=== PATIENT | male | born 1965 | race Caucasian/White ===

== ENCOUNTER 2022-02-24 21:14 | Outpatient (REF) | payer MEDICAID, SELFPAY ==
[2022-02-24 22:05] LABS: Bilirubin Negative (Negative); Blood Negative (Negative); Clarity Clear (Clear); Glucose Negative (Negative); Ketones Negative (Negative); Leukocyte Esterase Negative (Negative); Nitrite Negative (Negative); Specific Gravity 1.015 (1.005-1.025); Urobilinogen 0.2 EU/dL (Up TO 0.2)
[2022-02-24 22:12] LABS: Abs Immature Grans 0.79 10^3/uL (0.0-0.06); Absolute Basophil Count 0.04 10^3/uL (0.0-0.2); Absolute Eosinophil Count 0.19 10^3/uL (0.0-0.7); Absolute Monocyte Count 1.49 10^3/uL (0.1-0.8); Absolute Neutrophil Count 6.78 10^3/uL (1.2-6.7); Basophils % 0.4; Eosinophils % 1.7; HCT 31.7 % (40.0-50.0); HGB 10.4 g/dL (13.5-17.5); Lymphocytes % 17.3; MCHC 32.8 % (32.0-36.0); MCV 85 fL (80-95); MPV 9.7 fL (8.0-11.0); Monocytes % 13.3; Neutrophils % 60.3; Nucleated RBC 0.3 % (0.0-0.3); Platelet Count 380 10^3/uL (130-400); RBC 3.72 10^6/uL (4.36-5.78); RDW 14.5 % (11.8-14.1); RDW-SD 44.9 fL; WBC 11.24 10^3/uL (4.4-10.8)
[2022-02-24 22:15] LABS: ALT 28 U/L (16-63); AST 9 U/L (15-37); Albumin 2.6 g/dL (3.4-5.0); Alkaline Phosphatase 105 U/L (46-116); Anion Gap 9.1 mmol/L (3-11); BUN 15 mg/dL (7-18); Bilirubin, Total 0.4 mg/dL (0.2-1.0); CO2 28.9 mmol/L (21.0-32.0); CREATININE 1.3 mg/dL (0.70-1.30); Calcium 7.9 mg/dL (8.5-10.1); Chloride 101 mmol/L (98-107); Estimated GFR 57.31 (mL/min/1.73m2); Glucose 92 mg/dL (74-106); Magnesium 2.2 mg/dL (1.8-2.4); Potassium 4.5 mmol/L (3.5-5.1); Sodium 139 mmol/L (136-145); Total Protein 6.2 g/dL (6.4-8.2)
[2022-02-24 22:21] LABS: Absolute Lymphocyte Count 1.94 10^3/uL (1.2-3.4)
[2022-02-25 12:40] LABS: PHOSPHORUS 4.2 mg/dL (2.6-4.7)
== END 2022-02-24 21:15 | disposition home or self-care (01) ==
LOC: LBN 21:14
PROVIDERS: Referring Provider Orthopaedic Surgery Adult Reconstructive Orthopaedic Surgery; Visit Provider Nurse Practitioner Family
DX: M00.9 Pyogenic arthritis, unspecified (principal); Z86.19 Personal history of other infectious and parasitic diseases; M25.562 Pain in left knee; M01.X62 Direct infection of left knee in infectious and parasitic diseases classified elsewhere; B49 Unspecified mycosis; N17.9 Acute kidney failure, unspecified; N39.0 Urinary tract infection, site not specified
CPT/HCPCS: 80053; 81003; 83735; 84100; 85025; 87086

== ENCOUNTER 2022-02-27 21:14 | Outpatient (REF) | payer MEDICAID, SELFPAY ==
[2022-02-27 15:23] LABS: ALT 21 U/L (16-63); AST 6 U/L (15-37); Albumin 2.7 g/dL (3.4-5.0); Alkaline Phosphatase 104 U/L (46-116); Anion Gap 6.7 mmol/L (3-11); BUN 15 mg/dL (7-18); Bilirubin, Total 0.3 mg/dL (0.2-1.0); CO2 27.3 mmol/L (21.0-32.0); CREATININE 1.2 mg/dL (0.70-1.30); Calcium 8.1 mg/dL (8.5-10.1); Chloride 106 mmol/L (98-107); Glucose 140 mg/dL (74-106); Magnesium 2.3 mg/dL (1.8-2.4); PHOSPHORUS 3.8 mg/dL (2.6-4.7); Potassium 4.4 mmol/L (3.5-5.1); Sodium 140 mmol/L (136-145); Total Protein 7.2 g/dL (6.4-8.2)
== END 2022-02-27 21:15 | disposition home or self-care (01) ==
LOC: LBN 21:14
PROVIDERS: Visit Provider Internal Medicine Infectious Disease
DX: M25.562 Pain in left knee (principal); M01.X62 Direct infection of left knee in infectious and parasitic diseases classified elsewhere; M00.9 Pyogenic arthritis, unspecified
CPT/HCPCS: 80053; 83735; 84100

== ENCOUNTER 2022-03-03 21:51 | Outpatient (REF) | payer MEDICAID, SELFPAY ==
[2022-03-03 22:57] LABS: Abs Immature Grans 0.29 10^3/uL (0.0-0.06); Absolute Basophil Count 0.02 10^3/uL (0.0-0.2); Absolute Eosinophil Count 0.11 10^3/uL (0.0-0.7); Absolute Lymphocyte Count 1.59 10^3/uL (1.2-3.4); Absolute Monocyte Count 1.37 10^3/uL (0.1-0.8); Absolute Neutrophil Count 11.73 10^3/uL (1.2-6.7); Basophils % 0.1; Eosinophils % 0.7; HCT 28.7 % (40.0-50.0); HGB 9.2 g/dL (13.5-17.5); Immature Grans % 1.9; Lymphocytes % 10.5; MCH 27.4 pg (27.0-33.0); MCHC 32.1 % (32.0-36.0); MCV 85 fL (80-95); MPV 9.1 fL (8.0-11.0); Monocytes % 9.1; Neutrophils % 77.7; Platelet Count 465 10^3/uL (130-400); RBC 3.36 10^6/uL (4.36-5.78); RDW 14.7 % (11.8-14.1); RDW-SD 45.8 fL
== END 2022-03-03 21:52 | disposition home or self-care (01) ==
LOC: LBN 21:51
PROVIDERS: Visit Provider Internal Medicine Infectious Disease
DX: N17.9 Acute kidney failure, unspecified (principal); M01.X62 Direct infection of left knee in infectious and parasitic diseases classified elsewhere
CPT/HCPCS: 80053; 83735; 84100; 85025

== ENCOUNTER 2022-03-04 22:34 | Outpatient (REF) | payer MEDICAID, SELFPAY ==
[2022-03-04 16:24] LABS: ALT 16 U/L (16-63); AST 11 U/L (15-37); Albumin 3.1 g/dL (3.4-5.0); Alkaline Phosphatase 100 U/L (46-116); Anion Gap 7.1 mmol/L (3-11); BUN 24 mg/dL (7-18); Bilirubin, Total 0.3 mg/dL (0.2-1.0); CO2 26.9 mmol/L (21.0-32.0); CREATININE 1.3 mg/dL (0.70-1.30); Calcium 8.6 mg/dL (8.5-10.1); Chloride 104 mmol/L (98-107); Estimated GFR 57.31 (mL/min/1.73m2); Glucose 135 mg/dL (74-106); Magnesium 1.6 mg/dL (1.8-2.4); PHOSPHORUS 3.5 mg/dL (2.6-4.7); Potassium 4.4 mmol/L (3.5-5.1); Sodium 138 mmol/L (136-145); Total Protein 6.4 g/dL (6.4-8.2)
== END 2022-03-04 22:35 | disposition home or self-care (01) ==
LOC: LBN 22:34
PROVIDERS: Visit Provider Internal Medicine Infectious Disease
DX: N17.9 Acute kidney failure, unspecified (principal); M01.X62 Direct infection of left knee in infectious and parasitic diseases classified elsewhere
CPT/HCPCS: 80053; 83735; 84100

== ENCOUNTER 2022-03-06 20:24 | Outpatient (REF) | payer MEDICAID, SELFPAY ==
[2022-03-06 21:27] LABS: ALT 17 U/L (16-63); AST 11 U/L (15-37); Albumin 2.6 g/dL (3.4-5.0); Alkaline Phosphatase 89 U/L (46-116); Anion Gap 6.3 mmol/L (3-11); BUN 19 mg/dL (7-18); Bilirubin, Total 0.2 mg/dL (0.2-1.0); CO2 28.7 mmol/L (21.0-32.0); Calcium 8.4 mg/dL (8.5-10.1); Chloride 107 mmol/L (98-107); Glucose 109 mg/dL (74-106); Magnesium 1.6 mg/dL (1.8-2.4); PHOSPHORUS 4.2 mg/dL (2.6-4.7); Potassium 4.4 mmol/L (3.5-5.1); Sodium 142 mmol/L (136-145); Total Protein 5.6 g/dL (6.4-8.2)
== END 2022-03-06 20:25 | disposition home or self-care (01) ==
LOC: LBN 20:24
PROVIDERS: Visit Provider Nurse Practitioner Family
DX: Z47.1 Aftercare following joint replacement surgery (principal); B95.62 Methicillin resistant Staphylococcus aureus infection as the cause of diseases classified elsewhere
CPT/HCPCS: 80053; 83735; 84100

== ENCOUNTER 2022-03-10 21:38 | Outpatient (REF) | payer MEDICAID, SELFPAY ==
--- OUTSIDE RECORDS SUMMARY | 2022-03-10 21:40 | XMS_ITS | Encounter Summary ---
:1965 Author Organization [facility] Address [address] [place] [address] Care Team Providers Name Role Phone Marcy Alvarenga MEASURING MACHINE OPERATOR Primary Care Provider [phone] Reason for Visit Reason Onset Date Comments Medication Management 02/07/2022 Pt out of RX Encounter Details Date Type Department Care Team Description 02/07/2022 Telephone [facility] [place] Medicat ion Management [facility] Family Medicine - Marcy Ruiz MEASURING MACHINE OPERATOR (Pt out of RX) [address], [facility] [address] [place] [address] [place] [phone] (Wo rk) Social History Tobacco Use Types Packs/Day Years Used Date Never Smoker Smokeless Tobacco: Never Used Alcohol Use Standard Drinks/Week Comments Yes 2 (1 standard drink = 0.6 oz pure alcoho l) Food Insecurity Answer Date Recorded Within the past 12 months, you worried that your food would Never true 05/01/2020 run out before you got money to buy more. Within the past 12 months, the food you bought just didn't N ever true 05/01/2020 last and you didn't have money to get more. Sex Assigned at Date Recorded Not on file documented as of this encounter Functional Status Functional Status Response Date of Assessment Are you deaf or do you have serious difficulty hearing? No 12/30/2021 Because of a physical, mental, or emotional condition, No 06/04/2020 does this person have difficulty doing errands alone such as visiting a doctor's office or shopping? Cognitive Status Response Date of Assessment Because of a physical, mental, or emotional condition, No 06/04/2020 does this person have serious difficulty concentrating, remembering, or making decisions? documented as of this encounter Ordered Prescriptions Prescription Sig Dispensed Refills Start Date End Date TAMSulosin (FLOMAX) 0.4 mg TAKE 1 CAPSULE BY 90 capsule 0 capsule MOUTH ONCE DAILY documented in this encounter Miscellaneous Notes Telephone Encounter - Syl Winchester LPN - 02/07/2022 1327 EDT [facility] MEDICATION REFILL Medication: tamsulosin Medication, dose, directions verified: yes Pharmacy verified: yes Last office visit: 05/01/2020 Next office visit: none Short term supple pended to cover pt until f/u can be scheduled. elephone Encounter - Adriana Peña - 02/07/2022 1310 EDT Pt called, out of Tamsulosin. Ramirez Chaves documented in this encounter Plan of Treatment Upcoming Encounters Date Type Specialty Care Team Description 04/14/2022 Office Visit Infectious Disease Lilian Rushing MD [address] [place] [address], [address] [place] [phone] (Wo rk) documented as of this encounter Visit Diagnoses Not on filedocumented in this encounter Discontinued Medications Medication Sig Discontinue Reason Start Date End Date TAMSulosin (FLOMAX) 0.4 TAKE 1 CAPSULE BY Reorder 11/07/2021 02/07/2022 mg capsule MOUTH ONCE DAILY documented as of this encounter Additional Health Concerns Infection Onset Date Last Indicated Resolved Time MRSAComment: Hx of RMYB-Dbeh-97/23/2020 08/29/2021 08/29/20 21 C. Stoner 12/31/21 documented as of this encounter Care Teams Principal Planner Relationship Specialty Start Date End Date Gil-Marcy Santos, PCP - General Family Medicine - Primary 1 11/13/18 MEASURING MACHINE OPERATOR Care [address] [place] [address] [phone] documented as of this encounter
--- OUTSIDE RECORDS SUMMARY | 2022-03-10 21:40 | XMS_ITS | Encounter Summary ---
:1965 Author Organization [facility] Address [address] [place] [address] Care Team Providers Name Role Phone Marcy Alvarenga AGRICULTURAL COMMODITIES INSPECTOR Primary Care Provider [phone] Encounter Details Date Type Department Care Team Description 12/30/2021 Travel Social History Tobacco Use Types Packs/Day Years [...] Assigned at Date Recorded Not on file COVID-19 Exposure Response Date Recorded In the last month, have you been in contact with No / Unsure 12/30/2021 19:25 EST someone who was confirmed or suspected to have Coronavirus / COVID-19? documented as of this encounter Functional Status Functional Status Response Date of Assessment Because of a physical, mental, or emotional condition, No 06/04/2020 does this person have difficulty doing errands alone such as visiting a doctor's office or shopping? Cognitive Status Response Date of Assessment Because of a physical, mental, or emotional condition, No 06/04/2020 does this person have serious difficulty concentrating, remembering, or making decisions? documented as of this encounter Plan of Treatment Upcoming Encounters Date Type Specialty Care Team Description 04/14/2022 Office Visit Infectious Disease Lilian Rushing MD [address] [facility], [address] [place] [phone] (Wo rk) documented as of this encounter Visit Diagnoses Not on filedocumented in this encounter Additional Health Concerns Infection Onset Date Last Indicated Resolved Time MRSAComment: Hx of VCYM-Ucfi-11/23/2020 08/29/2021 08/29/20 21 C. Stoner 12/31/21 documented as of this encounter Care Teams Automation Machine Builder Relationship Specialty Start Date End Date Marcy Alvarenga, PCP - General Family Medicine - Primary 1 11/13/18 AGRICULTURAL COMMODITIES INSPECTOR Care [address] [place] [address] [address] [place] [phone] documented as of this encounter
--- OUTSIDE RECORDS SUMMARY | 2022-03-10 21:40 | XMS_ITS | Encounter Summary ---
:1965 Author Organization [facility] Address [address] [place] [address] Care Team Providers Name Role Phone Marcy Alvarenga PNP Primary Care Provider Reason for Visit Reason Onset Date Comments Patient Information Update 02/26/2022 [facility] TCM Encounter Details Date Type Department Care Team Description 02/26/2022 Telephone [facility] [place], Patient Information [facility] Family Medicine - Marcy Ruiz, PNP Update ([facility] TCM) [address], [facility] [address] [place] [address] [place], [place] [phone] (Wo rk) Social History Tobacco Use [...] making decisions? documented as of this encounter Miscellaneous Notes Telephone Encounter - Marcy Alvarenga NP - 03/05/2022 1157 EDT Noted. I signed his home health order yesterday to be scanned. Thanks Telephone Encounter - La Harper, RN - 03/05/2022 0948 EDT [facility] Medicine [facility] TCM Note Reviewed discharge paperwork/notes from [facility] Ha was admitted 02/18/22 and discharged on 02/21/22 with HH services to [facility] Dx: SAGAR, septic arthritis of Left knee Hx: fungal infection of Left knee, HIV infection, MRSA positive Was discharged home with PICC line. To continue IV anbx until 03/18/22 - amphotericin 300mg IV daily Due for CBC and CMP on 03/10/22 Has f/u scheduled already with Dr. Rainey at [facility] Ortho on 03/31/[address] Kristan ECHEVERRIA elephone Encounter - Adriana Peña - 02/26/2022 1307 EDT Admit Date: 02/18/22 Discharge Date: 02/21/22 Facility: [facility] Discharge Location: home with services through [facility] Diagnosis:SAGAR; septic arthritis of knee, left * [facility] TCM scanned to pt docs. documented in this encounter Plan of Treatment Upcoming Encounters Date Type Specialty Care Team Description 04/14/2022 Office Visit Infectious Disease Lilian Rushing MD [address] [place] [address], [address] [place], [place] [phone] (Wo rk) documented as of this encounter Visit Diagnoses Not on filedocumented in this encounter Additional Health Concerns Infection Onset Date Last Indicated Resolved Time MRSAComment: Hx of VIBW-Zwog-04/23/2020 08/29/2021 08/29/20 21 C. Stoner 12/31/21 documented as of this encounter Care Teams Display Decorator Relationship Specialty Start Date End Date Gil-Marcy Santos, PCP - General Family Medicine - Primary 1 11/13/18 PNP Care [address] [place] [phone] documented as of this encounter
--- OUTSIDE RECORDS SUMMARY | 2022-03-10 21:40 | XMS_ITS | Encounter Summary ---
:1965 Author Organization [facility] Address [address] [place] [address] Care Team Providers Name Role Phone Marcy Alvarenga PLATFORM LOADER Primary Care Provider [phone] Reason for Visit Reason Onset Date Comments Urinary Tract Infection 02/24/2022 Encounter Details Date Type Department Care Team Description 02/24/[address] [facility] [place] Urinary Tract [facility] Family Medicine - Marcy Ruiz PLATFORM LOADER Infection [place] [address] [facility] [address] [facility] [place] [address] [place] [address] [place] [phone] (Wo rk) Social History Tobacco Use [...] this encounter Miscellaneous Notes Telephone Encounter - Cathy Kumar RN - 03/03/2022 1251 EDT No results at this time. elephone Encounter - La Harper RN - 02/28/2022 1404 EDT No results as of yet elephone Encounter - La Harper RN - 02/25/2022 0933 EDT No results back as of yet elephone Encounter - La Harper RN - 02/24/2022 1543 EDT Thanks Padma, notified HH nurse Shellie. elephone Encounter - Marcy Alvarenga NP - 02/24/2022 1541 EDT I signed order for UA. Thanks elephone Encounter - La Harper RN - 02/24/2022 1533 EDT Spoke to Shellie Bonner was in the ER recently. Has a coccidiomyosis infection of the Left knee. Has services and currently has indwelling PICC line. Has f/u visits with Dr Rushing. Shellie is concerned that patient may have a UTI. She was with patient today and he was endorsing urinary frequency with little urine coming out each time. Denies fever, chills or flank pain. No pain with urination noted. Shellie did collect a UA and was wondering if she could get order from PCP elephone Encounter - Argelia Guo - 02/24/2022 1503 EDT Shefali from reports pt has a symptoms of a UTI requesting to speak to a nurse. Please call shellie back at [phone] signed by Argelia Guo at 02/24/2022 15:06 EDTdocumented in this encounter Plan of Treatment Upcoming Encounters Date Type Specialty Care Team Description 04/14/2022 Office Visit Infectious Disease Lilian Rushing MD [address] [place] [address] [address] [place] [phone] (Wo rk) Scheduled Orders Name Type Priority Associated Diagnoses Order S chedule UA WITH REFLEX SEDIMENT Lab Routine Dysuria Expe cted: 02/24/2022 (CULTURE IF POS) (Approximat e), Expires: 02/24/2023 documented as of this encounter Visit Diagnoses Diagnosis Dysuria - Primary documented in this encounter Additional Health Concerns Infection Onset Date Last Indicated Resolved Time MRSAComment: Hx of SCBY-Vwvb-33/23/2020 08/29/2021 08/29/20 21 C. Stoner 12/31/21 documented as of this encounter Care Teams Property Insurance Inspector Relationship Specialty Start Date End Date Gil-Marcy Santos, PCP - General Family Medicine - Primary 1 11/13/18 PLATFORM LOADER Care [address] [place] [address] 2 [place] [phone] documented as of this encounter
--- OUTSIDE RECORDS SUMMARY | 2022-03-10 21:40 | XMS_ITS | Encounter Summary ---
:1965 Author Organization [facility] Address [address] [place] [address] Care Team Providers Name Role Phone Marcy Alvarenga [employer] Primary Care Provider [phone] Reason for Visit Reason Onset Date Comments Medications Refill 02/07/2022 Encounter Details Date Type Department Care Team Description 02/07/2022 Telephone [facility] Lilian Rushing MD Medications Refill Infectious Disease [address] [facility] [address] [facility]-, [address] [place], [place] [address] [place] [address] [phone] (Wo rk) Social History Tobacco Use Types [...] Sig Dispensed Refills Start Date End Date posaconazole (NOXAFIL) 100 Take 3 Tablets by 90 Tablet 11 mg delayed release tablet mouth every 24 hours. BEST TAKEN WITH A FATTY MEAL documented in this encounter Miscellaneous Notes Telephone Encounter - Aissatou Iraheta RN - 02/07/2022 1421 EDT [facility] will run rx for a 30 day supply. PA only covers 30 days at a time. New rx was sent. Telephone Encounter - Peace Hunter MA - 02/07/2022 1255 EDT Patient called to request refill for posaconazole to be sent to [facility] in [facility]. Thanks. documented in this encounter Plan of Treatment Upcoming Encounters Date Type Specialty Care Team Description 04/14/2022 Office Visit Infectious Disease Lilian Rushing MD [address] [place] [address] [address] [place] [phone] (Wo rk) documented as of this encounter Visit Diagnoses Not on filedocumented in this encounter Discontinued Medications Medication Sig Discontinue Reason Start Date End Date posaconazole (NOXAFIL) Take 3 Tablets by Reorder 12/11/2021 02/07/2022 100 mg delayed release mouth every 24 tablet hours. BEST TAKEN WITH A FATTY MEAL documented as of this encounter Additional Health Concerns Infection Onset Date Last Indicated Resolved Time MRSAComment: Hx of HNAY-Kbsv-12/23/2020 08/29/2021 08/29/20 21 C. Stoner 12/31/21 documented as of this encounter Care Teams Ski Lift Attendant Relationship Specialty Start Date End Date Reubens-Marcy Santos, PCP - General Family Medicine - Primary 1 11/13/18 [employer] Care [address] [phone] documented as of this encounter
--- OUTSIDE RECORDS SUMMARY | 2022-03-10 21:40 | XMS_ITS | Encounter Summary ---
:1965 Author Organization [facility] Address [address] [place] [address] Care Team Providers Name Role Phone Marcy Alvarenga BUTTON TUFTING MACHINE OPERATOR Primary Care Provider [phone] Reason for Referral Consult (See Order Priority) - Authorization Not Required Specialty Diagnoses / Procedures Referred By Contact Refer red To Contact Diagnoses Coccidioidomycosis Other chronic osteomyelitis of left tibia (HCC) Lilian Rushing MD Moschetti, Wayne E, MD [address] [facility]-, [address] [place] [address] [place] [id number] Fax: Referral ID Status Reason Start Expiration Visits Visits Date Date Requested Authorized [id number] Authorization Specialty 01/28/2022 1 1 Not Required Services Required Question Answer Reason for Request: 56 y/o M with well-controlle d HIV and 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 Requesting eval for surgical debridement.. Dr. Rainey recommended by Ortho at [facility]. Reason for Visit Reason Onset Date Comments Medication Management 01/16/2022 Encounter Details Date Type Department Care Team Description 01/16/2022 Telephone [facility] [place] Rushing MD Medication Management [facility] Infectious Dise ase [address], [address] [place], [place] [phone] [place] [phone] (Wo rk) Social History Tobacco Use Types [...] this encounter Miscellaneous Notes Telephone Encounter - Lilian Rushing MD - 01/28/2022 0939 EDT Received a message back from Dr. Easton at [facility] who saw Poli for Ortho. He recommended seeing Dr. Rainey at [facility]. I'll put in a referral. Can we let Poli know? Telephone Encounter - Aissatou Iraheta, RN - 01/16/2022 1602 EDT Read the below note to patient. Her verbalized understanding. No further questions. Telephone Encounter - Lilian Rushing MD - 01/16/2022 3260 EDT Received call from Dr. Dixon. Returned his call today - He recommend that I get in touch with Dr. Jonnie Guevara at [facility]. He is a spine surgeon but knows about bones and Cocci as he used to work in [place] and has collaborated with Dr. Dixon on other cases. He may know of an orthopedic surgeon in the area that would be willing to take on Poli's case. There is also the medication previously mentioned, olorofim, that is available at [facility] or the [facility]. Currently undergoing trials for treatment failures, which Poli would be qualified for most likely. Dr. 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 I'll start by contacting Dr. Guevara to see if there's an orthopedic surgeon in the area that couldsee Poli or if he should go to [facility]. [email or web address] documented in this encounter Plan of Treatment Upcoming Encounters Date Type Specialty Care Team Description 04/14/2022 Office Visit Infectious Disease Lilian Rushing MD [address] [place] [address], [address] [place] [phone] (Wo rk) Scheduled Referrals Name Type Priority Associated Diagnoses Order S chedule AMB CONS/FOLLOW UP Outpatient Routine/Next Coccidioidomy cosis Expected: ORTHOPEDICS - Referral Available Other chronic 02/27/2022 EXTERNAL osteomyelitis of (Approximat e), left tibia (HCC) Expires: 01/28/2023 documented as of this encounter Visit Diagnoses Diagnosis Coccidioidomycosis - Primary Coccidioidomycosis, unspecified Other chronic osteomyelitis of left tibi a (HCC) documented in this encounter Additional Health Concerns Infection Onset Date Last Indicated Resolved Time MRSAComment: Hx of SWJT-Cjny-78/23/2020 08/29/2021 08/29/20 21 C. Stoner 12/31/21 documented as of this encounter Care Teams Track Broom Operator Relationship Specialty Start Date End Date Gil-Marcy Santos, PCP - General Family Medicine - Primary 1 11/13/18 BUTTON TUFTING MACHINE OPERATOR Care [address] [place] [phone] documented as of this encounter
--- OUTSIDE RECORDS SUMMARY | 2022-03-10 21:40 | XMS_ITS | Encounter Summary ---
:1965 Author Organization [facility] Address [address] [place] [address] Care Team Providers Name Role Phone Marcy Alvarenga CHEMICAL MAKER Primary Care Provider [phone] Encounter Details Date Type Department Care Team Description 01/07/2022 Phlebotomy Only [facility], [facility] Op Asymptomatic HIV infection (HCC); Network - [facility] Coccidioid omycosis [facility] - Outpatient Phlebotomy Drawing [address] [place] [address] Social History Tobacco Use Types Packs/Day Years [...] Visit Infectious Disease Lilian Rushing MD [address] [facility], [address] [place] [address] (Wo rk) documented as of this encounter Procedures Procedure Name Priority Date/Time Associated Diagnosis Comme nts UA WITH REFLEX Routine 01/07/2022 10:35 Asymptomatic HIV Resul ts for SEDIMENT (CULTURE IF EDT infection (HCC) this procedure POS) are in the results section. HIV 1 RNA Routine 01/07/2022 9:24 Asymptomatic HIV Results for QUANTITATION EDT infection (HCC) this procedu re are in the results section. MISCELLANEOUS TEST, Routine 01/07/2022 9:24 Coccidioidomycosis Results for GREEN EDT this procedure are in the results section. T CELL SUBSETS Routine 01/07/2022 9:24 Asymptomatic HIV Result s for EDT infection (HCC) this procedu re are in the results section. COMPREHENSIVE Routine 01/07/2022 9:24 Asymptomatic HIV Results for METABOLIC PANEL EDT infection (HCC) this procedure (CMP) Coccidioidomycosis are in th e results section. documented in this encounter Results UA WITH REFLEX SEDIMENT (CULTURE IF POS) (01/07/2022 10:35 EDT) Color UA Yellow Colorless to Dark [facility] Yellow [facility] Clarity UA Clear Clear [facility] Glucose UA Negative Negative [facility] Bilirubin UA Negative Negative [facility] Ketones UA Negative Negative [facility] Specific [place], 1.020 1.001 - 1.035 [facility] Urine [facility] Blood UA Negative Negative [facility] pH, UA 6.5 4.6 - 8.0 [facility] Protein UA Negative Negative [facility] Urobilinogen UA 0.2 0.2 , 1.0, Normal [facility] mg/dL [facility] Nitrite UA Negative Negative [facility] Leukocyte Esterase UA Negative Negative [facility] Specimen Urine - Urine specimen collection, clean catch (procedure) Performing Organization Address [facility]/ZIP Code Phon e Number [facility] [address] [place] [address] MISCELLANEOUS TEST, [place] (01/07/2022 9:24 EDT) Pathologist [facility] Miscellaneous Test, SEE NOTE [facility] Comment: LABORATORIES Test ? Result ?Flag ??Unit ?? RefValue Posaconazole, S ?2310 ?ng/mL ??>700 ? ADDITIONAL INFORMATION------- ?This test was developed and its performance jimmie Nextworth ?determined by [facility] in a manner consistent with CLIA ?requirements. This test has not been cleared or approved by ?the U.S. Food and Drug Administration. ?Test Performed by: ?[facility] [address] ?[address] [place] [address] ?Document Review Specialist: Pritesh Mcgee M.D. Ph.D.; CLIA # [id number] Specimen Blood - Venous blood (substance) Performing Organization Address City/[facility]/ZIP Code Phon e Number [facility] [address] [place] [address] (ABNORMAL) COMPREHENSIVE METABOLIC PANEL (CMP) (01/07/2022 9:24 EDT) Pathologist [facility] nature Sodium 138 136 - 145 [facility] mmol/L [facility] Potassium 4.2 3.5 - 5.0 [facility] mmol/L [facility] Chloride 99 96 - 110 mmol/L [facility] CO2 Total 29 22 - 32 mmol/L [facility] Glucose 113 (H) 70 - 100 mg/dL [facility] BUN 17 10 - 26 mg/dL [facility] Creatinine 0.90 0.66 - 1.25 [facility] mg/dL [facility] eGFR 96 >60 [facility] mL/min/1.73m2 [facility] Total Protein 6.8 6.3 - 8.2 g/dL [facility] Albumin 3.8 3.4 - 4.9 g/dL [facility] Alkaline Phosphatase 90 38 - 126 U/L [facility] AST 23 15 - 46 U/L [facility] ALT 18 <50 U/L [facility] Bilirubin, Total 0.3 <1.4 mg/dL [facility] Calcium 8.7 8.5 - 10.5 [facility] mg/dL [facility] Albumin/Globulin Ratio 1.3 1.0 - 2.5 [facility] Anion Gap 10 5 - 14 [facility] Specimen Blood - Venous blood (substance) Performing Organization Address City/State/ZIP Code Phon e Number [facility] [address] [place] [address] HIV 1 RNA QUANTITATION (01/07/2022 9:24 EDT) HIV RNA Detection, Undetected Undetected [facility] Qual copies/mL LABORATORY SERVICES Specimen Blood - Venous blood (substance) Narrative [facility] - 01/09/2022 14:05 EDT New platform in use 05/20/2021 The quantification range of this assay i s 20 IU/mL to 10,000,000 IU/mL. ??Testing was performed using the Areli HIV test ([employer] with the areli 6800 System. Performing Organization Address City/State/ZIP Code Phon e Number [facility] [address] [place] [address] SERVICES T CELL SUBSETS (01/07/2022 9:24 EDT) Pathologist Sig nature % CD3 72 56 - 84 % [facility] LABOR[facility]ORY SERVICES % CD4 32 31 - 64 % [facility] SERVICES % CD8 36 9 - 39 % [facility] SERVICES Absolute CD3 1,086 840-2,669 Cells/uL [facility] SERVICES Absolute CD4 493 488-1,734 Cells/uL [facility] SERVICES Absolute CD8 547 154-1,097 Cells/uL [facility] SERVICES 01/31 Ratio 0.90 >=0.90 [facility] Specimen Blood - Venous blood (substance) Performing Organization Address City/State/ZIP Code Phon e Number [facility] [address] [place] [address] SERVICES documented in this encounter Visit Diagnoses Diagnosis Asymptomatic HIV infection (HCC) Asymptomatic human immunodeficiency viru s (HIV) infection status Coccidioidomycosis Coccidioidomycosis, unspecified documented in this encounter Additional Health Concerns Infection Onset Date Last Indicated Resolved Time MRSAComment: Hx of [id number]-88/23/2020 08/29/2021 08/29/20 21 C. Stoner 12/31/21 documented as of this encounter Care Teams Property Claim Rep Relationship Specialty Start Date End Date Gil-Marcy Santos, PCP - General Family Medicine - Primary 1 11/13/18 CHEMICAL MAKER Care [address] [place] [phone] documented as of this encounter
--- OUTSIDE RECORDS SUMMARY | 2022-03-10 21:40 | XMS_ITS | Encounter Summary ---
:1965 Author Organization [facility] Address [address] [place] [address] Care Team Providers Name Role Phone Marcy Alvarenga GAS MASK ASSEMBLER Primary Care Provider [phone] Reason for Visit Reason Comments New Patient Visit HIV. Patient states no quest ions or concerns Encounter Details Date Type Department Care Team Description 01/09/2022 Office Visit [facility] - Lilian Rushing Asy mptomatic HIV infection (HCC) (Primary Dx); [facility] Infectious MD Coccidioidomycosis; Disease [address] Other chronic osteomyelitis of left tibi a (HCC); [address] [facility], [address] [place] [address] [place] [phone] Social History Tobacco Use Types Packs/Day Years [...] / COVID-19? documented as of this encounter Last Filed Vital Signs Vital Sign Reading Time Taken Comments Blood Pressure 134/72 01/09/2022 1141 EDT Pulse 88 01/09/2022 1141 EDT Temperature 36.2 ??C (97.2 ??F) 01/09/2022 1141 EDT Respiratory Rate 16 01/09/2022 1141 EDT Oxygen Saturation 99% 01/09/2022 1141 EDT Inhaled Oxygen Concentration - - Weight 63 kg (139 lb) 01/09/2022 1141 EDT Height - - Body Mass Index 22.78 06/18/2021 1334 EDT documented in this encounter Functional Status Functional Status Response [...] making decisions? documented as of this encounter Progress Notes Lilian Rushing MD - 01/09/2022 1130 EDT Thanks Socorro. I'll check in with Poli to see if he's interested in any of these options! Lilian Lilian Merino MD - 01/09/2022 1130 EDT INFECTIOUS DISEASE OUTPATIENT FOLLOW UP VISIT Patient name: Ha Soria Today's date: 01/09/22 HPI: Ha Soria is a 56 y.o. who is following up for HIV and Coccidioidomycosis. See previous notes for full histories. We had started him on Itraconazole in December 2020. Unfortunately, his knee really wasn't feeling much better. We had done a repeat MRI on 06/02/21 that didn't really look any better, so I followed up with Dr. Jacobs from the [facility] [place]. See07/03/21 note for details of that conversation. Briefly, he recommended reassessing every 4 months, repeat an MRI/CT at 12 months, and that it wasn't helpful to follow titers. I last saw him for follow up 09/03/21. His knee still wasn't feeling any better - getting swollen and red intermittently - so we decided to switch to Posaconazole to see if that made any difference. He also had a repeat MRI 11/27/21- see results below. He was seen in the ED on 12/30/32 for BAKER, photophobia, N/V, and blurry vision. AnLP was done which showed no WBCs, no RBCs, protein 47, glucose 59. He improved with pain medication so was thought to be a migraine and was discharged home. He is here today for follow up. HIV diagnosis history: Date of Dx - 11/2014 Risk Factor(s) - MSM Tobi CD4 count - unknown OI History - none known Resistance History - unknown Current Meds and Medication History - Neville, previously on Stribild (2014) [id number] - unknown Hep A - Immune per records Hep B - SAb+ Hep C Ab - neg (06/23/19) Today, he says he's having a lot of pain in the knee. Still getting red and hot intermittently. No side effects from the Posaconazole. Physical Exam Vital Signs: BP 134/72 (BP Cuff Location: Left arm, BP Patient Position: Sitting, BP Cuff Sizes: Adult, regular) Pulse 88 Temp 36.2 ??C (97.2 ??F) (Temporal) Resp 16 Wt 63 kg (139 lb) SpO2 99% BMI 22.78 kg/m?? General: NAD Skin: no rash or obvious lesions HEENT: AT/NC. Pulm: No increased work of breathing Abd: non-distended Ext: L knee significantly larger than the R without erythema or warmth, + tenderness over medial tibial tuberosity Psych: Appropriate Medications: Genvoya Itraconazole: 01/17/21-09/03/21 Posaconazole: 09/04/21-present Labs: Date CD4(%) VL 11/02/15 503(23%) - 05/07/16 - Undetectable 11/19/16 439(24%) - 09/16/17 389(34%) Undetectable 04/28/19 530(30%) - 09/01/19 403(27%) Undetectable 12/05/19 - <20 03/05/20 728(33%) <20 - Undetected 11/26/20 600(34) Undetected 06/18/21 591(34) Undetected 09/03/21 493(32) pending 12/24/20 Mekhi: ESR 20 CRP 7.2 (mg/L) WBC count 7.65 01/17/21 Cocci Ab - reactive (IgM neg, IgG pos) - 1:64 06/18/21 Cocci Ab - reactive (IgM neg, IgG pos) - 1:64 02/15/21: Itraconazole level 2.3 (+ Hydroxyitraconazole level 1.7) 06/18/21: Itraconazole level 2.5 (+Hydroxyitraconazole level 2.1) 10/07/21: Posaconazole level 1420 ng/mL (goal >1000 ng/mL or >1.0 mcg/mL) 01/07/22: Posaconazole level pending Lab Results Component Value Date NA 138 01/07/2022 K 4.2 01/07/2022 CL 99 01/07/2022 CO2 29 01/07/2022 ANIONGAP 10 01/07/2022 BUN 17 01/07/2022 CREATININE 0.90 01/07/2022 CALCGFR 96 01/07/2022 GLU 91 06/18/2021 CA 8.7 06/18/2021 BILT 0.3 06/18/2021 SGOT 30 06/18/2021 SGPT 27 06/18/2021 APS 83 06/18/2021 PROT 6.6 06/18/2021 SPEALB 3.7 06/18/2021 ?? Micro: Mekhi: L knee fluid - 10,840 WBCs (36% PMNs, 13% Lymphs, 51% Monocytes) L knee fluid culture: 12/24/20 - no growth (bacterial culture) - GS with many WBCs, no bacteria Fungal culture - COCCIDIOIDES POSADASII/IMMITIS ?? Radiology: L knee MRI: 11/27/21 - IMPRESSION?? 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 Deficiency of the medial and lateral menisci which may be degenerative or could be related to the infectious process, also stable Assessment and Plan: 56 y.o. M with HIV and coccidioidomycosis who is here for follow up. Coccidioidomycosis - I reviewed his most recent MRI with him as well as with Radiology. The read was that it was similar,but it actually looks like the tibial involvement is about 20% worse, per Radiology. I will reach back out to Dr. Harmon at the [facility] with the updated information. And I'll reachout to Ortho as well in case there is something we can do for pain other than a steroid injection. HIV - doing well. UTD on labs. - Currently on Genvoya, no issues - Sexual activity: None since last visit - G/C (negative pharyngeal 06/18/21) - RPR (nonreactive 06/18/21) - CD4 Q3-6 months (last: 493, 01/07/22) - VL Q3-6 months (last: pending, 01/07/22) - CMP Q3-6 months (last 01/07/22) Health maintenance - Lipids Q6-12 months (last 06/18/21) - A1C Q6-12 months (last 06/18/21) - UA Q6 months (if on TAF/TDF) (last 01/07/22) - Anal cancer screening: negative 2014. - BMD if >50 (never had) - ASCVD Risk (ACC/AHA Calculator) - defer to PCP, people living with HIV are at increased risk of CAD - Colonoscopy: last done 06/18/21 3) Immunizations MMR - 05/30/19: Mumps IgG pos, Rubella IgG pos, Rubeola IgG neg (MMR given 09/01/19) Varicella - IgG pos (05/30/19) PCV13 given 01/24/16, PPSV23 given 12/05/19- due for repeat PPSV23 5 years after last PPSV23 Hep A - immune per records Hep B - SAb +, SAg neg (06/23/19) MCV4 - #1 given 05/30/19, #2 given 12/05/19, then booster Q5 years Flu - annually, (given 09/03/21) Men B - not indicated Hib - not indicated Tdap - 03/07/20 Shingrix - #1 12/15/19, #2 06/04/20 HPV - Not indicated COVID - Moderna x 2 doses (01/19/21, 02/16/21) Booster 10/23/21 (Moderna) No orders of the defined types were placed in this encounter. No orders of the defined types were placed in this encounter. It has been a pleasure seeing Ha Soria in clinic today. Lilian Rushing MD, MPH [facility] Infectious Disease Office: [phone] I spent a total of 65 minutes on the date of this encounter meeting with the patient and reviewing documentation/coordinating care as described in the above note. No procedures were performed at the time of the visit. documented in this encounter Plan of Treatment Upcoming Encounters Date Type Specialty Care Team Description 04/14/2022 Office Visit Infectious Disease Lilian Rushing MD [address] [place] [address] [address] [place] [address] (Wo rk) documented as of this encounter Visit Diagnoses Diagnosis Asymptomatic HIV infection (HCC) - Prima ry Asymptomatic human immunodeficiency viru s (HIV) infection status Coccidioidomycosis Coccidioidomycosis, unspecified Other chronic osteomyelitis of left tibi a (HCC) Medication monitoring encounter Encounter for therapeutic drug monitorin g documented in this encounter Additional Health Concerns Infection Onset Date Last Indicated Resolved Time MRSAComment: Hx of [id number]-40/23/2020 08/29/2021 08/29/20 21 C. Stoner 12/31/21 documented as of this encounter Care Teams Carbon Cutter Relationship Specialty Start Date End Date Marcy Alvarenga, PCP - General Family Medicine - Primary 1 11/13/18 GAS MASK ASSEMBLER Care [address] [place] [address] [address] [place] [address] documented as of this encounter
--- OUTSIDE RECORDS SUMMARY | 2022-03-10 21:40 | XMS_ITS | Clinical Summary ---
:1965 Author Organization [facility] Address [address] [place] [address] Care Team Providers Name Role Phone Marcy Alvarenga [employer] TRAINER Primary Care Provider [phone] Allergies No known active allergies Medications Medication Sig Dispensed Refills Start Date End Date Status cetirizine (ZYRTEC) 10 1 tab(s) orally 0 Active mg tablet PRN Clindamycin Phosphate 1 nael applied 0 Active 1 % swab topically PRN benzonatate (TESSALON) 1 cap(s) orally 0 Active 100 mg capsule PRN chlorhexidine Use to wash 473 mL 1 08/21/2020 Act alicia (HIBICLENS) 4 % yourself head to liquidIndications: toe with this soap Community acquired daily for at least MRSA infection 1 week Additional Information Patient taking differently: DAILY PRN, Use to wash yourself head to toe with this soap daily for at least 1 week, Reported on 06/18/2021 lisinopriL (PRINIVIL) 10 mg TAKE 1 TABLET BY MOUTH 90 Tablet 3 04/24/2021 Active tablet EVERY DAY [id number]-tenof Take 1 Tablet by mouth 90 Tablet 3 Active ALAFEN (GENVOYA) daily for 90 days. [phone] mg tabletIndications: HIV infection TAMSulosin (FLOMAX) 0.4 mg TAKE 1 CAPSULE BY MOUTH 90 capsule 0 02/07/2022 Active capsule ONCE DAILY posaconazole (NOXAFIL) 100 Take 3 Tablets by mouth 90 Tablet 11 02/07/2022 Active mg delayed release tablet every 24 hours. BEST TAKEN WITH A FATTY MEAL Active Problems Problem Noted Date MRSA (methicillin resistant staph aureus) culture posi tive 08/21/2020 Plantar wart of left foot 05/01/2020 Last Assessment & Plan: Chronic uncontrolled We will refer you to podiatry for eval a nd treatment He also has 2 warts one on each toe benja mmend duct tape therapy-keep duct tape on for 6 days take off in several day file it with chi board and then reapply continue process for a few weeks until warts resolved Colon cancer screening 05/01/2020 Last Assessment & Plan: Referral to GI for colon cancer screenin g Arthritis of left knee 12/06/2019 Last Assessment & Plan: Chronic uncontrolled secondary to coccid iomycosis infection over 10 years ago Referral to orthopedics for eval and pos sible steroid injections Establishing care with new doctor, encounter for 09/14 Last Assessment & Plan: First visit with me Overall good good health given chronic c onditions Up-to-date on vaccines Recommend checking lipid panel due to fa kiel history Colon cancer screening referral placed Follow-up annually and as needed Asymptomatic HIV infection 09/09/2019 Benign prostatic hyperplasia 09/09/2019 Last Assessment & Plan: Chronic fair controlled Continue tamsulosin daily-if symptoms wo rsen or persist may benefit from referral to urology Environmental allergies 09/09/2019 Essential hypertension 09/09/2019 Last Assessment & Plan: Chronic stable Continue lisinopril daily History of coccidioidomycosis 09/09/2019 Last Assessment & Plan: Chronic stable Nocturnal cough 09/09/2019 Other acne 09/09/2019 Encounters Date Type Specialty Care Team Description 02/27/2022 Telephone Family Medicine [place], Orders (Non Pre-visit) Marcy Ruiz NP 02/26/2022 Telephone Family Medicine [place], Patient Info rmation Marcy Ruiz NP Update ([facility] TCM) 02/24/2022 Telephone Family Medicine [place], Urinary Trac t Infection Marcy Ruiz NP 02/07/2022 Telephone Family Medicine [place], Medication M anagement Marcy Ruiz NP (Pt out of R X) 02/07/2022 Telephone Infectious Lilian Rushing, Medications Refill Disease 01/16/2022 Telephone Infectious Lilian Rushing, Medication Management Disease 01/09/2022 Office Visit Infectious Lilian Rushing, Asymptomati c HIV infection ([facility]) (Primary Dx); Disease Coccidioidomyco sis; Other chronic o steomyelitis of left tibia ([facility]); Medication kana toring encounter 01/07/2022 Phlebotomy Only Clinical Lab, [facility] Op Asymptomatic HIV infection ([facility]); Laboratory Phlebotomy Coccidioidomyco sis 12/30[facility]2021 [facility] Medicine Crys Lundy, DO headache, unspecified Shi, headache type ( Primary Faustino Guido MD Dx) 12/30/2021 Travel 12/23/2021 Telephone Infectious Aissatou Iraheta, RN Pre-visit Pl anning Disease from Last 3 Months Immunizations Name Administration Dates Next Due Covid-19 mRNA Booster Vaccine (MODERNA 10/23/2021 COVID-19 BOOSTER) PF 0.25 mL IM (18 yrs+) Covid-19 mRNA Vaccine (MODERNA COVID-19) 02/16/2021, 021 PF 0.5 ml IM (18 yrs+) Influenza Vaccine Quad PF 0.5 ml IM (6 09/03/2021 mos+) MMR Vaccine SQ 09/01/2019 Meningococcal Conjugate (MCV4) Vaccine 12/05/2019, 9 (MENACTRA) 4-Valent IM Pneumococcal Conj Vacc PCV13 (PREVNAR-13) 01/24/2016 IM Pneumococcal Polysaccharide (PPSV23) 12/05/2019 Vaccine (PNEUMOVAX-23) =>2YO SQ/IM Shingrix (Zoster Vaccine, Recombinant) IM 06/04/2020, 2019, 12/05/2019 Tdap Vaccine =>7YO IM 03/07/2020 Surgical History Surgery Date Site/Laterality Comments KNEE GANGLION SURGERY Medical History Medical History Date Comments HIV (human immunodeficiency virus infection) (HCC) BPH (benign prostatic hyperplasia) Hypertension Family History Medical History Relation Name Comments Hypertension Brother Diabetes Father Heart Attack Father Stroke Father Breast Cancer Maternal Grandmother Cancer Mother skin Hypertension Sister Relation Name Status Comments Brother Alive Father Maternal Grandmother Mother Sister Alive Social History Tobacco Use Types Packs/Day Years [...] Assigned at Date Recorded Not on file Last Filed Vital Signs Vital Sign Reading Time Taken Comments Blood Pressure 134/72 01/09/2022 1141 EDT Pulse 88 01/09/2022 1141 EDT Temperature 36.2 ??C (97.2 ??F) 01/09/2022 1141 EDT Respiratory Rate 16 01/09/2022 1141 EDT Oxygen Saturation 99% 01/09/2022 1141 EDT Inhaled Oxygen Concentration - - Weight 63 kg (139 lb) 01/09/2022 1141 EDT Height 166.4 cm (5' 5.5) 06/18/2021 1334 EDT Body Mass Index 22.78 06/18/2021 1334 EDT Plan of Treatment Upcoming Encounters Date Type Specialty Care Team Description 04/14/2022 Office Visit Infectious Disease Lilian Rushing MD [address] [place] [address], [address] [place] [address] 9000 (Wo rk) Health Maintenance Due Date Last Done Comments HIV Screening 1982 Advance Directive 1984 Preventive Care Visit 1984 Barium Enema (Colon Cancer Screening) 2016 Fecal Blood Test (Colon Cancer 2016 Screening) Fecal DNA (Colon Cancer Screening) 2016 Sigmoidoscopy (Colon Cancer 2016 Screening) Behavioral Health Screen 05/01/2021 05/01/2020 Social Determinants Of Health (SDOH) 05/01/2021 05/01/2020 COVID-19 Vaccine (3 - Moderna risk 11/20/2021 10/23/2021, 0 02/16/2021, 4-dose series) 01/19/2021 Colonoscopy (Colon Cancer Screening) 06/18/2022 06/18/2021, 06/18/2021 Colorectal Cancer Screening 06/18/2022 Lipid Profile Screening (Cholesterol) 06/18/2026 06/18/2021 , 05/01/2020 Tetanus (Adult) Immunization 03/07/2030 03/07/2020 Hepatitis C Screen Completed 06/23/2019 Pertussis (Adult) Immunization Completed 03/07/2020 Shingles Immunization Completed 06/04/2020, 03/07/2020, 12/05/2019 Influenza Immunization (Adult) Completed 09/03/2021 Procedures Procedure Name Priority Date/Time Associated Diagnosis Comme nts UA WITH REFLEX Routine 01/07/2022 Asymptomatic HIV Results f or SEDIMENT (CULTURE 10:35 EDT infection (HCC) this pr ocedure IF POS) are in the results section. MISCELLANEOUS TEST, Routine 01/07/2022 9:24 Coccidioidomycosis Results for GREEN EDT this procedure are in the results section. COMPREHENSIVE Routine 01/07/2022 9:24 Asymptomatic HIV Results for METABOLIC PANEL EDT infection (HCC) this procedure (CMP) Coccidioidomycosis are in th e results section. HIV 1 RNA Routine 01/07/2022 9:24 Asymptomatic HIV Results for QUANTITATION EDT infection (HCC) this procedu re are in the results section. T CELL SUBSETS Routine 01/07/2022 9:24 Asymptomatic HIV Result s for EDT infection (HCC) this procedu re are in the results section. ECG REPORT - 12/31/2021 8:48 SCANNED EST ED LUMBAR PUNCTURE Routine 12/30/2021 Results f or BEDSIDE OR CLINIC 21:31 EST this proce dure PERFORMED are in the results section. CELL COUNT, CSF STAT 12/30/2021 Results for 21:23 EST this procedure are in the results section. TOTAL PROTEIN, CSF STAT 12/30/2021 Results f or 21:23 EST this procedure are in the results section. GLUCOSE CSF STAT 12/30/2021 Results for 21:23 EST this procedure are in the results section. CELL COUNT,CSF STAT 12/30/2021 Results for 21:23 EST this procedure are in the results section. BACTERIAL STAT 12/30/2021 Results for CULTURE/SMEAR 21:23 EST this procedure are in the results section. CT HEAD WO CONTRAST STAT 12/30/2021 Results for 20:45 EST this procedure are in the results section. EKG 12-LEAD STAT 12/30/2021 Results for 19:42 EST this procedure are in the results section. C REACTIVE PROTEIN STAT Add-on 12/30/2021 Results f or 19:38 EST this procedure are in the results section. COMPLETE BLOOD STAT 12/30/2021 Results for COUNT AND 19:38 EST this procedure DIFFERENTIAL are in the results section. COMPREHENSIVE STAT 12/30/2021 Results for METABOLIC PANEL 19:38 EST this procedu re (CMP) are in the results section. from Last 3 Months Results UA WITH REFLEX SEDIMENT (CULTURE IF POS) (01/07/2022 10:35 EDT) Pathologist [facility] Color UA Yellow Colorless to Dark [facility] Yellow [facility] Clarity UA Clear Clear [facility] Glucose UA Negative Negative [facility] Bilirubin UA Negative Negative [facility] Ketones UA Negative Negative [facility] Specific [place], 1.020 1.001 - 1.035 [facility] Urine [facility] Blood UA Negative Negative [facility] pH, UA 6.5 4.6 - 8.0 [facility] Protein UA Negative Negative [facility] Urobilinogen UA 0.2 0.2 , 1.0, Normal [facility] mg/dL [facility] Nitrite UA Negative Negative [facility] Leukocyte Esterase UA Negative Negative [facility] Specimen Urine - Urine specimen collection, clean catch (procedure) Performing Organization Address City/State/ZIP Code Phon e Number [facility] [address] [place] [address] HIV 1 RNA QUANTITATION (01/07/2022 9:24 EDT) Pathologist [facility] HIV RNA Detection, Undetected Undetected [facility] Qual copies/mL LABORATORY SERVICES Specimen Blood - Venous blood (substance) Narrative [facility] - 01/09/2022 14:05 EDT New platform in use 05/20/2021 The quantification range of this assay i s 20 IU/mL to 10,000,000 IU/mL. ??Testing was performed using the Areli HIV test ([employer] with the areli 6800 System. Performing Organization Address City/[facility] Code Phon e Number [facility] [address] [place] [address] SERVICES MISCELLANEOUS TEST, [place] (01/07/2022 9:24 EDT) Miscellaneous Test, SEE NOTE [facility] Comment: LABORATORIES Test ? Result ?Flag ??Unit ?? RefValue Posaconazole, S ?2310 ?ng/mL ??>700 ? ADDITIONAL INFORMATION------- ?This test was developed and its performance jimmie [employer] ?determined by [facility] in a manner consistent with CLIA ?requirements. This test has not been cleared or approved by ?the U.S. Food and Drug Administration. ?Test Performed by: ?[facility] [address] ?[address] [place] [address] ?Real Property Appraiser: Pritesh Mcgee M.D. Ph.D.; CLIA # [id number] Specimen Blood - Venous blood (substance) Performing Organization Address City/[facility] Phon e Number [facility] [address] [place] [address] T CELL SUBSETS (01/07/2022 9:24 EDT) Pathologist Sig nature % CD3 72 56 - 84 % [facility] % CD4 32 31 - 64 % [facility] % CD8 36 9 - 39 % [facility] Absolute CD3 1,086 840-2,669 Cells/uL [facility] Absolute CD4 493 488-1,734 Cells/uL [facility] Absolute CD8 547 154-1,097 Cells/uL [facility] 4/8 Ratio 0.90 >=0.90 [facility] Specimen Blood - Venous blood (substance) Performing Organization Address City/State/ZIP Code Phon e Number [facility] [address] [place] [address] SERVICES (ABNORMAL) COMPREHENSIVE METABOLIC PANEL (CMP) (01/07/2022 9:24 EDT)Only the most recent of2 resultswithin the time period is included. Pathologist Sig nature Sodium 138 136 - 145 [facility] mmol/L [facility] Potassium 4.2 3.5 - 5.0 [facility] mmol/L [facility] Chloride 99 96 - 110 mmol/L [facility] CO2 Total 29 22 - 32 mmol/L [facility] Glucose 113 (H) 70 - 100 mg/dL [facility] BUN 17 10 - 26 mg/dL [facility] Creatinine 0.90 0.66 - 1.25 [facility] mg/dL [facility] eGFR 96 >60 [facility] mL/min/1.73m2 [facility] Total Protein 6.8 6.3 - 8.2 g/dL [facility] Albumin 3.8 3.4 - 4.9 g/dL [facility] Alkaline Phosphatase 90 38 - 126 U/L [facility] AST 23 15 - 46 U/L [facility] ALT 18 <50 U/L [facility] Bilirubin, Total 0.3 <1.4 mg/dL [facility] Calcium 8.7 8.5 - 10.5 [facility] mg/dL [facility] Albumin/Globulin Ratio 1.3 1.0 - 2.5 [facility] Anion Gap 10 5 - 14 [facility] Specimen Blood - Venous blood (substance) Performing Organization Address [facility]/ZIP Code Phon e Number [facility] [address] [place] [address] ECG REPORT - SCANNED (12/31/2021 8:48 EST) Specimen Narrative This result has an attachment that is no t available. ED LUMBAR PUNCTURE BEDSIDE OR CLINIC PERFORMED (12/30/2021 21:31 EST) Narrative [facility] EKG - 12/30/2021 21:3 1 EST Faustino Shi MD ? 12/30/2021 23:08 Lumbar Puncture Date/Time: 12/30/2021 21:31 Performed by: Faustino Shi MD Authorized by: Faustino Shi MD Consent: ??Consent obtained: ??Verbal ??Consent given by: ??Patient ??Risks discussed: ??Bleeding, infectio n, pain, headache and nerve damage ??Alternatives discussed: ??Alternative treatment and observation [place] protocol: ??Procedure explained and questions ans wered to patient or proxy's satisfaction: yes ?Required blood products, implants, de vices, and special equipment available: yes ?Immediately prior to procedure a time out was called: yes ?Site/side marked: yes ?Patient identity confirmed: ??Verball y with patient and arm band Pre-procedure details: ??Procedure purpose: ??Diagnostic ??Preparation: Patient was prepped and draped in usual sterile fashion ?? Anesthesia (see MAR for exact dosages): ??Anesthesia method: ??Local infiltrati on ??Local anesthetic: ??Lidocaine 1% w/o epi Procedure details: ??Lumbar space: ??L4-L5 interspace ??Patient position: ??R lateral decubit us ??Needle gauge: ??22 ??Needle type: ??Spinal needle - Quinck e tip ??Needle length (in): ??3.5 ??Ultrasound guidance: no ?Number of attempts: ??1 ??Tubes of fluid: ??4 ??Total volume (ml): ??4 Post-procedure: ??Puncture site: ??Direct pressure appl ied ??Patient tolerance of procedure: ??Deepa erated well, no immediate complications Performing Organization Address City/State/ZIP Code Phon e Number [facility] EKG CELL COUNT, CSF (12/30/2021 21:23 EST) RBC, CSF 0Comment: None /cmm [facility] Seen [facility] Nucleated Cells, 0Comment: None 0 - 5 /cmm [facility] CSF Seen [facility] Total Volume CSF 3.5 ml [facility] Tube Cntd. 4 [facility] Comment, CSF Clear and [facility] colorless [facility] Tube Vol. 1.0 ml [facility] Specimen Fluid - Cerebrospinal fluid sample (spec imen) Performing Organization Address [facility] Phon e Number [facility] [address] [place] [address] BACTERIAL CULTURE/SMEAR (12/30/2021 21:23 EST) Pathologist Sig demi Organism ID No Growth [facility] Smear No Neutrophils [facility] SeenComment: [facility] gram stain interpreted. Smear No bacteria seen [facility] Specimen Fluid - Cerebrospinal fluid sample (spec imen) Performing Organization Address [facility] Phon e Number [facility] [address] [place] [address] (ABNORMAL) TOTAL PROTEIN, CSF (12/30/2021 21:23 EST) Pathologist Sig demi Total Protein, CSF 47 (H) 12 - 45 mg/dL [facility] Specimen Fluid - Cerebrospinal fluid sample (spec imen) Performing Organization Address [facility] Phon e Number [facility] [address] [place] [address] GLUCOSE CSF (12/30/2021 21:23 EST) Glucose, CSF 59 40 - 70 mg/dL [facility] Comment: [facility] NOTE: Reference range for Glucose in CSF: 60% - 80% of the S lucy/Plasma Glucose Specimen Fluid - Cerebrospinal fluid sample (spec imen) Performing Organization Address [facility] Phon e Number [facility] [address] [place] [address] CT HEAD WO CONTRAST (12/30/2021 20:45 EST) Anatomical Region Laterality Modality Head Computed Tomography Specimen Impressions [facility] - 12/30/2021 21:13 EST No hydrocephalus, acute intracranial hemorrhage, or mass effect. THIS DOCUMENT HAS BEEN ELECTRONICALLY SI GNED BY ANDREW CHRIS MD FOR ANY QUESTIONS OR CONCERNS REGARDING THIS REPORT PLEASE CALL [facility] AT [phone] [facility] - 12/30/2021 21:13 EST PROCEDURE INFORMATION: Exam: CT Head Without Contrast Exam date and time: 12/30/2021 8:30 PM Age: 56 years old Clinical indication: Other: Unknown; Add itional info: Headache, new or worsening, immunodeficiency (age 19-49y) TECHNIQUE: Imaging protocol: Computed tomography of the head without contrast. Radiation optimization: All CT scans at this facility use at least one of these dose optimization ciarra hniques: automated exposure control; mA and/or kV adjustmen t per patient size (includes targeted exams where dose is m atched to clinical indication); or iterative reconstruction . COMPARISON: MR BRAIN W/WITHOUT CONTRAST 02/14/2021 3: 58 PM FINDINGS: Brain: No evidence for acute transcortic al infarct. No mass effect or midline shift. No extra-axial collection. No acute intracranial hemorrhage. Basal cisterns are patent. Cerebral ventricles: No ventriculomegaly . Paranasal sinuses: Visualized sinuses ar e unremarkable. No fluid levels. Mastoid air cells: Visualized mastoid ai r cells are well aerated. Bones/joints: Unremarkable. No acute fra cture. Soft tissues: Unremarkable. Procedure Note Andrew Chris MD - 12/30/2021 PROCEDURE INFORMATION: Exam: CT Head Without Contrast Exam date and time: 12/30/2021 8:30 PM Age: 56 years old Clinical indication: Other: Unknown; Add itional info: Headache, new or worsening, immunodeficiency (age 19-49y) TECHNIQUE: Imaging protocol: Computed tomography of the head without contrast. Radiation optimization: All CT scans at this facility use at least one of these dose optimization ciarra hniques: automated exposure control; mA and/or kV adjustmen t per patient size (includes targeted exams where dose is m atched to clinical indication); or iterative reconstruction . COMPARISON: MR BRAIN W/WITHOUT CONTRAST 02/14/2021 3: 58 PM FINDINGS: Brain: No evidence for acute transcortic al infarct. No mass effect or midline shift. No extra-axial collection. No acute intracranial hemorrhage. Basal cisterns are patent. Cerebral ventricles: No ventriculomegaly . Paranasal sinuses: Visualized sinuses ar e unremarkable. No fluid levels. Mastoid air cells: Visualized mastoid ai r cells are well aerated. Bones/joints: Unremarkable. No acute fra cture. Soft tissues: Unremarkable. IMPRESSION No hydrocephalus, acute intracranial hem orrhage, or mass effect. THIS DOCUMENT HAS BEEN ELECTRONICALLY SI GNED BY ANDREW CHRIS MD FOR ANY QUESTIONS OR CONCERNS REGARDING THIS REPORT PLEASE CALL [facility] AT [phone] Performing Organization Address City/State/ZIP Code Phon e Number [facility] EKG 12-LEAD (12/30/2021 19:42 EST) Specimen Narrative [facility] - 8:43 EST ? [facility] ? Test Date: ?2021-12-30 Pat Name: ? HA SORIA ?Department: ? Room: ? C03 Gender: ? Male ? Grill Cook: ?? LR : ?1965 ? Requested By: HEDY Eisenberg Order Number: [id number] ? Abdi FERNANDEZ: ?? IDALIA SANTOS MD ? Measurements Intervals ?[place] ? Rate: ? 61 ? P: ?78 MI: ? 142 ?QRS: ?61 QRSD: ? 90 ? T: ?62 QT: ? 464 ? QTc: ?467 ? Interpretive Statements Normal sinus rhythm with sinus arrhythmi a Possible Left atrial enlargement No previous ECG available for comparison I reviewed the tracing and have either a greed or edited the findings in this report. Electronically Signed On 2 8:43:18 EST by IDALIA SANTOS MD. Procedure Note Idalia Santos MD - 12/31/2021 [facility] [place] Date: 2021-12-30 Pat Name: HA SORIA Department: Room: C03 Gender: Male Grill Cook: FABIANO : 1965 Requested By: HEDY Eisenberg Order Number: [id number] Reading MD: Shabbri SANTOS MD Measurements Intervals [place] Rate: 61 P: 78 MI: 142 QRS: 61 QRSD: 90 T: 62 QT: 464 QTc: 467 Interpretive Statements Normal sinus rhythm with sinus arrhythmi a Possible Left atrial enlargement No previous ECG available for comparison I reviewed the tracing and have either a greed or edited the findings in this report. Electronically Signed On 8:43:18 EST by IDALIA SANTOS MD. Performing Organization Address City/State/ZIP Code Phon e Number [facility] (ABNORMAL) COMPLETE BLOOD COUNT AND DIFFERENTIAL (12/30/2021 19:38 EST) Pathologist Sig nature WBC 7.17 4.00 - 10.40 [facility] K/cmm [facility] RBC 5.28 4.36 - 5.78 [facility] M/[facility] Hemoglobin 15.0 13.8 - 17.3 [facility] gm/dL [facility] HCT 43.4 39.5 - 50.2 % [facility] MCV 82 81 - 95 fl [facility] MCH 28.4 27.6 - 33.0 pg [facility] MCHC 34.6 32.8 - 36.4 [facility] gm/dL [facility] RDW-CV 13.7 <14.2 % [facility] RDW-SD 41.0 <46.0 fl [facility] PLT 372 141 - 377 K/cmm [facility] MPV 8.7 (L) 9.5 - 12.7 fl [facility] Neutrophils 68.0 % [facility] Lymphocytes 19.9 % [facility] Monocytes 9.9 % [facility] Eosinophils 1.1 % [facility] Basophils 0.4 % [facility] Immature Grans 0.7 % [facility] Absolute Neutrophils 4.87 2.20 - 8.85 [facility] K/[facility] Absolute Lymphocytes 1.43 1.09 - 3.30 [facility] Monocytes 0.71 0.10 - 0.80 [facility] Absolute Eosinophils 0.08 0.03 - 0.61 [facility] K/cmm [facility] Absolute Basophils 0.03 0.01 - 0.11 [facility] Absolute Immature 0.05 0.00 - 0.06 [facility] Type of Differential: Auto [facility] Specimen Blood - Venous blood (substance) Performing Organization Address City/State/ZIP Code Phon e Number [facility] [address] [place] [address] (ABNORMAL) C REACTIVE PROTEIN (12/30/2021 19:38 EST) Pathologist Sig nature C-Reactive Protein 10.0 (H) <10.0 mg/L [facility] Specimen Blood - Venous blood (substance) Performing Organization Address City/State/ZIP Code Phon e Number [facility] [address] [place] [address] from Last 3 Months Additional Health Concerns Infection Onset Date Last Indicated MRSAComment: 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 Stoner 12/31/21 Insurance Payer Benefit Plan / Subscriber ID Effective Phone Address T ype Group Dates [place] [id number] 2021-Prese [address] Medicaid [facility] [phone] (Work) [phone] Ha Soria Personal/Family Self 1965 [address] [phone] [employer] (Work) [phone] Ha Soria Personal/Family Self 1965 [address] [phone] [employer]) [phone] Ha Soria Personal/Family Self 1965 [address] [phone] [place]) [phone] Ha Soria Personal/Family Self 1965 [address] [phone] [place] (Work) [phone] EstellaHa nielsen Personal/Family Self 1965 [phone] [address] [facility] ([address] [phone] [place] (Work) [phone] Ha Soria Personal/Family Self 1965 [address] [facility] [address] [phone] [place] (Work) [phone] EstellaHa nielsen Personal/Family Self 1965 [phone] [address] [facility] (Home) [facility] [phone] [place] (Work) [phone] Care Teams Operating Room Manager Relationship Specialty Start Date End Date Gil-Marcy Santos, PCP - General Family Medicine - Primary 1 11/13/18 [employer] Care [address] [place] [phone]
--- OUTSIDE RECORDS SUMMARY | 2022-03-10 21:40 | XMS_ITS | Encounter Summary ---
:1965 Author Organization [facility] Address [address] [place] [address] Care Team Providers Name Role Phone Marcy Alvarenga MANAGER DRUG Primary Care Provider [phone] Reason for Visit Reason Onset Date Comments Orders (Non Pre-visit) 02/27/2022 Encounter Details Date Type Department Care Team Description 02/27/2022 Telephone [facility] [place] Orders (Non Pre-visit) [facility] [place] - Marcy Ruiz NP [address], [facility] [address] [place] [address] [place] [phone] (Wo rk) Social History Tobacco Use [...] Miscellaneous Notes Telephone Encounter - Marcy Alvarenga MANAGER DRUG - 02/27/2022 1721 EDT [place] for skilled nurse facility for IV abx. Thanks elephone Encounter - Tricia Garcia RN - 02/27/2022 1624 EDT Dianne from states that Ha was sent home on IV antibiotics and his sister does not feel she can manage this at home. He wants to go to a skilled facility. Dianne is requesting a verbal order for social work to assist with finding a skilled facility. I provided the verbal order. To [facility] to sign off. documented in this encounter Plan of Treatment Upcoming Encounters Date Type Specialty Care Team Description 04/14/2022 Office Visit Infectious Disease Lilian Rushing MD [address] [facility] [address] [place] [address] (Wo rk) documented as of this encounter Visit Diagnoses Not on filedocumented in this encounter Additional Health Concerns Infection Onset Date Last Indicated Resolved Time MRSAComment: Hx of JTHE-Stex-51/23/2020 08/29/2021 08/29/20 21 C. Stoner 12/31/21 documented as of this encounter Care Teams Blueprint Tracer Relationship Specialty Start Date End Date Marcy Alvarenga, PCP - General Family Medicine - Primary 1 11/13/18 MANAGER DRUG Care [address] [place] [address] [address] [place] [address] documented as of this encounter
--- OUTSIDE RECORDS SUMMARY | 2022-03-10 21:41 | XMS_ITS | Encounter Summary ---
:1965 Author Organization [facility] Address [address] [place] [address] Care Team Providers Name Role Phone Marcy Alvarenga [employer] Primary Care Provider [phone] Reason for Visit Reason Comments Injections Encounter Details Date Type Department Care Team Description 12/07/2020 Nurse Only [facility] - Nurse, Cmvc Gonorrh ea of pharynx [facility] Infectious Infectious Disease in mal e (Primary Dx) Disease [address] [place], [place] [address] Social History Tobacco Use Types Packs/Day Years [...] been in contact with No / Unsure 12/07/2020 11:28 EST someone who was confirmed or suspected to have Coronavirus / COVID-19? documented as of this encounter Last Filed Vital Signs Vital Sign Reading Time Taken Comments Blood Pressure - - Pulse - - Temperature 36.2 ??C (97.1 ??F) 12/07/2020 1207 EST Respiratory Rate - - Oxygen Saturation - - Inhaled Oxygen Concentration - - Weight - - Height - - Body Mass Index - - documented in this encounter Functional Status Functional [...] making decisions? documented as of this encounter Patient Instructions Patient InstructionsAissatou Morales RN - 12/07/2020 11:00 EST [facility] Patient Instructions ceftriaxone (injection) Pronunciation: SEF trye AX one Brand: Rocephin What is the most important information I should know about ceftriaxone? You should not use ceftriaxone if you have ever had a severe allergic reaction to any type of cephalosporin antibiotic (Omnicef, Keflex, and others). Do not use ceftriaxone in a child without a doctor's advice. Ceftriaxone should never be used in a premature baby, or in any baby who has jaundice (yellowing of the skin or eyes). What is ceftriaxone? Ceftriaxone is a cephalosporin (SEF a low spor in) antibiotic. It works by fighting bacteria in yourbody. Ceftriaxone is used to treat many kinds of bacterial infections, including severe or life-threatening forms such as meningitis. Ceftriaxone is also used to prevent infection in people having certain types of surgery. Ceftriaxone may also be used for purposes not listed in this medication guide. What should I discuss with my healthcare provider before using ceftriaxone? Do not use ceftriaxone in a child without a doctor's advice, and never give more than the child's prescribed dose. Ceftriaxone injection can be dangerous when given to a baby with any intravenous medicines that contain calcium, including total parental nutrition (TPN). Ceftriaxone should neverbe used in a premature baby, or in any baby who has jaundice. You should not use this medicine if you have ever had a severe allergic reaction to ceftriaxone or any other cephalosporin antibiotic, such as: ?? cefaclor (Ceclor), cefadroxil (Duricef), cefazolin (Kefzol); ?? cefdinir (Omnicef), cefditoren (Spectracef); ?? cefixime (Suprax); ?? cefotaxime (Claforan), cefotetan (Cefotan); ?? cefpodoxime (Vantin), cefprozil (Cefzil); ?? ceftaroline (Teflaro), ceftazidime (Ceptaz, Fortaz), ceftibuten (Cedax); ?? cefuroxime (Ceftin); or ?? cephalexin (Keflex), cephradine (Velosef). To make sure ceftriaxone is safe for you, tell your doctor if you have: ?? an allergy to penicillin; ?? kidney disease (or if you are on dialysis); ?? liver disease; ?? diabetes; ?? gallbladder disease; ?? a stomach or intestinal disorder such as colitis; ?? poor nutrition; or ?? a condition for which you take a blood thinner (warfarin, Coumadin, Jantoven). Ceftriaxone is not expected to harm an unborn baby. Tell your doctor if you are or plan to become . Ceftriaxone can pass into breast milk, but effects on the nursing baby are not known. Tell your doctor if you are breast-feeding. How should I use ceftriaxone? Ceftriaxone is injected into a muscle, or into a vein through an IV. A healthcare provider will give you this injection when ceftriaxone is used to prevent infection from surgery. You may be shown how to use an IV at home to treat an infection. Do not give yourself this medicine if you do not understand how to use the injection and properly dispose of needles, IV tubing, and other items used. Follow all directions on your prescription label. Do not use this medicine in larger or smaller amounts or for longer than recommended. You may need to mix ceftriaxone with a liquid (diluent) before using it. If you are using the injections at home, be sure you understand how to properly mix and store the medication. Use only the diluent your doctor has recommended. Do not mix ceftriaxone in the same injection with other antibiotics, or with any diluent that contains calcium, including a TPN (total parenteral nutrition) solution. After mixing your medicine, you will need to use it within a certain number of hours or days. This will depend on the diluent and how you store the mixture (at room temperature, in a refrigerator, or frozen). Carefully follow the mixing and storage instructions provided with your medicine. Ask your pharmacist if you have questions. If you use other injectable medications, be sure to flush your intravenous catheter between injections of each medication. Use this medicine for the full prescribed length of time. Your symptoms may improve before the infection is completely cleared. Skipping doses may also increase your risk of further infection that is resistant to antibiotics. Ceftriaxone will not treat a viral infection such as the common cold or flu. Ceftriaxone can cause unusual results with certain lab tests for glucose (sugar) in the urine. Tell any doctor who treats you that you are using this medicine. Store unmixed ceftriaxone powder at room temperature, away from moisture, heat, and light. If your medicine was provided in a frozen form or was frozen after mixing, thaw it in a refrigeratoror at room temperature. Do not composing room machinist apprentice a microwave or boiling water. Use the medicine as soon as possible after thawing it. Do not refreeze. Use a disposable needle and syringe only once. Follow any state or local laws about throwing away used needles and syringes. Use a puncture-proof sharps disposal container (ask your pharmacist where to get one and how to throw it away). Keep this container out of the reach of children and pets. What happens if I miss a dose? Call your doctor for instructions if you miss a dose of ceftriaxone. What happens if I overdose? Seek emergency medical attention or call the Poison Help line at . What should I avoid while using ceftriaxone? Antibiotic medicines can cause diarrhea, which may be a sign of a new infection. If you have diarrhea that is watery or bloody, call your doctor. Do not use anti-diarrhea medicine unless your doctor tells you to. What are the possible side effects of ceftriaxone? Get emergency medical help if you have signs of an allergic reaction (hives, difficult breathing, swelling in your face or throat) or a severe skin reaction (fever, sore throat, burning in your eyes, skin pain, red or purple skin rash that spreads and causes blistering and peeling). Call your doctor at once if you have: ?? a seizure (convulsions); ?? severe stomach pain, diarrhea that is watery or bloody; ?? sudden weakness or ill feeling, fever, chills, cold or flu symptoms, mouth sores; ?? pale or yellowed skin, dark colored urine; ?? severe pain in your upper stomach that comes and goes or spreads to your back; ?? a blood cell disorder --skin rash or tight feeling, severe tingling or numbness, pain, muscle weakness; or ?? kidney or bladder problems --pain in your side or lower back spreading to your groin, blood in your urine, painful or difficult urination, little or no urine. Common side effects may include: ?? mild diarrhea; ?? warmth, tight feeling, or a hard lump where the injection was given; ?? vaginal itching or discharge; ?? rash; or ?? abnormal liver function tests. This is not a complete list of side effects and others may occur. Call your doctor for medical advice about side effects. You may report side effects to FDA at 4-688-JPG-4375. What other drugs will affect ceftriaxone? Other drugs may interact with ceftriaxone, including prescription and dtbn-equ-shpixsv medicines, vitamins, and herbal products. Tell your doctor about all your current medicines and any medicine you start or stop using. Where can I get more information? Your doctor or pharmacist can provide more information about ceftriaxone. Remember, keep this and all other medicines out of the reach of children, never share your medicineswith others, and use this medication only for the indication prescribed. Every effort has been made to ensure that the information provided by [employer]. ('[employer]')is accurate, up-to-date, and complete, but no guarantee is made to that effect. Drug information contained herein may be time sensitive. [employer] information has been compiled for use by healthcare practitioners and consumers in the [place] and therefore [employer] does not warrant that uses outside of the [place] are appropriate, unless specifically indicated otherwise. [employer] drug information does not endorse drugs, diagnose patients or recommend therapy. [employer] drug information is an informational resource designed to assist licensed healthcare practitioners in caring for their patients and/or to serve consumers viewing this service as a supplement to, and not a substitute for, the expertise, skill, knowledge and judgment of healthcare practitioners. The absence of a warning for a given drug or drug combination in no way should be construed to indicate that the drug or drug combination is safe, effective or appropriate for any given patient. [employer] does not assume any responsibility for any aspect of healthcare administered with the aid of information [employer] provides. The information contained herein is not intended to cover all possible uses, directions, precautions, warnings, drug interactions, allergic reactions, or adverse effects. If you have questions about the drugs you are taking, check with your doctor, nurse or pharmacist. Copyright 9881-5340 [employer]. Version: 9.01. Revision date: 10/06/2017. Care instructions adapted under license by [facility]. If you have questions about a medical condition or this instruction, always ask your healthcare professional. [employer] disclaims any warranty or liability for your use of this information. documented in this encounter Progress Notes Aissatou Morales RN - 12/07/2020 1100 EST Infectious Disease Nurse Visit Patient name: Ha Soria Today's date: 12/07/20; 12:38 HPI: Ha Soria is a 55 y.o. male with history of HIV who presents for treatment of pharyngeal N. Gonorrhea. Orders for IM Ceftriaxone 500mg x 1 dose in 12/05/20 telephone encounter (and resultnote). He will need a test of cure in 7-14 days. Ha stated he has never had any reactions to antibiotics in the past. He has a hx of chlamydia infection before but never gonorrhea. Denies sore throat, tonsil exudate, and swollen lymph nodes. Medications Current Outpatient Medications Medication ??? benzonatate (TESSALON) 100 mg capsule ??? cetirizine (ZYRTEC) 10 mg tablet ??? chlorhexidine (HIBICLENS) 4 % liquid ??? Clindamycin Phosphate 1 % swab ??? zahhjpn-med-mbdwr-tenof ALAFEN (GENVOYA) [phone] mg tablet ??? lisinopriL (PRINIVIL) 10 mg tablet ??? tamsulosin (FLOMAX) 0.4 mg capsule No current facility-administered medications for this visit. Allergies No Known Allergies Problem List: Patient Active Problem List Diagnosis ??? Asymptomatic HIV infection ([facility]) ??? Benign prostatic hyperplasia ??? Environmental allergies ??? Essential hypertension ??? History of coccidioidomycosis ??? Nocturnal cough ??? Other acne ??? Establishing care with new doctor, encounter for ??? Arthritis of left knee ??? Plantar wart of left foot ??? Colon cancer screening ??? MRSA (methicillin resistant staph aureus) culture positive Physical Exam Vital Signs: Temp 36.2 ??C (97.1 ??F) (Temporal) General: NAD Psych: Appropriate ID Pertinent Medications: Genvoya daily Labs/Micro: 12/03/20: Misc C trach/N gonor Amplified RNA ?? SOURCE: ?THROAT ? C. trach, Misc, Amplified ?Negative ? Negative ? RNA ? SOURCE: ?THROAT ? N. gonorr, Misc, Amplified ?? Positive ??A ?Negative ? RNA Plan/Procedure: 1) Ceftriaxone 500mg vial reconstituted with 1ml of 1% Lidocaine (lot [id number], exp 03/15). Per ordersof Dr. Rushing, injection of Ceftriaxone 500mg IM given in the left dorsogluteal site by AISSATOU MORALES RN. Patient instructed to remain in clinic for 20 minutes afterwards, and to report any adverse reaction to me immediately. Medication tolerated well after 20 mins. No side effects reported. Dr. Era Mota was present and available in the facility if needed. Aissatou Morales RN [facility] Infectious Disease Office: [phone] CC: Lilian Rushing MD documented in this encounter Plan of Treatment Upcoming Encounters Date Type Specialty Care Team Description 04/14/2022 Office Visit Infectious Disease Lilian Rushing MD [address] [facility], [address] [place] [address] (Wo rk) documented as of this encounter Visit Diagnoses Diagnosis Gonorrhea of pharynx in male - Primary Gonococcal infection of pharynx documented in this encounter Administered Medications Inactive Administered Medications - up to 3 most recent administrations Medication Order MAR Action Action Date Dose Rate Site cefTRIAXone (ROCEPHIN) Given 12/07/2020 12:36 500 mg Left Gluteus Medius injection 500 mg EST 500 mg, intramuscular, ONCE, 1 dose, Starting on Thu12/07/20 at 1300, Until Thu12/07/20 at 1236, Routine documented in this encounter Orders Medications Ordered That Might Not Have Count Last Ord ered Date First Ordered Date Been Administered cefTRIAXone (ROCEPHIN) injection 500 mg 1 12/07/19 21 documented in this encounter Care Teams Countersinker Balance Screw Hole Relationship Specialty Start Date End Date Marcy Alvarenga, PCP - General Family Medicine - Primary 1 11/13/18 [employer] Care [address] [place] [phone] documented as of this encounter
--- OUTSIDE RECORDS SUMMARY | 2022-03-10 21:41 | XMS_ITS | Encounter Summary ---
:1965 Author Organization [facility] Address [address] [place] [address] Care Team Providers Name Role Phone Marcy Alvarenga RN INTENSIVE CARE UNIT Primary Care Provider [phone] Reason for Visit Reason Onset Date Comments Prior Auth, Medication 08/06/2021 Encounter Details Date Type Department Care Team Description 08/06/2021 Telephone [facility] - Lilian Rushing Pri or Auth, Medication [facility] Infectious Dise ase [address] [place] [address] [address]-, [place] [address] Social History Tobacco Use Types Packs/Day [...] Telephone Encounter - Aissatou Iraheta RN - 08/07/2021 0856 EDT PA approved. LM for patient with this information. elephone Encounter - Aissatou Iraheta RN - 08/06/2021 1701 EDT Additional information faxed as requested. elephone Encounter - Aissatou Iraheta RN - 08/06/2021 1329 EDT PA sent to plan on cover my meds. elephone Encounter - Jeniffer Leiva - 08/06/2021 1153 EDT Pt called said he needs a PA for Itraconazole. He has been out for 4 days already. [facility] in [place]. documented in this encounter Plan of Treatment Upcoming Encounters Date Type Specialty Care Team Description 04/14/2022 Office Visit Infectious Disease Lilian Rushing MD [address] [facility] [address] [place] [address] (Wo rk) documented as of this encounter Visit Diagnoses Not on filedocumented in this encounter Care Teams Electrician [employer] Relationship Specialty Start Date End Date Gil-Marcy Santos, PCP - General Family Medicine - Primary 1 11/13/18 RN INTENSIVE CARE UNIT Care [address] [place] [address] [address] [place] [phone] documented as of this encounter
--- OUTSIDE RECORDS SUMMARY | 2022-03-10 21:41 | XMS_ITS | Encounter Summary ---
:1965 Author Organization [facility] Address [address] [place] [address] Care Team Providers Name Role Phone Marcy Alvarenga CHARGE OPERATOR Primary Care Provider [phone] Reason for Visit Reason Comments Headache Headache and nausea/vomiting started last night, has not stopped. Has taken ibuprofen to minimal e ffect. Nausea Pt actively vomiting in tria ge, brought to room. Encounter Details Date Type Department Care Team Description 12/30/2021 Emergency [facility] - Crys Orellana DO [address] [place] [address] Acute nonintractable [facility] Emergency Faustino Shi MD [address] [place] [phone] headache, unspecified Department headache type (Primary [address]) [place], [place] [id number] Social History Tobacco Use Types Packs/Day Years [...] Sign Reading Time Taken Comments Blood Pressure 140/83 12/30/20212311 EST Pulse 90 12/30/20212311 EST Temperature 36.7 ??C (98 ??F) 12/30/2021 2252 EST Respiratory Rate 18 12/30/20212311 EST Oxygen Saturation 96% 12/30/20212311 EST Inhaled Oxygen Concentration - - Weight - [...] making decisions? documented as of this encounter Discharge Instructions Faustino Kim MD - 12/30/2021 As we discussed I suspect that this was a migraine. All of your tests today were unremarkable including your head CT and your spinal tap. There is no evidence of infection or bleeding. I do recommend that she go home and get plenty of sleep. Drink plenty of fluids to stay well-hydrated. Continue all of your other medications. If your headache should return You may take Tylenol (acetaminophen) 1000 mg every 6 hours and/or ibuprofen 600 mg every 6 hours as needed for pain. You can also try taking this with some caffeine such as half a cup of coffee or cup of Coke. If your symptoms worsen such as uncontrolled vomiting, fevers, confusion, weakness etc. return to the ER. Follow-up with Dr. Rushing on as scheduled. documented in this encounter Medications at Time of Discharge Medication Sig Dispensed Refills Start Date End Date benzonatate (TESSALON) 1 cap(s) orally PRN 0 100 mg capsule cetirizine (ZYRTEC) 10 1 tab(s) orally PRN 0 mg tablet chlorhexidine Use to wash yourself 473 mL 1 08/21/2020 (HIBICLENS) 4 % head to toe with liquidIndications: this soap daily for Community acquired MRSA at least 1 week infection Clindamycin Phosphate 1 1 nael applied 0 % swab topically PRN bzlgjkx-vtn-lnvfx-tenof Take 1 Tablet by 90 Tablet 3 2021 ALAFEN (GENVOYA) mouth daily for 90 [phone] mg days. tabletIndications: HIV infection lisinopriL (PRINIVIL) 10 TAKE 1 TABLET BY 90 Tablet 3 04/24 mg tablet MOUTH EVERY DAY posaconazole (NOXAFIL) Take 3 Tablets by 270 Tablet 3 202102/07/2022 100 mg delayed release mouth every 24 tablet hours. BEST TAKEN WITH A FATTY MEAL TAMSulosin (FLOMAX) 0.4 TAKE 1 CAPSULE BY 90 capsule 0 11/0702/07/2022 mg capsule MOUTH ONCE DAILY documented as of this encounter Discharge Disposition Disposition Code Departure Means Destination Comments Home or Self Penitentiary Pt aler wi th no complaints at tme of d/c home. le ft with mother belongings with pt. pain free at time of d/c. documented in this encounter ED Notes Poonam Holland RN - 12/30/20212256 EST Report to LAUREN Cochran Poonam Clobert RN - 12/30/20212199 EST Resting quietly with eyes closed, respirations even and unlabored. Denies pain Jonnie Galvin RN - 12/30/20212056 EST Provider at bedside Faustino Zamarripa MD - 12/30/20212045 ESTAssociated Order(s): Lumbar Puncture Emergency Department Visit Assessment and ED Course 56-year-old male with a past history of HIV under excellent control as well as coccidiomycosis infection of the left knee who presents tonight with abrupt onset of severe headache last evening that is persistent throughout the day and has been accompanied by nausea, vomiting, blurry vision, and severephotophobia. Patient appears uncomfortable but nontoxic. He does have some photophobia as well as some nystagmus. Neurologic exam is otherwise unremarkable. He does not have any meningismus. The abruptonset of his symptoms has me somewhat concerned about the possibility of subarachnoid hemorrhage. With his other history I did also be concerned about the possibility of infection. Noncontrast CT the brain has returned unremarkable. His lab work including CBC and CRP are also veryreassuring. While awaiting these results the patient was treated with a dose of IV Tylenol, metoclopramide, and IV fluid. He is already feeling much better although not completely back to normal. In light of the duration of his symptoms I did recommend an LP to further evaluate for subarachnoid hemorrhage. After discussing the risks and the benefits patient consents to LP which was performed without complication. Spinal fluid has returned with 0 red cells and 0 white cells. On reevaluation patient states that he is completely pain-free and feels back to normal in regards to his head. He does continue to have some pain in his left knee. Symptoms likely represent migraine headache. I do feel he is appropriate for discharge and outpatient management. Patient does have a follow-up appointment with Dr. Rushing on . Final diagnoses: Acute nonintractable headache, unspecified headache type Disposition: Discharged Chief complaint: Headache and vomiting HPI Ha Soria is a 56 y.o. male with a past history of HIV under excellent control and more recent coccidiomycosis infection involving his left knee who presents tonight complaining of severe global headache associated with nausea, vomiting, photophobia, and unsteadiness. Patient states that shortly after he got home from work last night he had very abrupt onset of global headache. He states itis worse behind his eyes. He also has pain rating down the back of his neck. He has vomited at least12 times. He states he feels dizzy. He has photophobia and some blurry vision. He feels globally weak but denies any focal weakness. He does state when he is walking he feels unsteady although has not f fiorella. Patient believes that he has had 1 migraine in his life but this is much worse and is by far the worst headache he has ever had. Patient denies any recent head injury. Has had no fevers or chills. No recent cough or cold symptoms. Prior to onset of the headache he had no GI symptoms such as abdominal pain vomiting diarrhea etc. No urinary symptoms. No myalgias. He does have severe pain and swelling in the left knee secondary tohis coccidiomycosis. Patient tells me that this was incurred after he fell while hiking in [place]. He washed an abrasion out with some stream water and subsequently developed an infection and a Wayne's cyst. Unfortunately the Wayne's cyst ruptured while it was being surgically removed and resulted inworse infection. Has been treated with antifungals for quite some time. In August he was changed to posconazole. He states he has been compliant on all of his medications. In regards to his HIV as of May he had an undetectable viral count and a CD4 count of 591. History was provided by: Patient patient's pertinent PMH, FH, SH were reviewed and edited as necessary. ROS A 10-point review of systems was performed. The patient answered negative to all questions with the exceptions of those explicitly detailed as positives in the HPI. Pertinent negatives are also explicitly stated. Physical Exam BP (!) 176/95 Temp 36.7 ??C (98 ??F) Resp 12 SpO2 100% A medical screening exam was performed. Physical Exam Nursing notes and vital signs were reviewed. Constitutional: Patient appears uncomfortable but nontoxic. Head: atraumatic. Normocephalic. Eyes: Pupils equal and reactive to light, no scleral icterus. He does have significant photophobia. He also has bilateral horizontal nystagmus is much worse with left gaze. He also describes some spinning vertigo with left gaze. ENT: Moist oral mucosa without apparent lesions.external ears unremarkable. Neck: supple with Full ROM, no cervical LAD Heart: RRR without MRG Lungs: No respiratory distress. Clear to auscultation bilaterally. Abdomen: Soft NT/ND. Normal Bowel sounds. No hepato-splenomegally. Back: no CVA tenderness Skin: No overt rashes on exposed skin Upper Extremities: Moving spontaneously, warm and well perfused. Lower Extremities: moving spontaneously. No LE edema. No calf tenderness Neuro: Alert and Oriented. normal speech. Cranial nerves II through XII are intact bilaterally. Gzntww-gpud-iqxxph was normal. Normal gross strength in all 4 extremities. He does have bilateral horizontal nystagmus worse with left gaze. 2+ patellar reflexes. Psych: No agitation or overt thought disorder Imaging obtained was reviewed and independently interpreted. Laboratory results independently reviewed. Procedures Lumbar Puncture Date/Time: 12/30/2021 21:31 Performed by: Faustino Shi MD Authorized by: Faustino Shi MD Consent: Consent obtained: Verbal Consent given by: Patient Risks discussed: Bleeding, infection, pain, headache and nerve damage Alternatives discussed: Alternative treatment and observation [place] protocol: Procedure explained and questions answered to patient or proxy's satisfaction: yes Required blood products, implants, devices, and special equipment available: yes Immediately prior to procedure a time out was called: yes Site/side marked: yes Patient identity confirmed: Verbally with patient and arm band Pre-procedure details: Procedure purpose: Diagnostic Preparation: Patient was prepped and draped in usual sterile fashion Anesthesia (see MAR for exact dosages): Anesthesia method: Local infiltration Local anesthetic: Lidocaine 1% w/o epi Procedure details: Lumbar space: L4-L5 interspace Patient position: R lateral decubitus Needle gauge: 22 Needle type: Spinal needle - Quincke tip Needle length (in): 3.5 Ultrasound guidance: no Number of attempts: 1 Tubes of fluid: 4 Total volume (ml): 4 Post-procedure: Puncture site: Direct pressure applied Patient tolerance of procedure: Tolerated well, no immediate complications Jonnie Rosa RN - 12/30/20211956 EST Provider at bedside Poonam Holland RN - 12/30/20211951 EST 12 Lead EKG Performed by Poonam Holland RN and shown to Jachowski, Crys C, D*. Jonnie Rosa RN - 12/30/2021 194 EST 12 Lead EKG Performed by JONNIE ROSA RN and shown to Crys Orellana DO. documented in this encounter Plan of Treatment Upcoming Encounters Date Type Specialty Care Team Description 04/14/2022 Office Visit Infectious Disease Lilian Rushing MD [address] [facility], [address] [place] [address] (Wo rk) documented as of this encounter Procedures Procedure Name Priority Date/Time Associated Comments Diagnosis ECG REPORT - SCANNED 12/31/2021 8:48 EST ED LUMBAR PUNCTURE Routine 12/30/2021 21:31 Resul ts for this BEDSIDE OR CLINIC EST procedure are in PERFORMED the results section. CELL COUNT, CSF STAT 12/30/2021 21:23 Results for this EST procedure are i n the results section. BACTERIAL STAT 12/30/2021 21:23 Results for this CULTURE/SMEAR EST procedure are in the results section. CELL COUNT,CSF STAT 12/30/2021 21:23 Results f or this EST procedure are i n the results section. TOTAL PROTEIN, CSF STAT 12/30/2021 21:23 Resul ts for this EST procedure are i n the results section. GLUCOSE CSF STAT 12/30/2021 21:23 Results for this EST procedure are i n the results section. CT HEAD WO CONTRAST STAT 12/30/2021 20:45 Resu lts for this EST procedure are i n the results section. EKG 12-LEAD STAT 12/30/2021 19:42 Results for this EST procedure are i n the results section. COMPLETE BLOOD COUNT STAT 12/30/2021 19:38 Res ults for this AND DIFFERENTIAL EST procedure a re in the results section. C REACTIVE PROTEIN STAT Add-on 12/30/2021 19:38 Resul ts for this EST procedure are i n the results section. COMPREHENSIVE STAT 12/30/2021 19:38 Results fo r this METABOLIC PANEL (CMP) EST proced ure are in the results section. documented in this encounter Results ED LUMBAR PUNCTURE BEDSIDE OR CLINIC PERFORMED (12/30/2021 21:31 EST) Narrative [facility] EKG - 12/30/2021 21:3 1 EST Faustino Shi MD ? 12/30/2021 23:08 Lumbar Puncture Date/Time: 12/30/2021 21:31 Performed by: Faustino Shi MD Authorized by: Faustino Shi MD Consent: ??Consent obtained: ??Verbal ??Consent given by: ??Patient ??Risks discussed: ??Bleeding, infectio n, pain, headache and nerve damage ??Alternatives discussed: ??Alternative treatment and observation [place] protocol: ??Procedure explained and questions ans wered [...] Organization Address City/State/ZIP Code Phon e Number [facility] EKG CELL COUNT, CSF (12/30/2021 21:23 EST) RBC, CSF 0Comment: None /[facility] Nucleated Cells, 0Comment: None 0 - 5 /cmm [facility] CSF Seen [facility] Total Volume CSF 3.[address] [facility] Tube Cntd. [address] [facility] Comment, CSF Clear and [facility] colorless [facility] Tube Vol. 1.[address] [facility] Specimen Fluid - Cerebrospinal fluid sample (spec imen) Performing Organization Address [facility] Phon e Number [facility] [address] [place] [address] (ABNORMAL) TOTAL PROTEIN, CSF (12/30/2021 21:23 EST) Pathologist Sig nature Total Protein, CSF 47 (H) 12 - 45 mg/dL [facility] Specimen Fluid - Cerebrospinal fluid sample (spec imen) Performing Organization Address [facility] Phon e Number [facility] [address] [place] [id number] GLUCOSE CSF (12/30/2021 21:23 EST) Glucose, CSF 59 40 - 70 mg/dL [facility] Comment: [facility]ENTER [facility] NOTE: Reference range for Glucose in CSF: 60% - 80% of the S lucy/Plasma Glucose Specimen Fluid - Cerebrospinal fluid sample (spec imen) Performing Organization Address [facility] Phon e Number [facility] [address] [place] [address] BACTERIAL CULTURE/SMEAR (12/30/2021 21:23 EST) Pathologist Sig nature Organism ID No Growth [facility] Smear No Neutrophils [facility] SeenComment: [facility] gram stain interpreted. Smear No bacteria seen [facility] Specimen Fluid - Cerebrospinal fluid sample (spec imen) Performing Organization Address [facility] Phon e Number [facility] [address] [place] [address] CT HEAD WO CONTRAST (12/30/2021 20:45 EST) Anatomical Region Laterality Modality Head Computed Tomography Specimen Impressions [facility] - 12/30/2021 21:13 EST No hydrocephalus, acute intracranial hemorrhage, or mass effect. THIS DOCUMENT HAS BEEN ELECTRONICALLY SI GNED BY ANDREW CHRIS MD FOR ANY QUESTIONS OR CONCERNS REGARDING THIS REPORT PLEASE CALL [facility] AT [phone] Narrative [facility] - 12/30/2021 21:13 EST [...] REGARDING THIS REPORT PLEASE CALL [facility] AT [phone] Performing Organization Address City/State/ZIP Code Phon e Number [facility] EKG 12-LEAD (12/30/2021 19:42 EST) Specimen Narrative [facility] - 8:43 EST ? [facility] ? Test Date: ?2021-12-30 Pat Name: ? HA SORIA ?Department: ? Room: ? C03 Gender: ? Male ? Die Cast Patternmaker: ?? LR : ?1965 ? Requested By: HEDY Eisenberg Order Number: [id number] ? Abdi FERNANDEZ: ?? IDALIA SANTOS MD ? Measurements Intervals ?Welcome ? Rate: ? 61 ? P: ?78 DC: ? 142 ?QRS: ?61 QRSD: ? 90 [...] Procedure Note Idalia Santos MD - 12/31/2021 [facility] Test Date: 2021-12-30 Pat Name: HA SORIA Department: Room: C03 Gender: Male Die Cast Patternmaker: FABIANO : 1965 Requested By: HEDY Eisenberg Order Number: [id number] Reading MD: Shabbir SANTOS MD Measurements Intervals Welcome Rate: 61 P: 78 DC: 142 QRS: 61 QRSD: 90 T: 62 QT: 464 QTc: 467 Interpretive Statements Normal sinus rhythm with sinus arrhythmi a Possible Left atrial enlargement No previous ECG available for comparison I reviewed the tracing and have either a greed or edited the findings in this report. Electronically Signed On 2 8:43:18 EST by IDALIA SANTOS MD. Performing Organization Address City/State/ZIP Code Phon e Number [facility] (ABNORMAL) C REACTIVE PROTEIN (12/30/2021 19:38 EST) Pathologist Sig nature C-Reactive Protein 10.0 (H) <10.0 mg/L [facility] Specimen Blood - Venous blood (substance) Performing Organization Address City/State/ZIP Code Phon e Number [facility] [address] [place] [address] (ABNORMAL) COMPLETE BLOOD COUNT AND DIFFERENTIAL (12/30/2021 19:38 EST) Pathologist Sig [facility] WBC 7.17 4.00 - 10.40 [facility] RBC 5.28 4.36 - 5.78 [facility] Hemoglobin 15.0 13.8 - 17.3 [facility] gm/dL [facility] HCT 43.4 39.5 - 50.2 % [facility] MCV 82 81 - [address] [facility] MCH 28.4 27.6 - 33.[address] [facility] MCHC 34.6 32.8 - 36.4 [facility] gm/dL [facility] RDW-CV 13.7 <14.2 % [facility] RDW-SD 41.0 <46.[address] [facility] PLT 372 141 - 377 K/cmm [facility] MPV 8.7 (L) 9.5 - 12.[address] [facility] Neutrophils 68.0 % [facility] Lymphocytes 19.9 % [facility] Monocytes 9.9 % [facility] Eosinophils 1.1 % [facility] Basophils 0.4 % [facility] Immature Grans 0.7 % [facility] Absolute Neutrophils 4.87 2.20 - 8.85 [facility] Absolute Lymphocytes 1.43 1.09 - 3.30 [facility] Absolute Monocytes 0.71 0.10 - 0.80 [facility] Absolute Eosinophils 0.08 0.03 - 0.61 [facility] K/cmm [facility] Absolute Basophils 0.03 0.01 - 0.11 [facility] K/cmm [facility] Absolute Immature 0.05 0.00 - 0.06 [facility] Grans K/cm [facility] Type of Differential: Auto [facility] Specimen Blood - Venous blood (substance) Performing Organization Address [facility]/ZIP Code Phon e Number [facility] [address] [place] [address] (ABNORMAL) COMPREHENSIVE METABOLIC PANEL (CMP) (12/30/2021 19:38 EST) Pathologist [facility] Sodium 139 136 - 145 [facility] mmol/L [facility] Potassium 3.6 3.5 - 5.0 [facility] mmol/L [facility] Chloride 98 96 - 110 mmol/L [facility] CO2 Total 32 22 - 32 mmol/L [facility] Glucose 126 (H) 70 - 100 mg/dL [facility] BUN 14 10 - 26 mg/dL [facility] Creatinine 0.82 0.66 - 1.25 [facility] mg/dL [facility] eGFR 100 >60 [facility] mL/min/1.73m2 [facility] Total Protein 7.9 6.3 - 8.2 g/dL [facility] Albumin 4.3 3.4 - 4.9 g/dL [facility] Alkaline Phosphatase 102 38 - 126 U/L [facility] AST 25 15 - 46 U/L [facility] ALT 19 <50 U/L [facility] Bilirubin, Total 0.5 <1.4 mg/dL [facility] Calcium 9.5 8.5 - 10.5 [facility] mg/dL [facility] Albumin/Globulin Ratio 1.2 1.0 - 2.5 [facility] Anion Gap 9 5 - 14 [facility] Specimen Blood - Venous blood (substance) Performing Organization Address City/[facility]/ZIP Code Phon e Number [facility] [address] [place] [phone] documented in this encounter Visit Diagnoses Diagnosis Acute nonintractable headache, unspecifi ed headache type - Primary documented in this encounter Administered Medications Inactive Administered Medications - up to 3 most recent administrations Medication Order MAR Action Action Date Dose Rate Site acetaminophen (OFIRMEV) IV Given 12/30/2021 20:25 EST 1,000 mg solution 1,000 mg 1,000 mg, intravenous, NOW X1, 1 dose, On Thu12/30/21 at 2030, STAT ketOROLAC (TORADOL) injection 15 mg 15 mg, intravenous, NOW X1, 1 dose, On Thu12/30/21 at 2 315, STAT metoclopramide (REGLAN) injection 10 mg Given 12/30/2021 20:25 EST 10 mg 10 mg, intravenous, NOW X1, 1 dose, On Thu12/30/21 at 2030, STAT sodium chloride 0.9 % BOLUS 1,000 mL New Bag 12/30/2021 20:25 EST 1,000 mL 1,000 mL, intravenous, NOW X1, 1 dose, On Thu12/30/21 at 2030, STAT documented in this encounter Active and Recently Administered Medications Times are shown in EST. Scheduled Medication Order 12/28/2021 12/29/2021 12/30/2021 acetaminophen ([facility]) IV solution 1,000 mg (COMPLETED) 2024 (Given - Provider: Jonnie Rosa RN)2049 (Completed - Provider: Jonnie Rosa RN) 1,000 mg, intravenous, NOW X1, 1 dose, On Thu12/30/21 at 2030, ST AT ketOROLAC (TORADOL) injection 15 mg 2310 (Not Given - Provider: Perri Escobedo RN - Reason: Change in condition) 15 mg, intravenous, NOW X1, 1 dose, On Thu12/30/21 at 2315, STAT metoclopramide (REGLAN) injection 10 mg (COMPLETED) 2024 (Given - Provider: Jonnie Rosa RN) 10 mg, intravenous, NOW X1, 1 dose, On Thu12/30/21 at 2030, STAT sodium chloride 0.9 % BOLUS 1,000 mL (COMPLETED) 2024 (New Bag - Provider: Jonnie Rosa RN)2158 (Completed - Provider: Poonam Holland RN) 1,000 mL, intravenous, NOW X1, 1 dose, On Thu12/30/21 at 2030, ST AT documented in this encounter Orders Medications Ordered That Might Not Have Count Last Ord ered Date First Ordered Date Been Administered ketOROLAC (TORADOL) injection 15 mg 1 12/30/2021 Procedures Count Last Ordered Date First Ordered Date ECG REPORT - SCANNED 1 12/31/2021 documented in this encounter Additional Health Concerns Infection Onset Date Last Indicated Resolved Time MRSAComment: Hx of QBZF-Khxo-91/23/2020 08/29/2021 08/29/20 21 C. Stoner 12/31/21 documented as of this encounter Care Teams Negative Assembler Relationship Specialty Start Date End Date Gil-Marcy Santos, PCP - General Family Medicine - Primary 1 11/13/18 CHARGE OPERATOR Care [address] [place] [phone] documented as of this encounter
--- OUTSIDE RECORDS SUMMARY | 2022-03-10 21:41 | XMS_ITS | Encounter Summary ---
:1965 Author Organization [facility] Address [address] [place] [address] Care Team Providers Name Role Phone Marcy Alvarenga CONSERVATION POLICY ANALYST Primary Care Provider Reason for Visit Reason Onset Date Comments Labs Only 02/14/2021 Pt called regarding lab orders that JL was to place Encounter Details Date Type Department Care Team Description 02/14/2021 Telephone [facility] - Lilian Rushing, Lab s Only (Pt called [facility] Infectious Dise ase regarding lab orders [address] that JL was to place) [place] [address] [facility] [place] [place] [address] Social History Tobacco Use Types [...] been in contact with No / Unsure 01/17/2021 13:04 EDT someone who was confirmed or suspected to [...] this encounter Miscellaneous Notes Telephone Encounter - Marychuy Lynch - 02/14/2021 1650 EDT AR got back to me regarding lab orders just now. I called patient, no answer, had to leave a message. Hopefully he will get the message before he leaves the hospital. Telephone Encounter - Aissatou Iraheta RN - 02/14/2021 1641 EDT Received lab orders from Dr. Rushing via cortext and ordered in Epic. elephone Encounter - Marychuy Lynch - 02/14/2021 1544 EDT Patient is over at the hospital having a scan done. He was told there would be lab orders in for today as well. He was told there are no orders by reg. JL had left for the day by time he called. I toldhim orders will be placed just not today. He agreed. Advise is lab orders. documented in this encounter Plan of Treatment Upcoming Encounters Date Type Specialty Care Team Description 04/14/2022 Office Visit Infectious Disease Lilian Rushing MD [address] [place] [address], [address] [place] [address] (Wo rk) documented as of this encounter Visit Diagnoses Diagnosis Coccidioidomycosis - Primary Coccidioidomycosis, unspecified documented in this encounter Care Teams Bun Panner Relationship Specialty Start Date End Date Marcy Alvarenga, PCP - General Family Medicine - Primary 1 11/13/18 CONSERVATION POLICY ANALYST Care [address] [place] [phone] documented as of this encounter
--- OUTSIDE RECORDS SUMMARY | 2022-03-10 21:41 | XMS_ITS | Encounter Summary ---
:1965 Author Organization [facility] Address [address] [place] [address] Care Team Providers Name Role Phone Marcy Alvarenga PROJECT HIRE Primary Care Provider [phone] Reason for Visit Reason Comments Other Encounter Details Date Type Department Care Team Description 04/23/2021 Refill [facility] Geoff Alvarenga, Other Infectious Disease PROJECT HIRE [address] [place] [address] [address] [place] [phone] (Wo rk) Social History Tobacco Use Types [...] Sig Dispensed Refills Start Date End Date lisinopriL (PRINIVIL) 10 mg TAKE 1 TABLET BY 90 Tablet 3 tablet MOUTH EVERY DAY documented in this encounter Plan of Treatment Upcoming Encounters Date Type Specialty Care Team Description 04/14/2022 Office Visit Infectious Disease Lilian Rushing MD [address] [place] [address] [address] [place] [address] (Wo rk) documented as of this encounter Visit Diagnoses Not on filedocumented in this encounter Discontinued Medications Medication Sig Discontinue Reason Start Date End Date lisinopriL (PRINIVIL) 10 Take 1 Tab by 04/18/2020 mg tabletIndications: mouth daily. hypertension documented as of this encounter Additional Health Concerns Infection Onset Date Last Indicated Resolved Time MRSAComment: Hx of DRRH-Vfvj-82/23/2020 08/29/2021 08/29/20 21 C. Stoner 12/31/21 documented as of this encounter Care Teams Roustabout Relationship Specialty Start Date End Date Marcy Alvarenga, PCP - General Family Medicine - Primary 1 11/13/18 PROJECT HIRE Care [address] [place] [address] [address] [place] [address] documented as of this encounter
--- OUTSIDE RECORDS SUMMARY | 2022-03-10 21:41 | XMS_ITS | Encounter Summary ---
:1965 Author Organization [facility] Address [address] [place] [address] Care Team Providers Name Role Phone Marcy Alvarenga CLAIM ADMINISTRATOR Primary Care Provider [phone] Reason for Visit Reason Onset Date Comments Orders (Non Pre-visit) 09/26/2021 Encounter Details Date Type Department Care Team Description 09/26/2021 Telephone [facility] - Aissatou Iraheta RN Orders (Non Pre-visit) [facility] [place] Dise [place] [address] [place] [address] [place], [place] [phone] Social History Tobacco Use Types Packs/Day Years [...] Telephone Encounter - Aissatou Iraheta RN - 09/30/2021 1349 EST Lm to have blood work done. elephone Encounter - Aissatou Iraheta RN - 09/26/2021 0832 EST Labs not done. Telephone Encounter - Aissatou Iraheta RN - 09/26/2021 0832 EST ----- Message from Aissatou Iraheta RN sent at 09/18/2021 10:26 EST ----- Posa levels? documented in this encounter Plan of Treatment Upcoming Encounters Date Type Specialty Care Team Description 04/14/2022 Office Visit Infectious Disease Lilian Rushing MD [address] [place] [address] [address] [place], [place] [phone] (Wo rk) documented as of this encounter Visit Diagnoses Not on filedocumented in this encounter Additional Health Concerns Infection Onset Date Last Indicated Resolved Time MRSAComment: Hx of CBGS-Lgvt-96/23/2020 08/29/2021 08/29/20 21 C. Stoner 12/31/21 documented as of this encounter Care Teams Channel Marketing Specialist Relationship Specialty Start Date End Date Gil-Marcy Santos, PCP - General Family Medicine - Primary 1 11/13/18 CLAIM ADMINISTRATOR Care [address] [place] [address] [address] [place] [address] documented as of this encounter
--- OUTSIDE RECORDS SUMMARY | 2022-03-10 21:41 | XMS_ITS | Encounter Summary ---
:1965 Author Organization [facility] Address [address] [place] [address] Care Team Providers Name Role Phone Marcy Alvarenga HOSE COUPLING JOINER Primary Care Provider [phone] Reason for Visit Reason Comments Other Encounter Details Date Type Department Care Team Description 04/30/2021 Refill [facility] Geoff Alvarenga, Other Infectious Disease HOSE COUPLING JOINER [address] [place] [address] [address] [place] [phone] (Wo rk) Social History Tobacco Use [...] 0.4 TAKE 1 CAPSULE BY 90 capsule 3 05/0111/07/2021 mg capsule MOUTH ONCE DAILY documented in this encounter Plan of Treatment Upcoming Encounters Date Type Specialty Care Team Description 04/14/2022 Office Visit Infectious Disease Lilian Rushing MD [address] [place] [address] [address] [place], [place] [phone] (Wo rk) documented as of this encounter Visit Diagnoses Not on filedocumented in this encounter Discontinued Medications Medication Sig Discontinue Reason Start Date End Date tamsulosin (FLOMAX) 0.4 Take 1 Cap by mouth 04/18/2020 05/01/2021 mg capsule daily. documented as of this encounter Additional Health Concerns Infection Onset Date Last Indicated Resolved Time MRSAComment: Hx of IUWP-Tebm-07/23/2020 08/29/2021 08/29/20 21 C. Stoner 12/31/21 documented as of this encounter Care Teams Jig And Fixture Builder Relationship Specialty Start Date End Date Gil-Marcy Santos, PCP - General Family Medicine - Primary 1 11/13/18 HOSE COUPLING JOINER Care [address] [place] [address] [address] [place] [phone] documented as of this encounter
--- OUTSIDE RECORDS SUMMARY | 2022-03-10 21:41 | XMS_ITS | Encounter Summary ---
:1965 Author Organization [facility] Address [address] [place] [address] Care Team Providers Name Role Phone Marcy Alvarenga PIER MASTER Primary Care Provider [phone] Encounter Details Date Type Department Care Team Description 12/03/2020 Travel Social History Tobacco Use Types Packs/Day [...] been in contact with No / Unsure 12/03/2020 11:03 EST someone who was confirmed or suspected [...] Visit Infectious Disease Lilian Rushing MD [address], [address] [place] [address] (Wo rk) documented as of this encounter Visit Diagnoses Not on filedocumented in this encounter Care Teams Lasting Machine Operator Hand Method Relationship Specialty Start Date End Date Gil-Marcy Santos, PCP - General Family Medicine - Primary 1 11/13/18 PIER MASTER Care [address] [facility] [address] [place] [address] documented as of this encounter
--- OUTSIDE RECORDS SUMMARY | 2022-03-10 21:41 | XMS_ITS | Encounter Summary ---
:1965 Author Organization [facility] Address [address] [place] [address] Care Team Providers Name Role Phone Marcy Alvarenga DYE BECK REEL OPERATOR Primary Care Provider [phone] Reason for Visit Reason Onset Date Comments Results 12/05/2020 pos gonorrhea Encounter Details Date Type Department Care Team Description 12/05/2020 Telephone [facility] - Aissatou Iraheta RN Results (pos gonorrhea) [facility] Infectious Dise ase [address] [place] [address] [place], [place] [address] Social History Tobacco Use Types Packs/Day Years [...] Telephone Encounter - Aissatou Iraheta RN - 12/06/2020 1228 EST Pt notified. appt made for 12/07 at 11 for shot elephone Encounter - Aissatou Iraheta RN - 12/05/2020 0931 EST Images from the original note were not included. Lilian Rushing MD Ripley, Amy, RN ?? Gonorrhea positive in pharyngeal swab. ??So he needs a single shot of IM Ceftriaxone 500mg. ??We will need to do a xwuz-uk-beuq 7-14 days after treatment. documented in this encounter Plan of Treatment Upcoming Encounters Date Type Specialty Care Team Description 04/14/2022 Office Visit Infectious Disease Lilian Rushing MD [address] [facility] [address] [place] [address] (Wo rk) documented as of this encounter Visit Diagnoses Not on filedocumented in this encounter Care Teams Supervisor Capacitor Processing Relationship Specialty Start Date End Date Gil-Marcy Santos, PCP - General Family Medicine - Primary 1 11/13/18 DYE BECK REEL OPERATOR Care [address] [place] [phone] documented as of this encounter
--- OUTSIDE RECORDS SUMMARY | 2022-03-10 21:41 | XMS_ITS | Encounter Summary ---
:1965 Author Organization [facility] Address [address] [place] [address] Care Team Providers Name Role Phone Maryc Alvarenga SAND CARRIER Primary Care Provider [phone] Encounter Details Date Type Department Care Team Description 06/02/2021 Results Only Imaging [facility] - Lilian Rushing MD [facility] Radiology Resul ts [address] [facility] [address] [facility], [address] [place] [address] [place], [place] [phone] (Wo rk) Social History Tobacco Use [...] Office Visit Infectious Disease Lilian Rushing MD [address] [place] [address], [address] [place] [address] (Wo rk) documented as of this encounter Procedures Procedure Name Priority Date/Time Associated Diagnosis Comme nts MR KNEE W WO 06/02/2021 10:08 Results for this CONTRAST LEFT EDT procedure are in the results section. documented in this encounter Results MR KNEE W WO CONTRAST LEFT (06/02/2021 10:08 EDT) Specimen Narrative [facility] - 06/02/2021 10:08 EDT ? EXAM: MAGNETIC RESONANCE IMAGING/KNEE LT ??EX. D/ (1410) ? CLINICAL INFORMATION: ? 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 ? COMPARISON: MRI scan of the left knee for 07/15/2021. ? TECHNIQUE: Multiplanar, multisequ ence precontrast and postcontrast ? enhanced MRI scan of the right kn ee was performed. ? FINDINGS: ? There is a persistent moderate to large size knee joint effusion with ? diffuse synovitis, not significan tly changed compared to the previous ? exam. Marginal erosions and multi focal bone marrow edema signal and ? enhancement within the distal fem ur and proximal tibia are not ? substantially changed compared to the previous exam. No bone or soft ? tissue abscess is identified. A s mall Wayne's cyst with synovitis is ? present. ? 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 of the medial and lateral menisci are unchanged. Diffuse mucoid ? change throughout the anterior cr uciate ligament is stable. ? The medial collateral ligament, P CL, lateral collateral ligament, ? iliotibial band, biceps femoris t endon, popliteus tendon, extensor ? mechanism and patella retinacula are intact. ? IMPRESSION: ? 1. 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 not significantly changed compare d to the previous exam. ? 2. Medial and lateral meniscus de generation and tears, unchanged. ? 3. Mucoid change of the anterior cruciate ligament, unchanged. ? REPORT SIGNED IN OTHER VENDOR SYSTEM 06/02/2021 ?Reported B y: Artur Coley MD ? CC: ? Transcribed Date/Time: 06/02/2021 (1008) ? Telephone Triage Nurse: ? Printed Date/Time: 06/02/2021 (10 08) ? PAGE 1 ? Nelly d Report ? Procedure Note Artur Coley MD - 06/02/2021 EXAM: MAGNETIC RESONANCE IMAGING/KNEE L T EX. 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 COMPARISON: MRI scan of the left knee f or 07/15/2021. TECHNIQUE: Multiplanar, multisequence p recontrast and postcontrast enhanced MRI scan of the right knee was performed. FINDINGS: There is a persistent moderate to large size knee joint effusion with diffuse synovitis, not significantly ch anged compared to the previous exam. Marginal erosions and multifocal bone marrow edema signal and enhancement within the distal femur and proximal tibia are not substantially changed compared to the p revious exam. No bone or soft tissue abscess is identified. A small B yamila's cyst with synovitis is present. Osteoarthritis of the tibiofemoral join ts with tears and degeneration of the medial and lateral menisci are u nchanged. Diffuse mucoid change throughout the anterior cruciate ligament is stable. The medial collateral ligament, PCL, la teral collateral ligament, iliotibial band, biceps femoris tendon, popliteus tendon, extensor mechanism and patella retinacula are in tact. IMPRESSION: 1. Persistent infectious/inflammatory a rthritis of the right knee, not significantly changed compared to t he previous exam. 2. Medial and lateral meniscus degenera tion and tears, unchanged. 3. Mucoid change of the anterior crucia te ligament, unchanged. REPORT SIGNED IN OTHER VENDOR SYSTEM 06/02/2021 Reported By: Artur Coley MD CC: Transcribed Date/Time: 06/02/2021 (1008 ) Telephone Triage Nurse: Printed Date/Time: 06/02/2021 (1005) PAGE 1 Signed Report Performing Organization Address City/State/ZIP Code Phon e Number [facility] documented in this encounter Visit Diagnoses Not on filedocumented in this encounter Additional Health Concerns Infection Onset Date Last Indicated Resolved Time MRSAComment: Hx of [id number]-Fbhf-50/23/2020 08/29/2021 08/29/20 21 C. Stoner 12/31/21 documented as of this encounter Care Teams 7Th Grade Social Studies Teacher Relationship Specialty Start Date End Date Gil-Marcy Santos, PCP - General Family Medicine - Primary 1 11/13/18 SAND CARRIER Care [address] [place] [phone] documented as of this encounter
--- OUTSIDE RECORDS SUMMARY | 2022-03-10 21:41 | XMS_ITS | Encounter Summary ---
:1965 Author Organization [facility] Address [address] [place] [address] Care Team Providers Name Role Phone Marcy Alvarenga AUTOMOTIVE MECHANICAL ENGINEER Primary Care Provider [phone] Encounter Details Date Type Department Care Team Description 12/24/2020 Lab Requisition [facility] Outr Resulting Lab, Pathology & Laboratory Provider [facility] [address] [place] [id number] Social History Tobacco Use Types Packs/Day Years [...] been in contact with No / Unsure 12/20/2020 13:13 EST someone who was confirmed or suspected [...] Office Visit Infectious Disease Lilian Rushing MD [address] [place] [address], [address] [place] [address] (Wo rk) documented as of this encounter Procedures Procedure Name Priority Date/Time Associated Diagnosis Comme nts CULTURE REFERRED Today 12/24/2020 11:05 Results for this FOR ID, FUNGUS EST procedure are in the results section. FUNGUS Today 12/24/2020 11:05 Results for this CULTURE/SMEAR EST procedure are in the results section. documented in this encounter Results (ABNORMAL) CULTURE REFERRED FOR ID, FUNGUS (12/24/2020 11:05 EST) Culture Referred SEE NOTE (A) [facility] for ID, Fungus Comment: LABORATORIES SOURCE: KNEE, Knee fluid CULTURE REFERRED FOR ID, FUNGUS ?FINAL ??COCCIDIOIDES POSADASII/IMMITIS ?? Critical Result. Test Performed by: [facility] - [address] [address] Financial Sales Manager: Pritesh Mcgee M.D. Ph.D.; CLIA# [id number] Specimen Organism Performing Organization Address City/[facility] Code Phon e Number [facility] [address] [place] [phone] (ABNORMAL) FUNGUS CULTURE/SMEAR (12/24/2020 11:05 EST) Pathologist Sig nature Organism ID Few Coccidiodes [facility] Immitis/Posadasii LABORATORY SERVICES (A)Comment: Assayed by [facility], [place], [place] Fungal Smear No Fungi Seen [facility] Specimen Fluid - Entire knee region (body structu re) Performing Organization Address City/[facility]/ZIP Code Phon e Number [facility] [address] [place] [address] SERVICES documented in this encounter Visit Diagnoses Not on filedocumented in this encounter Additional Health Concerns Infection Onset Date Last Indicated Resolved Time MRSAComment: Hx of YOPH-Efly-61/23/2020 08/29/202108/29/20 21 Jonh Payne 12/31/21 documented as of this encounter Care Teams Screw Driver Operator Relationship Specialty Start Date End Date Gil-Marcy Santos, PCP - General Family Medicine - Primary 1 11/13/18 AUTOMOTIVE MECHANICAL ENGINEER Care [address] [place] [phone] documented as of this encounter
--- OUTSIDE RECORDS SUMMARY | 2022-03-10 21:41 | XMS_ITS | Encounter Summary ---
:1965 Author Organization [facility] Address [address] [place] [address] Care Team Providers Name Role Phone Marcy Alvarenga VISION IMPAIRED TEACHER Primary Care Provider Reason for Referral Radiology Services (Routine) - Specialty Report Received Specialty Diagnoses / Procedures Referred By Contact Refer red To Contact Radiology Diagnoses Coccidioidomycosis Lilian Rushing MD Procedures MR LUMBAR SPINE W WO CONTRAST [address] [facility], [address] [place] [address] Referral ID Status Reason Start Date Expiration Date Visits V isits Requested Authorized [id number] Specialty 01/17/2021 1 1 Report Received adiology Services (Routine) - Specialty Report Received Specialty Diagnoses / Procedures Referred By Contact Refer red To Contact Radiology Diagnoses Coccidioidomycosis Lilian Rushing MD Procedures MR HEAD W WO CONTRAST [address] [facility], [address] [place] [address] Referral ID Status Reason Start Date Expiration Date Visits V isits Requested Authorized [id number] Specialty 01/17/2021 1 1 Report Received Reason for Visit Reason Comments Follow-up Knee culture Encounter Details Date Type Department Care Team Description 01/17/2021 Office Visit [facility] Leyse, Lilian Coccidio idomycosis (Primary Dx); - [facility] Zari Ruiz MD Arthritis of left knee; Disease [address] [facility] Asymptomatic HIV infection ([facility]) [address], [address] [place] [address] [place] [phone] Social History Tobacco Use Types Packs/Day [...] Sign Reading Time Taken Comments Blood Pressure 120/80 01/17/2021 1311 EDT Pulse 92 01/17/2021 1311 EDT Temperature 36.4 ??C (97.6 ??F) 01/17/2021 1311 EDT Respiratory Rate 20 01/17/2021 1311 EDT Oxygen Saturation - - Inhaled Oxygen Concentration - - Weight 60.1 kg (132 lb 6.4 oz) 01/17/2021 1311 EDT Height - - Body Mass Index 21.37 06/01/2020 1117 EDT documented in this encounter Functional Status [...] Sig Dispensed Refills Start Date End Date itraconazole (SPORANOX) Take 2 Caps by 360 Cap 3 01/18/20 21 09/03/2021 100 mg capsule mouth 2 times daily for 360 days. documented in this encounter Progress Notes Gladys Bolton MA - 01/17/2021 1300 EDT Patient properly identified by name and Blood drawn via butterfly needle from R Antecubital per protocol, DSD applied, tiger tube(s) sent to lab per order. Patients response tolerated well. Lilian Merino MD - 01/17/2021 1300 EDT INFECTIOUS DISEASE OUTPATIENT FOLLOW UP VISIT Patient name: Ha Soria Today's date: 01/17/21 11:29 HPI: Ha Soria is a 55 y.o. who is following up for Coccidioidomycosis. I follow him regularly for HIV - see my last note from 12/03/20 for updates and further history. As far as his history ofCocci, he thinks he had it somewhere around 2007. He had gone into the hospital for a Wayne's cyst removal but was found to have an infection of the L knee with coccidioidomycosis. He was on antifungaltherapy but had to stop it at some point (?around 2009) because [place] wasn't able to take the medication with him. When he came back in 2012 he had 3 polyps removedbecause it came back. After that, he just didn't get back on the medication. Things were pretty stable for him for quite awhile after that, despite being off antifungals. He was diagnosed with HIV [id number], but his inez CD4 is unknown. He has been well-controlled at least since 10/2015 with undetectable viral loads and CD4 counts in the 389-728 range. See other history review below. Records review: - 2015 ([place]) - no mention of Cocci in PCP notes - 2017 ([place]) - remote h/o Cocci and had swelling in R knee - 10/04/18 ([place]) - PCP visit, had Wayne's cyst of L knee, no pain. - Had been referred to Ortho 01/19/18 for h/o Cocci in that knee. Unclear if he was seen at Ortho. - My initial consult 04/29/19 - he was worried the Cocci was back, was having night sweats. - 05/30/19 did [id number] (negative) and referred to Ortho for knee tap with fungal stain/culture - F/u 09/01/19 - He reported that he was unable to get to Ortho appointment due to family issues - Epic change-over at [facility] 08/2019 - No-showed to Ortho appointment 12/01/19 - Ortho acute visit 12/05/19 with L knee pain related to recent injury, heard a pop. Had full ROM with only a mild effusion. No concern for recurrent Cocci, likely just arthritis as a result of the previous damage done. Discussed steroid injection but he declined at that time. - F/U with me 12/05/19 - no evidence of persistent infection such as redness, heat of the knee. And this was so long after the initial infection that it was unlikely to be persistent infection. Cocci known to cause OA down the road. Ok for steroid injection. - 03/05/20 - Got a second opinion on the knee. Said he needs a TKA because the meniscus is gone. Didn't want a steroid injection. - 06/01/20 - got a steroid injection by Ortho here at [facility] - PCP follow up 08/17/20, lump on L scalp. I+D, bloody drainage, came back + MRSA, Doxy prescribed - F/U with me 12/03/20 - no mention of the knee I received a call from Dr. Laura at [facility] on 01/09/21. He had done a tap of the patient's knee in preparation for TKA. The tap was done on 12/24/20 and he had just been notified that the sample was growing mold. The isolate was sent to [facility] and onto [facility] for identification. Verbal report of coccidioidomycosis but no mention of this in the chart. He aspirated 21 mL sim,hazy fluid. Labs as below. ?? Today, he says he's doing ok. He's worried that the infection has something to do with the gonorrheahe was treated for recently. We discussed the mold and his h/o Cocci again. He is having quite a bitof pain in the knee and cannot straighten it all the way. He is able to go on walks, though it hurtsafterward. He also says he's been having increased low back pain that's new for him. And he has beengetting some neck stiffness and headaches. Not constant - comes and goes. No fevers. He has been having night sweats. No weight loss that he knows of. No GI symptoms. Review of Systems: 10-point review of systems is negative except as noted in the HPI. Medical/Surgical/Social/Family History reviewed - see appropriate section of EMR. Physical Exam Vital Signs: BP 120/80 Pulse 92 Temp 36.4 ??C (97.6 ??F) Resp 20 Wt 60.1 kg (132 lb 6.4 oz) BMI 21.37 kg/m?? General: NAD Skin: no rash or obvious lesions HEENT: AT/NC. Normal dentition. Neck: supple CV: RRR, no MRG, S1 + S2 normal Pulm: CTAB, no wheezes, rales, or rhonchi Abd: soft, non-tender, non-distended Ext: Warm, well-perfused, no LE edema MSK: L knee significantly larger than R with warmth but no erythema. Tenderness over L spine. Neuro: Non-focal Psych: Appropriate Medications: Genvoya No antifungals Labs: 12/24/20 [place]: ESR 20 CRP 7.2 (mg/L) WBC count 7.65 ?? Micro: [place]: L knee fluid - 10,840 WBCs (36% PMNs, 13% Lymphs, 51% Monocytes) L knee fluid culture: 12/24/20 - no growth (bacterial culture) - GS with many WBCs, no bacteria Fungal culture - mold, sent to [facility] for ID Radiology: Has MRI of the L knee scheduled for 02/01/21 Assessment and Plan: 55 y/o M with h/o HIV and remote h/o coccidioidomycosis who is here to follow up on the mold that isgrowing in the L knee tap. Most likely this is the cocci again. Upon review of the literature, it seems that his case is somewhat unusual due to how long after initial infection it is. Per the IDSA Coccidioidomycosis Treatment Guidelines (2016), Of the estimated 150,000 infections that occur annually, 50,000 likely produce illness warranting medical attention, 10,000- 20,000 of these are diagnosed and reported, 4408-1690 produce pulmonary sequelae, 600-1000 spread hematogenously from the lungs to other parts of the body (disseminated infection) and 160 result in . From King's Principles and Practice of Infectious Diseases, ...spread beyond the lungs in approximately 0.5% of all infections in the general population.... Complications of the initial infection, such as chronic pneumonia or extrathoracic dissemination, may take longer to become apparent but nearly always emerge within 2 years after exposure. Knees are often involved as well as the vertebral column. Coccidioidal meningitisis a serious complication of disseminated infection. Given his new lumbar back pain and headaches, Iwould like to image his L-spine and head as well as the knee. HIV is a known risk factor for dissemination, but usually at low CD4 levels. His levels have been fine for many years. Per several sources, in general, both Fluconazole and Itraconazole demonstrate similar efficacy whentreated coccidioidomycosis. However, when evaluating treatment of skeletal disease, itraconazole resulted in higher response rates than fluconazole. Surgical debridement may be important as well, depending on the level of tissue destruction. Antifungal treatment arrests further proliferation but does not kill the organism, so debridement may be needed to stop further tissue destruction. We will follow up on the MRI of the knee and coordinate with Dr. Laura regarding needs for surgery going forward. Even if he does not require debridement, he will eventually need a TKA. I discussed with the patient that he will very likely be on chronic antifungals. Once we get the MRI results back and confirmation that the mold is, in fact, Cocci, I will touch base with the [facility] ([email or web address]) since this is not a disease we commonly see in [place]. Because it may take another 4-6 weeks toget an ID on the mold, I would like to go ahead and start Itraconazole in the meantime. Recommended dose is 200mg BID. He will need an itraconazole level in 2 weeks. We discussed possible interactions with his tamsulosin - he will monitor for dizziness or light-headedness that could signal low BP. It can also interact with his HIV med, but it would increase the concentration, not decrease it. So we will continue to monitor safety labs for that. Other Orders Placed This Visit Procedures ??? MR HEAD W WO CONTRAST ??? MR LUMBAR SPINE W WO CONTRAST ??? Miscellaneous Test, [place] Orders Placed This Visit and Additions to the Medication List Medications ??? itraconazole (SPORANOX) 100 mg capsule Sig: Take 2 Caps by mouth 2 times daily for 360 days. Dispense: 360 Cap Refill: 3 It has been a pleasure seeing Ha Soria in clinic today. I spent a total of 75 minutes on the date of this encounter meeting with the patient and reviewing documentation/coordinating care as described in the above note. No procedures were performed at the time of the visit. Lilian Rushing MD, MPH [facility] Infectious Disease Office: [phone] Cc: Dr. Laura at [facility] Aissatou fiore RN - 01/17/2021 1300 EDT Pt is eligible for covid vaccine. documented in this encounter Plan of Treatment Upcoming Encounters Date Type Specialty Care Team Description 04/14/2022 Office Visit Infectious Disease Lilian Rushing MD [address] [place] [address], [address] [place] [address] (Wo rk) Scheduled Orders Name Type Priority Associated Diagnoses Order S chedule MR HEAD W WO CONTRAST Imaging Routine Coccidioidomycosis Ordered: 01/17/2021 MR LUMBAR SPINE W WO Imaging Routine Coccidioidomycosis O rdered: 01/17/2021 CONTRAST documented as of this encounter Procedures Procedure Name Priority Date/Time Associated Diagnosis Comme nts MISCELLANEOUS TEST, Routine 01/17/2021 13:40 Coccidioidomycosi s Results for this BENTON EDT procedure are i n the results section. documented in this encounter Results MISCELLANEOUS TEST, BENTON (01/17/2021 13:40 EDT) Pathologist [facility] MISCELLANEOUS TEST - SEE BELOW () [facility] Comment: [facility] Test ? Result ?? Flag ??Unit ??RefValue ------ Coccidioides Ab Screen w/Reflex, S ??Coccidioides Ab Screen, S ?Reactive ? Negative Confirmatory testing by complement fixation and immunodiffusion has been ordered. Coccidioides Ab, Comp F,S ? 1:64 ?Negative Complement fixation (CompF) results suggest resolving or current infection. ??Increasing titers in serially col lected samples (collected 2-3 weeks apart) are diagnostic for active disease. ??Results should be interpretated in c ontext of clinical presentation and other laboratory findings (e.g., fungal culture). Coccidioides,IgG,ImmDiff,S ?Positive ?Negative Coccidioides,IgM,ImmDiff,S ?Negative ?Negative Immunodiffusion (ImmDiff) results suggest resolving or current infection. ??Results should be interpreted in the context of clinical presentation and other laboratory findings (e.g., fungal culture). ADDITIONAL INFORMATION ------ This test has been modified from the account adjuster's instructions. Its performance characteristics were determined by [facility] in a manner consistent with CLIA requirements. This test has not been cleared or approved by the U.S. Food and Drug Administration. Test Performed by: [facility] - [address] [address] Dairy Clerk: Pritesh Mcgee M.D. Ph.D.; CLIA# [id number] Specimen Blood - Venous blood (substance) Performing Organization Address City/State/ZIP Code Phon e Number [facility] [address] [place] [address] documented in this encounter Visit Diagnoses Diagnosis Coccidioidomycosis - Primary Coccidioidomycosis, unspecified Arthritis of left knee Unspecified arthropathy, lower leg Asymptomatic HIV infection (HCC) Asymptomatic human immunodeficiency viru s (HIV) infection status documented in this encounter Care Teams Heat Engineering Teacher Relationship Specialty Start Date End Date Marcy Alvarenga, PCP - General Family Medicine - Primary 1 11/13/18 VISION IMPAIRED TEACHER Care [address] [place] [phone] documented as of this encounter
--- OUTSIDE RECORDS SUMMARY | 2022-03-10 21:41 | XMS_ITS | Encounter Summary ---
:1965 Author Organization [facility] Address [address] [place] [address] Care Team Providers Name Role Phone Marcy Alvarenga TICKET SORTER Primary Care Provider [phone] Encounter Details Date Type Department Care Team Description 12/07/2020 Travel Social History Tobacco Use Types Packs/Day [...] Visit Infectious Disease Lilian Rushing MD [address] [facility], [address] [place] [address] (Wo rk) documented as of this encounter Visit Diagnoses Not on filedocumented in this encounter Care Teams Senior Front End Developer Relationship Specialty Start Date End Date Gil-Marcy Santos, PCP - General Family Medicine - Primary 1 11/13/18 TICKET SORTER Care [address] [facility] [address] [place] [address] documented as of this encounter
--- OUTSIDE RECORDS SUMMARY | 2022-03-10 21:41 | XMS_ITS | Encounter Summary ---
:1965 Author Organization [facility] Address [address] [place] [address] Care Team Providers Name Role Phone Marcy Alvarenga DIGITAL ADVISOR Primary Care Provider [phone] Reason for Referral Radiology Services (Routine/Next Available) - Authorization Not Required Specialty Diagnoses / Procedures Referred By Contact Refer red To Contact Radiology Diagnoses Coccidioidomycosis Arthritis of left knee Lilian Rushing MD [facility] [place] MR KNEE W WO CONTRAST LEFT [address] 130 [facility], [address] [phone] Referral ID Status Reason Start Expiration Visits Visits Date Date Requested Authorized [id number] Authorization Not 09/03/2021 1 1 Required Reason for Visit Radiology Services (Routine/Next Available) - Authorization Not Required Specialty Diagnoses / Procedures Referred By Contact Refer red To Contact Radiology Diagnoses Coccidioidomycosis Arthritis of left knee Lilian Rushing MD [facility] Procedures MR KNEE W WO CONTRAST LEFT [address] 130 [facility], [address] [place], [place] [address] [place] [phone] Referral ID Status Reason Start Expiration Visits Visits Date Date Requested Authorized [id number] Authorization Not 09/03/2021 1 1 Required Encounter Details Date Type Department Care Team Description 11/27/2021 Hospital Encounter [facility] - C occidioidomycosis; [facility] [place] Arthritis of left knee [address] [place] [address] Social History Tobacco Use Types Packs/Day Years [...] making decisions? documented as of this encounter Medications at Time of Discharge [...] nael applied 0 % swab topically PRN lisinopriL (PRINIVIL) 10 TAKE 1 TABLET BY 90 Tablet 3 04/24 mg tablet MOUTH EVERY DAY obviocv-guz-hgydt-tenof Take 1 Tablet by 90 Tablet 3 202012/10/2021 ALAFEN (GENVOYA) mouth daily for 90 [phone] mg days. tabletIndications: HIV infection posaconazole (NOXAFIL) Take 3 Tablets by 270 Tablet 1 202112/11/2021 100 mg delayed release mouth every 24 tablet hours. BEST TAKEN WITH A FATTY MEAL TAMSulosin (FLOMAX) 0.4 TAKE 1 CAPSULE BY 90 capsule 0 11/0702/07/2022 mg capsule MOUTH ONCE DAILY documented as of this encounter Discharge Disposition Disposition Code Departure Means Destination Home or Self Care documented in this encounter Plan of Treatment Upcoming Encounters Date Type Specialty Care Team Description 04/14/2022 Office Visit Infectious Disease Lilian Rushing MD [address] [place] [address], [address] [place] [address] (Wo rk) documented as of this encounter Procedures Procedure Name Priority Date/Time Associated Diagnosis Comme nts MR KNEE W WO Routine 11/27/2021 19:34 Coccidioidomyco sis Results for this CONTRAST LEFT EST Arthritis of left procedure are in knee the results section. 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 Deficiency of the medial and lateral men isci which may be degenerative or could be related to the infectious process, also stable THIS DOCUMENT HAS BEEN ELECTRONICALLY SI GNED BY JEAN BELLO MD FOR ANY QUESTIONS OR CONCERNS REGARDING THIS REPORT PLEASE CALL [facility] AT [phone] Narrative [facility] - 11/27/2021 20:08 EST PROCEDURE INFORMATION: Exam: MR Left Lower Extremity Joint With out and With Contrast, Knee Exam date and time: 11/05/2021 8:15 PM Age: 56 years old Clinical indication: Other: Knee coccidi oidomycosis infection, following on therapy TECHNIQUE: Imaging protocol: MR of the Left lower e xtremity joint without and with contrast. Exam focused on the k nee. Contrast material: DOTAREM; Contrast vol ume: 12 ml; Contrast route: INTRAVENOUS (IV); ?? COMPARISON: MRI KNEE LT WO/W CONTRAST 05/31/2021 1:17 PM FINDINGS: Moderate unchanged in size knee joint ef fusion with synovial proliferation in the medial and lateral gutters. ??Small popliteal cyst extends through the semim embranosus bursa, also similar to the prior exam. Overall normal osseous alignment. ??Debi inal erosions in the medial and lateral compartment periphera lly, with similar pattern compared to the prior exam. ??Di ffuse marrow replacement in the posterosuperior femoral condyles and diffusely in the proximal tibia, with posterior tibial pl ateau erosive changes appearing similar over the interim. ??Ma rrow enhancement within the proximal tibia and posterosuperior m edial and lateral femoral condyles is also very similar. ? ?Diffuse chondral thinning in the medial and lateral luis rtments is demonstrated. Patella demonstrates no abnormal enhanc ement. ??No progression of osseous disease. Medial collateral ligament, IT band, fib ular collateral ligament and biceps femoris tendon are grossly in tact. ??PCL and ACL show no change in appearance with thinning of the ACL but no evidence of detachment. ??Deficiency of both medi al and lateral menisci is present and unchanged over the interim. ??Quadriceps tendon and patellar ligament are intact. ??Mild thi nning of the patellofemoral and trochlear cartilage s urfaces. Procedure Note Jean Bello MD - 11/27/2021 PROCEDURE INFORMATION: Exam: MR Left Lower Extremity Joint With out and With Contrast, Knee Exam date and time: 11/05/2021 8:15 PM Age: 56 years old Clinical indication: Other: Knee coccidi oidomycosis infection, following on therapy TECHNIQUE: Imaging protocol: MR of the Left lower e xtremity joint without and with contrast. Exam focused on the k nee. Contrast material: DOTAREM; Contrast vol ume: 12 ml; Contrast route: INTRAVENOUS (IV); COMPARISON: MRI KNEE LT WO/W CONTRAST 05/31/2021 1:17 PM FINDINGS: Moderate unchanged in size knee joint ef fusion with synovial proliferation in the medial and lateral gutters. Small popliteal cyst extends through the semim embranosus bursa, also similar to the prior exam. Overall normal osseous alignment. Margin al erosions in the medial and lateral compartment periphera lly, with similar pattern compared to the prior exam. Diff use marrow replacement in the posterosuperior femoral condyles and diffusely in the proximal tibia, with posterior tibial pl ateau erosive changes appearing similar over the interim. Jaime ow enhancement within the proximal tibia and posterosuperior m edial and lateral femoral condyles is also very similar. D iffuse chondral thinning in the medial and lateral luis rtments is demonstrated. Patella demonstrates no abnormal enhanc ement. No progression of osseous disease. Medial collateral ligament, IT band, fib ular collateral ligament and biceps femoris tendon are grossly in tact. PCL and ACL show no change in appearance with thinning of the ACL but no evidence of detachment. Deficiency of both medial and lateral menisci is present and unchanged over the interim. Quadriceps tendon and patellar ligament are intact. Mild thinn ing of the patellofemoral and trochlear cartilage s urfaces. 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 Deficiency of the medial and lateral men isci which may be degenerative or could be related to the infectious process, also stable THIS DOCUMENT HAS BEEN ELECTRONICALLY SI GNED BY JEAN BELLO MD FOR ANY QUESTIONS OR CONCERNS REGARDING THIS REPORT PLEASE CALL [facility] AT [phone] Performing Organization Address City/State/ZIP Code Phon e Number [facility] documented in this encounter Visit Diagnoses Diagnosis Coccidioidomycosis Coccidioidomycosis, unspecified Arthritis of left knee Unspecified arthropathy, lower leg documented in this encounter Administered Medications Inactive Administered Medications - up to 3 most recent administrations Medication Order MAR Action Action Date Dose Rate Site gadoterate meglumine solution 1-30 mL Given 11/27/2021 19:36 EST 12 mL 1-30 mL, intravenous, Once in imaging, 1 dose, Starting on Thu11/27/21 at 1936, Until Thu11/27/21 at 1936, Routine, Imaging Protocol Orders documented in this encounter Orders Medications Ordered That Might Not Have Count Last Ord ered Date First Ordered Date Been Administered gadoterate meglumine solution 1-30 mL 1 11/27/2021 documented in this encounter Additional Health Concerns Infection Onset Date Last Indicated Resolved Time MRSAComment: Hx of GUGN-Hnsf-92/23/2020 08/29/2021 08/29/20 21 C. Stoner 12/31/21 documented as of this encounter Care Teams Chief Operating Officer Relationship Specialty Start Date End Date Gil-Marcy Santos, PCP - General Family Medicine - Primary 1 11/13/18 DIGITAL ADVISOR Care [address] [place] [phone] documented as of this encounter
--- OUTSIDE RECORDS SUMMARY | 2022-03-10 21:41 | XMS_ITS | Encounter Summary ---
:1965 Author Organization [facility] Address [address] [place] [address] Care Team Providers Name Role Phone Marcy Alvarenga BOAT HOIST OPERATOR Primary Care Provider [phone] Encounter Details Date Type Department Care Team Description 02/15/2021 Results Only [facility] Lilian Rushing MD Infectious Disease [address] [facility], [address] [place], [place] [address] [place] [phone] (Wo rk) Social History Tobacco Use [...] documented as of this encounter Miscellaneous Notes Result QuickNote - Aissatou Iraheta RN - 02/15/2021 1850 EDT See TE, reviewing per ID protocol. documented in this encounter Plan of Treatment Upcoming Encounters Date Type Specialty Care Team Description 04/14/2022 Office Visit Infectious Disease Lilian Rushing MD [address] [place] [address], [address] [place] [address] (Wo rk) documented as of this encounter Procedures Procedure Name Priority Date/Time Associated Comments Diagnosis MISCELLANEOUS TEST, Routine 02/15/2021 16:54 Resu lts for this DUNDEE EDT procedure are i n the results section. COMPREHENSIVE Routine 02/15/2021 16:54 Results fo r this METABOLIC PANEL (CMP) EDT proced ure are in the results section. documented in this encounter Results MISCELLANEOUS TEST, DUNDEE (02/15/2021 16:54 EDT) [facility] MISCELLANEOUS TEST - SEE BELOW () [facility] Comment: [facility] Test ?Result ?Flag ??Unit ?RefValue ------ Itraconazole, S ? 2.3 ? mcg/mL ? REFERENCE VALUE ------ >0.5 (localized infection), >1.0 (systemic infection) ??Hydroxyitraconazole ? 1.7 ? mcg/mL ? REFERENCE VALUE ------ No therapeutic range established; activity and serum concentration are similar to parent drug. ADDITIONAL INFORMATION ------ This test was developed and its performance characteri stics determined by [facility] in a manner consistent with CLIA requirements. This test has not been cleared or approv ed by the U.S. Food and Drug Administration. Test Performed by: [facility] [place] [address] Bead Cutter: Pritesh Mcgee M.D. Ph.D.; CLIA# [id number] Specimen Performing Organization Address City/State/ZIP Code Phon e Number [facility] [address] [place] [address] COMPREHENSIVE METABOLIC PANEL (CMP) (02/15/2021 16:54 EDT) ALBUMIN - [facility] 4.0 3.4 - 4.9 [facility] g/dL [facility] ALKALINE 90 38 - 126 U/L [facility] PHOSPHATASE - [facility] BILIRUBIN TOTAL 0.2 0.2 - 1.3 [facility] mg/dL [facility] BUN - [facility] 21 10 - 26 mg/dL [facility] CALCIUM - [facility] 9.6 8.5 - 10.5 [facility] mg/dL [facility] Chloride 99 96 - 110 [facility] mmol/L [facility] CO2 Total 29 21 - 32 mEq/L [facility] CREATININE 1.03 0.66 - 1.25 [facility] mg/dL [facility] eGFR >60 [facility] Comment: [facility] Chronic renal impairment is defined as GFR <60 Multiply result by 1.210 for patients . Anion Gap 12 0 - [address] [facility] GLUCOSE - [facility] 90 70 - 100 [facility] mg/dL [facility] Potassium 4.6 3.5 - 5.0 [facility] mEq/L [facility] Sodium 140 136 - 145 [facility] mEq/L [facility] TOTAL PROTEIN - 7.2 6.2 - 8.2 [facility] gm/dL [facility] SGOT/AST - [facility] 23 17 - 59 U/L [facility] SGPT/ALT - [facility] 20 0 - 50 U/L [facility] Specimen Narrative [facility] - 021 18:50 EDT Does PT Have a Latex Allergy? NO Performing Organization Address City/State/ZIP Code Phon e Number [facility] [address] [place] [address] documented in this encounter Visit Diagnoses Not on filedocumented in this encounter Care Teams Occupational Therapy Manager Relationship Specialty Start Date End Date Gil-Marcy Santos, PCP - General Family Medicine - Primary 1 11/13/18 BOAT HOIST OPERATOR Care [address] [place] [phone] documented as of this encounter
--- OUTSIDE RECORDS SUMMARY | 2022-03-10 21:41 | XMS_ITS | Encounter Summary ---
:1965 Author Organization [facility] Address [address] [place] [address] Care Team Providers Name Role Phone Marcy Alvarenga SOUP MIXER Primary Care Provider [phone] Reason for Visit Reason Onset Date Comments Medications Refill 12/10/2021 Encounter Details Date Type Department Care Team Description 12/10/2021 Telephone [facility] Aissatou Iraheta RN Medications Refill Infectious Disease [address] [place] [address] [place] [address] [phone] Social History Tobacco Use Types Packs/Day Years [...] Sig Dispensed Refills Start Date End Date mecpvst-iiy-raaxz-tenof Take 1 Tablet by 90 Tablet 3 2021 ALAFEN (GENVOYA) mouth daily for 90 [phone] mg days. tabletIndications: HIV infection posaconazole (NOXAFIL) Take 3 Tablets by 270 Tablet 3 202102/07/2022 100 mg delayed release mouth every 24 tablet hours. BEST TAKEN WITH A FATTY MEAL documented in this encounter Miscellaneous Notes Telephone Encounter - Aissatou Iraheta RN - 12/11/2021 1435 EST PA Approved, received fax. elephone Encounter - Aissatou Iraheta RN - 12/11/2021 0856 EST Thank you, this has been faxed to [place] Medicaid. elephone Encounter - Lilian Rushing MD - 12/11/2021 0801 EST I would say that the response to therapy is that his most recent MRI is stable rather than worsening. For dosing, he should be on 300mg daily of the tablets. This is a long-term medication, so we can give him a year's worth. elephone Encounter - Aissatou Iraheta RN - 12/10/2021 1642 EST Posaconazole PA submitted last week. Received fax from [place] Medicaid: Continued approvals are contingent upon response to therapy documented in the clinical notes. Please provide copy of clinical notes that reference response to therapy. AND please clarify dosing, lastpaid claim was #90 tabs for 10 day supply. Original rx directions was- 300mg by mouth twice daily for 1 day. ??Then decrease to 300mg by mouth daily. ??Best if taken with a fatty meal. documented in this encounter Plan of Treatment Upcoming Encounters Date Type Specialty Care Team Description 04/14/2022 Office Visit Infectious Disease Lilian Rushing MD [address] [facility] [address] [place] [phone] (Wo rk) documented as of this encounter Visit Diagnoses Not on filedocumented in this encounter Discontinued Medications Medication Sig Discontinue Reason Start Date End Date rxjmopx-ska-wswtm-tenof Take 1 Tablet by Reorder 06/18/2021 12/10/2021 ALAFEN (GENVOYA) mouth daily for 90 [phone] mg days. tabletIndications: HIV infection posaconazole (NOXAFIL) Take 3 Tablets by Reorder 11/27/2021 12/11/2021 100 mg delayed release mouth every 24 tablet hours. BEST TAKEN WITH A FATTY MEAL documented as of this encounter Additional Health Concerns Infection Onset Date Last Indicated Resolved Time MRSAComment: Hx of HIIW-Mgzn-86/23/2020 08/29/2021 08/29/20 21 C. Stoner 12/31/21 documented as of this encounter Care Teams Field Assembly Supervisor Relationship Specialty Start Date End Date Gil-Marcy Santos, PCP - General Family Medicine - Primary 1 11/13/18 SOUP MIXER Care [address] [place] [address] [address] [place] [phone] documented as of this encounter
--- OUTSIDE RECORDS SUMMARY | 2022-03-10 21:41 | XMS_ITS | Encounter Summary ---
:[address] [facility] Address [address] [place] [address] Care Team Providers Name Role Phone Marcy Alvarenga FINISHING AREA SUPERVISOR Primary Care Provider [phone] Reason for Referral Radiology Services (Routine/Next Available) - Authorization Not Required Specialty Diagnoses / Procedures Referred By Contact Refer red To Contact Radiology Diagnoses Coccidioidomycosis Arthritis of left knee Lilian Rushing MD [facility] Mri Procedures MR KNEE W WO CONTRAST LEFT [address] [facility] [address] [facility], [address] [place] [address] [place] [address] Referral ID Status Reason Start Expiration Visits Visits Date Date Requested Authorized [id number] Authorization Not 09/03/2021 1 1 Required Reason for Visit Reason Comments Follow-up Patient states no questions or concerns Encounter Details Date Type Department Care Team Description 09/03/2021 Office Visit [facility] Lilian Rushing Coccidio idomycosis (Primary Dx); - [facility] Zari Ruiz MD Arthritis of left knee; Disease [address] Asymptomatic HIV infection (HCC); [address] [facility], [address] Medication monitoring encounter; [place] [address] [place] Flu vaccine need [phone] Social History Tobacco Use Types Packs/Day Years [...] on file documented as of this encounter Last Filed Vital Signs Vital Sign Reading Time Taken Comments Blood Pressure 145/78 09/03/2021 1329 EST Pulse 69 09/03/2021 1329 EST Temperature 36.5 ??C (97.7 ??F) 09/03/2021 1329 EST Respiratory Rate 16 09/03/2021 1329 EST Oxygen Saturation 98% 09/03/2021 1329 EST Inhaled Oxygen Concentration - - Weight 61.1 kg (134 lb 9.6 oz) 09/03/2021 1329 EST Height - - Body Mass Index 22.06 06/18/2021 1334 EDT documented in this encounter [...] Refills Start Date End Date posaconazole (NOXAFIL) 300mg by mouth twice 90 Tablet 3 06/202111/27/2021 100 mg delayed release daily for 1 day. tablet Then decrease to 300mg by mouth daily. Best if taken with a fatty meal. documented in this encounter Progress Notes Lilian Rushing MD - 09/03/2021 1300 EST INFECTIOUS DISEASE OUTPATIENT FOLLOW UP VISIT Patient name: Ha Soria Today's date: 09/03/21 HPI: Ha Ruiz Estella is a 56 y.o. who is following up for HIV and Coccidioidomycosis. I last sawhim for HIV follow up on 11/26/20. I saw him again on 01/17/21 for Cocci follow up. See those notes forfull histories. I last saw him on 06/18/21. We had started him on Itraconazole in December 2020. Unfortunately, his knee really wasn't feeling much better. We had done a repeat MRI on 06/02/21 that didn't really look any better, so I followed up with dr. Jacobs from the [facility] in [place]. See 07/03/21 note for details of that conversation. Briefly, he recommended reassessing every 4 months, repeat an MRI/CT at 12 months, and that it wasn't helpful to follow titers. Stable as far as his HIV goes. No changes. HIV diagnosis history: Date of Dx - 11/2014 Risk Factor(s) - MSM Tobi CD4 count - unknown OI History - none known Resistance History - unknown Current Meds and Medication History - Neville, previously on Stribild (2014) [id number] - unknown Hep A - Immune per records Hep B - SAb+ Hep C Ab - neg (06/23/19) RPR - nonreactive (09/01/19) Today, he says the knee is the same - no better. Still getting swollen and red occasionally. Thursday if felt like it was going to burst - worse after being very active. Doing fine on the Itraconazole. Physical Exam Vital Signs: BP (!) 145/78 (BP Cuff Location: Left arm, BP Patient Position: Sitting, BP Cuff Sizes:Adult, regular) Pulse 69 Temp 36.5 ??C (97.7 ??F) (Temporal) Resp 16 Wt 61.1 kg (134 lb 9.6 oz) SpO2 98% BMI 22.06 kg/m?? General: NAD Skin: no rash or obvious lesions HEENT: AT/NC. Pulm: No increased work of breathing Abd: non-distended Psych: Appropriate Medications: Genvoya Itraconazole: 01/17/21-present Labs: Date CD4(%) VL 11/02/15 503(23%) - 05/07/16 - Undetectable 11/19/16 439(24%) - 09/16/17 389(34%) Undetectable 04/28/19 530(30%) - 09/01/19 403(27%) Undetectable 12/05/19 - <20 03/05/20 728(33%) <20 - Undetected 11/26/20 600(34) Undetected 06/18/21 591(34) Undetected 12/24/20 Mekhi: ESR 20 CRP 7.2 (mg/L) WBC count 7.65 01/17/21 Cocci Ab - reactive (IgM neg, IgG pos) - 1:64 06/18/21 Cocci Ab - reactive (IgM neg, IgG pos) - 1:64 02/15/21: Itraconazole level 2.3 (+ Hydroxyitraconazole level 1.7) 06/18/21: Itraconazole level 2.5 (+Hydroxyitraconazole level 2.1) Lab Results Component Value Date NA 139 06/18/2021 K 4.0 06/18/2021 CL 102 06/18/2021 CO2 28 06/18/2021 ANIONGAP 9 06/18/2021 BUN 19 06/18/2021 CREATININE 0.81 06/18/2021 CALCGFR >60 06/18/2021 GLU 91 06/18/2021 CA 8.7 06/18/2021 BILT 0.3 06/18/2021 SGOT 30 06/18/2021 SGPT 27 06/18/2021 APS 83 06/18/2021 PROT 6.6 06/18/2021 SPEALB 3.7 06/18/2021 ?? Micro: Mekhi: L knee fluid - 10,840 WBCs (36% PMNs, 13% Lymphs, 51% Monocytes) L knee fluid culture: 12/24/20 - no growth (bacterial culture) - GS with many WBCs, no bacteria Fungal culture - COCCIDIOIDES POSADASII/IMMITIS ?? Radiology: MRI L knee: 06/02/21 - IMPRESSION: 1. 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 2. Medial and lateral meniscus degeneration and tears, unchanged. 3. Mucoid change of the anterior cruciate ligament, unchanged. Assessment and Plan: 56 y.o. M with HIV and coccidioidomycosis who is here for follow up. Coccidioidomycosis - No concerns for cocci meningitis, and Itraconazole would treat it regardless. He remains on the Itraconazole at 200mg BID and has had good levels. Unfortunately, the knee isn't improving at all. We discussed options of continue the Itraconazole for a full 12 months and then repeating an MRI to see where we are versus switching to Posaconazole. He would rather be aggressive and switch to Posa. We willstill plan to do a repeat MRI at 12 months of therapy. Will need a Posaconazole level about 2 weeks after starting - aiming for >1.0 mcg/mL. HIV - doing well. UTD on labs. - Currently on Genvoya, no issues - Sexual activity: None since last visit - G/C (negative pharyngeal 06/18/21) - RPR (nonreactive 06/18/21) - CD4 Q3-6 months (last: 591, 06/18/21) - VL Q3-6 months (last: undetectable, 06/18/21) - CMP Q3-6 months (last 06/18/21) Health maintenance - Lipids Q6-12 months (last 06/18/21) - A1C Q6-12 months (last 06/18/21) - UA Q6 months (if on TAF/TDF) (last 06/18/21) - Anal cancer screening: negative 2014. - BMD if >50 (never had) - ASCVD Risk (ACC/AHA Calculator) - will discuss at next visit - Colonoscopy: last done 06/18/21 3) Immunizations [...] then booster Q5 years Flu - annually, will give today (09/03/21) Men B - not indicated Hib - not indicated Tdap - 03/07/20 Shingrix - #1 12/15/19, #2 06/04/20 HPV - Not indicated COVID - Moderna x 2 doses (01/19/21, 02/16/21) Other Orders Placed This Visit Procedures ??? MR KNEE W WO CONTRAST LEFT ??? [id number] - Influenza Vaccine Quad (FLUARIX/FLULAVAL) PF 0.5 ml IM (6 mos+) Med Orders Placed This Visit and Additions to the Medication List Medications ??? posaconazole (NOXAFIL) 100 mg delayed release tablet Simg by mouth twice daily for 1 day. Then decrease to 300mg by mouth daily. Best if taken with a fatty meal. Dispense: 90 Tablet Refill: 3 It has been a pleasure seeing Ha Soria in clinic today. I spent a total of 50 minutes on the date of this encounter meeting with the patient and reviewing documentation/coordinating care as described in the above note. No procedures were performed at the time of the visit. Lilian Rushing MD, MPH [facility] Infectious Disease Office: [phone] documented in this encounter Plan of Treatment Upcoming Encounters Date Type Specialty Care Team Description 04/14/2022 Office Visit Infectious Disease Lilian Rushing MD [address] [place] [address], [address] [place] [address] (Wo rk) documented as of this encounter Results MR KNEE W WO CONTRAST LEFT (11/27/2021 19:34 EST) Anatomical Region Laterality Modality Lower Extremities Left Magnetic Resonance Specimen Impressions [facility] - 11/27/2021 20:08 EST Similar appearance compared [...] REGARDING THIS REPORT PLEASE CALL [facility] AT [phone] Narrative [facility] - 11/27/2021 20:08 EST PROCEDURE INFORMATION: Exam: [...] REGARDING THIS REPORT PLEASE CALL [facility] AT [phone] Performing Organization Address City/State/ZIP Code Phon e Number [facility] documented in this encounter Visit Diagnoses Diagnosis Coccidioidomycosis - Primary Coccidioidomycosis, unspecified Arthritis of left knee Unspecified arthropathy, lower leg Asymptomatic HIV infection (HCC) Asymptomatic human immunodeficiency viru s (HIV) infection status Medication monitoring encounter Encounter for therapeutic drug monitorin g Flu vaccine need Need for prophylactic vaccination and in oculation against influenza Coccidioidomycosis Coccidioidomycosis, unspecified Arthritis of left knee Unspecified arthropathy, lower leg documented in this encounter Discontinued Medications Medication Sig Discontinue Reason Start Date End Date itraconazole (SPORANOX) Take 2 Caps by Alternate therapy 01/17/2021 09/03/2021 100 mg capsule mouth 2 times daily for 360 days. documented as of this encounter Orders Immunization/Injection Count Last Ordered Date First O rdered Date INFLUENZA VACCINE QUAD PF 0.5 ML IM (6 1 1 MOS+) documented in this encounter Additional Health Concerns Infection Onset Date Last Indicated Resolved Time MRSAComment: Hx of ICFU-Oxwp-52/23/2020 08/29/2021 08/29/20 21 C. Stoner 12/31/21 documented as of this encounter Care Teams Inhalation Therapy Teacher Relationship Specialty Start Date End Date Gil-Marcy Santos, PCP - General Family Medicine - Primary 1 11/13/18 FINISHING AREA SUPERVISOR Care [address] [place] [phone] documented as of this encounter
--- OUTSIDE RECORDS SUMMARY | 2022-03-10 21:41 | XMS_ITS | Encounter Summary ---
:[address] [facility] Address [address] [place] [address] Care Team Providers Name Role Phone Marcy Alvarenga BUCKLE AND BUTTON MAKER Primary Care Provider [phone] Encounter Details Date Type Department Care Team Description 02/01/2021 Results Only [facility] Laura MD Imaging [facility] [place] Resul [address] [place], [place] [id number] [place] [address] [phone] (Wo rk) Social History Tobacco Use Types [...] Visit Infectious Disease Lilian Rushing MD [address] [facility], [address] [place] [address] (Wo rk) documented as of this encounter Procedures Procedure Name Priority Date/Time Associated Diagnosis Comme nts KNEE W WO 02/01/2021 15:55 Results for this CONTRAST LEFT EDT procedure are in the results section. documented in this encounter Results MR KNEE W WO CONTRAST LEFT (02/01/2021 15:55 EDT) Specimen Narrative RADIOLOGY - 02/01/2021 15:55 EDT ? EXAM: MAGNETIC RESONANCE IMAGING/KNEE LT ??EX. D/ (1502) ? CLINICAL INFORMATION: ? H/O LATENT INFECTION, NOW RECURRE NT ? PT HAS PAIN. EVALUATE FOR ABSCESS ? INDICATION: H/O LATENT INFECTION, NOW RECURRENT, PT HAS PAIN. ? EVALUATE FOR ABSCESS ? COMPARISON: Left knee radiograph 11/20/2019. ? TECHNIQUE: MRI scan of the left k nee was performed without and with ? IV gadolinium. ? FINDINGS: ? Cruciate Ligaments: ? ACL: There is a chronic sprain an d/or mucoid degeneration of the ? anterior cruciate ligament. ? PCL: The PCL is intact. ? Medial Compartment: ? Medial Supporting Structures: The MCL and medial supporting ? structures are intact. ? Medial Meniscus: Severe degene ration/degenerative tear of the ? medial meniscus. ? Cartilage: Diff use thinning of the articular cartilage of ? the medial tibiofemoral joint. ? Lateral Compartment: ? Lateral Supporting Structures: Th e LCL, iliotibial band, biceps ? femoris tendon and popliteus tend on are intact. ? Lateral Meniscus: Severe degenera tion/degenerative tear of the ? lateral meniscus. ? Cartilage: Diffuse thinning of th e articular cartilage of the lateral ? tibiofemoral joint. ? Patellofemoral Compartment: ? Extensor Mechanism: The extensor mechanism of the knee is intact. ? Retinaculum: The medial and later al patella retinacula are intact. ? Cartilage: The patellofemoral art icular surfaces are preserved. ? Bone Marrow: Bone marrow edema si gnal and marrow enhancement within ? the distal femur and proximal tib ia as well as areas of ? hypoenhancement within the medial tibial plateau and central aspect ? of the lateral tibial plateau. In traosseous cystic change within the ? posterior aspect of the medial ti bial plateau. ? Joint Space: Large knee joint eff usion with diffuse thick synovial ? enhancement. There is diffuse syn ovitis and there are juxta articular ? bony erosions. ? Soft Tissues: Mild swelling and e yumiko within the periarticular soft ? tissues of the knee. ? IMPRESSION: ? Severe knee arthritis with large joint effusion and diffuse thick ? synovial enhancement. Juxta artic ular bony erosions and multifocal ? areas of bone marrow edema as wel l as hypoenhancing regions in the ? subchondral aspect of the medial and lateral tibial plateaus which ? may represent evolving bone necro sis/abscesses. Differential ? diagnosis includes osteoarticular infection as well as a severe ? inflammatory or crystal arthropat hy. ? PAGE 1 ? Nelly d Report ? (CONTINUED) ? These findings were directly comm unicated to Dr. Laura' food and nutrition services assistant, ? Lalita Guerra on 02/01/2021 at 3:46 PM . ? REPORT SIGNED IN OTHER VENDOR SYSTEM 02/01/2021 ?Reported B y: Artur Coley MD ? CC: ? Transcribed Date/Time: 02/01/2021 (6798) ? Telecommunications Engineer: ? Printed Date/Time: 02/01/2021 (15 52) ? PAGE 2 ? Nelly d Report ? Procedure Note Artur Coley MD - 02/01/2021 EXAM: MAGNETIC RESONANCE IMAGING/KNEE L T EX. D/ (1502) CLINICAL INFORMATION: H/O LATENT INFECTION, NOW RECURRENT PT HAS PAIN. EVALUATE FOR ABSCESS INDICATION: H/O LATENT INFECTION, NOW R ECURRENT, PT HAS PAIN. EVALUATE FOR ABSCESS COMPARISON: Left knee radiograph 020. TECHNIQUE: MRI scan of the left knee wa s performed without and with IV gadolinium. FINDINGS: Cruciate Ligaments: ACL: There is a chronic sprain and/or m ucoid degeneration of the anterior cruciate ligament. PCL: The PCL is intact. Medial Compartment: Medial Supporting Structures: The MCL a nd medial supporting structures are intact. Medial Meniscus: Severe degeneration/de generative tear of the medial meniscus. Cartilage: Diffuse thinning of the javi cular cartilage of the medial tibiofemoral joint. Lateral Compartment: Lateral Supporting Structures: The LCL, iliotibial band, biceps femoris tendon and popliteus tendon are intact. Lateral Meniscus: Severe degeneration/d egenerative tear of the lateral meniscus. Cartilage: Diffuse thinning of the javi cular cartilage of the lateral tibiofemoral joint. Patellofemoral Compartment: Extensor Mechanism: The extensor mechan ism of the knee is intact. Retinaculum: The medial and lateral pat juanita retinacula are intact. Cartilage: The patellofemoral articular surfaces are preserved. Bone Marrow: Bone marrow edema signal a nd marrow enhancement within the distal femur and proximal tibia as well as areas of hypoenhancement within the medial tibia l plateau and central aspect of the lateral tibial plateau. Intraoss eous cystic change within the posterior aspect of the medial tibial p lateau. Joint Space: Large knee joint effusion with diffuse thick synovial enhancement. There is diffuse synovitis and there are juxta articular bony erosions. Soft Tissues: Mild swelling and edema w ithin the periarticular soft tissues of the knee. IMPRESSION: Severe knee arthritis with large joint effusion and diffuse thick synovial enhancement. Juxta articular b fernando erosions and multifocal areas of bone marrow edema as well as h ypoenhancing regions in the subchondral aspect of the medial and la teral tibial plateaus which may represent evolving bone necrosis/ab scesses. Differential diagnosis includes osteoarticular infec tion as well as a severe inflammatory or crystal arthropathy. PAGE 1 Signed Report (CONTINUED) These findings were directly communicat ed to Dr. Laura' food and nutrition services assistant, Lalita Guerra on 02/01/2021 at 3:46 PM. REPORT SIGNED IN OTHER VENDOR SYSTEM 02/01/2021 Reported By: Artur Coley MD CC: Transcribed Date/Time: 02/01/2021 (4014 ) Telecommunications Engineer: Printed Date/Time: 02/01/2021 (4991) PAGE 2 Signed Report Performing Organization Address City/State/ZIP Code Phon e Number RADIOLOGY documented in this encounter Visit Diagnoses Not on filedocumented in this encounter Additional Health Concerns Infection Onset Date Last Indicated Resolved Time MRSAComment: Hx of SLCR-Hpfv-36/23/2020 08/29/2021 08/29/20 21 C. Stoner 12/31/21 documented as of this encounter Care Teams Fence Supervisor Relationship Specialty Start Date End Date Gil-Marcy Santos, PCP - General Family Medicine - Primary 1 11/13/18 BUCKLE AND BUTTON MAKER Care [address] [place] [phone] documented as of this encounter
--- OUTSIDE RECORDS SUMMARY | 2022-03-10 21:41 | XMS_ITS | Encounter Summary ---
:1965 Author Organization [facility] Address [address] [place] [address] Care Team Providers Name Role Phone Marcy Alvarenga CHANNEL WORKER Primary Care Provider [phone] Reason for Referral Radiology Services (Routine/Next Available) - Specialty Report Received Specialty Diagnoses / Procedures Referred By Contact Refer red To Contact Diagnoses Chronic pain of left knee Chaitanya Easton MD Procedures XR KNEE RIGHT 3 VIEWS [address] [place] [address] Referral ID Status Reason Start Date Expiration Date Visits V isits Requested Authorized [id number] Specialty 06/14/2021 1 1 Report Received adiology Services (Routine/Next Available) - Specialty Report Received Specialty Diagnoses / Procedures Referred By Contact Refer red To Contact Diagnoses Chronic pain of left knee Chaitanya Easton MD Procedures XR KNEE LEFT 4 OR MORE VIEWS [address] [place] [address] Referral ID Status Reason Start Date Expiration Date Visits V isits Requested Authorized [id number] Specialty 06/14/2021 1 1 Report Received Reason for Visit Reason Onset Date Comments Knee Pain 06/13/2021 Encounter Details Date Type Department Care Team Description 06/13/[address] [facility] Jr Easton ain of left Total Joint Program - Frankie Tavares knee (Primary Dx) [address] [place]as[place], [place] [facility] [phone] [phone] Social History Tobacco Use Types Packs/Day Years [...] Visit Infectious Disease Lilian Rushing MD [address] [place] [address], [address] [place] [address] (Wo rk) documented as of this encounter Results XR KNEE RIGHT 3 VIEWS (06/18/2021 9:30 EDT) Anatomical Region Laterality Modality Lower Extremities Right Computed Radiography Specimen Impressions [facility] - 06/18/2021 11:48 EDT FINDINGS / IMPRESSION: * ??Left knee 4 views: Moderate joint ef fusion. Tricompartmental degenerative changes which are moderate to severe. Osteopenia. * ??Right knee 3 views: No significant o steophyte formation. Osteopenia. Narrative [facility] - 06/18/2021 11:48 EDT EXAM/TECHNIQUE: 06/18/2021 9:00 AM ??XR KNEE LEFT 4 OR MORE VIEWS, XR KNEE RIGHT 3 VIEWS 4 (accession [id number]), 3 (accession [id number]) views ?? HISTORY: ??left knee pain COMPARISON: None. Procedure Note Faustino Pereira MD - 06/18/2021 EXAM/TECHNIQUE: 06/18/2021 9:00 AM XR KNE E LEFT 4 OR MORE VIEWS, XR KNEE RIGHT 3 VIEWS 4 (accession [id number]), 3 (accession [id number]) views HISTORY: left knee pain COMPARISON: None. IMPRESSION FINDINGS / IMPRESSION: * Left knee 4 views: Moderate joint effu leigh ann. Tricompartmental degenerative changes which are moderate to severe. Osteopenia. * Right knee 3 views: No significant ost eophyte formation. Osteopenia. Performing Organization Address City/State/ZIP Code Phon e Number [facility] [place] XR KNEE LEFT 4 OR MORE VIEWS (06/18/2021 9:29 EDT) Anatomical Region Laterality Modality Lower Extremities Left Computed Radiography Specimen Impressions [facility] [place] - 06/18/2021 11:48 EDT FINDINGS / IMPRESSION: * ??Left knee 4 views: Moderate joint ef fusion. Tricompartmental degenerative changes which are moderate to severe. Osteopenia. * ??Right knee 3 views: No significant o steophyte formation. Osteopenia. Narrative [facility] - 06/18/2021 11:48 EDT EXAM/TECHNIQUE: 06/18/2021 9:00 AM ??XR KNEE LEFT 4 OR MORE VIEWS, XR KNEE RIGHT 3 VIEWS 4 (accession [id number]), 3 (accession [id number]) views ?? HISTORY: ??left knee pain COMPARISON: None. Procedure Note Faustino Pereira MD - 06/18/2021 EXAM/TECHNIQUE: 06/18/2021 9:00 AM XR KNE E LEFT 4 OR MORE VIEWS, XR KNEE RIGHT 3 VIEWS 4 (accession [id number]), 3 (accession [id number]) views HISTORY: left knee pain COMPARISON: None. IMPRESSION FINDINGS / IMPRESSION: * Left knee 4 views: Moderate joint effu leigh ann. Tricompartmental degenerative changes which are moderate to severe. Osteopenia. * Right knee 3 views: No significant ost eophyte formation. Osteopenia. Performing Organization Address City/State/ZIP Code Phon e Number [facility] documented in this encounter Visit Diagnoses Diagnosis Chronic pain of left knee - Primary Pain in joint, lower leg Chronic pain of left knee Pain in joint, lower leg Chronic pain of left knee Pain in joint, lower leg documented in this encounter Care Teams Crew Trainer Relationship Specialty Start Date End Date Gil-Marcy Santos, PCP - General Family Medicine - Primary 1 11/13/18 CHANNEL WORKER Care [address] [place] [phone] documented as of this encounter
--- OUTSIDE RECORDS SUMMARY | 2022-03-10 21:41 | XMS_ITS | Encounter Summary ---
:1965 Author Organization [facility] Address [address] [place] [address] Care Team Providers Name Role Phone Marcy Alvarenga PLASTICS WORKER Primary Care Provider [phone] Reason for Visit Reason Comments Knee Pain Left knee pain Pain Referral (Routine) - Specialty Report Received Specialty Diagnoses / Procedures Referred By Contact Refer red To Contact Orthopedic Surgery Diagnoses DJD (degenerative joint disease) Reginaldo Laura MD [address] 192 [facility] [place], [place] [address] [address] [place] [address] Phone: Fax: Referral ID Status Reason Start Date Expiration Date Visits V isits Requested Authorized [id number] Specialty 1 1 Report Received Encounter Details Date Type Department Care Team Description 06/18/2021 Office Visit [facility] Rustam, Arthritis of left knee Total Joint Program - Frankie Tavares (Primary Dx) [address] 192 [facility] Dr Vito [place], [facility] [phone] Social History Tobacco Use Types Packs/Day Years [...] documented as of this encounter Progress Notes Chaitanya Easton MD - 06/18/2021 0900 EDT Ha was evaluated in our orthopedic clinic today. As you know, this 55-year-old gentleman comes in complaining of severe left knee pain which he has had for approximately 11 years. The pain is generalized. He describes knee swelling. When he was in [place] he suffered a Coccidioides infection. Subs equently, given the significant swelling he had a Bakers cyst removed. At that point the fungal infection was diagnosed. He says that he should have sued the doctor. He subsequently underwent multiple arthroscopies for irrigation and debridement of polyps. He was then on antifungal medication. This was stopped at 1 point but he has been back on it. He is being followed by Dr. Rushing in [facility]. He was previously evaluated by Dr. Laura in [facility]. According to him, the knee was aspirated and demonstrated ongoing infection. An MRI was also obtained, which according to him demonstrated infection involving the knee joint. He takes Advil. He did physical therapy in the past. The knee has remained stiff. Pain today was 7/10. He previously had cortisone injections in the past. He denies any systemic symptoms. His past medical history includes HIV. MRSA culture positive. Hypertension. His medications are listed in the chart and were reviewed. He has no known drug allergies. Family history includes diabetes, heart disease, stroke, skin cancer. He drinks wine occasionally. Does not smoke. On exam, he ambulated without a limp. Left knee was in neutral alignment. Moderate swelling. No warmth. Range of motion was 0-100. The knee was stable. Grossly normal hip exam. Negative straight leg raise sign. Neurovascularly intact distally, however decrease in sensation globally over the left foot as compared to the right. His x-rays demonstrate moderate tricompartmental degenerative changes. An MRI report from May 2021 suggests persistent infectious/inflammatory process. Degenerative medial and lateral meniscal tears. Mucoid change of the ACL. Today I had a long discussion with Ha with respect to his left knee. 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 He has developed postinfectious degenerative changes with infection possibly involving the bones/osteomyelitis. I explained that I do not have any experience with this organism. Nevertheless, an arthroplasty procedure would be contraindicated at this point. I wouldbe happy to discuss this with the ID physicians. A radical surgical debridement could be considered,but this was something he was definitely not interested in considering at this stage. documented in this encounter Plan of Treatment Upcoming Encounters Date Type Specialty Care Team Description 04/14/2022 Office Visit Infectious Disease Lilian Rushing MD [address] [place] [address] [address] [place] [address] (Wo rk) documented as of this encounter Visit Diagnoses Diagnosis Arthritis of left knee - Primary Unspecified arthropathy, lower leg documented in this encounter Care Teams Ride Operator Relationship Specialty Start Date End Date Gil-Marcy Santos, PCP - General Family Medicine - Primary 1 11/13/18 PLASTICS WORKER Care [address] [place] [address] 2 [place] [address] documented as of this encounter
--- OUTSIDE RECORDS SUMMARY | 2022-03-10 21:41 | XMS_ITS | Encounter Summary ---
:1965 Author Organization [facility] Address [address] [place] [address] Care Team Providers Name Role Phone Marcy Alvarenga STAFF DESIGN ENGINEER Primary Care Provider [phone] Encounter Details Date Type Department Care Team Description 10/07/2021 Phlebotomy Only [facility], [facility] Op Coccid ioidomycosis; - [facility] Phlebotomy Medication monitoring encounter [facility] - Outpatient Phlebotomy Drawing [address] [place] [address] Social History Tobacco Use Types Packs/Day Years [...] this encounter Miscellaneous Notes Result QuickNote - Lilian Rushing MD - 10/07/2021 1355 EST Goal is >1000 ng/mL so we're in a good range. Continue current dose. documented in this encounter Plan of Treatment Upcoming Encounters Date Type Specialty Care Team Description 04/14/2022 Office Visit Infectious Disease Lilian Rushing MD [address] [place] [address], [address] [place] [address] (Wo rk) documented as of this encounter Procedures Procedure Name Priority Date/Time Associated Comments Diagnosis MISCELLANEOUS TEST, Routine 10/07/2021 14:01 Coccidioido mycosis Results for this [facility] Medication procedure are i n monitoring the results encounter section. documented in this encounter Results MISCELLANEOUS TEST, MILAN (10/07/2021 14:01 EST) Miscellaneous Test, SEE NOTE [facility] Comment: LABORATORIES Test ? Result ?Flag ??Unit ?? RefValue Posaconazole, S ?1420 ?ng/mL ??>700 ? ADDITIONAL INFORMATION------- ?This test was developed and its performance [facility] [employer] ?determined by [facility] in a manner consistent with CLIA ?requirements. This test has not been cleared or approved by ?the U.S. Food and Drug Administration. ?Test Performed by: ?[facility] [place] [address] [place] [address] ?Building Appraiser: Pritesh Mcgee M.D. Ph.D.; CLIA # [id number] Specimen Blood - Venous blood (substance) Performing Organization Address City/State/ZIP Code Phon e Number [facility] [address] [place] [address] documented in this encounter Visit Diagnoses Diagnosis Coccidioidomycosis Coccidioidomycosis, unspecified Medication monitoring encounter Encounter for therapeutic drug monitorin g documented in this encounter Additional Health Concerns Infection Onset Date Last Indicated Resolved Time MRSAComment: Hx of [id number]-Scdh-99/23/2020 08/29/2021 08/29/20 21 C. Stoner 12/31/21 documented as of this encounter Care Teams Tag And Label Cutter Relationship Specialty Start Date End Date Gil-Marcy Santos, PCP - General Family Medicine - Primary 1 11/13/18 STAFF DESIGN ENGINEER Care [address] [place] [phone] documented as of this encounter
--- OUTSIDE RECORDS SUMMARY | 2022-03-10 21:41 | XMS_ITS | Encounter Summary ---
:1965 Author Organization [facility] Address [address] [place] [address] Care Team Providers Name Role Phone Marcy Alvarenga SCHOOL PSYCHOLOGICAL EXAMINER Primary Care Provider [phone] Reason for Visit Reason Onset Date Comments Other 02/20/2021 returning Aissatou's call Encounter Details Date Type Department Care Team Description 02/20/2021 Telephone [facility] - Lilian Rushing, [facility] er (returning Aissatou's [facility] Dermatology MD call) [address] [place], [place] [address] [place] [address], [place] [address] Social History Tobacco Use Types [...] Telephone Encounter - Aissatou Iraheta RN - 02/25/2021 1645 EDT Detailed message left for pt elephone Encounter - Lilian Rushing MD - 02/25/2021 0846 EDT If he wants to come in sooner to check in, we certainly can. We are planning to repeat an MRI of theknee in early May (4 months after the last one) so it may be helpful to have that done prior to our appointment. elephone Encounter - Aissatou Iraheta RN - 02/22/2021 1551 EDT Pt notified of results. He is having no side effects from the Itraconazole that he has noticed. He asked if he needs a sooner follow up then 06/03/21? His next Itraconazole level is due will be due end of April. elephone Encounter - Jeniffer Leiva - 02/22/2021 1533 EDT Pt returning Aissatou's call. CB # [id number] signed by Jeniffer Leiva at 02/22/2021 15:34 EDTTelephone Encounter - Aissatou Iraheta RN - 02/20/2021 1624 EDT Images from the original note were not included. Lilian Rushing MD 02/15/2021 ??7:39 EDT MRI of spine and brain negative for evidence of Coccidioidomycosis. ??So it looks like it's just confined to the knee, which is good. Lilian Rushing MD 02/19/2021 ??8:21 EDT Itraconazole level in good range. ??Let's make sure he's not having any side effects. ??Thanks! elephone Encounter - Jeniffer Leiva - 02/20/2021 1503 EDT Pt said he was returning Aissatou's call documented in this encounter Plan of Treatment Upcoming Encounters Date Type Specialty Care Team Description 04/14/2022 Office Visit Infectious Disease Lilian Rushing MD [address] [place] [address], [address] [place] [address] (Wo rk) documented as of this encounter Visit Diagnoses Not on filedocumented in this encounter Care Teams Supervisor Slate Splitting Relationship Specialty Start Date End Date Gil-Marcy Santos, PCP - General Family Medicine - Primary 1 11/13/18 SCHOOL PSYCHOLOGICAL EXAMINER Care [address] [place] [address] 2 [place] [address] documented as of this encounter
--- OUTSIDE RECORDS SUMMARY | 2022-03-10 21:41 | XMS_ITS | Encounter Summary ---
:1965 Author Organization [facility] Address [address] [place] [address] Care Team Providers Name Role Phone Marcy Alvarenga SUPERVISOR PLASTIC SHEETS Primary Care Provider [phone] Encounter Details Date Type Department Care Team Description 06/18/2021 Lab Requisition [facility] Outr Resulting Lab, Pathology & Laboratory Provider [facility] [address] [id number] Social History Tobacco Use Types Packs/Day Years [...] Visit Infectious Disease Lilian Rushing MD [address] [facility], [address] [place], [place] [address] (Wo rk) documented as of this encounter Procedures Procedure Name Priority Date/Time Associated Diagnosis Comme nts T CELL SUBSETS Routine 06/18/2021 14:03 EDT Resul ts for this procedure are i n the results section . documented in this encounter Results (ABNORMAL) T CELL SUBSETS (06/18/2021 14:03 EDT) Pathologist Sig nature % CD3 76 56 - 84 % [facility] % CD4 34 31 - 64 % [facility] % CD8 40 (H) 9 - 39 % [facility] Absolute CD3 1,336 840-2,669 Cells/uL [facility] Absolute CD4 591 488-1,734 Cells/uL [facility] Absolute CD8 700 154-1,097 Cells/uL [facility] 4/8 Ratio 0.84 (L) >=0.90 [facility] Specimen Blood - Venous blood (substance) Performing Organization Address City/State/ZIP Code Phon e Number [facility] [address] [place] [address] SERVICES documented in this encounter Visit Diagnoses Not on filedocumented in this encounter Additional Health Concerns Infection Onset Date Last Indicated Resolved Time MRSAComment: Hx of [id number]-Fuuw-94/23/2020 08/29/2021 08/29/20 21 C. Stoner 12/31/21 documented as of this encounter Care Teams Student Nurse Relationship Specialty Start Date End Date Gil-Marcy Santos, PCP - General Family Medicine - Primary 1 11/13/18 SUPERVISOR PLASTIC SHEETS Care [address] [facility] [address] [place] [address] documented as of this encounter
--- OUTSIDE RECORDS SUMMARY | 2022-03-10 21:41 | XMS_ITS | Encounter Summary ---
:1965 Author Organization [facility] Address [address] [place] [address] Care Team Providers Name Role Phone Marcy Alvarenga CLINICAL PROFESSOR Primary Care Provider [phone] Reason for Visit Reason Onset Date Comments Pre-visit Planning 12/23/2021 Encounter Details Date Type Department Care Team Description 12/23/2021 Telephone [facility] Aissatou Iraheta RN Pre-visit Planning Infectious Disease [address] [place] [address] [place] [address] [phone] Social History Tobacco Use Types Packs/Day Years [...] Telephone Encounter - Aissatou Iraheta RN - 12/25/2021 1201 EST Labs ordered. Pt notified to have done before appt. elephone Encounter - Lilian Rushing MD - 12/25/2021 1057 EST Let's also do an RPR and a CMP. And a Posaconazole level. We can do GC/CT swabs here at his appointment if needed. Thanks. elephone Encounter - Aissatou Iraheta RN - 12/25/2021 1041 EST ??Due for VL, CD4 and UA. Last Posa level 10/07/21= 1420 HIV - doing well. UTD on labs. - Currently on Genvoya, no issues - Sexual activity: None since last visit - G/C (negative pharyngeal 06/18/21) - RPR (nonreactive 06/18/21) - CD4 Q3-6 months (last: 591, 06/18/21) - VL Q3-6 months (last: undetectable, 06/18/21) - CMP Q3-6 months (last 06/18/21) ?? Health maintenance - Lipids Q6-12 months (last 06/18/21) - A1C Q6-12 months (last 06/18/21) - UA Q6 months (if on TAF/TDF) (last 06/18/21) elephone Encounter - Aissatou Iraheta RN - 12/23/2021 1000 EST ----- Message from Aissatou Iraheta RN sent at 10/28/2021 10:07 EST ----- Due for labs prior to 01/02 appt documented in this encounter Plan of Treatment Upcoming Encounters Date Type Specialty Care Team Description 04/14/2022 Office Visit Infectious Disease Lilian Rushing MD [address] [facility], [address] [place] [address] (Wo rk) Scheduled Orders Name Type Priority Associated Diagnoses Order S chedule SYPHILIS RPR SCREEN Lab Routine Screening for viral O rdered: 12/25/2021 W/REFLEX disease High risk homosexual behavior documented as of this encounter Results UA WITH REFLEX SEDIMENT (CULTURE IF POS) (01/07/2022 10:35 EDT) Color UA Yellow Colorless to Dark [facility] Yellow [facility] Clarity UA Clear Clear [facility] Glucose UA Negative Negative [facility] Bilirubin UA Negative Negative [facility] Ketones UA Negative Negative [facility] Specific [place], 1.020 1.001 - 1.035 [facility] Urine [facility] Blood UA Negative Negative [facility] pH, UA 6.5 4.6 - 8.0 [facility] Protein UA Negative Negative [facility] Urobilinogen UA 0.2 0.2 , 1.0, Normal [facility] mg/dL [facility] Nitrite UA Negative Negative [facility] Leukocyte Esterase UA Negative Negative [facility] Specimen Urine - Urine specimen collection, clean catch (procedure) Performing Organization Address City/State/ZIP Code Phon e Number [facility] [address] [place] [address] MISCELLANEOUS TEST, NORMA (01/07/2022 9:24 EDT) Pathologist [facility] Miscellaneous Test, SEE NOTE [facility] Comment: LABORATORIES Test ? Result ?Flag ??Unit ?? RefValue Posaconazole, S ?2310 ?ng/mL ??>700 ? ADDITIONAL INFORMATION------- ?This test was developed and its performance [facility] [employer] ?determined by [facility] in a manner consistent with CLIA ?requirements. This test has not been cleared or approved by ?the U.S. Food and Drug Administration. ?Test Performed by: ?[facility] [address] ?[address] [place] [address] ?Crtts: Pritesh Mcgee M.D. Ph.D.; CLIA # [id number] Specimen Blood - Venous blood (substance) Performing Organization Address City/State/ZIP Code Phon e Number [facility] [address] [place] [address] (ABNORMAL) COMPREHENSIVE METABOLIC PANEL (CMP) (01/07/2022 9:24 EDT) Pathologist [facility] Sodium 138 136 - 145 [facility] mmol/L [facility] Potassium 4.2 3.5 - 5.0 [facility] mmol/L [facility] Chloride 99 96 - 110 mmol/L [facility] CO2 Total 29 22 - 32 mmol/L [facility] Glucose 113 (H) 70 - 100 mg/dL [facility] BUN 17 10 - 26 mg/dL [facility] Creatinine 0.90 0.66 - 1.25 [facility] mg/dL [facility] eGFR 96 >60 [facility] mL/min/1.73m2 [facility] Total Protein 6.8 6.3 - 8.2 g/dL [facility] Albumin 3.8 3.4 - 4.9 g/dL [facility] Alkaline Phosphatase 90 38 - 126 U/L [facility] AST 23 15 - 46 U/L [facility] ALT 18 <50 U/L [facility] Bilirubin, Total 0.3 <1.4 mg/dL [facility] Calcium 8.7 8.5 - 10.5 [facility] mg/dL [facility] Albumin/Globulin Ratio 1.3 1.0 - 2.5 [facility] Anion Gap 10 5 - 14 [facility] Specimen Blood - Venous blood (substance) Performing Organization Address City/State/ZIP Code Phon e Number [facility] [address] [place] [address] HIV 1 RNA QUANTITATION (01/07/2022 9:24 EDT) HIV RNA Detection, Undetected Undetected [facility] Qual copies/mL [facility] SERVICES Specimen Blood - Venous blood (substance) Narrative [facility] - 01/09/2022 14:05 EDT New platform in use 05/20/2021 The quantification range of this assay i s 20 IU/mL to 10,000,000 IU/mL. ??Testing was performed using the Areli HIV test ([employer] with the areli 6800 System. Performing Organization Address City/[facility]/ZIP Code Phon e Number [facility] [address] [place] [address] SERVICES T CELL SUBSETS (01/07/2022 9:24 EDT) Pathologist Sig nature % CD3 72 56 - 84 % [facility] % CD4 32 31 - 64 % [facility] % CD8 36 9 - 39 % [facility] Absolute CD3 1,086 840-2,669 Cells/uL [facility] Absolute CD4 493 488-1,734 Cells/uL [facility] Absolute CD8 547 154-1,097 Cells/uL [facility] 01/31 Ratio 0.90 >=0.90 [facility] Specimen Blood - Venous blood (substance) Performing Organization Address City/State/ZIP Code Phon e Number [facility] [address] [place] [address] SERVICES documented in this encounter Visit Diagnoses Diagnosis Asymptomatic HIV infection (HCC) - Prima ry Asymptomatic human immunodeficiency viru s (HIV) infection status Coccidioidomycosis Coccidioidomycosis, unspecified Screening for viral disease Special screening examination for unspec ified viral disease High risk homosexual behavior Problems related to high-risk sexual beh avior documented in this encounter Additional Health Concerns Infection Onset Date Last Indicated Resolved Time MRSAComment: Hx of [id number]-Oukl-24/23/2020 08/29/2021 08/29/20 21 C. Stoner 12/31/21 documented as of this encounter Care Teams Visual Communications Instructor Relationship Specialty Start Date End Date [place]-Marcy Santos, PCP - General Family Medicine - Primary 1 11/13/18 CLINICAL PROFESSOR Care [address] [place] [phone] documented as of this encounter
--- OUTSIDE RECORDS SUMMARY | 2022-03-10 21:41 | XMS_ITS | Encounter Summary ---
:[address] [facility] Address [address] [place] [address] Care Team Providers Name Role Phone Marcy Alvarenga GROUP HOME MANAGER Primary Care Provider [phone] Reason for Visit Reason Comments Other Encounter Details Date Type Department Care Team Description 11/26/2021 Refill [facility] - [facility] Lilian Rushing MD Other Infectious Disease [address] [facility] 130 [facility], [address] [place], [place] [address] [place] [phone] (Wo rk) Social History Tobacco Use [...] Refills Start Date End Date posaconazole (NOXAFIL) Take 3 Tablets by 270 Tablet 1 202112/11/2021 100 mg delayed release mouth every 24 tablet hours. BEST TAKEN WITH A FATTY MEAL documented in this encounter Miscellaneous Notes Telephone Encounter - Aissatou Iraheta RN - 11/27/2021 1117 EST Unable to edit the Posa rx from [facility] pharmacy. Will send new rx for 90 days documented in this encounter Plan of Treatment Upcoming Encounters Date Type Specialty Care Team Description 04/14/2022 Office Visit Infectious Disease Lilian Rushing MD [address] [place] [address] [address] [place] [address] (Wo rk) documented as of this encounter Visit Diagnoses Not on filedocumented in this encounter Discontinued Medications Medication Sig Discontinue Reason Start Date End Date posaconazole (NOXAFIL) 300mg by mouth twice Reorder 09/03/2021 11/27/2021 100 mg delayed release daily for 1 day. tablet Then decrease to 300mg by mouth daily. Best if taken with a fatty meal. documented as of this encounter Additional Health Concerns Infection Onset Date Last Indicated Resolved Time MRSAComment: Hx of [id number]-Zbvg-89/23/2020 08/29/2021 08/29/20 21 C. Stoner 12/31/21 documented as of this encounter Care Teams Cleaner Laboratory Equipment Relationship Specialty Start Date End Date Gil-Marcy Santos, PCP - General Family Medicine - Primary 1 11/13/18 GROUP HOME MANAGER Care [address] [place] [address] 2 [place] [address] documented as of this encounter
--- OUTSIDE RECORDS SUMMARY | 2022-03-10 21:41 | XMS_ITS | Encounter Summary ---
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 Primary Care Provider [phone] Reason for Visit Reason Comments Follow-up HIV, Coccidioidomycosis Encounter Details Date Type Department Care Team Description 06/18/2021 Office Visit [facility] - Lilian Rushing Asy mptomatic HIV infection ([facility]) (Primary Dx); [facility] Infectious MD Coccidioidomycosis; Disease [address] Arthritis of left knee; [address], [address] Screening for diabetes mellitus; [place] [address] [place], [place] Medication monitoring encoun ter; [phone] legal associate (current) use of antibiotics; [phone] Gonorrhea of ph arynx (Work) Social History Tobacco Use Types Packs/Day Years [...] Sign Reading Time Taken Comments Blood Pressure 150/70 06/18/2021 1334 EDT Pulse 80 06/18/2021 1334 EDT Temperature 36.8 ??C (98.3 ??F) 06/18/2021 1334 EDT Respiratory Rate 16 06/18/2021 1334 EDT Oxygen Saturation - - Inhaled Oxygen Concentration - - Weight 60.6 kg (133 lb 9.6 oz) 06/18/2021 1334 EDT Height 166.4 cm (5' 5.5) 06/18/2021 1334 EDT Body Mass Index 21.89 06/18/2021 1334 EDT documented in this encounter [...] Sig Dispensed Refills Start Date End Date msbffxk-hdt-kuczc-tenof Take 1 Tablet by 90 Tablet 3 202012/10/2021 ALAFEN (GENVOYA) mouth daily for 90 [phone] mg days. tabletIndications: HIV infection documented in this encounter Progress Notes Aissatou Morales RN - 06/18/2021 1300 EDT Patient properly identified by name and . Blood drawn via butterfly needle from R Antecubital perprotocol. DSD applied. [place] x2, red and purple x4 tube(s) sent to the lab per order. Patient tolerated the procedure well AISSATOU MORALES RN 06/18/2021 14:33 [facility] Infectious Disease Lilian Merino MD - 06/18/2021 1300 EDT INFECTIOUS DISEASE OUTPATIENT FOLLOW UP VISIT Patient name: Ha Soria Today's date: 06/18/21 HPI: Ha Soria is a 55 y.o. who is following up for HIV and Coccidioidomycosis. I last sawhim for HIV follow up on 11/26/20. I saw him again on 01/17/21 for Cocci follow up. See those notes forfull histories. At his last visit with me, he was having increasing knee, back, neck pain and headaches. At that appointment, we decided to start Itraconazole while awaiting final identification of themold from the knee tap. This eventually came back as Coccidioidomycosis, which was expected. We alsochecked the Cocci antibody titer and ordered imaging - see results below. Since that visit, I spoke to Dr. Laura at [facility] and we discussed referral to [facility] Ortho for continued management of the knee given the complexities and that he will likely eventually need a TKA. I also spoke to the [facility] in [place]. They recommended treating with antifungals and repeating an MRI of the knee in 4 months in order to get a better idea of the longer term condition of the knee and what debridement may be necessary. They also mentioned an experimental antifungal that would be fungicidal to Cocci rather than the azoles being fungistatic. It is still in studies, but it is called olorofim. This, if it gets approved, could be a good option for him in the future. As for his HIV, he is on Genvoya and has been tolerating it without issues. Last labs 11/26/20 - see below. HIV diagnosis history: Date of Dx - 11/2014 Risk Factor(s) - MSM Tobi CD4 count - unknown OI History - none known Resistance History - unknown Current Meds and Medication History - Genvoya, previously on Stribild (2014) [id number] - unknown Hep A - Immune per records Hep B - SAb+ Hep C Ab - neg (06/23/19) RPR - nonreactive (09/01/19) Today, he says he's going to have a colonoscopy at 3pm today. He saw Ortho this morning - he says hedidn't have the results from Dr. Laura from his knee tap so he was asking if he truly had an infection. He was told he couldn't have a joint replacement if he has an infection. Had a flare up a couple of weeks ago - L knee got red and swollen. Iced it and it got better. No side effects from the itraconazole other than an extra sensitive gag reflex. No reflux symptoms. No sexual activity since I saw him last. Still working - it's been busy. Due for an eye exam; feels like his eyes are getting worse. No other new neurologic symptoms. No skin lesions or rashes. He drove his parents to [place] for a wedding recently - says that's his good deed for the next 5 years. Physical Exam Vital Signs: BP (!) 150/70 (BP Cuff Location: Left arm, BP Patient Position: Sitting, BP Cuff Sizes:Adult, regular) Pulse 80 Temp 36.8 ??C (98.3 ??F) Resp 16 Ht 166.4 cm (65.5) Wt 60.6 kg (133 lb 9.6 oz) BMI 21.89 kg/m?? General: NAD Skin: no rash or obvious lesions HEENT: AT/NC. Normal dentition. Neck: supple CV: RRR, no MRG, S1 + S2 normal Pulm: CTAB, no wheezes, rales, or rhonchi Abd: soft, non-distended Ext: Warm, well-perfused, no LE edema MSK: L knee significantly larger than R with warmth but no erythema. Neuro: Non-focal Psych: Appropriate Medications: Genvoya Itraconazole: 01/17/21-present Labs: Date CD4(%) VL 11/02/15 503(23%) - 05/07/16 - Undetectable 11/19/16 439(24%) - 09/16/17 389(34%) Undetectable 04/28/19 530(30%) - 09/01/19 403(27%) Undetectable 12/05/19 - <20 03/05/20 728(33%) <20 - Undetected 11/26/20 600(34) Undetected 12/24/20 M[place]hi: ESR 20 CRP 7.2 (mg/L) WBC count 7.65 01/17/21 Cocci Ab - reactive (IgM neg, IgG pos) - 1:64 02/15/21: Itraconazole level 2.3 (+ Hydroxyitraconazole level 1.7) Lab Results Component Value Date NA 140 02/15/2021 K 4.6 02/15/2021 CL 99 02/15/2021 CO2 29 02/15/2021 ANIONGAP 12 02/15/2021 BUN 21 02/15/2021 CREATININE 1.03 02/15/2021 CALCGFR >60 02/15/2021 GLU 90 02/15/2021 CA 9.6 02/15/2021 BILT 0.2 02/15/2021 SGOT 23 02/15/2021 SGPT 20 02/15/2021 APS 90 02/15/2021 PROT 7.2 02/15/2021 SPEALB 4.0 02/15/2021 ?? Micro: M[place]hi: L knee fluid - 10,840 WBCs (36% PMNs, 13% Lymphs, 51% Monocytes) L knee fluid culture: 12/24/20 - no growth (bacterial culture) - GS with many WBCs, no bacteria Fungal culture - COCCIDIOIDES POSADASII/IMMITIS ?? Radiology: MRI L knee: 02/01/21 - IMPRESSION: Severe knee arthritis with large joint effusion and diffuse thick synovial enhancement. Juxta articular bony erosions and multifocal areas of bone marrow edema as well as hypoenhancing regions in the subchondral aspect of the medial and lateral tibial plateaus which may represent evolving bone necrosis/abscesses. Differential diagnosis includes osteoarticular infection as well as a severe inflammatory or crystal arthropathy. MRI brain: 02/14/21 - IMPRESSION: No evidence of intracranial dissemination. MRI L spine: 02/14/21 - IMPRESSION: 1. No evidence of disseminated disease or abnormal enhancement. 2. Bilateral L5 spondylolysis. 3. Grade 1-2 anterolisthesis L5-S1 with disc space narrowing and disc desiccation. 4. L5-S1 broad-based disc bulge without spinal stenosis. Bilateral moderate to severe neuroforaminal narrowing. 5. L4-L5 central disc protrusion without spinal stenosis. Mild bilateral neuroforaminal narrowing. 6. L3-L4 broad-based disc bulge without spinal stenosis. Minimal bilateral ligamentum flavum hypertrophy. Minimal bilateral neural foraminal narrowing. 7. L2-L3 broad-based disc protrusion with minimal central canal stenosis and ligamentum flavum hypertrophy. No neuroforaminal narrowing. MRI L knee: 06/02/21 - IMPRESSION: 1. 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 2. Medial and lateral meniscus degeneration and tears, unchanged. 3. Mucoid change of the anterior cruciate ligament, unchanged. Assessment and Plan: 55 y/o M with HIV and coccidioidomycosis who is here for follow up. Coccidioidomycosis - No concerns for cocci meningitis at this time, and Itraconazole would treat it regardless. He remains on the Itraconazole at 200mg BID. Will recheck levels today. No change on the knee MRI, so we'll recheck his antibody titer to assess response to therapy. As previously noted, antifungal treatment arrests further proliferation but does not kill the organism, so debridement may be needed to stop further tissue destruction and to improve his mobility and quality of life. He will be on lifelong antifungals, so from an infection perspective, implanting hardware is less concerning (if he ends up needinga TKA). HIV - doing well. Due for labs. - Currently on Genvoya, no issues - Sexual activity: None since last visit - G/C (postive GC pharyngeal 12/03/20, treated with 1Gm IM Ceftriaxone. Didn't f/u for NAYANA so will do today) - RPR (nonreactive 09/01/19) - CD4 Q3-6 months (last: 600, 11/26/20) - VL Q3-6 months (last: undetectable, 11/26/20) - CMP Q3-6 months (last 11/26/20) Health maintenance - Lipids Q6-12 months (last 05/01/20) - A1C Q6-12 months (last 12/05/19) - UA Q6 months (if on TAF/TDF) (last 11/26/20) - Anal cancer screening: negative 2014. - BMD if >50 (never had, will order today) - ASCVD Risk (ACC/AHA Calculator) - will calculate after today's labs come back - Colonoscopy: having one today 06/18/21 3) Immunizations MMR - 05/30/19: Mumps [...] then booster Q5 years Flu - annually, given 09/01/19 Men B - not indicated Hib - not indicated Tdap - 03/07/20 Shingrix - #1 12/15/19, #2 06/04/20 HPV - Not indicated COVID - Had 2-dose series, but lost the card. Advised to call [facility] for replacement card and then callus to let us know so we can put in Epic. Other Orders Placed This Visit Procedures ??? Misc Sites, Chlamydia trachomatis and Neisseria gonorrhoea, Amplified RNA ??? Complete Blood Count and Differential ??? Comprehensive Metabolic Panel (CMP) ??? HIV 1 RNA Quantitation ??? Syphilis Serology ??? Lipid Profile (Includes Cholesterol, Triglycerides, HDL, LDL) ??? Urine Sediment (Micro) with reflex to culture ??? Hemoglobin A1c ??? Itraconazole, S ??? Miscellaneous Test, [place] ??? Miscellaneous Test, [facility] Orders Placed This Visit and Additions to the Medication List Medications ??? xgqjbgc-xrp-gelso-tenof ALAFEN (GENVOYA) [id number] mg tablet Sig: Take 1 Tablet by mouth daily for 90 days. Dispense: 90 Tablet Refill: 3 It has been a pleasure seeing Ha Soria in clinic today. I spent a total of 120 minutes on the date of this encounter meeting with the patient and reviewing documentation/coordinating care as described in the above note. No procedures were performed at the time of the visit. Lilian Rushing MD, MPH [facility] Infectious Disease Office: [phone] Cc: PCP, Dr. Easton at [facility] documented in this encounter Plan of Treatment Upcoming Encounters Date Type Specialty Care Team Description 04/14/2022 Office Visit Infectious Disease Lilian Rushing MD [address] [place] [address], [address] [place] [address] (Wo rk) Scheduled Orders Name Type Priority Associated Diagnoses Order S chedule COMPLETE BLOOD COUNT Lab Routine Asymptomatic HIV inf ection Ordered: AND DIFFERENTIAL ([facility]) 06/18/2021 Coccidioidomycosis HIV 1 RNA Lab Routine Asymptomatic HIV infection O rdered: QUANTITATION ([facility]) 06/18/2021 SYPHILIS SEROLOGY Lab Routine Asymptomatic HIV infect ion Ordered: ([facility]) 06/18/2021 URINE SEDIMENT Lab Routine Asymptomatic HIV infection Ordered: (MICRO) WITH REFLEX ([facility]) 06/18/20 21 TO CULTURE ITRACONAZOLE, S Lab Routine Coccidioidomycosis Ordere d: 06/18/2021 MISCELLANEOUS TEST, Lab Routine Asymptomatic HIV infe ction Ordered: BLANDON ([facility]) 06/18/2021 Arthritis of left knee MISCELLANEOUS TEST, Lab Routine Coccidioidomycosis Or dered: BLANDON 06/18/2021 N. GONORRHOEAE AND Microbiology Routine Gonorrhea of pharynx O rdered: CHLAMYDIA 06/18/2021 TRACHOMATIS, MISC SITES, AMPLIFIED RNA documented as of this encounter Procedures Procedure Name Priority Date/Time Associated Comments Diagnosis URINALYSIS - [facility] Routine 06/18/2021 14:20 Asymptomatic HIV Re sults for this EDT infection ([facility]) procedur e are in the results section. MISCELLANEOUS TEST, BLANDON Routine 06/18/2021 14:20 Asymptomatic HIV Results for this EDT infection ([facility]) procedur e are in the results section. IMMUNODEFICIENCY PANEL - Routine 06/18/2021 14:03 Asymptomatic HIV Results for this INTERIM EDT infection ([facility]) procedur e are in the results section. COMPLETE BLOOD COUNT Routine 06/18/2021 14:03 Asymptomatic HIV Results for this WITH DIFFERENTIAL (AUTO) EDT infection ([facility]) procedure are in the results section. RAPID PLASMA REAGIN Routine 06/18/2021 14:03 Asymptomatic HIV Results for this (RPR) WITH REFLEX, S EDT infection ([facility]) procedure are in the results section. MISCELLANEOUS TEST, BLANDON Routine 06/18/2021 14:03 Asymptomatic HIV Results for this EDT infection ([facility]) procedur e are in the results section. MISCELLANEOUS TEST, BLANDON Routine 06/18/2021 14:03 Asymptomatic HIV Results for this EDT infection ([facility]) procedur e are in the results section. HIV 1 RNA QUANTITATION Routine 06/18/2021 14:03 Asymptomatic H IV Results for this EDT infection (HCC-CMS) procedur e are in the results section. HEMOGLOBIN A1C Routine 06/18/2021 14:03 Asymptomatic HIV Resul ts for this EDT infection (HCC-C [facility]) procedure are in Screening for the results diabetes mellitus section. LIPID PROFILE (INCLUDES Routine 06/18/2021 14:03 Asymptomatic HIV Results for this CHOLESTEROL, EDT infection (HCC-CMS) procedur e are in TRIGLYCERIDES, HDL, LDL) the results section. COMPREHENSIVE METABOLIC Routine 06/18/2021 14:03 Asymptomatic HIV Results for this PANEL (CMP) EDT infection (HCC-C [facility]) procedure are in Coccidioidomycosis the resul ts section. documented in this encounter Results MISCELLANEOUS TEST, BLANDON (06/18/2021 14:20 EDT) [facility] MISCELLANEOUS TEST - SEE BELOW () [facility] Comment: [facility] Test ? Result ?? Flag ??Unit ??RefValue ------ Misc C trach/N gonor Amplified RNA ??C. trach, Misc, Amplified ?TNP ?RNA Misc C trach/N gonor Amplified RNA was cancelled on 06/19/2021 at 20:03; Reason: Test MCTGC was cancelled and replaced with Test CGRNA due to specimen source. ??N. gonorr, Misc, Amplified ?? TNP ?RNA Misc C trach/N gonor Amplified RNA was cancelled on 06/19/2021 at 20:03; Reason: Test MCTGC was cancelled and replaced with Test CGRNA due to specimen source. Test Performed by: [address] [address] Sexual Abuse Counsellor: Pritesh Mcgee M.D. Ph.D.; CLIA# [id number] ? Test ? Result ?? Flag ??Unit ??RefValue ------ Chlamydia/Gonorrhoeae Amplified RNA ??SOURCE: ?THROAT ?Chlamydia trachomatis ?Negative ? Negative ?amplified RNA ADDITIONAL INFORMATION ------ This report is intended for use in clinical monitoring and management of patients. It is not intended for use in medical-legal applications. ??SOURCE: ?THROAT ?Neisseria gonorrhoeae ?Negative ? Negative ?amplified RNA ADDITIONAL INFORMATION ------ This report is intended for use in clinical monitoring and management of patients. It is not intended for use in medical-legal applications. Test Performed by: [facility] [employer] - [address] [address] Sexual Abuse Counsellor: Pritesh Mcgee M.D. Ph.D.; CLIA# [id number] CONTAINS ADDITIONAL TEST RESULTS Specimen Performing Organization Address City/State/ZIP Code Phon e Number [facility] [address] [place] [address] URINALYSIS - [facility] (06/18/2021 14:20 EDT) URINE APPEARANCE - Clear CLEAR [facility] URINE BILIRUBIN - Negative NEGATIVE [facility] DIPSTICK - [facility] URINE BLOOD - [facility] Negative NEG [facility] URINE COLOR - [facility] Yellow YELLOW [facility] URINE GLUCOSE - Negative NEGATIVE [facility] DIPSTICK [facility] URINE KETONE - [facility] Negative NEGATIVE [facility] URINE LEUK ESTERASE Negative NEG [facility] URINE NITRITE - Negative NEG [facility] DIPSTICK [facility] URINE PH - [facility] 7.5 4.0 - 8.0 [facility] URINE PROTEIN - Negative NEG [facility] URCULTIF+? - [facility] No Culture [facility] IndicatedComment: [facility] CULTURE IS NOT INDICATED, BASED ON RESULTS OF THE URINALYSIS URINE SPECIFIC 1.015 1.001 - 1.035 [facility] GRAVITY [facility] URINE UROBILINOGEN - 0.2 0.2 - 1.0 [facility] DIPSTICK [facility] Specimen Performing Organization Address City/State/ZIP Code Phon e Number [facility] [address] [place] [address] MISCELLANEOUS TEST, BLANDON (06/18/2021 14:03 EDT) Pathologist [facility] MISCELLANEOUS TEST - SEE BELOW () [facility] Comment: [facility] Coccidioides Ab Screen w/Reflex, S ??Coccidioides Ab Screen: ?Reactive ? Confirmatory testing by complement fixation and immunodiffusion has been ordered. ADDITIONAL INFORMATION ------ This test has been modified from the massage operator's instructions. Its performance characteristics were determined by [facility] in a manner consistent with CLIA requirements. This test has not been cleared or approved by the U.S. Food and Drug Administration. REFLEX TEST: Coccidiodes, IgM, ImmDiff Result: Negative ?Reference Value: Negati ve Immunodiffusion (ImmDiff)results suggest resolving or current infection. Results shoudl be interpreted in th e context of clinical presentation and other laboratory findings (e.g. fungal culture). REFLEX TEST: Coccidiodes IgG. ImmDiff Result: Positive ? Reference value: Negat alicia REFLEX TEST: Coccidioides Ab CompF,S Result: 1:64 ?Reference value: Negative Complement fixation (CompF) results suggest resolving or current infection. Increasing titers in serially collected samples (collected 2-3 weeks apart) are diagnostic for active disease. Results should be interpreted in the context of clinical presentation and other laboratory findings (e.g., dayday al culture) Test Performed by: [place] [address] Sexual Abuse Counsellor: Pritesh Mcgee M.D. Ph.D.; IA# [id number] 06/25/21 1128: ??Amended Report ??MISC TEST previously reported as: SEE BELOW ? Specimen Performing Organization Address City/State/ZIP Code Phon e Number [facility] [address] [place] [address] MISCELLANEOUS TEST, BLANDON (06/18/2021 14:03 EDT) [facility] MISCELLANEOUS TEST - SEE BELOW () [facility] Comment: [facility] Test ?Result ?Flag ??Unit ?RefValue ------ Itraconazole, S ? 2.5 ? mcg/mL ? REFERENCE VALUE ------ >0.5 (localized infection), >1.0 (systemic infection) ??Hydroxyitraconazole ? 2.1 ? mcg/mL ? REFERENCE VALUE ------ No therapeutic range established; activity and serum concentration are similar to parent drug. ADDITIONAL INFORMATION ------ This test was developed and its performance characteri stics determined by [facility] in a manner consistent with CLIA requirements. This test has not been cleared or approv ed by the U.S. Food and Drug Administration. Test Performed by: [facility] [place] [address] Sexual Abuse Counsellor: Pritesh Mcgee M.D. Ph.D.; CLIA# [id number] Specimen Performing Organization Address [facility] Phon e Number [facility] [address] [place] [address] (ABNORMAL) IMMUNODEFICIENCY PANEL - INTERIM (06/18/2021 14:03 EDT) 4/8 RATIO 0.84 (A) >=0.90 [facility] Comment: [facility] Test performed or referred by The [address] [address] CD3 76 56 - 84 % [facility] CD4 34 31 - 64 % [facility] CD8 - [facility] 40 (A) 9 - 39 % [facility] ABSOLUTE CD3 [phone],[id number] [facility] Cells/uL [facility] ABSOLUTE CD4 591 488-1,734 [facility] Cells/uL [facility] TOTCD8 700 154-1,097 [facility] Cells/uL [facility] Specimen Performing Organization Address City/[facility] Phon e Number [facility] [address] [place] [address] HIV 1 RNA QUANTITATION (06/18/2021 14:03 EDT) Pathologist [facility] HIV-1 RNA QUANT - Undetected Undetected [facility] Comment: [facility] INFCE Result Units: copies/mL Result in log copies/mL is Undetected. ADDITIONAL INFORMATION ------ The quantification range of this assay is 20 to 10,000 ,000 copies/mL (1.30 log to 7.00 log copies/mL). Testing wa s performed using the rafael HIV-1 test ([employer] with the rafael Grivy0 System. This test has been modified from the massage operator's instructions. Its performance characteristics were determined by [facility] in a manner consistent with CLIA requirements. This test has not been cleared or approv ed by the U.S. Food and Drug Administration. Test Performed by: [place] [address] Sexual Abuse Counsellor: Pritesh Mcgee M.D. Ph.D.; CLIA# [id number] Specimen Performing Organization Address City/[facility]/ZIP Code Phon e Number [facility] [address] [place] [address] RAPID PLASMA REAGIN (RPR) WITH REFLEX, S (06/18/2021 14:03 EDT) Pathologist [facility] APID PLASMA REAGIN - Nonreactive NEG [facility] Specimen Performing Organization Address City/[facility]/ZIP Code Phon e Number [facility] [address] [place] [address] (ABNORMAL) COMPLETE BLOOD COUNT WITH DIFFERENTIAL (AUTO) (06/18/2021 14:03 EDT) Pathologist [facility] ABSOLUTE NEUTROPHIL 5.0 2.2 - 8.85 [facility] COUN - [facility] 10e3/uL CENTER LAB BASO # - [facility] 0.02 0.01 - 0.11 [facility] 10e/uL CENTER LAB BASO % - [facility] 0 0 - 2 % [facility] EOS # - [facility] 0.10 0.03 - 0.61 [facility] 10e3/ul CENTER LAB EOS % - [facility] 1 0 - 5 % [facility] GRAN % - [facility] 64.0 40 - 80 % [facility] HEMATOCRIT - [facility] 35.5 (L) 39.5 - 50.2 % [facility] HEMOGLOBIN - [facility] 11.8 (L) 13.8 - 17.3 [facility] g/dl CENTER LAB IG# - [facility] 0.04 0 - 0.7 10e3/uL [facility] [facility] LAB IG% - [facility] 0.5 0 - 0.9 % [facility] LYMPH # - [facility] 1.8 1.09 - 3.3 [facility] 10e3/ul [facility] LYMPH% - [facility] 22.7 20 - 40 % [facility] MEAN CORPUSCULAR HGB 28.5 27.6 - 33.0 pg [facility] ME D - [facility] CENTER LAB MEAN CORPUSCULAR HGB 33.2 32.8 - 36.4 [facility] CONC - [facility] g/dL CENTER LAB MEAN CELL VOLUME - 85.7 81 - [address] [facility] MONO # - [facility] 0.9 (H) 0.1 - 0.8 [facility] 10e3/uL [facility] MONO% - [facility] 11.2 0 - 12 % [facility] PLATELET COUNT 294 141 - 377 [facility] 10e3/ul [facility] RED BLOOD COUNT - 4.14 (L) 4.36 - 5.78 [facility] 10e6/ul [facility] RED CELL DISTRI WIDTH 14.7 <14.2 % [facility] WHITE BLOOD COUNT - 7.7 4.0 - 10.4 [facility] 10e3/ul [facility] Specimen Performing Organization Address City/State/ZIP Code Phon e Number [facility] [address] [place] [address] HEMOGLOBIN A1C (06/18/2021 14:03 EDT) Hemoglobin A1c 5.6 4.0 - 6.0 % [facility] Comment: [facility] > or =18 years: ??Increased risk for diabetes (prediabetes): 5.7-6.4% Diabetes: > or =6.5% Therapeutic goals for glycemic control (ADA) Adults: - Goal of therapy: <7.0% HbA1c - Action suggested: >8.0% HbA1c Pediatric patients: - Toddlers and preschoolers: <8.5% (but >7.5%) - School age (6-12 years): <8% - Adolescents and young adults (13-19 years): <7.5% Est Avg Glucose 114 mg/dL [facility] Specimen Blood - Venous blood (substance) Performing Organization Address [facility] Phon e Number [facility] [address] [place] [address] (ABNORMAL) LIPID PROFILE (INCLUDES CHOLESTEROL, TRIGLYCERIDES, HDL, LDL) (06/18/2021 14:03 EDT) Triglyceride 50 <150 mg/dL [facility] Comment: [facility] Adult: Normal: ?<150 mg/dl ? Borderline High: 150-199 mg/dl ? High: ?200-499 mg/dl ? Very High: >ib=564 Cholesterol 123 <200 mg/dL [facility] Comment: [facility] Acceptable: ??<200 Borderline: ??200-239 High: ?> or = 240 Chol/HDL Ratio 1.8 0 - 5.0 [facility] Comment: [facility] DESIRABLE RATIO IS LESS THAN 4.1 PATIENTS ARE CONSIDERED AT RISK: WOMEN RATIO >5 MEN RATIO >6 FASTING? - [facility] Unknown [facility] HDL 65 (H) 40 - 60 mg/dL [facility] Comment: [facility] ?? Reference Range Low: ? < 40 ??mg/dL Normal: ??40-60 mg/dL High: ?>= 60 mg/dL LDL CHOLESTEROL - 48 (L) 60 - 100 [facility] mg/dL [facility] Non HDL Cholesterol 58 mg/dl [facility] Comment: [facility] Desirable: ?Less than 130 Borderline High: ??130-159 High: ? 160-189 Very High: ?Greater than or equal to 190 Specimen Blood - Venous blood (substance) Performing Organization Address [facility] Phon e Number [facility] [address] [place] [address] COMPREHENSIVE METABOLIC PANEL (CMP) (06/18/2021 14:03 EDT) ALBUMIN - [facility] 3.7 3.4 - 4.9 [facility] g/dL [facility] ALKALINE 83 38 - 126 U/L [facility] PHOSPHATASE - [facility] BILIRUBIN TOTAL 0.3 0.2 - 1.3 [facility] mg/dL [facility] BUN - [facility] 19 10 - 26 mg/dL [facility] CALCIUM - [facility] 8.7 8.5 - 10.5 [facility] mg/dL [facility] Chloride 102 96 - 110 [facility] mmol/L [facility] CO2 Total 28 21 - 32 mEq/L [facility] CREATININE 0.81 0.66 - 1.25 [facility] mg/dL [facility] eGFR >60 [facility] Comment: [facility] Chronic renal impairment is defined as GFR <60 Multiply result by 1.210 for patients . Anion Gap 9 0 - 18 [facility] GLUCOSE - [facility] 91 70 - 100 [facility] mg/dL [facility] Potassium 4.0 3.5 - 5.0 [facility] mEq/L [facility] Sodium 139 136 - 145 [facility] mEq/L [facility] TOTAL PROTEIN - 6.6 6.2 - 8.2 [facility] gm/dL [facility] SGOT/AST - [facility] 30 17 - 59 U/L [facility] SGPT/ALT - [facility] 27 0 - 50 U/L [facility] Specimen Blood - Venous blood (substance) Performing Organization Address City/State/ZIP Code Phon e Number [facility] [address] [place] [address] documented in this encounter Visit Diagnoses Diagnosis Asymptomatic HIV infection (HCC) - Prima ry Asymptomatic human immunodeficiency viru s (HIV) infection status Coccidioidomycosis Coccidioidomycosis, unspecified Arthritis of left knee Unspecified arthropathy, lower leg Screening for diabetes mellitus Medication monitoring encounter Encounter for therapeutic drug monitorin g group home (current) use of antibiotics Gonorrhea of pharynx Gonococcal infection of pharynx documented in this encounter Discontinued Medications Medication Sig Discontinue Reason Start Date End Date ywxkuxs-imm-sbkqa-tenof Take 1 Tab by mouth Reorder 12/03/2020 06/18/2021 ALAFEN (GENVOYA) daily for 90 days. [phone] mg tabletIndications: HIV infection documented as of this encounter Care Teams Taxicab Dispatcher Relationship Specialty Start Date End Date Marcy Alvarenga, PCP - General Family Medicine - Primary 1 11/13/18 FORMULATOR COMPOUNDER Care [address] [place] [phone] documented as of this encounter
--- OUTSIDE RECORDS SUMMARY | 2022-03-10 21:41 | XMS_ITS | Encounter Summary ---
:1965 Author Organization [facility] Address [address] [place] [address] Care Team Providers Name Role Phone Marcy Alvarenga CHEMICAL RESEARCH WORKER Primary Care Provider [phone] Reason for Visit Reason Onset Date Comments Medications Refill 11/06/2021 Encounter Details Date Type Department Care Team Description 11/06/2021 Refill [facility] Geoff Alvarenga Medications Refill Family Medicine - Be nicol Ruiz, CHEMICAL RESEARCH WORKER [address] [facility] [place] [address] [place] [address] [place] [address] [facility] (Wo rk) Social History Tobacco Use Types [...] 11/0702/07/2022 mg capsule MOUTH ONCE DAILY documented in this encounter Miscellaneous Notes Telephone Encounter - Syl Winchester LPN - 11/13/2021 0900 EST Letter written requesting pt contact office for scheduling. Letter printed, prepared to mail out, placed in outgoing mail box. elephone Encounter - Syl Winchester LPN - 11/07/2021 1017 EST TE to front office, please reach out to pt for scheduling next available with JFW for f/u CDM elephone Encounter - Syl Winchester LPN - 11/07/2021 0805 EST [facility] MEDICATION REFILL Medication: tamsulosin Medication, dose, directions verified: yes Pharmacy verified: yes Last office visit: 05/01/2020 Next office visit: none Short term supply pended with note for pharmacy that pt needs visit for further refills--pt did not respond to detailed voicemail in 05/2021 to schedule. elephone Encounter - Eddy Burgess MA - 11/06/2021 1651 EST Pt called Rx line. Needs refill: -TAMSulosin (FLOMAX) 0.4 mg capsule Ramirez Chaves documented in this encounter Plan of Treatment Upcoming Encounters Date Type Specialty Care Team Description 04/14/2022 Office Visit Infectious Disease Lilian Rushing MD [address] [facility], [address] [place] [address] (Wo rk) documented as of this encounter Visit Diagnoses Not on filedocumented in this encounter Discontinued Medications Medication Sig Discontinue Reason Start Date End Date TAMSulosin (FLOMAX) 0.4 TAKE 1 CAPSULE BY Reorder 05/01/2021 11/07/2021 mg capsule MOUTH ONCE DAILY documented as of this encounter Additional Health Concerns Infection Onset Date Last Indicated Resolved Time MRSAComment: Hx of WOAJ-Lnpo-69/23/2020 08/29/2021 08/29/20 21 C. Stoner 12/31/21 documented as of this encounter Care Teams Financial Systems Manager Relationship Specialty Start Date End Date Marcy Alvarenga, PCP - General Family Medicine - Primary 1 11/13/18 CHEMICAL RESEARCH WORKER Care [address] [place] [address] [address] [place] [address] documented as of this encounter
--- OUTSIDE RECORDS SUMMARY | 2022-03-10 21:41 | XMS_ITS | Encounter Summary ---
:1965 Author Organization [facility] Address [address] [place] [address] Care Team Providers Name Role Phone Marcy Alvarenga STOCK GRADER Primary Care Provider [phone] Encounter Details Date Type Department Care Team Description 12/24/2020 Lab Requisition [facility] Outr Resulting Lab, Pathology & Laboratory Provider [facility] [address] [id number] Social History Tobacco Use Types Packs/Day Years [...] Visit Infectious Disease Lilian Rushing MD [address] [facility] [address] [place] [address] (Wo rk) documented as of this encounter Procedures Procedure Name Priority Date/Time Associated Diagnosis Comme nts ANAEROBE CULTURE, Routine 12/24/2020 11:05 Result s for this REFERENCE EST procedure are i n the results section. documented in this encounter Results ANAEROBE CULTURE, REFERENCE (12/24/2020 11:05 EST) Pathologist Sig nature Organism ID No Anaerobes [facility] Isolated LABORATORY SERVICES Specimen Fluid - Entire knee region (body structu re) Performing Organization Address City/State/ZIP Code Phon e Number [facility] [address] [place] [address] SERVICES documented in this encounter Visit Diagnoses Not on filedocumented in this encounter Additional Health Concerns Infection Onset Date Last Indicated Resolved Time MRSAComment: Hx of [facility]-Ffpk-25/23/2020 08/29/2021 08/29/20 21 C. Stoner 12/31/21 documented as of this encounter Care Teams Kindergarten Teacher Assistant Relationship Specialty Start Date End Date Gil-Marcy Santos, PCP - General Family Medicine - Primary 1 11/13/18 STOCK GRADER Care [address] [place] [address] [address] [place] [address] documented as of this encounter
--- OUTSIDE RECORDS SUMMARY | 2022-03-10 21:41 | XMS_ITS | Encounter Summary ---
:1965 Author Organization [facility] Address [address] [place] [address] Care Team Providers Name Role Phone Marcy Alvarenga RESIDENTIAL SUPERVISOR Primary Care Provider [phone] Reason for Referral Radiology Services (Routine/Next Available) - Specialty Report Received Specialty Diagnoses / Procedures Referred By Contact Refer red To Contact Diagnoses Chronic pain of left knee Chaitanya Easton MD Procedures XR KNEE LEFT 4 OR MORE VIEWS [address] [place] [address] Referral ID Status Reason Start Date Expiration Date Visits V isits Requested Authorized [id number] Specialty 06/14/2021 1 1 Report Received Reason for Visit Radiology Services (Routine/Next Available) - Specialty Report Received Specialty Diagnoses / Procedures Referred By Contact Refer red To Contact Diagnoses Chronic pain of left knee Chaitanya Easton MD Procedures XR KNEE LEFT 4 OR MORE VIEWS [address] [place] [address] Referral ID Status Reason Start Date Expiration Date Visits V isits Requested Authorized [id number] Specialty 06/14/2021 1 1 Report Received Encounter Details Date Type Department Care Team Description 06/18/2021 Hospital Encounter [facility] Xray Chronic pain of left [address] [place] [address] Social History Tobacco Use Types Packs/Day Years [...] 3 04/24 mg tablet MOUTH EVERY DAY nhhhxte-lnb-zyxet-tenof Take 1 Tablet by 90 Tablet 3 202012/10/2021 ALAFEN (GENVOYA) mouth daily for 90 [phone] mg days. tabletIndications: HIV infection itraconazole (SPORANOX) Take 2 Caps by mouth 360 Cap 3 09/03/2021 100 mg capsule 2 times daily for 360 days. TAMSulosin (FLOMAX) 0.4 TAKE 1 CAPSULE BY 90 capsule 3 05/0111/07/2021 mg capsule MOUTH ONCE DAILY documented as of this encounter Discharge Disposition Disposition Code Departure Means Destination Home or Self Care documented in this encounter Plan of Treatment Upcoming Encounters Date Type Specialty Care Team Description 04/14/2022 Office Visit Infectious Disease Lilian Rushing MD [address] [place] [address], [address] [place] [address] (Wo rk) documented as of this encounter Procedures Procedure Name Priority Date/Time Associated Diagnosis Comme nts XR KNEE LEFT 4 OR Routine 06/18/2021 9:29 EDT Chronic pain of left Results for this MORE VIEWS knee procedure are i n the results section. documented in this encounter Results XR KNEE LEFT 4 OR MORE VIEWS (06/18/2021 9:29 EDT) Anatomical Region Laterality Modality Lower Extremities Left Computed Radiography Specimen Impressions [facility] - 06/18/2021 11:48 EDT FINDINGS / IMPRESSION: * ??Left knee 4 views: Moderate joint ef fusion. Tricompartmental degenerative changes which are moderate to severe. Osteopenia. * ??Right knee 3 views: No significant o steophyte formation. Osteopenia. Narrative [facility] - 06/18/2021 11:48 EDT EXAM/TECHNIQUE: 06/18/2021 9:00 AM ??XR KNEE LEFT 4 OR MORE VIEWS, XR KNEE RIGHT 3 VIEWS 4 (accession [id number]), 3 (accession [id number]) views ?? HISTORY: ??left knee pain COMPARISON: None. Procedure Note Faustino Pereira MD - 06/18/2021 EXAM/TECHNIQUE: 06/18/2021 9:00 AM XR KNE E LEFT 4 OR MORE VIEWS, XR KNEE RIGHT 3 VIEWS 4 (accession [id number]), 3 (accession [id number]) views HISTORY: left knee pain COMPARISON: None. IMPRESSION FINDINGS / IMPRESSION: * Left knee 4 views: Moderate joint effu leigh ann. Tricompartmental degenerative changes which are moderate to severe. Osteopenia. * Right knee 3 views: No significant ost eophyte formation. Osteopenia. Performing Organization Address City/State/ZIP Code Phon e Number [facility] [place] documented in this encounter Visit Diagnoses Diagnosis Chronic pain of left knee Pain in joint, lower leg documented in this encounter Care Teams [employer] Renowned Chef And Restaurant Owner Relationship Specialty Start Date End Date Gil-Marcy Santos, PCP - General Family Medicine - Primary 1 11/13/18 RESIDENTIAL SUPERVISOR Care [address] [place] [phone] documented as of this encounter
--- OUTSIDE RECORDS SUMMARY | 2022-03-10 21:41 | XMS_ITS | Encounter Summary ---
:1965 Author Organization [facility] Address [address] [place] [address] Care Team Providers Name Role Phone Marcy Alvarenga LIFEGUARD Primary Care Provider [phone] Reason for Visit (Routine) - Receiving Office to Obtain Authorization Specialty Diagnoses / Procedures Referred By Contact Refer red To Contact Procedures Unknown, Provider, XR OUTSIDE IMAGES MSK Phone: Referral ID Status Reason Start Expiration Visits Visits Date Date Requested Authorized [id number] Receiving Office 02/12/2021 1 1 to Obtain Authorization Encounter Details Date Type Department Care Team Description 12/24/2020 Hospital Encounter [facility] Secondary Reads Social History Tobacco Use Types Packs/Day Years [...] 0 100 mg capsule cetirizine (ZYRTEC) 10 mg 1 tab(s) orally PRN 0 tablet chlorhexidine (HIBICLENS) Use to wash yourself 473 mL 1 08/21/2020 4 % liquidIndications: head to toe with Community acquired MRSA this soap daily for infection at least 1 week Clindamycin Phosphate 1 % 1 nael applied 0 swab topically PRN miinowm-yul-qrqer-tenof Take 1 Tab by mouth 90 Tab 3 05/202106/18/2021 ALAFEN (GENVOYA) daily for 90 days. [phone] mg tabletIndications: HIV infection lisinopriL (PRINIVIL) 10 Take 1 Tab by mouth 90 Tab 3 04/24/2021 mg tabletIndications: daily. hypertension tamsulosin (FLOMAX) 0.4 Take 1 Cap by mouth 90 Cap 3 05/01/2021 mg capsule daily. documented as of this encounter Discharge Disposition Disposition Code Departure Means Destination Home or Self Care documented in this encounter Plan of Treatment Upcoming Encounters Date Type Specialty Care Team Description 04/14/2022 Office Visit Infectious Disease Lilian Rushing MD [address] [place] [address], [address] [place] [address] (Wo rk) documented as of this encounter Procedures Procedure Name Priority Date/Time Associated Diagnosis Comme nts XR OUTSIDE IMAGES Routine 02/12/2021 15:34 Result s for this MSK EDT procedure are i n the results section. documented in this encounter Results XR OUTSIDE IMAGES MSK (02/12/2021 15:34 EDT) Specimen Narrative 02/12/2021 15:34 EDT This is a non-reportable exam. documented in this encounter Visit Diagnoses Not on filedocumented in this encounter Care Teams Marketing Team Lead Relationship Specialty Start Date End Date Gil-Marcy Santos, PCP - General Family Medicine - Primary 1 11/13/18 LIFEGUARD Care [address] [place] [phone] documented as of this encounter
--- OUTSIDE RECORDS SUMMARY | 2022-03-10 21:41 | XMS_ITS | Encounter Summary ---
:1965 Author Organization [facility] Address [address] [place] [address] Care Team Providers Name Role Phone Marcy Alvarenga SOFTWARE TEAM LEADER Primary Care Provider [phone] Encounter Details Date Type Department Care Team Description 12/20/2020 Travel Social History Tobacco Use Types Packs/Day [...] Visit Infectious Disease Lilian Rushing MD [address] [facility], [address] [place] [address] (Wo rk) documented as of this encounter Visit Diagnoses Not on filedocumented in this encounter Care Teams Rehabilitation Counselor Relationship Specialty Start Date End Date Gil-Marcy Santos, PCP - General Family Medicine - Primary 1 11/13/18 SOFTWARE TEAM LEADER Care [address] [facility] [address] [place] [address] documented as of this encounter
--- OUTSIDE RECORDS SUMMARY | 2022-03-10 21:41 | XMS_ITS | Encounter Summary ---
:1965 Author Organization [facility] Address [address] [place] [address] Care Team Providers Name Role Phone Marcy Alvarenga PATIENT SERVICE ASSOCIATE Primary Care Provider [phone] Encounter Details Date Type Department Care Team Description 02/14/2021 Results Only Imaging [facility] - Lilian Rushing MD [facility] [place] Resul ts 130 [facility] [address] [facility], [address] [place] [address] [place], [place] [phone] (Wo rk) Social History Tobacco Use [...] as of this encounter Miscellaneous Notes Result [facility] - Aissatou Iraheta RN - 02/14/2021 1748 EDT See TE, reviewing per ID protocol. esult [facility] - Feng Nguyen RN - 02/14/2021 1742 EDT Message left for patient to call back for results. documented in this encounter Plan of Treatment Upcoming Encounters Date Type Specialty Care Team Description 04/14/2022 Office Visit Infectious Disease Lilian Rushing MD [address] [place] [address], [address] [place], [place] [phone] (Wo rk) documented as of this encounter Procedures Procedure Name Priority Date/Time Associated Diagnosis Comme nts MR LUMBAR SPINE W 02/14/2021 18:37 Result s for this WO CONTRAST EDT procedure are i n the results section. MR HEAD W WO 02/14/2021 17:48 Results for this CONTRAST EDT procedure are i n the results section. documented in this encounter Results MR LUMBAR SPINE W WO CONTRAST (02/14/2021 18:37 EDT) Specimen Narrative [facility] - 02/14/2021 18:37 EDT ? EXAM: MAGNETIC RESONANCE IMAGING/LUMBAR S EX. D/ (165) ? CLINICAL INFORMATION: ? B38.9 DISSEMINATED COCCIDIOIDOMYC OSIS ? PROCEDURE INFORMATION: ? Exam: MR Lumbar Spine Without and With Contrast ? Exam date and time: 02/14/2021 4:5 1 PM ? Age: 55 years old ? Clinical indication: Other: Disse minated coccidioidomycosis; ? Additional info: B38.9 disseminat ed coccidioidomycosis ? TECHNIQUE: ? Imaging protocol: Multiplanar mag netic resonance images of the ? lumbar spine without and with int ravenous contrast. ? Contrast material: GADAVIST; Cont rast volume: 5.5 ml; Contrast ? route: INTRAVENOUS (IV); ? COMPARISON: ? No relevant prior studies availab le. ? FINDINGS: ? Limitations: Motion artifacts. Ti lted right. ? Vertebrae: Bilateral L5 spondylol ysis. Diffuse mid to lower ? lumbar spine osteophytes. Lumbar spine facet hypertrophy. ? Maintained vertebral body heights . ? Spinal cord: Normal signal conus medullaris. No cord ? compression. ??No abnormal enhanc ement. ? L1-L2: ??No significant disc dise ase. No significant spinal canal ? stenosis. No neural foraminal neville nosis. ? L2-L3: L2-L3 broad-based disc pro trusion with minimal central ? canal stenosis and ligamentum fla vum hypertrophy. No ? neuroforaminal narrowing. ? L3-L4: L3-L4 broad-based disc bul ge without spinal stenosis. ? Minimal bilateral ligamentum flav um hypertrophy. Minimal ? bilateral neural foraminal narrow ing. ? L4-L5: Minimal L4-L5 disc space n arrowing. L4-L5 central disc ? protrusion without spinal stenosi s. Mild bilateral ? neuroforaminal narrowing. ? L5-S1: Grade 1-2 anterolisthesis L5-S1 with disc space narrowing ? and disc desiccation. L5-S1 broad -based disc bulge without ? spinal stenosis. Bilateral modera te to severe neuroforaminal ? narrowing. ? Soft tissues: Unremarkable. ? IMPRESSION: ? 1. No evidence of disseminated di sease or abnormal enhancement. ? 2. Bilateral L5 spondylolysis. ? 3. Grade 1-2 anterolisthesis L5-S 1 with disc space narrowing and ? disc desiccation. ? 4. L5-S1 broad-based disc bulge w ithout spinal stenosis. ? Bilateral moderate to severe neur oforaminal narrowing. ? 5. L4-L5 central disc protrusion without spinal stenosis. Mild ? bilateral neuroforaminal narrowin g. ? 6. L3-L4 broad-based disc bulge w ithout spinal stenosis. Minimal ? bilateral ligamentum flavum hyper trophy. Minimal bilateral ? neural foraminal narrowing. ? PAGE 1 ? Nelly d Report ? (CONTINUED) ? 7. L2-L3 broad-based disc protrus ion with minimal central canal ? stenosis and ligamentum flavum hy pertrophy. No neuroforaminal ? narrowing. ? REPORT SIGNED IN OTHER VENDOR SYSTEM 02/14/2021 ?Reported B y: Leo Riddle MD ? CC: ? Transcribed Date/Time: 02/14/2021 (1837) ? Materials Scientist: ? Printed Date/Time: 02/14/2021 (18 37) ? PAGE 2 ? Nelly d Report ? Procedure Note Leo Riddle MD - 02/14/2021 EXAM: MAGNETIC RESONANCE IMAGING/LUMBAR S EX. D/ (9188) CLINICAL INFORMATION: B38.9 DISSEMINATED COCCIDIOIDOMYCOSIS PROCEDURE INFORMATION: Exam: MR Lumbar Spine Without and With Contrast Exam date and time: 02/14/2021 4:51 PM Age: 55 years old Clinical indication: Other: Disseminate d coccidioidomycosis; Additional info: B38.9 disseminated imelda cidioidomycosis TECHNIQUE: Imaging protocol: Multiplanar magnetic resonance images of the lumbar spine without and with intraveno us contrast. Contrast material: GADAVIST; Contrast v olume: 5.5 ml; Contrast route: INTRAVENOUS (IV); COMPARISON: No relevant prior studies available. FINDINGS: Limitations: Motion artifacts. Tilted r ight. Vertebrae: Bilateral L5 spondylolysis. Diffuse mid to lower lumbar spine osteophytes. Lumbar spine facet hypertrophy. Maintained vertebral body heights. Spinal cord: Normal signal conus medull sylvia. No cord compression. No abnormal enhancement. L1-L2: No significant disc disease. No significant spinal canal stenosis. No neural foraminal stenosis. L2-L3: L2-L3 broad-based disc protrusio n with minimal central canal stenosis and ligamentum flavum hy pertrophy. No neuroforaminal narrowing. L3-L4: L3-L4 broad-based disc bulge wit hout spinal stenosis. Minimal bilateral ligamentum flavum hyp ertrophy. Minimal bilateral neural foraminal narrowing. L4-L5: Minimal L4-L5 disc space narrowi ng. L4-L5 central disc protrusion without spinal stenosis. Mil d bilateral neuroforaminal narrowing. L5-S1: Grade 1-2 anterolisthesis L5-S1 with disc space narrowing and disc desiccation. L5-S1 broad-based disc bulge without spinal stenosis. Bilateral moderate to severe neuroforaminal narrowing. Soft tissues: Unremarkable. IMPRESSION: 1. No evidence of disseminated disease or abnormal enhancement. 2. Bilateral L5 spondylolysis. 3. Grade 1-2 anterolisthesis L5-S1 with disc space narrowing and disc desiccation. 4. L5-S1 broad-based disc bulge without spinal stenosis. Bilateral moderate to severe neuroforam inal narrowing. 5. L4-L5 central disc protrusion withou t spinal stenosis. Mild bilateral neuroforaminal narrowing. 6. L3-L4 broad-based disc bulge without spinal stenosis. Minimal bilateral ligamentum flavum hypertrophy . Minimal bilateral neural foraminal narrowing. PAGE 1 Signed Report (CONTINUED) 7. L2-L3 broad-based disc protrusion wi th minimal central canal stenosis and ligamentum flavum hypertro phy. No neuroforaminal narrowing. REPORT SIGNED IN OTHER VENDOR SYSTEM 02/14/2021 Reported By: Leo Riddle MD CC: Transcribed Date/Time: 02/14/2021 (1836 ) Materials Scientist: Printed Date/Time: 02/14/2021 (183) PAGE 2 Signed Report Performing Organization Address City/State/ZIP Code Phon e Number [facility] MR HEAD W WO CONTRAST (02/14/2021 17:48 EDT) Specimen Narrative [facility] - 02/14/2021 17:48 EDT ? EXAM: MAGNETIC RESONANCE IMAGING/BRAIN W/ EX. D/ (1615) ? CLINICAL INFORMATION: ? B38.9 DISSEMINATED COCCIDIOIDOMYC OSIS ? PROCEDURE INFORMATION: ? Exam: MR Head Without and With Co ntrast ? Exam date and time: 02/14/2021 4:1 5 PM ? Age: 55 years old ? Clinical indication: B38.9 dissem inated coccidioidomycosis ? TECHNIQUE: ? Imaging protocol: MR of the head without and with intravenous ? contrast. ? Contrast material: GADAVIST; Cont rast volume: 5.5 ml; Contrast ? route: INTRAVENOUS (IV); ? COMPARISON: ? No relevant prior studies availab le. ? FINDINGS: ? Brain: Age-related involutional c hanges and minimal chronic ? microvascular ischemic disease. N o abnormal parenchymal or ? leptomeningeal enhancement. No ac robin infarct. No mass effect or ? midline shift. No extra-axial col lection. No acute intracranial ? hemorrhage. Basal cisterns are pa tent. ? Cerebral ventricles: Normal. No v entriculomegaly. ? Bones/joints: Unremarkable. ? Paranasal sinuses: Normal as visu alized. No acute sinusitis. ? Mastoid air cells: Normal as visu alized. No mastoid effusion. ? Orbital cavity: Unremarkable. ? Soft tissues: Unremarkable. ? IMPRESSION: ? No evidence of intracranial disse mination. ? REPORT SIGNED IN OTHER VENDOR SYSTEM 02/14/2021 ?Reported B y: Dot Morales MD ? CC: ? Transcribed Date/Time: 02/14/2021 (1748) ? Materials Scientist: HIS.VRAD ? Printed Date/Time: 02/14/2021 (82 48) ? PAGE 1 ? Nelly d Report ? Procedure Note Andrew Chris MD - 02/14/2021 EXAM: MAGNETIC RESONANCE IMAGING/BRAIN W/ EX. D/ (1615) CLINICAL INFORMATION: B38.9 DISSEMINATED COCCIDIOIDOMYCOSIS PROCEDURE INFORMATION: Exam: MR Head Without and With Contrast Exam date and time: 02/14/2021 4:15 PM Age: 55 years old Clinical indication: B38.9 disseminated coccidioidomycosis TECHNIQUE: Imaging protocol: MR of the head withou t and with intravenous contrast. Contrast material: GADAVIST; Contrast v olume: 5.5 ml; Contrast route: INTRAVENOUS (IV); COMPARISON: No relevant prior studies available. FINDINGS: Brain: Age-related involutional changes and minimal chronic microvascular ischemic disease. No abno rmal parenchymal or leptomeningeal enhancement. No acute in farct. No mass effect or midline shift. No extra-axial collectio n. No acute intracranial hemorrhage. Basal cisterns are patent. Cerebral ventricles: Normal. No ventric ulomegaly. Bones/joints: Unremarkable. Paranasal sinuses: Normal as visualized . No acute sinusitis. Mastoid air cells: Normal as visualized . No mastoid effusion. Orbital cavity: Unremarkable. Soft tissues: Unremarkable. IMPRESSION: No evidence of intracranial disseminati on. REPORT SIGNED IN OTHER VENDOR SYSTEM 02/14/2021 Reported By: Dot Morales MD CC: Transcribed Date/Time: 02/14/2021 (9206 ) Materials Scientist: Printed Date/Time: 02/14/2021 (4953) PAGE 1 Signed Report Performing Organization Address City/State/ZIP Code Phon e Number [facility] documented in this encounter Visit Diagnoses Not on filedocumented in this encounter Additional Health Concerns Infection Onset Date Last Indicated Resolved Time MRSAComment: Hx of JTWL-Mlyy-01/23/2020 08/29/2021 08/29/20 21 C. Stoner 12/31/21 documented as of this encounter Care Teams Supervisor Carbon Paper Coating Relationship Specialty Start Date End Date Marcy Alvarenga, PCP - General Family Medicine - Primary 1 11/13/18 PATIENT SERVICE ASSOCIATE Care [address] [place] [phone] documented as of this encounter
--- OUTSIDE RECORDS SUMMARY | 2022-03-10 21:41 | XMS_ITS | Encounter Summary ---
:1965 Author Organization [facility] Address [address] [place] [address] Care Team Providers Name Role Phone Marcy Alvarenga LINEWORKER Primary Care Provider [phone] Reason for Visit Reason Onset Date Comments Appointment Related 06/18/2021 N/S appointment - ne eds to be seen to f/u HIV please schedule with Rohit Rushing MD Encounter Details Date Type Department Care Team Description 06/18/2021 Telephone [facility] - Real Shana, Rain ointment Related (N/S [facility] RN appointment - needs to [address] be seen to [place] [address] please schedule with [phone] Rohit Rushing MD) Social History Tobacco Use Types Packs/Day Years [...] this encounter Miscellaneous Notes Telephone Encounter - Shana Noble RN - 06/18/2021 1343 EDT Patient arrived 1331 for his 1300 appointment and was seen elephone Encounter - Shana Noble RN - 06/18/2021 1320 EDT Reviewed with Luz Maria FERNANDEZ; call to patient to schedule f/u documented in this encounter Plan of Treatment Upcoming Encounters Date Type Specialty Care Team Description 04/14/2022 Office Visit Infectious Disease Lilian Rushing MD [address] [facility] [address] [place] [address] (Wo rk) documented as of this encounter Visit Diagnoses Not on filedocumented in this encounter Care Teams Dub Room Engineer Relationship Specialty Start Date End Date Gil-Marcy Santos, PCP - General Family Medicine - Primary 1 11/13/18 LINEWORKER Care [address] [place] [address] [address] [place] [address] documented as of this encounter
--- OUTSIDE RECORDS SUMMARY | 2022-03-10 21:41 | XMS_ITS | Encounter Summary ---
:1965 Author Organization [facility] Address [address] [place] [address] Care Team Providers Name Role Phone Marcy Alvarenga FISH HATCHERY ASSISTANT Primary Care Provider [phone] Reason for Visit Reason Onset Date Comments Other 01/22/2021 MRI screening form Encounter Details Date Type Department Care Team Description 01/22/2021 Telephone [facility] - Aissatou Iraheta RN Other (MRI screening [facility] Infectious Dise ase [address] form) [address] [place] [address] [place], [place] [id number] Social History Tobacco Use Types Packs/Day Years [...] Telephone Encounter - Aissatou Iraheta RN - 01/22/2021 1149 EDT Zainab at scheduling stated the form need to be reviewed prior to scheduling. [facility] to be [facility] on [facility]/01 with MRI Knee. elephone Encounter - Aissatou Iraheta RN - 01/22/2021 1135 EDT Form completed over the phone, and scanned into chart. Call - [phone] option 1 for dates & times. elephone Encounter - Aissatou Iraheta RN - 01/22/2021 1041 EDT ----- Message from Aissatou Iraheta RN sent at 01/21/2021 9:54 EDT ----- Pt needs MRI screening form completed and scanned into chart. He is has MRI of back and brain ordered, and a knee MRI scheduled on 02/01. Ideally these would all happen at the same time on 02/01/21. Need to make aware. documented in this encounter Plan of Treatment Upcoming Encounters Date Type Specialty Care Team Description 04/14/2022 Office Visit Infectious Disease Lilian Rushing MD [address] [facility], [address] [place] [address] (Wo rk) documented as of this encounter Visit Diagnoses Not on filedocumented in this encounter Care Teams Dairy Feed Worker Relationship Specialty Start Date End Date Herculane[place]-Marcy Santos, PCP - General Family Medicine - Primary 1 11/13/18 FISH HATCHERY ASSISTANT Care [address] [phone] documented as of this encounter
--- OUTSIDE RECORDS SUMMARY | 2022-03-10 21:41 | XMS_ITS | Encounter Summary ---
:1965 Author Organization [facility] Address [address] [place] [address] Care Team Providers Name Role Phone Marcy Alvarenga DEVULCANIZER LOADER Primary Care Provider [phone] Reason for Referral Radiology Services (Routine) - Specialty Report Received Specialty Diagnoses / Procedures Referred By Contact Refer red To Contact Radiology Diagnoses Coccidioidomycosis Lilian Rushing MD Procedures MR KNEE W WO CONTRAST LEFT [address] [facility], [address] [place] [address] Referral ID Status Reason Start Date Expiration Date Visits V isits Requested Authorized [id number] Specialty 05/06/2021 1 1 Report Received Reason for Visit Reason Onset Date Comments Orders (Non Pre-visit) 05/06/2021 Encounter Details Date Type Department Care Team Description 05/06/2021 Telephone [facility] - Aissatou Iraheta RN Orders (Non Pre-visit) [facility] [place] [address] [place] [address] [place] [address] Social History Tobacco Use Types Packs/Day Years [...] Telephone Encounter - Aissatou Iraheta RN - 05/06/2021 1337 EDT Referral updated with this information. elephone Encounter - Aissatou Iraheta RN - 05/06/2021 1334 EDT Pt notified. He said Thursday and wednesdays are best for him and he is out of town 05/24-05/29. Telephone Encounter - Lilian Rushing MD - 05/06/2021 1101 EDT Ordered. Telephone Encounter - Aissatou Iraheta RN - 05/06/2021 0903 EDT Last knee MRI in January. 02/20/21 TE states to repeat knee MRI prior to 06/03/21 appointment. Telephone Encounter - Aissatou Iraheta RN - 05/06/2021 0902 EDT ----- Message from Aissatou Iraheta RN sent at 02/25/2021 16:45 EDT ----- Needs knee MRI before appt. documented in this encounter Plan of Treatment Upcoming Encounters Date Type Specialty Care Team Description 04/14/2022 Office Visit Infectious Disease Lilian Rushing MD 130 [facility] [address] [place] [address] (Wo rk) Scheduled Orders Name Type Priority Associated Diagnoses Order S chedule MR KNEE W WO CONTRAST LEFT Imaging Routine Coccidioidomyc osis Ordered: 05/06/2021 documented as of this encounter Visit Diagnoses Diagnosis Coccidioidomycosis - Primary Coccidioidomycosis, unspecified documented in this encounter Care Teams Packaging Line Operator Relationship Specialty Start Date End Date Gil-Marcy Santos, PCP - General Family Medicine - Primary 1 11/13/18 DEVULCANIZER LOADER Care [address] [place] [address] [address] [place] [address] documented as of this encounter
--- OUTSIDE RECORDS SUMMARY | 2022-03-10 21:41 | XMS_ITS | Encounter Summary ---
:1965 Author Organization [facility] Address [address] [place] [address] Care Team Providers Name Role Phone Marcy Alvarenga FACULTY ADMINISTRATOR Primary Care Provider [phone] Encounter Details Date Type Department Care Team Description 12/20/2020 Results Only [facility] - [facility] Geoff Alvarenga Family Medicine - Be nicol Ruiz, FACULTY ADMINISTRATOR [address] [facility] [address] [place] [address] [place] [phone] (Wo rk) Social History Tobacco Use Types [...] Visit Infectious Disease Lilian Rushing MD 130 [facility], [address] [place], [place] [phone] (Wo rk) documented as of this encounter Procedures Procedure Name Priority Date/Time Associated Comments Diagnosis FTA-ABS - CV Routine 12/20/2020 13:15 Results f or this EST procedure are i n the results section. RAPID PLASMA REAGIN Routine 12/20/2020 13:15 Resu lts for this (RPR) WITH REFLEX, S EST procedu re are in the results section. MISCELLANEOUS TEST, Routine 12/20/2020 13:15 Resu lts for this [facility] EST procedure are i n the results section. documented in this encounter Results FTA-ABS - CV (12/20/2020 13:15 EST) Pathologist Sig nature FTA-ABS - [facility] SEE NOTE [facility] Comment: CENTER LAB RPR SCREEN: ??REACTIVE 1:2 FTA ABS: REACTIVE [facility] [place] [facility] [place] [place] Specimen Narrative [facility] - 021 8:15 EST AOT: 12/27/20 0938: FTABS REFLEX FOR RPR Performing Organization Address City/[facility]/ZIP Code Phon e Number [facility] [address] [place] [address] RAPID PLASMA REAGIN (RPR) WITH REFLEX, S (12/20/2020 13:15 EST) Pathologist Sig nature APID PLASMA REAGIN - Reactive NEG [facility] Specimen Performing Organization Address City/[facility]/ZIP Code Phon e Number [facility] [address] [place] [address] MISCELLANEOUS TEST, [place] (12/20/2020 13:15 EST) MISCELLANEOUS TEST - SEE BELOW () [facility] Comment: [facility] Test ? Result ?? Flag ??Unit ??RefValue ------ Misc C trach/N gonor Amplified RNA ??SOURCE: ?throat ?C. trach, Misc, Amplified ?Negative ? Negative ?RNA ADDITIONAL INFORMATION ------ This report is intended for use in clinical monitoring and management of patients. ??It is not intended for use i n medical-legal applications. This test has been modified from the welding machine operator plasma arc's instructions. ??Its performance characteristics were determined by [facility] in a manner consistent with CLIA requirements. ??This test has not been cleared or appr sylvester by the U.S. Food and Drug Administration. ??SOURCE: ?throat ?N. gonorr, Misc, Amplified ?? Negative ? Negative ?RNA ADDITIONAL INFORMATION ------ This report is intended for use in clinical monitoring and management of patients. ??It is not intended for use i n medical-legal applications. This test has been modified from the welding machine operator plasma arc's instructions. ??Its performance characteristics were determined by [facility] in a manner consistent with CLIA requirements. ??This test has not been cleared or appr sylvester by the U.S. Food and Drug Administration. Test Performed by: [facility] - [address] [address] Technical Publications Manager: Pritesh Mcgee M.D. Ph.D.; CLIA# [id number] Specimen Performing Organization Address City/State/ZIP Code Phon e Number [facility] [address] [place] [address] documented in this encounter Visit Diagnoses Not on filedocumented in this encounter Care Teams Patient Accounts Manager Relationship Specialty Start Date End Date Marcy Alvarenga, PCP - General Family Medicine - Primary 1 11/13/18 FACULTY ADMINISTRATOR Care [address] [place] [phone] documented as of this encounter
--- OUTSIDE RECORDS SUMMARY | 2022-03-10 21:41 | XMS_ITS | Encounter Summary ---
:1965 Author Organization [facility] Address [address] [place] [address] Care Team Providers Name Role Phone Marcy Alvarenga CRIME PREVENTION POLICE OFFICER Primary Care Provider [phone] Encounter Details Date Type Department Care Team Description 09/05/2021 Orders Only [facility] MRI Anabel Tejeda [address] [place] [address] Social History Tobacco Use Types Packs/Day Years [...] Visit Infectious Disease Lilian Rushing MD 130 [facility], [address] [place] [address] (Wo rk) documented as of this encounter Visit Diagnoses Not on filedocumented in this encounter Additional Health Concerns Infection Onset Date Last Indicated Resolved Time MRSAComment: Hx of UILN-Olcm-62/23/2020 08/29/2021 08/29/20 21 C. Stoner 12/31/21 documented as of this encounter Care Teams Health Informatics Instructor Relationship Specialty Start Date End Date Marcy Alvarenga, PCP - General Family Medicine - Primary 1 11/13/18 CRIME PREVENTION POLICE OFFICER Care [address] [place] [phone] documented as of this encounter
--- OUTSIDE RECORDS SUMMARY | 2022-03-10 21:41 | XMS_ITS | Encounter Summary ---
:1965 Author Organization [facility] Address [address] [place] [address] Care Team Providers Name Role Phone Marcy Alvarenga CABIN SERVICE AGENT Primary Care Provider [phone] Encounter Details Date Type Department Care Team Description 01/17/2021 Travel Social History Tobacco Use Types Packs/Day [...] Visit Infectious Disease Lilian Rushing MD [address] [facility], [address] [place] [address] (Wo rk) documented as of this encounter Visit Diagnoses Not on filedocumented in this encounter Care Teams Administrative Court Justice Relationship Specialty Start Date End Date Gil-Marcy Santos, PCP - General Family Medicine - Primary 1 11/13/18 CABIN SERVICE AGENT Care [address] [place] [address] [address] [place] [address] documented as of this encounter
--- OUTSIDE RECORDS SUMMARY | 2022-03-10 21:41 | XMS_ITS | Encounter Summary ---
:1965 Author Organization [facility] Address [address] [place] [address] Care Team Providers Name Role Phone Marcy Alvarenga CARTON FORMING MACHINE OPERATOR Primary Care Provider [phone] Encounter Details Date Type Department Care Team Description 07/03/2021 Documentation Visit [facility] - Lilian Rushing [place] [facility] ase [address] [facility] 130 [facility] [address], [address] [place], [place] [address] [place] [address] [phone] [phone] (Wo rk) Social History Tobacco Use [...] encounter Progress Notes Lilian Rushing MD - 07/03/2021 1117 EDT Had a call with Dr. Adria Dixon from the [facility] [place]. I had spoken to him earlier about this patient - see note from 02/05/21. Repeat MRI (06/02/21) - Read as essentially unchanged (done 4 months after previous MRI, about 5 months into treatment) IMPRESSION: 1. 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 2. Medial and lateral meniscus degeneration and tears, unchanged. 3. Mucoid change of the anterior cruciate ligament, unchanged. Repeat IgG titer (06/18/21) - remains at 1:64 He started Itraconazole on 01/17/21 and has had good levels since then. Last CD4 591. 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 He has developed postinfectious degenerative changes with infection possibly involving the bones/osteomyelitis. I explained that I do not have any experience with this organism. Nevertheless, an arthroplasty procedure would be contraindicated at this point. I would be happy to discuss this with the ID physicians. A radical surgical debridement could be considered, but this was something he was definitely not interested in considering at this stage. Per Dr. Dixon - No urgency to do anything different since he's not getting worse. Sounds like clinically he's slightly better - less warmth of the knee, perhaps a bit less swelling. This isn't failure per se. They do assessments every 4 months for the randomized trial, and the pivotal period was 8 months. They saw clinical improvement at 12 months in most patients. He mentioned that they often do repeat MRI or CT every 4-6 months to monitor for improvement. We will likely have a better idea of what the senior care condition of the knee will be after about 12 months. He advised that following the IgG titer is essentially irrelevant, contrary to what I have read. But he is certainly the expert on Coccidioidomycosis, so I believe him. If Poli's knee starts getting worse, he would recommend trying Posaconazole as itmight be slightly more potent. And if he ends up having surgery, there may be use in doing a plannedpre- and post- surgical course of Amphotericin. If all else fails, perhaps we could get him into the trial for Olorofim. (https://clinicaltrials.gov/ct2/show/AMN71398008) documented in this encounter Plan of Treatment Upcoming Encounters Date Type Specialty Care Team Description 04/14/2022 Office Visit Infectious Disease Lilian Rushing MD [address] [facility] [address] [place] [address] (Wo rk) documented as of this encounter Visit Diagnoses Not on filedocumented in this encounter Care Teams Vending Supervisor Relationship Specialty Start Date End Date Gil-Marcy Santos, PCP - General Family Medicine - Primary 1 11/13/18 CARTON FORMING MACHINE OPERATOR Care [address] [place] [address] 2 [place] [address] documented as of this encounter
--- OUTSIDE RECORDS SUMMARY | 2022-03-10 21:41 | XMS_ITS | Encounter Summary ---
:1965 Author Organization [facility] Address [address] [place] [address] Care Team Providers Name Role Phone Marcy Alvarenga DISPLAYER Primary Care Provider [phone] Reason for Visit Reason Comments Labs Only Encounter Details Date Type Department Care Team Description 12/20/2020 Nurse Only [facility] - Nurse, Cmvc Gonorrh ea of pharynx in male (Primary Dx); [facility] Infectious Infectious Disease Screen ing for viral disease; Disease High risk homosexual behavio r [address] [place], [place] [id number] Social History Tobacco Use Types Packs/Day Years [...] Pressure - - Pulse - - Temperature 36.4 ??C (97.6 ??F) 12/21/2020 0842 EST Respiratory Rate - - Oxygen Saturation [...] documented as of this encounter Progress Notes Aissatou Iraheta, LAUREN - 12/20/2020 1300 EST Infectious Disease Nurse Visit Patient name: Ha Soria Today's date: 12/21/20 HPI: Ha Soria is a 55 y.o. who is following up for test of cure testing after being treated for pharyngeal gonorrhea. He came into the office for a 500mg IM shot of Ceftriaxone on 12/07/20. Recommendations are to do a test of cure 7-14 days after treatment. He is at the 14-day karlee today. Dr. Rushing also requested we do a syphilis screen today. ?? Today he is doing well. No side effects from the IM Ceftriaxone. No new symptoms. ?? Medications Current Outpatient Medications Medication ??? benzonatate (TESSALON) 100 mg capsule ??? cetirizine (ZYRTEC) 10 mg tablet ??? chlorhexidine (HIBICLENS) 4 % liquid ??? Clindamycin Phosphate 1 % swab ??? pfagrxb-rhb-puezi-tenof ALAFEN (GENVOYA) [phone] mg tablet ??? lisinopriL (PRINIVIL) 10 mg tablet ??? tamsulosin (FLOMAX) 0.4 mg capsule No current facility-administered medications for this visit. Allergies No Known Allergies Physical Exam Vital Signs: Temp 36.4 ??C (97.6 ??F) (Temporal) General: NAD Psych: Appropriate ID Pertinent Medications: Genvoya chronically Ceftriaxone 500mg IM x 1 dose: 12/07/20 Labs: 12/03/20: Pharyngeal GC - positive Urine, rectal GC/CT - negative ?RPR Plan/Procedure: 1) Blood drawn via butterfly needle from R Antecubital per protocol, DSD applied, tiger tube(s) sentto lab per order. Patients response tolerated well. 2) Posterior pharynx swabbed with Aptima test kit and sent to lab testing. Pt tolerated procedure well. Aissatou Iraheta RN [facility] Infectious Disease Office: [phone] CC: Lilian Rushing MD documented in this encounter Plan of Treatment Upcoming Encounters Date Type Specialty Care Team Description 04/14/2022 Office Visit Infectious Disease Lilian Rushing MD [address] [place] [address] [address] [place] [address] (Wo rk) Scheduled Orders Name Type Priority Associated Diagnoses Order S chedule N. GONORRHOEAE AND Microbiology Routine Gonorrhea of pharynx O rdered: 12/20/2020 CHLAMYDIA TRACHOMATIS, in male [facility], AMPLIFIED Screening for viral RNA disease [facility] Lab Routine Screening for viral Ord ered: 12/20/2020 disease High risk homosexual behavior documented as of this encounter Visit Diagnoses Diagnosis Gonorrhea of pharynx in male - Primary Gonococcal infection of pharynx Screening for viral disease Special screening examination for unspec ified viral disease High risk homosexual behavior Problems related to high-risk sexual beh avior documented in this encounter Care Teams Payment Processor Relationship Specialty Start Date End Date Gil-Marcy Santos, PCP - General Family Medicine - Primary 1 11/13/18 DISPLAYER Care [address] [place] [address] 2 [place] [address] documented as of this encounter
--- OUTSIDE RECORDS SUMMARY | 2022-03-10 21:41 | XMS_ITS | Encounter Summary ---
:1965 Author Organization [facility] Address [address] [place] [address] Care Team Providers Name Role Phone Marcy Alvarenga FURNACE PROCESS SUPERVISOR Primary Care Provider [phone] Reason for Visit Reason Onset Date Comments Appointment Related 06/20/2021 Encounter Details Date Type Department Care Team Description 06/20/2021 Telephone [facility] [place] Harper RN Appointment Related Family Medicine - [address], [address] [place] [address] Social History Tobacco Use Types [...] this encounter Miscellaneous Notes Telephone Encounter - Argelia Guo - 06/20/2021 1534 EDT LD to call back and schedule f/u appt elephone Encounter - La Harper, RN - 06/20/2021 1247 EDT ----- Message from Marcy Alvarenga APRN sent at 06/20/2021 12:24 EDT ----- Hi will you have Ha schedule a f/u w me in coming months. Thanks ----- Message ----- From: Lilian Rushing MD Sent: 06/19/2021 7:41 EDT To: JUJU Avery - just wanted to flag this H/H result for your next appointment with Poli. Looks like it's been dropping for awhile. Thanks! documented in this encounter Plan of Treatment Upcoming Encounters Date Type Specialty Care Team Description 04/14/2022 Office Visit Infectious Disease Lilian Rushing MD [address] [place] [address] [address] [place] [address] (Wo rk) documented as of this encounter Visit Diagnoses Not on filedocumented in this encounter Care Teams Student Services Counselor Relationship Specialty Start Date End Date Marcy Alvarenga, PCP - General Family Medicine - Primary 1 11/13/18 FURNACE PROCESS SUPERVISOR Care [address] [place] [address] 2 [place] [address] documented as of this encounter
--- OUTSIDE RECORDS SUMMARY | 2022-03-10 21:41 | XMS_ITS | Encounter Summary ---
:1965 Author Organization [facility] Address [address] [place] [address] Care Team Providers Name Role Phone Marcy Alvarenga GUNITE MIXER Primary Care Provider [phone] Reason for Visit Reason Onset Date Comments Results 01/09/2021 Encounter Details Date Type Department Care Team Description 01/09/2021 Telephone [facility] Lilian Rushing MD Results Infectious Disease 130 [facility] 130 [facility] [address] [place], [place] [address] [place] [address] (Wo rk) Social History Tobacco Use [...] Telephone Encounter - Lilian Rushing MD - 01/10/2021 1052 EDT Received notes from Mekhi. From Dr. Laura's note 12/24/20 - he had a cortisone injection in the L kneein the fall of 2018 that only helped slightly for a short period of time. He has had 7 procedures onthe L knee, starting in 2008. Exam - 1+ effusion, knee ROM 18-80 degrees. Due to the history, Dr. Laura did an aspiration and some peripheral labs. He aspirated 21 mL sim,hazy fluid. ESR 20 CRP 7.2 (mg/L) WBC count 7.65 L knee fluid - 10,840 WBCs (36% PMNs, 13% Lymphs, 51% Monocytes) L knee fluid culture: 12/24/20 - no growth (bacterial culture) - GS with many WBCs, no bacteria Fungal culture - mold, sent to [facility] for ID elephone Encounter - Aissatou Iraheta RN - 01/10/2021 1001 EDT Notes from Initial consult 04/2019: Coccidiodomycosis - 2007. Has scar on posterior L knee. Removed Wayne's cyst but ended up being Cocci. Stopped suppression in 2009 because he went [place] 3 [place] and the medication wasn't allowed in the country he went to. When he came back in 2012, he had to have 3 polyps removed because it came back. Only other note I saw in old records was a referral to ortho for Cocci because pt was having pain and redness in his left knee and was worried the cocci infection had returned. elephone Encounter - Aissatou Iraheta RN - 01/09/2021 1120 EDT Pt notified. Appt booked for 01/17/21 elephone Encounter - Lilian Rushing MD - 01/09/2021 1059 EDT Got a call from Mekhi from Dr. Woods at [facility]. He did a procedure on Ha's knee on 12/24/20 and the culture is now growing mold. The isolate has been sent to [facility] and on to [facility] for identification. Verbal report of Coccidioidomycosis, but Epic chart just says mold. We will need [facility] final identification before making any other decisions, but I would like to see him in clinic next week. Thanks! documented in this encounter Plan of Treatment Upcoming Encounters Date Type Specialty Care Team Description 04/14/2022 Office Visit Infectious Disease Lilian Rushing MD [address] [place] [address] [address] [place] [address] (Wo rk) documented as of this encounter Visit Diagnoses Not on filedocumented in this encounter Care Teams Machine Cloth Measurer Relationship Specialty Start Date End Date Gil-Marcy Santos, PCP - General Family Medicine - Primary 1 11/13/18 GUNITE MIXER Care [address] [place] [address] 2 [place] [address] documented as of this encounter
--- OUTSIDE RECORDS SUMMARY | 2022-03-10 21:41 | XMS_ITS | Encounter Summary ---
:1965 Author Organization [facility] Address [address] [place] [address] Care Team Providers Name Role Phone Marcy Alvarenga MICROPHONE BOOM OPERATOR Primary Care Provider [phone] Reason for Visit Reason Onset Date Comments Prior Auth, Medication 09/09/2021 Encounter Details Date Type Department Care Team Description 09/09/2021 Telephone [facility] - Aissatou Iraheta RN Prior Auth, Medication [facility] Infectious Dise ase [address] [place] [address] [place], [place] [id number] Social History Tobacco Use Types Packs/Day Years [...] Telephone Encounter - Aissatou Iraheta RN - 09/10/2021 1233 EST PA has been approved. Left message for Ramirez in [employer] [facility] elephone Encounter - Aissatou Iraheta RN - 09/09/2021 1657 EST PA for Posaconazole 100mg Submitted via cover [employer]. documented in this encounter Plan of Treatment Upcoming Encounters Date Type Specialty Care Team Description 04/14/2022 Office Visit Infectious Disease Lilian Rushing MD [address] [place] [address] [address] [place], [place] [address] (Wo rk) documented as of this encounter Visit Diagnoses Not on filedocumented in this encounter Additional Health Concerns Infection Onset Date Last Indicated Resolved Time MRSAComment: Hx of NRHQ-Nmtc-51/23/2020 08/29/2021 08/29/20 21 C. Stoner 12/31/21 documented as of this encounter Care Teams Pediatric Oncologist Relationship Specialty Start Date End Date Gil-Marcy Santos, PCP - General Family Medicine - Primary 1 11/13/18 MICROPHONE BOOM OPERATOR Care [address] [place] [address] 2 [place] [phone] documented as of this encounter
--- OUTSIDE RECORDS SUMMARY | 2022-03-10 21:41 | XMS_ITS | Encounter Summary ---
:1965 Author Organization [facility] Address [address] [place] [address] Care Team Providers Name Role Phone Marcy Alvarenga FOREIGN LANGUAGE TEACHER Primary Care Provider [phone] Reason for Referral Radiology Services (Routine/Next Available) - Specialty Report Received Specialty Diagnoses / Procedures Referred By Contact Refer red To Contact Diagnoses Chronic pain of left knee Chaitanya Easton MD Procedures XR KNEE RIGHT 3 [address] [place] [address] Referral ID Status Reason Start Date Expiration Date Visits V isits Requested Authorized [id number] Specialty 06/14/2021 1 1 Report Received Reason for Visit Radiology Services (Routine/Next Available) - Specialty Report Received Specialty Diagnoses / Procedures Referred By Contact Refer red To Contact Diagnoses Chronic pain of left knee Chaitanya Easton MD Procedures XR KNEE RIGHT 3 [address] [place] [address] Referral ID Status Reason Start Date Expiration Date Visits V isits Requested Authorized [id number] Specialty 06/14/2021 1 1 Report Received Encounter Details Date Type Department Care Team Description 06/18/2021 Hospital Encounter [facility] Xray Chronic pain of left [address] [place] [address] Social History Tobacco Use Types Packs/Day Years [...] 3 04/24 mg tablet MOUTH EVERY DAY itraconazole (SPORANOX) Take 2 Caps by mouth [...] Office Visit Infectious Disease Lilian Rushing MD [address] [place] [address], [address] [place] [address] (Wo rk) documented as of this encounter Procedures Procedure Name Priority Date/Time Associated Diagnosis Comme nts XR KNEE RIGHT 3 Routine 06/18/2021 9:30 EDT Chronic pain of le ft Results for this VIEWS knee procedure are i n the results section. documented in this encounter Results XR KNEE RIGHT 3 VIEWS (06/18/2021 9:30 EDT) Anatomical Region Laterality Modality Lower Extremities Right Computed Radiography Specimen Impressions [facility] - 06/18/2021 11:48 EDT FINDINGS / IMPRESSION: * ??Left knee 4 views: Moderate joint ef fusion. Tricompartmental degenerative changes which are moderate to severe. Osteopenia. * ??Right knee 3 views: No significant o steophyte formation. Osteopenia. Narrative [facility] - 06/18/2021 11:48 EDT EXAM/TECHNIQUE: 06/18/2021 9:00 AM ??XR KNEE LEFT 4 OR MORE VIEWS, XR KNEE RIGHT 3 VIEWS 4 (accession [id number]), 3 (accession [id number]) views ?? HISTORY: ??left knee pain COMPARISON: None. Procedure Note Faustino Pereira MD - 06/18/2021 EXAM/TECHNIQUE: 06/18/2021 9:00 AM XR KNE E LEFT 4 OR MORE VIEWS, XR KNEE RIGHT 3 VIEWS 4 (accession [id number]), 3 (accession [id number]) views HISTORY: left knee pain COMPARISON: None. IMPRESSION FINDINGS / IMPRESSION: * Left knee 4 views: Moderate joint effu leigh ann. Tricompartmental degenerative changes which are moderate to severe. Osteopenia. * Right knee 3 views: No significant ost eophyte formation. Osteopenia. Performing Organization Address City/State/ZIP Code Phon e Number [facility] documented in this encounter Visit Diagnoses Diagnosis Chronic pain of left knee Pain in joint, lower leg documented in this encounter Care Teams Netezza Developer Relationship Specialty Start Date End Date Gil-Marcy Santos, PCP - General Family Medicine - Primary 1 11/13/18 FOREIGN LANGUAGE TEACHER Care [address] [place] [address] documented as of this encounter
--- OUTSIDE RECORDS SUMMARY | 2022-03-10 21:41 | XMS_ITS | Encounter Summary ---
:1965 Author Organization [facility] Address [address] [place] [address] Care Team Providers Name Role Phone Marcy Alvarenga HOURLY SHIFT Primary Care Provider Reason for Referral Radiology Services (Routine/Next Available) - Closed Specialty Diagnoses / Procedures Referred By Contact Refer red To Contact Diagnoses Chronic pain of left knee Chaiatnya Easton MD Procedures XR KNEE RIGHT 3 [address] [place] [address] Referral ID Status Reason Start Date Expiration Date Visits Requ ested Visits Authorized [id number] Closed 03/27/2021 1 1 adiology Services (Routine/Next Available) - Closed Specialty Diagnoses / Procedures Referred By Contact Refer red To Contact Diagnoses Chronic pain of left knee Chaitanya Easton MD Procedures XR KNEE LEFT 4 OR MORE VIEWS [address] [place] [address] Referral ID Status Reason Start Date Expiration Date Visits Requ ested Visits Authorized [id number] Closed 03/27/2021 1 1 Reason for Visit Reason Onset Date Comments Knee Pain 03/27/2021 Encounter Details Date Type Department Care Team Description 03/27/2021 Orders Only [facility] Easton ain of left Total Joint Program - Frankie Tavares knee (Primary Dx) [address] [place], [place] [facility] [address] [phone] Social History Tobacco Use Types Packs/Day Years [...] Visit Infectious Disease Lilian Rushing MD [address] [place] [address] [address] [place] [address] (Wo rk) Scheduled Orders Name Type Priority Associated Diagnoses Order S chedule XR KNEE LEFT 4 OR Imaging Routine Chronic pain of left kn ee Expected: 03/27/2021 MORE VIEWS (Approximate) XR KNEE RIGHT 3 Imaging Routine Chronic pain of left knee Expected: 03/27/2021 VIEWS (Approximate) documented as of this encounter Visit Diagnoses Diagnosis Chronic pain of left knee - Primary Pain in joint, lower leg documented in this encounter Care Teams Traditional Chinese Herbalist Relationship Specialty Start Date End Date Gil-Marcy Santos, PCP - General Family Medicine - Primary 1 11/13/18 HOURLY SHIFT Care [address] [place] [address] [address] [place] [address] documented as of this encounter
--- OUTSIDE RECORDS SUMMARY | 2022-03-10 21:41 | XMS_ITS | Encounter Summary ---
:1965 Author Organization [facility] Address [address] [place] [address] Care Team Providers Name Role Phone Marcy Alvarenga GASTROENTEROLOGY MANAGER Primary Care Provider [phone] Reason for Visit Reason Onset Date Comments Other 02/05/2021 patient care Encounter Details Date Type Department Care Team Description 02/05/2021 Telephone [facility] - Jennie Rushing MD Other (patient care) [facility] [address] [facility] 130 [facility] [address], [address] [place] [address] [place], [place] [phone] [phone] (Wo rk) Social History Tobacco Use [...] Telephone Encounter - Lilian Rushing MD - 02/08/2021 1150 EDT Called and spoke to Poli. Relayed MRI results and conversation with Dr. Laura as well as the likely referral to [facility]. Also relayed my conversation with the [facility] [place]. They recommended treating with antifungals and repeating an MRI of the knee in 4 months. At that point, we will have a better idea of the longer term condition of the knee and what debridement may be necessary. No indication for urgent surgical management at this time as long as he's functioning ok on the knee. I did send some deidentified views of the MRI images for them to look at as well. They also mentioned an experimental antifungal that would be fungicidal to Cocci rather than the azoles being fungistatic. It is still in studies, but it is called olorofim. This, if it gets approved, could be a good option for him in the future. Telephone Encounter - Adriana Cheng - 02/07/2021 1537 EDT Patient is scheduled for 02/14/21 for both mri test. elephone Encounter - Lilian Rushing MD - 02/06/2021 1011 EDT It looks like he had his knee MRI done, but not the L spine or brain. Can we call to see when those are scheduled for please? elephone Encounter - Radha Campbell - 02/05/[address] Reginaldo Laura called wanting to talk in regards to patient. Stated it was not an emergency and he did not need to talk with the proposition player physician, but would like to talk. He will be operating tomorrowand will try to contact you in between patients, or he will be in office on and he said youcan reach him on his cell phone at [phone] signed by Radha Campbell at 02/05/2021 16:13 EDTdocumented in this encounter Plan of Treatment Upcoming Encounters Date Type Specialty Care Team Description 04/14/2022 Office Visit Infectious Disease Lilian Rushing MD [address] [place] [address], [address] [place] [address] (Wo rk) documented as of this encounter Visit Diagnoses Not on filedocumented in this encounter Care Teams Toe Lining Closer Relationship Specialty Start Date End Date Gil-Marcy Santos, PCP - General Family Medicine - Primary 1 11/13/18 GASTROENTEROLOGY MANAGER Care [address] [place] [address] [address] [place] [address] documented as of this encounter
--- OUTSIDE RECORDS SUMMARY | 2022-03-10 21:42 | XMS_ITS | Encounter Summary ---
:1965 Author Organization [facility] Address [address] [place] [address] Care Team Providers Name Role Phone Marcy Alvarenga COMMERCIAL PEST CONTROL REPRESENTATIVE Primary Care Provider [phone] Reason for Visit Reason Onset Date Comments Medications Refill 04/18/2020 Encounter Details Date Type Department Care Team Description 04/18/2020 Telephone [facility] Lilian Rushing MD Medications Refill Infectious Disease [address] [facility] [address] [facility]-, [address] [place], [place] [address] [place] [address] [phone] (Wo rk) Social History Tobacco Use [...] on file documented as of this encounter Ordered Prescriptions Prescription Sig Dispensed Refills Start Date End Date lisinopriL (PRINIVIL) 10 Take 1 Tab by mouth 90 Tab 3 04/24/2021 mg tabletIndications: daily. hypertension tamsulosin (FLOMAX) 0.4 mg Take 1 Cap by mouth 90 Cap 3 04/18/2020 05/01/2021 capsule daily. uihqkni-rxy-iejzh-tenof Take 1 Tab by mouth 90 Tab 1 06/04/2020 ALAFEN (GENVOYA) daily for 90 days. [phone] mg tabletIndications: HIV infection documented in this encounter Miscellaneous Notes Telephone Encounter - Aissatou Iraheta RN - 04/19/2020 0930 EDT Left detailed message with the below information. I advised he call PCP at [phone] to set up an appt. elephone Encounter - Marcy Alvarenga APRN - 04/18/2020 1159 EDT Please notify pt that Dr Rushing is his ID doctor only now. I am assigned as PCP and refill other medications not related to HIV. He should schedule an appt in the coming months for est care. Thanks elephone Encounter - Aissatou Iraheta RN - 04/18/2020 1129 EDT Genvoya refilled per protocol. Lisinopril and tamsulosin should be managed by PCP. I will forward the request. elephone Encounter - Shefali Hamm - 04/18/2020 0921 EDT Patient calling for refills on Genvoya; tamsulosin & Lisinopril. Been out of the genvoya for a couple of days. I asked if Dr. Rushing usually prescribes all of those or does PCP. He says Kristan does them all. He said they should go to [facility] in [place]. If Dr. Rushing doesn't rx all these can you call patient to discuss he may be a little confused about his meds. [phone] signed by Shefali Hamm at 04/18/2020 9:28 EDTdocumented in this encounter Plan of Treatment Upcoming Encounters Date Type Specialty Care Team Description 04/14/2022 Office Visit Infectious Disease Lilian Rushing MD [address] [place] [address], [address] [place], [place] [phone] (Wo rk) documented as of this encounter Visit Diagnoses Not on filedocumented in this encounter Discontinued Medications Medication Sig Discontinue Reason Start Date End Date ryrzrjx-jdh-avfaj-tenof Take 1 Tab by Reorder 10/17/2019 ALAFEN (GENVOYA) mouth daily for 90 [id number] mg days. tabletIndications: HIV infection tamsulosin (FLOMAX) 0.4 mg Take 1 Cap by Reorder 02/15/2020 04/18/2020 capsule mouth daily. lisinopril (PRINIVIL) 10 Take 10 mg by Reorder mg tabletIndications: mouth daily. hypertension documented as of this encounter Care Teams Levelman Relationship Specialty Start Date End Date Marcy Alvarenga, PCP - General Family Medicine - Primary 1 11/13/18 COMMERCIAL PEST CONTROL REPRESENTATIVE Care [address] [place] [address] [address] [place] [address] documented as of this encounter
--- OUTSIDE RECORDS SUMMARY | 2022-03-10 21:42 | XMS_ITS | Encounter Summary ---
:1965 Author Organization [facility] Address [address] [place] [address] Care Team Providers Name Role Phone Marcy Alvarenga DISPATCHER BUS AND TROLLEY Primary Care Provider Reason for Visit Reason Comments HIV Infection Encounter Details Date Type Department Care Team Description 03/05/2020 Telemedicine [facility] - Lilian Rushing Asy mptomatic HIV infection ([facility]) (Primary Dx); [facility] Infectious MD Encounter for immunization; Disease [address] [facility] Chronic knee pain, unspecified lateralit y; [address] [facility], [address] Medication [place] [address] [place] [phone] Social History Tobacco Use Types Packs/Day [...] on file documented as of this encounter Progress Notes Lilian Rushing MD - 03/05/2020 1100 EDT FOLLOW-UP VISIT NOTE HIV/AIDS The concept of ???Telemedicine?? has been described to the patient.? Patient has been informed of the anticipated benefits and possible risks.? Patient understands the information provided regarding telemedicine, has had the opportunity to ask questions about this information, and all questions have been answered to patient???s satisfaction. Patient consents for the use of telemedicine in his/her medical care and authorizes the transmission of any relevant medical information to providers and theirstaff involved in patient???s medical or mental health care. TELEMEDICINE VIDEO VISIT Today's visit was provided through telemedicine video conferencing: The location of the patient : Home The location of the provider: Clinic Exam Room The following staff and their role did participate in today's encounter visit: Lilian Rushing MD CC: Ha Soria is a 54 y.o. for his follow-up visit. HPI: ??Patient is being seen today for onging care of HIV. Currently on Genvoya and tolorating it well. HIV Dx in 11/2014. Stribild started then. Switched to Genvoya 05/2016 due to increasing creatinine.Remote h/o coccidioidomycosis. He move to [facility] from [place] in the summer of 2018 to take care of his aging parents, but is planning on moving at some point. 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 He is now set up with [facility] for his HIV meds. At his last visit on 12/05/19 he was having knee pain from bone on bone osteoarthritis. I cleared himfor a steroid injection and disussed this with ortho. Otherwise he was doing ok. Wasn't sexually active and had no recurrence of gonorrhea post reatment. We updated his vaccines and he received a Shingrix, MCV4 and PPSV23. He said he is pretty much in [employer] 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 He is getting stir crazy. He is flying to [facility] - a lot of his stuff was at his brother's house. He's putting a lot of stuff in storage.He also has 2 interviews down there for jobs. He got another opinion on his knee - meniscus is gone, no soft tissue. They said the steroid injection would be helpful but would gradually wear off. Eventually he'll need a knee replacement. He would rather just deal with it until he needs the replacement. No sexual activity since I saw him last. Genvoya going fine. Just got a 90 day refill a few days ago. HIV diagnosis history: Date of Dx - 11/2014 Risk Factor(s) - MSM Tobi CD4 count - unknown OI History - none known Resistance History - unknown Current Meds and Medication History - Nicole Lozada (2014) [id number] - unknown Hep A - Immune per records Hep B - SAb+ Hep C Ab - neg (06/23/19) RPR - nonreactive (09/01/19) REVIEW OF SYSTEMS: 10-point review of systems is negative except as noted in the HPI. Medical/Surgical/Social/Family History reviewed - see appropriate section of EMR. PHYSICAL EXAMINATION Vital Signs: No data found. General appearance: alert, conversant, well-appearing. HEENT: no temporal wasting, anicteric sclera, normal conjunctiva, MMM Pulm: No cough, no apparent increased work of breathing MSK: unremarkable. Psych: appropriate LABS Date CD4(%) VL 11/02/15 503(235) - 05/07/16 - Undetectable 11/19/16 439(24%) - 09/16/17 389(34%) Undetectable 04/28/19 530(30%) - 09/01/19 403(27%) Undetectable 12/05/19 - <20 (but detected) IMPRESSION AND PLAN: 54 y/o M with HIV and h/o coccidioidomycosis here for follow up care. 1) Knee osteoarthritis His coccidioidomycosis was many years ago, and he was adequately treated. It is certainly known to cause joint damage that can lead to early OA down the road. There's no evidence that he has persistentinfection, and his CD4 has been fine. He can get a steroid injection, but he would prefer to avoid this if possible. He'll just wait until he needs the replacement. 2) HIV - Currently on Genvoya, no issues - Last CD4 count 420(27%) - Last HIV viral load <20 but detected - Sexual activity: not sexually active - G/C (postive 06/23/19) - RPR (nonreactive 09/01/19) - CD4 Q3-6 months (last 09/01/19) - VL Q3-6 months (last 12/05/19) - CMP Q3-6 months (last 09/01/19) 3) Health maintenance - Lipids Q6-12 months (last 12/05/19) - A1C Q6-12 months (last 12/05/19) - UA Q6 months (if on TAF/TDF) (last 05/05/19) - Anal cancer screening: negative 2014 4) Immunizations MMR - 05/30/19: Mumps IgG pos, [...] indicated Hib - not indicated Tdap - Last one unknown Shingrix - 12/15/19, due for #2 Other Orders Placed This Visit Procedures ??? Shingrix (Zoster Vaccine, Recombinant) IM ??? Tdap Vaccine Greater Than or Equal to 7yo IM ??? Complete Blood Count and Differential ??? HIV 1 RNA Quantitation ??? Immunodeficiency Panel ??? Basic Metabolic Panel (BMP) ? ? Urine Chemical (Dip) & Sediment (Micro) without reflex to culture Lilian Rushing MD, MPH [facility] Infectious Disease Office: [phone] CC: referring provider, PCP?? documented in this encounter Miscellaneous Notes Addendum Note - Aissatou Morales RN - 03/05/2020 1100 EDT Addended by: AISSATOU MORALES on: 03/07/2020 12:55 Modules accepted: Orders documented in this encounter Plan of Treatment Upcoming Encounters Date Type Specialty Care Team Description 04/14/2022 Office Visit Infectious Disease Lilian Rushing MD [address] [facility], [address] [place] [address] (Wo rk) Scheduled Orders Name Type Priority Associated Diagnoses Order S chedule COMPLETE BLOOD COUNT AND Lab Routine Asymptomatic HIV Expected: 03/06/2020 DIFFERENTIAL infection (HCC-C MS) (Approximate), Medication monitoring s: 03/05/2021 encounter HIV 1 RNA QUANTITATION Lab Routine Asymptomatic HIV E xpected: 03/06/2020 infection (HCC-C MS) (Approximate), Medication monitoring s: 03/05/2021 encounter URINE CHEMICAL (DIP) & Lab Routine Asymptomatic HIV E xpected: 03/06/2020 SEDIMENT (MICRO) WITHOUT infecti on ([facility]) (Approximate), REFLEX TO CULTURE Medication monitoring E xpires: 03/05/2021 encounter documented as of this encounter Results (ABNORMAL) BASIC METABOLIC PANEL (BMP) (03/07/2020 13:30 EDT) BUN - [facility] 31 (H) 10 - 26 mg/dL [facility] CALCIUM - [facility] 9.6 8.5 - 10.5 [facility] mg/dL [facility] Chloride 99 96 - 110 [facility] mmol/L [facility] CO2 Total 27 21 - 32 mEq/L [facility] CREATININE 1.03 0.66 - 1.25 [facility] mg/dL [facility] eGFR >60 [facility] Comment: [facility] Chronic renal impairment is defined as GFR <60 Multiply result by 1.210 for patients . Anion Gap 8 0 - 18 [facility] GLUCOSE - [facility] 103 (H) 70 - 100 mg/dL [facility] Potassium 4.5 3.5 - 5.0 [facility] mEq/L [facility] Sodium 134 (L) 136 - 145 [facility] mEq/L [facility] Specimen Blood - Venous blood (substance) Performing Organization Address City/State/ZIP Code Phon e Number [facility] [address] [place] [address] [facility] (ABNORMAL) IMMUNODEFICIENCY PANEL (03/07/2020 13:30 EDT) % CD3 75 62 - 87 % [facility] % CD4 33 (A) 35 - 63 % [facility] % CD8 37 (A) 10 - 35 % [facility] Absolute CD4 728 329-1,427 [facility] Comment: Cells/uL [facility] Test performed or referred by The [address] [address] Specimen Blood - Venous blood (substance) Performing Organization Address City/State/ZIP Code Phon e Number [facility] [address] [place] [address] [facility] documented in this encounter Visit Diagnoses Diagnosis Asymptomatic HIV infection (HCC) - Prima ry Asymptomatic human immunodeficiency viru s (HIV) infection status Encounter for immunization Need for other specified prophylactic va ccination against single bacterial disease Chronic knee pain, unspecified lateralit y Medication monitoring encounter Encounter for therapeutic drug monitorin g documented in this encounter Orders Immunization/Injection Count Last Ordered Date First O rdered Date SHINGRIX (ZOSTER VACCINE, RECOMBINANT) IM 1 2019 TDAP VACCINE =>7YO IM 1 03/05/2020 documented in this encounter Care Teams Hvac Operations Technician Relationship Specialty Start Date End Date Gil-Marcy Santos, PCP - General Family Medicine - Primary 1 11/13/18 DISPATCHER BUS AND TROLLEY Care [address] [place] [phone] documented as of this encounter
--- OUTSIDE RECORDS SUMMARY | 2022-03-10 21:42 | XMS_ITS | Encounter Summary ---
:1965 Author Organization [facility] Address [address] [place] [address] Care Team Providers Name Role Phone Marcy Alvarenga TIP OUT WORKER Primary Care Provider [phone] Reason for Visit Reason Onset Date Comments Medications Refill 02/14/2020 Encounter Details Date Type Department Care Team Description 02/14/2020 Telephone [facility] Lilian Rushing MD Medications Refill Infectious Disease [address] [facility] [address] [facility] [place] [address] [place] [phone] (Wo rk) Social History Tobacco Use [...] on file documented as of this encounter Miscellaneous Notes Telephone Encounter - Marcy Alvarenga APRN - 02/15/2020 1323 EDT Sent to [facility]- devin elephone Encounter - Aissatou Iraheta RN - 02/15/2020 0832 EDT This is not an ID medication, forwarding to PCP for follow up. elephone Encounter - Flaquita Do - 02/14/2020 1533 EDT tamsulosin documented in this encounter Plan of Treatment Upcoming Encounters Date Type Specialty Care Team Description 04/14/2022 Office Visit Infectious Disease Lilian Rushing MD [address] [place] [address] [address] [place] [address] (Wo rk) documented as of this encounter Visit Diagnoses Not on filedocumented in this encounter Care Teams Host/Hostess Ground Relationship Specialty Start Date End Date Gil-Marcy Santos, PCP - General Family Medicine - Primary 1 11/13/18 TIP OUT WORKER Care [address] [place] [address] [address] [place] [address] documented as of this encounter
--- OUTSIDE RECORDS SUMMARY | 2022-03-10 21:42 | XMS_ITS | Encounter Summary ---
:1965 Author Organization [facility] Address [address] [place] [address] Care Team Providers Name Role Phone Marcy Alvarenga MEDICAL OFFICE COORDINATOR Primary Care Provider [phone] Encounter Details Date Type Department Care Team Description 12/05/[address] [facility] - [facility] Cht Panel Coord critical access hospital, Family Medicine - Be in [place] [address], [address] [place] [address] Social History Tobacco Use Types [...] documented as of this encounter Progress Notes Ny Diaz - 12/05/2019 1158 EST Panel Management Topic Date Due ??? Chart Review Care Gap Score Reviewed, no gastro records found documented in this encounter Plan of Treatment Upcoming Encounters Date Type Specialty Care Team Description 04/14/2022 Office Visit Infectious Disease Lilian Rushing MD [address] [place] [address], [address] [place] [address] (Wo rk) documented as of this encounter Visit Diagnoses Not on filedocumented in this encounter Care Teams Radiotelephone Technical Operator Relationship Specialty Start Date End Date Marcy Alvarenga, PCP - General Family Medicine - Primary 1 11/13/18 MEDICAL OFFICE COORDINATOR Care [address] [place] [phone] documented as of this encounter
--- OUTSIDE RECORDS SUMMARY | 2022-03-10 21:42 | XMS_ITS | Encounter Summary ---
:1965 Author Organization [facility] Address [address] [place] [address] Care Team Providers Name Role Phone Marcy Alvarenga RADIO PROGRAM CHECKER Primary Care Provider [phone] Reason for Visit Reason Onset Date Comments Medications Refill 09/26/2019 Encounter Details Date Type Department Care Team Description 09/26/2019 Telephone [facility] Lilian Rushing MD Medications Refill Infectious Disease 130 [facility] 130 [facility]-, [address] [place] [address] [place] [phone] (Wo rk) Social History Tobacco Use [...] Sig Dispensed Refills Start Date End Date jfjxuyy-zpw-jqgmy-tenof Take 1 Tab by mouth 90 Tab 1 12/201810/17/2019 ALAFEN (GENVOYA) daily for 90 days. [id number] mg tabletIndications: HIV infection documented in this encounter Miscellaneous Notes Telephone Encounter - Aissatou Iraheta RN - 09/29/2019 1609 EST Confirmed with Aissatou at [facility] specialty pharmacy they received the rx and its in the process of being verified by the pharmacist for shipment. elephone Encounter - Aissatou Iraheta RN - 09/28/2019 1319 EST rx manually faxed this morning. elephone Encounter - Aissatou Iraheta RN - 09/27/2019 1653 EST Called customer service line for [facility] specialty pharmacy. They gave me a fax of [phone] to send new rx;s too. Rx created and printed for signature. This pharmacy does not accept e- prescriptions. To JL to sign elephone Encounter - Aissatou Iraheta RN - 09/27/2019 1632 EST Pt called- he cant find the phone number right now (no Internet). He will call back and leave a message once he can get it. The paperwork he is speaking of is the [employer] application and also [place] Medicaid insurance. His insurance from [place] runs out at the end of the month. I said I will try and figure the pharmacy out in the meantime and get the paperwork together so we can start working on it. elephone Encounter - Flaquita Do - 09/26/2019 1501 EST [facility] specialty phamracy-pt states that he needs a new script sent in for this Genvoya. He also would like a call about his insurance paperwork as well. He states that he was instructed to call in Dec about it to get the process going and that Aissatou would know what he is talking about. documented in this encounter Plan of Treatment Upcoming Encounters Date Type Specialty Care Team Description 04/14/2022 Office Visit Infectious Disease Lilian Rushing MD [address] [facility] [address] [place] [address] (Wo rk) documented as of this encounter Visit Diagnoses Not on filedocumented in this encounter Discontinued Medications Medication Sig Discontinue Reason Start Date End Date imqnmya-nor-oxuxj-tenof Take by mouth Reorder 12/2018 ALAFEN (GENVOYA) daily. [id number] mg tabletIndications: HIV infection documented as of this encounter Care Teams Senior Net Engineer Relationship Specialty Start Date End Date Marcy Alvarenga, PCP - General Family Medicine - Primary 1 11/13/18 RADIO PROGRAM CHECKER Care [address] [place] [address] [address] [place] [address] documented as of this encounter
--- OUTSIDE RECORDS SUMMARY | 2022-03-10 21:42 | XMS_ITS | Encounter Summary ---
:1965 Author Organization [facility] Address [address] [place] [address] Care Team Providers Name Role Phone Marcy Alvarenga GROUP CARE WORKER Primary Care Provider [phone] Encounter Details Date Type Department Care Team Description 11/26/2020 Results Only [facility] Lilian Rushing MD Infectious Disease [address], [address] [place], [place] [address] [place] [phone] (Wo rk) Social History Tobacco Use Types [...] Infectious Disease Lilian Rushing MD 130 [facility], [address] [place] [address] (Wo rk) documented as of this encounter Procedures Procedure Name Priority Date/Time Associated Comments Diagnosis URINALYSIS - [facility] Routine 11/26/2020 14:07 Result s for this EST procedure are i n the results section. COMPLETE BLOOD COUNT Routine 11/26/2020 14:07 Res ults for this WITH DIFFERENTIAL EST procedure are in (AUTO) the results section. T CELL SUBSETS Routine 11/26/2020 14:07 Results f or this EST procedure are i n the results section. HIV 1 RNA QUANTITATION Routine 11/26/2020 14:07 R esults for this EST procedure are i n the results section. COMPREHENSIVE Routine 11/26/2020 14:07 Results fo r this METABOLIC PANEL (CMP) EST proced ure are in the results section. documented in this encounter Results (ABNORMAL) IMMUNODEFICIENCY PANEL (11/26/2020 14:07 EST) [facility] % CD3 74 62 - 87 % [facility] % CD4 34 (A) 35 - 63 % [facility] % CD8 36 (A) 10 - 35 % [facility] Absolute CD4 [phone],[phone] [facility] Comment: Cells/uL [facility] Test performed or referred by The [address] [address] Specimen Narrative [facility] - 021 20:33 EST Does PT Have a Latex Allergy? NO Performing Organization Address City/State/ZIP Code Phon e Number [facility] [address] [place] [address] HIV 1 RNA QUANTITATION (11/26/2020 14:07 EST) [facility] HIV-1 RNA QUANT - Undetected Undetected [facility] Comment: [facility] INFCE Result Units: copies/mL Result in log copies/mL is Undetected. ADDITIONAL INFORMATION ------ The quantification range of this assay is 20 to 10,000 ,000 copies/mL (1.30 log to 7.00 log copies/mL). Testing wa s performed using the rafael HIV-1 test ([employer] with the rafael 6800 System. This test has been modified from the optical mechanic apprentice's instructions. Its performance characteristics were determined by [facility] in a manner consistent with CLIA requirements. This test has not been cleared or approv ed by the U.S. Food and Drug Administration. Test Performed by: [facility] [address] [place] [address] Facilities Mechanical Design Engineer: Pritesh Mcgee M.D. Ph.D.; CLIA# [id number] Specimen Narrative [facility] - 021 20:33 EST Does PT Have a Latex Allergy? NO Performing Organization Address City/State/ZIP Code Phon e Number [facility] [address] [place] [address] URINALYSIS - [facility] (11/26/2020 14:07 EST) URINE APPEARANCE - Clear CLEAR [facility] URINE BILIRUBIN - Negative NEGATIVE [facility] DIPSTICK [facility] URINE BLOOD - [facility] Negative NEG [facility] URINE COLOR - [facility] Yellow YELLOW [facility] URINE GLUCOSE - Negative NEGATIVE [facility] URINE KETONE - [facility] Negative NEGATIVE [facility] URINE LEUK ESTERASE Negative NEG [facility] URINE NITRITE - Negative NEG [facility] DIPSTICK [facility] URINE PH - [facility] 7.0 4.0 - 8.0 [facility] URINE PROTEIN - Negative NEG [facility] DIPSTICK [facility] URCULTIF+? - [facility] No Culture [facility] IndicatedComment: [facility] CULTURE IS NOT INDICATED, BASED ON RESULTS OF THE URINALYSIS URINE SPECIFIC 1.020 1.001 - 1.035 [facility] GRAVITY - [facility] URINE UROBILINOGEN - 0.2 0.2 - 1.0 [facility] DIPSTICK [facility] Specimen Narrative [facility] - 021 15:27 EST Does PT Have a Latex Allergy? NO Performing Organization Address City/State/ZIP Code Phon e Number [facility] [address] [place] [address] (ABNORMAL) COMPREHENSIVE METABOLIC PANEL (CMP) (11/26/2020 14:07 EST) ALBUMIN - [facility] 3.8 3.4 - 4.9 [facility] g/dL [facility] ALKALINE 77 38 - 126 U/L [facility] PHOSPHATASE [facility] BILIRUBIN TOTAL 0.3 0.2 - 1.3 [facility] mg/dL [facility] BUN - [facility] 21 10 - 26 mg/dL [facility] CALCIUM - [facility] 9.0 8.5 - 10.5 [facility] mg/dL [facility] Chloride 100 96 - 110 [facility] mmol/L [facility] CO2 Total 28 21 - 32 mEq/L [facility] CREATININE 1.04 0.66 - 1.25 [facility] mg/dL [facility] eGFR >60 [facility] Comment: [facility] Chronic renal impairment is defined as GFR <60 Multiply result by 1.210 for patients . Anion Gap 10 0 - 18 [facility] GLUCOSE - [facility] 109 (H) 70 - 100 [facility] mg/dL [facility] Potassium 4.7 3.5 - 5.0 [facility] mEq/L [facility] Sodium 138 136 - 145 [facility] mEq/L [facility] TOTAL PROTEIN - 6.7 6.2 - 8.2 [facility] gm/dL [facility] SGOT/AST - [facility] 20 17 - 59 U/L [facility] SGPT/ALT - [facility] 15 0 - 50 U/L [facility] Specimen Narrative [facility] - 021 15:03 EST Does PT Have a Latex Allergy? NO Performing Organization Address City/State/ZIP Code Phon e Number [facility] [address] [place] [address] (ABNORMAL) COMPLETE BLOOD COUNT WITH DIFFERENTIAL (AUTO) (11/26/2020 14:07 EST) Pathologist Sig nature ABSOLUTE NEUTROPHIL 4.6 2.2 - 8.85 [facility] COUN - [facility] 10e3/uL [facility] BASO # - [facility] 0.02 0.01 - 0.11 [facility] 10e/uL [facility] BASO % - [facility] 0 0 - 2 % [facility] EOS # - CV 0.06 0.03 - 0.61 [facility] 10e3/ul [facility] EOS % - [facility] 1 0 - 5 % [facility] GRAN % - [facility] 64.1 40 - 80 % [facility] HEMATOCRIT - [facility] 38.3 (L) 39.5 - 50.2 % [facility] HEMOGLOBIN - [facility] 12.8 (L) 13.8 - 17.3 [facility] g/dl [facility] IG# - [facility] 0.01 0 - 0.7 10e3/uL [facility] IG% - [facility] 0.1 0 - 0.9 % [facility] LYMPH # - CV 1.8 1.09 - 3.3 [facility] 10e3/ul [facility] LYMPH% - [facility] 24.6 20 - 40 % [facility] MEAN CORPUSCULAR HGB 28.3 27.6 - 33.0 pg [facility] ME D - CV [facility] MEAN CORPUSCULAR HGB 33.4 32.8 - 36.4 [facility] CONC - [facility] g/dL [facility] MEAN CELL VOLUME - 84.7 81 - 95 fl [facility] MONO # - [facility] 0.7 0.1 - 0.8 [facility] 10e3/uL [facility] MONO% - CV 10.1 0 - 12 % [facility] PLATELET COUNT 317 141 - 377 [facility] 10e3/ul [facility] RED BLOOD COUNT - 4.52 4.36 - 5.78 [facility] 10e3/ul [facility] RED CELL DISTRI WIDTH 14.4 <14.2 % [facility] WHITE BLOOD COUNT - 7.2 4.0 - 10.4 [facility] 10e3/ul [facility] Specimen Narrative [facility] - 021 14:55 EST Does PT Have a Latex Allergy? NO Performing Organization Address City/State/ZIP Code Phon e Number [facility] [address] [place] [address] documented in this encounter Visit Diagnoses Not on filedocumented in this encounter Care Teams Rolling Attendant Relationship Specialty Start Date End Date Gil-Marcy Santos, PCP - General Family Medicine - Primary 1 11/13/18 GROUP CARE WORKER Care [address] [place] [phone] documented as of this encounter
--- OUTSIDE RECORDS SUMMARY | 2022-03-10 21:42 | XMS_ITS | Encounter Summary ---
:1965 Author Organization [facility] Address [address] [place] [address] Care Team Providers Name Role Phone Marcy Alvarenga ASSISTANT PROPERTY MANAGER Primary Care Provider [phone] Reason for Visit Reason Comments Follow-up HIV Infection Encounter Details Date Type Department Care Team Description 12/05/2019 Office Visit [facility] - Lilian Rushing Asy mptomatic HIV infection ([facility] (Primary Dx); [facility] Infectious MD Chronic knee pain, unspecified lateralit y; Disease [address] Encounter for immunization; [address], [address] Essential hypertension; [place] [address] [place] Screening for diabetes michael snell; [phone] Screening for hyperlipidemia; [phone] Medication kana boogie encounter (Work) Social History Tobacco Use Types Packs/Day [...] Sign Reading Time Taken Comments Blood Pressure 122/62 12/05/2019 1556 EST Pulse 84 12/05/2019 1556 EST Temperature 36.9 ??C (98.5 ??F) 12/05/2019 1556 EST Respiratory Rate - - Oxygen Saturation - - Inhaled Oxygen Concentration - - Weight - - Height - - Body Mass Index - - documented in this encounter Progress Notes Aissatou Morales RN - 12/05/2019 1540 EST Ha Soria has received the Menactra, PPSV23, and Shingrix immunization today. VIS given topatient and all questions were answered. The procedure was tolerated well. Blood drawn via butterfly needle from R Antecubital per protocol, DSD applied, tiger and purple tube(s) sent to lab per order. Patients response tolerated well. AISSATOU MORALES RN 12/05/2019 17:01 Lilian Levy MD - 12/05/2019 1540 EST FOLLOW-UP VISIT NOTE HIV/AIDS CC: Ha Soria is a 54 y.o. for his follow-up visit. HPI: ??Patient returns to clinic today for onging care of HIV. He was last seen 05/30/19. Currently onGenvoya and tolorating it well. HIV Dx in 11/2014. Stribild started then. Switched to Genvoya 05/2016 due to increasing creatinine. Remote h/o coccidioidomycosis. He move to [facility] from [place] in the summer of 2018 to take care of his aging parents, but is planning on moving at some point. 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 He is now set up with [facility] for his HIV meds. Today, he is due for MCV4 and PPSV23 vaccines. He could also get Shingrix since he's over 50. He just came over from an Ortho appointment about his knee. He says Ortho doesn't want to do a steroid injection, but he has no cartilage left so it's bone on bone. He can usually manage, but after a long double shift at work, it gets really painful. Ultimately, he will likely need a knee replacement,but he's not ready for that yet. Doesn't need refills. No sexual activity. Was seen up at [facility] for symptoms of gonorrhea - tested positive, treated. No recurrence of symptoms. Hasn't been sexually active since then. HIV diagnosis history: Date of Dx - 11/2014 Risk Factor(s) - MSM Tobi CD4 count - unknown OI History - Resistance History - Current Meds and Medication History - Nicole Lozada (2014) [id number] - Hep A - Immune per records Hep B - SAb+ Hep C Ab - neg (06/23/19) RPR - nonreactive (09/01/19) REVIEW OF SYSTEMS: 10-point review of systems is negative except as noted in the HPI. Medical/Surgical/Social/Family History reviewed - see appropriate section of EMR. PHYSICAL EXAMINATION Vital Signs: Patient Vitals for the past 24 hrs: BP Temp Temp src Pulse 12/05/19 1556 122/62 36.9 ??C (98.5 ??F) Oral 84 General appearance: alert, conversant, well-appearing. HEENT: no temporal wasting, anicteric sclera, normal conjunctiva, MMM, no thrush or oropharyngeal exudates Neck: supple, FROM, no cervical lymphadenopathy. CV: RRR, s1/s2 present, no murmurs. Pulm: CTA b/l, good air movement throughout. Abdomen: soft, non-tender, non-distended Ext: no LE edema MSK: unremarkable. Skin: no rash, warm and dry. Neuro: non-focal Psych: appropriate LABS Date CD4(%) VL 11/02/15 503(235) - 05/07/16 - Undetectable 11/19/16 439(24%) - 09/16/17 389(34%) Undetectable 04/28/19 530(30%) - 09/01/19 403(27%) Undetectable IMPRESSION AND PLAN: 54 y/o M with HIV and h/o coccidioidomycosis here for follow up care. 1) Knee osteoarthritis His coccidioidomycosis was many years ago, and he was adequately treated. It is certainly known to cause joint damage that can lead to early OA down the road. There's no evidence that he has persistentinfection, and his CD4 has been fine. So I think it would be reasonable to do a steroid injection inhis knee. He can also take ibuprofen occasionally for pain. His last creatinine was fine, and he's on TAF rather than TDF so less potential kidney issues. 2) HIV - Currently on Genvoya - Last CD4 count 420(27%) - Last HIV viral load undetectable - Sexual activity: not sexually active - G/C (postive 06/23/19) - RPR (nonreactive 09/01/19) - CD4 Q3-6 months (last 09/01/19) - VL Q3-6 months (last 09/01/19) - CMP Q3-6 months (last 09/01/19) 3) Health maintenance - Lipids Q6-12 months (last 2015?) - A1C Q6-12 months (last ?) - UA Q6 months (if on TAF/TDF) (last 2016?) - Anal cancer screening: negative 2014 4) Immunizations MMR - 05/30/19: Mumps IgG pos, Rubella IgG pos, Rubeola IgG neg (MMR given 09/01/19) Varicella - IgG pos (05/30/19) PCV13 given 01/24/16, PPSV23 given x- due for repeat PPSV23 5 years after last PPSV23 Hep A - immune per recrods Hep B - SAb +, SAg neg (06/23/19) MCV4 - #1 given 05/30/19, #2 given x, then booster Q5 years Flu - annually, given 09/01/19 Men B - not indicated Hib - not indicated Shingrix - Indicated in HIV positive patients over 50 Other Orders Placed This Visit Procedures ??? Meningococcal Conjugate (MCV4) Vaccine (MENACTRA) 4-Valent IM ??? Pneumococcal polysaccharide (PPSV23) vaccine (PNEUMOVAX-23) 23-valent greater than or equal to 2yo subcutaneous/IM ??? Shingrix (Zoster Vaccine, Recombinant) IM ??? HIV 1 RNA Quantitation ??? Hemoglobin A1c ??? LDL, Direct ([facility]) I spent a total of 40 minutes in [id number] time with this patient with 25 minutes of that time spent in counseling and coordination of care as described in the progress note. Lilian Rushing MD, MPH [facility] Infectious Disease Office: [phone] CC: referring provider, PCP?? documented in this encounter Plan of Treatment Upcoming Encounters Date Type Specialty Care Team Description 04/14/2022 Office Visit Infectious Disease Lilian Rushing MD [address] [facility], [address] [place] [address] (Wo rk) Scheduled Orders Name Type Priority Associated Diagnoses Order S chedule LDL, DIRECT ([facility] Routine Asymptomatic HIV infecti on Ordered: 12/05/2019 [facility]) ([facility]) Essential hypert ension Screening for hy perlipidemia Medication monitoring encounter documented as of this encounter Procedures Procedure Name Priority Date/Time Associated Diagnosis Comme nts HIV 1 RNA Routine 12/05/2019 16:30 Asymptomatic HIV Results for this QUANTITATION EST infection ([facility]) procedure are in Medication the results monitoring encounter section . HEMOGLOBIN A1C Routine 12/05/2019 16:30 Asymptomatic HIV Resul ts for this EST infection ([facility]) procedure are in Essential the results hypertension section. Screening for diabetes mellitus documented in this encounter Results HEMOGLOBIN A1C (12/05/2019 16:30 EST) Hemoglobin A1c 5.5 4.0 - 6.0 % [facility] Comment: [facility] > or =18 years: ??Increased risk for diabetes (prediabetes): 5.7-6.4% Diabetes: > or =6.5% Therapeutic goals for glycemic control (ADA) Adults: - Goal of therapy: <7.0% HbA1c - Action suggested: >8.0% HbA1c Pediatric patients: - Toddlers and preschoolers: <8.5% (but >7.5%) - School age (6-12 years): <8% - Adolescents and young adults (13-19 years): <7.5% Est Avg Glucose 111 mg/dL [facility] Specimen Blood - Venous blood (substance) Performing Organization Address City/State/ZIP Code Phon e Number [facility] [address] [place] [address] [facility] HIV 1 RNA QUANTITATION (12/05/2019 16:30 EST) HIV-1 RNA QUANT - <20 Undetected [facility] Comment: [facility] Result Units: copies/mL Result in log copies/mL is <1.30. HIV-1 RNA is detected, but level present is <20 copies /mL (<1.30 log copies/mL). This assay cannot accurately quantify HIV-1 RNA below this level. ADDITIONAL INFORMATION ------ The quantification range of this assay is 20 to 10,000 ,000 copies/mL (1.30 log to 7.00 log copies/mL). Testing wa s performed using the rafael HIV-1 test ([employer] with the rafael 6800 System. This test has been modified from the automobile brakes bonder's instructions. Its performance characteristics were determined by [facility] in a manner consistent with CLIA requirements. This test has not been cleared or approv ed by the U.S. Food and Drug Administration. Test Performed by: [place] [address] Laser Print Operator: Pritesh Mcgee M.D. Ph.D.; CLIA# [id number] Specimen Blood - Venous blood (substance) Performing Organization Address City/State/ZIP Code Phon e Number [facility] [address] [facility] documented in this encounter Visit Diagnoses Diagnosis Asymptomatic HIV infection (HCC) - Prima ry Asymptomatic human immunodeficiency viru s (HIV) infection status Chronic knee pain, unspecified lateralit y Encounter for immunization Need for other specified prophylactic va ccination against single bacterial disease Essential hypertension Unspecified essential hypertension Screening for diabetes mellitus Screening for hyperlipidemia Screening for lipoid disorders Medication monitoring encounter Encounter for therapeutic drug monitorin g documented in this encounter Orders Immunization/Injection Count Last Ordered Date First O rdered Date MENINGOCOCCAL CONJUGATE (MCV4) VACCINE 1 0 (MENACTRA) 4-VALENT IM PNEUMOCOCCAL POLYSACCHARIDE (PPSV23) 1 12/05/2019 VACCINE (PNEUMOVAX-23) 23-VALENT =>2YO SQ/IM SHINGRIX (ZOSTER VACCINE, RECOMBINANT) IM 1 2019 documented in this encounter Care Teams Field Education Director Relationship Specialty Start Date End Date Gil-Marcy Santos, PCP - General Family Medicine - Primary 1 11/13/18 ASSISTANT PROPERTY MANAGER Care [address] [place] [phone] documented as of this encounter
--- OUTSIDE RECORDS SUMMARY | 2022-03-10 21:42 | XMS_ITS | Encounter Summary ---
:1965 Author Organization [facility] Address [address] [place] [address] Care Team Providers Name Role Phone None, Provider Primary Care Provider Unavailable Reason for Visit Reason Onset Date Comments Social Work 04/27/2019 Encounter Details Date Type Department Care Team Description 04/27/2019 Telephone [facility] Infectious Molly Gibson LICSW Social Work [facility] [address] [place] [address] Social History Tobacco Use Types Packs/Day Years Used Date Never Assessed Food Insecurity Answer Date Recorded Within the [...] this encounter Miscellaneous Notes Telephone Encounter - Kristyn Gibson LICSW - 04/27/2019 0857 EDT Called to follow up on missed initial appointment. Patient walked in on Thursday asking to be seen andwas scheduled for the following day. Left VM asking him to call back to reschedule and/or discuss any barriers to coming to clinic. documented in this encounter Plan of Treatment Upcoming Encounters Date Type Specialty Care Team Description 04/14/2022 Office Visit Infectious Disease Lilian Rushing MD [address] [place] [address], [address] [place] [phone] (Wo rk) documented as of this encounter Visit Diagnoses Not on filedocumented in this encounter Care Teams Ceo Relationship Specialty Start Date End Date None, Provider PCP - General 04/22/19 06/22/19 documented as of this encounter
--- OUTSIDE RECORDS SUMMARY | 2022-03-10 21:42 | XMS_ITS | Encounter Summary ---
:1965 Author Organization [facility] Address [address] [place] [address] Care Team Providers Name Role Phone Marcy Alvarenga SHELTER SUPERVISOR Primary Care Provider [phone] Encounter Details Date Type Department Care Team Description 08/17/2020 Travel Social History Tobacco Use Types Packs/Day [...] been in contact with No / Unsure 08/17/2020 16:43 EDT someone who was confirmed or suspected [...] Visit Infectious Disease Lilian Rushing MD [address] [facility], [address] [place] [address] (Wo rk) documented as of this encounter Visit Diagnoses Not on filedocumented in this encounter Care Teams Airport Screener Relationship Specialty Start Date End Date Marcy Alvarenga, PCP - General Family Medicine - Primary 1 11/13/18 SHELTER SUPERVISOR Care [address] [facility] [address] [place] [address] documented as of this encounter
--- OUTSIDE RECORDS SUMMARY | 2022-03-10 21:42 | XMS_ITS | Encounter Summary ---
:1965 Author Organization [facility] Address [address] [place] [address] Care Team Providers Name Role Phone Marcy Alvarenga INSURANCE FOLLOW UP REPRESENTATIVE Primary Care Provider [phone] Reason for Visit Reason Onset Date Comments Medications Refill 04/19/2020 Encounter Details Date Type Department Care Team Description 04/19/2020 Telephone [facility] Alvarenga er Medications Refill [facility] Family Medicine - L, INSURANCE FOLLOW UP REPRESENTATIVE [address], [place] [address] [place], [place] [address] [place] [phone] (Wo rk) Social History Tobacco Use [...] this encounter Miscellaneous Notes Telephone Encounter - La Harper RN - 04/19/2020 1422 EDT OV made for 05/01/20 at 1500 with Marcy [facility] MEDICATION REFILL Medication: tamsulosin 0.4 Medication, dose, directions verified: 1 cap daily Pharmacy verified: [facility] Last office visit: 03/05/20 w/ Dr. Rushing Next office visit: 05/01/20 Medication: lisinopril 10mg Medication, dose, directions verified: 1 tab daily Pharmacy verified: [facility] Last office visit: 03/05/20 w/ Dr. Rushing Next office visit: 05/01/20 Both of these were last refilled on 04/18/20 for 90 days supply, 3 refills Last BMP was 03/07/20 Called [facility] to clarify that they received the scripts on 04/18/20. Spoke with pharmacist who states that they do have scripts on file. Called Ha to let him know, no answer. LM for Rich elephone Encounter - Pilo Good - 04/19/2020 1333 EDT Pt called to make a f/u meds appt since he has not met with JFW yet, needs refills of tamulosin and lisinopril - can these be sent now or does he need to wait to be seen? documented in this encounter Plan of Treatment Upcoming Encounters Date Type Specialty Care Team Description 04/14/2022 Office Visit Infectious Disease Lilian Rushing MD [address] [place] [address] [address] [place] [address] (Wo rk) documented as of this encounter Visit Diagnoses Not on filedocumented in this encounter Care Teams Cafe Attendant Relationship Specialty Start Date End Date Gil-Marcy Santos, PCP - General Family Medicine - Primary 1 11/13/18 INSURANCE FOLLOW UP REPRESENTATIVE Care [address] [place] [address] [address] [place] [address] documented as of this encounter
--- OUTSIDE RECORDS SUMMARY | 2022-03-10 21:42 | XMS_ITS | Encounter Summary ---
:1965 Author Organization [facility] Address [address] [place] [address] Care Team Providers Name Role Phone Marcy Alvarenga SOAP INSPECTOR Primary Care Provider [phone] Reason for Visit Reason Comments Mass lft side of head-painful Encounter Details Date Type Department Care Team Description 08/17/2020 Walk-In [facility] Krystle Monte NP Abscess (Primary Dx) [facility] [address] [place] [place] [address] [phone] [place] [address] (Wo rk) Social History Tobacco Use Types [...] Sign Reading Time Taken Comments Blood Pressure 137/77 08/17/20201650 EDT Pulse 84 08/17/20201650 EDT Temperature 36.1 ??C (97 ??F) 08/17/20201650 EDT Respiratory Rate - - Oxygen Saturation 100% 08/17/20201650 EDT Inhaled Oxygen Concentration - - Weight - [...] as of this encounter Patient Instructions Patient InstructionsKrystle Monte APRN - 08/17/2020 16:00 EDT You were seen today for an abscess on your scalp. The abscess was opened and drained while in clinic. Keep the resulting wound clean and dry. Keep dressing on as applied in clinic to allow for drainage.Change dressing at least once daily, more frequently if the dressing becomes saturated with wound drainage, or otherwise becomes wet or dirty. Use warm compresses on the area 4-6 times daily to promote blood flow, wound drainage, and to help the infection heal. A sample of the material drained from the wound was sent to the lab for a wound culture. I will callyou ONLY if the wound culture results indicate a need to change the plan of care. You have been prescribed Keflex as an antibiotic. Start taking antibiotic as prescribed. Add probiotic to diet while taking the antibiotic and for at least 1 week afterwards. The easiest way to do thisis to eat yogurt every day. Return to care for worsening pain, redness, swelling, fever, failure to improve, other new or worrisome symptoms. documented in this encounter Ordered Prescriptions Prescription Sig Dispensed Refills Start Date End Date cephALEXin (KEFLEX) 500 mg Take 1 Cap by mouth 28 Cap 0 08/17/2020 08/24/2020 capsuleIndications: 4 times daily for 7 Abscess days. documented in this encounter Progress Notes Krystle Monte APRN - 08/17/2020 1600 EDTAssociated Order(s): Incision and DrainagePost-Procedure Diagnose(s): Abscess [facility] Express [facility] Chief Complaint(s): Mass (lft side of head-painful) HPI: Ha Soria is here with complaint of painful lump on left side of head, has been getting more swollen and painful over the past week. Has tried warm compresses. No fever. I have reviewed current problem list, current medications and allergies. ROS: Review of Systems Constitutional: Negative. Skin: Negative for itching and rash. Neurological: Negative. See HPI for details Objective: Examination: Vitals: BP 137/77 Pulse 84 Temp 36.1 ??C (97 ??F) (Temporal) SpO2 100% Physical Exam Incision and Drainage Date/Time: 08/17/2020 17:14 Performed by: Krystle Monte APRN Authorized by: Krystle Monte APRN Consent: Verbal consent obtained. Written consent obtained. Risks and benefits: risks, benefits and alternatives were discussed Consent given by: patient Patient understanding: patient states understanding of the procedure being performed Patient consent: the patient's understanding of the procedure matches consent given Patient identity confirmed: verbally with patient Time out: Immediately prior to procedure a time out was called to verify the correct patient, procedure, equipment, clerical and office support workers and site/side marked as required. Type: abscess Body area: head Location details: scalp Anesthesia: local infiltration Anesthesia: Local Anesthetic: lidocaine 2% without epinephrine Anesthetic total: 2 mL Scalpel size: 11 Incision type: single straight Incision depth: subcutaneous Complexity: simple Drainage: bloody Drainage amount: scant Wound treatment: wound left open Packing material: none Patient tolerance: patient tolerated the procedure well with no immediate complications Comments: Dressed with bacitracin and a bandaid Assessment & Plan: Ha was seen today for mass. Diagnoses and all orders for this visit: Abscess - cephALEXin (KEFLEX) 500 mg capsule; Take 1 Cap by mouth 4 times daily for 7 days. Other orders - Incision and Drainage This is a 55 y.o. yr old male, alert, afebrile, NAD. Minimal drainage obtained. Pt to use warm compresses, start oral abx, follow up if needed. I reviewed home management in detail with patient, see patient instructions below. All questions areanswered. Patient is advised to follow up for urgent reassessment for any severe worsening or new onset of serious/severe signs and symptoms. Otherwise, patient is instructed to follow up with PCP or return to [facility] for symptoms persisting beyond current course of treatment. Patient verbalizes understanding and states agreement with this plan of care. Patient declined printed AVS with written instructions. Anamika Silver LPN - 08/17/2020 1600 EDT CC: Has the patient contacted their PCP regarding this chief complaint? no Covid Screening: In the last 72 hours, has the patient had: Shortness of breath, cough, sore throat, fever/chills/body aches, headache, or loss of taste or smell without a reasonable alternative diagnosis*? (If yes, assign patient to ARC schedule) no If no, in the past 14 days, has the patient had known close contact (< 6 feet for > 15 minutes) with a confirmed Covid-19 positive patient? (If yes, assign patient to ARC schedule.) no If no, have they had travel outside the [facility] in the past 14 days? (If no, see in NRC) no If yes, was it to an area that required quarantine? (If yes, see in ARC. If quarantine of 14 days has already been completed, see in NRC) *may be determined by RN/SQL BI DEVELOPER or in discussion with available provider (CCA's can defer to Charge Nurse or Nurse they are working with to complete triage when appropriate) Reference [place] Travel Map to see if the location falls within a low risk area (<400 cases per million): https://accd.[place].gov/covid-19/restart/ztgyi-yqgjc-tjorty documented in this encounter Plan of Treatment Upcoming Encounters Date Type Specialty Care Team Description 04/14/2022 Office Visit Infectious Disease Lilian Rushing MD [address] [place] [address], [address] [place] [address] (Wo rk) Scheduled Orders Name Type Priority Associated Diagnoses Order S chedule BACTERIAL Microbiology Routine Abscess Ordered: 2019 CULTURE/SMEAR documented as of this encounter Procedures Procedure Name Priority Date/Time Associated Diagnosis Comme nts ROUTINE CULTURE - Routine 08/17/2020 17:16 Abscess Result s for this [facility] EDT procedure are i n the results section. GRAM SMEAR Routine 08/17/2020 17:16 Abscess Results for this EDT procedure are i n the results section. INCISION AND Routine 08/17/2020 16:00 Abscess Results for this DRAINAGE EDT procedure are i n the results section. INCISION AND Routine 08/17/2020 16:00 Abscess Results for this DRAINAGE EDT procedure are i n the results section. 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 It is resistant to oxacillin, cephalosporins and other beta lactam antibiotics. SPECIMEN IS COMPROMISED. 36 HOURS FROM COLLECTION UNTI L RECEIPT IN THE LABORATORY. FASTIDIOUS ORGANISMS MAY NO T BE RECOVERED STAPHYLOCOCCUS SP STAPHYLOCOCCUS SP [facility] COAG POSITIVE - [facility] COAG POS [facility] QUANT - [facility] MODERATE [facility] Specimen Head Organism Antibiotic Method Susceptibility Staphylococcus sp coag Azithromycin GRAM POSITIVE Resistant pos SUSCEPTIBILITY - [facility] Staphylococcus sp coag Clindamycin GRAM POSITIVE <=0.25: S usceptible pos SUSCEPTIBILITY - [facility] Staphylococcus sp coag Cefazolin GRAM POSITIVE Resistant pos SUSCEPTIBILITY - [facility] Staphylococcus sp coag Erythromycin GRAM POSITIVE >=8: Resi stant pos SUSCEPTIBILITY - [facility] Staphylococcus sp coag Levofloxacin GRAM POSITIVE <=0.12: S usceptible pos SUSCEPTIBILITY - [facility] Staphylococcus sp coag Oxacillin GRAM POSITIVE >=4: Resi stant pos SUSCEPTIBILITY - [facility] Staphylococcus sp coag Trimethoprim-Sulfame GRAM POSITIVE <=10 : Susceptible pos thoxazole SUSCEPTIBILITY - [facility] Staphylococcus sp coag Tetracycline GRAM POSITIVE <=1: Susc eptible pos SUSCEPTIBILITY - [facility] Staphylococcus sp coag Vancomycin GRAM POSITIVE 1: Suscep tible pos SUSCEPTIBILITY - [facility] Staphylococcus sp coag Linezolid GRAM POSITIVE 2: Suscep tible pos SUSCEPTIBILITY - [facility] Comment: Tetracycline susceptible Coa g positive staph is also susceptible to doxycycline a nd minocycline. Comment: GROWTH ON SIDE OF HEAD CELL BLACK Performing Organization Address City/[facility] Code Phon e Number [facility] [address] [place] [address] GRAM SMEAR (08/17/2020 17:16 EDT) GRAM STAIN - [facility] TWO SWABS RECEIVED [facility] GRAM STAIN GRAM POSITIVE COCCI FEW [facility] WBC NO [facility] Specimen Head Performing Organization Address [facility] Phon e Number [facility] [address] [place] [address] HI DRAIN SKIN ABSCESS SIMPLE, HC - INCISION & DRAINAGE ABSCESS SIMPLE/SINGLE (08/17/2020 16:00 EDT) Narrative [facility] POINT OF CARE - 08/17/2020 16:00 E DT Krystle Monte APRN ? 08/17/2020 17:27 Incision and Drainage Date/Time: 08/17/2020 17:14 Performed by: Krystle Monte APRN Authorized by: Krystle Monte APRN Consent: Verbal consent obtained. Roderick doe consent obtained. Risks and benefits: risks, benefits and alternatives were discussed Consent given by: patient Patient understanding: patient states un derstanding of the procedure being performed Patient consent: the patient's understan ding of the procedure matches consent given Patient identity confirmed: verbally wit h patient Time out: Immediately prior to procedure a time out was called to verify the correct patient, procedure, equipmen t, clerical and office support workers and site/side marked as required. Type: abscess Body area: head Location details: scalp Anesthesia: local infiltration Anesthesia: Local Anesthetic: lidocaine 2% without e pinephrine Anesthetic total: 2 mL Scalpel size: 11 Incision type: single straight Incision depth: subcutaneous Complexity: simple Drainage: bloody Drainage amount: scant Wound treatment: wound left open Packing material: none Patient tolerance: patient tolerated the procedure well with no immediate complications Comments: Dressed with bacitracin and a bandaid Performing Organization Address City/State/ZIP Code Phon e Number [facility] POINT OF CARE documented in this encounter Visit Diagnoses Diagnosis Abscess - Primary Cellulitis and abscess of unspecified si te documented in this encounter Care Teams Virologist Relationship Specialty Start Date End Date Gil-Marcy Santos, PCP - General Family Medicine - Primary 1 11/13/18 SOAP INSPECTOR Care [address] [place] [phone] documented as of this encounter
--- OUTSIDE RECORDS SUMMARY | 2022-03-10 21:42 | XMS_ITS | Encounter Summary ---
:[address] [facility] Address [address] [place] [address] Care Team Providers Name Role Phone None, Provider Primary Care Provider Unavailable Encounter Details Date Type Department Care Team Description 06/23/2019 Travel Social History Tobacco Use Types Packs/Day [...] on file documented as of this encounter Plan of Treatment Upcoming Encounters Date Type Specialty Care Team Description 04/14/2022 Office Visit Infectious Disease Lilian Rushing MD [address] [place] [address], [address] [place] [address] (Wo rk) documented as of this encounter Visit Diagnoses Not on filedocumented in this encounter Care Teams Social Science Professor Relationship Specialty Start Date End Date None, Provider PCP - General 06/23/19 09/12/19 documented as of this encounter
--- OUTSIDE RECORDS SUMMARY | 2022-03-10 21:42 | XMS_ITS | Encounter Summary ---
:1965 Author Organization [facility] Address [address] [place] [address] Care Team Providers Name Role Phone Marcy Alvarenga PRODUCTION MAINTENANCE MECHANIC Primary Care Provider [phone] Reason for Visit Reason Comments New Patient Visit Plantar warts Consult (Routine/Next Available) - Specialty Report Received Specialty Diagnoses / Procedures Referred By Contact Refer red To Contact Orthopedic Surgery Diagnoses Plantar wart of left foot Marcy Alvarenga [facility], PRODUCTION MAINTENANCE MECHANIC [address], [address] [place] [address] [address] [place] [address] [place] [address] Referral ID Status Reason Start Expiration Visits Visits Date Date Requested Authorized [id number] Specialty Specialty 05/01/2020 1 1 Report Services Received Required Encounter Details Date Type Department Care Team Description 05/18/2020 Office Visit [facility] Perltia Mcmahon P lantar verruca (Primary Dx); [facility] DPM Digital mucous cyst of toe Podiatry [address] [place] [address] [place] [address] [address] [place] [address] [place] [address] (Wo rk) Social History Tobacco Use Types [...] been in contact with No / Unsure 05/18/2020 9:43 EDT someone who was confirmed or suspected to have Coronavirus / COVID-19? documented as of this encounter Last Filed Vital Signs Vital Sign Reading Time Taken Comments Blood Pressure - - Pulse 76 05/18/2020942 EDT Temperature 36.8 ??C (98.2 ??F) 05/18/2020 09 EDT Respiratory Rate - - Oxygen Saturation 99% 05/18/2020942 EDT Inhaled Oxygen Concentration - - Weight 59.9 kg (132 lb) 05/18/2020942 EDT Height - - Body Mass Index 21.31 12/05/2019 1516 EST documented in this encounter Patient Instructions Patient InstructionsPerlita Mcmahon DPM - 05/18/2020 9:30 EDT Next Thursday, please place over the counter strength salicylic acid to your warts and occlude with duct tape, perform this daily. We have placed a medication called cantharidin to your warts. You, May develop a blister and if so, can be drained with sterile technique if painful. Dress with antibiotic ointment and Band-Aid afterward. If no blistering or nonpainful blister, no particular special care as needed after removing tape. documented in this encounter Progress Notes Perlita Mcmahon DPM - 05/18/2020 0930 EDT CHIEF COMPLAINT: Chief Complaint Patient presents with ??? Left Foot - New Patient Visit Plantar warts SUBJECTIVE: Ha Soria is a 54 y.o. male who presents as a new patient for Plantar verruca and blisters to toes. Has had multiple treatments, OTC and freezing treatments without improvement. Pain only sub 1 metatarsal 1 head. No surrounding erythema, edema warmth. Also has lesions to dorsal aspect bilateral dorsal 2nd toe. States there was some bleeding, due to rubbing. No pain to this area. Unsure how long they have been there. Patient Active Problem List Diagnosis ??? Asymptomatic HIV infection (HCC-CMS) ??? Benign prostatic hyperplasia ??? Environmental allergies ??? Essential hypertension ??? History of coccidioidomycosis ??? Nocturnal cough ??? Other acne ??? Establishing care with new doctor, encounter for ??? Arthritis of left knee ??? Plantar wart of left foot ??? Colon cancer screening Social History Tobacco Use ??? Smoking status: Never Smoker ??? Smokeless tobacco: Never Used Substance Use Topics ??? Alcohol use: Yes Alcohol/week: 2.0 standard drinks Types: 2 Glasses of wine per week Past Surgical History: Procedure Laterality Date ??? KNEE GANGLION SURGERY No Known Allergies Medications Prior to Today's Visit Medication Sig ??? benzonatate (TESSALON) 100 mg capsule 1 cap(s) orally PRN ??? cetirizine (ZYRTEC) 10 mg tablet 1 tab(s) orally PRN ??? Clindamycin Phosphate 1 % swab 1 nael applied topically PRN ??? grmypet-qsc-cqfyx-tenof ALAFEN (GENVOYA) [id number] mg tablet Take 1 Tab by mouth daily for 90 days. ??? lisinopriL (PRINIVIL) 10 mg tablet Take 1 Tab by mouth daily. ??? tamsulosin (FLOMAX) 0.4 mg capsule Take 1 Cap by mouth daily. No facility-administered medications prior to visit. ROS: Constitutional: negative for, fever, malaise, weight loss, chills Eyes: Negative for, blurry vision, change in vision Ears,nose,mouth,throat : No loss of sense of taste or smell Cardiovascular: negative for, chest pain Respiratory: negative for, dyspnea, cough Gastrointestinal: negative for, abdominal pain, nausea, diarrhea Musculoskeletal negative for, joint pain Skin/breast Positive for warts Neurological: Negative forseizures, memory loss, balance changes, headache Psychiatric Negative for, Depression, Anxiety, sleep problems Hematologic/lymphatic Negative for bruising, easy bleeding, anemia OBJECTIVE: Pulse 76 Temp 36.8 ??C (98.2 ??F) (Oral) Wt 59.9 kg (132 lb) SpO2 99% BMI 21.31 kg/m?? Gen: A+Ox3, NAD. Pleasant Lungs: Breathing unlabored Psych: normal cognition, normal affect HEENT: Anicteric Sclerae Vascular: DP and PT pulses palpable bilaterally. Capillary refil time <3 seconds to all digits bilaterally. There are no ischemic skin changes evident to bilateral lower extremities. Musculoskeletal: Normal strength, ROM and alignment for all joints from the ankle distal are evidentbilateral. Distal hammertoe at distal IPJ bilateral 2nd toes. Semi-flexible. No pain with attempted ROM. Neurological: protective sensation grossly intact to light touch. Dermatologic: Raised hyperkeratotic lesion with punctate capillary centers noted to Left plantar 1stmetatarsal 3.0x4.5cm. , 3 separate lesions plantar hallux, each 0.3x0.3cm. Right plantar halux 0.3x0.2cm. Pain to direct palpation of left plantar 1st met. At dorsal 2nd DIPJ, there are well circumscribed cysts. There is no active drainage. No surrounding erythema, edema warmth. Overlying hyperkeratosis. ASSESSMENT/PLAN: Plantar verruca Explained findings and discussed treatment options. Reviewed viral nature and recalcitrance of plantar verruca. Decision was to try Cantharone. Lesions were debrided of all nonviable tissue. Cantharoneapplied, allowed to dry, and covered with tape.On plantar 1st met approximately 1/3 medial aspect was treated due to size and to see patients response. Discussed post procedure course, including up to approximately 2 days of discomfort with some throbbing. May develop a blister and if so, can be drained with sterile technique if painful. Technique for doing so was described to patient. Dress with antibiotic ointment and Band-Aid afterward. If no blistering or nonpainful blister, no particular special care as needed after removing tape. Patient to call office if has persistent pain, severe pain, redness and/or swelling, or any other concerns. Written instructions provided for patient. Digital mucoid cyst: bilateral dorsal IPJ. -reviewed findings, they have self-drained, monitor closely. Reviewed treatment options: close monitoring, aspiration, surgical excision -offloading pads, and monitor closely, will re-evaluate in 2 weeks. Will make consideration for MRI evaluation This note was prepared using voice recognition software and the EMR. There may be inadvertent errorsand omissions. Perlita Mcmahon DPM 05/18/2020 documented in this encounter Plan of Treatment Upcoming Encounters Date Type Specialty Care Team Description 04/14/2022 Office Visit Infectious Disease Lilian Rushing MD [address] [place] [address] [address] [place] [address] (Wo rk) documented as of this encounter Visit Diagnoses Diagnosis Plantar verruca - Primary Plantar wart Digital mucous cyst of toe documented in this encounter Care Teams Front End Mechanic Relationship Specialty Start Date End Date Gil-Marcy Santos, PCP - General Family Medicine - Primary 1 11/13/18 PRODUCTION MAINTENANCE MECHANIC Care [address] [place] [address] [address] [place] [address] documented as of this encounter
--- OUTSIDE RECORDS SUMMARY | 2022-03-10 21:42 | XMS_ITS | Encounter Summary ---
:1965 Author Organization [facility] Address [address] [place] [address] Care Team Providers Name Role Phone Marcy Alvarenga FEDERAL DISTRICT CLERK Primary Care Provider [phone] Reason for Visit Reason Onset Date Comments Pre-visit Orders 11/20/2020 Encounter Details Date Type Department Care Team Description 11/20/2020 Telephone [facility] Aissatou Iraheta RN Pre-visit Orders Infectious Disease [address] [place] [address] [place] [address] [phone] Social History Tobacco Use Types Packs/Day Years [...] Telephone Encounter - Aissatou Iraheta RN - 11/21/2020 1601 EST Left detailed message for pt to get labs done elephone Encounter - Lilian Rushing MD - 11/21/2020 1521 EST No, we can do it at next visit. Thanks. elephone Encounter - Aissatou Iraheta RN - 11/21/2020 1409 EST Pt due for CMP, UA, HIV quant, and Immunodeficiency panel. Last A1C 11/2019 Last Lipids 05/01/20 elephone Encounter - Aissatou Iraheta RN - 11/20/2020 0927 EST ----- Message from Aissatou Iraheta RN sent at 07/25/2020 9:38 EDT ----- Pt has appt on 12/03/20. Due for labs, need to order and tell pt. documented in this encounter Plan of Treatment Upcoming Encounters Date Type Specialty Care Team Description 04/14/2022 Office Visit Infectious Disease Lilian Rushing MD [address] [facility], [address] [place] [address] (Wo rk) documented as of this encounter Visit Diagnoses Diagnosis Asymptomatic HIV infection (HCC) - Prima ry Asymptomatic human immunodeficiency viru s (HIV) infection status documented in this encounter Care Teams Oil Recovery Unit Operator Relationship Specialty Start Date End Date Mio-Marcy Santos, PCP - General Family Medicine - Primary 1 11/13/18 FEDERAL DISTRICT CLERK Care [address] [place] [address] 2 [place] [address] documented as of this encounter
--- OUTSIDE RECORDS SUMMARY | 2022-03-10 21:42 | XMS_ITS | Encounter Summary ---
:1965 Author Organization [facility] Address [address] [place] [address] Care Team Providers Name Role Phone Marcy Alvarenga COUNTY AGENT Primary Care Provider [phone] Encounter Details Date Type Department Care Team Description 11/26/2020 Lab Requisition [facility] Outr Resulting Lab, Pathology & Laboratory Provider [facility] [address] [id number] Social History Tobacco Use Types Packs/Day Years [...] Visit Infectious Disease Lilian Rushing MD [address] [facility], [address] [place] [address] (Wo rk) documented as of this encounter Procedures Procedure Name Priority Date/Time Associated Diagnosis Comme nts T CELL SUBSETS Routine 11/26/2020 14:07 EST Resul ts for this procedure are i n the results section . documented in this encounter Results (ABNORMAL) IMMUNODEFICIENCY PANEL (11/26/2020 14:07 EST) Pathologist Sig nature % CD3 74 62 - 87 % [facility] % CD4 34 (L) 35 - 63 % [facility] % CD8 36 (H) 10 - 35 % [facility] Absolute CD4 600 329-1,427 Cells/uL [facility] Specimen Blood - Venous blood (substance) Performing Organization Address City/State/ZIP Code Phon e Number [facility] [address] [place] [address] SERVICES documented in this encounter Visit Diagnoses Not on filedocumented in this encounter Additional Health Concerns Infection Onset Date Last Indicated Resolved Time MRSAComment: Hx of LUGQ-Ycip-21/23/2020 08/29/2021 08/29/20 21 C. Stoner 12/31/21 documented as of this encounter Care Teams Chief Librarian Music Department Relationship Specialty Start Date End Date Gil-Marcy Santos, PCP - General Family Medicine - Primary 1 11/13/18 COUNTY AGENT Care [address] [facility] [address] [place] [address] documented as of this encounter
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
--- OUTSIDE RECORDS SUMMARY | 2022-03-10 21:42 | XMS_ITS | Encounter Summary ---
:1965 Author Organization [facility] Address [address] [place] [address] Care Team Providers Name Role Phone Marcy Alvarenga DIE STORAGE WORKER Primary Care Provider [phone] Encounter Details Date Type Department Care Team Description 05/18/2020 Travel Social History Tobacco Use Types Packs/Day [...] / COVID-19? documented as of this encounter Plan of Treatment Upcoming Encounters Date Type Specialty Care Team Description 04/14/2022 Office Visit Infectious Disease Lilian Rushing MD [address] [place] [address], [address] [place] [address] (Wo rk) documented as of this encounter Visit Diagnoses Not on filedocumented in this encounter Care Teams Musical String Maker Relationship Specialty Start Date End Date Marcy Alvarenga, PCP - General Family Medicine - Primary 1 11/13/18 DIE STORAGE WORKER Care [address] [place] [phone] documented as of this encounter
--- OUTSIDE RECORDS SUMMARY | 2022-03-10 21:42 | XMS_ITS | Encounter Summary ---
:1965 Author Organization [facility] Address [address] [place] [address] Care Team Providers Name Role Phone Marcy Alvarenga PAN DEVULCANIZER HELPER Primary Care Provider [phone] Reason for Visit Reason Comments Labs Only Encounter Details Date Type Department Care Team Description 03/07/2020 Nurse Only [facility] - [place], [facility] [place] for [place] (Primary Dx); [facility] Infectious Infectious Disease Asympt omatic HIV infection ([facility]); Disease Medication monitoring encoun ter; [address] Diarrhea, [place] [address] Social History Tobacco Use Types Packs/Day Years [...] been in contact with No / Unsure 03/07/2020 13:58 EDT someone who was confirmed or suspected to have Coronavirus / COVID-19? documented as of this encounter Last Filed Vital Signs Vital Sign Reading Time Taken Comments Blood Pressure - - Pulse - - Temperature 36.6 ??C (97.8 ??F) 03/07/2020 1358 EDT Respiratory Rate - - Oxygen Saturation - - Inhaled Oxygen Concentration - - Weight - - Height - - Body Mass Index - - documented in this encounter Progress Notes Aissatou Iraheta RN - 03/07/2020 1300 EDT Infectious Disease Nurse Visit Patient name: Ha Soria Today's date: 03/07/20; 14:35 HPI: Ha Soria is a 54 y.o. male with history of HIV infection. He had a televideo visit with Dr. Rushing on 03/05/20 where she ordered a BMP, CBC, HIV, Immunodeficency panel, UA, Shingrix, and TDaP. He presents today to have these done. He had a positive Covid screen for diarrhea at check-in. Symptoms x 2 weeks, having 2-3 stools a day. Denies fevers, chills, cough, sob, sore throat, lost of taste and smell. No contact with any covid positive individuals. He has only had contact with his elderly parents and sister who have all been healthy. Afebrile at 97.8. I spoke with Dr. Rushing who advised we can still proceed with nurse visit with contact precautions. She gave verbal orders for a stool culture and covid testing. Pt did not mention hi diarrhea during his televideo visit on Thursday. Medications Current Outpatient Medications: benzonatate (TESSALON) 100 mg capsule cetirizine (ZYRTEC) 10 mg tablet Clindamycin Phosphate 1 % swab mjxxqon-odu-rgywr-tenof ALAFEN (GENVOYA) [phone] mg tablet lisinopril (PRINIVIL) 10 mg tablet tamsulosin (FLOMAX) 0.4 mg capsule No current facility-administered medications for this visit. Allergies No Known Allergies Problem List: Patient Active Problem List Diagnosis ??? Asymptomatic HIV infection (HCC-CMS) ??? Benign prostatic hyperplasia ??? Environmental allergies ??? Essential hypertension ??? History of coccidioidomycosis ??? Nocturnal cough ??? Other acne ??? Establishing care with new doctor, encounter for ??? Arthritis of left knee Physical Exam Vital Signs: Temp 36.6 ??C (97.8 ??F) (Oral) General: NAD Psych: Appropriate ID Pertinent Medications: Genvoya daily Plan/Procedure: 1) HIV: labs and immunizations done today, pt afebile Blood drawn via butterfly needle from R Antecubital per protocol, DSD applied, tiger, green and purple tube(s) sent to lab per order. Patients response tolerated well. Ha Soria has received the Shingrix and TDaP immunization today. VIS given to patient and all questions were answered. The procedure was tolerated well. Urine collected for UA. 2) Diarrhea: Pt agreed with stool and covid testing. He has a flight planned to [place] tomorrow. I advised he self-isolate until he gets his results back. He verbalized understanding but stated he really needs to take this flight down to [place]. Will try to get testing set up today at mobile [facility]. Pt is aware the scheduling team will be calling him. Aissatou Iraheta RN [facility] Infectious Disease Office: [phone] CC: Lilian Rushing MD documented in this encounter Plan of Treatment Upcoming Encounters Date Type Specialty Care Team Description 04/14/2022 Office Visit Infectious Disease Lilian Rushing MD [address] [place] [address], [address] [place] [address] (Wo rk) Scheduled Orders Name Type Priority Associated Diagnoses Order S chedule FECAL BACTERIAL Microbiology Routine Diarrhea, unspecified Ord ered: 03/07/2020 PATHOGENS BY PCR type documented as of this encounter Procedures Procedure Name Priority Date/Time Associated Diagnosis Comme nts T CELL SUBSETS Routine 03/07/2020 13:30 Asymptomatic HIV Resul ts for this EDT infection (HCC-C MS) procedure are in Medication monitoring the re sults encounter section. BASIC METABOLIC Routine 03/07/2020 13:30 Asymptomatic HIV Resu lts for this PANEL (BMP) EDT infection (HCC-C MS) procedure are in Medication monitoring the re sults encounter section. documented in this encounter Results (ABNORMAL) IMMUNODEFICIENCY PANEL (03/07/2020 13:30 EDT) % CD3 75 62 - 87 % [facility] % CD4 33 (A) 35 - 63 % [facility] % CD8 37 (A) 10 - 35 % [facility] Absolute CD4 [phone] [facility] Comment: Cells/uL [facility] Test performed or referred by The [address] [address] Specimen Blood - Venous blood (substance) Performing Organization Address [facility] Phon e Number [facility] [address] [place] [address] [facility] (ABNORMAL) BASIC METABOLIC PANEL (BMP) (03/07/2020 13:30 EDT) BUN - [facility] 31 (H) 10 - 26 mg/dL [facility] CALCIUM - [facility] 9.6 8.5 - 10.5 [facility] mg/dL [facility] Chloride 99 96 - 110 [facility] mmol/L [facility] CO2 Total 27 21 - 32 mEq/L [facility] CREATININE 1.03 0.66 - 1.25 [facility] mg/dL [facility] eGFR >60 [facility] Comment: [facility] Chronic renal impairment is defined as GFR <60 Multiply result by 1.210 for patients . Anion Gap 8 0 - 18 [facility] GLUCOSE - [facility] 103 (H) 70 - 100 mg/dL [facility] Potassium 4.5 3.5 - 5.0 [facility] mEq/L [facility] Sodium 134 (L) 136 - 145 [facility] mEq/L [facility] Specimen Blood - Venous blood (substance) Performing Organization Address [facility] Phon e Number [facility] [address] [place] [address] [facility] documented in this encounter Visit Diagnoses Diagnosis Encounter for immunization - Primary Need for other specified prophylactic va ccination against single bacterial disease Asymptomatic HIV infection (HCC) Asymptomatic human immunodeficiency viru s (HIV) infection status Medication monitoring encounter Encounter for therapeutic drug monitorin g Diarrhea, unspecified type documented in this encounter Orders Lab Orders Without Results Count Last Ordered Date Fir st Ordered Date COMPLETE BLOOD COUNT AND DIFFERENTIAL 1 03/07/2020 HIV 1 RNA QUANTITATION 1 03/07/2020 URINE CHEMICAL (DIP) & SEDIMENT (MICRO) 1 03/07/20 20 WITHOUT REFLEX TO CULTURE Immunization/Injection Count Last Ordered Date First O rdered Date SHINGRIX (ZOSTER VACCINE, RECOMBINANT) IM 1 2019 TDAP VACCINE =>7YO IM 1 03/07/2020 documented in this encounter Care Teams Electronics Lead Relationship Specialty Start Date End Date Gil-Marcy Santos, PCP - General Family Medicine - Primary 1 11/13/18 PAN DEVULCANIZER HELPER Care [address] [place] [phone] documented as of this encounter
--- OUTSIDE RECORDS SUMMARY | 2022-03-10 21:42 | XMS_ITS | Encounter Summary ---
:1965 Author Organization [facility] Address [address] [place] [address] Care Team Providers Name Role Phone Marcy Alvarenga REFRIGERATING OILER Primary Care Provider [phone] Reason for Visit Reason Comments Follow-up HIV Infection Encounter Details Date Type Department Care Team Description 12/03/2020 Office Visit [facility] - Lilian Rushing Asy mptomatic HIV infection ([facility]) (Primary Dx); [facility] Infectious MD Medication monitoring encounter; Disease [address] [facility] High risk homosexual behavior [address], [address] [place] [address] [place] [phone] Social History Tobacco Use Types Packs/Day [...] Sign Reading Time Taken Comments Blood Pressure 90/52 12/03/2020 1116 EST Pulse 104 12/03/2020 1116 EST Temperature 36.6 ??C (97.8 ??F) 12/03/2020 1116 EST Respiratory Rate - - Oxygen Saturation - - Inhaled Oxygen Concentration - - Weight 61.2 kg (135 lb) 12/03/2020 1116 EST Height - - Body Mass Index 21.79 06/01/2020 1117 EDT documented in this encounter [...] Sig Dispensed Refills Start Date End Date wkksoqq-gpz-xyice-tenof Take 1 Tab by mouth 90 Tab 3 05/202106/18/2021 ALAFEN (GENVOYA) daily for 90 days. [phone] mg tabletIndications: HIV infection documented in this encounter Progress Notes Lilian Rushing MD - 12/03/2020 1100 EST FOLLOW-UP VISIT NOTE HIV/AIDS CC: Ha Soria is a 55 y.o. for his follow-up HIV visit. HPI: ??Patient is being seen today for onging care of HIV. Currently on Genvoya and tolorating it well. HIV dx in 11/2014. Stribild started then. Switched to Genvoya 05/2016 due to increasing creatinine.Remote h/o coccidioidomycosis. He move to [facility] from [place] in the summer of 2018 to take care of his aging parents, but is planning on moving at some point. 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 He is now set up with [facility] for his HIV meds. 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 No other travel since [place]. No side effects from his medications and he had not been sexually active. Today, he is has been doing well. Marc set up his parents for their covid vaccinations next week. 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 He has had sex since last I saw him - oral, anal, everything so would like STI testing today. HIV diagnosis history: Date of Dx - [...] 24 hrs: BP Temp Temp src Pulse Weight 12/03/20 1116 90/52 36.6 ??C (97.8 ??F) Temporal 104 61.2 kg (135 lb) General appearance: alert, conversant, well-appearing. HEENT: no temporal wasting, anicteric sclera, normal conjunctiva, MMM Neck: No LAD Card: RRR, no murmurs Pulm: CTAB Abd: Soft, nontender, non-distended Skin: No rashes or jaundice MSK: unremarkable Neuro: Non-focal Psych: appropriate LABS Date CD4(%) VL 11/02/15 503(23%) - 05/07/16 - Undetectable 11/19/16 439(24%) - 09/16/17 389(34%) Undetectable 04/28/19 530(30%) - 09/01/19 403(27%) Undetectable 12/05/19 - <20 03/05/20 728(33%) <20 0808/14 - Undetected 11/26/20 600(34) Undetected Results for orders placed or performed in visit on 11/26/20 (from the past 168 hour(s)) IMMUNODEFICIENCY PANEL Collection Time: 11/26/20 14:07 Result Value Ref Range % CD3 74 62 - 87 % % CD4 34 (L) 35 - 63 % % CD8 36 (H) 10 - 35 % Absolute CD4 600 329-1,427 Cells/uL Results for orders placed or performed in visit on 11/26/20 (from the past 168 hour(s)) COMPLETE BLOOD COUNT WITH DIFFERENTIAL (AUTO) Collection Time: 11/26/20 14:07 Result Value Ref Range ABSOLUTE NEUTROPHIL COUN - [facility] 4.6 2.2 - 8.85 10e3/uL BASO # - [facility] 0.02 0.01 - 0.11 10e/uL BASO % - [facility] 0 0 - 2 % EOS # - [facility] 0.06 0.03 - 0.61 10e3/ul EOS % - [facility] 1 0 - 5 % GRAN % - [facility] 64.1 40 - 80 % HEMATOCRIT - [facility] 38.3 (L) 39.5 - 50.2 % HEMOGLOBIN - [facility] 12.8 (L) 13.8 - 17.3 g/dl IG# - [facility] 0.01 0 - 0.7 10e3/uL IG% - [facility] 0.1 0 - 0.9 % LYMPH # - [facility] 1.8 1.09 - 3.3 10e3/ul LYMPH% - [facility] 24.6 20 - 40 % MEAN CORPUSCULAR HGB - [facility] 28.3 27.6 - 33.0 pg MEAN CORPUSCULAR HGB CONC - [facility] 33.4 32.8 - 36.4 g/dL MEAN CELL VOLUME - [facility] 84.7 81 - 95 fl MONO # - [facility] 0.7 0.1 - 0.8 10e3/uL MONO% - [facility] 10.1 0 - 12 % PLATELET COUNT 317 141 - 377 10e3/ul RED BLOOD COUNT - [facility] 4.52 4.36 - 5.78 10e3/ul RED CELL DISTRI WIDTH - [facility] 14.4 <14.2 % WHITE BLOOD COUNT - [facility] 7.2 4.0 - 10.4 10e3/ul COMPREHENSIVE METABOLIC PANEL (CMP) Collection Time: 11/26/20 14:07 Result Value Ref Range ALBUMIN - [facility] 3.8 3.4 - 4.9 g/dL ALKALINE PHOSPHATASE - [facility] 77 38 - 126 U/L BILIRUBIN TOTAL - [facility] 0.3 0.2 - 1.3 mg/dL BUN - [facility] 21 10 - 26 mg/dL CALCIUM - [facility] 9.0 8.5 - 10.5 mg/dL Chloride 100 96 - 110 mmol/L CO2 Total 28 21 - 32 mEq/L CREATININE 1.04 0.66 - 1.25 mg/dL eGFR >60 Anion Gap 10 0 - 18 GLUCOSE - [facility] 109 (H) 70 - 100 mg/dL Potassium 4.7 3.5 - 5.0 mEq/L Sodium 138 136 - 145 mEq/L TOTAL PROTEIN - [facility] 6.7 6.2 - 8.2 gm/dL SGOT/AST - [facility] 20 17 - 59 U/L SGPT/ALT - [facility] 15 0 - 50 U/L URINALYSIS - [facility] Collection Time: 11/26/20 14:07 Result Value Ref Range URINE APPEARANCE - [facility] Clear CLEAR URINE BILIRUBIN - DIPSTICK - [facility] Negative NEGATIVE URINE BLOOD - [facility] Negative NEG URINE COLOR - [facility] Yellow YELLOW URINE GLUCOSE - DIPSTICK - [facility] Negative NEGATIVE URINE KETONE - [facility] Negative NEGATIVE URINE LEUK ESTERASE - [facility] Negative NEG URINE NITRITE - DIPSTICK - [facility] Negative NEG URINE PH - [facility] 7.0 4.0 - 8.0 URINE PROTEIN - DIPSTICK - [facility] Negative NEG URCULTIF+? - [facility] No Culture Indicated URINE SPECIFIC GRAVITY - [facility] 1.020 1.001 - 1.035 URINE UROBILINOGEN - DIPSTICK - [facility] 0.2 0.2 - 1.0 HIV 1 RNA QUANTITATION Collection Time: 11/26/20 14:07 Result Value Ref Range HIV-1 RNA QUANT - [facility] Undetected Undetected IMPRESSION AND PLAN: 54 y/o M with HIV and h/o coccidioidomycosis here for follow up care. 1) HIV - doing well. Safety labs done last week. All stable. - Currently on Genvoya, no issues - Last CD4 count 600(34%) - Last HIV viral load undetectable - Sexual activity: Yes since last visit - G/C (postive 06/23/19) - RPR (nonreactive 09/01/19) - CD4 Q3-6 months (last 11/26/20) - VL Q3-6 months (last 11/26/20) - CMP Q3-6 months (last 11/26/20) 2) Health maintenance - Lipids Q6-12 months (last 05/01/20) - A1C Q6-12 months (last 12/05/19) - UA Q6 months (if on TAF/TDF) (last 11/26/20) - Anal cancer screening: negative 2014. Would like to continue annual screening. 3) Immunizations MMR - 05/30/19: Mumps IgG [...] 03/07/20 Shingrix - #1 12/15/19, #2 06/04/20 Other Orders Placed This Visit Procedures ??? [facility] Sites, Chlamydia trachomatis and Neisseria gonorrhoea, Amplified RNA ??? Mis Sites, Chlamydia trachomatis and Neisseria gonorrhoea, Amplified RNA ??? Chlamydia/N. gonorrhoeae Amplified RNA Med Orders Placed This Visit and Additions to the Medication List Medications ??? qudcvcd-fec-plija-tenof ALAFEN (GENVOYA) [phone] mg tablet Sig: Take 1 Tab by mouth daily for 90 days. Dispense: 90 Tab Refill: 3 Lilian Rushing MD, MPH [facility] Infectious Disease Office: [phone] documented in this encounter Miscellaneous Notes Result QuickNote - Aissatou Iraheta RN - 12/03/2020 1100 EST See TE, reviewing per ID protocol. documented in this encounter Plan of Treatment Upcoming Encounters Date Type Specialty Care Team Description 04/14/2022 Office Visit Infectious Disease Lilian Rushing MD [address] [place] [address], [address] [place] [address] (Wo rk) Scheduled Orders Name Type Priority Associated Diagnoses Order S chedule N. GONORRHOEAE AND Microbiology Routine Asymptomatic HIV Order ed: CHLAMYDIA TRACHOMATIS, infection ([facility]) 12/03/2020 [facility], AMPLIFIED High risk homosexua l RNA behavior N. GONORRHOEAE AND Microbiology Routine Asymptomatic HIV Order ed: CHLAMYDIA TRACHOMATIS, infection ([facility]) 12/03/2020 [facility], AMPLIFIED High risk homosexua l RNA behavior CHLAMYDIA/N. Microbiology Routine Asymptomatic HIV Ordered: GONORRHOEAE AMPLIFIED infection ([facility]) 12/03/2020 RNA High risk homosexual behavior documented as of this encounter Procedures Procedure Name Priority Date/Time Associated Diagnosis Comme nts MISCELLANEOUS TEST, Routine 12/03/2020 18:57 Asymptomatic HIV Results for this GREEN EST infection ([facility]) procedur e are in the results section. MISCELLANEOUS TEST, Routine 12/03/2020 11:45 Asymptomatic HIV Results for this GREEN EST infection ([facility]) procedur e are in the results section. CHLAMYDIA/GC AMPLIFIED Routine 12/03/2020 11:45 Asymptomatic H IV Results for this [facility] EST infection ([facility]) procedur e are in the results section. MISCELLANEOUS TEST, Routine 12/03/2020 11:40 Asymptomatic HIV Results for this GREEN EST infection ([facility]) procedur e are in the results section. documented in this encounter Results (ABNORMAL) MISCELLANEOUS TEST, DUMONT (12/03/2020 18:57 EST) [facility] MISCELLANEOUS TEST - SEE BELOW (A) () [facility] Comment: [facility] Test ? Result ?? Flag ??Unit ??RefValue ------ [facility] C trach/N gonor Amplified RNA ??SOURCE: ?THROAT ?C. trach, Misc, Amplified ?Negative ? Negative ?RNA ADDITIONAL INFORMATION ------ This report is intended for use in clinical monitoring and management of patients. ??It is not intended for use i n medical-legal applications. This test has been modified from the food safety director's instructions. ??Its performance characteristics were determined by [facility] in a manner consistent with CLIA requirements. ??This test has not been cleared or appr sylvester by the U.S. Food and Drug Administration. ??SOURCE: ?THROAT ?N. gonorr, Misc, Amplified ?? Positive ??A ?Negative ?RNA ADDITIONAL INFORMATION ------ This report is intended for use in clinical monitoring and management of patients. ??It is not intended for use i n medical-legal applications. This test has been modified from the food safety director's instructions. ??Its performance characteristics were determined by [facility] in a manner consistent with CLIA requirements. ??This test has not been cleared or appr sylvester by the U.S. Food and Drug Administration. Test Performed by: [facility] - [address] [address] Portrait Artist: Pritesh Mcgee M.D. Ph.D.; CLIA# [id number] Specimen Performing Organization Address City/State/ZIP Code Phon e Number [facility] [address] [place] [address] MISCELLANEOUS TEST, DUMONT (12/03/2020 11:45 EST) [facility] MISCELLANEOUS TEST - SEE BELOW () [facility] Comment: [facility] Test ? Result ?? Flag ??Unit ??RefValue ------ T.vaginalis, Misc, Amplified RNA ??SOURCE: ?URINE ?T.vaginalis, Misc, ? Negative ? Negative ?amplified RNA ADDITIONAL INFORMATION ------ This test has been modified from the food safety director's instructions. Its performance characteristics were determined by [facility] in a manner consistent with CLIA requirements. This test has not been cleared or approv ed by the U.S. Food and Drug Administration. Test Performed by: [place] [address] Portrait Artist: Pritesh Mcgee M.D. Ph.D.; CLIA# [id number] Specimen Performing Organization Address [facility] Phon e Number [facility] [address] [place] [phone] CHLAMYDIA/GC AMPLIFIED PROBE (12/03/2020 11:45 EST) Chlamydia Result Negative Negative [facility] GC Result Negative Negative [facility] Comment: [facility] Source:URINE Test performed or referred by The [address] [address] SPECIMEN DESCRIP - DNR () [facility] Specimen Performing Organization Address [facility] Phon e Number [facility] [address] [place] [address] MISCELLANEOUS TEST, DUMONT (12/03/2020 11:40 EST) MISCELLANEOUS TEST - SEE BELOW () [facility] Comment: [facility] Test ? Result ?? Flag ??Unit ??RefValue ------ Misc C trach/N gonor Amplified RNA ??SOURCE: ?RECTUM ?C. trach, Misc, Amplified ?Negative ? Negative ?RNA ADDITIONAL INFORMATION ------ This report is intended for use in clinical monitoring and management of patients. ??It is not intended for use i n medical-legal applications. This test has been modified from the food safety director's instructions. ??Its performance characteristics were determined by [facility] in a manner consistent with CLIA requirements. ??This test has not been cleared or appr sylvester by the U.S. Food and Drug Administration. ??SOURCE: ?RECTUM ?N. gonorr, Misc, Amplified ?? Negative ? Negative ?RNA ADDITIONAL INFORMATION ------ This report is intended for use in clinical monitoring and management of patients. ??It is not intended for use i n medical-legal applications. This test has been modified from the food safety director's instructions. ??Its performance characteristics were determined by [facility] in a manner consistent with CLIA requirements. ??This test has not been cleared or appr sylvester by the U.S. Food and Drug Administration. Test Performed by: [facility] [address] [place] [address] Portrait Artist: Pritesh Mcgee M.D. Ph.D.; CLIA# [id number] Specimen Performing Organization Address City/State/[facility] Code Phon e Number [facility] [address] [place] [address] documented in this encounter Visit Diagnoses Diagnosis Asymptomatic HIV infection (HCC) - Prima ry Asymptomatic human immunodeficiency viru s (HIV) infection status Medication monitoring encounter Encounter for therapeutic drug monitorin g High risk homosexual behavior Problems related to high-risk sexual beh avior documented in this encounter Discontinued Medications Medication Sig Discontinue Reason Start Date End Date nhxyclq-iua-deijy-tenof Take 1 Tab by mouth Reorder 06/04/2020 12/03/2020 ALAFEN (GENVOYA) daily for 90 days. [phone] mg tabletIndications: HIV infection documented as of this encounter Care Teams Solution Mixer Relationship Specialty Start Date End Date Gil-Marcy Santos, PCP - General Family Medicine - Primary 1 11/13/18 REFRIGERATING OILER Care [address] [place] [phone] documented as of this encounter
--- OUTSIDE RECORDS SUMMARY | 2022-03-10 21:42 | XMS_ITS | Encounter Summary ---
:1965 Author Organization [facility] Address [address] [place] [address] Care Team Providers Name Role Phone Marcy Alvarenga RADIOLOGY MANAGER Primary Care Provider [phone] Reason for Visit Reason Onset Date Comments Billing Question 11/22/2019 Encounter Details Date Type Department Care Team Description 11/22/2019 Telephone [facility] [place]ian Rushing MD Billing Question Infectious Disease 130 [facility] 130 [facility] [address] [place], [place] [id number] [place] [phone] (Wo rk) Social History Tobacco Use Types [...] Telephone Encounter - Aissatou Iraheta RN - 11/30/2019 0834 EST Pt has appt tomorrow. I will discuss insurance question at that time. elephone Encounter - Flaquita Do - 11/22/2019 1435 EST Pt states that he needs to talk to you about his insurance. He will only talk to you as he states you know what this is about. documented in this encounter Plan of Treatment Upcoming Encounters Date Type Specialty Care Team Description 04/14/2022 Office Visit Infectious Disease Lilian Rushing MD [address] [place] [address] [address] [place] [phone] (Wo rk) documented as of this encounter Visit Diagnoses Not on filedocumented in this encounter Care Teams Grinder Set Up Operator External Relationship Specialty Start Date End Date Gil-Marcy Santos, PCP - General Family Medicine - Primary 1 11/13/18 RADIOLOGY MANAGER Care [address] [place] [address] 2 [place] [address] documented as of this encounter
--- OUTSIDE RECORDS SUMMARY | 2022-03-10 21:42 | XMS_ITS | Encounter Summary ---
:1965 Author Organization [facility] Address [address] [place] [address] Care Team Providers Name Role Phone Marcy Alvarenga FIREARMS ASSEMBLY SUPERVISOR Primary Care Provider [phone] Reason for Visit Reason Comments Follow-up 3m f/u HIV Encounter Details Date Type Department Care Team Description 06/04/2020 Office Visit [facility] - Lilian Rushing Asy mptomatic HIV infection ([facility]) (Primary Dx); [facility] Infectious MD Encounter for immunization; Disease [facility] Medication monitoring encounter [address] [facility], [address] [place] [address] [place] [phone] Social History Tobacco Use Types Packs/Day [...] Sign Reading Time Taken Comments Blood Pressure 112/58 06/04/2020 1114 EDT Pulse 72 06/04/2020 1114 EDT Temperature 36.2 ??C (97.2 ??F) 06/04/2020 1114 EDT Respiratory Rate - - Oxygen Saturation [...] Sig Dispensed Refills Start Date End Date lbljkai-xgq-bnzgy-tenof Take 1 Tab by mouth 90 Tab 1 07/202012/03/2020 ALAFEN (GENVOYA) daily for 90 days. [phone] mg tabletIndications: HIV infection documented in this encounter Progress Notes Feng Osman RN - 06/04/2020 1100 EDT Venipuncture: Blood drawn via butterfly needle from R Antecubital per protocol, DSD applied, tiger and purple tube(s) sent to lab per order. Patients response tolerated well. Immunization: I. Shingrix vaccine per order. II. Vaccine administered intramuscularly to left deltoid III. Patient Education: VIS provided FENG OSMAN RN, 06/04/2020 11:57 Lilian Merino MD - 06/04/2020 1100 EDT FOLLOW-UP VISIT NOTE HIV/AIDS CC: Ha Soria is a 54 y.o. for his follow-up HIV visit. HPI: ??Patient is being seen today for onging care of HIV. Currently on Genvoya and tolorating it well. HIV Dx in 11/2014. Stribild started then. Switched to Genvoya 05/2016 due to increasing creatinine.Remote h/o coccidioidomycosis. He move to [facility] from [place] in the summer of 2018 to take care of his aging parents, but is planning on moving at some point. 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 He is now set up with [facility] for his HIV meds. 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 Found out he needs a knee replacement. He was flying down to [place] to move his belonging out of his brothers house into storage. He c/o of ongoing diarrhea, culture returned negative. Covid test was also negative. He was not sexually active and the Genvoya was going fine. Today, he says his work is open again so he's been working two days a week. No other travel besides [place] as mentioned the last time. No sexual activity since I saw him last. No side effects. He says the diarrhea is better. He had a steroid shot in the knee on Thursday - feeling better. He had some plantarwarts taken care of recently that wasn't fun. HIV diagnosis history: Date of Dx - 11/2014 Risk Factor(s) - MSM Tobi CD4 count - unknown OI History - none known Resistance History - unknown Current Meds and Medication History - Genvovivi, previously on Stribild (2014) [id number] - unknown [...] for the past 24 hrs: BP Temp Pulse 06/04/20 1114 112/58 36.2 ??C (97.2 ??F) 72 General appearance: alert, conversant, well-appearing. HEENT: no temporal wasting, anicteric sclera, normal conjunctiva, MMM Neck: No LAD Card: RRR, no murmurs Pulm: CTAB Abd: Soft, nontender, non-distended Ext: No LE edema Skin: No rashes or jaundice MSK: unremarkable Neuro: Non-focal Psych: appropriate LABS Date CD4(%) VL 11/02/15 503(23%) - 05/07/16 - Undetectable 11/19/16 439(24%) - 09/16/17 389(34%) Undetectable 04/28/19 530(30%) - 09/01/19 403(27%) Undetectable 12/05/19 - <20 (but detected) 03/05/20 728(33%) <20 Lab Results Component Value Date NA 134 (L) 03/07/2020 K 4.5 03/07/2020 CL 99 03/07/2020 CO2 27 03/07/2020 ANIONGAP 8 03/07/2020 BUN 31 (H) 03/07/2020 CREATININE 0.88 09/01/2019 CALCGFR >60 03/07/2020 GLU 103 (H) 03/07/2020 CA 9.6 03/07/2020 BILT 0.3 09/01/2019 SGOT 17 09/01/2019 SGPT 21 09/01/2019 APS 60 09/01/2019 PROT 6.9 09/01/2019 SPEALB 3.7 09/01/2019 IMPRESSION AND PLAN: 54 y/o M with HIV and h/o coccidioidomycosis here for follow up care. 1) HIV - doing well. Safety labs today. Refill sent. Not currently sexually active so no STI testing. - Currently on Genvoya, no issues - Last CD4 count 728(33%) - Last HIV viral load <20 but detected - Sexual activity: not sexually active - G/C (postive 06/23/19) - RPR (nonreactive 09/01/19) - CD4 Q3-6 months (last 03/05/20) - VL Q3-6 months (last 03/05/20) - CMP Q3-6 months (last 09/01/19) 2) Health maintenance - Lipids Q6-12 months (last 05/01/20) - A1C Q6-12 months (last 12/05/19) - UA Q6 months (if on TAF/TDF) (last 09/01/19) - Anal cancer screening: negative 2014. Would like to continue annual screening, starting at next visit. 3) Immunizations MMR - 05/30/19: Mumps IgG pos, Rubella IgG pos, Rubeola IgG neg (MMR given 09/01/19) Varicella - IgG pos (8/5/19) PCV13 given 01/24/16, PPSV23 given 12/05/19- due for repeat PPSV23 5 years after last PPSV23 Hep A - immune per records Hep B - SAb +, SAg neg (06/23/19) MCV4 - #1 given 05/30/19, #2 given 12/05/19, then booster Q5 years Flu - annually, given 09/01/19 Men B - not indicated Hib - not indicated Tdap - 03/07/20 Shingrix - 12/15/19, due for #2 (will give today) Other Orders Placed This Visit Procedures ??? Shingrix (Zoster Vaccine, Recombinant) IM ??? HIV 1 RNA Quantitation ??? Comprehensive Metabolic Panel (CMP) ? ? Urine Chemical (Dip) & Sediment (Micro) without reflex to culture Med Orders Placed This Visit and Additions to the Medication List Medications ??? tydgnsa-zto-podbf-tenof ALAFEN (GENVOYA) [phone] mg tablet Sig: Take 1 Tab by mouth daily for 90 days. Dispense: 90 Tab Refill: 1 Lilian Rushing MD, MPH [facility] Infectious Disease Office: [phone] documented in this encounter Miscellaneous Notes Result Feng Sutherland RN - 06/04/2020 1100 EDT Message left for patient relaying that lab results were normal with no current change to plans needed. Patient to call office with any questions or concerns. esult Feng Sutherland RN - 06/04/2020 1100 EDT Message left for patient to call back regarding lab results. documented in this encounter Plan of Treatment Upcoming Encounters Date Type Specialty Care Team Description 04/14/2022 Office Visit Infectious Disease Lilian Rushing MD 130 [facility], [address] [place] [address] (Wo rk) Scheduled Orders Name Type Priority Associated Diagnoses Order S chedule HIV 1 RNA QUANTITATION Lab Routine Asymptomatic HIV O rdered: 06/04/2020 infection ([facility]) URINE CHEMICAL (DIP) & Lab Routine Asymptomatic HIV O rdered: 06/04/2020 SEDIMENT (MICRO) WITHOUT infection ([facility]) REFLEX TO CULTURE documented as of this encounter Procedures Procedure Name Priority Date/Time Associated Diagnosis Comme nts URINALYSIS - [facility] Routine 06/04/2020 16:06 Asymptomatic HIV Re sults for this EDT infection ([facility]) procedur e are in the results section. HIV 1 RNA QUANTITATION Routine 06/04/2020 16:06 Asymptomatic H IV Results for this EDT infection ([facility]) procedur e are in the results section. COMPREHENSIVE Routine 06/04/2020 16:06 Asymptomatic HIV Result s for this METABOLIC PANEL (CMP) EDT infection ([facility]) procedure are in the results section. documented in this encounter Results HIV 1 RNA QUANTITATION (06/04/2020 16:06 EDT) [facility] HIV-1 RNA QUANT - Undetected Undetected [facility] Comment: [facility] INFCE Result Units: copies/mL Result in log copies/mL is Undetected. ADDITIONAL INFORMATION ------ The quantification range of this assay is 20 to 10,000 ,000 copies/mL (1.30 log to 7.00 log copies/mL). Testing wa s performed using the rafael HIV-1 test ([employer] with the rafael 6800 System. This test has been modified from the plastics and composites inspector's instructions. Its performance characteristics were determined by [facility] in a manner consistent with CLIA requirements. This test has not been cleared or approv ed by the U.S. Food and Drug Administration. Test Performed by: [facility] - [address] [address] Grill Chef: Pritesh Mcgee M.D. Ph.D.; CLIA# [id number] Specimen Performing Organization Address City/[facility]/ZIP Code Phon e Number [facility] [address] [place] [id number] URINALYSIS - [facility] (06/04/2020 16:06 EDT) Pathologist Sig nature URINE APPEARANCE - Clear CLEAR [facility] URINE BILIRUBIN - Negative NEGATIVE [facility] DIPSTICK [facility] URINE BLOOD - [facility] Negative NEG [facility] URINE COLOR - [facility] Yellow YELLOW [facility] URINE GLUCOSE - Negative NEGATIVE [facility] DIPSTICK [facility] URINE KETONE - [facility] Negative NEGATIVE [facility] URINE LEUK ESTERASE - Negative NEG [facility] URINE NITRITE - Negative NEG [facility] DIPSTICK [facility] URINE PH - [facility] 6.5 4.0 - 8.0 [facility] URINE PROTEIN - Negative NEG [facility] DIPSTICK [facility] URINE SPECIFIC GRAVITY 1.020 1.001 - 1.035 [facility] M ED [facility] URINE UROBILINOGEN - 0.2 0.2 - 1.0 [facility] DIPSTICK [facility] Specimen Performing Organization Address City/[facility]/ZIP Code Phon e Number [facility] [address] [place] [address] (ABNORMAL) COMPREHENSIVE METABOLIC PANEL (CMP) (06/04/2020 16:06 EDT) ALBUMIN - [facility] 3.5 3.4 - 4.9 [facility] g/dL [facility] ALKALINE 69 38 - 126 U/L [facility] PHOSPHATASE - [facility] BILIRUBIN TOTAL <0.2 (L) 0.2 - 1.3 [facility] mg/dL [facility] BUN - [facility] 25 10 - 26 mg/dL [facility] CALCIUM - [facility] 9.2 8.5 - 10.5 [facility] mg/dL [facility] Chloride 102 96 - 110 [facility] mmol/L [facility] CO2 Total 29 21 - 32 mEq/L [facility] CREATININE 0.91 0.66 - 1.25 [facility] mg/dL [facility] eGFR >60 [facility] Comment: [facility] Chronic renal impairment is defined as GFR <60 Multiply result by 1.210 for patients . Anion Gap 8 0 - 18 [facility] GLUCOSE - [facility] 97 70 - 100 [facility] mg/dL [facility] Potassium 4.6 3.5 - 5.0 [facility] mEq/L [facility] Sodium 139 136 - 145 [facility] mEq/L [facility] TOTAL PROTEIN - 6.3 6.2 - 8.2 [facility] gm/dL [facility] SGOT/AST - [facility] 22 17 - 59 U/L [facility] SGPT/ALT - [facility] 26 0 - 50 U/L [facility] Specimen Blood - Venous blood (substance) Performing Organization Address City/State/ZIP Code Phon e Number [facility] [address] [place] [address] documented in this encounter Visit Diagnoses Diagnosis Asymptomatic HIV infection (HCC) - Prima ry Asymptomatic human immunodeficiency viru s (HIV) infection status Encounter for immunization Need for other specified prophylactic va ccination against single bacterial disease Medication monitoring encounter Encounter for therapeutic drug monitorin g documented in this encounter Discontinued Medications Medication Sig Discontinue Reason Start Date End Date llpcfta-jnk-xjjqc-tenof Take 1 Tab by mouth Reorder 04/18/2020 06/04/2020 ALAFEN (GENVOYA) daily for 90 days. [phone] mg tabletIndications: HIV infection documented as of this encounter Orders Immunization/Injection Count Last Ordered Date First O rdered Date SHINGRIX (ZOSTER VACCINE, RECOMBINANT) IM 1 2019 documented in this encounter Care Teams Patternmaker Grader Relationship Specialty Start Date End Date Marcy Alvarenga, PCP - General Family Medicine - Primary 1 11/13/18 FIREARMS ASSEMBLY SUPERVISOR Care [address] [place] [phone] documented as of this encounter
--- OUTSIDE RECORDS SUMMARY | 2022-03-10 21:42 | XMS_ITS | Encounter Summary ---
:1965 Author Organization [facility] Address [address] [place] [address] Care Team Providers Name Role Phone Marcy Alvarenga TOP FLAVOR ATTENDANT Primary Care Provider [phone] Encounter Details Date Type Department Care Team Description 03/07/2020 Travel Social History Tobacco Use Types Packs/Day [...] Office Visit Infectious Disease Lilian Rushing MD [address] [place] [address], [address] [place] [address] (Wo rk) documented as of this encounter Visit Diagnoses Not on filedocumented in this encounter Care Teams Remedial Masseur Relationship Specialty Start Date End Date Marcy Alvarenga, PCP - General Family Medicine - Primary 1 11/13/18 TOP FLAVOR ATTENDANT Care [address] [place] [phone] documented as of this encounter
--- OUTSIDE RECORDS SUMMARY | 2022-03-10 21:42 | XMS_ITS | Encounter Summary ---
:1965 Author Organization [facility] Address [address] [place] [address] Care Team Providers Name Role Phone Marcy Alvarenga VP CLINICAL Primary Care Provider [phone] Encounter Details Date Type Department Care Team Description 03/07/2020 Lab Requisition [facility] Outr Resulting Lab, Pathology & Laboratory Provider [facility] [address] [place] [address] Social History Tobacco Use Types Packs/Day Years [...] Visit Infectious Disease Lilian Rushing MD [address] [place] [address], [address] [place] [address] (Wo rk) documented as of this encounter Procedures Procedure Name Priority Date/Time Associated Diagnosis Comme nts T CELL SUBSETS Routine 03/07/2020 13:30 EDT Resul ts for this procedure are i n the results section . documented in this encounter Results (ABNORMAL) IMMUNODEFICIENCY PANEL (03/07/2020 13:30 EDT) Pathologist Sig nature % CD3 75 62 - 87 % [facility] % CD4 33 (L) 35 - 63 % [facility] % CD8 37 (H) 10 - 35 % [facility] Absolute CD4 728 329-1,427 Cells/uL [facility] Specimen Blood - Venous blood (substance) Performing Organization Address City/State/ZIP Code Phon e Number [facility] [address] [place] [address] SERVICES documented in this encounter Visit Diagnoses Not on filedocumented in this encounter Additional Health Concerns Infection Onset Date Last Indicated Resolved Time MRSAComment: Hx of [facility]-39/23/2020 08/29/2021 08/29/20 21 C. Stoner 12/31/21 documented as of this encounter Care Teams Insurance Follow Up Specialist Relationship Specialty Start Date End Date Gil-Marcy Santos, PCP - General Family Medicine - Primary 1 11/13/18 VP CLINICAL Care [address] [place] [phone] documented as of this encounter
--- OUTSIDE RECORDS SUMMARY | 2022-03-10 21:42 | XMS_ITS | Encounter Summary ---
:1965 Author Organization [facility] Address [address] [place] [address] Care Team Providers Name Role Phone Marcy Alvarenga X RAY EQUIPMENT SERVICER Primary Care Provider [phone] Encounter Details Date Type Department Care Team Description 06/12/2020 Travel Social History Tobacco Use Types Packs/Day [...] been in contact with No / Unsure 06/12/2020 10:29 EDT someone who was confirmed or suspected [...] Infectious Disease Lilian Rushing MD [address] [facility], [address] [place] [phone] (Wo rk) documented as of this encounter Visit Diagnoses Not on filedocumented in this encounter Care Teams Lens Hardener Relationship Specialty Start Date End Date Marcy Alvarenga, PCP - General Family Medicine - Primary 1 11/13/18 X RAY EQUIPMENT SERVICER Care [address] [facility] [address] [place] [phone] documented as of this encounter
--- OUTSIDE RECORDS SUMMARY | 2022-03-10 21:42 | XMS_ITS | Encounter Summary ---
:1965 Author Organization [facility] Address [address] [place] [address] Care Team Providers Name Role Phone None, Provider Primary Care Provider Unavailable Reason for Visit Reason Onset Date Comments Abnormal Lab 06/24/2019 Encounter Details Date Type Department Care Team Description 06/24/2019 Telephone [facility] Urgent Sandra Pulliam RN Abnormal Lab Care - January wilcox [address] [place] [address] Social History Tobacco Use Types Packs/Day Years [...] this encounter Miscellaneous Notes Telephone Encounter - Vita Morris RN - 06/24/2019 1607 EDT Senior Construction Manager called and informed pt of positive gonorrhea test. Pt verbalized understanding. elephone Encounter - Sandra Pulliam RN - 06/24/2019 1506 EDT Left generic call back message on answering machine. elephone Encounter - Crys Hebert MD - 06/24/2019 1448 EDT He was treated yesterday for gonorrhea. He is positive for gonorrhea. He was negative for chlamydia.He needs to notify his sexual partner. His other lab tests were negative. elephone Encounter - Sandra Pulliam, RN - 06/24/2019 1349 EDT Sabiha from lab calls to report Negative Chlamydia, POSITIVE Gonorrhea. documented in this encounter Plan of Treatment Upcoming Encounters Date Type Specialty Care Team Description 04/14/2022 Office Visit Infectious Disease Lilian Rushing MD [address] [place] [address], [address] [place], [place] [phone] (Wo rk) documented as of this encounter Visit Diagnoses Not on filedocumented in this encounter Care Teams Pole Shaver Relationship Specialty Start Date End Date None, Provider PCP - General 06/23/19 09/12/19 documented as of this encounter
--- OUTSIDE RECORDS SUMMARY | 2022-03-10 21:42 | XMS_ITS | Encounter Summary ---
:1965 Author Organization [facility] Address [address] [place] [address] Care Team Providers Name Role Phone Marcy Alvarnega OB/GYN NURSE Primary Care Provider [phone] Reason for Visit Reason Comments Follow-up Plantar warts Follow-up Encounter Details Date Type Department Care Team Description 06/12/2020 Office Visit [facility] - Perlita Mcmahon P lantar verruca (Primary Dx); [facility] Orthopedics & DPM Digital mucous cyst of toe Podiatry [address], [place] [address] [place] [address] [place], [place] [address] (Wo rk) Social History Tobacco Use Types [...] Taken Comments Blood Pressure - - Pulse 116 06/12/2020 1029 EDT Temperature 36.9 ??C (98.4 ??F) 06/12/2020 1029 EDT Respiratory Rate - - Oxygen Saturation 95% 06/12/2020 1029 EDT Inhaled Oxygen Concentration - - Weight [...] documented as of this encounter Progress Notes Perlita Mcmahon, DINAH - 06/12/2020 1015 EDT CHIEF COMPLAINT: Chief Complaint Patient presents with ??? Right Foot - Follow-up Plantar warts ??? Left Foot - Follow-up SUBJECTIVE: Ha Soria is a 54 y.o. male who presents For follow up bilateral 2nd toe cyst and plantar verruca vbilateral feet. Was seen on 05/18 and cantharone was placed on bilateral warts. Didhave some tenderness to left hallux with treatment, but otherwise he tolerated well. This improved after a few days. Some tenderness to cyst on bilatearl 2nd toes. Some drainage on left foot. OBJECTIVE: Pulse (!) 116 Temp 36.9 ??C (98.4 ??F) (Oral) SpO2 95% Vascular: palapble pulses bilateral feet. Normal hair growth. Musculoskeletal: distal IPJ bilateral 2nd toes. Semi-flexible. No pain with attempted ROM. Neurological: protective sensation grossly intact to light touch. Dermatologic: Raised hyperkeratotic lesion with punctate capillary centers noted to Left plantar 1stmetatarsal improved in size. 3 separate lesions plantar hallux, each 0.3x0.3cm, most proximal one is0.3x0.3cm, and almost entire resolution Of two distal. Right plantar hallux resolved. No pain to palpation. At dorsal 2nd DIPJ, there are well circumscribed cysts. Drainage to left foot, none to right. No surrounding erythema, edema warmth. Overlying hyperkeratosis. To right foot, approximately 0.1x02cm. ASSESSMENT/PLAN: Plantar verruca Explained findings and discussed treatment options. Reviewed viral nature and recalcitrance of plantar verruca. Decision was to continue Cantharone. 2nd treatment, only left foot verruca, resolved on right hallux. Lesions were debrided of all nonviable tissue. Cantharone applied, allowed to dry, and co jessica with tape.On plantar 1st met , given tolerance I did treat the entire lesion. Discussed post procedure course, including up to [...] mucoid cyst: bilateral dorsal IPJ. -reviewed findings, left has self-drained, monitor closely. Compressive dressing to be placed. Reviewed treatment options: close monitoring, aspiration, surgical excision. Patient would like to proceedwith aspiration on right foot, we did discuss given the size, there is a high recurrence, patient understands. Should high consider surgical excision, would perform joint arthroplasty as well at DIPJ bilateral 2nd toe. Indication: symptomatic cyst right foot. Prep: We cleaned the skin with alcohol.. Anesthesia: anesthetized with topical lidocaine. Guidance: We used Palpation for guidance. Aspiration: Following adequate anesthesia, advanced an 18 gauge needle into the fluid collection. Yield: We aspirated a minute amount of cystic fluid. Effect:This decompressed the fluid collection and relieved discomfort. Disposition: Mildly compressive dressing of bandaid and coban dressing placed to foot. Should keep dressing on for 24 hours. -offloading pads, and monitor closely, will re-evaluate in 2 weeks. Will make consideration for MRI evaluation This note was prepared using voice recognition software and the EMR. There may be inadvertent errorsand omissions. Perlita Mcmahon DPM 06/12/2020 documented in this encounter Plan of Treatment Upcoming Encounters Date Type Specialty Care Team Description 04/14/2022 Office Visit Infectious Disease Lilian Rushing MD [address] [facility] [address] [place] [address] (Wo rk) documented as of this encounter Visit Diagnoses Diagnosis Plantar verruca - Primary Plantar wart Digital mucous cyst of toe documented in this encounter Care Teams House Carpenter Relationship Specialty Start Date End Date Gil-Marcy Santos, PCP - General Family Medicine - Primary 1 11/13/18 OB/GYN NURSE Care [address] [place] [address] [address] [place] [address] documented as of this encounter
--- OUTSIDE RECORDS SUMMARY | 2022-03-10 21:42 | XMS_ITS | Encounter Summary ---
:1965 Author Organization [facility] Address [address] [place] [address] Care Team Providers Name Role Phone Marcy Alvarenga PADDLE DYEING MACHINE OPERATOR Primary Care Provider [phone] Reason for Referral Consult (Routine) - Closed Specialty Diagnoses / Procedures Referred By Contact Refer red To Contact Orthopedic Surgery Diagnoses Injury of left knee, initial encounter Sobia Brower MD [facility] [address] [place] [address] [address] [place] [address] [place] [address] Referral ID Status Reason Start Date Expiration Date Visits V isits Requested Authorized [id number] Closed Specialty 11/20/2019 1 1 Services Required Question Answer Reason for Request: Left knee twist injury 11/20 with sig effusion; + anterior drawer sign and lateral knee tender ness. history significant for prior coccoidiomycosis infection l eft knee and +HIV status. Suspect ACL and menisucs acute injury. X RAY neg in EC for acute bony Reason for Visit Reason Comments Knee Injury shoveling snow last nght and twisted left knee- has had coccidiomycosis in a wayne's cyst in that kn ee with multiple subsequent sequela Encounter Details Date Type Department Care Team Description 11/20/2019 Walk-In [facility] - Sobia Brower, Inj ury of left knee, initial encounter (Primary Dx); [facility] [place] [facility] - MD Instability of left knee joint [place] [address] [place] [address] [address] [phone] [place] [address] Social History Tobacco Use Types Packs/Day Years [...] Sign Reading Time Taken Comments Blood Pressure 110/60 11/20/2019 1400 EST Pulse 70 11/20/2019 1400 EST Temperature 37.4 ??C (99.4 ??F) 11/20/2019 1400 EST Respiratory Rate 18 11/20/2019 1400 EST Oxygen Saturation - - Inhaled Oxygen Concentration - - Weight - - Height - - Body Mass Index - - documented in this encounter Patient Instructions Patient InstructionsSobia Brower MD - 11/20/2019 13:45 EST You were seen for left knee injury which on exam is concerning for ACL and possibly mensicus injury. Continue to apply ice, elevate and use compression. Use a knee brace for support. Use crutches untilyou can walk without a limp. Ortho referral placed, you will get a call next week with an appointment. documented in this encounter Progress Notes Sobia Brower MD - 11/20/[address] [facility] Chief Complaint(s): Chief Complaint Patient presents with ??? Knee Injury shoveling snow last nght and twisted left knee- has had coccidiomycosis in a wayne's cyst in that knee with multiple subsequent sequela HPI: Reports that he twisted his left knee 11/19. Was shoveling, and left leg was planted, the load he wasshoveling was heavy, and caused him to twist his upper body with the left knee planted. [place] a stretch and a pop and then became nauseous. Reports pain worsening since the injury, and swelling immediately occurred. He has applied ice and elevated and has been using crutches to ambulate. Doesn't hurt until he applies weight on his leg. Feels unstable when he turns. He has a h/o coccidioidomycosis infection of left knee/Wayne's cyst. He has HIV, on medications and followed by ID. Undetectable viral load at present. ROS: No fevers that he is aware of . No night sweats which he reports was a sign last time that he had infection. Objective: Vitals and nursing notes reviewed Examination: BP 110/60 (BP Cuff Location: Left arm, BP Patient Position: Sitting, BP Cuff Sizes: Adult, regular) Pulse 70 Temp 37.4 ??C (99.4 ??F) Resp 18 General: no acute distress Gait: walking with crutches, difficult bearing weight left lower ext. Left knee: significant effusion. Lateral joint line tenderness. ACL laxity noted. Lateral pain with Dixie's. Limited flexion due to pain, pain with full ext. Non tender popliteal fossa. Skin: warm and dry Data reviewed with patient (past results): Last CBC 11/01 - normal WBC. undetectable level of HIV Assessment & Plan: 1. Injury of left knee, initial encounter XR KNEE LEFT 4 OR MORE VIEWS AMB CONS/FOLLOW UP ORTHOPEDICS 2. Instability of left knee joint XR KNEE LEFT 4 OR MORE VIEWS Print out of instructions and stretches. Patient Instructions You were seen for left knee injury which on exam is concerning for ACL and possibly mensicus injury. Continue to apply ice, elevate and use compression. Use a knee brace for support. Use crutches untilyou can walk without a limp. Ortho referral placed, you will get a call next week with an appointment. Discussed that I would defer MRI decision and ordering to ortho. documented in this encounter Plan of Treatment Upcoming Encounters Date Type Specialty Care Team Description 04/14/2022 Office Visit Infectious Disease Leyse, Lilian L, MD [address] [facility], [address] [place] [address] (Wo rk) Scheduled Orders Name Type Priority Associated Diagnoses Order S chedule XR KNEE LEFT 4 OR MORE Imaging Routine Injury of left olivia e, Ordered: 11/20/2019 VIEWS initial encounte r Instability of left knee joint Scheduled Referrals Name Type Priority Associated Order Schedule Diagnoses AMB CONS/FOLLOW UP Outpatient Referral Routine Injury of left Ordered: ORTHOPEDICS knee, initial 11/20/2019 encounter documented as of this encounter Procedures Procedure Name Priority Date/Time Associated Diagnosis Comme nts XR KNEE LEFT 4 OR 11/20/2019 15:30 Result s for this MORE VIEWS EST procedure are i n the results section. documented in this encounter Results XR KNEE LEFT 4 OR MORE VIEWS (11/20/2019 15:30 EST) Specimen Narrative [facility] - 11/20/2019 15:30 EST ? EXAM: RADIOLOGY EXPRESS CARE/EXP CARE KNE EX. D/ (1456) ? CLINICAL INFORMATION: ? S89.92XA, INJURY OF LEFT KNEE, M2 5.362, INSTABILITY OF LEFT KNEE ? JOINT, LEFT KNEE TWISTING INJURY 11/19/2019, EFFUSION AND LATERAL KNEE ? PAIN WITH INSTABILITY ? PROCEDURE INFORMATION: ? Exam: XR Left Knee ? Exam date and time: 11/20/2019 2:4 6 PM ? Age: 54 years old ? Clinical indication: Injury or tr auma; Fall; Initial encounter; ? Swelling (edema); Knee; Left; Add itional info: S89.92xa, injury of ? left knee, m25.362, instability o f left knee, joint, left knee ? twisting injury 11/19/2019, effusi on and lateral knee, pain with ? instability ? TECHNIQUE: ? Imaging protocol: XR Left knee. ? Views: 4 or more views. ? COMPARISON: ? No relevant prior studies availab le. ? FINDINGS: ? Bones/joints: The bones are intac t and normal in appearance. There ? is no evidence of acute or healin g fracture. There is ? tricompartmental osteoarthritis w ith joint space narrowing and ? marginal osteophyte formation, mo st pronounced in the medial ? compartment. There is a moderate knee joint effusion. ? Soft tissues: The soft tissues ar e otherwise within normal limits. ? IMPRESSION: ? Exam is positive for a moderate k nee joint effusion. No acute ? fracture is identified. Consider follow-up evaluation with MRI. ? REPORT SIGNED IN OTHER VENDOR SYSTEM 11/20/2019 ?Reported B y: Ashtyn Seaman MD ? CC: ? Transcribed Date/Time: 11/20/2019 (1530) ? Hand Shaper: ? Printed Date/Time: 11/20/2019 (15 30) ? PAGE 1 ? Nelly d Report ? Procedure Note Ashtyn Seaman MD - 11/30/2019 EXAM: RADIOLOGY EXPRESS CARE/EXP CARE K NE EX. D/ (1456) CLINICAL INFORMATION: S89.92XA, INJURY OF LEFT KNEE, M25.362, INSTABILITY OF LEFT KNEE JOINT, LEFT KNEE TWISTING INJURY 020, EFFUSION AND LATERAL KNEE PAIN WITH INSTABILITY PROCEDURE INFORMATION: Exam: XR Left Knee Exam date and time: 11/20/2019 2:46 PM Age: 54 years old Clinical indication: Injury or trauma; Fall; Initial encounter; Swelling (edema); Knee; Left; Additiona l info: S89.92xa, injury of left knee, m25.362, instability of left knee, joint, left knee twisting injury 11/19/2019, effusion and lateral knee, pain with instability TECHNIQUE: Imaging protocol: XR Left knee. Views: 4 or more views. COMPARISON: No relevant prior studies available. FINDINGS: Bones/joints: The bones are intact and normal in appearance. There is no evidence of acute or healing frac ture. There is tricompartmental osteoarthritis with izabela int space narrowing and marginal osteophyte formation, most pro nounced in the medial compartment. There is a moderate knee j oint effusion. Soft tissues: The soft tissues are othe rwise within normal limits. IMPRESSION: Exam is positive for a moderate knee izabela int effusion. No acute fracture is identified. Consider follow -up evaluation with MRI. REPORT SIGNED IN OTHER VENDOR SYSTEM 11/20/2019 Reported By: Ashtyn Seaman MD CC: Transcribed Date/Time: 11/20/2019 (9574 ) Hand Shaper: Printed Date/Time: 11/20/2019 (1075) PAGE 1 Signed Report Performing Organization Address City/State/ZIP Code Phon e Number [facility] documented in this encounter Visit Diagnoses Diagnosis Injury of left knee, initial encounter - Primary Instability of left knee joint documented in this encounter Care Teams Bedspread Seamer Relationship Specialty Start Date End Date Gil-Marcy Santos, PCP - General Family Medicine - Primary 1 11/13/18 PADDLE DYEING MACHINE OPERATOR Care [address] [place] [phone] documented as of this encounter
--- OUTSIDE RECORDS SUMMARY | 2022-03-10 21:42 | XMS_ITS | Encounter Summary ---
:1965 Author Organization [facility] Address [address] [place] [address] Care Team Providers Name Role Phone Marcy Alvarenga ACTING INSTRUCTOR Primary Care Provider [phone] Encounter Details Date Type Department Care Team Description 03/07/2020 Lab Requisition [facility] Outr Resulting Lab, Pathology & Laboratory Provider [facility] [address] [place] [address] Social History Tobacco Use Types Packs/Day Years [...] Office Visit Infectious Disease Lilian Rushing MD [address] [place] [address], [address] [place] [address] (Wo rk) documented as of this encounter Procedures Procedure Name Priority Date/Time Associated Diagnosis Comme nts COVID-[address] [facility] Today 03/07/2020 14:37 LAB PCR EDT COVID-19 TESTING Routine 03/07/2020 14:37 Results for this EDT procedure are i n the results section. documented in this encounter Results COVID-[address] [facility] LAB PCR (03/07/2020 14:37 EDT) Specimen Swab - Entire nasopharynx (body structur e) Performing Organization Address City/[facility] Phon e Number [facility] [address] [place] [address] SERVICES COVID-19 TESTING (03/07/2020 14:37 EDT) COVID-19 rt-PCR Negative Negative [facility] Result Comment: [facility] Negative results do not prec lude 2019-nCoV infection and should not be used as the sole basis for treatment or other patient management decisions. Negative results must be combined with clinical observa SERVICES tions, patient history, and epidemiological informatio n. This test was developed and its performance characteristics determined by [facility]. It has not been cleared or approved by the [place] Food and Drug Administration. FDA does not require this test to go through premarket FDA review. This t est is used for clinical purposes. It should not be regarded as investigational or for research. This laboratory is certified under the Clinical Laboratory Improvement Amendm ents (CLIA) as qualified to perform high complexity clinical laboratory testing. This test is based on the CD C COVID-19 Emergency Use Authorization (EUA) assay, with minor modification as defined by the FDA Performed on the [employer] [address] [facility] Hospital Lab [facility] SERVICES Specimen Swab - Entire nasopharynx (body structur e) Performing Organization Address City/[facility] Phon e Number [facility] [address] [place] [address] SERVICES documented in this encounter Visit Diagnoses Not on filedocumented in this encounter Additional Health Concerns Infection Onset Date Last Indicated Resolved Time MRSAComment: Hx of JNZH-Cudc-60/23/2020 08/29/2021 08/29/20 21 C. [place]oner 12/31/21 documented as of this encounter Care Teams Client Experience Manager Relationship Specialty Start Date End Date Marcy Alvarenga, PCP - General Family Medicine - Primary 1 11/13/18 ACTING INSTRUCTOR Care [address] [place] [phone] documented as of this encounter
--- OUTSIDE RECORDS SUMMARY | 2022-03-10 21:42 | XMS_ITS | Encounter Summary ---
:1965 Author Organization [facility] Address [address] [place] [id number] Care Team Providers Name Role Phone None, Provider Primary Care Provider Unavailable Reason for Visit Reason Comments Penile Discharge 3-4 day hx penile discharge. Denies notifiication of specific STD. ? fever Encounter Details Date Type Department Care Team Description 06/23/2019 Hospital Encounter [facility] Hay Hebert MD [address] [place] [id number] Concern about STD in male without diagno sis (Primary Dx); Urgent Care - January Beth, Provider, Dysuria [address] [id number] Social History Tobacco Use Types Packs/Day Years [...] Sign Reading Time Taken Comments Blood Pressure 109/63 06/23/2019 1447 EDT Pulse 110 06/23/2019 1447 EDT Temperature 36.9 ??C (98.4 ??F) 06/23/2019 1447 EDT Respiratory Rate 16 06/23/2019 1447 EDT Oxygen Saturation - - Inhaled Oxygen Concentration - - Weight - - Height - - Body Mass Index - - documented in this encounter Discharge Instructions InstructionsBaCrys alcocer MD - 06/23/2019 You were tested for chlamydia, gonorrhea, hepatitis B, hepatitis C, syphilis. You were treated with ceftriaxone and Zithromax for both chlamydia and gonorrhea. He will be notified of any positives by phone and negatives by letter. It is very important to use safe sex practices to try to prevent getting this again. If you are positive your partner needs to be notified and treated. AttachmentsThe following attachments cannot be sent through Care Everywhere.STI (Thai)documented in this encounter Medications at Time of Discharge Medication Sig Dispensed Refills Start Date End Date fiahjwv-jky-amhxi-tenof Take by mouth 0 09/27/2019 ALAFEN (GENVOYA) daily. [phone] mg tabletIndications: HIV infection lisinopril (PRINIVIL) 10 Take 10 mg by mouth 0 04/18/2020 mg tabletIndications: daily. hypertension tamsulosin (FLOMAX) 0.4 mg Take 0.4 mg by 0 02/15/2020 capsule mouth daily. documented as of this encounter Discharge Disposition Disposition Code Departure Means Destination Home or Self Care Car documented in this encounter ED Notes Graeme Najera MA - 06/23/2019 7338 EDT Blood drawn via butterfly needle per protocol, tiger tube(s) sent to lab per order. Crys Hebert MD - 06/23/2019 5832 EDT DOS: 06/23/2019 Chief Complaint Patient presents with ??? Penile Discharge 3-4 day hx penile discharge. Denies notifiication of specific STD. ? fever The patient is a 53 y.o. male who presents today with Penile Discharge (3-4 day hx penile discharge.Denies notifiication of specific STD. ? fever) The history is provided by the patient. Penile Discharge Presenting symptoms: dysuria and penile discharge Context: spontaneously Relieved by: Nothing Worsened by: Nothing Ineffective treatments: None tried Associated symptoms: fever (subjective) and urinary frequency Associated symptoms: no abdominal pain Associated symptoms comment: Sore throat Risk factors: HIV (on meds, reports neg viral load, normal cd4), new sexual partner, recent sexual activity and unprotected sex Review of Systems Constitutional: Positive for fever (subjective). Negative for fatigue. HENT: Positive for ear pain and sore throat. Negative for congestion and rhinorrhea. Eyes: Negative for discharge. Respiratory: Negative for shortness of breath. Cardiovascular: Negative for chest pain. Gastrointestinal: Negative for abdominal pain. Genitourinary: Positive for discharge, dysuria and frequency. Skin: Negative for color change. Current Facility-Administered Medications Medication Dose Route Frequency Provider Last Rate Last Dose ??? azithromycin (ZITHROMAX) tablet 1,000 mg 1,000 mg oral Now Crys Hebert MD ??? cefTRIAXone (ROCEPHIN) IM injection 250 mg 250 mg intramuscular Now Crys Hebert MD Current Outpatient Medications Medication Sig Dispense Refill ??? klqqopg-txx-qigpx-tenof ALAFEN (GENVOYA) [phone] mg tablet Take by mouth daily. ??? lisinopril (PRINIVIL) 10 mg tablet Take 10 mg by mouth daily. ??? tamsulosin (FLOMAX) 0.4 mg capsule Take 0.4 mg by mouth daily. No Known Allergies There are no active problems to display for this patient. Past Medical History: Diagnosis Date ??? BPH (benign prostatic hyperplasia) ??? HIV (human immunodeficiency virus infection) ([facility]) ??? Hypertension Social History Tobacco Use ??? Smoking status: Never Smoker ??? Smokeless tobacco: Never Used Substance Use Topics ??? Alcohol use: Yes Alcohol/week: 2.0 standard drinks Types: 2 Glasses of wine per week ??? Drug use: Not Currently History reviewed. No pertinent family history. BP 109/63 Pulse (!) 110 Temp 98.4 ??F (36.9 ??C) (Temporal) Resp 16 Physical Exam Constitutional: He is oriented to person, place, and time. He appears well- developed and well-nourished. No distress. HENT: Head: Normocephalic and atraumatic. Right Ear: External ear normal. Left Ear: External ear normal. Mild redness in throat Eyes: Conjunctivae are normal. Neck: Neck supple. Cardiovascular: Normal rate and regular rhythm. Pulmonary/Chest: Effort normal and breath sounds normal. Abdominal: Soft. He exhibits no distension. Lymphadenopathy: He has no cervical adenopathy. Neurological: He is alert and oriented to person, place, and time. Skin: Skin is warm. He is not diaphoretic. Psychiatric: He has a normal mood and affect. Nursing note and vitals reviewed. Consult orders: None PCP: Doctor Unknown Results for orders placed or performed during the hospital encounter of 06/23/19 POCT URINE DIPSTICK, CLINITEK Result Value Ref Range Color LOGAN Yellow Clarity, UA Clear Clear Glucose Neg Neg Bilirubin Neg Neg Ketones Neg Neg Specific [place] 1.025 1.001 - 1.035 Blood Neg Neg pH 6.0 4.6 - 8.0 Protein 1+ (A) Neg Urobilinogen 0.2 0.2 - 1.0 mg/dL Nitrite Neg Neg Leuk Esterase Trace (A) Neg Tech ID [id number] Radiology orders: None Imaging Results None No orders to display Procedures URGENT CARE COURSE A medical screening exam was performed. He likely has an STI. He was tested and treated for GC and Chlamydia with ceftriaxone 250 mg IM and Zithromax 1000 mg p.o. Blood work obtained for syphilis, hepatitis C, hepatitis B. He already has HIV. He will need to notify his partner if positive. He will geta phone call if positive and a letter if negative. Recommended condom use for sexual activity. ASSESSMENT AND PLAN Final diagnoses: Concern about STD in male without diagnosis Dysuria No supervision required. DISPOSITION: Discharged The patient's pain was managed to an adequate level weighing risk vs. benefit of further medications. Upon departure from [facility], the patient's pain was 6 on a zero to ten scale. Any further pain treatment will be at the discretion of the provider following up with the patient based on their clinical assessment . Condition at departure from the [facility] : Good MDM 06/23/2019 16:28 . Shabbir Thomas, RN - 06/23/2019 1509 EDT See cc note. Pt also c/o burning upon urination and tip of penis now has a constant burn. Pt has hadunprotected sex 2 week ago with a male partner. Pt also c/o sore throat and bilateral earache. Humaira Melgar, LAUREN - 06/23/2019 1450 EDT Just voided 20 minutes ago. Pt given instructions and containers for clean and dirty urine which canbe obtained at 3:30 pm today. Pt verbalized understanding. documented in this encounter Plan of Treatment Upcoming Encounters Date Type Specialty Care Team Description 04/14/2022 Office Visit Infectious Disease Lilian Rushing MD [address] [place] [address], [address] [place] [address] (Wo rk) documented as of this encounter Procedures Procedure Name Priority Date/Time Associated Comments Diagnosis ED/URGENT CARE ADD-ON STAT 06/23/2019 16:25 Concern about S TD Results for this EDT in male without procedure ar e in diagnosis the results Dysuria section. SYPHILIS SEROLOGY Routine 06/23/2019 16:25 Concern about STD R esults for this EDT in male without procedure ar e in diagnosis the results section. CHLAMYDIA/N. Routine 06/23/2019 16:25 Concern about STD Result s for this GONORRHOEAE AMPLIFIED EDT in male without pro cedure are in RNA, URINE diagnosis the results section. HEPATITIS C AB W Routine 06/23/2019 16:25 Concern about STD Re sults for this REFLEX TO HCV RNA BY EDT in male without proc edure are in PCR diagnosis the results section. HEPATITIS B SURFACE Routine 06/23/2019 16:25 Concern about STD Results for this ANTIGEN EDT in male without procedure ar e in diagnosis the results section. URINE SEDIMENT STAT 06/23/2019 16:20 Concern about STD Resu lts for this (MICRO) WITHOUT EDT in male without procedure are in REFLEX TO CULTURE diagnosis the result s section. BACTERIAL CULTURE, Routine 06/23/2019 16:20 Resul ts for this URINE EDT procedure are i n the results section. POCT URINE DIPSTICK, STAT 06/23/2019 16:[address] D Results for this CLINITEK EDT in male without procedure ar e in diagnosis the results section. documented in this encounter Results ED/URGENT CARE ADD-ON (06/23/2019 16:25 EDT) Tests to be added URINE CULTURE [facility] [place] [id number] (URGENT [facility] problems CARE)Comment: LABORATORY SERVICES Performed at [facility], [place], [place] Specimen Other Performing Organization Address City/[facility]/ZIP Code Phon e Number [facility] LABOR[facility]ORY [address] [place] [address] SERVICES (ABNORMAL) CHLAMYDIA/N. GONORRHOEAE AMPLIFIED RNA, URINE (06/23/2019 16:25 EDT) Pathologist Sig nature Chlamydia Result Negative [facility] SERVICES GC Result Positive (AA) [facility] LABORAT[facility] SERVICES Specimen Other (qualifier value) - Urine Performing Organization Address City/[facility]/ZIP Code Phon e Number [facility] [address] [place] [address] SERVICES HEPATITIS C AB W REFLEX TO HCV RNA BY PCR (06/23/2019 16:25 EDT) Pathologist Sig nature Hep C Ab w Rfx PCR Negative Negative [facility] [id number] LABORATORY SERVICES Specimen Blood specimen (specimen) - Blood Performing Organization Address City/[facility]/ZIP Code Phon e Number [facility] [address] [place] [address] SERVICES HEPATITIS B SURFACE ANTIGEN (06/23/2019 16:25 EDT) Pathologist Sig nature Hepatitis B Surface Negative Negative [facility] Antigen LABORATORY SERVICES Specimen Blood specimen (specimen) - Blood Performing Organization Address City/[facility]/ZIP [facility] Phon e Number [facility] [address] [place] [address] SERVICES SYPHILIS SEROLOGY (06/23/2019 16:25 EDT) Syphilis Serology NegativeComment: [facility] Reference Range: LABORATORY SERVICES Negative Specimen Blood specimen (specimen) - Blood Performing Organization Address City/[facility]/ZIP Code Phon e Number [facility] [address] [place] [address] SERVICES BACTERIAL CULTURE, URINE (06/23/2019 16:20 EDT) Pathologist Sig nature Result No growth [facility] LABORATOR Y SERVICES Specimen Urine Performing Organization Address [facility]/ZIP Code Phon e Number [facility] [address] [place] [address] SERVICES (ABNORMAL) URINALYSIS MICROSCOPIC ONLY (06/23/2019 16:20 EDT) WBC, UA 4 to 10 (A) 0 to 3 /HPF [facility] LABORATORY SERVICES RBC, UA 0 to 2 0 to 2 /HPF [facility] LABORATORY SERVICES Squam Epithel, UA None seen None seen [facility] /[facility] LABORATORY SERVICES Hyaline Casts, UA < or = 10 < or = 10 [facility] LABORATORY SERVICES Bacteria, UA None seen None seen [facility] /[facility] LABORATORY SERVICES UA Comment Sediment results [facility] Comment: LABORATORY are unreliable on SERVICES urines unrefrig >2hrs or refrig >8hrs. Performed at [facility], [place], [place] Specimen Urine (substance) - Urine Performing Organization Address [facility]/ZIP [facility] Phon e Number [facility] [address] [place] [address] SERVICES (ABNORMAL) POCT URINE DIPSTICK, CLINITEK (06/23/2019 16:18 EDT) Color LOGAN Yellow [facility] LABORATORY SERVICES Clarity, UA Clear Clear [facility] LABORAT[facility] SERVICES Glucose Neg [facility] LABORATORY SERVICES Bilirubin Neg [facility] LABORATORY SERVICES Ketones Neg [facility] LABORATORY SERVICES Specific [place] 1.025 1.001 - 1.035 [facility] LABORATORY SERVICES Blood Neg Neg [facility] LABORATORY SERVICES pH 6.0 4.6 - 8.0 [facility] LABORATORY SERVICES Protein 1+ (A) [facility] LABORATORY SERVICES Urobilinogen 0.2 0.2 - 1.0 [facility] mg/dL LABORATORY SERVICES Nitrite Neg Neg [facility] LABORATORY SERVICES Leuk Esterase Trace (A) [facility] LABORATORY collection systems foreman ID [id number]: [facility] Test performed at LABORATORY Urgent Care SERVICES Specimen Urine (substance) - Urine Performing Organization Address City/State/ZIP Code Phon e Number [facility] [address] [place] [address] SERVICES documented in this encounter Visit Diagnoses Diagnosis Concern about STD in male without diagno sis - Primary Person with feared complaint in whom no diagnosis was made Dysuria documented in this encounter Administered Medications Inactive Administered Medications - up to 3 most recent administrations Medication Order MAR Action Action Date Dose Rate Site azithromycin (ZITHROMAX) tablet Given 06/23/2019 16:40 EDT 1,000 mg 1,000 mg 1,000 mg, oral, NOW X1, 1 dose, On Pamela 06/23/19 at 1630, Routine cefTRIAXone (ROCEPHIN) IM injection 250 mg Given 06/23/2019 16:40 EDT 250 mg 250 mg, intramuscular, NOW X1, 1 dose, On Pamela 06/23/19 at 1630, Routine documented in this encounter Historical Medications This list may reflect changes made after this encounter. Medication Sig Dispensed Refills Start Date End Date lisinopril (PRINIVIL) 10 Take 10 mg by mouth 0 04/18/2020 mg tabletIndications: daily. hypertension tamsulosin (FLOMAX) 0.4 mg Take 0.4 mg by 0 02/15/2020 capsule mouth daily. wwxxdhp-qdk-lnbnx-tenof Take by mouth 0 09/27/2019 ALAFEN (GENVOYA) daily. [phone] mg tabletIndications: HIV infection added in this encounter Active and Recently Administered Medications Times are shown in EDT. Scheduled Medication Order 06/21/2019 06/22/2019 06/23/2019 azithromycin (ZITHROMAX) tablet 1,000 mg (COMPLETED) 1640 (Given - Provider: Michelle Gil RN) 1,000 mg, oral, NOW X1, 1 dose, Pamela 06/23/19 at 1630, Routine cefTRIAXone (ROCEPHIN) IM injection 250 mg (COMPLETED) 1640 (Given - Provider: Michelle Gil RN) 250 mg, intramuscular, NOW X1, 1 dose, Pamela 06/23/19 at 1630, Rout ine documented in this encounter Care Teams Supervisor Trust Accounts Relationship Specialty Start Date End Date None, Provider PCP - General 06/23/19 09/12/19 documented as of this encounter
--- OUTSIDE RECORDS SUMMARY | 2022-03-10 21:42 | XMS_ITS | Encounter Summary ---
:1965 Author Organization [facility] Address [address] [place] [address] Care Team Providers Name Role Phone None, Provider Primary Care Provider Unavailable None, Provider Primary Care Provider Unavailable Encounter Details Date Type Department Care Team Description 04/28/[address] [facility] - Lilian Rushing, Only [facility] - Main [facility] [address] [facility] [address] [place] [address] [address]OB-C, [place] [address] Social History Tobacco Use Types [...] Visit Infectious Disease Lilian Rushing MD [address] [facility] [place], [address] [place] [address] (Wo rk) documented as of this encounter Procedures Procedure Name Priority Date/Time Associated Comments Diagnosis COMPLETE BLOOD COUNT Routine 04/28/2019 13:45 Res ults for this WITH DIFFERENTIAL EDT procedure are in (AUTO) the results section. T CELL SUBSETS Routine 04/28/2019 13:43 Results f or this EDT procedure are i n the results section. BASIC METABOLIC PANEL Routine 04/28/2019 13:42 Re sults for this (BMP) EDT procedure are i n the results section. documented in this encounter Results (ABNORMAL) COMPLETE BLOOD COUNT WITH DIFFERENTIAL (AUTO) (04/28/2019 13:45 EDT) Pathologist Sig nature ABSOLUTE NEUTROPHIL 4.4 2.2 - 8.85 [facility] COUN - [facility] 10e3/uL [facility]ENTER [facility] BASO # - [facility] 0.02 0.01 - 0.11 [facility] 10e/uL [facility] BASO % - [facility] 0 0 - 2 % [facility] EOS # - [facility] 0.05 0.03 - 0.61 [facility] 10e3/ul [facility] EOS % - [facility] 1 0 - 5 % [facility] GRAN % - [facility] 62.2 40 - 80 % [facility] HEMATOCRIT - [facility] 39.9 39.5 - 50.2 % [facility] HEMOGLOBIN - [facility] 13.3 (L) 13.8 - 17.3 [facility] g/dl [facility] IG# - [facility] 0.02 0 - 0.7 10e3/uL [facility] IG% - [facility] 0.3 0 - 0.9 % [facility] LYMPH # - [facility] 1.8 1.09 - 3.3 [facility] 10e3/ul [facility] LYMPH% - [facility] 25.2 20 - 40 % [facility] MEAN CORPUSCULAR HGB 30.0 27.6 - 33.0 pg [facility] ME D - [facility] CENTER LAB MEAN CORPUSCULAR HGB 33.3 32.8 - 36.4 [facility] CONC - [facility] g/dL [facility]ENTER LAB MEAN CELL VOLUME - 89.9 81 - 95 fl [facility] MONO # - [facility] 0.8 0.1 - 0.8 [facility] 10e3/uL [facility] MONO% - [facility] 11.3 0 - 12 % [facility] PLATELET COUNT 330 141 - 377 [facility] 10e3/ul [facility] RED BLOOD COUNT - 4.44 4.36 - 5.78 [facility] 10e3/ul CENTER LAB RED CELL DISTRI WIDTH 13.2 <14.2 % [facility] CENTER LAB WHITE BLOOD COUNT - 7.1 4.0 - 10.4 [facility] 10e3/ul CENTER LAB Specimen Narrative [facility] - 019 13:58 EDT Does PT Have a Latex Allergy? NO Performing Organization Address [facility] Code Phon e Number [facility] [address] LAB (ABNORMAL) IMMUNODEFICIENCY PANEL (04/28/2019 13:43 EDT) % CD3 74 62 - 87 % [facility] % CD4 30 (A) 35 - 63 % [facility] % CD8 38 (A) 10 - 35 % [facility] Absolute CD4 531 329 - 1,427 [facility] Comment: cells/uL [facility] Among the CD3+ T-cells is a subset that expresses CD3 brightly, lacks expression of CD4, and expresses CD8 dimly or not at all. ??This immunophenotypic profile may be exhibited by T-cells expressing gamma-delta T-Cell receptors, or by NK-like T-cells. The presence of an increased percentage in either of t hese T-cell subsets is not specific with respect to etiology and is of uncertain clinical significance. ??In people with HIV infection , numbers of gamma-delta T-cells have been reported to be somewhat higher than those seen in seronegative individuals, and NK-like T -cells can vary during the course of therapy. Reviewed by Dr. Acosta Ctoa Test performed or referred by The [address] [address] Specimen Narrative [facility] - 019 19:31 EDT Does PT Have a Latex Allergy? NO Performing Organization Address City/State/ZIP Code Phon e Number [facility] [address] [place] [address] [facility] LAB (ABNORMAL) BASIC METABOLIC PANEL (BMP) (04/28/2019 13:42 EDT) BUN - [facility] 20 10 - 26 mg/dL [facility] CALCIUM - [facility] 9.4 8.5 - 10.5 [facility] mg/dL [facility] Chloride 103 96 - 110 [facility] mmol/L [facility] CO2 Total 28 21 - 32 mEq/L [facility] CREATININE 0.88 0.66 - 1.25 [facility] mg/dL [facility] eGFR >60 [facility] Comment: MED CENTER LAB Chronic renal impairment is defined as GFR <60 Multiply result by 1.210 for patients . Anion Gap 8 0 - 18 [facility] GLUCOSE - [facility] 117 (H) 70 - 100 mg/dL [facility] Potassium 4.5 3.5 - 5.0 [facility] mEq/L [facility] Sodium 139 136 - 145 [facility] mEq/L [facility] Specimen Narrative [facility] - 019 14:15 EDT Does PT Have a Latex Allergy? NO Performing Organization Address City/State/ZIP Code Phon e Number [facility] [address] [place] [address] [facility] documented in this encounter Visit Diagnoses Not on filedocumented in this encounter Care Teams Operating Room Surgical Technician Relationship Specialty Start Date End Date None, Provider PCP - General 04/22/19 06/22/19 None, Provider PCP - General 06/23/19 09/12/19 documented as of this encounter
--- OUTSIDE RECORDS SUMMARY | 2022-03-10 21:42 | XMS_ITS | Encounter Summary ---
:1965 Author Organization [facility] Address [address] [place] [address] Care Team Providers Name Role Phone None, Provider Primary Care Provider Unavailable None, Provider Primary Care Provider Unavailable Encounter Details Date Type Department Care Team Description 05/30/2019 Historical Results [facility] - Lilian Rushing, Only [facility] Lab - Main [facility] [address] [place] [address] [address] [place] [address] [address]OB-C, [place] [address] Social History Tobacco Use Types [...] Infectious Disease Lilian Rushing MD [address] [facility] [address], [address] [place] [address] (Wo rk) documented as of this encounter Procedures Procedure Name Priority Date/Time Associated Comments Diagnosis MEASLES IGG AB Routine 05/30/2019 13:09 Results f or this EDT procedure are i n the results section. RUBELLA IGG ANTIBODY Routine 05/30/2019 13:09 Res ults for this EDT procedure are i n the results section. VARICELLA IGG ANTIBODY Routine 05/30/2019 13:09 R esults for this EDT procedure are i n the results section. MUMPS ANTIBODY IGG Routine 05/30/2019 13:09 Resul ts for this EDT procedure are i n the results section. MISCELLANEOUS TEST, Routine 05/30/2019 13:01 Resu lts for this [place] EDT procedure are i n the results section. documented in this encounter Results RUBELLA IGG ANTIBODY (05/30/2019 13:09 EDT) RUBELLA IGG Positive [facility] - [facility] Comment: MED CENTER LAB Expected value: Positive The presence of Rubella IgG suggest immunity against r ubella Specimen Narrative [facility] - 14:32 EDT Does PT Have a Latex Allergy? NO Performing Organization Address [facility] Code Phon e [facility] [address] [place] [address] LAB VARICELLA IGG ANTIBODY (05/30/2019 13:09 EDT) Varicella IgG Ab PositiveComment: Negative [facility] Presumed immune to CENTER LAB Varicella infection. Specimen Narrative [facility] - 22:43 EDT Does PT Have a Latex Allergy? NO Performing Organization Address City/[facility]/ZIP Code Phon e [facility] [address] [place] [address] LAB MEASLES IGG AB (05/30/2019 13:09 EDT) Pathologist Sig nature RUBEOLA IGG ANTIBODY - Negative Negative [facility] D [facility] CENTER LAB Specimen Narrative [facility] - 22:43 EDT Does PT Have a Latex Allergy? NO Performing Organization Address City/State/ZIP Code Phon e [facility] [address] LAB MUMPS ANTIBODY IGG (05/30/2019 13:09 EDT) Pathologist Sig nature Mumps Ab, IgG, S PositiveComment: Negative [facility] Presumed immune to CENTER LAB Mumps infection. Specimen Narrative [facility] - 22:43 EDT Does PT Have a Latex Allergy? NO Performing Organization Address City/State/ZIP Code Phon e Number [facility] [address] [place] [address] [facility] MISCELLANEOUS TEST, [place] (05/30/2019 13:01 EDT) [facility] MISCELLANEOUS TEST - SEE BELOW () [facility] Comment: [facility] CENTER LAB Test ? Result ?F lag ??Unit ?? RefValue ------ Fungitell, Serum ? <31 ? pg/mL ??<80 ? Interpretation: The Fungitell assay does not detect ce rtain fungal species such as the genus Cryptococcus (Mony et al. 1991) which produces very low levels of (1-3)-Tsqb-G-Reefcg. The assay also does not detect th e Zygomycetes such as Absidia, Mucor and Rhizopus (Susan trinidad et al. 1994) which are not known to produce (1-3)-Exxj-D-Wzrxoj. In addition, the yeast phase of Blastomyces dermatitidis produces little (1-3)-Hhof-I-Mnwezc and may not be detected by the ass ay (Daysi et al. 2007). Reference Range: Less than 60 pg/mL. Glucan values of less than 60 pg/mL are interpr eted as negative. Glucan values of 60 to 79 pg/mL are interpreted as indeterminate, and suggest a possible f ungal infection. Additional sampling and testing of sera is required to interpret the results. Glucan values of gr eater than or equal to 80 pg/mL are interpreted as positive. Due to the potential for environmental contamination when transferred to pour-off tubes, which can lead to false positive results, interpret positive [facility] provided in pour-off tubes with caution. ??Results caren uld be used in conjunction with clinical findings, and should not form the sole basis for a diagnosis or treatment decis ion. The Fungitell test is approved or cleared for in vitro diagnostic use by the U.[place] Food and Drug Administration . Modifications to the approved package insert have been made and the performance characteristics for these modifica tions were determined by [employer]. If sample result is greater than 500 pg/mL, physician may order a titer of the sample. Please contact [employer] if you would l kristi to order a retest of this sample to obtain an actual v alue. Samples are held for 1 week after initial testing date . Test Performed by: [employer], Interface [address] [place] [address] Specimen Performing Organization Address City/State/ZIP Code Phon e Number [facility] [address] LAB documented in this encounter Visit Diagnoses Not on filedocumented in this encounter Care Teams Foundry Tender Relationship Specialty Start Date End Date None, Provider PCP - General 04/22/19 06/22/19 None, Provider PCP - General 06/23/19 09/12/19 documented as of this encounter
--- OUTSIDE RECORDS SUMMARY | 2022-03-10 21:42 | XMS_ITS | Encounter Summary ---
:1965 Author Organization [facility] Address [address] [place] [address] Care Team Providers Name Role Phone Marcy Alvarenga EPIC TRAINER Primary Care Provider [phone] Encounter Details Date Type Department Care Team Description 02/15/2020 Orders Only [facility] Geoff Alvarenga Family Medicine - Be nicol Ruiz EPIC TRAINER [address] [facility] [place] [address] [place] [address] [place] [address] (Wo rk) Social History [...] Sig Dispensed Refills Start Date End Date tamsulosin (FLOMAX) 0.4 mg Take 1 Cap by mouth 90 Cap 1 02/15/2020 04/18/2020 capsule daily. documented in this encounter Plan of Treatment Upcoming Encounters Date Type Specialty Care Team Description 04/14/2022 Office Visit Infectious Disease Lilian Rushing MD [address] [facility], [address] [place], [place] [phone] (Wo rk) documented as of this encounter Visit Diagnoses Not on filedocumented in this encounter Discontinued Medications Medication Sig Discontinue Reason Start Date End Date tamsulosin (FLOMAX) 0.4 Take 0.4 mg by Reorder mg capsule mouth daily. documented as of this encounter Care Teams Cell Installer Relationship Specialty Start Date End Date Marcy Alvarenga, PCP - General Family Medicine - Primary 1 11/13/18 EPIC TRAINER Care [address] [facility] [address] [place] [address] documented as of this encounter
--- OUTSIDE RECORDS SUMMARY | 2022-03-10 21:42 | XMS_ITS | Encounter Summary ---
:1965 Author Organization [facility] Address [address] [place] [address] Care Team Providers Name Role Phone Marcy Alvarenga WEIGHT CONTROL ENGINEER Primary Care Provider [phone] Reason for Visit Reason Comments Pain Consult (3 - 10 Business Days) - Specialty Report Received Specialty Diagnoses / Procedures Referred By Contact Refer red To Contact Orthopedic Surgery Diagnoses Arthritis of left knee Marcy Alvarenga [facility], WEIGHT CONTROL ENGINEER [address], [address] [place] [address] [address] [place] [address] [place] [address] Referral ID Status Reason Start Expiration Visits Visits Date Date Requested Authorized [id number] Specialty Specialty 05/01/2020 1 1 Report Services Received Required Encounter Details Date Type Department Care Team Description 06/01/2020 Office Visit [facility] - Socorro Bravo Ar thritis of left [facility] & PRINCE Diaz knee (Primary Dx) Sport Medicine [address] [place] [address] [address] [place] [address] [place] [address] (Wo rk) Social History Tobacco [...] Taken Comments Blood Pressure - - Pulse 86 06/01/2020 111 EDT Temperature 37.2 ??C (98.9 ??F) 06/01/2020 111 EDT Respiratory Rate - - Oxygen Saturation 98% 06/01/2020 111 EDT Inhaled Oxygen Concentration - - Weight 59.9 kg (132 lb) 06/01/2020 111 EDT Height 167.6 cm (5' 6) 06/01/2020 111 EDT Body Mass Index 21.31 06/01/2020 111 EDT documented in this encounter Progress Notes Socorro Bravo PA-C - 06/01/2020 1100 EDTAssociated Order(s): Large Joint Injection/Arthrocentesis: L kneePost-Procedure Diagnose(s): Arthritis of left knee Procedure: Large Joint Injection/Arthrocentesis: L knee on 06/01/2020 11:41 Indications: pain Details: 22 G needle, anterolateral approach Medications: 80 mg methylPREDNISolone ACETATE 80 mg/mL; 3 mL lidocaine (PF) 10 mg/mL (1 %) Outcome: tolerated well, no immediate complications Procedure, treatment alternatives, risks and benefits explained, specific risks discussed. Consent was given by the patient. Immediately prior to procedure a time out was called to verify the correct patient, procedure, equipment, support services rep and site/side marked as required. Patient was prepped anddraped in the usual sterile fashion. ahiana Brown LPN - 06/01/2020 1100 EDT CHIEF COMPLAINT: Left knee pain SUBJECTIVE: Ha Soria is a 54 y.o. male who presents today with left knee pain. 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 He is currently under the care of infectious disease here at [facility] for ongoing care of HIV. He states that he has significant knee pain, every once in a whileit will flare, and become swollen, difficult to walk on. 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 Taking care of his aging parents in [place]. He denies any prior history of injury to the left knee, but didhave a previous infection. Has known severe osteoarthritis in that knee. The past medical, family and social history have been reviewed in the patient chart. Past Medical History: Diagnosis Date ??? BPH (benign prostatic hyperplasia) ??? HIV (human immunodeficiency virus infection) ([facility]) ??? Hypertension Social History Tobacco Use ??? Smoking status: Never Smoker ??? Smokeless tobacco: Never Used Substance Use Topics ??? Alcohol use: Yes Alcohol/week: 2.0 standard drinks Types: 2 Glasses of wine per week Past Surgical History: Procedure Laterality Date ??? KNEE GANGLION SURGERY No Known Allergies Current Outpatient Medications on File Prior to Visit Medication Sig Dispense Refill ??? benzonatate (TESSALON) 100 mg capsule 1 cap(s) orally PRN ??? cetirizine (ZYRTEC) 10 mg tablet 1 tab(s) orally PRN ??? Clindamycin Phosphate 1 % swab 1 nael applied topically PRN ??? tyedmrq-bqg-fyjwu-tenof ALAFEN (GENVOYA) [phone] mg tablet Take 1 Tab by mouth daily for 90 days. 90 Tab 1 ??? lisinopriL (PRINIVIL) 10 mg tablet Take 1 Tab by mouth daily. 90 Tab 3 ??? tamsulosin (FLOMAX) 0.4 mg capsule Take 1 Cap by mouth daily. 90 Cap 3 No current facility-administered medications on file prior to visit. OBJECTIVE: Pulse 86 Temp 37.2 ??C (98.9 ??F) Ht 167.6 cm (66) Wt 59.9 kg (132 lb) SpO2 98% BMI 21.31 kg/m?? On physical exam, the patient is found to be a pleasant and cooperative male who appears to be alertand oriented x 3. He is well-developed, well-nourished and in no significant distress. Breathing is unlabored. Skin is warm, pink and dry to inspection and palpation. Neurovascularly intact with good capillary refill. Sensation to light touch throughout the lower extremity intact. Upon inspection, there are no areas of ecchymosis, joint deformity or atrophy. He has a mild amount of swelling/knee effusion. Range of motion the knee today is full, there is no deficit. He does have pain with full flexion today. Stable to varus and valgus stress testing with negative Lockman's and anterior drawer. Lockman's feels a little bit loose but he has an endpoint, and this is not reflected in the anterior drawer. He has a negative Dixie's. Full strength quadriceps, hamstrings hip flexion, extension, AB and adduction. No pain with hip rotation today. Prior radiographs of the knee were independently reviewed, there is moderate to severe osteoarthritis, tibiofemoral compartments. ASSESSMENT: Osteoarthritis, left knee PLAN: Patient interested in a steroid injection at this point. He has thought about it, and would like to proceed. I have discussed this with Dr. Rushing and she does think it is okay to proceed, although he has very minimally increased infection risk. I did discuss this with him and he would like to proceed. Follow-up on an as-needed basis. All questions were answered, he is pleased with plan. Dr. Valderrama was the attending physician available in the clinic today if needed. A consultation was not required. This note was prepared using voice recognition software and the EMR. There may be inadvertent errorsand omissions. SCOTT Montanez 06/01/2020 documented in this encounter Plan of Treatment Upcoming Encounters Date Type Specialty Care Team Description 04/14/2022 Office Visit Infectious Disease Lilian Rushing MD [address] [place] [address], [address] [place] [address] (Wo rk) documented as of this encounter Procedures Procedure Name Priority Date/Time Associated Diagnosis Comme nts LARGE JOINT Routine 06/01/2020 11:00 Arthritis of left Result s for this INJECTION/ARTHROCEN EDT knee procedur e are in TESIS the results section. documented in this encounter Results [place] ARTHROCENTESIS ASPIR&/INJ MAJOR JT/BURSA W/O US (06/01/2020 11:00 EDT) Narrative POINT OF CARE [facility] - 06/01/2020 11:00 E Socorro Pascual PA-C ? 06/01/2020 11:42 Large Joint Injection/Arthrocentesis: L knee on 06/01/2020 11:41 Indications: pain Details: 22 G needle, anterolateral appr oach Medications: 80 mg methylPREDNISolone AC ETATE 80 mg/mL; 3 mL lidocaine (PF) 10 mg/mL (1 %) Outcome: tolerated well, no immediate co mplications Procedure, treatment alternatives, risks and benefits explained, specific risks discussed. Consent was given by th e patient. Immediately prior to procedure a time out was called to verif y the correct patient, procedure, equipment, support services rep and site/side m arked as required. Patient was prepped and draped in the usual sterile fashion. Performing Organization Address City/State/ZIP Code Phon e Number [facility] POINT OF CARE POINT [facility] CARE [facility] documented in this encounter Visit Diagnoses Diagnosis Arthritis of left knee - Primary Unspecified arthropathy, lower leg documented in this encounter Administered Medications Inactive Administered Medications - up to 3 most recent administrations Medication Order MAR Action Action Date Dose Rate Site lidocaine (PF) 10 mg/mL (1 %) Given 06/01/2020 11:41 EDT 3 mL injection 3 mL 3 mL, other, Once PRN Procedure, 1 dose, Starting on Thu06/01/20 at 1141, Until Thu06/01/20 at 1141, Routine methylPREDNISolone ACETATE (DEPO-MEDROL) Given 06/01/2020 11:41 EDT 80 mg injection 80 mg 80 mg, intra-articular, Once PRN Procedure, 1 dose, Starting on Thu06/01/20 at 1141, Until Thu06/01/20 at 1141, Routine documented in this encounter Care Teams Web Site Project Manager Relationship Specialty Start Date End Date Gil-Marcy Santos, PCP - General Family Medicine - Primary 1 1/19/19 WEIGHT CONTROL ENGINEER Care [address] [place] [phone] documented as of this encounter
--- OUTSIDE RECORDS SUMMARY | 2022-03-10 21:42 | XMS_ITS | Encounter Summary ---
:1965 Author Organization [facility] Address [address] [place] [address] Care Team Providers Name Role Phone None, Provider Primary Care Provider Unavailable Encounter Details Date Type Department Care Team Description 09/01/[address] [facility] [place] - [facility] Lilian Rushing MD Lab - [facility] [address] [place] [address] [place] [address] (Wo rk) Social History Tobacco Use [...] Visit Infectious Disease Lilian Rushing MD 130 [facility] [address], [address] [place] [address] (Wo rk) documented as of this encounter Procedures Procedure Name Priority Date/Time Associated Comments Diagnosis COMPLETE BLOOD COUNT Routine 09/01/2019 11:45 Res ults for this WITH DIFFERENTIAL EST procedure are in (AUTO) the results section. RAPID PLASMA REAGIN Routine 09/01/2019 11:45 Resu lts for this (RPR) WITH REFLEX, S EST procedu re are in the results section. T CELL SUBSETS Routine 09/01/2019 11:45 Results f or this EST procedure are i n the results section. HIV 1 RNA QUANTITATION Routine 09/01/2019 11:45 R esults for this EST procedure are i n the results section. URINE CHEMICAL (DIP) & Routine 09/01/2019 11:45 R esults for this SEDIMENT (MICRO) EST procedure a re in WITHOUT REFLEX TO the result s CULTURE section. COMPREHENSIVE Routine 09/01/2019 11:45 Results fo r this METABOLIC PANEL (CMP) EST proced ure are in the results section. documented in this encounter Results RAPID PLASMA REAGIN (RPR) WITH REFLEX, S (09/01/2019 11:45 EST) Pathologist Sig nature APID PLASMA REAGIN - Nonreactive NEG [facility] Specimen Performing Organization Address City/[facility]/ZIP [facility] Phon e Number [facility] [address] LAB (ABNORMAL) IMMUNODEFICIENCY PANEL (09/01/2019 11:45 EST) Pathologist [facility] % CD3 60 (A) 62 - 87 % [facility] % CD4 27 (A) 35 - 63 % [facility] % CD8 29 10 - 35 % [facility] Absolute CD4 403 329 - 1,427 [facility] Comment: cells/uL [facility] Reviewed by Dr. Miracle Dominguez Test performed [place] [address] Specimen Performing Organization Address City/State/ZIP [facility] Phon e Number [facility] [address] LAB HIV 1 RNA QUANTITATION (09/01/2019 11:45 EST) Pathologist [facility] HIV-1 RNA QUANT - Undetected Undetected [facility] Comment: [facility] INFCE Result Units: copies/mL Result in log copies/mL is Undetected. ADDITIONAL INFORMATION ------ The quantification range of this assay is 20 to 10,000 ,000 copies/mL (1.30 log to 7.00 log copies/mL). Testing wa s performed using the rafael HIV-1 test ([employer] with the rafael 6800 System. This test has been modified from the naturopathic oncology provider's instructions. Its performance characteristics were determined by [facility] in a manner consistent with CLIA requirements. This test has not been cleared or approv ed by the U.S. Food and Drug Administration. Test Performed by: [facility] [place] [address] Automation Qa Tester: Pritesh Mcgee M.D. Ph.D.; CLIA# [id number] Specimen Performing Organization Address [facility] Phon e Number [facility] [address] [place] [address] LAB UA, CHEMICAL AND SEDIMENT ANALYSIS (DIPSTICK AND MICROSCOPIC) (09/01/2019 11:45 EST) Pathologist Sig nature URINE APPEARANCE - Clear CLEAR [facility] URINE BILIRUBIN - Negative NEGATIVE [facility] DIPSTICK [facility] URINE BLOOD - [facility] Negative NEG [facility] URINE COLOR - [facility] Yellow YELLOW [facility] URINE GLUCOSE - Negative NEGATIVE [facility] DIPSTICK [facility] URINE KETONE - [facility] Negative NEGATIVE [facility] URINE LEUK ESTERASE - Negative NEG [facility] URINE NITRITE - Negative [facility]G [facility] URINE PH - [facility] 6.0 4.0 - 8.0 [facility] URINE PROTEIN - Negative NEG [facility] DIPSTICK [facility] URINE SPECIFIC GRAVITY 1.015 1.001 - 1.035 [facility] ED [facility] LAB URINE UROBILINOGEN - 0.2 0.2 - 1.0 [facility] Specimen Performing Organization Address City/[facility] Phon e Number [facility] [address] LAB COMPREHENSIVE METABOLIC PANEL (CMP) (09/01/2019 11:45 EST) ALBUMIN - [facility] 3.7 3.4 - 4.9 [facility] g/dL [facility] ALKALINE 60 38 - 126 U/L [facility] PHOSPHATASE - [facility] BILIRUBIN TOTAL 0.3 0.2 - 1.3 [facility] mg/dL [facility] BUN - [facility] 20 10 - 26 mg/dL [facility] CALCIUM - [facility] 9.6 8.5 - 10.5 [facility] mg/dL [facility] Chloride 99 96 - 110 [facility] mmol/L [facility] CO2 Total 31 21 - 32 mEq/L [facility] CREATININE 0.88 0.66 - 1.25 [facility] mg/dL [facility] eGFR >60 [facility] Comment: [facility] Chronic renal impairment is defined as GFR <60 Multiply result by 1.210 for patients . Anion Gap 6 0 - 18 [facility] GLUCOSE - [facility] 85 70 - 100 [facility] mg/dL [facility] Potassium 4.4 3.5 - 5.0 [facility] mEq/L [facility] Sodium 136 136 - 145 [facility] mEq/L [facility] TOTAL PROTEIN - 6.9 6.2 - 8.2 [facility] gm/dL [facility] SGOT/AST - [facility] 17 17 - 59 U/L [facility] SGPT/ALT - [facility] 21 21 - 72 U/L [facility] Specimen Performing Organization Address City/State/ZIP Code Phon e Number [facility] [address] LAB (ABNORMAL) COMPLETE BLOOD COUNT WITH DIFFERENTIAL (AUTO) (09/01/2019 11:45 EST) Pathologist Sig nature ABSOLUTE NEUTROPHIL 4.6 2.2 - 8.85 [facility] COUN - [facility] 10e3/uL [facility] BASO # - [facility] 0.01 0.01 - 0.11 [facility] 10e/uL [facility] BASO % - [facility] 0 0 - 2 % [facility] EOS # - [facility] 0.06 0.03 - 0.61 [facility] 10e3/ul [facility] EOS % - [facility] 1 0 - 5 % [facility] GRAN % - [facility] 68.3 40 - 80 % [facility] HEMATOCRIT - [facility] 40.0 39.5 - 50.2 % [facility] HEMOGLOBIN - [facility] 13.3 (L) 13.8 - 17.3 [facility] g/dl [place] [facility] IG# - [facility] 0.03 0 - 0.7 10e3/uL [facility] IG% - [facility] 0.4 0 - 0.9 % [facility] LYMPH # - [facility] 1.5 1.09 - 3.3 [facility] 10e3/ul [place] [facility] LYMPH% - [facility] 22.0 20 - 40 % [facility] MEAN CORPUSCULAR HGB 29.6 27.6 - 33.0 pg [facility] ME D - [facility] LAB MEAN CORPUSCULAR HGB 33.3 32.8 - 36.4 [facility] CONC - [facility] g/dL [facility] LAB MEAN CELL VOLUME - 88.9 81 - [address] [facility] MONO # - [facility] 0.6 0.1 - 0.8 [facility] 10e3/uL [place] [facility] MONO% - [facility] 8.3 0 - 12 % [facility] PLATELET COUNT 290 141 - 377 [facility] 10e3/ul [place] [facility] RED BLOOD COUNT - 4.50 4.36 - 5.78 [facility] 10e3/ul [place] [facility] RED CELL DISTRI WIDTH 14.2 <14.2 % [facility] WHITE BLOOD COUNT - 6.7 4.0 - 10.4 [facility] 10e3/ul [place] [facility] Specimen Performing Organization Address City/State/ZIP Code Phon e Number [facility] [address] [place], [place] [id number] [place] [address] LAB documented in this encounter Visit Diagnoses Not on filedocumented in this encounter Care Teams Experimental Rocket Sled Mechanic Relationship Specialty Start Date End Date None, Provider PCP - General 06/23/19 09/12/19 documented as of this encounter
--- OUTSIDE RECORDS SUMMARY | 2022-03-10 21:42 | XMS_ITS | Encounter Summary ---
:1965 Author Organization [facility] Address [address] [place] [address] Care Team Providers Name Role Phone None, Provider Primary Care Provider Unavailable None, Provider Primary Care Provider Unavailable Encounter Details Date Type Department Care Team Description 04/28/[address] [facility] - Lilian Rushing, Only [facility] Lab - Main [facility] 130 [facility] [address] [place] [address] [address], [place] [address] Social History Tobacco Use Types [...] Visit Infectious Disease Lilian Rushing MD 130 [facility] [address] [place] [address] (Wo rk) documented as of this encounter Procedures Procedure Name Priority Date/Time Associated Comments Diagnosis HIV 1 RNA Routine 04/28/2019 13:43 Results for this QUANTITATION EDT procedure are i n the results section. documented in this encounter Results HIV 1 RNA QUANTITATION (04/28/2019 13:43 EDT) HIV-1 RNA QUANT - Undetected Undetected [facility] Comment: [facility] INFCE Result Units: copies/mL Result in log copies/mL is Undetected. ADDITIONAL INFORMATION ------ The quantification range of this assay is 20 to 10,000 ,000 copies/mL (1.30 log to 7.00 log copies/mL). Testing wa s performed using the rafael HIV-1 test ([employer] with the rafael Lab210 System. This test has been modified from the team cdl driver's instructions. Its performance characteristics were determined by [facility] in a manner consistent with CLIA requirements. This test has not been cleared or approv ed by the U.S. Food and Drug Administration. Test Performed by: [facility] - [address] [address] Specimen Narrative [facility] - 019 19:31 EDT Does PT Have a Latex Allergy? NO Performing Organization Address City/State/ZIP Code Phon e Number [facility] [address] LAB documented in this encounter Visit Diagnoses Not on filedocumented in this encounter Care Teams State Inspector Relationship Specialty Start Date End Date None, Provider PCP - General 04/22/19 06/22/19 None, Provider PCP - General 06/23/19 09/12/19 documented as of this encounter
--- OUTSIDE RECORDS SUMMARY | 2022-03-10 21:42 | XMS_ITS | Encounter Summary ---
:1965 Author Organization [facility] Address [address] [place] [address] Care Team Providers Name Role Phone Marcy Alvarenga SALES SERVICE COORDINATOR Primary Care Provider [phone] Reason for Visit Reason Comments Other ASYMPTOMATIC HIV/AIDS Encounter Details Date Type Department Care Team Description 03/07/2020 Nurse Only [facility] Mobile Scre ening for viral [facility] Testing disea se (Primary Dx) - [facility] - Mobile Testing Department [address] [place] [address] Social History Tobacco Use Types [...] / COVID-19? documented as of this encounter Progress Notes Shefali Dominguez - 03/07/2020 1355 EDT Reason for visit ??? Covid 19 Screening HPI and Provider order- It is confirmed that patient qualifies for testing, C-19 testing has been recommended and ordered by provider Education ??? Patient offered Covid counseling and was provided with Covid home instructions. Vital Signs obtained and put in chart. Brief Assessment- Patient in no acute distress and tolerated testing well. Nurse performing swab/service today ??? Kevin Juan APRN Provider on site today - Kevin Juan APRN Diagnosis / code ??? Screening for other viral disease, Z11.59 Nurse Encounter charge [id number] ampKevin sadler APRN - 03/07/2020 3537 EDT Swab obtained patient tolerated well. documented in this encounter Plan of Treatment Upcoming Encounters Date Type Specialty Care Team Description 04/14/2022 Office Visit Infectious Disease Lilian Rushing MD [address] [place] [address], [address] [place] [address] (Wo rk) documented as of this encounter Procedures Procedure Name Priority Date/Time Associated Comments Diagnosis COVID-19 TESTING Routine 03/07/2020 14:37 Results for this EDT procedure are i n the results section. SHIGA TOXINS 1 & 2 - Routine 03/07/2020 13:30 Res ults for this [facility] EDT procedure are i n the results section. URINALYSIS/COMPLETE - Routine 03/07/2020 13:30 Re sults for this [facility] EDT procedure are i n the results section. COMPLETE BLOOD COUNT Routine 03/07/2020 13:30 Res ults for this WITH DIFFERENTIAL EDT procedure are in (AUTO) the results section. HIV 1 RNA Routine 03/07/2020 13:30 Results for this QUANTITATION EDT procedure are i n the results section. documented in this encounter Results COVID-19 TESTING (03/07/2020 14:37 EDT) Performing Lab AB [address] [facility] LAb [facility] Comment: [facility] LAB Is Patient Admitted or Awaiting Admission?:NO NOTE: RESULTS HAVE BEEN REFORMATTED PLEASE REVIEW RESULTS CAREFULLY THE LOCATION OF INFORMATION MAY HAVE CHANGED Test performed or referred by The [facility] [address] [facility], [place] [address] COVID-19 rt-PCR Not Detected Negative [facility] Result Comment: [facility] LAB Negative results do not preclude 2019-nCoV infection a nd should not be used as the sole basis for treatment or other patient management decisions. Negative results must be combined with clinical observations, patient history, and epidemiological information. This test was developed and its performance characteri stics determined by [facility]. It has not been cleared or approv ed by the US Food and Drug Administration. FDA does not requ taya this test to go through premarket FDA review. This peg t is used for clinical purposes. It should not be regarded as investigational or for research. This laboratory is certified under the Clinical Laboratory Improvement Amendments (CLIA) as qualified to perform high complex ity clinical laboratory testing. This test is based on the CDC COVID-19 Emergency Use Authorization (EUA) assay, with minor modification as defined by the FDA Performed on the [employer] Fast. Specimen Performing Organization Address City/[facility]/ZIP Code Phon e Number [facility] [address] [place] [id number] [place] [address] LAB SHIGA TOXINS 1 & 2 - [facility] (03/07/2020 13:30 EDT) Pathologist [facility] E.COLI SHINGA E.COLI SHIGA TOXIN 1 [facility] TOXIN 1 [facility] NOT DETECTED [facility] LAB E.COLI SHIGA TOXIN E.COLI SHIGA TOXIN 2 [facility] T 2 [facility] NOT DETECTED [facility] NO E.COLI [id number] [facility] NO SALMONELLA OR [facility] SHIGELLA ISOLATED [facility] LAB [facility] NO CAMPYLOBACTER SP. [facility] ISOLATED [facility] LAB Specimen Stool specimen (specimen) Performing Organization Address City/[facility]/ZIP [facility] Phon e Number [facility] [address] [place], [place] [id number] [place] [address] LAB (ABNORMAL) HIV 1 RNA QUANTITATION (03/07/2020 13:30 EDT) HIV-1 RNA QUANT - <20 (A) Undetected [facility] Comment: [facility] INFCE Result Units: copies/mL [...] performed using the rafael HIV-1 test ([employer] with the rafael OnePIN0 System. This test has been modified from the physical integration practitioner's instructions. Its performance characteristics were determined by [facility] in a manner consistent with CLIA requirements. This test has not been cleared or approv ed by the U.S. Food and Drug Administration. Test Performed by: [facility] [place] [address] Graduate Nurse: Pritesh Mcgee M.D. Ph.D.; CLIA# [id number] Specimen Performing Organization Address City/State/[facility] Code Phon e Number [facility] [address] [place], [place] [id number] [place] [address] LAB URINALYSIS/COMPLETE - [facility] (03/07/2020 13:30 EDT) URINE APPEARANCE - Clear CLEAR [facility] LAB URINE BACTERIA - NEG [facility] LAB URINE BILIRUBIN - 1+ NEGATIVE [facility] DIPSTICK [facility] Comment: [facility] Unable to confirm positive urine bilirubin. If clinica l correlation is inconsistent, consider serum bilirubin. URINE BLOOD - [facility] Negative NEG [facility] URINE COLOR - [facility] Yellow YELLOW [facility] URINE GLUCOSE - Negative NEGATIVE [facility] DIPSTICK [facility] URINE KETONE - [facility] Negative NEGATIVE [facility] URINE LEUK ESTERASE Negative NEG [facility] URINE MUCUS - [facility] FEW [facility] URINE NITRITE - Negative NEG [facility] DIPSTICK [facility] URINE PH - [facility] 6.5 4.0 - 8.0 [facility] URINE PROTEIN - Negative NEG [facility] DIPSTICK [facility] URINE RBC - [facility] 1-3 rbc/hpf [facility] URINE SPECIFIC 1.020 1.001 - 1.035 [facility] GRAVITY - [facility] LAB URINE SQUAMOUS RARE NEG #/hpf [facility] CELLS - [facility] LAB URINE UROBILINOGEN 0.2 0.2 - 1.0 [facility] - DIPSTICK - [facility] LAB URINE WBC - [facility] RARE NEG wbc/hpf [facility] Specimen Performing Organization Address City/State/ZIP Code Phon e Number [facility] [address] [place] [address] [facility] LAB (ABNORMAL) COMPLETE BLOOD COUNT WITH DIFFERENTIAL (AUTO) (03/07/2020 13:30 EDT) Pathologist Sig nature Gran # 5.5 2.2 - 8.85 [facility] 10e3/uL [place] [facility] BASO # - [facility] 0.03 0.01 - 0.11 [facility] 10e/uL [place] [facility] BASO % - [facility] 0 0 - 2 % [facility] EOS # - [facility] 0.07 0.03 - 0.61 [facility] 10e3/ul [place] [facility] EOS % - [facility] 1 0 - 5 % [facility] GRAN % - [facility] 61.0 40 - 80 % [facility] HEMATOCRIT - [facility] 39.2 (L) 39.5 - 50.2 % [facility] HEMOGLOBIN - [facility] 13.4 (L) 13.8 - 17.3 [facility] g/dl [place] [facility] IG# - [facility] 0.08 0 - 0.7 10e3/uL [facility] IG% - [facility] 0.9 0 - 0.9 % [facility] LYMPH # - [facility] 2.2 1.09 - 3.3 [facility] 10e3/ul [place] [facility] LYMPH% - [facility] 24.5 20 - 40 % [facility] MEAN CORPUSCULAR HGB 30.1 27.6 - 33.0 pg [facility] ME D - [facility] LAB MEAN CORPUSCULAR HGB 34.2 32.8 - 36.4 [facility] CONC [facility] g/dL [place] [facility] MEAN CELL VOLUME - 88.1 81 - 95 fl [facility] MONO # - [facility] 1.1 (H) 0.1 - 0.8 [place] [id number] MONO% - [facility] 12.5 (H) 0 - 12 % [facility] PLATELET COUNT 390 (H) 141 - [address] LAB RED BLOOD COUNT - 4.45 4.36 - 5.78 [facility] 10e3/[facility] LAB RED CELL DISTRI WIDTH 13.2 <14.2 % [facility] LAB WHITE BLOOD COUNT - 8.9 4.0 - 10.[address] LAB Specimen Performing Organization Address City/State/ZIP Code Phon e Number [facility] [address] [place] [address] [facility] documented in this encounter Visit Diagnoses Diagnosis Screening for viral disease - Primary Special screening examination for unspec ified viral disease documented in this encounter Care Teams Lining Stitcher Relationship Specialty Start Date End Date Marcy Alvarenga, PCP - General Family Medicine - Primary 1 11/13/18 SALES SERVICE COORDINATOR Care [address] [place] [phone] documented as of this encounter
--- OUTSIDE RECORDS SUMMARY | 2022-03-10 21:42 | XMS_ITS | Encounter Summary ---
:1965 Author Organization [facility] Address [address] [place] [address] Care Team Providers Name Role Phone None, Provider Primary Care Provider Unavailable Reason for Visit Reason Comments Independent Blood Draw Arrives with [facility] for evident iary blood draw. Pt states he was seen today for blood work an d is worried about how much blood has been taken today. C/o 7/ 10 penile pain that has been going on xdays. Calm and cooperati ve in triage Encounter Details Date Type Department Care Team Description 06/23/2019 Emergency [facility] Aissatou Morrison P A-Nikkie [address] [facility], [address] [place] [address] Examination, Emergency Department Emergency, MD Celia medicolegal ([facility]) [address] [place] [address] Social History Tobacco Use Types [...] Sign Reading Time Taken Comments Blood Pressure 103/87 06/23/20192232 EDT Pulse 105 06/23/20192232 EDT Temperature 36.8 ??C (98.2 ??F) 06/23/20192232 EDT Respiratory Rate 20 06/23/20192232 EDT Oxygen Saturation 99% 06/23/20192232 EDT Inhaled Oxygen Concentration - - Weight - - Height - - Body Mass Index - - documented in this encounter Discharge Diagnoses Diagnosis Z02.83 Encounter for blood-alcohol and b lood-drug test-Z02.83[ICD-10-CM] documented in this encounter Discharge Instructions InstructionsLaAissatou Diggs PA - 06/23/2019 You will be discharged in police custody to detox or to responsible friend to be with you Return for worsening symptoms documented in this encounter Medications at Time of Discharge Medication Sig Dispensed Refills Start Date End Date uwbcocq-kou-ecifq-tenof Take by mouth 0 09/27/2019 ALAFEN (GENVOYA) daily. [phone] mg tabletIndications: HIV infection lisinopril (PRINIVIL) 10 Take 10 mg by mouth 0 04/18/2020 mg tabletIndications: daily. hypertension tamsulosin (FLOMAX) 0.4 mg Take 0.4 mg by 0 02/15/2020 capsule mouth daily. documented as of this encounter Discharge Disposition Disposition Code Departure Means Destination Home or Self Care Police documented in this encounter ED Notes Kerline Wang RN - 06/23/2019 2321 EDT DC with police arow Aissatou Adame PA - 06/23/2019 2252 EDT DOS: 06/23/2019 Chief Complaint Patient presents with ??? Independent Blood Draw Arrives with [facility] for evidentiary blood draw. Pt states he was seen today for blood work and is worried about how much blood has been taken today. C/o 7/10 penile pain that has been going on xdays. Calm and cooperative in triage HPI I, Rama Natarlettess, am scribing for Aissatou Morrison PA while he/she is personally performing the service. Rama Cordero 06/23/2019 22:52 Ha Soria is a 53 y.o. male with a history of HTN and prostate issues who presents to the ED for an independent blood draw for state police after sort of being pulled over under the influence. He notes that he is currently on antibiotics for penile discharge and erythema. Per PD he will either go to corrections for detox or will go home with his friend.He denies nausea, vomiting, fever, chills, headache, or any other recent injuries. The history is provided by the patient and medical records. Review of Systems Review of Systems Constitutional: Negative for chills and fever. Respiratory: Negative for shortness of breath. Cardiovascular: Negative for chest pain. Gastrointestinal: Negative for abdominal pain, nausea and vomiting. Neurological: Negative for headaches. The patient's past medical, family and social history was reviewed and updated as needed. No Known Allergies Vital Signs Temp: 36.8 ??C (98.2 ??F) Pulse: 105 Resp: 20 SpO2: 99 % BP: 103/87 BP Device: BP Machine Patient Position: Sitting BP Cuff Location: Right arm O2 Device: None (Room air) Physical Exam Constitutional: He is oriented to person, place, and time. He appears well- developed and well-nourished. HENT: Head: Atraumatic. Neck: Normal range of motion. Cardiovascular: Normal rate, regular rhythm and normal heart sounds. Pulmonary/Chest: Effort normal and breath sounds normal. No respiratory distress. Neurological: He is alert and oriented to person, place, and time. Skin: Skin is warm and dry. Psychiatric: He has a normal mood and affect. Nursing note and vitals reviewed. RESULTS EKG orders: None Radiology orders: None Procedures ED COURSE A medical screening exam was performed. The patient is a 53 y.o. male, who presents with PD for a blood draw. On exam, Heart RRR. Lungs CTAB. Awake, alert. Patient was discharged to PD custody or to responsible friend with plans to follow up with PCP. Prior to discharge usual and customary precautions were reviewed with the patient and/or family includingfollow-up instructions and reasons to return to the Emergency Department if condition worsens, does not improve as expected, or other new concerns arise. Final diagnoses: Examination, medicolegal DISPOSITION: Discharged The patient's pain was managed to an adequate level weighing risk vs. benefit of further medications. Upon departure from the Emergency Department, the patient's pain was 0 on a zero to ten scale. Any further pain treatment will be at the discretion of the provider following up with the patient based on their clinical assessment. Condition at departure from the Emergency Department: Good PCP: Provider None MDM Number of Diagnoses or Management Options Examination, medicolegal: Diagnosis management comments: Medicolegal exam, medical clearance 3 Amount and/or Complexity of Data Reviewed Review and summarize past medical records: yes Adria Villalba 06/23/2019 22:56 No flowsheet data found. This documentation is recorded by Rama Cordero acting as Scribe under the direction and presence of Aissatou Morrison PA. Aissatou Morrison PA: I personally performed the services recorded by the scribe in my presence. I confirm the scribe's documentation has been reviewed by me to accurately and completely record my work, treatment, procedures, and medical decision making. Dr. Villalba was available for supervision. documented in this encounter Plan of Treatment Upcoming Encounters Date Type Specialty Care Team Description 04/14/2022 Office Visit Infectious Disease Lilian Rushing MD [address] [place] [address], [address] [place] [address] (Wo rk) documented as of this encounter Visit Diagnoses Diagnosis Examination, medicolegal - Primary Examination for medicolegal reason documented in this encounter Care Teams Wreath Maker Relationship Specialty Start Date End Date None, Provider PCP - General 06/23/19 09/12/19 documented as of this encounter
--- OUTSIDE RECORDS SUMMARY | 2022-03-10 21:42 | XMS_ITS | Encounter Summary ---
:1965 Author Organization [facility] Address [address] [place] [address] Care Team Providers Name Role Phone Marcy Alvarenga DONOR RELATIONS MANAGER Primary Care Provider [phone] Reason for Visit Reason Comments Pain Encounter Details Date Type Department Care Team Description 12/05/2019 Office Visit [facility] - Socorro Bravo thritis of left [facility] Orthopedics & PRINCE Diaz knee (Primary Dx) Sport Medicine [address], [facility] [address] [place] [address] [place], [place] [address] (Wo rk) Social History Tobacco Use Types [...] Taken Comments Blood Pressure - - Pulse 114 12/05/2019 1516 EST Temperature - - Respiratory Rate - - Oxygen Saturation 99% 12/05/2019 1516 EST Inhaled Oxygen Concentration - - Weight 59 kg (130 lb) 12/05/2019 1516 EST Height 167.6 cm (5' 6) 12/05/2019 1516 EST Body Mass Index 20.98 12/05/2019 1516 EST documented in this encounter Progress Notes Socorro Bravo PA-C - 12/05/2019 1500 EST Pt injured last Thursday removing snow from roof and felt like his knee twisted and heard a pop. Pain is on lateral side. Xray done Thursday11/27/19 . CHIEF COMPLAINT: Left knee pain SUBJECTIVE: Ha Soria is a 54 y.o. male who presents today with left knee pain. He twisted his knee removing snow from his roof, and heard a pop. 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 He was on suppressive antibiotics, and then stop suppression [place]. He states that he had a recurrence around 2012 and had to have a second surgery. Apparently the coccidiomycosis was in the Wayne's cyst. He is currently under the care of infectious disease here at [facility] for ongoing care of HIV. He has an appointment with Dr. Rushing later in the day today. He states that he has significant knee pain, every once in a while it will flare, and become swollen, difficult to walk on. 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 Taking care of his aging parents in [place]. He denies any prior history of injury to the left knee, but did have a previous infection. A 10-point review of systems has been reviewed from the new patient intake sheet and all are negative except noted in HPI. The past medical, family and social history have been reviewed in the patient chart. Past Medical History: Diagnosis Date ??? BPH (benign prostatic hyperplasia) ??? HIV (human immunodeficiency virus infection) ([facility]) ??? Hypertension Social History Tobacco Use [...] swab 1 nael applied topically PRN ??? kdukozd-bva-pxypy-tenof ALAFEN (GENVOYA) [phone] mg tablet Take 1 Tab by mouth daily for 90 days. 90 Tab 1 ??? lisinopril (PRINIVIL) 10 mg tablet Take 10 mg by mouth daily. ??? tamsulosin (FLOMAX) 0.4 mg capsule Take 0.4 mg by mouth daily. No current facility-administered medications on file prior to visit. OBJECTIVE: Pulse (!) 114 Ht 167.6 cm (66) Wt 59 kg (130 lb) SpO2 99% BMI 20.98 kg/m?? On physical exam, the patient is [...] compartments. ASSESSMENT: Osteoarthritis, left knee PLAN: Patient with moderate to severe osteoarthritis, presumably this is due to the prior coccidiomycosis infection that he had a little over 10 years ago. I discussed treatment of the knee arthritis with him, including doing nothing, activity modification, compression, heat, anti-inflammatory medications, he is allowed some ibuprofen with his current antivirals. I was hesitant to perform a steroid injection today, due to the possibility of an infection which is a little bit higher. His CD4 does appear to be around 400. I discussed this with Dr. Rushing, who said it would be okay to do a steroid injection, I will leave this up to the patient to see if his arthritis flare resolves on its own. He seemed pleased with this plan, follow-up as needed. I am not concerned today for recurrent coccidiomycosis. Dr. Azar was the attending physician available in the clinic today if needed. A consultation was not required. This note was prepared using voice recognition software and the EMR. There may be inadvertent errorsand omissions. SCOTT Montanez 12/06/2019 documented in this encounter Plan of Treatment Upcoming Encounters Date Type Specialty Care Team Description 04/14/2022 Office Visit Infectious Disease Lilian Rushing MD [address] [facility], [address] [place] [address] (Wo rk) documented as of this encounter Procedures Procedure Name Priority Date/Time Associated Diagnosis Comme nts LDL CHOL DIRECT - Routine 12/05/2019 16:30 Arthritis of left R esults for this [facility] EST knee procedure are i n the results section. documented in this encounter Results LDL CHOL DIRECT - [facility] (12/05/2019 16:30 EST) LDL CHOLESTEROL 96 mg/dL [facility] Comment: MED CENTER LAB The National Cholesterol Education Program Adult Treat ment Panel III (NCEP-ATP III) provides the following classifications of LDL: Category ? mg/dl Optimal ?<100 ? Near Optimal ? 100-129 Borderline High ?130-159 High ? 160-189 Very High ?> or = 190 Specimen Performing Organization Address City/State/ZIP Code Phon e Number [facility] [address] [place], [place] [id number] [place] [address] LAB documented in this encounter Visit Diagnoses Diagnosis Arthritis of left knee - Primary Unspecified arthropathy, lower leg documented in this encounter Care Teams [employer] Membership Sales Agent Relationship Specialty Start Date End Date Marcy Alvarenga, PCP - General Family Medicine - Primary 1 11/13/18 DONOR RELATIONS MANAGER Care [address] [place] [phone] documented as of this encounter
--- OUTSIDE RECORDS SUMMARY | 2022-03-10 21:42 | XMS_ITS | Encounter Summary ---
:1965 Author Organization [facility] Address [address] [place] [address] Care Team Providers Name Role Phone Marcy Alvarenga CONCRETE TRUCK DRIVER Primary Care Provider [phone] Reason for Visit Reason Onset Date Comments Wound Infection 08/21/2020 Encounter Details Date Type Department Care Team Description 08/21/2020 Telephone [facility] Elizabeth Peguero MD Wound Infection [facility] [address] [place] [address] [address] [phone] [place] [address] (Wo rk) Social History Tobacco Use Types [...] Sig Dispensed Refills Start Date End Date chlorhexidine (HIBICLENS) Use to wash yourself 473 mL 1 08/21/2020 4 % liquidIndications: head to toe with Community acquired MRSA this soap daily for infection at least 1 week doxycycline (VIBRA-TABS) Take 1 Tab by mouth 20 Tab 0 08/31/2020 100 mg tabletIndications: 2 times daily for 10 Community acquired MRSA days. infection documented in this encounter Miscellaneous Notes Telephone Encounter - Elizabeth Peguero MD - 08/21/2020 1738 EDT NA at present. Please try to contact patient 08/22 with my previous note dated 08/21/2020/ Of note, stop Cephalexin antibiotic. elephone Encounter - Carly Clayton - 08/21/2020 1428 EDT Ha called in- verified phone number and added parent contact- Please call , he is having continued symptoms, [id number] signed by Carly Clayton at 08/21/2020 14:29 EDTTelephone Encounter - Elizabeth Peguero MD - 08/21/2020 1017 EDT Neither phone number works. I am mailing a note to patient. Sending in prescription for change to Doxycycline 100 mg oral BID x 7 days, and Hibiclens to wash from head to toe for 1 week. Patient will need to wash sheets daily for1 week during this process, and wipe down commonly used areas in the home with antiseptic wipes regularly. elephone Encounter - Elma Jules - 08/21/2020 0927 EDT Nettie from the lab called with MRSA + results from head wound culture. Please advise. 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
--- OUTSIDE RECORDS SUMMARY | 2022-03-10 21:42 | XMS_ITS | Encounter Summary ---
:1965 Author Organization [facility] Address [address] [place] [address] Care Team Providers Name Role Phone Marcy Alvarenga STRATEGIC MARKETING SPECIALIST Primary Care Provider [phone] Reason for Visit Reason Onset Date Comments Coordination Of Care 10/05/2019 Encounter Details Date Type Department Care Team Description 10/05/[address] [facility] - Brandon Alvarenga ation Of Care [facility] Family Medicine - Marcy Ruiz NP [address], [facility] [address] [place] [address] [place] [address] (Wo rk) Social History Tobacco Use [...] this encounter Miscellaneous Notes Telephone Encounter - Robert Hobbs RN - 10/06/2019 1148 EST Spoke to ID regarding patient insurance needs. Referred to Patient Navigators for assistance establishing Medicaid coverage. Creating encounter for tracking purposes. documented in this encounter Plan of Treatment Upcoming Encounters Date Type Specialty Care Team Description 04/14/2022 Office Visit Infectious Disease Lilian Rushing MD [address] [facility] [address] [place] [address] (Wo rk) documented as of this encounter Visit Diagnoses Not on filedocumented in this encounter Care Teams Promotions Intern Relationship Specialty Start Date End Date Marcy Alvarenga, PCP - General Family Medicine - Primary 1 11/13/18 STRATEGIC MARKETING SPECIALIST Care [address] [place] [address] [address] [place] [address] documented as of this encounter
--- OUTSIDE RECORDS SUMMARY | 2022-03-10 21:42 | XMS_ITS | Encounter Summary ---
:1965 Author Organization [facility] Address [address] [place] [address] Care Team Providers Name Role Phone Marcy Alvarenga GARAGE MECHANIC Primary Care Provider [phone] Reason for Visit Reason Onset Date Comments Medication Problem 09/29/2019 Encounter Details Date Type Department Care Team Description 09/29/2019 Telephone [facility] Aissatou Iraheta RN Medication Problem Infectious Disease [address] [place] [address] [place] [address] [phone] Social History Tobacco Use Types Packs/Day Years [...] Sig Dispensed Refills Start Date End Date nmbcncn-nfa-hrint-tenof Take 1 Tab by mouth 90 Tab 1 04/18/2020 ALAFEN (GENVOYA) daily for 90 days. [phone] mg tabletIndications: HIV infection documented in this encounter Miscellaneous Notes Telephone Encounter - Lilian Rushing MD - 10/24/2019 1014 EST Noted, thanks. elephone Encounter - Aissatou Iraheta RN - 10/24/2019 0938 EST Bernardino at [facility] said pt is all set, she mailed out his card today. If he would like to case picker meds before the card arrives he needs to give the pharmacy the following information, ID#: [id number] BIN#: [id number] PCN: [id number] I called [facility] in [place] and gave them the above information. The Genvoya is covered in full and theydo have it in stock. She will work on getting the rx ready for case picker. Left message for pt stating application has been approved, he will receive card in the mail, and [facility] is getting his rx ready for him. Call if he has any questions or problems. elephone Encounter - Aissatou Iraheta RN - 10/17/2019 1531 EST I called the [facility] office, they are closed until 10/21 elephone Encounter - Aissatou Iraheta RN - 10/17/2019 1405 EST Pt stopped in with completed application, pay stubs, and cable bill. He could not find his old tax 1040 form, its in [place]. He has his brother look for it but he couldn't find it. I faxed the completed application to the [facility] coordinator. I said I can send in his rx to the [facility] in [place]. Once the application is approved he can pick his meds up there. I will call [facility] later today to confirm the received his application. elephone Encounter - Aissatou Iraheta RN - 10/05/2019 1624 EST Pt stopped in. I reviewed the AP application with him. He will fill it out and drop it off Thursday this week. He is certain his old ID provider will not refill the Genvoya. He has not taken it since Thursday. He asked if this gap in therapy will be an issue. I said we want him to take it every day to prevent resistance but I will check with JL. I also gave him information to the Patient Navigators at [facility] who can sit down with [place] per [facility]. elephone Encounter - Aissatou Iraheta RN - 10/05/2019 1039 EST Call from [facility] specialty pharmacy. Insuance is stating [place] is not part of medicaid. I spoke with the Sabiha the pharmacist. They are using pts [place] insurance. If Dr. Rushing [place] then the rx will not be covered by insurance. Pt can call his old provider and see if they can send in an rx for 30 days. I said we are hoping to set him up with [place] Medicaid and [place] for his rx. I will call pt and discuss. elephone Encounter - Aissatou Iraheta RN - 09/29/2019 1609 EST Pt called looking for help filling out [employer] paperwork and also applying for [place] medicaid. I sent a message to PCP [facility] to see if they can help him with the insurance application. documented in this encounter Plan of Treatment Upcoming Encounters Date Type Specialty Care Team Description 04/14/2022 Office Visit Infectious Disease Lilian Rushing MD [address] [place] [address], [address] [place] [address] (Wo rk) documented as of this encounter Visit Diagnoses Not on filedocumented in this encounter Discontinued Medications Medication Sig Discontinue Reason Start Date End Date lfetydj-tbi-wwmwe-tenof Take 1 Tab by mouth Reorder 09/27/2019 10/17/2019 ALAFEN (GENVOYA) daily for 90 days. [phone] mg tabletIndications: HIV infection documented as of this encounter Care Teams Critical Care Registered Nurse Relationship Specialty Start Date End Date Marcy Alvarenga, PCP - General Family Medicine - Primary 1 11/13/18 GARAGE MECHANIC Care [address] [place] [phone] documented as of this encounter
--- OUTSIDE RECORDS SUMMARY | 2022-03-10 21:42 | XMS_ITS | Encounter Summary ---
:1965 Author Organization [facility] Address [address] [place] [address] Care Team Providers Name Role Phone Marcy Alvarenga BAG MACHINE TENDER Primary Care Provider [phone] Reason for Visit Reason Onset Date Comments COVID-19 03/07/2020 testing Encounter Details Date Type Department Care Team Description 03/07/2020 Telephone [facility] Aissatou Iraheta RN COVID-19 (testing) Infectious Disease [address] [place] [address] [place], [place] [address] [phone] Social History Tobacco Use Types Packs/Day Years [...] / COVID-19? documented as of this encounter Miscellaneous Notes Telephone Encounter - Mendez Clayton - 03/07/2020 1421 EDT ..C-19 screening recommended by provider. Routed for testing ordering. Vehicle [employer] Color: [place] Cell #: [phone] Spoke to patient and verbally gave instructions for Testing Facility. Patient is instructed to be there at 3:00 pm mingo. elephone Encounter - Gabrielle Diaz - 03/07/2020 1421 EDT LMOM for patient to call back to be scheduled for testing. elephone Encounter - Aissatou Iraheta RN - 03/07/2020 1407 EDT Poli is a 54 year old male with history of HIV. He c/o diarrhea x 2 weeks. Denies fevers, sob, cough, sore throat, runny nose, lost of taste and smell. No contact with anyone covid positive. Elderly parents and sister are healthy. He has been working on projects around his parents house. Diarrhea can be urgent at times. Temp today was 97.8. He agrees to covid testing. I advised he self- isolate until the results are back. He has a flight planned for tomorrow to [place]. Dr. Rushing Authorized testing. COVID-19 testing has been ordered in today's nurse visit. Sending to [facility] mobile testing pss for scheduling. documented in this encounter Plan of Treatment Upcoming Encounters Date Type Specialty Care Team Description 04/14/2022 Office Visit Infectious Disease Lilian Rushing MD [address] [facility], [address] [place] [address] (Wo rk) documented as of this encounter Visit Diagnoses Not on filedocumented in this encounter Care Teams Cartridge Gauger Relationship Specialty Start Date End Date [place]-Marcy Santos, PCP - General Family Medicine - Primary 1 11/13/18 BAG MACHINE TENDER Care [address] [place] [address] [address] [place] [address] documented as of this encounter
[2022-03-10 21:48] LABS: Absolute Basophil Count 0.02 10^3/uL (0.0-0.2); Absolute Eosinophil Count 0.05 10^3/uL (0.0-0.7); Absolute Lymphocyte Count 1.55 10^3/uL (1.2-3.4); Absolute Monocyte Count 0.95 10^3/uL (0.1-0.8); Absolute Neutrophil Count 4.54 10^3/uL (1.2-6.7); Basophils % 0.3; Eosinophils % 0.7; HCT 34.7 % (40.0-50.0); HGB 10.9 g/dL (13.5-17.5); Immature Grans % 1.4; Lymphocytes % 21.5; MCH 27.4 pg (27.0-33.0); MCHC 31.4 % (32.0-36.0); MCV 87 fL (80-95); MPV 9.4 fL (8.0-11.0); Monocytes % 13.2; Neutrophils % 62.9; Platelet Count 417 10^3/uL (130-400); RBC 3.98 10^6/uL (4.36-5.78); RDW 14.4 % (11.8-14.1); RDW-SD 46.1 fL; WBC 7.21 10^3/uL (4.4-10.8)
[2022-03-10 22:00] LABS: ALT 25 U/L (16-63); AST 17 U/L (15-37); Albumin 3.6 g/dL (3.4-5.0); Alkaline Phosphatase 114 U/L (46-116); BUN 27 mg/dL (7-18); Bilirubin, Total 0.3 mg/dL (0.2-1.0); CREATININE 1.7 mg/dL (0.70-1.30); Calcium 8.7 mg/dL (8.5-10.1); Chloride 103 mmol/L (98-107); Estimated GFR 42.05 (mL/min/1.73m2); Glucose 92 mg/dL (74-106); Magnesium 2.4 mg/dL (1.8-2.4); PHOSPHORUS 5.7 mg/dL (2.6-4.7); Potassium 5.4 mmol/L (3.5-5.1); Sodium 138 mmol/L (136-145); Total Protein 7.4 g/dL (6.4-8.2)
== END 2022-03-10 21:39 | disposition home or self-care (01) ==
LOC: LBN 21:38
PROVIDERS: Visit Provider Internal Medicine Infectious Disease
DX: B95.62 Methicillin resistant Staphylococcus aureus infection as the cause of diseases classified elsewhere (principal); M01.X62 Direct infection of left knee in infectious and parasitic diseases classified elsewhere
CPT/HCPCS: 80053; 83735; 84100; 85025

== ENCOUNTER 2022-03-13 20:30 | Outpatient (REF) | payer MEDICAID, SELFPAY ==
--- OUTSIDE RECORDS SUMMARY | 2022-03-13 20:33 | XMS_ITS | Encounter Summary ---
:1965 Author Organization [facility] Address [address] [place] [address] Care Team Providers Name Role Phone Marcy Alvarenga TRANSFER OPERATOR Primary Care Provider Reason for Referral Radiology Services (Routine/Next Available) - Authorization Not Required Specialty Diagnoses / Procedures Referred By Contact Refer red To Contact Radiology Diagnoses Coccidioidomycosis Arthritis of left knee Lilian Rushing MD [facility] Mri Procedures MR KNEE W WO CONTRAST LEFT [address] [facility], [address] [phone] Referral ID Status Reason Start Expiration Visits Visits Date Date Requested Authorized [id number] Authorization Not 09/03/2021 1 1 Required Reason for Visit Radiology Services (Routine/Next Available) - Authorization Not Required Specialty Diagnoses / Procedures Referred By Contact Refer red To Contact Radiology Diagnoses Coccidioidomycosis Arthritis of left knee Lilian Rushing MD [facility] Mri Procedures MR KNEE W WO CONTRAST LEFT [address] [facility], [address] [place], [place] [address] [place] [phone] Referral ID Status Reason Start Expiration Visits Visits Date Date Requested Authorized [id number] Authorization Not 09/03/2021 1 1 Required Encounter Details Date Type Department Care Team Description 11/27/2021 Hospital Encounter [facility] - C occidioidomycosis; [facility] MRI Arthritis of left knee [address] [place] [address] Social History Tobacco Use Types Packs/Day Years [...] 3 04/24 mg tablet MOUTH EVERY DAY [id number] Take 1 Tablet by 90 Tablet 3 202012/10/2021 ALAFEN (GENVOYA) mouth daily for 90 [phone] mg days. tabletIndications: HIV infection posaconazole (NOXAFIL) [...] Visit Infectious Disease Lilian Rushing MD [address] [place] [address], [address] [place] [address] (Wo rk) documented as [...] Lower Extremities Left Magnetic Resonance Specimen Impressions [facility] - 11/27/2021 20:08 EST [...] REGARDING THIS REPORT PLEASE CALL [facility] AT [phone] Narrative [facility] - 11/27/2021 20:08 EST [...] REGARDING THIS REPORT PLEASE CALL [facility] AT [phone] Performing Organization Address City/State/ZIP Code Phon e Number [facility] documented in this encounter [...] Last Indicated Resolved Time MRSAComment: Hx of VDPM-Nirc-69/23/2020 08/29/2021 08/29/20 21 C. Stoner 12/31/21 documented as of this encounter Care Teams Compliance Attorney Relationship Specialty Start Date End Date Gil-Marcy Santos, PCP - General Family Medicine - Primary 1 11/13/18 TRANSFER OPERATOR Care [address] [place] [phone] documented as of this encounter
--- OUTSIDE RECORDS SUMMARY | 2022-03-13 20:33 | XMS_ITS | Encounter Summary ---
:1965 Author Organization [facility] Address [address] [place] [address] Care Team Providers Name Role Phone Marcy Alvarenga STRATEGIC ACCOUNT MANAGER Primary Care Provider [phone] Reason for Visit Reason Onset Date Comments Medication Management 02/07/2022 Pt out of RX Encounter Details Date Type Department Care Team Description 02/07/2022 Telephone [facility] Medicat ion Management [facility] Family Medicine - Marcy Ruiz STRATEGIC ACCOUNT MANAGER (Pt out of RX) [address], [facility] [address] [place] [address] [place] [phone] (Wo rk) Social History Tobacco Use [...] Office Visit Infectious Disease Lilian Rushing MD [address] [place] [address], [address] [place] [address] (Wo rk) documented as of this encounter Visit Diagnoses Not on filedocumented in this encounter Discontinued Medications Medication Sig Discontinue Reason Start Date End Date TAMSulosin (FLOMAX) 0.4 TAKE 1 CAPSULE BY Reorder 11/07/2021 02/07/2022 mg capsule MOUTH ONCE DAILY documented as of this encounter Additional Health Concerns Infection Onset Date Last Indicated Resolved Time MRSAComment: Hx of TBDQ-Bxpa-68/23/2020 08/29/2021 08/29/20 21 C. Stoner 12/31/21 documented as of this encounter Care Teams Supervisor [place] Relationship Specialty Start Date End Date Gil-Marcy Santos, PCP - General Family Medicine - Primary 1 11/13/18 STRATEGIC ACCOUNT MANAGER Care [address] [place] [phone] documented as of this encounter
--- OUTSIDE RECORDS SUMMARY | 2022-03-13 20:33 | XMS_ITS | Encounter Summary ---
:1965 Author Organization Address [address] [place] [address] Care Team Providers Name Role Phone Marcy Alvarenga CASINO SUPERVISOR Primary Care Provider [phone] Encounter Details Date Type Department Care Team Description 10/07/2021 Phlebotomy Only [facility], [facility] Op Coccid ioidomycosis; - [facility] Phlebotomy Medication monitoring encounter [facility] - Outpatient Phlebotomy Drawing [address] [place] [address] Social History Tobacco Use Types Packs/Day Years [...] Office Visit Infectious Disease Lilian Rushing MD [address] [place] [address], [address] [place] [address] (Wo rk) documented as of this encounter Procedures Procedure Name Priority Date/Time Associated Comments Diagnosis MISCELLANEOUS TEST, Routine 10/07/2021 14:01 Coccidioido mycosis Results for this [facility] Medication procedure are i n monitoring the results encounter section. documented in this encounter Results MISCELLANEOUS TEST, [facility] (10/07/2021 14:01 EST) Miscellaneous Test, SEE NOTE [facility] Comment: LABORATORIES Test ? Result ?Flag ??Unit ?? RefValue Posaconazole, S ?1420 ?ng/mL ??>700 ? ADDITIONAL INFORMATION------- ?This test was developed and its performance jimmie [employer] ?determined by [facility] in a manner consistent with CLIA ?requirements. This test has not been cleared or approved by ?the U.S. Food and Drug Administration. ?Test Performed by: ?[facility] [place] [address] [place] [address] ?Refining Equipment Operator: Pritesh Mcgee M.D. Ph.D.; CLIA # [id number] Specimen Blood - Venous blood (substance) Performing Organization Address City/State/ZIP Code Phon e Number [facility] [address] [place] [address] documented in this encounter Visit Diagnoses Diagnosis Coccidioidomycosis Coccidioidomycosis, unspecified Medication monitoring encounter Encounter for therapeutic drug monitorin g documented in this encounter Additional Health Concerns Infection Onset Date Last Indicated Resolved Time MRSAComment: Hx of QKOO-Xhcq-90/23/2020 08/29/2021 08/29/20 21 C. Stoner 12/31/21 documented as of this encounter Care Teams Skiing Teacher Relationship Specialty Start Date End Date Gil-Marcy Santos, PCP - General Family Medicine - Primary 1 11/13/18 CASINO SUPERVISOR Care [address] [place] [phone] documented as of this encounter
--- OUTSIDE RECORDS SUMMARY | 2022-03-13 20:33 | XMS_ITS | Encounter Summary ---
:1965 Author Organization [facility] Address [address] [place] [address] Care Team Providers Name Role Phone Marcy Alvarenga DIVINITY PROFESSOR Primary Care Provider [phone] Encounter Details Date Type Department Care Team Description 01/07/2022 Phlebotomy Only [facility] Lab, [facility] Asymptomatic HIV infection (HCC); [facility] - [facility] Coccidioid omycosis [facility] - Outpatient Phlebotomy Drawing [address] [place] [address] Social History Tobacco Use Types Packs/Day Years [...] Visit Infectious Disease Lilian Rushing MD [address] [facility], [address] [place] [address] (Wo rk) documented as [...] EDT) Color UA Yellow Colorless to Dark [facility] Yellow [facility] Clarity UA Clear Clear [facility] Glucose UA Negative Negative [facility] Bilirubin UA Negative Negative [facility] Ketones UA Negative Negative [facility] Specific [place], 1.020 1.001 - 1.035 [facility] Urine [facility] Blood UA Negative Negative [facility] pH, UA 6.5 4.6 - 8.0 [facility] Protein UA Negative Negative [facility] Urobilinogen UA 0.2 0.2 , 1.0, Normal [facility] mg/dL [facility] Nitrite UA Negative Negative [facility] Leukocyte Esterase UA Negative Negative [facility] Specimen Urine - Urine specimen collection, clean catch (procedure) Performing Organization Address [facility]/ZIP Code Phon e Number [facility] [address] [place] [address] MISCELLANEOUS TEST, TRUMANN (01/07/2022 9:24 EDT) Pathologist [facility] Miscellaneous Test, SEE NOTE [facility] Comment: LABORATORIES Test ? Result ?Flag ??Unit ?? RefValue Posaconazole, S ?2310 ?ng/mL ??>700 ? ADDITIONAL INFORMATION------- ?This test was developed and its performance jimmie [employer] ?determined by [facility] in a manner consistent with CLIA ?requirements. This test has not been cleared or approved by ?the U.S. Food and Drug Administration. ?Test Performed by: ?[facility] [place] [address] ?[address] [place] [address] ?Field Marketing Team Leader: Pritesh Mcgee M.D. Ph.D.; CLIA # [id number] Specimen Blood - Venous blood (substance) Performing Organization Address City/[facility]/ZIP Code Phon e Number [facility] [address] [place] [address] (ABNORMAL) COMPREHENSIVE METABOLIC PANEL (CMP) (01/07/2022 9:24 EDT) Pathologist [facility] nature Sodium 138 136 - 145 [facility] mmol/L [facility] Potassium 4.2 3.5 - 5.0 [facility] mmol/L [facility] Chloride 99 96 - 110 mmol/L [facility] CO2 Total 29 22 - 32 mmol/L [facility] Glucose 113 (H) 70 - 100 mg/dL [facility] BUN 17 10 - 26 mg/dL [facility] Creatinine 0.90 0.66 - 1.25 [facility] mg/dL [facility] eGFR 96 >60 [facility] mL/min/1.73m2 [facility] Total Protein 6.8 6.3 - 8.2 g/dL [facility] Albumin 3.8 3.4 - 4.9 g/dL [facility] Alkaline Phosphatase 90 38 - 126 U/L [facility] AST 23 15 - 46 U/L [facility] ALT 18 <50 U/L [facility] Bilirubin, Total 0.3 <1.4 mg/dL [facility] Calcium 8.7 8.5 - 10.5 [facility] mg/dL [facility] Albumin/Globulin Ratio 1.3 1.0 - 2.[address] [facility] Anion Gap 10 5 - 14 [facility] Specimen Blood - Venous blood (substance) Performing Organization Address City/State/ZIP Code Phon e Number [facility] [address] [place] [address] HIV 1 RNA QUANTITATION (01/07/2022 9:24 EDT) HIV RNA Detection, Undetected Undetected [facility] Qual copies/mL LABORATORY SERVICES Specimen Blood - Venous blood (substance) Narrative [facility] - 01/09/2022 14:05 EDT New platform in use 05/20/2021 The quantification range of this assay i s 20 IU/mL to 10,000,000 IU/mL. ??Testing was performed using the Areli HIV test ([employer] with the areli 6800 System. Performing Organization Address City/State/ZIP Code Phon e Number [facility] [address] [place] [address] SERVICES T CELL SUBSETS (01/07/2022 9:24 EDT) Pathologist Sig nature % CD3 72 56 - 84 % [facility]OR[facility]ORY SERVICES % CD4 32 31 - 64 % [facility] SERVICES % CD8 36 9 - 39 % [facility] Absolute CD3 1,086 840-2,669 Cells/uL [facility] SERVICES Absolute CD4 493 488-1,734 Cells/uL [facility] Absolute CD8 547 154-1,097 Cells/uL [facility] 01/31 Ratio 0.90 >=0.90 [facility] Specimen Blood - Venous blood (substance) Performing Organization Address City/State/ZIP Code Phon e Number [facility] [address] [place] [address] SERVICES documented in this encounter Visit Diagnoses Diagnosis Asymptomatic HIV infection (HCC) Asymptomatic human immunodeficiency viru s (HIV) infection status Coccidioidomycosis Coccidioidomycosis, unspecified documented in this encounter Additional Health Concerns Infection Onset Date Last Indicated Resolved Time MRSAComment: Hx of NWOF-Ndgb-03/23/2020 08/29/2021 08/29/20 21 C. Stoner 12/31/21 documented as of this encounter Care Teams Booking Manager Relationship Specialty Start Date End Date Gil-Marcy Santos, PCP - General Family Medicine - Primary 1 11/13/18 DIVINITY PROFESSOR Care [address] [place] [phone] documented as of this encounter
--- OUTSIDE RECORDS SUMMARY | 2022-03-13 20:33 | XMS_ITS | Encounter Summary ---
:1965 Author Organization [facility] Address [address] [place] [address] Care Team Providers Name Role Phone Marcy Alvarenga EMTS Primary Care Provider [phone] Encounter Details Date Type Department Care Team [...] Visit Infectious Disease Lilian Rushing MD [address] [facility], [address] [place] [address] (Wo rk) documented as of this encounter Visit Diagnoses Not on filedocumented in this encounter Additional Health Concerns Infection Onset Date Last Indicated Resolved Time MRSAComment: Hx of TOIG-Axxu-58/23/2020 08/29/2021 08/29/20 21 C. Stoner 12/31/21 documented as of this encounter Care Teams Locker Attendant Relationship Specialty Start Date End Date Marcy Alvarenga, PCP - General Family Medicine - Primary 1 11/13/18 EMTS Care [address] [place] [address] [address] [place] [phone] documented as of this encounter
--- OUTSIDE RECORDS SUMMARY | 2022-03-13 20:33 | XMS_ITS | Clinical Summary ---
:[address] [facility] Address [address] [place] [address] Care Team Providers Name Role Phone Marcy Alvarenga MOULDER OPERATOR Primary Care Provider [phone] Allergies No known active allergies Medications Medication [...] Tablet 3 04/24/2021 Active tablet EVERY DAY mxdcvfd-eab-jpkvn-tenof Take 1 Tablet by mouth 90 Tablet 3 Active ALAFEN (GENVOYA) daily for 90 days. [phone] mg tabletIndications: HIV infection TAMSulosin (FLOMAX) 0.4 [...] Encounters Date Type Specialty Care Team Description 03/12/2022 Hospital Infusion Therapy Encounter 03/12/2022 Transcribe Orders Infusion Therapy Adeel Hensley 02/27/2022 Telephone Family Medicine [place], Orders (Non Pre-visit) Marcy Ruiz NP 02/26/2022 Telephone Family Medicine [place], Patient Info rmation Marcy Ruiz NP Update ([facility] TCM) 02/24/2022 Telephone Family Medicine [place], Urinary Trac t Infection Marcy Ruiz NP 02/07/2022 Telephone Family Medicine [place], Medication M anagement Marcy Ruiz NP (Pt out of R X) 02/07/2022 Telephone Infectious Lilian Rushing, Medications Refill Disease 01/16/2022 Telephone Infectious Lilian Rushing, Medication Management Disease 01/09/2022 Office Visit Infectious Lilian Rushing, Asymptomati c HIV infection (HCC) (Primary Dx); Disease Coccidioidomyco sis; Other chronic o steomyelitis of left tibia (HCC); Medication kana toring encounter 01/07/2022 Phlebotomy Only Clinical Lab, [facility] Asymptomatic HIV infection (HCC); Laboratory Phlebotomy Coccidioidomyco sis 12/30/2021 Emergency Emergency [facility], Acute nonintrac table Medicine Crys Lundy DO headache, unspecified Shi, headache type ( Primary Faustino Guido MD Dx) 12/30/2021 Travel 12/23/2021 Telephone Infectious Aissatou Iraheta, LAUREN Pre-visit Pl anning Disease from Last 3 [...] Office Visit Infectious Disease Lilian Rushing MD [address] [place] [address], [address] [place] [address] (Wo rk) Health Maintenance Due Date Last [...] EDT) Color UA Yellow Colorless to Dark [facility] Yellow [facility] Clarity UA Clear Clear [facility] Glucose UA Negative Negative [facility] Bilirubin UA Negative Negative [facility] Ketones UA Negative Negative [facility] Specific [place], 1.020 1.001 - 1.035 [facility] Urine [facility] Blood UA Negative Negative [facility] pH, UA 6.5 4.6 - 8.0 [facility] Protein UA Negative Negative [facility] Urobilinogen UA 0.2 0.2 , 1.0, Normal [facility] mg/dL [facility] Nitrite UA Negative Negative [facility] Leukocyte Esterase UA Negative Negative [facility] Specimen Urine - Urine specimen collection, clean catch (procedure) Performing Organization Address City/State/ZIP Code Phon e Number [facility] [address] [place] [address] HIV 1 RNA QUANTITATION (01/07/2022 9:24 EDT) [facility] HIV RNA Detection, Undetected Undetected [facility] Qual copies/mL LABORATORY SERVICES Specimen Blood - Venous blood (substance) Narrative [facility] SERVICES - 01/09/2022 14:05 EDT New platform in use 05/20/2021 The quantification range of this assay i s 20 IU/mL to 10,000,000 IU/mL. ??Testing was performed using the Areli HIV test ([employer] with the areli 6800 System. Performing Organization Address [facility] Phon e Number [facility]OR[facility] [address] [place] [address] SERVICES MISCELLANEOUS TEST, ATASCOSA (01/07/2022 9:24 EDT) Miscellaneous Test, SEE NOTE [facility] Comment: LABORATORIES Test ? Result ?Flag ??Unit ?? RefValue Posaconazole, S ?2310 ?ng/mL ??>700 ? ADDITIONAL INFORMATION------- ?This test was developed and its performance jimmie Compact Particle Acceleration ?determined by [facility] in a manner consistent with CLIA ?requirements. This test has not been cleared or approved by ?the U.S. Food and Drug Administration. ?Test Performed by: ?[facility] [address] [place] [address] ?Rose Grader: Pritesh Mcgee M.D. Ph.D.; CLIA # [id number] Specimen Blood - Venous blood (substance) Performing Organization Address City/[facility] Phon e Number [facility] [address] [place] [address] T CELL SUBSETS (01/07/2022 9:24 EDT) Pathologist Sig nature % CD3 72 56 - 84 % [facility]ORATORY SERVICES % CD4 32 31 - 64 % [facility] SERVICES % CD8 36 9 - 39 % [facility] SERVICES Absolute CD3 1,086 840-2,669 Cells/uL [facility] SERVICES Absolute CD4 493 488-1,734 Cells/uL [facility] SERVICES Absolute CD8 547 154-1,097 Cells/uL [facility] SERVICES 4/8 Ratio 0.90 >=0.90 [facility] SERVICES Specimen Blood - Venous blood (substance) Performing Organization Address City/State/ZIP Code Phon e Number [facility] [address] [place] [address] SERVICES (ABNORMAL) COMPREHENSIVE METABOLIC PANEL (CMP) (01/07/2022 9:24 EDT)Only the most recent of2 resultswithin the time period is included. Pathologist Sig nature Sodium 138 136 - 145 [facility] mmol/L [facility] Potassium 4.2 3.5 - 5.0 [facility] mmol/L [facility] Chloride 99 96 - 110 mmol/L [facility] CO2 Total 29 22 - 32 mmol/L [facility] Glucose 113 (H) 70 - 100 mg/dL [facility] BUN 17 10 - 26 mg/dL [facility] Creatinine 0.90 0.66 - 1.25 [facility] mg/dL [facility] eGFR 96 >60 [facility] mL/min/1.73m2 [facility] Total Protein 6.8 6.3 - 8.2 g/dL [facility] Albumin 3.8 3.4 - 4.9 g/dL [facility] Alkaline Phosphatase 90 38 - 126 U/L [facility] AST 23 15 - 46 U/L [facility] ALT 18 <50 U/L [facility] Bilirubin, Total 0.3 <1.4 mg/dL [facility] Calcium 8.7 8.5 - 10.5 [facility] mg/dL [facility] Albumin/Globulin Ratio 1.3 1.0 - 2.5 [facility] ME D [facility] Anion Gap 10 5 - 14 [facility] Specimen Blood - Venous blood (substance) Performing Organization Address City/State/ZIP Code Phon e Number [facility] [address] [place] [address] ECG REPORT - SCANNED (12/31/2021 8:48 EST) Specimen Narrative This result has an attachment that is no t available. ED LUMBAR PUNCTURE BEDSIDE OR CLINIC PERFORMED (12/30/2021 21:31 EST) Narrative [facility] EKG - 12/30/2021 21:3 1 EST Faustino Shi MD ? 12/30/2021 23:08 Lumbar Puncture Date/Time: 12/30/2021 21:31 Performed by: Faustino Shi MD Authorized by: Faustino Shi MD Consent: ??Consent obtained: ??Verbal ??Consent given by: ??Patient ??Risks discussed: ??Bleeding, infectio n, pain, headache and nerve damage ??Alternatives discussed: ??Alternative treatment and observation [place] protocol: ??Procedure explained and questions ans wered [...] well, no immediate complications Performing Organization Address [facility]/ZIP Code Phon e Number [facility] EKG CELL COUNT, CSF (12/30/2021 21:23 EST) RBC, CSF 0Comment: None /cmm [facility] Nucleated Cells, 0Comment: None 0 - 5 /cmm [facility] CSF Seen [facility] Total Volume CSF 3.5 ml [facility] Tube Cntd. 4 [facility] Comment, CSF Clear and [facility] colorless [facility] Tube Vol. 1.0 ml [facility] Specimen Fluid - Cerebrospinal fluid sample (spec imen) Performing Organization Address [facility] Phon e Number [facility] [address] [place] [address] BACTERIAL CULTURE/SMEAR (12/30/2021 21:23 EST) Pathologist Sig nature Organism ID No Growth [facility] Smear No Neutrophils [facility] SeenComment: Cytospin [facility] gram stain interpreted. Smear No bacteria seen [facility] Specimen Fluid - Cerebrospinal fluid sample (spec imen) Performing Organization Address [facility] Phon e Number [facility] [address] [place] [address] (ABNORMAL) TOTAL PROTEIN, CSF (12/30/2021 21:23 EST) Pathologist Sig nature Total Protein, CSF 47 (H) 12 - 45 mg/dL [facility] Specimen Fluid - Cerebrospinal fluid sample (spec imen) Performing Organization Address [facility] Phon e Number [facility] [address] [place] [address] GLUCOSE CSF (12/30/2021 21:23 EST) Glucose, CSF 59 40 - 70 mg/dL [facility] Comment: [facility] NOTE: Reference range for Glucose in CSF: 60% - 80% of the S lucy/Plasma Glucose Specimen Fluid - Cerebrospinal fluid sample (spec imen) Performing Organization Address [facility] Code Phon e Number [facility] [address] [place] [address] CT HEAD WO CONTRAST (12/30/2021 20:45 EST) Anatomical Region Laterality Modality Head Computed Tomography Specimen Impressions [facility] - 12/30/2021 21:13 EST No hydrocephalus, acute intracranial hemorrhage, or mass effect. THIS DOCUMENT HAS BEEN ELECTRONICALLY SI GNED BY ANDREW CHRIS MD FOR ANY QUESTIONS OR CONCERNS REGARDING THIS REPORT PLEASE CALL [facility] AT [phone] Narrative [facility] - 12/30/2021 21:13 EST [...] REGARDING THIS REPORT PLEASE CALL [facility] AT [phone] Performing Organization Address City/State/ZIP Code Phon e Number [facility] EKG 12-LEAD (12/30/2021 19:42 EST) Specimen Narrative [facility] - 8:43 EST ? CV ? Test Date: ?2021-12-30 Pat Name: ? HA SORIA ?Department: ? Room: ? C03 Gender: ? Male ? Lead Nurse: ?? LR : ?1965 ? Requested By: HEDY Eisenberg Order Number: [id number] ? Reading : ?? IDALIA SANTOS MD ? Measurements Intervals ?[place] ? Rate: ? 61 ? P: ?78 [...] Procedure Note Idalia Santos MD - 12/31/2021 [facility] Test Date: 2021-12-30 Pat Name: HA SORIA Department: Room: C03 Gender: Male Lead Nurse: FABIANO : 1965 Requested By: HEDY Eisenberg Order Number: [id number] Reading MD: Shabbir SANTOS MD Measurements Intervals [place] Rate: 61 P: 78 MI: 142 QRS: [...] Organization Address City/State/ZIP Code Phon e Number [facility] (ABNORMAL) COMPLETE BLOOD COUNT AND DIFFERENTIAL (12/30/2021 19:38 EST) Pathologist Sig nature WBC 7.17 4.00 - 10.40 [facility] K/[facility] RBC 5.28 4.36 - 5.78 [facility] Hemoglobin 15.0 13.8 - 17.3 [facility] gm/dL [facility] HCT 43.4 39.5 - 50.2 % [facility] MCV 82 81 - 95 fl [facility] MCH 28.4 27.6 - 33.0 pg [facility] MCHC 34.6 32.8 - 36.4 [facility] gm/dL [facility] RDW-CV 13.7 <14.2 % [facility] RDW-SD 41.0 <46.0 fl [facility] PLT 372 141 - 377 K/cmm [facility] MPV 8.7 (L) 9.5 - 12.7 fl [facility] Neutrophils 68.0 % [facility] Lymphocytes 19.9 % [facility] Monocytes 9.9 % [facility] Eosinophils 1.1 % [facility] Basophils 0.4 % [facility] Immature Grans 0.7 % [facility] Absolute Neutrophils 4.87 2.20 - 8.85 [facility] K/[facility] Absolute Lymphocytes 1.43 1.09 - 3.30 [facility] Absolute Monocytes 0.71 0.10 - 0.80 [facility] Absolute Eosinophils 0.08 0.03 - 0.61 [facility] Absolute Basophils 0.03 0.01 - 0.11 [facility] K/cmm [facility] Absolute Immature 0.05 0.00 - 0.06 [facility] Grans K/cmm [facility] Type of Differential: Auto [facility] Specimen Blood - Venous blood (substance) Performing Organization Address City/State/ZIP Code Phon e Number [facility] [address] [place] [address] (ABNORMAL) C REACTIVE PROTEIN (12/30/2021 19:38 EST) Pathologist Sig nature C-Reactive Protein 10.0 (H) <10.0 mg/L [facility] Specimen Blood - Venous blood (substance) Performing Organization Address City/State/ZIP Code Phon e Number [facility] [address] [place] [address] from Last 3 Months Additional Health Concerns Infection Onset Date Last Indicated MRSAComment: Hx of IRXS-Wpml-35/23/2020 08/29/2021 08/29/2021 C. Stoner 12/31/21 Insurance Payer Benefit Plan / Subscriber ID Effective Phone Address T ype Group Dates [place] [id number] 2021-Prese [address] [place] [phone] (Work) [phone] [place] Personal/Family Self 1965 [address] [phone] [place] (Work) [phone] [place] Personal/Family Self 1965 [address] [phone] [place] (Work) [phone] [place] Personal/Family Self 1965 [phone] [address] [phone] [place] (Work) [phone] [place] Personal/Family Self 1965 [phone] [address] [facility] [facility] (Home) [facility] [phone] [place] (Work) [phone] [place] Personal/Family Self 1965 [phone] [address] [facility] [address] (Home) [facility] [phone] [place] (Work) [phone] [place] Personal/Family Self 1965 [phone] [address] [facility] [address] (Home) [facility] [phone] [place] (Work) [phone] [place] Personal/Family Self 1965 [phone] [address] [facility] (Home) [facility] [phone] [place] (Work) [phone] Care Teams Senior Recruitment Consultant Relationship Specialty Start Date End Date Marcy Alvarenga, PCP - General Family Medicine - Primary 1 11/13/18 MOULDER OPERATOR Care [address] [place] [phone]
--- OUTSIDE RECORDS SUMMARY | 2022-03-13 20:33 | XMS_ITS | Encounter Summary ---
:1965 Author Organization [facility] Address [address] [place] [address] Care Team Providers Name Role Phone Marcy Alvarenga SEAMLESS TUBE ROLLER Primary Care Provider [phone] Reason for Visit Reason Comments Other Encounter Details Date Type Department Care Team Description 11/26/2021 Refill [facility] Lilian Rushing MD Other Infectious Disease [address] [facility] [address] [facility], [address] [place], [place] [address] [place] [phone] (Wo rk) Social History Tobacco Use [...] Unable to edit the Posa rx from [facility] pharmacy. Will send new rx for 90 days documented in this encounter Plan of Treatment Upcoming Encounters Date Type Specialty Care Team Description 04/14/2022 Office Visit Infectious Disease Lilian Rushing MD [address] [place] [address] [address] [place] [address] (Wo rk) documented as [...] Last Indicated Resolved Time MRSAComment: Hx of YPZL-Goar-81/23/2020 08/29/2021 08/29/20 21 C. Stoner 12/31/21 documented as of this encounter Care Teams Fish Agent Relationship Specialty Start Date End Date Gil-Marcy Santos, PCP - General Family Medicine - Primary 1 11/13/18 SEAMLESS TUBE ROLLER Care [address] [place] [address] [address] [place] [address] documented as of this encounter
--- OUTSIDE RECORDS SUMMARY | 2022-03-13 20:33 | XMS_ITS | Encounter Summary ---
:1965 Author Organization [facility] Address [address] [place] [address] Care Team Providers Name Role Phone Marcy Alvarenga STULL HEWER Primary Care Provider [phone] Reason for Visit Reason Onset Date Comments Urinary Tract Infection 02/24/2022 Encounter Details Date Type Department Care Team Description 02/24/2022 Telephone [facility] [place] Urinary Tract [facility] - Marcy Ruiz STULL HEWER Infection [place] [address] [facility] [address] [facility] [place] [address] [place] [address] [place] [phone] (Wo rk) Social History Tobacco Use [...] a nurse. Please call shellie back at [phone] signed by Areglia Guo at 02/24/2022 15:06 EDTdocumented in this encounter Plan of Treatment Upcoming Encounters Date Type Specialty Care Team Description 04/14/2022 Office Visit Infectious Disease Lilian Rushing MD [address] [place] [address] [address] [place] [address] (Wo rk) Scheduled Orders Name Type Priority Associated Diagnoses Order S chedule UA WITH REFLEX SEDIMENT Lab Routine Dysuria Expe cted: 02/24/2022 (CULTURE IF POS) (Approximat e), Expires: 02/24/2023 documented as of this encounter Visit Diagnoses Diagnosis Dysuria - Primary documented in this encounter Additional Health Concerns Infection Onset Date Last Indicated Resolved Time MRSAComment: Hx of MBFF-Yhmj-01/23/2020 08/29/2021 08/29/20 21 C. Stoner 12/31/21 documented as of this encounter Care Teams Repairer Recreational Vehicle Relationship Specialty Start Date End Date Gil-Marcy Santos, PCP - General Family Medicine - Primary 1 11/13/18 STULL HEWER Care [address] [place] [address] [address] [place] [address] documented as of this encounter
--- OUTSIDE RECORDS SUMMARY | 2022-03-13 20:33 | XMS_ITS | Encounter Summary ---
:1965 Author Organization [facility] Address [address] [place] [address] Care Team Providers Name Role Phone Marcy Alvarenga EMPLOYEE BENEFITS SPECIALIST Primary Care Provider [phone] Reason for Visit Reason Onset Date Comments Medications Refill 12/10/2021 Encounter Details Date Type Department Care Team Description 12/10/2021 Telephone [facility] Aissatou Iraheta RN Medications Refill Infectious Disease [address] [place] [address] [place] [address] [phone] Social History Tobacco Use Types Packs/Day Years [...] Sig Dispensed Refills Start Date End Date jhllcrl-uay-xxzia-tenof Take 1 Tablet by 90 Tablet 3 2021 ALAFEN (GENVOYA) mouth daily for 90 [phone] mg days. tabletIndications: HIV infection posaconazole (NOXAFIL) [...] Visit Infectious Disease Lilian Rushing MD [address] [facility] [address] [place] [address] (Wo rk) documented as of this encounter Visit Diagnoses Not on filedocumented in this encounter Discontinued Medications Medication Sig Discontinue Reason Start Date End Date npfmuug-adp-vhfer-tenof Take 1 Tablet by Reorder 06/18/2021 12/10/2021 ALAFEN (GENVOYA) mouth daily for 90 [phone] mg days. tabletIndications: HIV infection posaconazole (NOXAFIL) Take 3 Tablets by Reorder 11/27/2021 12/11/2021 100 mg delayed release mouth every 24 tablet hours. BEST TAKEN WITH A FATTY MEAL documented as of this encounter Additional Health Concerns Infection Onset Date Last Indicated Resolved Time MRSAComment: Hx of VGLL-Ovaj-84/23/2020 08/29/2021 08/29/20 21 C. Stoner 12/31/21 documented as of this encounter Care Teams Sister Superior Relationship Specialty Start Date End Date Gil-Marcy Santos, PCP - General Family Medicine - Primary 1 11/13/18 EMPLOYEE BENEFITS SPECIALIST Care [address] [place] [address] 2 [place] [phone] documented as of this encounter
--- OUTSIDE RECORDS SUMMARY | 2022-03-13 20:33 | XMS_ITS | Encounter Summary ---
:1965 Author Organization [facility] Address [address] [place] [address] Care Team Providers Name Role Phone Marcy Alvarenga COPYING MACHINE MECHANIC Primary Care Provider [phone] Reason for Visit Reason Onset Date Comments Orders (Non Pre-visit) 09/26/2021 Encounter Details Date Type Department Care Team Description 09/26/2021 Telephone [facility] - Aissatou Iraheta RN Orders (Non Pre-visit) [facility] Infectious Dise ase [address] [place] [address] [place], [place] [id number] Social History Tobacco Use Types Packs/Day Years [...] Office Visit Infectious Disease Lilian Rushing MD [address] [place] [address] [address] [place], [place] [phone] (Wo rk) documented as of this encounter Visit Diagnoses Not on filedocumented in this encounter Additional Health Concerns Infection Onset Date Last Indicated Resolved Time MRSAComment: Hx of CCYT-Njpp-00/23/2020 08/29/2021 08/29/20 21 C. Stoner 12/31/21 documented as of this encounter Care Teams Manager Gift Relationship Specialty Start Date End Date Gil-Marcy Santos, PCP - General Family Medicine - Primary 1 11/13/18 COPYING MACHINE MECHANIC Care [address] [place] [address] [address] [place] [address] documented as of this encounter
--- OUTSIDE RECORDS SUMMARY | 2022-03-13 20:33 | XMS_ITS | Encounter Summary ---
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 Requesting eval for surgical debridement.. Dr. Rainey recommended by Ortho at [facility]. Reason for Visit Reason Onset Date Comments Medication Management 01/16/2022 Encounter Details Date Type Department Care Team Description 01/16/2022 Telephone [facility] - Jennie Rushing MD Medication Management [facility] Infectious Dise ase [address], [address] [place], [place] [phone] [place] [phone] (Wo rk) Social History Tobacco Use Types [...] a message back from Dr. Easton at [facility] who saw Poli for Ortho. He recommended seeing Dr. Rainey at [facility]. I'll put in a referral. Can we let Poli know? Telephone Encounter - Aissatou Iraheta, RN - 01/16/2022 1602 EDT Read the below note to patient. Her verbalized understanding. No further questions. Telephone Encounter - Lilian Rushing MD - 01/16/2022 3675 EDT Received call from Dr. Dixon. Returned his call today - He recommend that I get in touch with Dr. Jonnie Guevara at [facility]. He is a spine surgeon but knows about bones and Cocci as he used to work in [place] and has collaborated with Dr. Dixon on other cases. He may know of an orthopedic surgeon in the area that would be willing to take on Poli's case. There is also the medication previously mentioned, olorofim, that is available at [facility] or the [facility]. Currently undergoing trials for treatment failures, which Poli would be qualified for most likely. Dr. 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 I'll start by contacting Dr. Guevara to see if there's an orthopedic surgeon in the area that couldsee Poli or if he should go to [facility]. [email or web address] documented in this encounter Plan of Treatment Upcoming Encounters Date Type Specialty Care Team Description 04/14/2022 Office Visit Infectious Disease Lilian Rushing MD [address] [place] [address], [address] [place] [address] (Wo rk) Scheduled Referrals [...] Last Indicated Resolved Time MRSAComment: Hx of KZNM-Rkuk-29/23/2020 08/29/2021 08/29/20 21 C. Stoner 12/31/21 documented as of this encounter Care Teams Manager Mission Relationship Specialty Start Date End Date Gil-Marcy Santos, PCP - General Family Medicine - Primary 1 11/13/18 FLIGHT CREW TIME CLERK Care [address] [place] [phone] documented as of this encounter
--- OUTSIDE RECORDS SUMMARY | 2022-03-13 20:33 | XMS_ITS | Encounter Summary ---
:1965 Author Organization [facility] Address [address] [place] [address] Care Team Providers Name Role Phone Marcy Alvarenga APPRENTICE CARPENTER Primary Care Provider [phone] Reason for Visit Reason Onset Date Comments Patient Information Update 02/26/2022 [facility] TCM Encounter Details Date Type Department Care Team Description 02/26/2022 Telephone [facility] - [place], Patient Information [facility] Family Medicine - Marcy Ruiz, APPRENTICE CARPENTER Update ([facility] TCM) [address], [facility] [address] [place] [address] [place], [place] [phone] (Wo rk) Social History Tobacco Use [...] La Harper, RN - 03/05/2022 0948 EDT [facility] TCM Note Reviewed discharge paperwork/notes from [facility] Ha was admitted 02/18/22 and discharged on 02/21/22 with HH services to [facility] Dx: SAGAR, septic arthritis of Left knee Hx: fungal infection of Left knee, HIV infection, MRSA positive Was discharged home with PICC line. To continue IV anbx until 03/18/22 - amphotericin 300mg IV daily Due for CBC and CMP on 03/10/22 Has f/u scheduled already with Dr. Rainey at [facility] Ortho on 03/31/[address] Kristan ECHEVERRIA elephone Encounter - Adriana Peña - 02/26/2022 1307 EDT Admit Date: 02/18/22 Discharge Date: 02/21/22 Facility: [facility] Discharge Location: home with services through [facility] Diagnosis:SAGAR; septic arthritis of knee, left * [facility] TCM scanned to pt docs. documented in this encounter Plan of Treatment Upcoming Encounters Date Type Specialty Care Team Description 04/14/2022 Office Visit Infectious Disease Lilian Rushing MD [address] [place] [address], [address] [place], [place] [phone] (Wo rk) documented as of this encounter Visit Diagnoses Not on filedocumented in this encounter Additional Health Concerns Infection Onset Date Last Indicated Resolved Time MRSAComment: Hx of QTSM-Meun-39/23/2020 08/29/2021 08/29/20 21 C. Stoner 12/31/21 documented as of this encounter Care Teams Electrician Supervisor Relationship Specialty Start Date End Date Gil-Marcy Santos, PCP - General Family Medicine - Primary 1 11/13/18 APPRENTICE CARPENTER Care [address] [place] [phone] documented as of this encounter
--- OUTSIDE RECORDS SUMMARY | 2022-03-13 20:33 | XMS_ITS | Encounter Summary ---
:1965 Author Organization [facility] Address [address] [place] [address] Care Team Providers Name Role Phone Marcy Alvarenga CHIP TUNER Primary Care Provider [phone] Encounter Details Date Type Department Care Team Description 09/05/2021 Orders Only [facility] Anabel Tejeda [address] [place] [address] Social History Tobacco Use Types [...] Rushing MD [address], [address] [place] [address] (Wo rk) documented as of this encounter Visit Diagnoses Not on filedocumented in this encounter Additional Health Concerns Infection Onset Date Last Indicated Resolved Time MRSAComment: Hx of NZUC-Fkhf-85/23/2020 08/29/2021 08/29/20 21 C. Stoner 12/31/21 documented as of this encounter Care Teams Wheelage Clerk Relationship Specialty Start Date End Date Marcy Alvarenga, PCP - General Family Medicine - Primary 1 11/13/18 CHIP TUNER Care [address] [place] [phone] documented as of this encounter
--- OUTSIDE RECORDS SUMMARY | 2022-03-13 20:33 | XMS_ITS | Encounter Summary ---
:[address] [facility] Address [address] [place] [address] Care Team Providers Name Role Phone Marcy Alvarenga DIRECTOR OF PRIMARY CARE Primary Care Provider [phone] Reason for Visit Reason Comments Headache Headache and nausea/vomiting started last night, has not stopped. Has taken ibuprofen to minimal e ffect. Nausea Pt actively vomiting in tria ge, brought to room. Encounter Details Date Type Department Care Team Description 12/30/2021 Emergency [facility] - Crys Orellana DO [address] [place] [address] Acute nonintractable [facility] Emergency Faustino Shi MD [address] [place] [phone] headache, unspecified Department headache type (Primary [address]x) [place], [place] [id number] Social History Tobacco Use Types Packs/Day Years [...] nael applied 0 % swab topically PRN whkpdzi-mdy-jjzom-tenof Take 1 Tablet by 90 Tablet 3 2021 ALAFEN (GENVOYA) mouth daily for 90 [phone] mg days. tabletIndications: HIV infection lisinopriL (PRINIVIL) [...] Departure Means Destination Comments Home or Self Custodial Pt aler wi th no complaints at tme of d/c home. le ft with mother belongings with pt. pain free at time of d/c. documented in this encounter ED Notes Poonam Holland RN - 12/30/20212256 EST Report to LAUREN Cochran Poonam Colbert RN - 12/30/20212199 EST Resting quietly with [...] incurred after he fell while hiking in [place]. He washed an abrasion out with some [...] nerves II through XII are intact bilaterally. Wrxlju-vbbx-lxpcfk was normal. Normal gross strength in all [...] damage Alternatives discussed: Alternative treatment and observation Gardner protocol: Procedure explained and questions answered to [...] Visit Infectious Disease Lilian Rushing MD [address] [facility], [address] [place] [phone] (Wo rk) documented as [...] OR CLINIC PERFORMED (12/30/2021 21:31 EST) Narrative [facility] EKG - 12/30/2021 21:3 1 EST Faustino Shi MD ? 12/30/2021 23:08 Lumbar Puncture Date/Time: 12/30/2021 21:31 Performed by: Faustino Shi MD Authorized by: Faustino Shi MD Consent: ??Consent obtained: ??Verbal ??Consent given by: ??Patient ??Risks discussed: ??Bleeding, infectio n, pain, headache and nerve damage ??Alternatives discussed: ??Alternative treatment and observation Gardner protocol: ??Procedure explained and questions ans wered [...] Organization Address City/State/ZIP Code Phon e Number [facility] EKG CELL COUNT, CSF (12/30/2021 21:23 EST) RBC, CSF 0Comment: None /[facility] Nucleated Cells, 0Comment: None 0 - 5 /cmm [facility] CSF Seen [facility] Total Volume CSF 3.5 ml [facility] Tube Cntd. 4 [facility] Comment, CSF Clear and [facility] colorless [facility] Tube Vol. 1.0 ml [facility] Specimen Fluid - Cerebrospinal fluid sample (spec imen) Performing Organization Address [facility] Phon e Number [facility] [address] [place] [address] (ABNORMAL) TOTAL PROTEIN, CSF (12/30/2021 21:23 EST) Pathologist Sig nature Total Protein, CSF 47 (H) 12 - 45 mg/dL [facility] Specimen Fluid - Cerebrospinal fluid sample (spec imen) Performing Organization Address [facility] Phon e Number [facility] [address] [place] [phone] GLUCOSE CSF (12/30/2021 21:23 EST) Glucose, CSF 59 40 - 70 mg/dL [facility] Comment: [facility] NOTE: Reference range for Glucose in CSF: 60% - 80% of the S lucy/Plasma Glucose Specimen Fluid - Cerebrospinal fluid sample (spec imen) Performing Organization Address [facility] Phon e Number [facility] [address] [place] [address] BACTERIAL CULTURE/SMEAR (12/30/2021 21:23 EST) Pathologist Sig nature Organism ID No Growth [facility] Smear No Neutrophils [facility] SeenComment: Cytospin [facility] gram stain interpreted. Smear No bacteria seen [facility] Specimen Fluid - Cerebrospinal fluid sample (spec imen) Performing Organization Address [facility] Phon e Number [facility] [address] [place] [address] CT HEAD WO CONTRAST (12/30/2021 20:45 EST) Anatomical Region Laterality Modality Head Computed Tomography Specimen Impressions [facility] - 12/30/2021 21:13 EST No hydrocephalus, acute intracranial hemorrhage, or mass effect. THIS DOCUMENT HAS BEEN ELECTRONICALLY SI GNED BY ANDREW CHRIS MD FOR ANY QUESTIONS OR CONCERNS REGARDING THIS REPORT PLEASE CALL [facility] AT [phone] Narrative [facility] - 12/30/2021 21:13 [...] REGARDING THIS REPORT PLEASE CALL [facility] AT [phone] Performing Organization Address City/State/ZIP Code Phon e Number [facility] EKG 12-LEAD (12/30/2021 19:42 EST) Specimen Narrative [facility] - 8:43 EST ? [facility] ? Test Date: ?2021-12-30 Pat Name: ? HA SORIA ?Department: ? Room: ? C03 Gender: ? Male ? Dinkey Engine Firer/Fireman: ?? LR : ?1965 ? Requested By: HEDY Eisenberg Order Number: [id number] ? Abdi FERNANDEZ: ?? IDALIA SANTOS MD ? Measurements Intervals ?[place] ? Rate: ? 61 ? P: ?78 [place]: ? 142 ?QRS: ?61 QRSD: ? 90 [...] Procedure Note Idalia Santos MD - 12/31/2021 [facility] Test Date: 2021-12-30 Pat Name: HA SORIA Department: Room: C03 Gender: Male Dinkey Engine Firer/Fireman: FABIANO : 1965 Requested By: HEDY Eisenberg Order Number: [id number] Reading MD: Shabbir SANTOS MD Measurements Intervals [place] Rate: 61 P: 78 [place]: 142 QRS: 61 QRSD: 90 T: 62 [...] Organization Address City/State/ZIP Code Phon e Number [facility] (ABNORMAL) C REACTIVE PROTEIN (12/30/2021 19:38 EST) Pathologist Sig nature C-Reactive Protein 10.0 (H) <10.0 mg/L [facility] Specimen Blood - Venous blood (substance) Performing Organization Address City/State/ZIP Code Phon e Number [facility] [address] [place] [address] (ABNORMAL) COMPLETE BLOOD COUNT AND DIFFERENTIAL (12/30/2021 19:38 EST) Pathologist Sig [facility] WBC 7.17 4.00 - 10.40 [facility] RBC 5.28 4.36 - 5.78 [facility] Hemoglobin 15.0 13.8 - 17.3 [facility] gm/dL [facility] HCT 43.4 39.5 - 50.2 % [facility] MCV 82 81 - 95 fl [facility] MCH 28.4 27.6 - 33.0 pg [facility] MCHC 34.6 32.8 - 36.4 [facility] gm/dL [facility] RDW-CV 13.7 <14.2 % [facility] RDW-SD 41.0 <46.0 fl [facility] PLT 372 141 - 377 K/cmm [facility] MPV 8.7 (L) 9.5 - 12.7 fl [facility] Neutrophils 68.0 % [facility] Lymphocytes 19.9 % [facility] Monocytes 9.9 % [facility] Eosinophils 1.1 % [facility] Basophils 0.4 % [facility] Immature Grans 0.7 % [facility] Absolute Neutrophils 4.87 2.20 - 8.85 [facility] Absolute Lymphocytes 1.43 1.09 - 3.30 [facility] Absolute Monocytes 0.71 0.10 - 0.80 [facility] Absolute Eosinophils 0.08 0.03 - 0.61 [facility] K/cmm [facility] Absolute Basophils 0.03 0.01 - 0.11 [facility] K/cmm [facility] Absolute Immature 0.05 0.00 - 0.06 [facility] Grans K/cm [facility] Type of Differential: Auto [facility] Specimen Blood - Venous blood (substance) Performing Organization Address [facility]/ZIP Code Phon e Number [facility] [address] [place] [address] (ABNORMAL) COMPREHENSIVE METABOLIC PANEL (CMP) (12/30/2021 19:38 EST) Pathologist [facility] Sodium 139 136 - 145 [facility] mmol/L [facility] Potassium 3.6 3.5 - 5.0 [facility] mmol/L [facility] Chloride 98 96 - 110 mmol/L [facility] CO2 Total 32 22 - 32 mmol/L [facility] Glucose 126 (H) 70 - 100 mg/dL [facility] BUN 14 10 - 26 mg/dL [facility] Creatinine 0.82 0.66 - 1.25 [facility] mg/dL [facility] eGFR 100 >60 [facility] mL/min/1.73m2 [facility] Total Protein 7.9 6.3 - 8.2 g/dL [facility] Albumin 4.3 3.4 - 4.9 g/dL [facility] Alkaline Phosphatase 102 38 - 126 U/L [facility] AST 25 15 - 46 U/L [facility] ALT 19 <50 U/L [facility] Bilirubin, Total 0.5 <1.4 mg/dL [facility] Calcium 9.5 8.5 - 10.5 [facility] mg/dL [facility] Albumin/Globulin Ratio 1.2 1.0 - 2.5 [facility] Anion Gap 9 5 - 14 [facility] Specimen Blood - Venous blood (substance) Performing Organization Address City/[facility]/ZIP Code Phon e Number [facility] [address] [place] [phone] documented in this encounter Visit Diagnoses Diagnosis [...] Scheduled Medication Order 12/28/2021 12/29/2021 12/30/2021 acetaminophen ([facility]) IV solution 1,000 mg (COMPLETED) 2024 (Given [...] Last Indicated Resolved Time MRSAComment: Hx of ZROD-Ekdi-36/23/2020 08/29/2021 08/29/20 21 C. Stoner 12/31/21 documented as of this encounter Care Teams Fish Skinning Machine Feeder Relationship Specialty Start Date End Date Gil-Marcy Santos, PCP - General Family Medicine - Primary 1 11/13/18 DIRECTOR OF PRIMARY CARE Care [address] [place] [phone] documented as of this encounter
--- OUTSIDE RECORDS SUMMARY | 2022-03-13 20:33 | XMS_ITS | Encounter Summary ---
:1965 Author Organization [facility] Address [address] [place] [address] Care Team Providers Name Role Phone Marcy Alvarenga HOSPICE EXECUTIVE DIRECTOR Primary Care Provider [phone] Encounter Details Date Type Department Care Team Description 03/12/2022 [facility]cribe [facility] INFUSION [address] [facility] [address] [place], [place] [address] FLOOR [address] [place], [place] [id number] [phone] Social History Tobacco Use Types Packs/Day Years [...] Visit Infectious Disease Lilian Rushing MD [address] [place] [address] [address] [place] [phone] (Wo rk) documented as of this encounter Visit Diagnoses Not on filedocumented in this encounter Additional Health Concerns Infection Onset Date Last Indicated Resolved Time MRSAComment: Hx of BIVG-Ebln-53/23/2020 08/29/2021 08/29/20 21 C. Stoner 12/31/21 documented as of this encounter Care Teams Hospital Aide Relationship Specialty Start Date End Date Gil-Marcy Santos, PCP - General Family Medicine - Primary 1 11/13/18 HOSPICE EXECUTIVE DIRECTOR Care [address] [place] [address] [address] [place] [phone] documented as of this encounter
--- OUTSIDE RECORDS SUMMARY | 2022-03-13 20:33 | XMS_ITS | Encounter Summary ---
:1965 Author Organization [facility] Address [address] [place] [address] Care Team Providers Name Role Phone Marcy Alvarenga FULL SERVICE VENDING DRIVER Primary Care Provider [phone] Reason for Visit Reason Onset Date Comments Medications Refill 11/06/2021 Encounter Details Date Type Department Care Team Description 11/06/2021 Refill [facility] Geoff Alvarenga Medications Refill Family Medicine - Be nicol Ruiz, FULL SERVICE VENDING DRIVER [address] [facility] [address] [place] [address] [place] [address] [facility] (Wo rk) Social History Tobacco Use Types [...] Syl Winchester LPN - 11/07/2021 0805 EST [facility] MEDICATION REFILL Medication: tamsulosin Medication, dose, directions [...] Visit Infectious Disease Lilian Rushing MD [address] [facility], [address] [place] [address] (Wo rk) documented as of this encounter Visit Diagnoses Not on filedocumented in this encounter Discontinued Medications Medication Sig Discontinue Reason Start Date End Date TAMSulosin (FLOMAX) 0.4 TAKE 1 CAPSULE BY Reorder 05/01/2021 11/07/2021 mg capsule MOUTH ONCE DAILY documented as of this encounter Additional Health Concerns Infection Onset Date Last Indicated Resolved Time MRSAComment: Hx of TFAA-Zlry-15/23/2020 08/29/2021 08/29/20 21 C. Stoner 12/31/21 documented as of this encounter Care Teams Soil Technologist Relationship Specialty Start Date End Date Marcy Alvarenga, PCP - General Family Medicine - Primary 1 11/13/18 FULL SERVICE VENDING DRIVER Care [address] [place] [address] [address] [place] [phone] documented as of this encounter
--- OUTSIDE RECORDS SUMMARY | 2022-03-13 20:33 | XMS_ITS | Encounter Summary ---
:1965 Author Organization [facility] Address [address] [place] [address] Care Team Providers Name Role Phone Marcy Alvarenga COLLISION MECHANIC Primary Care Provider [phone] Reason for Visit Reason Onset Date Comments Pre-visit Planning 12/23/2021 Encounter Details Date Type Department Care Team Description 12/23/2021 Telephone [facility] Aissatou Iraheta RN Pre-visit Planning Infectious Disease [address] [place] [address] [place] [address] [phone] Social History Tobacco Use Types Packs/Day Years [...] Visit Infectious Disease Lilian Rushing MD [address] [facility], [address] [place] [address] (Wo rk) Scheduled Orders Name Type Priority Associated Diagnoses Order S chedule SYPHILIS RPR SCREEN Lab Routine Screening for viral O rdered: 12/25/2021 W/REFLEX disease High risk homosexual behavior documented as of this encounter Results UA WITH REFLEX SEDIMENT (CULTURE IF POS) (01/07/2022 10:35 EDT) Color UA Yellow Colorless to Dark [facility] Yellow [facility] Clarity UA Clear Clear [facility] Glucose UA Negative Negative [facility] Bilirubin UA Negative Negative [facility] Ketones UA Negative Negative [facility] Specific [place], 1.020 1.001 - 1.035 [facility] Urine [facility] Blood UA Negative Negative [facility] pH, UA 6.5 4.6 - 8.0 [facility] Protein UA Negative Negative [facility] Urobilinogen UA 0.2 0.2 , 1.0, Normal [facility] mg/dL [facility] Nitrite UA Negative Negative [facility] Leukocyte Esterase UA Negative Negative [facility] Specimen Urine - Urine specimen collection, clean catch (procedure) Performing Organization Address City/State/ZIP Code Phon e Number [facility] [address] [place] [address] MISCELLANEOUS TEST, NORMA (01/07/2022 9:24 EDT) Pathologist [facility] Miscellaneous Test, SEE NOTE [facility] Comment: LABORATORIES Test ? Result ?Flag ??Unit ?? RefValue Posaconazole, S ?2310 ?ng/mL ??>700 ? ADDITIONAL INFORMATION------- ?This test was developed and its performance jimmie [employer] ?determined by [facility] in a manner consistent with CLIA ?requirements. This test has not been cleared or approved by ?the U.S. Food and Drug Administration. ?Test Performed by: ?[facility] [address] vargas ?[address] [place] [address] ?Peanut Grader: Pritesh Mcgee M.D. Ph.D.; CLIA # [id number] Specimen Blood - Venous blood (substance) Performing Organization Address City/State/ZIP Code Phon e Number [facility] [address] [place] [address] (ABNORMAL) COMPREHENSIVE METABOLIC PANEL (CMP) (01/07/2022 9:24 EDT) Pathologist [facility] Sodium 138 136 - 145 [facility] mmol/L [facility] Potassium 4.2 3.5 - 5.0 [facility] mmol/L [facility] Chloride 99 96 - 110 mmol/L [facility] CO2 Total 29 22 - 32 mmol/L [facility] Glucose 113 (H) 70 - 100 mg/dL [facility] BUN 17 10 - 26 mg/dL [facility] Creatinine 0.90 0.66 - 1.25 [facility] mg/dL [facility] eGFR 96 >60 [facility] mL/min/1.73m2 [facility] Total Protein 6.8 6.3 - 8.2 g/dL [facility] Albumin 3.8 3.4 - 4.9 g/dL [facility] Alkaline Phosphatase 90 38 - 126 U/L [facility] AST 23 15 - 46 U/L [facility] ALT 18 <50 U/L [facility] Bilirubin, Total 0.3 <1.4 mg/dL [facility] Calcium 8.7 8.5 - 10.5 [facility] mg/dL [facility] Albumin/Globulin Ratio 1.3 1.0 - 2.5 [facility] Anion Gap 10 5 - 14 [facility] Specimen Blood - Venous blood (substance) Performing Organization Address City/State/ZIP Code Phon e Number [facility] [address] [place] [address] HIV 1 RNA QUANTITATION (01/07/2022 9:24 EDT) HIV RNA Detection, Undetected Undetected [facility] Qual copies/mL LABORATORY SERVICES Specimen Blood - Venous blood (substance) Narrative [facility] - 01/09/2022 14:05 EDT New platform in use 05/20/2021 The quantification range of this assay i s 20 IU/mL to 10,000,000 IU/mL. ??Testing was performed using the Areli HIV test ([employer] with the areli 6800 System. Performing Organization Address City/[facility]/ZIP Code Phon e Number [facility] [address] [place] [address] SERVICES T CELL SUBSETS (01/07/2022 9:24 EDT) Pathologist Sig nature % CD3 72 56 - 84 % [facility]OR[facility]ORY SERVICES % CD4 32 31 - 64 % [facility]OR[facility]ORY SERVICES % CD8 36 9 - 39 % [facility] SERVICES Absolute CD3 1,086 840-2,669 Cells/uL [facility] SERVICES Absolute CD4 493 488-1,734 Cells/uL [facility] SERVICES Absolute CD8 547 154-1,097 Cells/uL [facility] SERVICES 01/31 Ratio 0.90 >=0.90 [facility] Specimen Blood - Venous blood (substance) Performing Organization Address City/State/ZIP Code Phon e Number [facility] [address] [place] [address] SERVICES documented in this encounter Visit Diagnoses [...] Last Indicated Resolved Time MRSAComment: Hx of MGDO-Aree-81/23/2020 08/29/2021 08/29/20 21 C. Stoner 12/31/21 documented as of this encounter Care Teams Livestock Haulier Relationship Specialty Start Date End Date [place]-Marcy Santos, PCP - General Family Medicine - Primary 1 11/13/18 COLLISION MECHANIC Care [address] [place] [phone] documented as of this encounter
--- OUTSIDE RECORDS SUMMARY | 2022-03-13 20:33 | XMS_ITS | Encounter Summary ---
:[address] [facility] Address [address] [place] [address] Care Team Providers Name Role Phone Marcy Alvarenga MANAGER FLORAL Primary Care Provider [phone] Reason for Visit Reason Onset Date Comments Prior Auth, Medication 09/09/2021 Encounter Details Date Type Department Care Team Description 09/09/2021 Telephone [facility] - Aissatou Iraheta RN Prior Auth, Medication [facility] Infectious Dise ase [address] [place] [address] [place], [place] [id number] Social History Tobacco Use Types Packs/Day Years [...] been approved. Left message for [facility] ele[facility] Encounter - Aissatou Iraheta RN - 09/09/2021 1657 EST PA for Posaconazole 100mg Submitted via cover [employer] meds. documented in this encounter Plan of Treatment Upcoming Encounters Date Type Specialty Care Team Description 04/14/2022 Office Visit Infectious Disease Lilian Rushing MD [address] [place] [address] [address] [place], [place] [phone] (Wo rk) documented as of this encounter Visit Diagnoses Not on filedocumented in this encounter Additional Health Concerns Infection Onset Date Last Indicated Resolved Time MRSAComment: Hx of XDIJ-Bftf-16/23/2020 08/29/2021 08/29/20 21 C. Stoner 12/31/21 documented as of this encounter Care Teams Director Targeted Marketing Relationship Specialty Start Date End Date [place]-Marcy Santos, PCP - General Family Medicine - Primary 1 11/13/18 MANAGER FLORAL Care [address] [place] [address] 2 [place] [phone] documented as of this encounter
--- OUTSIDE RECORDS SUMMARY | 2022-03-13 20:33 | XMS_ITS | Encounter Summary ---
:1965 Author Organization [facility] Address [address] [place] [address] Care Team Providers Name Role Phone Marcy Alvarenga BUS DRIVER/MONITOR Primary Care Provider [phone] Reason for Visit Reason Onset Date Comments Medications Refill 02/07/2022 Encounter Details Date Type Department Care Team Description 02/07/2022 Telephone [facility] Lilian Rushing MD Medications Refill Infectious Disease [address] [facility] [address] [facility] [place], [place] [address] [place] [address] [phone] (Wo rk) Social History Tobacco Use [...] Aissatou Iraheta RN - 02/07/2022 1421 EDT [facility] will run rx for a 30 day supply. PA only covers 30 days at a time. New rx was sent. Telephone Encounter - Peace Hunter MA - 02/07/2022 1255 EDT Patient called to request refill for posaconazole to be sent to [facility] in [facility]. Thanks. documented in this encounter Plan of Treatment Upcoming Encounters Date Type Specialty Care Team Description 04/14/2022 Office Visit Infectious Disease Lilian Rushing MD [address] [place] [address] 1 [place] [address] (Wo rk) documented as [...] Last Indicated Resolved Time MRSAComment: Hx of QOSB-Cdfx-64/23/2020 08/29/2021 08/29/20 21 C. Stoner 12/31/21 documented as of this encounter Care Teams Data Processing Systems Consultant Relationship Specialty Start Date End Date [place]-Marcy Santos, PCP - General Family Medicine - Primary 1 11/13/18 BUS DRIVER/MONITOR Care [address] [phone] documented as of this encounter
--- OUTSIDE RECORDS SUMMARY | 2022-03-13 20:33 | XMS_ITS | Encounter Summary ---
:1965 Author Organization [facility] Address [address] [place] [address] Care Team Providers Name Role Phone Marcy Alvarenga PODIATRIC FOOT AND ANKLE SPECIALIST Primary Care Provider [phone] Reason for Visit Episode Based Medications (Routine) - Authorization Not Required Specialty Diagnoses / Procedures Referred By Contact Refer red To Contact Diagnoses History of coccidioidomycosis Adeel Hensley [facility] Infusion Room [address] [place] [address] [address] [place] [address] Phone: Fax: Referral ID Status Reason Start Expiration Visits Visits Date Date Requested Authorized [id number] Authorization Not 03/12/2022 11 11 Required Encounter Details Date Type Department Care Team Description 03/12/2022 Hospital Encounter [facility]OM [address] [facility] [address] [place] [address] Social History Tobacco Use Types Packs/Day Years [...] documented as of this encounter Progress Notes Ilsa Yu, LAUREN - 03/12/2022 1615 EDT Pt in room. picc line has good blood return noted. Flushes with ease. Flushed with 20 ml of normal saline. Сергей MorelandN documented in this encounter Plan of Treatment Upcoming Encounters Date Type Specialty Care Team Description 04/14/2022 Office Visit Infectious Disease Lilian Rushing MD [address] [facility] [address] [place] [address] (Wo rk) documented as of this encounter Visit Diagnoses Not on filedocumented in this encounter Additional Health Concerns Infection Onset Date Last Indicated Resolved Time MRSAComment: Hx of KHVH-Wrsi-30/23/2020 08/29/2021 08/29/20 21 C. Stoner 12/31/21 documented as of this encounter Care Teams Tree And Shrub Technician Relationship Specialty Start Date End Date Gil-Marcy Santos, PCP - General Family Medicine - Primary 1 11/13/18 PODIATRIC FOOT AND ANKLE SPECIALIST Care [address] [place] [address] 2 [place] [address] documented as of this encounter
--- OUTSIDE RECORDS SUMMARY | 2022-03-13 20:33 | XMS_ITS | Encounter Summary ---
:1965 Author Organization [facility] Address [address] [place] [address] Care Team Providers Name Role Phone Marcy Alvarenga PUMPER BREWERY Primary Care Provider [phone] Reason for Visit Reason Onset Date Comments Orders (Non Pre-visit) 09/18/2021 Encounter Details Date Type Department Care Team Description 09/18/2021 Telephone [facility] - Aissatou Iraheta RN Orders (Non Pre-visit) [facility] Infectious Dise ase [address] [place] [address] [place], [place] [id number] Social History Tobacco Use Types Packs/Day Years [...] Telephone Encounter - Aissatou Iraheta RN - 09/18/2021 1026 EST Detailed message left for pt. Reminder set to check for results in 1 week. elephone Encounter - Aissatou Iraheta RN - 09/18/2021 0949 EST ----- Message from Lilian Rushing MD sent at 09/04/2021 14:06 EST ----- Needs Posaconazole level. Aiming for >1.0 documented in this encounter Plan of Treatment Upcoming Encounters Date Type Specialty Care Team Description 04/14/2022 Office Visit Infectious Disease Lilian Rushing MD [address] [place] [address], [address] [place] [address] (Wo rk) documented as of this encounter Results MISCELLANEOUS TEST, NORMA (10/07/2021 14:01 EST) Miscellaneous Test, SEE NOTE [facility] Comment: LABORATORIES Test ? Result ?Flag ??Unit ?? RefValue Posaconazole, S ?1420 ?ng/mL ??>700 ? ADDITIONAL INFORMATION------- ?This test was developed and its performance jimmie [employer] ?determined by [facility] in a manner consistent with CLIA ?requirements. This test has not been cleared or approved by ?the U.S. Food and Drug Administration. ?Test Performed by: ?[facility] [address] vargas ?[address] [place] [address] ?Rail Engineer: Pritesh Mcgee M.D. Ph.D.; CLIA # [id number] Specimen Blood - Venous blood (substance) Performing Organization Address City/State/ZIP Code Phon e Number [facility] [address] [place] [address] documented in this encounter Visit Diagnoses Diagnosis Coccidioidomycosis - Primary Coccidioidomycosis, unspecified Medication monitoring encounter Encounter for therapeutic drug monitorin g documented in this encounter Additional Health Concerns Infection Onset Date Last Indicated Resolved Time MRSAComment: Hx of XRDN-Ngkr-39/23/2020 08/29/2021 08/29/20 21 C. Stoner 12/31/21 documented as of this encounter Care Teams Lawn Mower Mechanic Relationship Specialty Start Date End Date Gil-Marcy Santos, PCP - General Family Medicine - Primary 1 11/13/18 PUMPER BREWERY Care [address] [place] [phone] documented as of this encounter
--- OUTSIDE RECORDS SUMMARY | 2022-03-13 20:33 | XMS_ITS | Encounter Summary ---
:1965 Author Organization [facility] Address [address] [place] [address] Care Team Providers Name Role Phone Marcy Alvarenga AMBULATORY SERVICES REPRESENTATIVE Primary Care Provider [phone] Reason for Visit Reason Comments New Patient Visit HIV. Patient states no quest ions or concerns Encounter Details Date Type Department Care Team Description 01/09/2022 Office Visit [facility] - Lilian Rushing Asy mptomatic HIV infection (HCC) (Primary Dx); [facility] Infectious MD Coccidioidomycosis; Disease [address] Other chronic osteomyelitis of left tibi a (HCC); [address] [place] [address] [place] [phone] Social History Tobacco Use Types Packs/Day [...] followed up with Dr. Jacobs from the [facility] [place]. See07/03/21 note for details of that conversation. [...] in clinic today. Lilian Rushing MD, MPH [facility] Infectious Disease Office: [phone] I spent a total of 65 minutes on the date of this encounter meeting with the patient and reviewing documentation/coordinating care as described in the above note. No procedures were performed at the time of the visit. documented in this encounter Plan of Treatment Upcoming Encounters Date Type Specialty Care Team Description 04/14/2022 Office Visit Infectious Disease Lilian Rushing MD [address] [place] [address] [address] [place] [address] (Wo rk) documented as [...] Last Indicated Resolved Time MRSAComment: Hx of JLHF-Vtgx-34/23/2020 08/29/2021 08/29/20 21 C. Stoner 12/31/21 documented as of this encounter Care Teams Bottoming Machine Operator Relationship Specialty Start Date End Date Marcy Alvarenga, PCP - General Family Medicine - Primary 1 11/13/18 AMBULATORY SERVICES REPRESENTATIVE Care [address] [place] [address] [address] [place] [phone] documented as of this encounter
--- OUTSIDE RECORDS SUMMARY | 2022-03-13 20:34 | XMS_ITS | Encounter Summary ---
:1965 Author Organization [facility] Address [address] [place] [address] Care Team Providers Name Role Phone Marcy Alvarenga WEB PRODUCTION DESIGNER Primary Care Provider [phone] Encounter Details Date Type Department Care Team Description 02/14/2021 Results Only Imaging [facility] - Lilian Rushing MD [facility] Radiology Resul ts [address] [facility] [address] [facility] [address] [place] [address] [place] [phone] (Wo rk) Social History Tobacco Use [...] Visit Infectious Disease Lilian Rushing MD [address] [place] [address], [address] [place], [place] [address] (Wo rk) documented as of this [...] WO CONTRAST (02/14/2021 18:37 EDT) Specimen Narrative [facility] - 02/14/2021 18:37 EDT ? EXAM: [...] CC: ? Transcribed Date/Time: 02/14/2021 (1837) ? Deck Supervisor: ? Printed Date/Time: 02/14/2021 (18 37) ? PAGE 2 ? Nelly d Report ? Procedure Note Leo Riddle MD - 02/14/2021 EXAM: MAGNETIC RESONANCE IMAGING/LUMBAR S EX. D/ (8659) CLINICAL INFORMATION: B38.9 DISSEMINATED COCCIDIOIDOMYCOSIS PROCEDURE INFORMATION: [...] MD CC: Transcribed Date/Time: 02/14/2021 (1836 ) Deck Supervisor: Printed Date/Time: 02/14/2021 (183) PAGE 2 Signed Report Performing Organization Address City/State/ZIP Code Phon e Number [facility] RADIOLOGY MR HEAD W WO CONTRAST (02/14/2021 17:48 EDT) Specimen Narrative [facility] - 02/14/2021 17:48 EDT ? EXAM: [...] CC: ? Transcribed Date/Time: 02/14/2021 (1748) ? Deck Supervisor: HIS.VRAD ? Printed Date/Time: 02/14/2021 (33 48) ? PAGE 1 ? Nelly d [...] Dot Morales MD CC: Transcribed Date/Time: 02/14/2021 (6937 ) Deck Supervisor: Printed Date/Time: 02/14/2021 (4231) PAGE 1 Signed Report Performing Organization Address City/State/ZIP Code Phon e Number [facility]Y documented in this encounter Visit Diagnoses Not on filedocumented in this encounter Additional Health Concerns Infection Onset Date Last Indicated Resolved Time MRSAComment: Hx of KKLU-Selc-18/23/2020 08/29/2021 08/29/20 21 C. Stoner 12/31/21 documented as of this encounter Care Teams Video Manager Relationship Specialty Start Date End Date Marcy Alvarenga, PCP - General Family Medicine - Primary 1 11/13/18 WEB PRODUCTION DESIGNER Care [address] [place] [phone] documented as of this encounter
--- OUTSIDE RECORDS SUMMARY | 2022-03-13 20:34 | XMS_ITS | Encounter Summary ---
:1965 Author Organization [facility] Address [address] [place] [address] Care Team Providers Name Role Phone Marcy Alvarenga ENTRY PROCESSOR Primary Care Provider [phone] Encounter Details Date Type Department Care Team Description 06/26/2021 Abstract [facility] C[facility] Panel Coord inator, Family Medicine - Be in [facility] [place] Adult [address] [place] [address] Social History Tobacco Use Types [...] Office Visit Infectious Disease Lilian Rushing MD [address] [place], [place] [address], [address] [place] [address] (Wo rk) documented as of this encounter Procedures Procedure Name Priority Date/Time Associated Diagnosis Comme nts COLONOSCOPY PROCEDURE Routine 06/18/2021 Result s for this procedure are i n the results section . documented in this encounter Results COLONOSCOPY PROCEDURE (06/18/2021) Pathologist Sig nature Colonoscopy Colonoscopy, External Comment: Unprepped patient, sigmoid diverticulosis, recommend three day prep documented in this encounter Visit Diagnoses Not on filedocumented in this encounter Care Teams Joint Machine Operator Relationship Specialty Start Date End Date Gil-Marcy Santos, PCP - General Family Medicine - Primary 1 11/13/18 ENTRY PROCESSOR Care [address] [place] [address] [address] [place] [phone] documented as of this encounter
--- OUTSIDE RECORDS SUMMARY | 2022-03-13 20:34 | XMS_ITS | Encounter Summary ---
:1965 Author Organization [facility] Address [address] [place] [address] Care Team Providers Name Role Phone Marcy Alvarenga MAP DRAFTER Primary Care Provider [phone] Encounter Details Date Type Department Care Team Description 12/20/2020 Results Only [facility] Geoff Alvarenga Family Medicine - Be nicol Ruiz, MAP DRAFTER [address] [facility] [address] [place] [address] [place] [phone] (Wo rk) Social History [...] Infectious Disease Lilian Rushing MD [address] [facility], [address] [place], [place] [address] (Wo rk) documented as of this [...] 13:15 EST) Pathologist Sig nature FTA-ABS - [facility] SEE NOTE [facility] Comment: CENTER LAB RPR SCREEN: ??REACTIVE 1:2 FTA ABS: REACTIVE [facility] [place] [place] Specimen Narrative [facility] - 021 8:15 EST AOT: 12/27/20 0938: FTABS REFLEX FOR RPR Performing Organization Address City/[facility]/ZIP Code Phon e Number [facility] [address] [place] [address] RAPID PLASMA REAGIN (RPR) WITH REFLEX, S (12/20/2020 13:15 EST) Pathologist Sig nature APID PLASMA REAGIN - Reactive NEG [facility]ENTER LAB Specimen Performing Organization Address City/[facility]/ZIP Code Phon e Number [facility] [address] [place] [address] MISCELLANEOUS TEST, WILTON (12/20/2020 13:15 EST) MISCELLANEOUS TEST - SEE BELOW () [facility] Comment: [facility] Test ? Result ?? Flag ??Unit ??RefValue ------ Misc C trach/N gonor Amplified RNA ??SOURCE: ?throat ?C. trach, Misc, Amplified ?Negative ? Negative ?RNA ADDITIONAL INFORMATION ------ This report is intended for use in clinical monitoring and management of patients. ??It is not intended for use i n medical-legal applications. This test has been modified from the nail machine operator's instructions. ??Its performance characteristics were determined by [facility] in a manner consistent with CLIA requirements. [...] This test has been modified from the nail machine operator's instructions. ??Its performance characteristics were determined by [facility] in a manner consistent with CLIA requirements. ??This test has not been cleared or appr sylvester by the U.S. Food and Drug Administration. Test Performed by: [facility] - [address] [address] Bag Worker: Pritesh Mcgee M.D. Ph.D.; CLIA# [id number] Specimen Performing Organization Address City/State/ZIP Code Phon e Number [facility] [address] [place] [address] documented in this encounter Visit Diagnoses Not on filedocumented in this encounter Care Teams Restaurant Hourly Team Member Relationship Specialty Start Date End Date Marcy Alvarenga, PCP - General Family Medicine - Primary 1 11/13/18 MAP DRAFTER Care [address] [place] [phone] documented as of this encounter
--- OUTSIDE RECORDS SUMMARY | 2022-03-13 20:34 | XMS_ITS | Encounter Summary ---
:1965 Author Organization [facility] Address [address] [place] [address] Care Team Providers Name Role Phone Marcy Alvarenga LOCKSTITCH FRONT EDGE TAPE SEWER Primary Care Provider [phone] Encounter Details Date Type Department Care Team Description 02/01/2021 Results Only [facility] - Reginaldo Laura MD Imaging [facility] Radiology Resul [address] [place], [place] [id number] [place] [address] [phone] (Wo rk) Social History Tobacco Use Types [...] Infectious Disease Lilian Rushing MD [address] [facility], [address] [place] [address] (Wo rk) documented as of this encounter Procedures Procedure Name Priority Date/Time Associated Diagnosis Comme nts KNEE W WO 02/01/2021 15:55 Results for this CONTRAST LEFT EDT procedure are in the results section. documented in this encounter Results MR KNEE W WO CONTRAST LEFT (02/01/2021 15:55 EDT) Specimen Narrative [facility] - 02/01/2021 15:55 EDT ? EXAM: [...] were directly comm unicated to Dr. Laura' or assistant, ? Lalita Guerra on 02/01/2021 at 3:46 PM . ? REPORT SIGNED IN OTHER VENDOR SYSTEM 02/01/2021 ?Reported B y: Artur Coley MD ? CC: ? Transcribed Date/Time: 02/01/2021 (6695) ? Boat Builder And Repairer: ? Printed Date/Time: 02/01/2021 (15 85) ? PAGE 2 ? Nelly d Report [...] were directly communicat ed to Dr. Laura' or assistant, Lalita Guerra on 02/01/2021 at 3:46 PM. REPORT SIGNED IN OTHER VENDOR SYSTEM 02/01/2021 Reported By: Artur Coley MD CC: Transcribed Date/Time: 02/01/2021 (7657 ) Boat Builder And Repairer: Printed Date/Time: 02/01/2021 (7339) PAGE 2 Signed Report Performing Organization Address City/State/ZIP Code Phon e Number [facility] documented in this encounter Visit Diagnoses Not on filedocumented in this encounter Additional Health Concerns Infection Onset Date Last Indicated Resolved Time MRSAComment: Hx of ANUH-Vsjt-11/23/2020 08/29/2021 08/29/20 21 C. Stoner 12/31/21 documented as of this encounter Care Teams Paving Machine Operator Relationship Specialty Start Date End Date Gil-Marcy Santos, PCP - General Family Medicine - Primary 1 11/13/18 LOCKSTITCH FRONT EDGE TAPE SEWER Care [address] [place] [address] documented as of this encounter
--- OUTSIDE RECORDS SUMMARY | 2022-03-13 20:34 | XMS_ITS | Encounter Summary ---
:1965 Author Organization [facility] Address [address] [place] [address] Care Team Providers Name Role Phone Marcy Alvarenga SCALLOP CUTTER Primary Care Provider [phone] Encounter Details Date Type Department Care Team Description 12/24/2020 Lab Requisition [facility] Outr Resulting Lab, Pathology & Laboratory Provider [facility] [address] [id number] Social History Tobacco Use Types Packs/Day Years [...] Office Visit Infectious Disease Lilian Rushing MD [address] [place] [address], [address] [place] [address] (Wo rk) documented as of this [...] 11:05 EST) Culture Referred SEE NOTE (A) [facility] for ID, Fungus Comment: LABORATORIES SOURCE: KNEE, Knee fluid CULTURE REFERRED FOR ID, FUNGUS ?FINAL ??COCCIDIOIDES POSADASII/IMMITIS ?? Critical Result. Test Performed by: [facility] - [address] [address] Agricultural Produce Sorter: Pritesh Mcgee M.D. Ph.D.; CLIA# [id number] Specimen Organism Performing Organization Address City/[facility] Code Phon e Number [facility] [address] [place] [address] (ABNORMAL) FUNGUS CULTURE/SMEAR (12/24/2020 11:05 EST) Pathologist Sig nature Organism ID Few Coccidiodes [facility] Immitis/Posadasii LABORATORY SERVICES (A)Comment: Assayed by [facility], [place], [place] Fungal Smear No Fungi Seen [facility] Specimen Fluid - Entire knee region (body structu re) Performing Organization Address City/[facility]/ZIP Code Phon e Number [facility] [address] [place] [address] SERVICES documented in this encounter Visit Diagnoses Not on filedocumented in this encounter Additional Health Concerns Infection Onset Date Last Indicated Resolved Time MRSAComment: Hx of [facility]-23/23/2020 08/29/202108/29/20 21 Jonh Payne 12/31/21 documented as of this encounter Care Teams Director Inpatient Headache Program Relationship Specialty Start Date End Date Gil-Marcy Santos, PCP - General Family Medicine - Primary 1 11/13/18 SCALLOP CUTTER Care [address] [place] [phone] documented as of this encounter
--- OUTSIDE RECORDS SUMMARY | 2022-03-13 20:34 | XMS_ITS | Encounter Summary ---
:1965 Author Organization [facility] Address [address] [place] [address] Care Team Providers Name Role Phone Marcy Alvarenga WHEEL BLOCKER Primary Care Provider [phone] Reason for Visit Reason Onset Date Comments Appointment Related 06/20/2021 Encounter Details Date Type Department Care Team Description 06/20/2021 Telephone [facility] - [facility] La Harper RN Appointment Related Family Medicine - [place] [address], [address] [place] [address] Social History Tobacco Use Types [...] Office Visit Infectious Disease Lilian Rushing MD [address] [place] [address] [address] [place] [address] (Wo rk) documented as of this encounter Visit Diagnoses Not on filedocumented in this encounter Care Teams Senior Java J2Ee Developer Relationship Specialty Start Date End Date Marcy Alvarenga, PCP - General Family Medicine - Primary 1 11/13/18 WHEEL BLOCKER Care [address] [place] [address] [address] [place] [address] documented as of this encounter
--- OUTSIDE RECORDS SUMMARY | 2022-03-13 20:34 | XMS_ITS | Encounter Summary ---
:1965 Author Organization [facility] Address [address] [place] [address] Care Team Providers Name Role Phone Marcy Alvarenga TOOL MACHINE SET UP OPERATOR Primary Care Provider [phone] Reason for Visit Reason Comments Other Encounter Details Date Type Department Care Team Description 04/23/2021 Refill [facility] - [facility] Geoff Alvarenga, Other Infectious Disease TOOL MACHINE SET UP OPERATOR [address] [place] [address] [address] [phone] (Wo rk) Social History Tobacco Use [...] Office Visit Infectious Disease Lilian Rushing MD [address] [place] [address] [address] [place] [address] (Wo rk) documented as of this encounter Visit Diagnoses Not on filedocumented in this encounter Discontinued Medications Medication Sig Discontinue Reason Start Date End Date lisinopriL (PRINIVIL) 10 Take 1 Tab by 04/18/2020 mg tabletIndications: mouth daily. hypertension documented as of this encounter Additional Health Concerns Infection Onset Date Last Indicated Resolved Time MRSAComment: Hx of HNSQ-Qtbx-80/23/2020 08/29/2021 08/29/20 21 C. Stoner 12/31/21 documented as of this encounter Care Teams Information Delivery Analyst Relationship Specialty Start Date End Date Marcy Alvarenga, PCP - General Family Medicine - Primary 1 11/13/18 TOOL MACHINE SET UP OPERATOR Care [address] [place] [address] [address] [place] [address] documented as of this encounter
--- OUTSIDE RECORDS SUMMARY | 2022-03-13 20:34 | XMS_ITS | Encounter Summary ---
:1965 Author Organization [facility] Address [address] [place] [address] Care Team Providers Name Role Phone Marcy Alvarenga WEATHERIZATION SPECIALIST Primary Care Provider [phone] Encounter Details Date Type Department Care Team [...] Visit Infectious Disease Lilian Rushing MD [address] [facility], [address] [place] [address] (Wo rk) documented as of this encounter Visit Diagnoses Not on filedocumented in this encounter Care Teams Programming Coordinator Relationship Specialty Start Date End Date Gil-Marcy Santos, PCP - General Family Medicine - Primary 1 11/13/18 WEATHERIZATION SPECIALIST Care [address] [place] [address] [address] [place] [address] documented as of this encounter
--- OUTSIDE RECORDS SUMMARY | 2022-03-13 20:34 | XMS_ITS | Encounter Summary ---
:1965 Author Organization [facility] Address [address] [place] [address] Care Team Providers Name Role Phone Marcy Alvarenga CREDIT ADMINISTRATION SPECIALIST Primary Care Provider [phone] Encounter Details Date Type Department Care Team Description 06/18/2021 Lab Requisition [facility] Outr Resulting Lab, Pathology & Laboratory Provider [facility] [address] [address] Social History Tobacco Use Types Packs/Day Years [...] Infectious Disease Lilian Rushing MD [address] [facility], [address] [place], [place] [address] (Wo rk) documented as of this encounter Procedures Procedure Name Priority Date/Time Associated Diagnosis Comme nts T CELL SUBSETS Routine 06/18/2021 14:03 EDT Resul ts for this procedure are i n the results section . documented in this encounter Results (ABNORMAL) T CELL SUBSETS (06/18/2021 14:03 EDT) Pathologist Sig nature % CD3 76 56 - 84 % [facility] % CD4 34 31 - 64 % [facility] % CD8 40 (H) 9 - 39 % [facility] Absolute CD3 1,336 840-2,669 Cells/uL [facility] Absolute CD4 591 488-1,734 Cells/uL [facility] Absolute CD8 700 154-1,097 Cells/uL [facility] 4/8 Ratio 0.84 (L) >=0.90 [facility] Specimen Blood - Venous blood (substance) Performing Organization Address City/State/ZIP Code Phon e Number [facility] [address] [place] [address] SERVICES documented in this encounter Visit Diagnoses Not on filedocumented in this encounter Additional Health Concerns Infection Onset Date Last Indicated Resolved Time MRSAComment: Hx of BUQQ-Escg-96/23/2020 08/29/2021 08/29/20 21 C. Stoner 12/31/21 documented as of this encounter Care Teams Distillery Miller Relationship Specialty Start Date End Date Gil-Marcy Santos, PCP - General Family Medicine - Primary 1 11/13/18 CREDIT ADMINISTRATION SPECIALIST Care [address] [facility] [address] [place] [address] documented as of this encounter
--- OUTSIDE RECORDS SUMMARY | 2022-03-13 20:34 | XMS_ITS | Encounter Summary ---
:1965 Author Organization [facility] Address [address] [place] [address] Care Team Providers Name Role Phone Marcy Alvarenga MAJOR LEAGUE BASEBALL UMPIRE Primary Care Provider [phone] Encounter Details Date Type Department Care Team [...] Visit Infectious Disease Lilian Rushing MD [address] [facility], [address] [place] [address] (Wo rk) documented as of this encounter Visit Diagnoses Not on filedocumented in this encounter Care Teams Toddler Caregiver Relationship Specialty Start Date End Date Gil-Marcy Santos, PCP - General Family Medicine - Primary 1 11/13/18 MAJOR LEAGUE BASEBALL UMPIRE Care [address] [facility] [address] [place] [address] documented as of this encounter
--- OUTSIDE RECORDS SUMMARY | 2022-03-13 20:34 | XMS_ITS | Encounter Summary ---
:1965 Author Organization [facility] Address [address] [place] [address] Care Team Providers Name Role Phone Marcy Alvarenga CUSTOM DRESSMAKER Primary Care Provider [phone] Reason for Referral Radiology Services (Routine/Next Available) - Authorization Not Required Specialty Diagnoses / Procedures Referred By Contact Refer red To Contact Radiology Diagnoses Coccidioidomycosis Arthritis of left knee Lilian Rushing MD [facility] Mri Procedures MR KNEE W WO CONTRAST LEFT [address] [facility] 130 [facility] [address], [address] [place] [address] [place] [address] Referral ID Status Reason Start Expiration Visits Visits Date Date Requested Authorized [id number] Authorization Not 09/03/2021 1 1 Required Reason for Visit Reason Comments Follow-up Patient states no questions or concerns Encounter Details Date Type Department Care Team Description 09/03/[address] [facility] Lilian Rushing Coccidio idomycosis (Primary Dx); - [facility] Zari Ruiz MD Arthritis of left knee; Disease [address] Asymptomatic HIV infection (HCC); [address] [facility] [address], [address] Medication monitoring encounter; [place] [address] [place], [place] Flu vaccine need [phone] Social History Tobacco Use Types Packs/Day Years [...] followed up with dr. Jacobs from the [facility] [place]. See 07/03/21 note for details of that [...] MR KNEE W WO CONTRAST LEFT ??? [id number] - Influenza Vaccine Quad (FLUARIX/FLULAVAL) PF 0.5 [...] of the visit. Lilian Rushing MD, MPH [facility] Infectious Disease Office: [phone] documented in this encounter Plan of Treatment Upcoming Encounters Date Type Specialty Care Team Description 04/14/2022 Office Visit Infectious Disease Lilian Rushing MD [address] [place] [address], [address] [place] [address] (Wo rk) documented as of this encounter Results MR KNEE W WO CONTRAST LEFT (11/27/2021 19:34 EST) Anatomical Region Laterality Modality Lower Extremities Left Magnetic Resonance Specimen Impressions [facility] - 11/27/2021 20:08 EST Similar appearance [...] REGARDING THIS REPORT PLEASE CALL [facility] AT [phone] Narrative [facility] - 11/27/2021 20:08 EST PROCEDURE INFORMATION: [...] REGARDING THIS REPORT PLEASE CALL [facility] AT [phone] Performing Organization Address City/State/ZIP Code Phon e Number [facility] documented in this [...] Last Indicated Resolved Time MRSAComment: Hx of RJNL-Ejyi-56/23/2020 08/29/2021 08/29/20 21 C. Stoner 12/31/21 documented as of this encounter Care Teams Field Placement Director Relationship Specialty Start Date End Date Gil-Marcy Santos, PCP - General Family Medicine - Primary 1 11/13/18 CUSTOM DRESSMAKER Care [address] [place] [address] documented as of this encounter
--- OUTSIDE RECORDS SUMMARY | 2022-03-13 20:34 | XMS_ITS | Encounter Summary ---
:1965 Author Organization [facility] Address [address] [place] [address] Care Team Providers Name Role Phone Marcy Alvarenga CHANNEL SUPERVISOR Primary Care Provider [phone] Reason for Visit (Routine) - Receiving Office to Obtain Authorization Specialty Diagnoses / Procedures Referred By Contact Refer red To Contact Procedures Unknown, Provider, XR OUTSIDE IMAGES MSK Phone: Referral ID Status Reason Start Expiration Visits Visits Date Date Requested Authorized [id number] Receiving Office 02/12/2021 1 1 to Obtain Authorization Encounter Details Date Type Department Care Team Description 12/24/2020 Hospital Encounter [facility] Secondary Reads Social History Tobacco Use Types [...] 1 nael applied 0 swab topically PRN foiinfu-pfq-lcryc-tenof Take 1 Tab by mouth 90 Tab 3 05/202106/18/2021 ALAFEN (GENVOYA) daily for 90 days. [phone] mg tabletIndications: HIV infection lisinopriL (PRINIVIL) 10 [...] Visit Infectious Disease Lilian Rushing MD [address] [place] [address], [address] [place] [address] (Wo rk) documented as [...] on filedocumented in this encounter Care Teams Parts Cleaner Relationship Specialty Start Date End Date Gil-Marcy Santos, PCP - General Family Medicine - Primary 1 11/13/18 CHANNEL SUPERVISOR Care [address] [place] [phone] documented as of this encounter
--- OUTSIDE RECORDS SUMMARY | 2022-03-13 20:34 | XMS_ITS | Encounter Summary ---
:1965 Author Organization [facility] Address [address] [place] [address] Care Team Providers Name Role Phone Marcy Alvarenga CARE SUPPORT REPRESENTATIVE Primary Care Provider [phone] Reason for Visit Reason Onset Date Comments Other 02/05/2021 patient care Encounter Details Date Type Department Care Team Description 02/05/2021 Telephone [facility] - Jennie Rushing MD Other (patient care) [facility] Dermatology 130 [facility] 130 [facility] [address], [address] [place] [address] [place], [place] [phone] (Wo rk) Social History Tobacco Use [...] as well as the likely referral to [facility] Ortho. Also relayed my conversation with the [facility] [place]. They recommended treating with antifungals and repeating [...] did not need to talk with the director of strategic communications physician, but would like to talk. He will be operating tomorrowand will try to contact you in between patients, or he will be in office on and he said youcan reach him on his cell phone at [phone] signed by Radha Campbell at 02/05/2021 16:13 EDTdocumented in this encounter Plan of Treatment Upcoming Encounters Date Type Specialty Care Team Description 04/14/2022 Office Visit Infectious Disease Lilian Rushing MD [address] [place] [address], [address] [place] [address] (Wo rk) documented as of this encounter Visit Diagnoses Not on filedocumented in this encounter Care Teams Delivery Route Driver Relationship Specialty Start Date End Date Gil-Marcy Santos, PCP - General Family Medicine - Primary 1 11/13/18 CARE SUPPORT REPRESENTATIVE Care [address] [place] [address] [address] [place] [address] documented as of this encounter
--- OUTSIDE RECORDS SUMMARY | 2022-03-13 20:34 | XMS_ITS | Encounter Summary ---
:1965 Author Organization [facility] Address [address] [place] [address] Care Team Providers Name Role Phone Marcy Alvarenga MOTORCYCLE DELIVERER Primary Care Provider [phone] Reason for Visit Reason Onset Date Comments Other 01/22/2021 MRI screening form Encounter Details Date Type Department Care Team Description 01/22/2021 Telephone [facility] - Aissatou Iraheta RN Other (MRI screening [facility] Infectious Dise ase [address] form) [address] [place] [address] [place], [place] [address] Social History Tobacco Use Types Packs/Day Years [...] to [facility]. [facility] [...] Visit Infectious Disease Lilian Rushing MD [address] [facility], [address] [place] [address] (Wo rk) documented as of this encounter Visit Diagnoses Not on filedocumented in this encounter Care Teams Blocking Machine Operator Relationship Specialty Start Date End Date [place]-Marcy Santos, PCP - General Family Medicine - Primary 1 11/13/18 MOTORCYCLE DELIVERER Care [address] [phone] documented as of this encounter
--- OUTSIDE RECORDS SUMMARY | 2022-03-13 20:34 | XMS_ITS | Encounter Summary ---
:1965 Author Organization [facility] Address [address] [place] [address] Care Team Providers Name Role Phone Marcy Alvarenga STEWARD/STEWARDESS SECOND Primary Care Provider [phone] Encounter Details Date Type Department Care Team Description 11/26/2020 Results Only [facility] Lilian Rushing MD Infectious Disease [address], [address] [place], [place] [address] [place] [phone] (Wo rk) Social History Tobacco Use Types [...] Visit Infectious Disease Lilian Rushing MD 130 [facility], [address] [place] [address] (Wo rk) documented as [...] Results (ABNORMAL) IMMUNODEFICIENCY PANEL (11/26/2020 14:07 EST) [facility] % CD3 74 62 - 87 % [facility] % CD4 34 (A) 35 - 63 % [facility] % CD8 36 (A) 10 - 35 % [facility] Absolute CD4 [phone],[phone] [facility] Comment: Cells/uL [facility] Test performed or referred by The [address] [address] Specimen Narrative [facility] - 021 20:33 EST Does PT Have a Latex Allergy? NO Performing Organization Address City/State/ZIP Code Phon e Number [facility] [address] [place] [address] HIV 1 RNA QUANTITATION (11/26/2020 14:07 EST) [facility] HIV-1 RNA QUANT - Undetected Undetected [facility] Comment: [facility] INFCE Result Units: copies/mL Result in log copies/mL is Undetected. ADDITIONAL INFORMATION ------ The quantification range of this assay is 20 to 10,000 ,000 copies/mL (1.30 log to 7.00 log copies/mL). Testing wa s performed using the rafael HIV-1 test ([employer] with the rafael [id number] System. This test has been modified from the aerospace manager's instructions. Its performance characteristics were determined by [facility] in a manner consistent with CLIA requirements. This test has not been cleared or approv ed by the U.S. Food and Drug Administration. Test Performed by: [facility] [address] [place] [address] Chain Machine Operator: Pritesh Mcgee M.D. Ph.D.; CLIA# [id number] Specimen Narrative [facility] - 021 20:33 EST Does PT Have a Latex Allergy? NO Performing Organization Address City/State/ZIP Code Phon e Number [facility] [address] [place] [address] URINALYSIS - [facility] (11/26/2020 14:07 EST) URINE APPEARANCE - Clear CLEAR [facility] URINE BILIRUBIN - Negative NEGATIVE [facility] DIPSTICK [facility] URINE BLOOD - [facility] Negative NEG [facility] URINE COLOR - [facility] Yellow YELLOW [facility] URINE GLUCOSE - Negative [facility]GATIVE [facility] URINE KETONE - [facility] Negative NEGATIVE [facility] URINE LEUK ESTERASE Negative NEG [facility] URINE NITRITE - Negative NEG [facility] DIPSTICK [facility] URINE PH - [facility] 7.0 4.0 - 8.0 [facility] URINE PROTEIN - Negative NEG [facility] DIPSTICK [facility] URCULTIF+? - [facility] No Culture [facility] IndicatedComment: [facility] CULTURE IS NOT INDICATED, BASED ON RESULTS OF THE URINALYSIS URINE SPECIFIC 1.020 1.001 - 1.035 [facility] GRAVITY - [facility] URINE UROBILINOGEN - 0.2 0.2 - 1.0 [facility] DIPSTICK [facility] Specimen Narrative [facility] - 021 15:27 EST Does PT Have a Latex Allergy? NO Performing Organization Address City/State/ZIP Code Phon e Number [facility] [address] [place] [address] (ABNORMAL) COMPREHENSIVE METABOLIC PANEL (CMP) (11/26/2020 14:07 EST) ALBUMIN - [facility] 3.8 3.4 - 4.9 [facility] g/dL [facility] ALKALINE 77 38 - 126 U/L [facility] PHOSPHATASE [facility] BILIRUBIN TOTAL 0.3 0.2 - 1.3 [facility] mg/dL [facility] BUN - [facility] 21 10 - 26 mg/dL [facility] CALCIUM - [facility] 9.0 8.5 - 10.5 [facility] mg/dL [facility] Chloride 100 96 - 110 [facility] mmol/L [facility] CO2 Total 28 21 - 32 mEq/L [facility] CREATININE 1.04 0.66 - 1.25 [facility] mg/dL [facility] eGFR >60 [facility] Comment: [facility] Chronic renal impairment is defined as GFR <60 Multiply result by 1.210 for patients . Anion Gap 10 0 - 18 [facility] GLUCOSE - [facility] 109 (H) 70 - 100 [facility] mg/dL [facility] Potassium 4.7 3.5 - 5.0 [facility] mEq/L [facility] Sodium 138 136 - 145 [facility] mEq/L [facility] TOTAL PROTEIN - 6.7 6.2 - 8.2 [facility] gm/dL [facility] SGOT/AST - [facility] 20 17 - 59 U/L [facility] SGPT/ALT - [facility] 15 0 - 50 U/L [facility] Specimen Narrative [facility] - 021 15:03 EST Does PT Have a Latex Allergy? NO Performing Organization Address City/State/ZIP Code Phon e Number [facility] [address] [place] [address] (ABNORMAL) COMPLETE BLOOD COUNT WITH DIFFERENTIAL (AUTO) (11/26/2020 14:07 EST) Pathologist Sig nature ABSOLUTE NEUTROPHIL 4.6 2.2 - 8.85 [facility] COUN - [facility] 10e3/uL [facility] BASO # - [facility] 0.02 0.01 - 0.11 [facility] 10e/uL [facility] BASO % - [facility] 0 0 - 2 % [facility] EOS # - CV 0.06 0.03 - 0.61 [facility] 10e3/ul [facility] EOS % - [facility] 1 0 - 5 % [facility] GRAN % - [facility] 64.1 40 - 80 % [facility] HEMATOCRIT - [facility] 38.3 (L) 39.5 - 50.2 % [facility] HEMOGLOBIN - [facility] 12.8 (L) 13.8 - 17.3 [facility] g/dl [facility] IG# - [facility] 0.01 0 - 0.7 10e3/uL [facility] IG% - [facility] 0.1 0 - 0.9 % [facility] LYMPH # - CV 1.8 1.09 - 3.3 [facility] 10e3/ul [facility] LYMPH% - [facility] 24.6 20 - 40 % [facility] MEAN CORPUSCULAR HGB 28.3 27.6 - 33.0 pg [facility] ME D - CV [facility] MEAN CORPUSCULAR HGB 33.4 32.8 - 36.4 [facility] CONC - [facility] g/dL [facility] MEAN CELL VOLUME - 84.7 81 - 95 fl [facility] MONO # - [facility] 0.7 0.1 - 0.8 [facility] 10e3/uL [facility] MONO% - CV 10.1 0 - 12 % [facility] PLATELET COUNT 317 141 - 377 [facility] 10e3/ul [facility] RED BLOOD COUNT - 4.52 4.36 - 5.78 [facility] 10e3/ul [facility] RED CELL DISTRI WIDTH 14.4 <14.2 % [facility] WHITE BLOOD COUNT - 7.2 4.0 - 10.4 [facility] 10e3/ul [facility] Specimen Narrative [facility] - 021 14:55 EST Does PT Have a Latex Allergy? NO Performing Organization Address City/State/ZIP Code Phon e Number [facility] [address] [place] [address] documented in this encounter Visit Diagnoses Not on filedocumented in this encounter Care Teams Table Tender Relationship Specialty Start Date End Date Gil-Marcy Santos, PCP - General Family Medicine - Primary 1 11/13/18 STEWARD/STEWARDESS SECOND Care [address] [place] [phone] documented as of this encounter
--- OUTSIDE RECORDS SUMMARY | 2022-03-13 20:34 | XMS_ITS | Encounter Summary ---
:1965 Author Organization [facility] Address [address] [place] [address] Care Team Providers Name Role Phone Marcy Alvarenga RESISTOR WINDER Primary Care Provider [phone] Reason for Visit Reason Comments Other Encounter Details Date Type Department Care Team Description 04/30/2021 Refill [facility] Geoff Alvarenga, Other Infectious Disease RESISTOR WINDER [address] [place] [address] [address] [place] [phone] (Wo rk) Social History Tobacco Use [...] Visit Infectious Disease Lilian Rushing MD [address] [place] [address] [address] [place], [place] [phone] (Wo rk) documented as of this encounter Visit Diagnoses Not on filedocumented in this encounter Discontinued Medications Medication Sig Discontinue Reason Start Date End Date tamsulosin (FLOMAX) 0.4 Take 1 Cap by mouth 04/18/2020 05/01/2021 mg capsule daily. documented as of this encounter Additional Health Concerns Infection Onset Date Last Indicated Resolved Time MRSAComment: Hx of [id number]-43/23/2020 08/29/2021 08/29/20 21 C. Stoner 12/31/21 documented as of this encounter Care Teams School Counsellor Relationship Specialty Start Date End Date Gil-Marcy Santos, PCP - General Family Medicine - Primary 1 11/13/18 RESISTOR WINDER Care [address] [place] [address] [address] [place] [phone] documented as of this encounter
--- OUTSIDE RECORDS SUMMARY | 2022-03-13 20:34 | XMS_ITS | Encounter Summary ---
:1965 Author Organization [facility] Address [address] [place] [address] Care Team Providers Name Role Phone Marcy Alvarenga CASINO SLOT SUPERVISOR Primary Care Provider [phone] Reason for Visit Reason Comments Follow-up Plantar warts Follow-up Encounter Details Date Type Department Care Team Description 06/12/2020 Office Visit [facility] - Perlita Mcmahon P lantar verruca (Primary Dx); [facility] DPM Digital mucous cyst of toe Podiatry [address] [place] [address], [facility] [address] [place] [address] [place], [place] [address] (Wo rk) Social History Tobacco Use Types [...] Visit Infectious Disease Lilian Rushing MD 130 [facility] [address] [place] [address] (Wo rk) documented as of this encounter Visit Diagnoses Diagnosis Plantar verruca - Primary Plantar wart Digital mucous cyst of toe documented in this encounter Care Teams Machinist Linotype Relationship Specialty Start Date End Date Gil-Marcy Santos, PCP - General Family Medicine - Primary 1 11/13/18 CASINO SLOT SUPERVISOR Care [address] [place] [address] [address] [place] [address] documented as of this encounter
--- OUTSIDE RECORDS SUMMARY | 2022-03-13 20:34 | XMS_ITS | Encounter Summary ---
:[address] [facility] Address [address] [place] [address] Care Team Providers Name Role Phone Marcy Alvarenga ROSE GRADING SUPERVISOR Primary Care Provider [phone] Reason for Referral Radiology Services (Routine/Next Available) - Specialty Report Received Specialty Diagnoses / Procedures Referred By Contact Refer red To Contact Diagnoses Chronic pain of left knee Chaitanya Easton MD Procedures XR KNEE RIGHT 3 [address] [place] [address] Referral ID Status Reason Start Date Expiration Date Visits V isits Requested Authorized [id number] Specialty 06/14/2021 1 1 Report Received Reason for Visit Radiology Services (Routine/Next Available) - Specialty Report Received Specialty Diagnoses / Procedures Referred By Contact Refer red To Contact Diagnoses Chronic pain of left knee Chaitanya Easton MD Procedures XR KNEE RIGHT [address] [place] [address] Referral ID Status Reason Start Date Expiration Date Visits V isits Requested Authorized [id number] Specialty 06/14/2021 1 1 Report Received Encounter Details Date Type Department Care Team Description 06/18/2021 Hospital Encounter [facility] Xray Chronic pain of left [address] [place] [address] Social History Tobacco Use Types Packs/Day Years [...] Office Visit Infectious Disease Lilian Rushing MD [address] [place] [address], [address] [place] [address] (Wo rk) documented as [...] Lower Extremities Right Computed Radiography Specimen Impressions [facility] [place] [place] - 06/18/2021 11:48 EDT FINDINGS / IMPRESSION: * ??Left knee 4 views: Moderate joint ef fusion. Tricompartmental degenerative changes which are moderate to severe. Osteopenia. * ??Right knee 3 views: No significant o steophyte formation. Osteopenia. Narrative [facility] - 06/18/2021 11:48 EDT EXAM/TECHNIQUE: 06/18/2021 9:00 AM ??XR KNEE LEFT 4 OR MORE VIEWS, XR KNEE RIGHT 3 VIEWS 4 (accession [id number]), 3 (accession [id number]) views ?? HISTORY: ??left knee pain COMPARISON: None. Procedure Note Faustino Pereira MD - 06/18/2021 EXAM/TECHNIQUE: 06/18/2021 9:00 AM XR KNE E LEFT 4 OR MORE VIEWS, XR KNEE RIGHT 3 VIEWS 4 (accession [id number]), 3 (accession [id number]) views HISTORY: left knee pain COMPARISON: None. IMPRESSION FINDINGS / IMPRESSION: * Left knee 4 views: Moderate joint effu leigh ann. Tricompartmental degenerative changes which are moderate to severe. Osteopenia. * Right knee 3 views: No significant ost eophyte formation. Osteopenia. Performing Organization Address City/State/ZIP Code Phon e Number [facility] documented in this encounter Visit Diagnoses Diagnosis Chronic pain of left knee Pain in joint, lower leg documented in this encounter Care Teams Cosmetics Supervisor Relationship Specialty Start Date End Date Gil-Marcy Santos, PCP - General Family Medicine - Primary 1 11/13/18 ROSE GRADING SUPERVISOR Care [address] [place] [phone] documented as of this encounter
--- OUTSIDE RECORDS SUMMARY | 2022-03-13 20:34 | XMS_ITS | Encounter Summary ---
:[address] [facility] Address [address] [place] [address] Care Team Providers Name Role Phone aMrcy Alvarenga DRAW TENDER Primary Care Provider [phone] Reason for Referral Radiology Services (Routine) - Specialty Report Received Specialty Diagnoses / Procedures Referred By Contact Refer red To Contact Radiology Diagnoses Coccidioidomycosis Lilian Rushing MD Procedures MR KNEE W WO CONTRAST LEFT [address] [facility], [address] [place] [address] Referral ID Status Reason Start Date Expiration Date Visits V isits Requested Authorized [id number] Specialty 05/06/2021 1 1 Report Received Reason for Visit Reason Onset Date Comments Orders (Non Pre-visit) 05/06/2021 Encounter Details Date Type Department Care Team Description 05/06/2021 Telephone [facility] - Aissatou Iraheta RN Orders (Non Pre-visit) [facility] Infectious Dise ase [address] [place] [address] [place] [address] Social History Tobacco Use Types [...] Visit Infectious Disease Lilian Rushing MD 130 [facility] [address] [place] [address] (Wo rk) Scheduled Orders Name Type Priority Associated Diagnoses Order S chedule MR KNEE W WO CONTRAST LEFT Imaging Routine Coccidioidomyc osis Ordered: 05/06/2021 documented as of this encounter Visit Diagnoses Diagnosis Coccidioidomycosis - Primary Coccidioidomycosis, unspecified documented in this encounter Care Teams Ton Container Shipper Relationship Specialty Start Date End Date Gil-Marcy Santos, PCP - General Family Medicine - Primary 1 11/13/18 DRAW TENDER Care [address] [place] [address] [place] [address] documented as of this encounter
--- OUTSIDE RECORDS SUMMARY | 2022-03-13 20:34 | XMS_ITS | Encounter Summary ---
:1965 Author Organization [facility] Address [address] [place] [address] Care Team Providers Name Role Phone Marcy Alvarenga TOOL AND DIE DESIGNER Primary Care Provider [phone] Encounter Details Date Type Department Care Team [...] Infectious Disease Lilian Rushing MD 130 [facility], [address] [place] [address] (Wo rk) documented as of this encounter Visit Diagnoses Not on filedocumented in this encounter Care Teams Bioinformatics Programmer Relationship Specialty Start Date End Date Gil-Marcy Santos, PCP - General Family Medicine - Primary 1 11/13/18 TOOL AND DIE DESIGNER Care [address] [facility] [address] [place] [address] documented as of this encounter
--- OUTSIDE RECORDS SUMMARY | 2022-03-13 20:34 | XMS_ITS | Encounter Summary ---
:1965 Author Organization [facility] Address [address] [place] [address] Care Team Providers Name Role Phone Marcy Alvarenga BUY BOAT OPERATOR Primary Care Provider [phone] Encounter Details Date Type Department Care Team Description 11/26/2020 Lab Requisition [facility] Outr Resulting Lab, Pathology & Laboratory Provider [facility] [address] [place] [id number] Social History Tobacco Use Types Packs/Day Years [...] Infectious Disease Lilian Rushing MD 130 [facility], [address] [place] [address] (Wo rk) documented as of this encounter Procedures Procedure Name Priority Date/Time Associated Diagnosis Comme nts T CELL SUBSETS Routine 11/26/2020 14:07 EST Resul ts for this procedure are i n the results section . documented in this encounter Results (ABNORMAL) IMMUNODEFICIENCY PANEL (11/26/2020 14:07 EST) Pathologist Sig nature % CD3 74 62 - 87 % [facility] % CD4 34 (L) 35 - 63 % [facility] % CD8 36 (H) 10 - 35 % [facility] Absolute CD4 600 329-1,427 Cells/uL [facility] Specimen Blood - Venous blood (substance) Performing Organization Address City/State/ZIP Code Phon e Number [facility] [address] [place] [address] SERVICES documented in this encounter Visit Diagnoses Not on filedocumented in this encounter Additional Health Concerns Infection Onset Date Last Indicated Resolved Time MRSAComment: Hx of [id number]-Rpts-61/23/2020 08/29/2021 08/29/20 21 C. Stoner 12/31/21 documented as of this encounter Care Teams State Director Relationship Specialty Start Date End Date Gil-Marcy Santos, PCP - General Family Medicine - Primary 1 11/13/18 BUY BOAT OPERATOR Care [address] [facility] [address] [place] [address] documented as of this encounter
--- OUTSIDE RECORDS SUMMARY | 2022-03-13 20:34 | XMS_ITS | Encounter Summary ---
:1965 Author Organization [facility] Address [address] [place] [address] Care Team Providers Name Role Phone Marcy Alvarenga DISPATCHER ELECTRIC POWER Primary Care Provider [phone] Encounter Details Date Type Department Care Team Description 06/02/2021 Results Only Imaging [facility] - Lilian Rushing MD [facility] Radiology Resul ts 130 [facility] [address] [facility], [address] [place] [address] [place], [place] [phone] [phone] (Wo rk) Social History Tobacco Use [...] Visit Infectious Disease Lilian Rushing MD [address] [place] [address], [address] [place] [address] (Wo rk) documented as of this encounter Procedures Procedure Name Priority Date/Time Associated Diagnosis Comme nts MR KNEE W WO 06/02/2021 10:08 Results for this CONTRAST LEFT EDT procedure are in the results section. documented in this encounter Results MR KNEE W WO CONTRAST LEFT (06/02/2021 10:08 EDT) Specimen Narrative [facility] - 06/02/2021 10:08 EDT ? EXAM: [...] OTHER VENDOR SYSTEM 06/02/2021 ?Reported B y: Artru Coley MD ? CC: ? Transcribed Date/Time: 06/02/2021 (1008) ? Astrobiologist: ? Printed Date/Time: 06/02/2021 (10 08) ? [...] MD CC: Transcribed Date/Time: 06/02/2021 (1008 ) Astrobiologist: Printed Date/Time: 06/02/2021 (1000) PAGE 1 Signed Report Performing Organization Address City/State/ZIP Code Phon e Number [facility] documented in this encounter Visit Diagnoses Not on filedocumented in this encounter Additional Health Concerns Infection Onset Date Last Indicated Resolved Time MRSAComment: Hx of [id number]-08/23/2020 08/29/2021 08/29/20 21 C. Stoner 12/31/21 documented as of this encounter Care Teams Psych Sales Specialist Relationship Specialty Start Date End Date Gil-Marcy Santos, PCP - General Family Medicine - Primary 1 11/13/18 DISPATCHER ELECTRIC POWER Care [address] [place] [phone] documented as of this encounter
--- OUTSIDE RECORDS SUMMARY | 2022-03-13 20:34 | XMS_ITS | Encounter Summary ---
:1965 Author Organization [facility] Address [address] [place] [address] Care Team Providers Name Role Phone Marcy Alvarenga MATERIALS MANAGEMENT SUPERVISOR Primary Care Provider [phone] Reason for Visit Reason Comments Knee Pain Left knee pain Pain Referral (Routine) - Specialty Report Received Specialty Diagnoses / Procedures Referred By Contact Refer red To Contact Orthopedic Surgery Diagnoses DJD (degenerative joint disease) Reginaldo Laura MD [address] [facility] [place], [place] [address] [address] [place] [address] Phone: Fax: Referral ID Status Reason Start Date Expiration Date Visits V isits Requested Authorized [id number] Specialty 1 1 Report Received Encounter Details Date Type Department Care Team Description 06/18/2021 Office Visit [facility] Rustam, Arthritis of left knee [facility] Program - Frankie Tavares (Primary Dx) [address] [facility] [address] [place], [facility] [address] [phone] Social History Tobacco Use Types Packs/Day Years [...] describes knee swelling. When he was in [place] he suffered a Coccidioides infection. Subs equently, [...] is being followed by Dr. Rushing in [facility]. He was previously evaluated by Dr. Laura in [facility]. According to him, the knee was [...] Office Visit Infectious Disease Lilian Rushing MD [address] [place] [address] [address] [place] [address] (Wo rk) documented as of this encounter Visit Diagnoses Diagnosis Arthritis of left knee - Primary Unspecified arthropathy, lower leg documented in this encounter Care Teams Accountant Certified Public Relationship Specialty Start Date End Date Gil-Marcy Santos, PCP - General Family Medicine - Primary 1 11/13/18 MATERIALS MANAGEMENT SUPERVISOR Care [address] [place] [address] [address] [place] [address] documented as of this encounter
--- OUTSIDE RECORDS SUMMARY | 2022-03-13 20:34 | XMS_ITS | Encounter Summary ---
:1965 Author Organization [facility] Address [address] [place] [address] Care Team Providers Name Role Phone Marcy Alvarenga FUNERAL HOME DIRECTOR Primary Care Provider [phone] Reason for Visit Reason Onset Date Comments Results 01/09/2021 Encounter Details Date Type Department Care Team Description 01/09/[address] [facility] [place] [facility] Lilian Rushing MD Results Infectious Disease 130 [facility] 130 [facility] [place] [address] [place], [place] [address] [place] [address] (Wo rk) Social History Tobacco Use [...] bacteria Fungal culture - mold, sent to [place] for ID elephone Encounter - Aissatou Iraheta [...] call from Mekhi from Dr. Woods at [facility]. He did a procedure on Ha's knee on 12/24/20 and the culture is now growing mold. The isolate has been sent to [facility] and on to [place] for identification. Verbal report of Coccidioidomycosis, but Epic chart just says mold. [facility] making any other decisions, but I would like to see him in clinic next week. Thanks! documented in this encounter Plan of Treatment Upcoming Encounters Date Type Specialty Care Team Description 04/14/2022 Office Visit Infectious Disease Lilian Rushing MD [address] [place] [address] [address] [place] [address] (Wo rk) documented as of this encounter Visit Diagnoses Not on filedocumented in this encounter Care Teams Car Barn Laborer Relationship Specialty Start Date End Date Gil-Marcy Santos, PCP - General Family Medicine - Primary 1 11/13/18 FUNERAL HOME DIRECTOR Care [address] [place] [address] 2 [place] [address] documented as of this encounter
--- OUTSIDE RECORDS SUMMARY | 2022-03-13 20:34 | XMS_ITS | Encounter Summary ---
:1965 Author Organization [facility] Address [address] [place] [address] Care Team Providers Name Role Phone Marcy Alvarenga FIRST COAT SANDER Primary Care Provider [phone] Encounter Details Date Type Department Care Team [...] Infectious Disease Lilian Rushing MD 130 [facility], [address] [place] [address] (Wo rk) documented as of this encounter Visit Diagnoses Not on filedocumented in this encounter Care Teams Manager Speech Relationship Specialty Start Date End Date Marcy Alvarenga, PCP - General Family Medicine - Primary 1 11/13/18 FIRST COAT SANDER Care [address] [facility] [address] [place] [address] documented as of this encounter
--- OUTSIDE RECORDS SUMMARY | 2022-03-13 20:34 | XMS_ITS | Encounter Summary ---
:1965 Author Organization [facility] Address [address] [place] [address] Care Team Providers Name Role Phone Marcy Alvarenga WET SANDER Primary Care Provider [phone] Reason for Visit Reason Comments Follow-up HIV Infection Encounter Details Date Type Department Care Team Description 12/03/2020 Office Visit [facility] Lilian Rushing Asy mptomatic HIV infection ([facility]) (Primary Dx); [facility] Infectious MD Medication monitoring encounter; Disease 130 [facility] High risk homosexual behavior [address], [address] [place] [address] [place] [phone] Social History Tobacco Use Types Packs/Day [...] Sig Dispensed Refills Start Date End Date xesagdw-qcu-voeli-tenof Take 1 Tab by mouth 90 Tab 3 05/202106/18/2021 ALAFEN (GENVOYA) daily for 90 days. [phone] mg tabletIndications: HIV infection documented in this [...] increasing creatinine.Remote h/o coccidioidomycosis. He move to [facility] from [place] in the summer of 2018 to take care of his aging parents, but is planning on moving at some point. 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 He is now set up with [facility] for his HIV meds. 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 No other travel since [place]. No side effects from his medications and [...] Other Orders Placed This Visit Procedures ??? [facility] Sites, Chlamydia trachomatis and Neisseria gonorrhoea, Amplified RNA ??? Mis Sites, Chlamydia trachomatis and Neisseria gonorrhoea, Amplified RNA ??? Chlamydia/N. gonorrhoeae Amplified RNA Med Orders Placed This Visit and Additions to the Medication List Medications ??? rdzckhx-srh-ytuzo-tenof ALAFEN (GENVOYA) [phone] mg tablet Sig: Take 1 Tab by mouth daily for 90 days. Dispense: 90 Tab Refill: 3 Lilian Rushing MD, MPH [facility] Infectious Disease Office: [phone] documented in this encounter Miscellaneous Notes Result QuickNote - Aissatou Iraheta RN - 12/03/2020 1100 EST See TE, reviewing per ID protocol. documented in this encounter Plan of Treatment Upcoming Encounters Date Type Specialty Care Team Description 04/14/2022 Office Visit Infectious Disease Lilian Rushing MD [address] [place] [address], [address] [place] [address] (Wo rk) Scheduled Orders Name Type Priority Associated Diagnoses Order S chedule N. GONORRHOEAE AND Microbiology Routine Asymptomatic HIV Order ed: CHLAMYDIA TRACHOMATIS, infection ([facility]) 12/03/2020 [facility], AMPLIFIED High risk homosexua l RNA behavior N. GONORRHOEAE AND Microbiology Routine Asymptomatic HIV Order ed: CHLAMYDIA TRACHOMATIS, infection ([facility]) 12/03/2020 [facility], AMPLIFIED High risk homosexua l RNA behavior CHLAMYDIA/N. Microbiology Routine Asymptomatic HIV Ordered: GONORRHOEAE AMPLIFIED infection ([facility]) 12/03/2020 RNA High risk homosexual behavior documented as of this encounter Procedures Procedure Name Priority Date/Time Associated Diagnosis Comme nts MISCELLANEOUS TEST, Routine 12/03/2020 18:57 Asymptomatic HIV Results for this GREEN EST infection ([facility]) procedur e are in the results section. MISCELLANEOUS TEST, Routine 12/03/2020 11:45 Asymptomatic HIV Results for this GREEN EST infection ([facility]) procedur e are in the results section. CHLAMYDIA/GC AMPLIFIED Routine 12/03/2020 11:45 Asymptomatic H IV Results for this [facility] EST infection ([facility]) procedur e are in the results section. MISCELLANEOUS TEST, Routine 12/03/2020 11:40 Asymptomatic HIV Results for this GREEN EST infection ([facility]) procedur e are in the results section. documented in this encounter Results (ABNORMAL) MISCELLANEOUS TEST, [place] (12/03/2020 18:57 EST) [facility] MISCELLANEOUS TEST - SEE BELOW (A) () [facility] Comment: [facility] Test ? Result ?? Flag ??Unit ??RefValue ------ [facility] C trach/N gonor Amplified RNA ??SOURCE: ?THROAT ?C. trach, Misc, Amplified ?Negative ? Negative ?RNA ADDITIONAL INFORMATION ------ This report is intended for use in clinical monitoring and management of patients. ??It is not intended for use i n medical-legal applications. This test has been modified from the auto refinisher's instructions. ??Its performance characteristics were determined by [facility] in a manner consistent with CLIA [...] This test has been modified from the auto refinisher's instructions. ??Its performance characteristics were determined by [facility] in a manner consistent with CLIA requirements. ??This test has not been cleared or appr sylvester by the U.S. Food and Drug Administration. Test Performed by: [facility] - [address] [address] Level Vial Setter: Pritesh Mcgee M.D. Ph.D.; CLIA# [id number] Specimen Performing Organization Address City/State/ZIP Code Phon e Number [facility] [address] [place] [address] MISCELLANEOUS TEST, [place] (12/03/2020 11:45 EST) [facility] MISCELLANEOUS TEST - SEE BELOW () [facility] Comment: [facility] Test ? Result ?? Flag ??Unit ??RefValue ------ T.vaginalis, Misc, Amplified RNA ??SOURCE: ?URINE ?T.vaginalis, Misc, ? Negative ? Negative ?amplified RNA ADDITIONAL INFORMATION ------ This test has been modified from the auto refinisher's instructions. Its performance characteristics were determined by [facility] in a manner consistent with CLIA requirements. This test has not been cleared or approv ed by the U.S. Food and Drug Administration. Test Performed by: [place] [address] Level Vial Setter: Pritesh Mcgee M.D. Ph.D.; CLIA# [id number] Specimen Performing Organization Address [facility] Phon e Number [facility] [address] [place] [id number] CHLAMYDIA/GC AMPLIFIED PROBE (12/03/2020 11:45 EST) Chlamydia Result Negative Negative [facility] GC Result Negative Negative [facility] Comment: [facility] Source:URINE Test performed or referred by The [address] [address] SPECIMEN DESCRIP - DNR () [facility] Specimen Performing Organization Address [facility] Phon e Number [facility] [address] [place] [address] MISCELLANEOUS TEST, [place] (12/03/2020 11:40 EST) MISCELLANEOUS TEST - SEE BELOW () [facility] Comment: [facility] Test ? Result ?? Flag ??Unit ??RefValue ------ Misc C trach/N gonor Amplified RNA ??SOURCE: ?RECTUM ?C. trach, Misc, Amplified ?Negative ? Negative ?RNA ADDITIONAL INFORMATION ------ This report is intended for use in clinical monitoring and management of patients. ??It is not intended for use i n medical-legal applications. This test has been modified from the auto refinisher's instructions. ??Its performance characteristics were determined by [facility] in a manner consistent with CLIA [...] This test has been modified from the auto refinisher's instructions. ??Its performance characteristics were determined by [facility] in a manner consistent with CLIA requirements. ??This test has not been cleared or appr sylvester by the U.S. Food and Drug Administration. Test Performed by: [facility] [address] [place] [address] Level Vial Setter: Pritesh Mcgee M.D. Ph.D.; CLIA# [id number] Specimen Performing Organization Address City/State/[facility] Code Phon e Number [facility] [address] [place] [address] documented in this encounter Visit Diagnoses Diagnosis Asymptomatic HIV infection (HCC) - Prima ry Asymptomatic human immunodeficiency viru s (HIV) infection status Medication monitoring encounter Encounter for therapeutic drug monitorin g High risk homosexual behavior Problems related to high-risk sexual beh avior documented in this encounter Discontinued Medications Medication Sig Discontinue Reason Start Date End Date csqhdyc-nlg-nursz-tenof Take 1 Tab by mouth Reorder 06/04/2020 12/03/2020 ALAFEN (GENVOYA) daily for 90 days. [phone] mg tabletIndications: HIV infection documented as of this encounter Care Teams Lead Nuclear Medicine Technologist Relationship Specialty Start Date End Date Gil-Marcy Santos, PCP - General Family Medicine - Primary 1 11/13/18 WET SANDER Care [address] [place] [phone] documented as of this encounter
--- OUTSIDE RECORDS SUMMARY | 2022-03-13 20:34 | XMS_ITS | Encounter Summary ---
:[address] [facility] Address [address] [place] [address] Care Team Providers Name Role Phone Marcy Alvarenga CEILING INSTALLER Primary Care Provider [phone] Reason for Referral Radiology Services (Routine/Next Available) - Closed Specialty Diagnoses / Procedures Referred By Contact Refer red To Contact Diagnoses Chronic pain of left knee Chaitanya Easton MD Procedures XR KNEE RIGHT 3 VIEWS [address] [place] [address] Referral ID Status Reason Start Date Expiration Date Visits Requ ested Visits Authorized [id number] Closed 03/27/2021 1 1 adiology Services (Routine/Next Available) - Closed Specialty Diagnoses / Procedures Referred By Contact Refer red To Contact Diagnoses Chronic pain of left knee Chaitanya Easton MD Procedures XR KNEE LEFT 4 OR MORE VIEWS [address] [place] [address] Referral ID Status Reason Start Date Expiration Date Visits Requ ested Visits Authorized [id number] Closed 03/27/2021 1 1 Reason for Visit Reason Onset Date Comments Knee Pain 03/27/2021 Encounter Details Date Type Department Care Team Description 03/27/[address] [facility] Jr Easton ain of left Total Joint Program - Frankie Tavares knee (Primary Dx) [address] Vito Plasencia, [place] [facility] [address] [phone] Social History Tobacco Use Types Packs/Day Years [...] Visit Infectious Disease Lilian Rushing MD [address] [place] [address] [address] [place] [address] (Wo rk) Scheduled Orders [...] leg documented in this encounter Care Teams Small Appliance Assembly Supervisor Relationship Specialty Start Date End Date Gil-Marcy Santos, PCP - General Family Medicine - Primary 1 11/13/18 CEILING INSTALLER Care [address] [place] [address] 2 [place] [address] documented as of this encounter
--- OUTSIDE RECORDS SUMMARY | 2022-03-13 20:34 | XMS_ITS | Encounter Summary ---
:[address] [facility] Address [address] [place] [address] Care Team Providers Name Role Phone Marcy Alvarenga CANVAS CUTTER Primary Care Provider [phone] Reason for Visit Reason Onset Date Comments Pre-visit Orders 11/20/2020 Encounter Details Date Type Department Care Team Description 11/20/2020 Telephone [facility] - [facility] Aissatou Iraheta RN Pre-visit Orders Infectious Disease [address] [place] [address] [place] [address] [phone] Social History Tobacco Use Types Packs/Day Years [...] Visit Infectious Disease Lilian Rushing MD 130 [facility], [address] [place] [address] (Wo rk) documented as of this encounter Visit Diagnoses Diagnosis Asymptomatic HIV infection (HCC) - Prima ry Asymptomatic human immunodeficiency viru s (HIV) infection status documented in this encounter Care Teams House Decorator Relationship Specialty Start Date End Date Mcneil-Marcy Santos, PCP - General Family Medicine - Primary 1 11/13/18 CANVAS CUTTER Care [address] [place] [address] 2 [place] [address] documented as of this encounter
--- OUTSIDE RECORDS SUMMARY | 2022-03-13 20:34 | XMS_ITS | Encounter Summary ---
:1965 Author Organization [facility] Address [address] [place] [address] Care Team Providers Name Role Phone Marcy Alvarenga COUNTER WAITRESS/WAITER Primary Care Provider [phone] Reason for Visit Reason Onset Date Comments Prior Auth, Medication 08/06/2021 Encounter Details Date Type Department Care Team Description 08/06/2021 Telephone [facility] - Lilian Rushing Pri or Auth, Medication [facility] Infectious Dise ase [address] [place] [address] [place] [place] [address] Social History Tobacco Use Types [...] out for 4 days already. Ramirez in [place]. documented in this encounter Plan of Treatment Upcoming Encounters Date Type Specialty Care Team Description 04/14/2022 Office Visit Infectious Disease Lilian Rushing MD 130 [facility] [address] [place] [address] (Wo rk) documented as of this encounter Visit Diagnoses Not on filedocumented in this encounter Care Teams Associate Programmer Analyst Relationship Specialty Start Date End Date Gil-Marcy Santos, PCP - General Family Medicine - Primary 1 11/13/18 COUNTER WAITRESS/WAITER Care [address] [place] [address] [address] [place] [address] documented as of this encounter
--- OUTSIDE RECORDS SUMMARY | 2022-03-13 20:34 | XMS_ITS | Encounter Summary ---
:1965 Author Organization [facility] Address [address] [place] [address] Care Team Providers Name Role Phone Marcy Alvarenga PHP CONSULTANT Primary Care Provider [phone] Reason for Referral Radiology Services (Routine/Next Available) - Specialty Report Received Specialty Diagnoses / Procedures Referred By Contact Refer red To Contact Diagnoses Chronic pain of left knee Chaitanya Easton MD Procedures XR KNEE LEFT 4 OR MORE VIEWS [address] [place] [address] Referral ID Status Reason Start Date Expiration Date Visits V isits Requested Authorized [id number] Specialty 06/14/2021 1 1 Report Received Reason for Visit Radiology Services (Routine/Next Available) - Specialty Report Received Specialty Diagnoses / Procedures Referred By Contact Refer red To Contact Diagnoses Chronic pain of left knee Chaitanya Easton MD Procedures XR KNEE LEFT 4 OR MORE VIEWS [address] [place] [address] Referral ID Status Reason Start Date Expiration Date Visits V isits Requested Authorized [id number] Specialty 06/14/2021 1 1 Report Received Encounter Details Date Type Department Care Team Description 06/18/2021 Hospital Encounter [facility] Xray Chronic pain of left [address] [place] [address] Social History Tobacco Use Types [...] 3 04/24 mg tablet MOUTH EVERY DAY kfldrng-yhh-wimyg-tenof Take 1 Tablet by 90 Tablet 3 202012/10/2021 ALAFEN (GENVOYA) mouth daily for 90 [phone] mg days. tabletIndications: HIV infection itraconazole (SPORANOX) [...] Office Visit Infectious Disease Lilian Rushing MD [address] [place] [address], [address] [place] [address] (Wo rk) documented as [...] Lower Extremities Left Computed Radiography Specimen Impressions [facility] - 06/18/2021 11:48 EDT FINDINGS / IMPRESSION: * ??Left knee 4 views: Moderate joint ef fusion. Tricompartmental degenerative changes which are moderate to severe. Osteopenia. * ??Right knee 3 views: No significant o steophyte formation. Osteopenia. Narrative [facility] - 06/18/2021 11:48 EDT EXAM/TECHNIQUE: 06/18/2021 9:00 AM ??XR KNEE LEFT 4 OR MORE VIEWS, XR KNEE RIGHT 3 VIEWS 4 (accession [id number]), 3 (accession [id number]) views ?? HISTORY: ??left knee pain COMPARISON: None. Procedure Note Faustino Pereira MD - 06/18/2021 EXAM/TECHNIQUE: 06/18/2021 9:00 AM XR KNE E LEFT 4 OR MORE VIEWS, XR KNEE RIGHT 3 VIEWS 4 (accession [id number]), 3 (accession [id number]) views HISTORY: left knee pain COMPARISON: None. IMPRESSION FINDINGS / IMPRESSION: * Left knee 4 views: Moderate joint effu leigh ann. Tricompartmental degenerative changes which are moderate to severe. Osteopenia. * Right knee 3 views: No significant ost eophyte formation. Osteopenia. Performing Organization Address City/State/ZIP Code Phon e Number [facility] [place] documented in this encounter Visit Diagnoses Diagnosis Chronic pain of left knee Pain in joint, lower leg documented in this encounter Care Teams Education Director Relationship Specialty Start Date End Date Gil-Marcy Santos, PCP - General Family Medicine - Primary 1 11/13/18 PHP CONSULTANT Care [address] [place] [phone] documented as of this encounter
--- OUTSIDE RECORDS SUMMARY | 2022-03-13 20:34 | XMS_ITS | Encounter Summary ---
:1965 Author Organization [facility] Address [address] [place] [address] Care Team Providers Name Role Phone Marcy Alvarenga CIGAR HEAD PUNCHER Primary Care Provider [phone] Reason for Visit Reason Onset Date Comments Wound Infection 08/21/2020 Encounter Details Date Type Department Care Team Description 08/21/2020 Telephone [facility] Elizabeth Peguero MD Wound Infection [facility] [address] [place] [address] [address] [phone] [address] [place] [address] (Wo rk) Social History Tobacco Use Types [...] call , he is having continued symptoms, Snhitavyziigmn signed by Carly Clayton at 08/21/2020 14:29 [...] Visit Infectious Disease Lilian Rushing MD [address] [facility] [address] [place] [address] (Wo rk) documented as of this encounter Visit Diagnoses Diagnosis 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
--- OUTSIDE RECORDS SUMMARY | 2022-03-13 20:34 | XMS_ITS | Encounter Summary ---
:1965 Author Organization [facility] Address [address] [place] [address] Care Team Providers Name Role Phone Marcy Alvarenga BUCKLE SORTER Primary Care Provider Reason for Visit Reason Onset Date Comments Labs Only 02/14/2021 Pt called regarding lab orders that JL was to place Encounter Details Date Type Department Care Team Description 02/14/2021 Telephone [facility] - Lilian Rushing, Lab s Only ([place] [facility] Infectious Dise ase regarding lab orders [address] JL was to place) [place] [address] [facility] [place] [place] [address] Social History Tobacco Use Types [...] Visit Infectious Disease Lilian Rushing MD [address] [place] [address], [address] [place] [address] (Wo rk) documented as of this encounter Visit Diagnoses Diagnosis Coccidioidomycosis - Primary Coccidioidomycosis, unspecified documented in this encounter Care Teams Bicycle Repairman Relationship Specialty Start Date End Date Marcy Alvarenga, PCP - General Family Medicine - Primary 1 11/13/18 BUCKLE SORTER Care [address] [place] [phone] documented as of this encounter
--- OUTSIDE RECORDS SUMMARY | 2022-03-13 20:34 | XMS_ITS | Encounter Summary ---
:1965 Author Organization [facility] Address [address] [place] [address] Care Team Providers Name Role Phone Marcy Alvarenga PERSONAL CARE AIDE Primary Care Provider [phone] Reason for Visit Reason Comments Mass lft side of head-painful Encounter Details Date Type Department Care Team Description 08/17/2020 [facility] Krystle Monte NP Abscess (Primary Dx) [facility] [address] [facility] [place] [address] [address] [phone] [address] [place] [address] (Wo rk) Social History Tobacco Use Types [...] EDTAssociated Order(s): Incision and DrainagePost-Procedure Diagnose(s): Abscess [facility] Express Care Chief Complaint(s): Mass (lft side [...] to verify the correct patient, procedure, equipment, software support specialist and site/side marked as required. Type: abscess [...] no, have they had travel outside the [facility] in the past 14 days? (If no, see in NRC) no If yes, was it to an area that required quarantine? (If yes, see in ARC. If quarantine of 14 days has already been completed, see in NRC) *may be determined by RN/AIRLINE ATTENDANT or in discussion with available provider (CCA's can defer to Charge Nurse or Nurse they are working with to complete triage when appropriate) Reference Cross State Travel Map to see if the location falls within a low risk area (<400 cases per million): https://accd.[place].gov/covid-19/restart/elmnn-hadcr-fyclrq documented in this encounter Plan of Treatment Upcoming Encounters Date Type Specialty Care Team Description 04/14/2022 Office Visit Infectious Disease Lilian Rushing MD [address] [place] [address], [address] [place] [address] (Wo rk) Scheduled Orders Name Type Priority Associated Diagnoses Order S chedule BACTERIAL Microbiology Routine Abscess Ordered: 2019 CULTURE/SMEAR documented as of this encounter Procedures Procedure Name Priority Date/Time Associated Diagnosis Comme nts ROUTINE CULTURE - Routine 08/17/2020 17:16 Abscess Result s for this [facility] EDT procedure are i n the results [...] in this encounter Results ROUTINE CULTURE - [facility] (08/17/2020 17:16 EDT) Culture NEW MRSA RESULTS CALLED TO DAVID BUSH [facility] EXPR ESS CARE - [facility], 08/21/20 0924 [facility] 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 It is resistant to oxacillin, cephalosporins and other beta lactam antibiotics. SPECIMEN IS COMPROMISED. 36 HOURS FROM COLLECTION UNTI L RECEIPT IN THE LABORATORY. FASTIDIOUS ORGANISMS MAY NO T BE RECOVERED STAPHYLOCOCCUS SP STAPHYLOCOCCUS SP [facility] COAG POSITIVE - [facility] COAG POS [facility] QUANT - [facility] MODERATE [facility] Specimen Head Organism Antibiotic Method Susceptibility Staphylococcus sp coag Azithromycin GRAM POSITIVE Resistant pos SUSCEPTIBILITY - [facility] Staphylococcus sp coag Clindamycin GRAM POSITIVE <=0.25: S usceptible pos SUSCEPTIBILITY - [facility] Staphylococcus sp coag Cefazolin GRAM POSITIVE Resistant pos SUSCEPTIBILITY - [facility] Staphylococcus sp coag Erythromycin GRAM POSITIVE >=8: Resi stant pos SUSCEPTIBILITY - [facility] Staphylococcus sp coag Levofloxacin GRAM POSITIVE <=0.12: S usceptible pos SUSCEPTIBILITY - [facility] Staphylococcus sp coag Oxacillin GRAM POSITIVE >=4: Resi stant pos SUSCEPTIBILITY - [facility] Staphylococcus sp coag Trimethoprim-Sulfame GRAM POSITIVE <=10 : Susceptible pos thoxazole SUSCEPTIBILITY - [facility] Staphylococcus sp coag Tetracycline GRAM POSITIVE <=1: Susc eptible pos SUSCEPTIBILITY - [facility] Staphylococcus sp coag Vancomycin GRAM POSITIVE 1: Suscep tible pos SUSCEPTIBILITY - [facility] Staphylococcus sp coag Linezolid GRAM POSITIVE 2: Suscep tible pos SUSCEPTIBILITY - [facility] Comment: Tetracycline susceptible Coa g positive staph is also susceptible to doxycycline a nd minocycline. Comment: GROWTH ON SIDE OF HEAD CELL BLACK Performing Organization Address City/[facility] Code Phon e Number [facility] [address] [place] [address] GRAM SMEAR (08/17/2020 17:16 EDT) GRAM STAIN - [facility] TWO SWABS RECEIVED [facility] GRAM STAIN GRAM POSITIVE COCCI FEW [facility] - [facility]ENTER LAB WBC NO [facility] Specimen Head Performing Organization Address [facility] Phon e Number [facility] [address] [place] [address] [place] DRAIN SKIN ABSCESS SIMPLE, HC - INCISION [...] verify the correct patient, procedure, equipmen t, software support specialist and site/side marked as required. Type: abscess [...] te documented in this encounter Care Teams Treating Machine Operator Relationship Specialty Start Date End Date Gil-Marcy Santos, PCP - General Family Medicine - Primary 1 11/13/18 PERSONAL CARE AIDE Care [address] [place] [address] documented as of this encounter
--- OUTSIDE RECORDS SUMMARY | 2022-03-13 20:34 | XMS_ITS | Encounter Summary ---
:1965 Author Organization [facility] Address [address] [place] [address] Care Team Providers Name Role Phone Marcy Alvarenga ABRASIVE MIXER Primary Care Provider [phone] Reason for Referral Radiology Services (Routine/Next Available) - Specialty Report Received Specialty Diagnoses / Procedures Referred By Contact Refer red To Contact Diagnoses Chronic pain of left knee Chaitanya Easton MD Procedures XR KNEE RIGHT 3 VIEWS [address] [place] [address] Referral ID Status Reason Start Date Expiration Date Visits V isits Requested Authorized [id number] Specialty 06/14/2021 1 1 Report Received adiology Services (Routine/Next Available) - Specialty Report Received Specialty Diagnoses / Procedures Referred By Contact Refer red To Contact Diagnoses Chronic pain of left knee Chaitanya Easton MD Procedures XR KNEE LEFT 4 OR MORE VIEWS [address] [place] [address] Referral ID Status Reason Start Date Expiration Date Visits V isits Requested Authorized [id number] Specialty 06/14/2021 1 1 Report Received Reason for Visit Reason Onset Date Comments Knee Pain 06/13/2021 Encounter Details Date Type Department Care Team Description 06/13/2021 Orders Only [facility] [place] ain of left Total Joint Program - Frankie Tavares knee (Primary Dx) [address] Vito Plasencia, So [facility] [address] [phone] Social History Tobacco Use Types Packs/Day Years [...] Office Visit Infectious Disease Lilian Rushing MD [address] [place] [address], [address] [place] [address] (Wo rk) documented as of this encounter Results XR KNEE RIGHT 3 VIEWS (06/18/2021 9:30 EDT) Anatomical Region Laterality Modality Lower Extremities Right Computed Radiography Specimen Impressions [facility] - 06/18/2021 11:48 EDT FINDINGS / IMPRESSION: * ??Left knee 4 views: Moderate joint ef fusion. Tricompartmental degenerative changes which are moderate to severe. Osteopenia. * ??Right knee 3 views: No significant o steophyte formation. Osteopenia. Narrative [facility] - 06/18/2021 11:48 EDT EXAM/TECHNIQUE: 06/18/2021 9:00 AM ??XR KNEE LEFT 4 OR MORE VIEWS, XR KNEE RIGHT 3 VIEWS 4 (accession [id number]), 3 (accession [id number]) views ?? HISTORY: ??left knee pain COMPARISON: None. Procedure Note Faustino Pereira MD - 06/18/2021 EXAM/TECHNIQUE: 06/18/2021 9:00 AM XR KNE E LEFT 4 OR MORE VIEWS, XR KNEE RIGHT 3 VIEWS 4 (accession [id number]), 3 (accession [id number]) views HISTORY: left knee pain COMPARISON: None. IMPRESSION FINDINGS / IMPRESSION: * Left knee 4 views: Moderate joint effu leigh ann. Tricompartmental degenerative changes which are moderate to severe. Osteopenia. * Right knee 3 views: No significant ost eophyte formation. Osteopenia. Performing Organization Address City/State/ZIP Code Phon e Number [facility] [place] XR KNEE LEFT 4 OR MORE VIEWS (06/18/2021 9:29 EDT) Anatomical Region Laterality Modality Lower Extremities Left Computed Radiography Specimen Impressions [facility] [place] - 06/18/2021 11:48 EDT FINDINGS / IMPRESSION: * ??Left knee 4 views: Moderate joint ef fusion. Tricompartmental degenerative changes which are moderate to severe. Osteopenia. * ??Right knee 3 views: No significant o steophyte formation. Osteopenia. Narrative [facility] - 06/18/2021 11:48 EDT EXAM/TECHNIQUE: 06/18/2021 9:00 AM ??XR KNEE LEFT 4 OR MORE VIEWS, XR KNEE RIGHT 3 VIEWS 4 (accession [id number]), 3 (accession [id number]) views ?? HISTORY: ??left knee pain COMPARISON: None. Procedure Note Faustino Pereira MD - 06/18/2021 EXAM/TECHNIQUE: 06/18/2021 9:00 AM XR KNE E LEFT 4 OR MORE VIEWS, XR KNEE RIGHT 3 VIEWS 4 (accession [id number]), 3 (accession [id number]) views HISTORY: left knee pain COMPARISON: None. IMPRESSION FINDINGS / IMPRESSION: * Left knee 4 views: Moderate joint effu leigh ann. Tricompartmental degenerative changes which are moderate to severe. Osteopenia. * Right knee 3 views: No significant ost eophyte formation. Osteopenia. Performing Organization Address City/State/ZIP Code Phon e Number [facility] documented in this encounter Visit Diagnoses Diagnosis Chronic pain of left knee - Primary Pain in joint, lower leg Chronic pain of left knee Pain in joint, lower leg Chronic pain of left knee Pain in joint, lower leg documented in this encounter Care Teams Apartment Maintenance Manager Relationship Specialty Start Date End Date Gil-Marcy Santos, PCP - General Family Medicine - Primary 1 11/13/18 ABRASIVE MIXER Care [address] [place] [phone] documented as of this encounter
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
--- OUTSIDE RECORDS SUMMARY | 2022-03-13 20:34 | XMS_ITS | Encounter Summary ---
:1965 Author Organization [facility] Address [address] [place] [address] Care Team Providers Name Role Phone Marcy Alvarenga INSTRUMENT WORKER Primary Care Provider [phone] Reason for Visit Reason Onset Date Comments Appointment Related 06/18/2021 N/S appointment - ne eds to be seen to f/u HIV please schedule with Rohit Rushing MD Encounter Details Date Type Department Care Team Description 06/18/2021 Telephone [facility] - Real Shana, Rain ointment Related (N/S [facility] Pulmonology RN appointment - needs to [address] be seen to [place] [address] please schedule with [phone] Rohit Rushing MD) Social History Tobacco Use [...] Visit Infectious Disease Lilian Rushing MD [address] [facility] [address] [place] [address] (Wo rk) documented as of this encounter Visit Diagnoses Not on filedocumented in this encounter Care Teams Program Trainer Relationship Specialty Start Date End Date Gil-Marcy Santos, PCP - General Family Medicine - Primary 1 11/13/18 INSTRUMENT WORKER Care [address] [place] [address] 2 [place] [address] documented as of this encounter
--- OUTSIDE RECORDS SUMMARY | 2022-03-13 20:34 | XMS_ITS | Encounter Summary ---
:1965 Author Organization [facility] Address [address] [place] [address] Care Team Providers Name Role Phone Marcy Alvarenga LABEL PRINTER Primary Care Provider Encounter Details Date Type Department Care Team Description 07/03/2021 Documentation Visit [facility] - Lilian Rushing MD [facility] [place] Dise ase [address] [facility] 130 [facility], [address] [place], [place] [address] [place] [address] [phone] (Wo rk) Social History Tobacco Use [...] call with Dr. Adria Dixon from the [facility] [place]. I had spoken to him earlier about [...] have a better idea of what the usp condition of the knee will be after [...] get him into the trial for Olorofim. (https://clinicaltrials.gov/ct2/show/ETS45081034) documented in this encounter Plan of Treatment Upcoming Encounters Date Type Specialty Care Team Description 04/14/2022 Office Visit Infectious Disease Lilian Rushing MD [address] [facility] [address] [place] [address] (Wo rk) documented as of this encounter Visit Diagnoses Not on filedocumented in this encounter Care Teams Watch Engine Operator Relationship Specialty Start Date End Date Gil-aMrcy Santos, PCP - General Family Medicine - Primary 1 11/13/18 LABEL PRINTER Care [address] [place] [address] 2 [place] [address] documented as of this encounter
--- OUTSIDE RECORDS SUMMARY | 2022-03-13 20:34 | XMS_ITS | Encounter Summary ---
:1965 Author Organization [facility] Address [address] [place] [address] Care Team Providers Name Role Phone Marcy Alvarenga RAT FARMER Primary Care Provider [phone] Encounter Details Date Type Department Care Team Description 12/24/2020 Lab Requisition [facility] Outr Resulting Lab, Pathology & Laboratory Provider [facility] [address] [place] [id number] Social History Tobacco Use Types Packs/Day Years [...] Disease Lilian Rushing MD [address] [facility] [address] [place] [address] (Wo rk) documented as of this encounter Procedures Procedure Name Priority Date/Time Associated Diagnosis Comme nts ANAEROBE CULTURE, Routine 12/24/2020 11:05 Result s for this REFERENCE EST procedure are i n the results section. documented in this encounter Results ANAEROBE CULTURE, REFERENCE (12/24/2020 11:05 EST) Pathologist Sig nature Organism ID No Anaerobes [facility] Isolated LABORATORY SERVICES Specimen Fluid - Entire knee region (body structu re) Performing Organization Address City/State/ZIP Code Phon e Number [facility] [address] [place] [address] SERVICES documented in this encounter Visit Diagnoses Not on filedocumented in this encounter Additional Health Concerns Infection Onset Date Last Indicated Resolved Time MRSAComment: Hx of MIRU-Ruuo-60/23/2020 08/29/2021 08/29/20 21 C. Stoner 12/31/21 documented as of this encounter Care Teams Track Broom Operator Relationship Specialty Start Date End Date Gil-Marcy Santos, PCP - General Family Medicine - Primary 1 11/13/18 RAT FARMER Care [address] [place] [address] [address] [place] [address] documented as of this encounter
--- OUTSIDE RECORDS SUMMARY | 2022-03-13 20:34 | XMS_ITS | Encounter Summary ---
:[address] [facility] Address [address] [place] [address] Care Team Providers Name Role Phone Marcy Alvarenga PATIENT RELATIONS LIAISON Primary Care Provider Reason for Visit Reason Onset Date Comments Other 02/20/2021 returning Aissatou's call Encounter Details Date Type Department Care Team Description 02/20/2021 Telephone [facility] - Lilian Rushing, [facility] (returning Aissatou's [facility] Dermatology MD call) [address] [place], [place] [id number] [place] [address], [place] [address] Social History Tobacco Use Types [...] EDT Pt returning Aissatou's call. CB # [phone] signed by Jeniffer Leiva at 02/22/2021 15:34 [...] Description 04/14/2022 Office Visit Infectious Disease Lilian Ruhsing MD [address] [place] [address], [address] [place] [address] (Wo rk) documented as of this encounter Visit Diagnoses Not on filedocumented in this encounter Care Teams Retail Customer Service Representative Relationship Specialty Start Date End Date Gil-Marcy Santos, PCP - General Family Medicine - Primary 1 11/13/18 PATIENT RELATIONS LIAISON Care [address] [place] [address] 2 [place] [address] documented as of this encounter
--- OUTSIDE RECORDS SUMMARY | 2022-03-13 20:34 | XMS_ITS | Encounter Summary ---
:1965 Author Organization [facility] Address [address] [place] [address] Care Team Providers Name Role Phone Marcy Alvarenga PRESIDENTIAL HELICOPTER CREW CHIEF Primary Care Provider [phone] Reason for Visit Reason Onset Date Comments Results 12/05/2020 pos gonorrhea Encounter Details Date Type Department Care Team Description 12/05/2020 Telephone [facility] - Aissatou Iraheta RN Results (pos gonorrhea) [facility] [place]ious Dise ase [address] [place] [address] [place], [place] [address] Social History Tobacco Use Types Packs/Day Years [...] 500mg. ??We will need to do a ziht-cs-sisj 7-14 days after treatment. documented in this encounter Plan of Treatment Upcoming Encounters Date Type Specialty Care Team Description 04/14/2022 Office Visit Infectious Disease Lilian Rushing MD [address] [facility] [address] [place] [address] (Wo rk) documented as of this encounter Visit Diagnoses Not on filedocumented in this encounter Care Teams Farmworker Relationship Specialty Start Date End Date Gil-Marcy Santos, PCP - General Family Medicine - Primary 1 11/13/18 PRESIDENTIAL HELICOPTER CREW CHIEF Care [address] [place] [phone] documented as of this encounter
--- OUTSIDE RECORDS SUMMARY | 2022-03-13 20:34 | XMS_ITS | Encounter Summary ---
:1965 Author Organization [facility] Address [address] [place] [address] Care Team Providers Name Role Phone Marcy Alvarenga INSTRUMENT TESTER Primary Care Provider [phone] Reason for Visit Reason Comments Follow-up HIV, Coccidioidomycosis Encounter Details Date Type Department Care Team Description 06/18/2021 Office Visit [facility] - Lilian Rushing Asy mptomatic HIV infection ([facility]) (Primary Dx); [facility] Infectious MD Coccidioidomycosis; Disease [address] Arthritis of left knee; [address], [address] Screening for diabetes mellitus; [place] [address] [place], [place] Medication monitoring encoun ter; [phone] fisher line (current) use of antibiotics; [phone] Gonorrhea of ph arynx (Work) Social History [...] Sig Dispensed Refills Start Date End Date fudcuoi-rlr-mcuyr-tenof Take 1 Tablet by 90 Tablet 3 202012/10/2021 ALAFEN (GENVOYA) mouth daily for 90 [phone] mg days. tabletIndications: HIV infection documented in this encounter Progress Notes Aissatou Morales RN - 06/18/2021 1300 EDT Patient properly identified by name and . Blood drawn via butterfly needle from R [facility] perprotocol. DSD applied. [place]inn x2, red and purple x4 tube(s) sent to the lab per order. Patient tolerated the procedure well AISSATOU MORALES RN 06/18/2021 14:33 [facility] Infectious Disease Lilian Merino MD - 06/18/2021 [...] visit, I spoke to Dr. Laura at [facility] and we discussed referral to [facility] Ortho for continued management of the knee given the complexities and that he will likely eventually need a TKA. I also spoke to the [facility] in [place]. They recommended [...] or rashes. He drove his parents to [place] for a wedding recently - says that's [...] but lost the card. Advised to call [facility] for replacement card and then callus to [...] A1c ??? Itraconazole, S ??? Miscellaneous Test, Pyrites ??? Miscellaneous Test, [facility] Orders Placed This Visit and Additions to the Medication List Medications ??? xesahmf-acr-dslic-tenof ALAFEN (GENVOYA) [phone] mg tablet Sig: Take 1 Tablet by [...] of the visit. Lilian Rushing MD, MPH [facility] Infectious Disease Office: [phone] Cc: PCP, Dr. Easton at [facility] documented in this encounter Plan of Treatment Upcoming Encounters Date Type Specialty Care Team Description 04/14/2022 Office Visit Infectious Disease Lilian Rushing MD [address] [place] [address], [address] [place] [phone] (Wo rk) Scheduled Orders Name Type Priority Associated Diagnoses Order S chedule COMPLETE BLOOD COUNT Lab Routine Asymptomatic HIV inf ection Ordered: AND DIFFERENTIAL ([facility]) 06/18/2021 Coccidioidomycosis HIV 1 RNA Lab Routine Asymptomatic HIV infection O rdered: QUANTITATION ([facility]) 06/18/2021 SYPHILIS SEROLOGY Lab Routine Asymptomatic HIV infect ion Ordered: ([facility]) 06/18/2021 URINE SEDIMENT Lab Routine Asymptomatic HIV infection Ordered: (MICRO) WITH REFLEX ([facility]) 06/18/20 21 TO CULTURE ITRACONAZOLE, S Lab Routine Coccidioidomycosis Ordere d: 06/18/2021 MISCELLANEOUS TEST, Lab Routine Asymptomatic HIV infe ction Ordered: [place] ([facility]) 06/18/2021 Arthritis of left knee MISCELLANEOUS TEST, Lab Routine Coccidioidomycosis Or dered: [place] 06/18/2021 N. GONORRHOEAE AND Microbiology Routine Gonorrhea of pharynx O rdered: CHLAMYDIA 06/18/2021 TRACHOMATIS, MISC SITES, AMPLIFIED RNA documented as of this encounter Procedures Procedure Name Priority Date/Time Associated Comments Diagnosis URINALYSIS - [facility] Routine 06/18/2021 14:20 Asymptomatic HIV Re sults for this EDT infection ([facility]) procedur e are in the results section. MISCELLANEOUS TEST, [place] Routine 06/18/2021 14:20 Asymptomatic HIV Results for this EDT infection ([facility]) procedur e are in the results section. IMMUNODEFICIENCY PANEL - Routine 06/18/2021 14:03 Asymptomatic HIV Results for this INTERIM EDT infection ([facility]) procedur e are in the results section. COMPLETE BLOOD COUNT Routine 06/18/2021 14:03 Asymptomatic HIV Results for this WITH DIFFERENTIAL (AUTO) EDT infection ([facility]) procedure are in the results section. RAPID PLASMA REAGIN Routine 06/18/2021 14:03 Asymptomatic HIV Results for this (RPR) WITH REFLEX, S EDT infection ([facility]) procedure are in the results section. MISCELLANEOUS TEST, [place] Routine 06/18/2021 14:03 Asymptomatic HIV Results for this EDT infection ([facility]) procedur e are in the results section. MISCELLANEOUS TEST, [place] Routine 06/18/2021 14:03 Asymptomatic HIV Results for this EDT infection ([facility]) procedur e are in the [...] documented in this encounter Results MISCELLANEOUS TEST, [place] (06/18/2021 14:20 EDT) [facility] MISCELLANEOUS TEST - SEE BELOW () [facility] Comment: [facility] Test ? Result ?? Flag ??Unit [...] due to specimen source. Test Performed by: [address] [address] Professor Of Biochemistry: Pritesh Mcgee M.D. Ph.D.; CLIA# [id number] ? Test ? Result ?? Flag ??Unit [...] use in medical-legal applications. Test Performed by: [facility] [place] - [address] [address] Professor Of Biochemistry: Pritesh Mcgee M.D. Ph.D.; CLIA# [id number] CONTAINS ADDITIONAL TEST RESULTS Specimen Performing Organization Address City/State/ZIP Code Phon e Number [facility] [address] [place] [address] URINALYSIS - [facility] (06/18/2021 14:20 EDT) URINE APPEARANCE - Clear CLEAR [facility] URINE BILIRUBIN - Negative NEGATIVE [facility] DIPSTICK - [facility] URINE BLOOD - [facility] Negative NEG [facility] URINE COLOR - [facility] Yellow YELLOW [facility] URINE GLUCOSE - Negative NEGATIVE [facility] DIPSTICK [facility] URINE KETONE - [facility] Negative NEGATIVE [facility] URINE LEUK ESTERASE Negative NEG [facility] URINE NITRITE - Negative NEG [facility] DIPSTICK [facility] URINE PH - [facility] 7.5 4.0 - 8.0 [facility] URINE PROTEIN - Negative [facility]G [facility] URCULTIF+? - [facility] No Culture [facility] IndicatedComment: [facility] CULTURE IS NOT INDICATED, BASED ON RESULTS OF THE URINALYSIS URINE SPECIFIC 1.015 1.001 - 1.035 [facility] GRAVITY [facility] URINE UROBILINOGEN - 0.2 0.2 - 1.0 [facility] DIPSTICK [facility] Specimen Performing Organization Address City/State/ZIP Code Phon e Number [facility] [address] [place] [address] MISCELLANEOUS TEST, [place] (06/18/2021 14:03 EDT) Pathologist [facility] MISCELLANEOUS TEST - SEE BELOW () [facility] Comment: [facility] Coccidioides Ab Screen w/Reflex, S ??Coccidioides Ab Screen: ?Reactive ? Confirmatory testing by complement fixation and immunodiffusion has been ordered. ADDITIONAL INFORMATION ------ This test has been modified from the nurse practitioner's instructions. Its performance characteristics were determined by [facility] in a manner consistent with [...] (e.g., dayday al culture) Test Performed by: [place] [address] Professor Of Biochemistry: Pritesh Mcgee M.D. Ph.D.; IA# [id number] 06/25/21 1128: ??Amended Report ??MISC TEST previously reported as: SEE BELOW ? Specimen Performing Organization Address City/State/ZIP Code Phon e Number [facility] [address] [place] [address] MISCELLANEOUS TEST, [place] (06/18/2021 14:03 EDT) [facility] MISCELLANEOUS TEST - SEE BELOW () [facility] Comment: [facility] Test ?Result ?Flag ??Unit ?RefValue ------ Itraconazole, S ? 2.5 ? mcg/mL ? REFERENCE VALUE ------ >0.5 (localized infection), >1.0 (systemic infection) ??Hydroxyitraconazole ? 2.1 ? mcg/mL ? REFERENCE VALUE ------ No therapeutic range established; activity and serum concentration are similar to parent drug. ADDITIONAL INFORMATION ------ This test was developed and its performance characteri stics determined by [facility] in a manner consistent with CLIA requirements. This test has not been cleared or approv ed by the U.S. Food and Drug Administration. Test Performed by: [facility] [place] [address] Professor Of Biochemistry: Pritesh Mcgee M.D. Ph.D.; CLIA# [id number] Specimen Performing Organization Address [facility] Phon e Number [facility] [address] [place] [address] (ABNORMAL) IMMUNODEFICIENCY PANEL - [place] (06/18/2021 14:03 EDT) 4/8 RATIO 0.84 (A) >=0.90 [facility] Comment: MED CENTER LAB Test performed or referred by The [address] [address] CD3 76 56 - 84 % [facility] CD4 34 31 - 64 % [facility] CD8 - [facility] 40 (A) 9 - 39 % [facility] ABSOLUTE CD3 [phone],[id number] [facility] Cells/uL [facility] CENTER LAB ABSOLUTE CD4 591 488-1,734 [facility] Cells/uL [facility] TOTCD8 700 154-1,097 [facility] Cells/uL [facility] Specimen Performing Organization Address City/[facility] Phon e Number [facility] [address] [place] [address] HIV 1 RNA QUANTITATION (06/18/2021 14:03 EDT) Pathologist [facility] HIV-1 RNA QUANT - Undetected Undetected [facility] Comment: [facility] INFCE Result Units: copies/mL Result in log copies/mL is Undetected. ADDITIONAL INFORMATION ------ The quantification range of this assay is 20 to 10,000 ,000 copies/mL (1.30 log to 7.00 log copies/mL). Testing wa s performed using the rafael HIV-1 test ([employer] with the rafael Sharetribe0 System. This test has been modified from the nurse practitioner's instructions. Its performance characteristics were determined by [facility] in a manner consistent with CLIA requirements. This test has not been cleared or approv ed by the U.S. Food and Drug Administration. Test Performed by: [place] [address] Professor Of Biochemistry: Pritesh Mcgee M.D. Ph.D.; CLIA# [id number] Specimen Performing Organization Address City/[facility]/ZIP Code Phon e Number [facility] [address] [place] [address] RAPID PLASMA REAGIN (RPR) WITH REFLEX, S (06/18/2021 14:03 EDT) Pathologist [facility] APID PLASMA REAGIN - Nonreactive NEG [facility] CENTER LAB Specimen Performing Organization Address City/[facility]/ZIP Code Phon e Number [facility] [address] [place] [address] (ABNORMAL) COMPLETE BLOOD COUNT WITH DIFFERENTIAL (AUTO) (06/18/2021 14:03 EDT) Pathologist [facility] ABSOLUTE NEUTROPHIL 5.0 2.2 - 8.85 [facility] COUN - [facility] 10e3/uL CENTER LAB BASO # - [facility] 0.02 0.01 - 0.11 [facility] 10e/uL CENTER LAB BASO % - [facility] 0 0 - 2 % [facility] EOS # - [facility] 0.10 0.03 - 0.61 [facility] 10e3/ul CENTER LAB EOS % - [facility] 1 0 - 5 % [facility] GRAN % - [facility] 64.0 40 - 80 % [facility] HEMATOCRIT - [facility] 35.5 (L) 39.5 - 50.2 % [facility] HEMOGLOBIN - [facility] 11.8 (L) 13.8 - 17.3 [facility] g/dl CENTER LAB IG# - [facility] 0.04 0 - 0.7 10e3/uL [facility] IG% - [facility] 0.5 0 - 0.9 % [facility] LYMPH # - [facility] 1.8 1.09 - 3.3 [facility] 10e3/ul [place] [facility] LYMPH% - [facility] 22.7 20 - 40 % [facility] MEAN CORPUSCULAR HGB 28.5 27.6 - 33.0 pg [facility] ME D - [facility]ENTER LAB MEAN CORPUSCULAR HGB 33.2 32.8 - 36.4 [facility] CONC - [facility] g/dL CENTER LAB MEAN CELL VOLUME - 85.7 81 - 95 fl [facility] MONO # - [facility] 0.9 (H) 0.1 - 0.8 [facility] 10e3/uL [place] [facility] MONO% - [facility] 11.2 0 - 12 % [facility] PLATELET COUNT 294 141 - 377 [facility] 10e3/ul [place] [facility] RED BLOOD COUNT - 4.14 (L) 4.36 - 5.78 [facility] 10e6/ul [place] [facility] RED CELL DISTRI WIDTH 14.7 <14.2 % [facility] WHITE BLOOD COUNT - 7.7 4.0 - 10.4 [facility] 10e3/ul [place] [facility] Specimen Performing Organization Address City/State/ZIP Code Phon e Number [facility] [address] [place] [address] HEMOGLOBIN A1C (06/18/2021 14:03 EDT) Hemoglobin A1c 5.6 4.0 - 6.0 % [facility] Comment: [facility] > or =18 years: ??Increased risk for diabetes (prediabetes): 5.7-6.4% Diabetes: > or =6.5% Therapeutic goals for glycemic control (ADA) Adults: - Goal of therapy: <7.0% HbA1c - Action suggested: >8.0% HbA1c Pediatric patients: - Toddlers and preschoolers: <8.5% (but >7.5%) - School age (6-12 years): <8% - Adolescents and young adults (13-19 years): <7.5% Est Avg Glucose 114 mg/dL [facility] Specimen Blood - Venous blood (substance) Performing Organization Address [facility] Phon e Number [facility] MED [place] [facility] [address] [place] [address] (ABNORMAL) LIPID PROFILE (INCLUDES CHOLESTEROL, TRIGLYCERIDES, HDL, LDL) (06/18/2021 14:03 EDT) Triglyceride 50 <150 mg/dL [facility] Comment: [facility] Adult: Normal: ?<150 mg/dl ? Borderline High: 150-199 mg/dl ? High: ?200-499 mg/dl ? Very High: >ik=942 Cholesterol 123 <200 mg/dL [facility] Comment: [facility] Acceptable: ??<200 Borderline: ??200-239 High: ?> or = 240 Chol/HDL Ratio 1.8 0 - 5.0 [facility] Comment: [facility] DESIRABLE RATIO IS LESS THAN 4.1 PATIENTS ARE CONSIDERED AT RISK: WOMEN RATIO >5 MEN RATIO >6 FASTING? - [facility] Unknown [facility] HDL 65 (H) 40 - 60 mg/dL [facility] Comment: [facility] ?? Reference Range Low: ? < 40 ??mg/dL Normal: ??40-60 mg/dL High: ?>= 60 mg/dL LDL CHOLESTEROL - 48 (L) 60 - 100 [facility] mg/dL [facility] Non HDL Cholesterol 58 mg/dl [facility] Comment: [facility] Desirable: ?Less than 130 Borderline High: ??130-159 High: ? 160-189 Very High: ?Greater than or equal to 190 Specimen Blood - Venous blood (substance) Performing Organization Address [facility] Phon e Number [facility] [address] [place] [address] COMPREHENSIVE METABOLIC PANEL (CMP) (06/18/2021 14:03 EDT) ALBUMIN - [facility] 3.7 3.4 - 4.9 [facility] g/dL [facility] ALKALINE 83 38 - 126 U/L [facility] PHOSPHATASE - [facility] BILIRUBIN TOTAL 0.3 0.2 - 1.3 [facility] mg/dL [facility] BUN - [facility] 19 10 - 26 mg/dL [facility] CALCIUM - [facility] 8.7 8.5 - 10.5 [facility] mg/dL [facility] Chloride 102 96 - 110 [facility] mmol/L [facility] CO2 Total 28 21 - 32 mEq/L [facility] CREATININE 0.81 0.66 - 1.25 [facility] mg/dL [facility] eGFR >60 [facility] Comment: [facility] LAB Chronic renal impairment is defined as GFR <60 Multiply result by 1.210 for patients . Anion Gap 9 0 - 18 [facility] GLUCOSE - [facility] 91 70 - 100 [facility] mg/dL [facility] Potassium 4.0 3.5 - 5.0 [facility] mEq/L [facility] Sodium 139 136 - 145 [facility] mEq/L [facility] TOTAL PROTEIN - 6.6 6.2 - 8.2 [facility] gm/dL [facility] SGOT/AST - [facility] 30 17 - 59 U/L [facility] SGPT/ALT - [facility] 27 0 - 50 U/L [facility] Specimen Blood - Venous blood (substance) Performing Organization Address City/State/ZIP Code Phon e Number [facility] [address] [place] [address] documented in this encounter Visit Diagnoses Diagnosis Asymptomatic HIV infection (HCC) - Prima ry Asymptomatic human immunodeficiency viru s (HIV) infection status Coccidioidomycosis Coccidioidomycosis, unspecified Arthritis of left knee Unspecified arthropathy, lower leg Screening for diabetes mellitus Medication monitoring encounter Encounter for therapeutic drug monitorin g assisted (current) use of antibiotics Gonorrhea of pharynx Gonococcal infection of pharynx documented in this encounter Discontinued Medications Medication Sig Discontinue Reason Start Date End Date svgoxtc-lev-heqte-tenof Take 1 Tab by mouth Reorder 12/03/2020 06/18/2021 ALAFEN (GENVOYA) daily for 90 days. [phone] mg tabletIndications: HIV infection documented as of this encounter Care Teams Incendiaries Supervisor Relationship Specialty Start Date End Date Marcy Alvarenga, PCP - General Family Medicine - Primary 1 11/13/18 INSTRUMENT TESTER Care [address] [place] [phone] documented as of this encounter
--- OUTSIDE RECORDS SUMMARY | 2022-03-13 20:34 | XMS_ITS | Encounter Summary ---
:1965 Author Organization [facility] Address [address] [place] [address] Care Team Providers Name Role Phone Marcy Alvarenga METAL FURNACE OPERATOR Primary Care Provider [phone] Encounter Details Date Type Department Care Team Description 02/15/2021 Results Only [facility] Lilian Rushing MD Infectious Disease [address], [address] [place], [place] [address] [place] [phone] (Wo rk) Social History Tobacco Use [...] Visit Infectious Disease Lilian Rushing MD [address] [place] [address], [address] [place] [phone] (Wo rk) documented as of this encounter Procedures Procedure Name Priority Date/Time Associated Comments Diagnosis MISCELLANEOUS TEST, Routine 02/15/2021 16:54 Resu lts for this [place] EDT procedure are i n the results section. COMPREHENSIVE Routine 02/15/2021 16:54 Results fo r this METABOLIC PANEL (CMP) EDT proced ure are in the results section. documented in this encounter Results MISCELLANEOUS TEST, [place] (02/15/2021 16:54 EDT) [facility] MISCELLANEOUS TEST - SEE BELOW () [facility] Comment: [facility] Test ?Result ?Flag ??Unit ?RefValue ------ Itraconazole, S ? 2.3 ? mcg/mL ? REFERENCE VALUE ------ >0.5 (localized infection), >1.0 (systemic infection) ??Hydroxyitraconazole ? 1.7 ? mcg/mL ? REFERENCE VALUE ------ No therapeutic range established; activity and serum concentration are similar to parent drug. ADDITIONAL INFORMATION ------ This test was developed and its performance characteri stics determined by [facility] in a manner consistent with CLIA requirements. This test has not been cleared or approv ed by the U.S. Food and Drug Administration. Test Performed by: [facility] [place] [address] Belt Buckle Maker: Pritesh Mcgee M.D. Ph.D.; CLIA# [id number] Specimen Performing Organization Address City/State/ZIP Code Phon e Number [facility] [address] [place] [address] COMPREHENSIVE METABOLIC PANEL (CMP) (02/15/2021 16:54 EDT) ALBUMIN - [facility] 4.0 3.4 - 4.9 [facility] g/dL [facility] ALKALINE 90 38 - 126 U/L [facility] PHOSPHATASE - [facility] BILIRUBIN TOTAL 0.2 0.2 - 1.3 [facility] mg/dL [facility] BUN - [facility] 21 10 - 26 mg/dL [facility] CALCIUM - [facility] 9.6 8.5 - 10.5 [facility] mg/dL [facility] Chloride 99 96 - 110 [facility] mmol/L [facility] CO2 Total 29 21 - 32 mEq/L [facility] CREATININE 1.03 0.66 - 1.25 [facility] mg/dL [facility] eGFR >60 [facility] Comment: MED CENTER LAB Chronic renal impairment is defined as GFR <60 Multiply result by 1.210 for patients . Anion Gap 12 0 - 18 [facility] GLUCOSE - [facility] 90 70 - 100 [facility] mg/dL [facility] Potassium 4.6 3.5 - 5.0 [facility] mEq/L [facility] Sodium 140 136 - 145 [facility] mEq/L [facility] TOTAL PROTEIN - 7.2 6.2 - 8.2 [facility] gm/dL [facility] SGOT/AST - [facility] 23 17 - 59 U/L [facility] SGPT/ALT - [facility] 20 0 - 50 U/L [facility] Specimen Narrative [facility] - 021 18:50 EDT Does PT Have a Latex Allergy? NO Performing Organization Address City/State/ZIP Code Phon e Number [facility] [address] [place] [address] documented in this encounter Visit Diagnoses Not on filedocumented in this encounter Care Teams Thermal Spray Operator Relationship Specialty Start Date End Date Gil-Marcy Santos, PCP - General Family Medicine - Primary 1 11/13/18 METAL FURNACE OPERATOR Care [address] [place] [phone] documented as of this encounter
--- OUTSIDE RECORDS SUMMARY | 2022-03-13 20:34 | XMS_ITS | Encounter Summary ---
:1965 Author Organization [facility] Address [address] [place] [address] Care Team Providers Name Role Phone Marcy Alvarenga LUNCHEONETTE MANAGER Primary Care Provider [phone] Encounter Details Date Type Department Care Team [...] Visit Infectious Disease Lilian Rushing MD [address] [facility], [address] [place] [address] (Wo rk) documented as of this encounter Visit Diagnoses Not on filedocumented in this encounter Care Teams Head Athletic Trainer Relationship Specialty Start Date End Date Marcy Alvarenga, PCP - General Family Medicine - Primary 1 11/13/18 LUNCHEONETTE MANAGER Care [address] [facility] [address] [place] [address] documented as of this encounter
--- OUTSIDE RECORDS SUMMARY | 2022-03-13 20:34 | XMS_ITS | Encounter Summary ---
:1965 Author Organization [facility] Address [address] [place] [address] Care Team Providers Name Role Phone Marcy Alvarenga SOUND RECORDIST Primary Care Provider [phone] Reason for Visit Reason Comments Follow-up 3m f/u HIV Encounter Details Date Type Department Care Team Description 06/04/2020 Office Visit [facility] - Lilian Rushing Asy mptomatic HIV infection ([facility]) (Primary Dx); [facility] Infectious MD Encounter for immunization; Disease [address] [facility] Medication monitoring encounter [address] [facility] [address], [address] [place] [address] [place] [phone] Social History Tobacco Use Types Packs/Day [...] Sig Dispensed Refills Start Date End Date yioyrnh-ivx-zyuxd-tenof Take 1 Tab by mouth 90 Tab 1 07/202012/03/2020 ALAFEN (GENVOYA) daily for 90 days. [id number] mg tabletIndications: HIV infection documented in this [...] increasing creatinine.Remote h/o coccidioidomycosis. He move to [facility] from [place] in the summer of 2018 to take care of his aging parents, but is planning on moving at some point. 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 He is now set up with [facility] for his HIV meds. 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 Found out he needs a knee replacement. He was flying down to [place] to move his belonging out of his brothers house into storage. He c/o of ongoing diarrhea, culture returned negative. Covid test was also negative. He was not sexually active and the Genvoya was going fine. Today, he says his work is open again so he's been working two days a week. No other travel besides [place] as mentioned the last time. No sexual [...] Additions to the Medication List Medications ??? udulkzn-yvs-phatr-tenof ALAFEN (GENVOYA) [phone] mg tablet Sig: Take 1 Tab by mouth daily for 90 days. Dispense: 90 Tab Refill: 1 Lilian Rushing MD, MPH [facility] Infectious Disease Office: [phone] documented in this encounter Miscellaneous Notes Result [...] Disease Lilian Rushing MD [address] [facility], [address] [place] [address] (Wo rk) Scheduled Orders Name Type Priority Associated Diagnoses Order S chedule HIV 1 RNA QUANTITATION Lab Routine Asymptomatic HIV O rdered: 06/04/2020 infection ([facility]) URINE CHEMICAL (DIP) & Lab Routine Asymptomatic HIV O rdered: 06/04/2020 SEDIMENT (MICRO) WITHOUT infection ([facility]) REFLEX TO CULTURE documented as of this encounter Procedures Procedure Name Priority Date/Time Associated Diagnosis Comme nts URINALYSIS - [facility] Routine 06/04/2020 16:06 Asymptomatic HIV Re sults for this EDT infection ([facility]) procedur e are in the results section. HIV 1 RNA QUANTITATION Routine 06/04/2020 16:06 Asymptomatic H IV Results for this EDT infection ([facility]) procedur e are in the results section. COMPREHENSIVE Routine 06/04/2020 16:06 Asymptomatic HIV Result s for this METABOLIC PANEL (CMP) EDT infection ([facility]) procedure are in the results section. documented in this encounter Results HIV 1 RNA QUANTITATION (06/04/2020 16:06 EDT) [facility] HIV-1 RNA QUANT - Undetected Undetected [facility] Comment: [facility] INFCE Result Units: copies/mL Result in log copies/mL is Undetected. ADDITIONAL INFORMATION ------ The quantification range of this assay is 20 to 10,000 ,000 copies/mL (1.30 log to 7.00 log copies/mL). Testing wa s performed using the rafael HIV-1 test ([employer] with the rafael [id number] System. This test has been modified from the company controller's instructions. Its performance characteristics were determined by [facility] in a manner consistent with CLIA requirements. This test has not been cleared or approv ed by the U.S. Food and Drug Administration. Test Performed by: [facility] - [address] [address] Fiber Product Cutting Machine Operator: Pritesh Mcgee M.D. Ph.D.; CLIA# [id number] Specimen Performing Organization Address City/[facility]/ZIP Code Phon e Number [facility] [address] [id number] URINALYSIS - [facility] (06/04/2020 16:06 EDT) Pathologist Sig nature URINE APPEARANCE - Clear [facility]AR [facility] URINE BILIRUBIN - Negative NEGATIVE [facility] DIPSTICK [facility] URINE BLOOD - [facility] Negative NEG [facility] URINE COLOR - [facility] Yellow YELLOW [facility] URINE GLUCOSE - Negative NEGATIVE [facility] DIPSTICK [facility] URINE KETONE - [facility] Negative NEGATIVE [facility] URINE LEUK ESTERASE - Negative NEG [facility] URINE NITRITE - Negative NEG [facility] DIPSTICK [facility] URINE PH - [facility] 6.5 4.0 - 8.0 [facility] URINE PROTEIN - Negative NEG [facility] DIPSTICK [facility] URINE SPECIFIC GRAVITY 1.020 1.001 - 1.035 [facility] M ED [facility] URINE UROBILINOGEN - 0.2 0.2 - 1.0 [facility] DIPSTICK [facility] Specimen Performing Organization Address City/[facility]/ZIP Code Phon e Number [facility] [address] [place] [address] (ABNORMAL) COMPREHENSIVE METABOLIC PANEL (CMP) (06/04/2020 16:06 EDT) ALBUMIN - [facility] 3.5 3.4 - 4.9 [facility] g/dL [facility] ALKALINE 69 38 - 126 U/L [facility] PHOSPHATASE - [facility] BILIRUBIN TOTAL <0.2 (L) 0.2 - 1.3 [facility] mg/dL [facility] BUN - [facility] 25 10 - 26 mg/dL [facility] CALCIUM - [facility] 9.2 8.5 - 10.5 [facility] mg/dL [facility] Chloride 102 96 - 110 [facility] mmol/L [facility] CO2 Total 29 21 - 32 mEq/L [facility] CREATININE 0.91 0.66 - 1.25 [facility] mg/dL [facility] eGFR >60 [facility] Comment: [facility] Chronic renal impairment is defined as GFR <60 Multiply result by 1.210 for patients . Anion Gap 8 0 - 18 [facility] GLUCOSE - [facility] 97 70 - 100 [facility] mg/dL [facility] Potassium 4.6 3.5 - 5.0 [facility] mEq/L [facility] Sodium 139 136 - 145 [facility] mEq/L [facility] TOTAL PROTEIN - 6.3 6.2 - 8.2 [facility] gm/dL [facility] SGOT/AST - [facility] 22 17 - 59 U/L [facility] SGPT/ALT - [facility] 26 0 - 50 U/L [facility] Specimen Blood - Venous blood (substance) Performing Organization Address City/State/ZIP Code Phon e Number [facility] [address] [place] [address] documented in this encounter Visit Diagnoses Diagnosis Asymptomatic HIV infection (HCC) - Prima ry Asymptomatic human immunodeficiency viru s (HIV) infection status Encounter for immunization Need for other specified prophylactic va ccination against single bacterial disease Medication monitoring encounter Encounter for therapeutic drug monitorin g documented in this encounter Discontinued Medications Medication Sig Discontinue Reason Start Date End Date piknlpl-ffp-ymkti-tenof Take 1 Tab by mouth Reorder 04/18/2020 06/04/2020 ALAFEN (GENVOYA) daily for 90 days. [phone] mg tabletIndications: HIV infection documented as of this encounter Orders Immunization/Injection Count Last Ordered Date First O rdered Date SHINGRIX (ZOSTER VACCINE, RECOMBINANT) IM 1 2019 documented in this encounter Care Teams It Technical Architect Relationship Specialty Start Date End Date Marcy Alvarenga, PCP - General Family Medicine - Primary 1 11/13/18 SOUND RECORDIST Care [address] [place] [phone] documented as of this encounter
--- OUTSIDE RECORDS SUMMARY | 2022-03-13 20:34 | XMS_ITS | Encounter Summary ---
:1965 Author Organization [facility] Address [address] [place] [address] Care Team Providers Name Role Phone Marcy Alvarenga REPLENISHMENT MERCHANDISING ASSOCIATE Primary Care Provider [phone] Reason for Visit Reason Comments Injections Encounter Details Date Type Department Care Team Description 12/07/[address] [facility] - Nurse, Cmvc Gonorrh ea of pharynx [facility] Infectious Infectious Disease in mal e (Primary Dx) Disease [address] [place], [place] [address] Social History Tobacco Use Types Packs/Day Years [...] InstructionsAissatou Morales RN - 12/07/2020 11:[address] [facility] Patient Instructions ceftriaxone (injection) Pronunciation: SEF trye [...] a refrigeratoror at room temperature. Do not spring layer a microwave or boiling water. Use the [...] may report side effects to FDA at 5-643-WXZ-1516. What other drugs will affect ceftriaxone? Other drugs may interact with ceftriaxone, including prescription and ydds-lki-qkxzkbt medicines, vitamins, and herbal products. Tell your [...] to ensure that the information provided by [employer]. ('[employer]')is accurate, up-to-date, and complete, but no guarantee is made to that effect. Drug information contained herein may be time sensitive. [employer] information has been compiled for use by healthcare practitioners and consumers in the [place] and therefore [employer] does not warrant that uses outside of the [place] are appropriate, unless specifically indicated otherwise. [employer] drug information does not endorse drugs, diagnose patients or recommend therapy. [employer] drug information is an informational resource designed [...] effective or appropriate for any given patient. [employer] does not assume any responsibility for any aspect of healthcare administered with the aid of information [employer] provides. The information contained herein is not intended to cover all possible uses, directions, precautions, warnings, drug interactions, allergic reactions, or adverse effects. If you have questions about the drugs you are taking, check with your doctor, nurse or pharmacist. Copyright 0093-7286 [employer]. Version: 9.01. Revision date: 10/06/2017. Care instructions adapted under license by [facility]. If you have questions about a medical condition or this instruction, always ask your healthcare professional. [employer] disclaims any warranty or liability for your [...] ??? Clindamycin Phosphate 1 % swab ??? wpnpjoi-onw-fdpry-tenof ALAFEN (GENVOYA) [id number] mg tablet ??? lisinopriL (PRINIVIL) 10 mg tablet ??? tamsulosin (FLOMAX) 0.4 mg capsule No current facility-administered medications for this visit. Allergies No Known Allergies Problem List: Patient Active Problem List Diagnosis ??? Asymptomatic HIV infection ([facility]) ??? Benign prostatic hyperplasia ??? Environmental allergies [...] reconstituted with 1ml of 1% Lidocaine (lot [id number], exp 03/15). Per ordersof Dr. Rushing, injection [...] the facility if needed. Aissatou Morales RN [facility] Infectious Disease Office: [phone] CC: Lilian Rushing MD documented in this encounter Plan of Treatment Upcoming Encounters Date Type Specialty Care Team Description 04/14/2022 Office Visit Infectious Disease Lilian Rushing MD [address] [facility], [address] [place] [address] (Wo rk) documented as [...] 21 documented in this encounter Care Teams Utility System Operator Relationship Specialty Start Date End Date Marcy Alvarenga, PCP - General Family Medicine - Primary 1 11/13/18 REPLENISHMENT MERCHANDISING ASSOCIATE Care [address] [place] [phone] documented as of this encounter
--- OUTSIDE RECORDS SUMMARY | 2022-03-13 20:34 | XMS_ITS | Encounter Summary ---
:1965 Author Organization [facility] Address [address] [place] [address] Care Team Providers Name Role Phone Marcy Alvarenga SENIOR COMPUTER SPECIALIST Primary Care Provider [phone] Reason for Referral Radiology Services (Routine) - Specialty Report Received Specialty Diagnoses / Procedures Referred By Contact Refer red To Contact Radiology Diagnoses Coccidioidomycosis Lilian Rushing MD Procedures MR LUMBAR SPINE W WO CONTRAST [address] [facility], [address] [place] [address] Referral ID Status Reason Start Date Expiration Date Visits V isits Requested Authorized [id number] Specialty 01/17/2021 1 1 Report Received adiology Services (Routine) - Specialty Report Received Specialty Diagnoses / Procedures Referred By Contact Refer red To Contact Radiology Diagnoses Coccidioidomycosis Lilian Rushing MD Procedures MR HEAD W WO CONTRAST [address] [facility], [address] [place] [address] Referral ID Status Reason Start Date Expiration Date Visits V isits Requested Authorized [id number] Specialty 01/17/2021 1 1 Report Received Reason for Visit Reason Comments Follow-up Knee culture Encounter Details Date Type Department Care Team Description 01/17/2021 Office Visit [facility], Lilian Coccidio idomycosis (Primary Dx); - [facility] Zari Ruiz MD Arthritis of left knee; Disease [address] [facility] Asymptomatic HIV infection ([facility]) [address], [address] [place] [address] [place] [phone] [phone] Social History Tobacco Use Types Packs/Day [...] off antifungals. He was diagnosed with HIV [id number], but his inez CD4 is unknown. He has been well-controlled at least since 10/2015 with undetectable viral loads and CD4 counts in the 389-728 range. See other history review below. Records review: - 2015 ([place]) - no mention of Cocci in PCP notes - 2017 ([place]) - remote h/o Cocci and had swelling in R knee - 10/04/18 ([place]) - PCP visit, had Wayne's cyst of L knee, no pain. - Had been referred to Ortho 01/19/18 for h/o Cocci in that knee. Unclear if he was seen at Ortho. - My initial consult 04/29/19 - he was worried the Cocci was back, was having night sweats. - 05/30/19 did ofwb-I-nfzypf (negative) and referred to Ortho for knee tap with fungal stain/culture - F/u 09/01/19 - He reported that he was unable to get to Ortho appointment due to family issues - Epic change-over at [facility] 08/2019 - No-showed to Ortho appointment 12/01/19 [...] a steroid injection by Ortho here at [facility] - PCP follow up 08/17/20, lump on L scalp. I+D, bloody drainage, came back + MRSA, Doxy prescribed - F/U with me 12/03/20 - no mention of the knee I received a call from Dr. Laura at [facility] on 01/09/21. He had done a tap of the patient's knee in preparation for TKA. The tap was done on 12/24/20 and he had just been notified that the sample was growing mold. The isolate was sent to [facility] and onto [facility] for identification. Verbal report of coccidioidomycosis but [...] 7.2 (mg/L) WBC count 7.65 ?? Micro: [place]: L knee fluid - 10,840 WBCs (36% PMNs, 13% Lymphs, 51% Monocytes) L knee fluid culture: 12/24/20 - no growth (bacterial culture) - GS with many WBCs, no bacteria Fungal culture - mold, sent to [facility] for ID Radiology: Has MRI of the [...] 20,000 of these are diagnosed and reported, [id number] produce pulmonary sequelae, 600-1000 spread hematogenously from [...] with the [facility] ([email or web address]/keaasx-cvwnt-xmgmdo/consult-vfce) since this is not a disease we commonly see in [place]. Because it may take another 4-6 weeks [...] SPINE W WO CONTRAST ??? Miscellaneous Test, [place] [facility] Orders Placed This Visit and Additions [...] of the visit. Lilian Rushing MD, MPH [facility] Infectious Disease Office: [phone] Cc: Dr. Laura at [facility] Aissatou fiore RN - 01/17/2021 1300 EDT Pt is eligible for covid vaccine. documented in this encounter Plan of Treatment Upcoming Encounters Date Type Specialty Care Team Description 04/14/2022 Office Visit Infectious Disease Lilian Rushing MD [address] [place] [address], [address] [place] [address] (Wo rk) Scheduled Orders Name Type Priority Associated Diagnoses Order S chedule MR HEAD W WO CONTRAST Imaging Routine Coccidioidomycosis Ordered: 01/17/2021 MR LUMBAR SPINE W WO Imaging Routine Coccidioidomycosis O rdered: 01/17/2021 CONTRAST documented as of this encounter Procedures Procedure Name Priority Date/Time Associated Diagnosis Comme nts MISCELLANEOUS TEST, Routine 01/17/2021 13:40 Coccidioidomycosi s Results for this [place] EDT procedure are i n the results section. documented in this encounter Results MISCELLANEOUS TEST, [place] (01/17/2021 13:40 EDT) Pathologist [facility] MISCELLANEOUS TEST - SEE BELOW () [facility] Comment: [facility] Test ? Result ?? Flag [...] This test has been modified from the hand tube winder's instructions. Its performance characteristics were determined by [facility] in a manner consistent with CLIA requirements. This test has not been cleared or approved by the U.S. Food and Drug Administration. Test Performed by: [facility] - [address] [address] Train Control Technician: Pritesh Mcgee M.D. Ph.D.; CLIA# [id number] Specimen Blood - Venous blood (substance) Performing Organization Address City/State/ZIP Code Phon e Number [facility] [address] [place] [address] documented in this encounter Visit Diagnoses Diagnosis Coccidioidomycosis - Primary Coccidioidomycosis, unspecified Arthritis of left knee Unspecified arthropathy, lower leg Asymptomatic HIV infection (HCC) Asymptomatic human immunodeficiency viru s (HIV) infection status documented in this encounter Care Teams Molder Fitting Relationship Specialty Start Date End Date Marcy Alvarenga, PCP - General Family Medicine - Primary 1 11/13/18 SENIOR COMPUTER SPECIALIST Care [address] [place] [phone] documented as of this encounter
--- OUTSIDE RECORDS SUMMARY | 2022-03-13 20:34 | XMS_ITS | Encounter Summary ---
:1965 Author Organization [facility] Address [address] [place] [address] Care Team Providers Name Role Phone Marcy Alvarenga SENIOR RESEARCH MANAGER Primary Care Provider [phone] Encounter Details Date Type Department Care Team [...] Infectious Disease Lilian Rushing MD [address] [facility], [address] [place] [address] (Wo rk) documented as of this encounter Visit Diagnoses Not on filedocumented in this encounter Care Teams Rn Security Relationship Specialty Start Date End Date Gil-Marcy Santos, PCP - General Family Medicine - Primary 1 11/13/18 SENIOR RESEARCH MANAGER Care [address] [facility] [address] [place] [phone] documented as of this encounter
--- OUTSIDE RECORDS SUMMARY | 2022-03-13 20:35 | XMS_ITS | Encounter Summary ---
:1965 Author Organization [facility] Address [address] [place] [address] Care Team Providers Name Role Phone Marcy Alvarenga BURNING PLANT OPERATOR Primary Care Provider [phone] Reason for Visit Reason Onset Date Comments Medications Refill 04/19/2020 Encounter Details Date Type Department Care Team Description 04/19/2020 Telephone [facility] Alvarenga er Medications Refill [facility] Family Medicine - L, BURNING PLANT OPERATOR [address] [place] [address] [place], [place] [phone] [place] [phone] (Wo rk) Social History Tobacco Use [...] made for 05/01/20 at 1500 with Marcy [facility] MEDICATION REFILL Medication: tamsulosin 0.4 Medication, [...] Visit Infectious Disease Lilian Rushing MD [address] [place] [address] [address] [place] [address] (Wo rk) documented as of this encounter Visit Diagnoses Not on filedocumented in this encounter Care Teams Checkroom Chief Relationship Specialty Start Date End Date Gil-Marcy Santos, PCP - General Family Medicine - Primary 1 11/13/18 BURNING PLANT OPERATOR Care [address] [place] [address] [address] [place] [address] documented as of this encounter
--- OUTSIDE RECORDS SUMMARY | 2022-03-13 20:35 | XMS_ITS | Encounter Summary ---
:1965 Author Organization [facility] Address [address] [place] [address] Care Team Providers Name Role Phone None, Provider Primary Care Provider Unavailable Reason for Visit Reason Onset Date Comments Social Work 04/27/2019 Encounter Details Date Type Department Care Team Description 04/27/2019 Telephone [facility] Infectious Molly Gibson LICSW Social Work Disease - [facility] s [address] [place] [address] Social History Tobacco Use Types [...] Visit Infectious Disease Lilian Rushing MD [address] [place] [address], [address] [place] [address] (Wo rk) documented as of this encounter Visit Diagnoses Not on filedocumented in this encounter Care Teams Pediatric Registered Nurse Relationship Specialty Start Date End Date None, Provider PCP - General 04/22/19 06/22/19 documented as of this encounter
--- OUTSIDE RECORDS SUMMARY | 2022-03-13 20:35 | XMS_ITS | Encounter Summary ---
:1965 Author Organization [facility] Address [address] [place] [address] Care Team Providers Name Role Phone Marcy Alvarenga MATTRESS AND FOUNDATION SEWER Primary Care Provider [phone] Encounter Details Date Type Department Care Team Description 12/05/2019 Abstract [facility] Cht Panel Coord [facility], Family Medicine - Be in [place] [address], [address] [place] [address] Social History Tobacco Use Types [...] Visit Infectious Disease Lilian Rushing MD [address] [place] [address], [address] [place] [address] (Wo rk) documented as of this encounter Visit Diagnoses Not on filedocumented in this encounter Care Teams Glue Jointer Operator Relationship Specialty Start Date End Date Marcy Alvarenga, PCP - General Family Medicine - Primary 1 11/13/18 [employer] AND [employer]OUNDATION SEWER Care [address] [place] [phone] documented as of this encounter
--- OUTSIDE RECORDS SUMMARY | 2022-03-13 20:35 | XMS_ITS | Encounter Summary ---
:1965 Author Organization [facility] Address [address] [place] [address] Care Team Providers Name Role Phone None, [...] Type Department Care Team Description 06/23/2019 Emergency [facility] Aissatou Morrison P A-Nikkie [address] [facility], [address] [place] [address] Examination, Emergency Department Emergency, MD Celia medicolegal ([facility] Dx) [address] [place] [address] Social History Tobacco Use Types [...] Sig Dispensed Refills Start Date End Date cloyetq-mar-txuib-tenof Take by mouth 0 09/27/2019 ALAFEN (GENVOYA) daily. [phone] mg tabletIndications: HIV infection lisinopril (PRINIVIL) 10 [...] with ??? Independent Blood Draw Arrives with [facility] for evidentiary blood draw. Pt states he [...] Visit Infectious Disease Lilian Rushing MD [address] [place] [address], [address] [place] [address] (Wo rk) documented as of this encounter Visit Diagnoses Diagnosis Examination, medicolegal - Primary Examination for medicolegal reason documented in this encounter Care Teams Director Of Event Management Relationship Specialty Start Date End Date None, Provider PCP - General 06/23/19 09/12/19 documented as of this encounter
--- OUTSIDE RECORDS SUMMARY | 2022-03-13 20:35 | XMS_ITS | Encounter Summary ---
:1965 Author Organization [facility] Address [address] [place] [address] Care Team Providers Name Role Phone Marcy Alvarenga STOKER MECHANIC Primary Care Provider [phone] Encounter Details Date Type Department Care Team Description 03/07/2020 Lab Requisition [facility] Outr Resulting Lab, Pathology & Laboratory Provider [facility] [address] [place] [address] Social History Tobacco Use Types Packs/Day Years [...] Visit Infectious Disease Lilian Rushing MD [address] [place] [address], [address] [place] [address] (Wo rk) documented as of this encounter Procedures Procedure Name Priority Date/Time Associated Diagnosis Comme nts T CELL SUBSETS Routine 03/07/2020 13:30 EDT Resul ts for this procedure are i n the results section . documented in this encounter Results (ABNORMAL) IMMUNODEFICIENCY PANEL (03/07/2020 13:30 EDT) Pathologist Sig nature % CD3 75 62 - 87 % [facility] % CD4 33 (L) 35 - 63 % [facility] % CD8 37 (H) 10 - 35 % [facility] Absolute CD4 728 329-1,427 Cells/uL [facility] Specimen Blood - Venous blood (substance) Performing Organization Address City/State/ZIP Code Phon e Number [facility] [address] [place] [address] SERVICES documented in this encounter Visit Diagnoses Not on filedocumented in this encounter Additional Health Concerns Infection Onset Date Last Indicated Resolved Time MRSAComment: Hx of RGMF-Ldah-98/23/2020 08/29/2021 08/29/20 21 C. Stoner 12/31/21 documented as of this encounter Care Teams Photonics Engineer Relationship Specialty Start Date End Date Gil-Marcy Santos, PCP - General Family Medicine - Primary 1 11/13/18 STOKER MECHANIC Care [address] [place] [phone] documented as of this encounter
--- OUTSIDE RECORDS SUMMARY | 2022-03-13 20:35 | XMS_ITS | Encounter Summary ---
:1965 Author Organization [facility] Address [address] [place] [address] Care Team Providers Name Role Phone Marcy Alvarenga ANDROID FRAMEWORK DEVELOPER Primary Care Provider [phone] Reason for Visit Reason Onset Date Comments Medications Refill 02/14/2020 Encounter Details Date Type Department Care Team Description 02/14/2020 Telephone [facility] Lilian Rushing MD Medications Refill Infectious Disease [address] [facility] [address] [facility]-, [address] [place] [address] [place] [phone] (Wo rk) Social History Tobacco Use [...] Visit Infectious Disease Lilian Rushing MD [address] [place] [address] [address] [place] [address] (Wo rk) documented as of this encounter Visit Diagnoses Not on filedocumented in this encounter Care Teams Research And Development Chemist Relationship Specialty Start Date End Date Gil-Marcy Santos, PCP - General Family Medicine - Primary 1 11/13/18 ANDROID FRAMEWORK DEVELOPER Care [address] [place] [address] [address] [place] [address] documented as of this encounter
--- OUTSIDE RECORDS SUMMARY | 2022-03-13 20:35 | XMS_ITS | Encounter Summary ---
:1965 Author Organization [facility] Address [address] [place] [address] Care Team Providers Name Role Phone None, [...] Visit Infectious Disease Lilian Rushing MD [address] [place] [address], [address] [place] [address] (Wo rk) documented as of this encounter Visit Diagnoses Not on filedocumented in this encounter Care Teams Semiconductor Processing Technician Relationship Specialty Start Date End Date None, Provider PCP - General 06/23/19 09/12/19 documented as of this encounter
--- OUTSIDE RECORDS SUMMARY | 2022-03-13 20:35 | XMS_ITS | Encounter Summary ---
:1965 Author Organization [facility] Address [address] [place] [address] Care Team Providers Name Role Phone Marcy Alvarenga 8TH GRADE MATHEMATICS TEACHER Primary Care Provider [phone] Reason for Visit Reason Onset Date Comments Coordination Of Care 10/05/2019 Encounter Details Date Type Department Care Team Description 10/05/2019 Telephone [facility] - Brandon Alvarenga ation Of Care [facility] Family Medicine - Marcy Ruiz NP [address], [facility] [address] [place] [address] [place] [address] (Wo rk) Social History Tobacco [...] Encounter - Robert Hobbs RN - 10/06/2019 1140 EST Spoke to ID regarding patient insurance needs. Referred to Patient Navigators for assistance establishing Medicaid coverage. Creating encounter for tracking purposes. documented in this encounter Plan of Treatment Upcoming Encounters Date Type Specialty Care Team Description 04/14/2022 Office Visit Infectious Disease Lilian Rushing MD [address] [facility] [address] [place] [address] (Wo rk) documented as of this encounter Visit Diagnoses Not on filedocumented in this encounter Care Teams Maintenance Data Analyst Relationship Specialty Start Date End Date Marcy Alvarenga, PCP - General Family Medicine - Primary 1 11/13/18 8TH GRADE MATHEMATICS TEACHER Care [address] [place] [address] 2 [place] [address] documented as of this encounter
--- OUTSIDE RECORDS SUMMARY | 2022-03-13 20:35 | XMS_ITS | Encounter Summary ---
:1965 Author Organization [facility] Address [address] [place] [address] Care Team Providers Name Role Phone Marcy Alvarenga POLICY ISSUE CLERK Primary Care Provider [phone] Reason for Visit Reason Onset Date Comments Medication Problem 09/29/2019 Encounter Details Date Type Department Care Team Description 09/29/2019 Telephone [facility] Aissatou Iraheta RN Medication Problem Infectious Disease [address] [place] [address] [place] [address] [phone] Social History Tobacco Use Types Packs/Day Years [...] Sig Dispensed Refills Start Date End Date xhuypch-viu-yjlni-tenof Take 1 Tab by mouth 90 Tab 1 04/18/2020 ALAFEN (GENVOYA) daily for 90 days. [phone] mg tabletIndications: HIV infection documented in this encounter Miscellaneous Notes Telephone Encounter - Lilian Rushing MD - 10/24/2019 1014 EST Noted, thanks. elephone Encounter - Aissatou Iraheta RN - 10/24/2019 0938 EST Bernardino at [facility] said pt is all set, she mailed out his card today. If he would like to pharmacy picking technician meds before the card arrives he needs to give the pharmacy the following information, ID#: [id number] BIN#: [id number] PCN: [id number] I called [facility] in [place] and gave them the above information. The Genvoya is covered in full and theydo have it in stock. She will work on getting the rx ready for pharmacy picking technician. Left message for pt stating application has been approved, he will receive card in the mail, and [facility] is getting his rx ready for him. Call if he has any questions or problems. elephone Encounter - Aissatou Iraheta RN - 10/17/2019 1531 EST I called the [facility] office, they are closed until 10/21 elephone Encounter - Aissatou Iraheta RN - 10/17/2019 1405 EST Pt stopped in with completed application, pay stubs, and cable bill. He could not find his old tax 1040 form, its in [place]. He has his brother look for it but he couldn't find it. I faxed the completed application to the [facility] coordinator. I said I can send in his rx to the [facility] in [place]. Once the application is approved he can pick his meds up there. I will call [facility] later today to confirm the received his [...] him information to the Patient Navigators at [facility] who can sit down with [place] and [place]t [place] per [facility]. elephone Encounter - Aissatou Iraheta RN - 10/05/2019 1039 EST Call from [facility] specialty pharmacy. Insuance is stating [place] is not part of medicaid. I spoke with the Sabiha the pharmacist. They are using pts [place] insurance. If Dr. Rushing is not signed [...] pt and discuss. elephone Encounter - Aissatou Iraehta RN - 09/29/2019 1609 EST Pt called looking for help filling out [employer] paperwork and also applying for [place] medicaid. I sent a message to PCP [facility] to see if they can help him with the insurance application. documented in this encounter Plan of Treatment Upcoming Encounters Date Type Specialty Care Team Description 04/14/2022 Office Visit Infectious Disease Lilian Rushing MD [address] [place] [address], [address] [place] [address] (Wo rk) documented as of this encounter Visit Diagnoses Not on filedocumented in this encounter Discontinued Medications Medication Sig Discontinue Reason Start Date End Date wvsubkr-uje-clkbl-tenof Take 1 Tab by mouth Reorder 09/27/2019 10/17/2019 ALAFEN (GENVOYA) daily for 90 days. [phone] mg tabletIndications: HIV infection documented as of this encounter Care Teams Inspector And Unloader Relationship Specialty Start Date End Date Marcy Alvarenga, PCP - General Family Medicine - Primary 1 11/13/18 POLICY ISSUE CLERK Care [address] [place] [phone] documented as of this encounter
--- OUTSIDE RECORDS SUMMARY | 2022-03-13 20:35 | XMS_ITS | Encounter Summary ---
:1965 Author Organization [facility] Address [address] [place] [address] Care Team Providers Name Role Phone None, Provider Primary Care Provider Unavailable Reason for Visit Reason Comments Penile Discharge 3-4 day hx penile discharge. Denies notifiication of specific STD. ? fever Encounter Details Date Type Department Care Team Description 06/23/2019 Hospital Encounter [facility] Hay Hebert MD [address] [place] [phone] Concern about STD in male without diagno sis (Primary Dx); Urgent Care - [facility], Provider, Dysuria [address] [phone] Social History Tobacco Use Types Packs/Day Years [...] attachments cannot be sent through Care Everywhere.[email or web address] (Urdu)documented in this encounter Medications at Time of Discharge Medication Sig Dispensed Refills Start Date End Date ypasfit-lxh-jhpzo-tenof Take by mouth 0 09/27/2019 ALAFEN (GENVOYA) daily. [phone] mg tabletIndications: HIV infection lisinopril (PRINIVIL) 10 Take 10 mg by mouth 0 04/18/2020 mg tabletIndications: daily. hypertension tamsulosin (FLOMAX) 0.4 mg Take 0.4 mg by 0 02/15/2020 capsule mouth daily. documented as of this encounter Discharge Disposition Disposition Code Departure Means Destination Home or Self Care Car documented in this encounter ED Notes Graeme Najera MA - 06/23/2019 5076 EDT Blood drawn via butterfly needle per protocol, tiger tube(s) sent to lab per order. Crys Hebert MD - 06/23/2019 3475 EDT DOS: 06/23/2019 Chief Complaint Patient presents [...] Outpatient Medications Medication Sig Dispense Refill ??? bltpfsv-ylq-xpqjl-tenof ALAFEN (GENVOYA) [phone] mg tablet Take by mouth daily. ??? lisinopril (PRINIVIL) 10 mg tablet Take 10 mg by mouth daily. ??? tamsulosin (FLOMAX) 0.4 mg capsule Take 0.4 mg by mouth daily. No Known Allergies There are no active problems to display for this patient. Past Medical History: Diagnosis Date ??? BPH (benign prostatic hyperplasia) ??? HIV (human immunodeficiency virus infection) ([facility]) ??? Hypertension Social History Tobacco Use ??? [...] Bilirubin Neg Neg Ketones Neg Neg Specific [place] 1.025 1.001 - 1.035 Blood Neg Neg pH 6.0 4.6 - 8.0 Protein 1+ (A) Neg Urobilinogen 0.2 0.2 - 1.0 mg/dL Nitrite Neg Neg Leuk Esterase Trace (A) Neg Tech ID [id number] Radiology orders: None Imaging Results None No [...] of further medications. Upon departure from [facility], the patient's pain was 6 on a zero to ten scale. Any further pain treatment will be at the discretion of the provider following up with the patient based on their clinical assessment . Condition at departure from the [facility] : Good MDM 06/23/2019 [...] Visit Infectious Disease Lilian Rushing MD [address] [place] [address], [address] [place] [address] (Wo rk) documented as of this [...] EDT) Tests to be added URINE CULTURE [facility] [place] [id number] (URGENT [facility] problems CARE)Comment: LABORATORY SERVICES Performed at [facility], [place], [place] Specimen Other Performing Organization Address City/[facility]/ZIP Code Phon e Number [facility] [address] [place] [address] SERVICES (ABNORMAL) CHLAMYDIA/N. GONORRHOEAE AMPLIFIED RNA, URINE (06/23/2019 16:25 EDT) Pathologist Sig nature Chlamydia Result Negative [facility] GC Result Positive (AA) [facility] Specimen Other (qualifier value) - Urine Performing Organization Address City/[facility]/ZIP Code Phon e Number [facility] [address] [place] [address] SERVICES HEPATITIS C AB W REFLEX TO HCV RNA BY PCR (06/23/2019 16:25 EDT) Pathologist Sig nature Hep C Ab w Rfx PCR Negative Negative [facility] HCSCR2 LABORATORY SERVICES Specimen Blood specimen (specimen) - Blood Performing Organization Address City/[facility]/ZIP Code Phon e Number [facility] [address] [place] [address] SERVICES HEPATITIS B SURFACE ANTIGEN (06/23/2019 16:25 EDT) Pathologist Sig nature Hepatitis B Surface Negative Negative [facility] Antigen LABORATORY SERVICES Specimen Blood specimen (specimen) - Blood Performing Organization Address City/[facility]/ZIP [facility] Phon e Number [facility] [address] [place] [address] SERVICES SYPHILIS SEROLOGY (06/23/2019 16:25 EDT) Syphilis Serology NegativeComment: [facility] Reference Range: LABORATORY SERVICES Negative Specimen Blood specimen (specimen) - Blood Performing Organization Address City/[facility]/ZIP Code Phon e Number [facility] [address] [place] [address] SERVICES BACTERIAL CULTURE, URINE (06/23/2019 16:20 EDT) Pathologist Sig nature Result No growth [facility] LABORATOR Y SERVICES Specimen Urine Performing Organization Address [facility]/ZIP Code Phon e Number [facility] [address] [place] [address] SERVICES (ABNORMAL) URINALYSIS MICROSCOPIC ONLY (06/23/2019 16:20 EDT) WBC, UA 4 to 10 (A) 0 to 3 /HPF [facility] RBC, UA 0 to 2 0 to 2 /HPF [facility] Squam Epithel, UA None seen None seen [facility] Hyaline Casts, UA < or = 10 < or = 10 [facility] LABORATORY SERVICES Bacteria, UA None seen None seen [facility] /[facility] SERVICES UA Comment Sediment results [facility] Comment: LABORATORY are unreliable on SERVICES urines unrefrig >2hrs or refrig >8hrs. Performed at [facility], [place], [place] Specimen Urine (substance) - Urine Performing Organization Address [facility]/ZIP [facility] Phon e Number [facility] [address] [place] [address] SERVICES (ABNORMAL) POCT URINE DIPSTICK, CLINITEK (06/23/2019 16:18 EDT) Color LOGAN Yellow [facility] Clarity, UA Clear Clear [facility] Glucose Neg [facility] LABORATORY SERVICES Bilirubin Neg [facility] LABORATORY SERVICES Ketones Neg [facility] LABORATORY SERVICES Specific [place] 1.025 1.001 - 1.035 [facility] Blood Neg Neg [facility] pH 6.0 4.6 - 8.0 [facility] Protein 1+ (A) [facility] LABORATORY SERVICES Urobilinogen 0.2 0.2 - 1.0 [facility] mg/dL LABORATORY SERVICES Nitrite Neg Neg [facility] Leuk Esterase Trace (A) [facility] LABORATORY business support liaison ID [id number]: [facility] Test performed at LABORATORY Urgent Care SERVICES Specimen Urine (substance) - Urine Performing Organization Address City/State/ZIP Code Phon e Number [facility] [address] [place] [address] SERVICES documented in this encounter Visit Diagnoses [...] mg by 0 02/15/2020 capsule mouth daily. ptrfqjg-dsb-rvhyj-tenof Take by mouth 0 09/27/2019 ALAFEN (GENVOYA) daily. [phone] mg tabletIndications: HIV infection added in this [...] ine documented in this encounter Care Teams Shopper'S Aide Relationship Specialty Start Date End Date None, Provider PCP - General 06/23/19 09/12/19 documented as of this encounter
--- OUTSIDE RECORDS SUMMARY | 2022-03-13 20:35 | XMS_ITS | Encounter Summary ---
:1965 Author Organization [facility] Address [address] [place] [address] Care Team Providers Name Role Phone Marcy Alvarenga INSTALLATION SUPERVISOR Primary Care Provider [phone] Reason for Visit Reason Comments HIV Infection Encounter Details Date Type Department Care Team Description 03/05/2020 Telemedicine [facility] - Lilian Rushing Asy mptomatic HIV infection ([facility]) (Primary Dx); [facility] Infectious MD Encounter for immunization; Disease [address] [facility] Chronic knee pain, unspecified lateralit y; [address] [facility] [address] [place] [address] [place] [phone] Social History Tobacco Use Types Packs/Day [...] increasing creatinine.Remote h/o coccidioidomycosis. He move to [facility] from [place] in the summer of 2018 to take care of his aging parents, but is planning on moving at some point. 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 He is now set up with [facility] for his HIV meds. At his [...] He said he is pretty much in [place]. 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 He is getting stir crazy. He is flying to [facility] - a lot of his stuff [...] reflex to culture Lilian Rushing MD, MPH [facility] Infectious Disease Office: [phone] CC: referring provider, PCP?? documented in this encounter Miscellaneous Notes Addendum Note - Aissatou Morales RN - 03/05/2020 1100 EDT Addended by: AISSATOU MORALES on: 03/07/2020 12:55 Modules accepted: Orders documented in this encounter Plan of Treatment Upcoming Encounters Date Type Specialty Care Team Description 04/14/2022 Office Visit Infectious Disease Lilian Rushing MD [address] [facility], [address] [place] [address] (Wo rk) Scheduled Orders [...] xpected: 03/06/2020 SEDIMENT (MICRO) WITHOUT infecti on ([facility]) (Approximate), REFLEX TO CULTURE Medication monitoring E xpires: 03/05/2021 encounter documented as of this encounter Results (ABNORMAL) BASIC METABOLIC PANEL (BMP) (03/07/2020 13:30 EDT) BUN - [facility] 31 (H) 10 - 26 mg/dL [facility] CALCIUM - [facility] 9.6 8.5 - 10.5 [facility] mg/dL [facility] Chloride 99 96 - 110 [facility] mmol/L [facility] CO2 Total 27 21 - 32 mEq/L [facility] CREATININE 1.03 0.66 - 1.25 [facility] mg/dL [facility] eGFR >60 [facility] Comment: [facility] Chronic renal impairment is defined as GFR <60 Multiply result by 1.210 for patients . Anion Gap 8 0 - 18 [facility] GLUCOSE - [facility] 103 (H) 70 - 100 mg/dL [facility] Potassium 4.5 3.5 - 5.0 [facility] mEq/L [facility] Sodium 134 (L) 136 - 145 [facility] mEq/L [facility] Specimen Blood - Venous blood (substance) Performing Organization Address City/State/ZIP Code Phon e Number [facility] [address] [place] [address] [facility] (ABNORMAL) IMMUNODEFICIENCY PANEL (03/07/2020 13:30 EDT) % CD3 75 62 - 87 % [facility] % CD4 33 (A) 35 - 63 % [facility] % CD8 37 (A) 10 - 35 % [facility] Absolute CD4 [phone] [facility] Comment: Cells/uL [facility] Test performed or referred by The [address] [address] Specimen Blood - Venous blood (substance) Performing Organization Address City/State/ZIP Code Phon e Number [facility] [address] [place] [address] [facility] documented in this encounter Visit [...] 03/05/2020 documented in this encounter Care Teams Diagnostic Technician Relationship Specialty Start Date End Date Gil-Marcy Santos, PCP - General Family Medicine - Primary 1 11/13/18 INSTALLATION SUPERVISOR Care [address] [place] [phone] documented as of this encounter
--- OUTSIDE RECORDS SUMMARY | 2022-03-13 20:35 | XMS_ITS | Encounter Summary ---
:1965 Author Organization [facility] Address [address] [place] [address] Care Team Providers Name Role Phone Marcy Alvarenga METAL MILLING MACHINE OPERATOR Primary Care Provider [phone] Reason for Visit Reason Onset Date Comments Update 11/01/2019 med and insurance Encounter Details Date Type Department Care Team Description 11/01/2019 Telephone [facility] - Aissatou Iraheta RN Update (med and [facility] Infectious Dise ase [address] [facility] insurance) [address] [place] [address] [place], [place] [address] Social History Tobacco Use Types Packs/Day Years [...] Telephone Encounter - Aissatou Iraheta RN - 11/08/2019 1347 EST Voicemail from pt stating he is all set with his [place] insurance, he has received his cards, and got his medications. He is all set. elephone Encounter - Aissatou Iraheta RN - 11/08/2019 0941 EST Left another message for pt to call back with insurance status. I informed him we can help coordinate if needed. elephone Encounter - Aissatou Iraheta RN - 11/01/2019 0921 EST ----- Message from Aissatou Iraheta RN sent at 10/24/2019 9:49 EST ----- Check in with pt about [place] medicaid insurance. documented in this encounter Plan of Treatment Upcoming Encounters Date Type Specialty Care Team Description 04/14/2022 Office Visit Infectious Disease Lilian Rushing MD [address] [place] [address] [address] [place] [address] (Wo rk) documented as of this encounter Visit Diagnoses Not on filedocumented in this encounter Care Teams Home Appliance Technician Relationship Specialty Start Date End Date Gil-Marcy Santos, PCP - General Family Medicine - Primary 1 11/13/18 METAL MILLING MACHINE OPERATOR Care [address] [place] [address] 2 [place] [address] documented as of this encounter
--- OUTSIDE RECORDS SUMMARY | 2022-03-13 20:35 | XMS_ITS | Encounter Summary ---
:1965 Author Organization [facility] Address [address] [place] [address] Care Team Providers Name Role Phone Marcy Alvarenga SALES CORRESPONDENCE CLERK Primary Care Provider [phone] Reason for Visit Reason Comments New Patient Visit Plantar warts Consult (Routine/Next Available) - Specialty Report Received Specialty Diagnoses / Procedures Referred By Contact Refer red To Contact Orthopedic Surgery Diagnoses Plantar wart of left foot Marcy Alvarenga [facility], SALES CORRESPONDENCE CLERK [address], [address] [place] [address] [address] [place] [address] [place] [address] Referral ID Status Reason Start Expiration Visits Visits Date Date Requested Authorized [id number] Specialty Specialty 05/01/2020 1 1 Report Services Received Required Encounter Details Date Type Department Care Team Description 05/18/2020 Office Visit [facility] - Perlita Mcmahon P lantar verruca (Primary Dx); [facility] Orthopedics & DPM Digital mucous cyst of toe Podiatry [address] [place] [address] [place] [address] [address] [place] [address] [place] [address] (Wo rk) Social History Tobacco [...] swab 1 nael applied topically PRN ??? gwpkubd-zfn-pfxzz-tenof ALAFEN (GENVOYA) [id number] mg tablet Take 1 Tab by mouth [...] Office Visit Infectious Disease Lilian Rushing MD [address] [place] [address] [address] [place] [address] (Wo rk) documented as of this encounter Visit Diagnoses Diagnosis Plantar verruca - Primary Plantar wart Digital mucous cyst of toe documented in this encounter Care Teams Energy Specialist Relationship Specialty Start Date End Date Gil-Marcy Santos, PCP - General Family Medicine - Primary 1 11/13/18 SALES CORRESPONDENCE CLERK Care [address] [place] [address] 2 [place] [address] documented as of this encounter
--- OUTSIDE RECORDS SUMMARY | 2022-03-13 20:35 | XMS_ITS | Encounter Summary ---
:1965 Author Organization [facility] Address [address] [place] [address] Care Team Providers Name Role Phone Marcy Alvarenga LOAN CLOSER Primary Care Provider [phone] Reason for Visit Reason Comments Pain Encounter Details Date Type Department Care Team Description 12/05/2019 Office Visit [facility] [place] Bravo thritis of left [facility] Orthopedics & PRINCE Diaz knee (Primary Dx) Sport Medicine [address] [place] [address], [facility] ad [address] [place] [address] [place], [place] [address] (Wo rk) Social History Tobacco Use Types [...] the care of infectious disease here at [facility] for ongoing care of HIV. He has an appointment with Dr. Rushing later in the day today. He states that he has significant knee pain, every once in a while it will flare, and become swollen, difficult to walk on. 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 Taking care of his aging parents in [place]. He denies any prior history of injury [...] hyperplasia) ??? HIV (human immunodeficiency virus infection) ([facility]) ??? Hypertension Social History Tobacco [...] swab 1 nael applied topically PRN ??? ldokpyz-bxi-jtdcw-tenof ALAFEN (GENVOYA) [phone] mg tablet Take 1 Tab by mouth [...] Visit Infectious Disease Lilian Rushing MD [address] [facility], [address] [place] [address] (Wo rk) documented as of this encounter Procedures Procedure Name Priority Date/Time Associated Diagnosis Comme nts LDL CHOL DIRECT - Routine 12/05/2019 16:30 Arthritis of left R esults for this [facility] EST knee procedure are i n the results section. documented in this encounter Results LDL CHOL DIRECT - [facility] (12/05/2019 16:30 EST) LDL CHOLESTEROL 96 mg/dL [facility] Comment: MED CENTER LAB The National Cholesterol Education Program Adult Treat ment Panel III (NCEP-ATP III) provides the following classifications of LDL: Category ? mg/dl Optimal ?<100 ? Near Optimal ? 100-129 Borderline High ?130-159 High ? 160-189 Very High ?> or = 190 Specimen Performing Organization Address City/State/ZIP Code Phon e Number [facility] [address] [place], [place] [address] [place] [address] LAB documented in this encounter Visit Diagnoses Diagnosis Arthritis of left knee - Primary Unspecified arthropathy, lower leg documented in this encounter Care Teams Manager Of Corporate Relationship Specialty Start Date End Date Marcy Alvarenga, PCP - General Family Medicine - Primary 1 11/13/18 LOAN CLOSER Care [address] [place] [phone] documented as of this encounter
--- OUTSIDE RECORDS SUMMARY | 2022-03-13 20:35 | XMS_ITS | Encounter Summary ---
:1965 Author Organization [facility] Address [address] [place] [address] Care Team Providers Name Role Phone None, Provider Primary Care Provider Unavailable Reason for Visit Reason Onset Date Comments Follow-up 07/04/2019 Encounter Details Date Type Department Care Team Description 07/04/2019 Telephone [facility] Urgent Betina Hebert er Follow-up Care - January Carl jeri Lyons MD [address] [facility] [address] [place] [address] [facility] [phone] [place], [place] [address] (Wo rk) Social History Tobacco Use Types [...] this encounter Miscellaneous Notes Telephone Encounter - Gena De Leon RN - 07/04/2019 4519 EDT Spoke with Quentin at [place] [facility], reviewed labs and treatment elephone Encounter - Jose Juan Morejon 07/04/2019 0945 EDT [facility] of Health calling to follow up on reportable disease from 06.23.19 documented in this encounter Plan of Treatment Upcoming Encounters Date Type Specialty Care Team Description 04/14/2022 Office Visit Infectious Disease Lilian Rushing MD [address] [place] [address], [address] [place] [address] (Wo rk) documented as of this encounter Visit Diagnoses Not on filedocumented in this encounter Care Teams Patrol Community Service Officer Relationship Specialty Start Date End Date None, Provider PCP - General 06/23/19 09/12/19 documented as of this encounter
--- OUTSIDE RECORDS SUMMARY | 2022-03-13 20:35 | XMS_ITS | Encounter Summary ---
:1965 Author Organization [facility] Address [address] [place] [address] Care Team Providers Name Role Phone Marcy Alvarenga SENIOR RISK ANALYST Primary Care Provider [phone] Reason for Visit Reason Comments Other ASYMPTOMATIC HIV/AIDS Encounter Details Date Type Department Care Team Description 03/07/2020 Nurse Only [facility] Mobile Scre ening for viral [facility] Testing disea se (Primary Dx) - [facility] - Mobile Testing Department [address] [place] [address] Social History Tobacco Use Types [...] other viral disease, Z11.59 Nurse Encounter charge [id number] ampKevin sadler APRN - 03/07/2020 5738 EDT Swab obtained patient tolerated well. documented in this encounter Plan of Treatment Upcoming Encounters Date Type Specialty Care Team Description 04/14/2022 Office Visit Infectious Disease Lilian Rushing MD [address] [place] [address], [address] [place] [address] (Wo rk) documented as of this encounter Procedures Procedure Name Priority Date/Time Associated Comments Diagnosis COVID-19 TESTING Routine 03/07/2020 14:37 Results for this EDT procedure are i n the results section. SHIGA TOXINS 1 & 2 - Routine 03/07/2020 13:30 Res ults for this [facility] EDT procedure are i n the results section. URINALYSIS/COMPLETE - Routine 03/07/2020 13:30 Re sults for this [facility] EDT procedure are i n the results section. COMPLETE BLOOD COUNT Routine 03/07/2020 13:30 Res ults for this WITH DIFFERENTIAL EDT procedure are in (AUTO) the results section. HIV 1 RNA Routine 03/07/2020 13:30 Results for this QUANTITATION EDT procedure are i n the results section. documented in this encounter Results COVID-19 TESTING (03/07/2020 14:37 EDT) Performing Lab AB [address] [facility] LAb [facility] Comment: MED CENTER LAB Is Patient Admitted or Awaiting Admission?:NO NOTE: RESULTS HAVE BEEN REFORMATTED PLEASE REVIEW RESULTS CAREFULLY THE LOCATION OF INFORMATION MAY HAVE CHANGED Test performed or referred by [facility] [address] [facility], [place] [address] COVID-19 rt-PCR Not Detected Negative [facility] Result Comment: [facility] Negative results do not preclude 2019-nCoV infection a nd should not be used as the sole basis for treatment or other patient management decisions. Negative results must be combined with clinical observations, patient history, and epidemiological information. This test was developed and its performance characteri stics determined by [facility]. It has not been cleared or [...] by the FDA Performed on the [employer]. Specimen Performing Organization Address City/[facility]/ZIP Code Phon e Number [facility] [address] [place], [place] [id number] [place] [address] LAB SHIGA TOXINS 1 & 2 - [facility] (03/07/2020 13:30 EDT) Pathologist [facility] E.COLI SHINGA E.COLI SHIGA TOXIN 1 [facility] TOXIN 1 [facility] NOT DETECTED [facility] E.COLI SHIGA TOXIN E.COLI SHIGA TOXIN 2 [facility] T 2 [facility] NOT DETECTED [facility] E.COLI [id number] [facility] NO SALMONELLA OR [facility] SHIGELLA ISOLATED [facility] NO CAMPYLOBACTER SP. [facility] ISOLATED [facility] Specimen Stool specimen (specimen) Performing Organization Address City/[facility]/ZIP [facility] Phon e Number [facility] [address] [place], [place] [id number] [place] [address] LAB (ABNORMAL) HIV 1 RNA QUANTITATION (03/07/2020 13:30 EDT) HIV-1 RNA QUANT - <20 (A) Undetected [facility] Comment: [facility] INFCE Result Units: copies/mL Result [...] performed using the rafael HIV-1 test ([employer] with the rafael xLander.ru0 System. This test has been modified from the power generation plant operator's instructions. Its performance characteristics were determined by [facility] in a manner consistent with CLIA requirements. This test has not been cleared or approv ed by the U.S. Food and Drug Administration. Test Performed by: [facility] [place] [address] Labor Expediter: Pritesh Mcgee M.D. Ph.D.; CLIA# [id number] Specimen Performing Organization Address City/State/[facility] Code Phon e Number [facility] [address] [place], [place] [id number] [place] [address] LAB URINALYSIS/COMPLETE - [facility] (03/07/2020 13:30 EDT) URINE APPEARANCE - Clear CLEAR [facility] URINE BACTERIA - NEG [facility] URINE BILIRUBIN - 1+ NEGATIVE [facility] DIPSTICK [facility] Comment: [facility] Unable to confirm positive urine bilirubin. If clinica l correlation is inconsistent, consider serum bilirubin. URINE BLOOD - [facility] Negative NEG [facility] URINE COLOR - [facility] Yellow YELLOW [facility] URINE GLUCOSE - Negative NEGATIVE [facility] DIPSTICK [facility] URINE KETONE - [facility] Negative NEGATIVE [facility] URINE LEUK ESTERASE Negative NEG [facility] URINE MUCUS - [facility] FEW [facility] URINE NITRITE - Negative NEG [facility] DIPSTICK [facility] URINE PH - [facility] 6.5 4.0 - 8.0 [facility] URINE PROTEIN - Negative NEG [facility] DIPSTICK [facility] URINE RBC - [facility] 1-3 rbc/hpf [facility] URINE SPECIFIC 1.020 1.001 - 1.035 [facility] GRAVITY - [facility] LAB URINE SQUAMOUS RARE NEG #/hpf [facility] CELLS - [facility] LAB URINE UROBILINOGEN 0.2 0.2 - 1.0 [facility] - DIPSTICK - [facility] LAB URINE WBC - [facility] RARE NEG wbc/hpf [facility] Specimen Performing Organization Address City/State/ZIP Code Phon e Number [facility] [address] [place] [address] [facility] (ABNORMAL) COMPLETE BLOOD COUNT WITH DIFFERENTIAL (AUTO) (03/07/2020 13:30 EDT) Pathologist Sig nature Gran # 5.5 2.2 - 8.85 [facility] 10e3/uL [place] [facility] BASO # - [facility] 0.03 0.01 - 0.11 [facility] 10e/uL [place] [facility] BASO % - [facility] 0 0 - 2 % [facility] EOS # - [facility] 0.07 0.03 - 0.61 [facility] 10e3/ul [place] [facility] EOS % - [facility] 1 0 - 5 % [facility] GRAN % - [facility] 61.0 40 - 80 % [facility] HEMATOCRIT - [facility] 39.2 (L) 39.5 - 50.2 % [facility] HEMOGLOBIN - [facility] 13.4 (L) 13.8 - 17.3 [facility] g/dl [place] [facility] IG# - [facility] 0.08 0 - 0.7 10e3/uL [facility] IG% - [facility] 0.9 0 - 0.9 % [facility] LYMPH # - [facility] 2.2 1.09 - 3.3 [facility] 10e3/ul [place] [facility] LYMPH% - [facility] 24.5 20 - 40 % [facility] MEAN CORPUSCULAR HGB 30.1 27.6 - 33.0 pg [facility] ME D - [facility] MEAN CORPUSCULAR HGB 34.2 32.8 - 36.4 [facility] CONC [facility] g/dL [place] [facility] MEAN CELL VOLUME - 88.1 81 - 95 fl [facility] MONO # - [facility] 1.1 (H) 0.1 - 0.8 [place] [id number] MONO% - [facility] 12.5 (H) 0 - 12 % [facility] PLATELET COUNT 390 (H) 141 - [address] LAB RED BLOOD COUNT - 4.45 4.36 - 5.78 [facility] 10e3/[facility] LAB RED CELL DISTRI WIDTH 13.2 <14.2 % [facility] WHITE BLOOD COUNT - 8.9 4.0 - 10.[address] LAB Specimen Performing Organization Address City/State/ZIP Code Phon e Number [facility] [address] [place] [address] [facility] documented in this encounter Visit Diagnoses Diagnosis Screening for viral disease - Primary Special screening examination for unspec ified viral disease documented in this encounter Care Teams Communications Programmer Relationship Specialty Start Date End Date Marcy Alvarenga, PCP - General Family Medicine - Primary 1 11/13/18 SENIOR RISK ANALYST Care [address] [place] [phone] documented as of this encounter
--- OUTSIDE RECORDS SUMMARY | 2022-03-13 20:35 | XMS_ITS | Encounter Summary ---
:1965 Author Organization [facility] Address [address] [place] [address] Care Team Providers Name Role Phone None, Provider Primary Care Provider Unavailable None, Provider Primary Care Provider Unavailable Encounter Details Date Type Department Care Team Description 05/30/2019 Historical Results [facility] - Lilian Rushing, Only [facility] Lab - Main [facility] [address] [place] [address] [address] [place] [address] MOB-C, [place] [address] Social History Tobacco Use Types [...] Lilian Rushing MD 130 [facility] [address], [address] [place] [address] (Wo rk) documented as [...] Routine 05/30/2019 13:01 Resu lts for this ROGERS EDT procedure are i n the results section. documented in this encounter Results RUBELLA IGG ANTIBODY (05/30/2019 13:09 EDT) RUBELLA IGG Positive [facility] - [facility] Comment: MED CENTER LAB Expected value: Positive The presence of Rubella IgG suggest immunity against r ubella Specimen Narrative [facility] - 14:32 EDT Does PT Have a Latex Allergy? NO Performing Organization Address [facility] Code Phon e [facility] LAB [address] [place] [address] LAB VARICELLA IGG ANTIBODY (05/30/2019 13:09 EDT) Varicella IgG Ab PositiveComment: Negative [facility] Presumed immune to CENTER LAB Varicella infection. Specimen Narrative [facility] - 22:43 EDT Does PT Have a Latex Allergy? NO Performing Organization Address City/[facility]/ZIP Code Phon e [facility] [address] [place] [address] LAB MEASLES IGG AB (05/30/2019 13:09 EDT) Pathologist Sig nature RUBEOLA IGG ANTIBODY - Negative Negative [facility] D [facility] CENTER LAB Specimen Narrative [facility] - 22:43 EDT Does PT Have a Latex Allergy? NO Performing Organization Address City/State/ZIP Code Phon e [facility] [address] LAB MUMPS ANTIBODY IGG (05/30/2019 13:09 EDT) Pathologist Sig nature Mumps Ab, IgG, S PositiveComment: Negative [facility] Presumed immune to CENTER LAB Mumps infection. Specimen Narrative [facility] - 22:43 EDT Does PT Have a Latex Allergy? NO Performing Organization Address City/State/ZIP Code Phon e Number [facility] [address] [place] [address] [facility] MISCELLANEOUS TEST, ROGERS (05/30/2019 13:01 EDT) [facility] MISCELLANEOUS TEST - SEE BELOW () [facility] Comment: [facility] Test ? Result ?F lag ??Unit ?? RefValue ------ Fungitell, Serum ? <31 ? pg/mL ??<80 ? Interpretation: The Fungitell assay does not detect ce rtain fungal species such as the genus Cryptococcus (Mony et al. 1991) which produces very low levels of (1-3)-Zayv-U-Xqdliz. The assay also does not detect th e Zygomycetes such as Absidia, Mucor and Rhizopus (Susan trinidad et al. 1994) which are not known to produce (1-3)-Yzqm-C-Picdxf. In addition, the yeast phase of Blastomyces dermatitidis produces little (1-3)-Cakj-A-Ooigdp and may not be detected by the [...] false positive results, interpret positive [facility] provided in pour-off tubes with caution. [...] for these modifica tions were determined by [employer]. If sample result is greater than 500 pg/mL, physician may order a titer of the sample. Please contact [employer] if you would l kristi to order a retest of this sample to obtain an actual v alue. Samples are held for 1 week after initial testing date . Test Performed by: [employer], Interface [address] [place] [address] Specimen Performing Organization Address City/State/ZIP Code Phon e Number [facility] [address] LAB documented in this encounter Visit Diagnoses Not on filedocumented in this encounter Care Teams Talent Acquisition Assistant Relationship Specialty Start Date End Date None, Provider PCP - General 04/22/19 06/22/19 None, Provider PCP - General 06/23/19 09/12/19 documented as of this encounter
--- OUTSIDE RECORDS SUMMARY | 2022-03-13 20:35 | XMS_ITS | Encounter Summary ---
:1965 Author Organization [facility] Address [address] [place] [address] Care Team Providers Name Role Phone None, Provider Primary Care Provider Unavailable Encounter Details Date Type Department Care Team Description 09/01/2019 Results Only [facility] - [facility] Lilian Rushing MD Lab - [facility] [address] [place] [address] [place] [address] (Wo rk) Social History Tobacco [...] Visit Infectious Disease Lilian Rushing MD 130 [facility] [address], [address] [place] [address] (Wo rk) documented as [...] nature APID PLASMA REAGIN - Nonreactive NEG [facility] Specimen Performing Organization Address City/[facility]/ZIP [facility] Phon e Number [facility] [address] LAB (ABNORMAL) IMMUNODEFICIENCY PANEL (09/01/2019 11:45 EST) Pathologist [facility] % CD3 60 (A) 62 - 87 % [facility] % CD4 27 (A) 35 - 63 % [facility] % CD8 29 10 - 35 % [facility] Absolute CD4 403 329 - 1,427 [facility] Comment: cells/uL [facility] Reviewed by Dr. Miracle Dominguez Test performed [place] [address] Specimen Performing Organization Address City/State/ZIP [facility] Phon e Number [facility] [address] LAB HIV 1 RNA QUANTITATION (09/01/2019 11:45 EST) Pathologist [facility] HIV-1 RNA QUANT - Undetected Undetected [facility] Comment: [facility] INFCE Result Units: copies/mL Result in log copies/mL is Undetected. ADDITIONAL INFORMATION ------ The quantification range of this assay is 20 to 10,000 ,000 copies/mL (1.30 log to 7.00 log copies/mL). Testing wa s performed using the rafael HIV-1 test ([employer] with the rafael 6800 System. This test has been modified from the oil change technician's instructions. Its performance characteristics were determined by [facility] in a manner consistent with CLIA requirements. This test has not been cleared or approv ed by the U.S. Food and Drug Administration. Test Performed by: [facility] [place] [address] Rubber Mill Operator: Pritehs Mcgee M.D. Ph.D.; CLIA# [id number] Specimen Performing Organization Address [facility] Phon e Number [facility] [address] [place] [address] LAB UA, CHEMICAL AND SEDIMENT ANALYSIS (DIPSTICK AND MICROSCOPIC) (09/01/2019 11:45 EST) Pathologist Sig nature URINE APPEARANCE - Clear CLEAR [facility] URINE BILIRUBIN - Negative NEGATIVE [facility] DIPSTICK [facility] URINE BLOOD - [facility] Negative NEG [facility] URINE COLOR - [facility] Yellow YELLOW [facility] URINE GLUCOSE - Negative NEGATIVE [facility] DIPSTICK [facility] URINE KETONE - [facility] Negative NEGATIVE [facility] URINE LEUK ESTERASE - Negative NEG [facility] URINE NITRITE - Negative [facility] URINE PH - [facility] 6.0 4.0 - 8.0 [facility] URINE PROTEIN - Negative NEG [facility] DIPSTICK [facility] URINE SPECIFIC GRAVITY 1.015 1.001 - 1.035 [facility] ED [facility] URINE UROBILINOGEN - 0.2 0.2 - 1.0 [facility] Specimen Performing Organization Address City/[facility] Phon e Number [facility] [address] LAB COMPREHENSIVE METABOLIC PANEL (CMP) (09/01/2019 11:45 EST) ALBUMIN - [facility] 3.7 3.4 - 4.9 [facility] g/dL [facility] ALKALINE 60 38 - 126 U/L [facility] PHOSPHATASE - [facility] CENTER LAB BILIRUBIN TOTAL 0.3 0.2 - 1.3 [facility] mg/dL [facility] BUN - [facility] 20 10 - 26 mg/dL [facility] CALCIUM - [facility] 9.6 8.5 - 10.5 [facility] mg/dL [facility] Chloride 99 96 - 110 [facility] mmol/L [facility] CO2 Total 31 21 - 32 mEq/L [facility] CREATININE 0.88 0.66 - 1.25 [facility] mg/dL [facility] eGFR >60 [facility] Comment: [facility] Chronic renal impairment is defined as GFR <60 Multiply result by 1.210 for patients . Anion Gap 6 0 - 18 [facility] GLUCOSE - [facility] 85 70 - 100 [facility] mg/dL [facility] Potassium 4.4 3.5 - 5.0 [facility] mEq/L [facility] Sodium 136 136 - 145 [facility] mEq/L [facility] TOTAL PROTEIN - 6.9 6.2 - 8.2 [facility] gm/dL [facility] SGOT/AST - [facility] 17 17 - 59 U/L [facility] SGPT/ALT - [facility] 21 21 - 72 U/L [facility] Specimen Performing Organization Address City/State/ZIP Code Phon e Number [facility] [address] LAB (ABNORMAL) COMPLETE BLOOD COUNT WITH DIFFERENTIAL (AUTO) (09/01/2019 11:45 EST) Pathologist Sig nature ABSOLUTE NEUTROPHIL 4.6 2.2 - 8.85 [facility] COUN - [facility] 10e3/uL CENTER LAB BASO # - [facility] 0.01 0.01 - 0.11 [facility] 10e/uL [facility]ENTER [facility] BASO % - [facility] 0 0 - 2 % [facility] EOS # - [facility] 0.06 0.03 - 0.61 [facility] 10e3/ul [facility]ENTER LAB EOS % - [facility] 1 0 - 5 % [facility] GRAN % - [facility] 68.3 40 - 80 % [facility] HEMATOCRIT - [facility] 40.0 39.5 - 50.2 % [facility] HEMOGLOBIN - [facility] 13.3 (L) 13.8 - 17.3 [facility] g/dl [place] [facility] IG# - [facility] 0.03 0 - 0.7 10e3/uL [facility] IG% - [facility] 0.4 0 - 0.9 % [facility] LYMPH # - [facility] 1.5 1.09 - 3.3 [facility] 10e3/ul [place] [facility] LYMPH% - [facility] 22.0 20 - 40 % [facility] MEAN CORPUSCULAR HGB 29.6 27.6 - 33.0 pg [facility] ME D - [facility] LAB MEAN CORPUSCULAR HGB 33.3 32.8 - 36.4 [facility] CONC - [facility] g/dL [facility]ENTER LAB MEAN CELL VOLUME - 88.9 81 - 95 fl [facility]ENTER LAB MONO # - [facility] 0.6 0.1 - 0.8 [facility] 10e3/uL [place] MONO% - [facility] 8.3 0 - 12 % [facility] PLATELET COUNT 290 141 - 377 [facility] 10e3/ul [place] [facility] RED BLOOD COUNT - 4.50 4.36 - 5.78 [facility] 10e3/ul [place] [facility] RED CELL DISTRI WIDTH 14.2 <14.2 % [facility] WHITE BLOOD COUNT - 6.7 4.0 - 10.4 [facility] 10e3/ul [place] [facility] Specimen Performing Organization Address City/State/ZIP Code Phon e Number [facility] [address] [place], [place] [id number] [place] [address] LAB documented in this encounter Visit Diagnoses Not on filedocumented in this encounter Care Teams Wood Finisher Apprentice Relationship Specialty Start Date End Date None, Provider PCP - General 06/23/19 09/12/19 documented as of this encounter
--- OUTSIDE RECORDS SUMMARY | 2022-03-13 20:35 | XMS_ITS | Encounter Summary ---
:1965 Author Organization [facility] Address [address] [place] [address] Care Team Providers Name Role Phone Marcy Alvarenga TOOL HARDENER Primary Care Provider [phone] Reason for Visit Reason Onset Date Comments Billing Question 11/22/2019 Encounter Details Date Type Department Care Team Description 11/22/2019 Telephone [facility] - [facility] Lilian Rushing MD Billing Question Infectious Disease 130 [facility] 130 [facility]-, [address] [place], [place] [address] [place] [phone] (Wo rk) Social History Tobacco Use Types [...] Encounter - Aissatou Iraheta RN - 11/30/2019 0871 EST Pt has appt tomorrow. I will [...] Visit Infectious Disease Lilian Rushing MD [address] [place] [address] [address] [place] [address] (Wo rk) documented as of this encounter Visit Diagnoses Not on filedocumented in this encounter Care Teams Pulp Screen Operator Relationship Specialty Start Date End Date Gil-Marcy Santos, PCP - General Family Medicine - Primary 1 11/13/18 TOOL HARDENER Care [address] [place] [address] [address] [place] [address] documented as of this encounter
--- OUTSIDE RECORDS SUMMARY | 2022-03-13 20:35 | XMS_ITS | Encounter Summary ---
:1965 Author Organization [facility] Address [address] [place] [address] Care Team Providers Name Role Phone Marcy Alvarenga MARINE MECHANIC Primary Care Provider [phone] Reason for Visit Reason Onset Date Comments Medications Refill 04/18/2020 Encounter Details Date Type Department Care Team Description 04/18/2020 Telephone [facility] - [facility] Lilian Rushing MD Medications Refill Infectious Disease 130 [facility] 130 [facility]-, [address] [place], [place] [address] [place] [address] [phone] (Wo rk) Social History Tobacco Use [...] 90 Cap 3 04/18/2020 05/01/2021 capsule daily. oxnvmqn-zmn-xdbaa-tenof Take 1 Tab by mouth 90 Tab 1 06/04/2020 ALAFEN (GENVOYA) daily for 90 days. [phone] mg tabletIndications: HIV infection documented in this encounter Miscellaneous Notes Telephone Encounter - Aissatou Iraheta RN - 04/19/2020 0930 EDT Left detailed message with the below information. I advised he call PCP at [phone] to set up an appt. elephone Encounter [...] all. He said they should go to [facility] in [place]. If Dr. Rushing doesn't rx all these can you call patient to discuss he may be a little confused about his meds. [phone] signed by Shefali Hamm at 04/18/2020 9:28 EDTdocumented in this encounter Plan of Treatment Upcoming Encounters Date Type Specialty Care Team Description 04/14/2022 Office Visit Infectious Disease Lilian Rushing MD [address] [place] [address], [address] [place], [place] [phone] (Wo rk) documented as of this encounter Visit Diagnoses Not on filedocumented in this encounter Discontinued Medications Medication Sig Discontinue Reason Start Date End Date yxupmrk-drc-scrmx-tenof Take 1 Tab by Reorder 10/17/2019 ALAFEN (GENVOYA) mouth daily for 90 [phone] mg days. tabletIndications: HIV infection tamsulosin (FLOMAX) 0.4 mg Take 1 Cap by Reorder 02/15/2020 04/18/2020 capsule mouth daily. lisinopril (PRINIVIL) 10 Take 10 mg by Reorder mg tabletIndications: mouth daily. hypertension documented as of this encounter Care Teams Real Estate Development Manager Relationship Specialty Start Date End Date Marcy Alvarenga, PCP - General Family Medicine - Primary 1 11/13/18 MARINE MECHANIC Care [address] [place] [address] [address] [place] [address] documented as of this encounter
--- OUTSIDE RECORDS SUMMARY | 2022-03-13 20:35 | XMS_ITS | Encounter Summary ---
:1965 Author Organization [facility] Address [address] [place] [address] Care Team Providers Name Role Phone Marcy Alvarenga STERILE TECHNICIAN Primary Care Provider [phone] Encounter Details Date Type Department Care Team [...] Visit Infectious Disease Lilian Rushing MD [address] [place] [address], [address] [place] [address] (Wo rk) documented as of this encounter Visit Diagnoses Not on filedocumented in this encounter Care Teams Prop Cutter Relationship Specialty Start Date End Date Marcy Alvarenga, PCP - General Family Medicine - Primary 1 11/13/18 STERILE TECHNICIAN Care [address] [place] [phone] documented as of this encounter
--- OUTSIDE RECORDS SUMMARY | 2022-03-13 20:35 | XMS_ITS | Encounter Summary ---
:1965 Author Organization [facility] Address [address] [place] [address] Care Team Providers Name Role Phone None, Provider Primary Care Provider Unavailable Reason for Visit Reason Onset Date Comments Abnormal Lab 06/24/2019 Encounter Details Date Type Department Care Team Description 06/24/2019 Telephone [facility] Urgent Sandra Pulliam RN Abnormal Lab Care - January wilcox [address] [place] [address] Social History Tobacco Use Types Packs/Day Years [...] Vita Morris RN - 06/24/2019 1607 EDT Patent Legal Assistant called and informed pt of positive gonorrhea [...] Visit Infectious Disease Lilian Rushing MD [address] [place] [address], [address] [place], [place] [phone] (Wo rk) documented as of this encounter Visit Diagnoses Not on filedocumented in this encounter Care Teams Foam Fabricator Relationship Specialty Start Date End Date None, Provider PCP - General 06/23/19 09/12/19 documented as of this encounter
--- OUTSIDE RECORDS SUMMARY | 2022-03-13 20:35 | XMS_ITS | Encounter Summary ---
:1965 Author Organization [facility] Address [address] [place] [address] Care Team Providers Name Role Phone Marcy Alvarenga INSPECTING ENGINEER Primary Care Provider [phone] Encounter Details Date Type Department Care Team [...] Visit Infectious Disease Lilian Rushing MD [address] [place] [address], [address] [place] [phone] (Wo rk) documented as of this encounter Visit Diagnoses Not on filedocumented in this encounter Care Teams Superintendent Building Relationship Specialty Start Date End Date Marcy Alvarenga, PCP - General Family Medicine - Primary 1 11/13/18 INSPECTING ENGINEER Care [address] [place] [phone] documented as of this encounter
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
--- OUTSIDE RECORDS SUMMARY | 2022-03-13 20:35 | XMS_ITS | Encounter Summary ---
:1965 Author Organization [facility] Address [address] [place] [address] Care Team Providers Name Role Phone Marcy Alvarenga [employer]EE [employer] ESTATE Primary Care Provider [phone] Reason for Visit Reason Comments Labs Only Encounter Details Date Type Department Care Team Description 03/07/2020 Nurse Only [facility] - Nurse, [facility] [place] er for immunization (Primary Dx); [facility] Infectious Infectious Disease Asympt omatic HIV infection ([facility]); Disease Medication monitoring encoun ter; [address] [place], [place] [address] Social History Tobacco Use Types Packs/Day Years [...] mg tablet Clindamycin Phosphate 1 % swab lfpipbx-eas-pcomp-tenof ALAFEN (GENVOYA) [phone] mg tablet lisinopril (PRINIVIL) 10 mg tablet [...] testing. He has a flight planned to [place] tomorrow. I advised he self-isolate until he gets his results back. He verbalized understanding but stated he really needs to take this flight down to [place]. Will try to get testing set up today at [facility]. Pt is aware the scheduling team will be calling him. Aissatou Iraheta RN [facility] Infectious Disease Office: [phone] CC: Lilian Rushing MD documented in this encounter Plan of Treatment Upcoming Encounters Date Type Specialty Care Team Description 04/14/2022 Office Visit Infectious Disease Lilian Rushing MD [address] [place] [address], [address] [place] [address] (Wo rk) Scheduled Orders [...] % CD3 75 62 - 87 % [facility] % CD4 33 (A) 35 - 63 % [facility] % CD8 37 (A) 10 - 35 % [facility] Absolute CD4 [phone] [facility] Comment: Cells/uL [facility] Test performed or referred by The [address] [address] Specimen Blood - Venous blood (substance) Performing Organization Address [facility] Phon e Number [facility] [address] [place] [address] [facility] (ABNORMAL) BASIC METABOLIC PANEL (BMP) (03/07/2020 13:30 EDT) BUN - [facility] 31 (H) 10 - 26 mg/dL [facility] CALCIUM - [facility] 9.6 8.5 - 10.5 [facility] mg/dL [facility] Chloride 99 96 - 110 [facility] mmol/L [facility] CO2 Total 27 21 - 32 mEq/L [facility] CREATININE 1.03 0.66 - 1.25 [facility] mg/dL [facility] eGFR >60 [facility] Comment: [facility]ENTER [facility] Chronic renal impairment is defined as GFR <60 Multiply result by 1.210 for patients . Anion Gap 8 0 - 18 [facility] GLUCOSE - [facility] 103 (H) 70 - 100 mg/dL [facility] Potassium 4.5 3.5 - 5.0 [facility] mEq/L [facility] Sodium 134 (L) 136 - 145 [facility] mEq/L [facility] Specimen Blood - Venous blood (substance) Performing Organization Address [facility] Phon e Number [facility] [address] [place] [address] [facility] documented in this encounter Visit [...] 03/07/2020 documented in this encounter Care Teams Director Fraud Relationship Specialty Start Date End Date Gil-Marcy Santos, PCP - General Family Medicine - Primary 1 11/13/18 [employer] Care [address] [place] [phone] documented as of this encounter
--- OUTSIDE RECORDS SUMMARY | 2022-03-13 20:35 | XMS_ITS | Encounter Summary ---
:1965 Author Organization [facility] Address [address] [place] [address] Care Team Providers Name Role Phone Marcy Alvarenga JUKEBOX COIN COLLECTOR Primary Care Provider [phone] Reason for Visit Reason Comments Follow-up HIV Infection Encounter Details Date Type Department Care Team Description 12/05/2019 Office Visit [facility] - Lilian Rushing Asy mptomatic HIV infection ([facility]) (Primary Dx); [facility] Infectious MD Chronic knee pain, unspecified lateralit y; Disease [address] Encounter for immunization; [address], [address] Essential hypertension; [place] [address] [place], [place] Screening for diabetes michael snell; [phone] Screening for hyperlipidemia; [phone] Medication kana boogie encounter (Work) Social History [...] creatinine. Remote h/o coccidioidomycosis. He move to [facility] from [place] in the summer of 2018 to take care of his aging parents, but is planning on moving at some point. 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 He is now set up with [facility] for his HIV meds. Today, he is [...] No sexual activity. Was seen up at [facility] for symptoms of gonorrhea - tested positive, [...] Quantitation ??? Hemoglobin A1c ??? LDL, Direct ([facility]) I spent a total of 40 minutes in [id number]-tl-[id number] time with this patient with 25 minutes of that time spent in counseling and coordination of care as described in the progress note. Lilian Rushing MD, MPH [facility] Infectious Disease Office: [phone] CC: referring provider, PCP?? documented in this encounter Plan of Treatment Upcoming Encounters Date Type Specialty Care Team Description 04/14/2022 Office Visit Infectious Disease Lilian Rushing MD [address] [facility], [address] [place] [address] (Wo rk) Scheduled Orders Name Type Priority Associated Diagnoses Order S chedule LDL, DIRECT ([facility] Routine Asymptomatic HIV infecti on Ordered: 12/05/2019 MEDICAL CENTER) ([facility] Essential hypert ension Screening for hy perlipidemia Medication monitoring encounter documented as of this encounter Procedures Procedure Name Priority Date/Time Associated Diagnosis Comme nts HIV 1 RNA Routine 12/05/2019 16:30 Asymptomatic HIV Results for this QUANTITATION EST infection ([facility]) procedure are in Medication the results monitoring encounter section . HEMOGLOBIN A1C Routine 12/05/2019 16:30 Asymptomatic HIV Resul ts for this EST infection ([facility]) procedure are in Essential the results hypertension section. Screening for diabetes mellitus documented in this encounter Results HEMOGLOBIN A1C (12/05/2019 16:30 EST) Hemoglobin A1c 5.5 4.0 - 6.0 % [facility] Comment: [facility] [place] [facility] > or =18 years: ??Increased risk for diabetes (prediabetes): 5.7-6.4% Diabetes: > or =6.5% Therapeutic goals for glycemic control (ADA) Adults: - Goal of therapy: <7.0% HbA1c - Action suggested: >8.0% HbA1c Pediatric patients: - Toddlers and preschoolers: <8.5% (but >7.5%) - School age (6-12 years): <8% - Adolescents and young adults (13-19 years): <7.5% Est Avg Glucose 111 mg/dL [facility] Specimen Blood - Venous blood (substance) Performing Organization Address City/State/ZIP Code Phon e Number [facility] [address] [place] [address] [facility] HIV 1 RNA QUANTITATION (12/05/2019 16:30 EST) HIV-1 RNA QUANT - <20 Undetected [facility] Comment: MED CENTER LAB INFCE [...] performed using the rafael HIV-1 test ([employer] with the rafael 6800 System. This test has been modified from the multimedia designer's instructions. Its performance characteristics were determined by [facility] in a manner consistent with CLIA requirements. This test has not been cleared or approv ed by the U.S. Food and Drug Administration. Test Performed by: [place] [address] Drawing Machine Operator: Pritesh Mcgee M.D. Ph.D.; CLIA# [id number] Specimen Blood - Venous blood (substance) Performing Organization Address City/State/ZIP Code Phon e Number [facility] [address] LAB documented in this encounter Visit [...] 2019 documented in this encounter Care Teams Fretted Instrument Repairer Relationship Specialty Start Date End Date Gil-Marcy Santos, PCP - General Family Medicine - Primary 1 11/13/18 JUKEBOX COIN COLLECTOR Care [address] [place] [phone] documented as of this encounter
--- OUTSIDE RECORDS SUMMARY | 2022-03-13 20:35 | XMS_ITS | Encounter Summary ---
:1965 Author Organization [facility] Address [address] [place] [address] Care Team Providers Name Role Phone None, Provider Primary Care Provider Unavailable None, Provider Primary Care Provider Unavailable Encounter Details Date Type Department Care Team Description 04/28/2019 Historical Results [facility] - Lilian Rushing, Only [facility] - Main [facility] [address] [facility] [address] [place] [address] [address], [place] [address] Social History Tobacco Use Types [...] Lilian Rushing MD [address] [facility] [address], [address] [place] [address] (Wo rk) documented as of this encounter Procedures Procedure Name Priority Date/Time Associated Comments Diagnosis HIV 1 RNA Routine 04/28/2019 13:43 Results for this QUANTITATION EDT procedure are i n the results section. documented in this encounter Results HIV 1 RNA QUANTITATION (04/28/2019 13:43 EDT) HIV-1 RNA QUANT - Undetected Undetected [facility] Comment: [facility] INFCE Result Units: copies/mL Result in log copies/mL is Undetected. ADDITIONAL INFORMATION ------ The quantification range of this assay is 20 to 10,000 ,000 copies/mL (1.30 log to 7.00 log copies/mL). Testing wa s performed using the rafael HIV-1 test ([employer] with the rafael [employer] System. This test has been modified from the contact representative's instructions. Its performance characteristics were determined by [facility] in a manner consistent with CLIA requirements. This test has not been cleared or approv ed by the U.S. Food and Drug Administration. Test Performed by: [facility] - [address] [facility] - 019 19:31 EDT Does PT Have a Latex Allergy? NO Performing Organization Address City/State/ZIP Code Phon e Number [facility] [address] LAB documented in this encounter Visit Diagnoses Not on filedocumented in this encounter Care Teams Fertilizer Processing Supervisor Relationship Specialty Start Date End Date None, Provider PCP - General 04/22/19 06/22/19 None, Provider PCP - General 06/23/19 09/12/19 documented as of this encounter
--- OUTSIDE RECORDS SUMMARY | 2022-03-13 20:35 | XMS_ITS | Encounter Summary ---
:1965 Author Organization [facility] Address [address] [place] [address] Care Team Providers Name Role Phone Marcy Alvarenga ORDNANCE ARTIFICER Primary Care Provider Reason for Visit Reason Comments Pain Consult (3 - 10 Business Days) - Specialty Report Received Specialty Diagnoses / Procedures Referred By Contact Refer red To Contact Orthopedic Surgery Diagnoses Arthritis of left knee Marcy Alvarenga [facility] L, ORDNANCE ARTIFICER [address], [address] [place] [address] [address] [place] [address] [place] [address] Referral ID Status Reason Start Expiration Visits Visits Date Date Requested Authorized [id number] Specialty Specialty 05/01/2020 1 1 Report Services Received Required Encounter Details Date Type Department Care Team Description 06/01/2020 Office Visit [facility] - Socorro Bravo Ar thritis of left [facility] Orth[facility]ics & PRINCE Diaz knee (Primary Dx) Sport Medicine [address] [place] [address] [address] [place] [address] [place] [address] (Wo rk) Social History Tobacco [...] EDT documented in this encounter Progress Notes Socoror Bravo PA-C - 06/01/2020 1100 EDTAssociated Order(s): [...] to verify the correct patient, procedure, equipment, field support representative and site/side marked as required. Patient was prepped anddraped in the usual sterile fashion. ahiana Brown LPN - 06/01/2020 1100 EDT CHIEF COMPLAINT: Left knee pain SUBJECTIVE: Ha Soria is a 54 y.o. male who presents today with left knee pain. 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 He is currently under the care of infectious disease here at [facility] for ongoing care of HIV. He states that he has significant knee pain, every once in a whileit will flare, and become swollen, difficult to walk on. 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 Taking care of his aging parents in [place]. He denies any prior history of injury to the left knee, but didhave a previous infection. Has known severe osteoarthritis in that knee. The past medical, family and social history have been reviewed in the patient chart. Past Medical History: Diagnosis Date ??? BPH (benign prostatic hyperplasia) ??? HIV (human immunodeficiency virus infection) ([facility]) ??? Hypertension Social History Tobacco Use [...] swab 1 nael applied topically PRN ??? wsbiafv-yud-nnpqe-tenof ALAFEN (GENVOYA) [phone] mg tablet Take 1 Tab by mouth [...] Office Visit Infectious Disease Lilian Rushing MD [address] [place] [address], [address] [place] [address] (Wo rk) documented as of this encounter Procedures Procedure Name Priority Date/Time Associated Diagnosis Comme nts LARGE JOINT Routine 06/01/2020 11:00 Arthritis of left Result s for this INJECTION/ARTHROCEN EDT knee procedur e are in TESIS the results section. documented in this encounter Results [place] ARTHROCENTESIS ASPIR&/INJ MAJOR JT/BURSA W/O US (06/01/2020 11:00 EDT) Narrative POINT OF CARE [facility] - 06/01/2020 11:00 E [...] verif y the correct patient, procedure, equipment, field support representative and site/side m arked as required. Patient was prepped and draped in the usual sterile fashion. Performing Organization Address City/State/ZIP Code Phon e Number [facility] POINT OF CARE POINT OF CARE [facility] documented in this encounter [...] Routine documented in this encounter Care Teams Utilities Operator Relationship Specialty Start Date End Date Gil-Marcy Santos, PCP - General Family Medicine - Primary 1 1/19/19 ORDNANCE ARTIFICER Care [address] [place] [phone] documented as of this encounter
--- OUTSIDE RECORDS SUMMARY | 2022-03-13 20:35 | XMS_ITS | Encounter Summary ---
:[address] [facility] Address [address] [place] [address] Care Team Providers Name Role Phone Marcy Alvarenga CLIN ASST Primary Care Provider [phone] Encounter Details Date Type Department Care Team Description 03/07/2020 Lab Requisition [facility] Outr Resulting Lab, Pathology & Laboratory Provider [facility] [address] [place] [address] Social History Tobacco Use Types Packs/Day Years [...] Visit Infectious Disease Lilian Rushing MD [address] [place] [address], [address] [place] [address] (Wo rk) documented as of this encounter Procedures Procedure Name Priority Date/Time Associated Diagnosis Comme nts COVID-19 TEST [facility] Today 03/07/2020 14:37 LAB PCR EDT COVID-19 TESTING Routine 03/07/2020 14:37 Results for this EDT procedure are i n the results section. documented in this encounter Results COVID-19 TEST [facility] LAB PCR (03/07/2020 14:37 EDT) Specimen Swab - Entire nasopharynx (body structur e) Performing Organization Address City/[facility] Phon e Number [facility] [address] [place] [address] SERVICES COVID-19 TESTING (03/07/2020 14:37 EDT) COVID-19 rt-PCR Negative Negative [facility] Result Comment: CENTER LABORATORY Negative results do not prec lude 2019-nCoV infection and should not be used as the sole basis for treatment or other patient management decisions. Negative results must be combined with clinical observa SERVICES tions, patient history, and epidemiological informatio n. This test was developed and its performance characteristics determined by [facility]. It has not been cleared or approved [...] by the FDA Performed on the [employer] [address] Fast. Performing Lab [facility] Hospital Lab [facility] SERVICES Specimen Swab - Entire nasopharynx (body structur e) Performing Organization Address City/[facility] Phon e Number [facility] [address] [place] [address] SERVICES documented in this encounter Visit Diagnoses Not on filedocumented in this encounter Additional Health Concerns Infection Onset Date Last Indicated Resolved Time MRSAComment: Hx of VGUR-Uzei-23/23/2020 08/29/2021 08/29/20 21 C. Stoner 12/31/21 documented as of this encounter Care Teams Deckhand Fishing Vessel Relationship Specialty Start Date End Date Marcy Alvarenga, PCP - General Family Medicine - Primary 1 11/13/18 CLIN ASST Care [address] [place] [phone] documented as of this encounter
--- OUTSIDE RECORDS SUMMARY | 2022-03-13 20:35 | XMS_ITS | Encounter Summary ---
:1965 Author Organization [facility] Address [address] [place] [address] Care Team Providers Name Role Phone Marcy Alvarenga CURATOR OF EDUCATION Primary Care Provider [phone] Reason for Referral Consult (Routine) - Closed Specialty Diagnoses / Procedures Referred By Contact Refer red To Contact Orthopedic Surgery Diagnoses Injury of left knee, initial encounter Sobia Brower MD [facility] [address] [place] [address] [address] [place] [address] [place] [address] Referral ID Status Reason Start Date Expiration Date Visits V isits Requested Authorized [id number] Closed Specialty 11/20/2019 1 1 Services Required [...] Type Department Care Team Description 11/20/2019 Walk-In [facility] - Sobia Brower, Inj ury of left knee, initial encounter (Primary Dx); [facility] - MD Instability of left knee joint [place] [address] [place] [address] Road [phone] [address] [place] [address] Social History Tobacco Use Types Packs/Day Years [...] Progress Notes Sobia Brower MD - 11/20/2019 6685 EST [facility] Chief Complaint(s): Chief Complaint Patient [...] upper body with the left knee planted. [place] a stretch and a pop and then [...] Infectious Disease Leyse, Lilian L, MD [address] [facility], [address] [place] [address] (Wo rk) Scheduled Orders [...] MORE VIEWS (11/20/2019 15:30 EST) Specimen Narrative RADIOLOGY - 11/20/2019 15:30 EST ? EXAM: [...] CC: ? Transcribed Date/Time: 11/20/2019 (1530) ? Yarn Salvager: ? Printed Date/Time: 11/20/2019 (15 30) ? [...] Ashtyn Seaman MD CC: Transcribed Date/Time: 11/20/2019 (8526 ) Yarn Salvager: Printed Date/Time: 11/20/2019 (5514) PAGE 1 Signed Report Performing Organization Address City/State/ZIP Code Phon e Number RADIOLOGY documented in this encounter Visit Diagnoses Diagnosis Injury of left knee, initial encounter - Primary Instability of left knee joint documented in this encounter Care Teams Recyclable Products Sorter Relationship Specialty Start Date End Date Gil-Marcy Santos, PCP - General Family Medicine - Primary 1 11/13/18 CURATOR OF EDUCATION Care [address] [place] [phone] documented as of this encounter
--- OUTSIDE RECORDS SUMMARY | 2022-03-13 20:35 | XMS_ITS | Encounter Summary ---
:1965 Author Organization [facility] Address [address] [place] [address] Care Team Providers Name Role Phone None, Provider Primary Care Provider Unavailable None, Provider Primary Care Provider Unavailable Encounter Details Date Type Department Care Team Description 04/28/2019 Historical Results [facility] - Lilian Rushing, Only [facility] Lab - Main [facility] [address] [facility] [address] [place] [address] [address]OB-C, [place] [address] Social History Tobacco Use Types [...] Visit Infectious Disease Lilian Rushing MD [address] [facility] [address], [address] [place] [address] (Wo rk) documented as [...] nature ABSOLUTE NEUTROPHIL 4.4 2.2 - 8.85 [facility] COUN - [facility] 10e3/uL [facility]ENTER [facility] BASO # - [facility] 0.02 0.01 - 0.11 [facility] 10e/uL [facility] BASO % - [facility] 0 0 - 2 % [facility] EOS # - [facility] 0.05 0.03 - 0.61 [facility] 10e3/ul [facility] EOS % - [facility] 1 0 - 5 % [facility] GRAN % - [facility] 62.2 40 - 80 % [facility] HEMATOCRIT - [facility] 39.9 39.5 - 50.2 % [facility] HEMOGLOBIN - [facility] 13.3 (L) 13.8 - 17.3 [facility] g/dl [facility] IG# - [facility] 0.02 0 - 0.7 10e3/uL [facility] IG% - [facility] 0.3 0 - 0.9 % [facility] LYMPH # - [facility] 1.8 1.09 - 3.3 [facility] 10e3/ul [facility] LYMPH% - [facility] 25.2 20 - 40 % [facility] MEAN CORPUSCULAR HGB 30.0 27.6 - 33.0 pg [facility] ME D - [facility] CENTER LAB MEAN CORPUSCULAR HGB 33.3 32.8 - 36.4 [facility] CONC - [facility] g/dL [facility]ENTER [facility] MEAN CELL VOLUME - 89.9 81 - 95 fl [facility] MONO # - [facility] 0.8 0.1 - 0.8 [facility] 10e3/uL [facility] MONO% - [facility] 11.3 0 - 12 % [facility] PLATELET COUNT 330 141 - 377 [facility] 10e3/ul [facility] RED BLOOD COUNT - 4.44 4.36 - 5.78 [facility] 10e3/ul CENTER LAB RED CELL DISTRI WIDTH 13.2 <14.2 % [facility] WHITE BLOOD COUNT - 7.1 4.0 - 10.4 [facility] 10e3/ul CENTER LAB Specimen Narrative [facility] - 019 13:58 EDT Does PT Have a Latex Allergy? NO Performing Organization Address [facility] Code Phon e Number [facility] [address] LAB (ABNORMAL) IMMUNODEFICIENCY PANEL (04/28/2019 13:43 EDT) % CD3 74 62 - 87 % [facility] % CD4 30 (A) 35 - 63 % [facility] % CD8 38 (A) 10 - 35 % [facility] Absolute CD4 531 329 - 1,427 [facility] Comment: cells/uL [facility] Among the CD3+ T-cells is a [...] course of therapy. Reviewed by Dr. Acosta Cota Test performed or referred by The [address] [address] Specimen Narrative [facility] - 019 19:31 EDT Does PT Have a Latex Allergy? NO Performing Organization Address City/State/ZIP Code Phon e Number [facility] [address] [place] [address] [facility] (ABNORMAL) BASIC METABOLIC PANEL (BMP) (04/28/2019 13:42 EDT) BUN - [facility] 20 10 - 26 mg/dL [facility] CALCIUM - [facility] 9.4 8.5 - 10.5 [facility] mg/dL [facility] Chloride 103 96 - 110 [facility] mmol/L [facility] CO2 Total 28 21 - 32 mEq/L [facility] CREATININE 0.88 0.66 - 1.25 [facility] mg/dL [facility] eGFR >60 [facility] Comment: MED CENTER LAB Chronic renal impairment is defined as GFR <60 Multiply result by 1.210 for patients . Anion Gap 8 0 - 18 [facility] GLUCOSE - [facility] 117 (H) 70 - 100 mg/dL [facility] Potassium 4.5 3.5 - 5.0 [facility] mEq/L [facility] Sodium 139 136 - 145 [facility] mEq/L [facility] Specimen Narrative [facility] - 019 14:15 EDT Does PT Have a Latex Allergy? NO Performing Organization Address City/State/ZIP Code Phon e Number [facility] [address] [place] [address] [facility] documented in this encounter Visit Diagnoses Not on filedocumented in this encounter Care Teams Sheet Metal Welder Relationship Specialty Start Date End Date None, Provider PCP - General 04/22/19 06/22/19 None, Provider PCP - General 06/23/19 09/12/19 documented as of this encounter
--- OUTSIDE RECORDS SUMMARY | 2022-03-13 20:35 | XMS_ITS | Encounter Summary ---
:[address] [facility] Address [address] [place] [address] Care Team Providers Name Role Phone Marcy Alvarenga STRENGTH AND CONDITIONING COACH Primary Care Provider [phone] Reason for Visit Reason Onset Date Comments Medications Refill 09/26/2019 Encounter Details Date Type Department Care Team Description 09/26/2019 Telephone [facility] Lilian Rushing MD Medications Refill Infectious Disease [address] [facility] 130 [facility] [address] [place] [address] [place] [phone] (Wo rk) Social History Tobacco Use [...] Sig Dispensed Refills Start Date End Date qgrzjmw-jwb-dkytd-tenof Take 1 Tab by mouth 90 Tab 1 12/201810/17/2019 ALAFEN (GENVOYA) daily for 90 days. [phone] mg tabletIndications: HIV infection documented in this encounter Miscellaneous Notes Telephone Encounter - Aissatou Iraheta RN - 09/29/2019 1609 EST Confirmed with Aissatou at [facility] they received the rx and its in the process of being verified by the pharmacist for shipment. elephone Encounter - Aissatou Iarheta RN - 09/28/2019 1319 EST rx manually faxed this morning. elephone Encounter - Aissatou Iraheta RN - 09/27/2019 1653 EST Called customer service line for [facility]. They gave me a fax of [phone] to send new rx;s too. Rx created [...] also [place] Medicaid insurance. His insurance from [place] runs out at the end of the month. I said I will try and figure the pharmacy out in the meantime and get the paperwork together so we can start working on it. elephone Encounter - Flaquita Do - 09/26/[address] [facility]-pt states that he needs a [...] Visit Infectious Disease Lilian Rushing MD [address] [facility] [address] [place] [address] (Wo rk) documented as of this encounter Visit Diagnoses Not on filedocumented in this encounter Discontinued Medications Medication Sig Discontinue Reason Start Date End Date yreutze-qge-ezhuk-tenof Take by mouth Reorder 12/2018 ALAFEN (GENVOYA) daily. [phone] mg tabletIndications: HIV infection documented as of this encounter Care Teams Security Field Supervisor Relationship Specialty Start Date End Date Marcy Alvarenga, PCP - General Family Medicine - Primary 1 11/13/18 STRENGTH AND CONDITIONING COACH Care [address] [place] [address] [address] [place] [address] documented as of this encounter
[2022-03-13 21:16] LABS: ALT 22 U/L (16-63); AST 12 U/L (15-37); Albumin 3.4 g/dL (3.4-5.0); Alkaline Phosphatase 107 U/L (46-116); Anion Gap 6.2 mmol/L (3-11); BUN 25 mg/dL (7-18); Bilirubin, Total 0.2 mg/dL (0.2-1.0); CO2 25.8 mmol/L (21.0-32.0); CREATININE 1.4 mg/dL (0.70-1.30); Calcium 8.7 mg/dL (8.5-10.1); Chloride 102 mmol/L (98-107); Estimated GFR 52.62 (mL/min/1.73m2); Glucose 137 mg/dL (74-106); Magnesium 2.2 mg/dL (1.8-2.4); Potassium 5.1 mmol/L (3.5-5.1); Sodium 134 mmol/L (136-145); Total Protein 6.8 g/dL (6.4-8.2)
== END 2022-03-13 20:31 | disposition home or self-care (01) ==
LOC: LBN 20:30
PROVIDERS: Visit Provider Internal Medicine Infectious Disease
DX: B95.62 Methicillin resistant Staphylococcus aureus infection as the cause of diseases classified elsewhere (principal); M01.X62 Direct infection of left knee in infectious and parasitic diseases classified elsewhere; Z47.1 Aftercare following joint replacement surgery
CPT/HCPCS: 80053; 83735; 84100

== ENCOUNTER 2022-03-17 20:17 | Outpatient (REF) | payer MEDICAID, SELFPAY ==
--- OUTSIDE RECORDS SUMMARY | 2022-03-17 20:19 | XMS_ITS | Encounter Summary ---
:1965 Author Organization [facility] Address [address] [place] [address] Care Team Providers Name Role Phone Marcy Alvarenga FIBER ARTIST Primary Care Provider [phone] Reason for Visit Reason Onset Date Comments Medications Refill 12/10/2021 Encounter Details Date Type Department Care Team Description 12/10/2021 Telephone [facility] Aissatou Iraheta RN Medications Refill Infectious Disease [address] [place] [address] [place] [address] [phone] Social History Tobacco Use Types Packs/Day Years [...] Sig Dispensed Refills Start Date End Date hjohfto-kve-eonwb-tenof Take 1 Tablet by 90 Tablet 3 2021 ALAFEN (GENVOYA) mouth daily for 90 [phone] mg days. tabletIndications: HIV infection posaconazole (NOXAFIL) [...] Rushing MD [address] [facility] [address] [place] [address] (Wo rk) documented as of this encounter Visit Diagnoses Not on filedocumented in this encounter Discontinued Medications Medication Sig Discontinue Reason Start Date End Date mbvcdlv-foh-pwsok-tenof Take 1 Tablet by Reorder 06/18/2021 12/10/2021 ALAFEN (GENVOYA) mouth daily for 90 [phone] mg days. tabletIndications: HIV infection posaconazole (NOXAFIL) Take 3 Tablets by Reorder 11/27/2021 12/11/2021 100 mg delayed release mouth every 24 tablet hours. BEST TAKEN WITH A FATTY MEAL documented as of this encounter Additional Health Concerns Infection Onset Date Last Indicated Resolved Time MRSAComment: Hx of XDKU-Blqf-69/23/2020 08/29/2021 08/29/20 21 C. Stoner 12/31/21 documented as of this encounter Care Teams Client Relations Representative Relationship Specialty Start Date End Date Gil-Marcy Santos, PCP - General Family Medicine - Primary 1 11/13/18 FIBER ARTIST Care [address] [place] [address] 2 [place] [phone] documented as of this encounter
--- OUTSIDE RECORDS SUMMARY | 2022-03-17 20:19 | XMS_ITS | Encounter Summary ---
:1965 Author Organization [facility] Address [address] [place] [address] Care Team Providers Name Role Phone Marcy Alvarenga LICENSING ENGINEER Primary Care Provider [phone] Reason for Visit Reason Comments New Patient Visit HIV. Patient states no quest ions or concerns Encounter Details Date Type Department Care Team Description 01/09/2022 Office Visit [facility] - Lilian Rushing Asy mptomatic HIV infection (HCC) (Primary Dx); [facility] Infectious MD Coccidioidomycosis; Disease [address] Other chronic osteomyelitis of left tibi a (HCC); [address], [address] [place] [address] [place] [phone] Social History Tobacco Use Types Packs/Day [...] followed up with Dr. Jacobs from the [facility] [place]. See07/03/21 note for details of that conversation. [...] in clinic today. Lilian Rushing MD, MPH [facility] Infectious Disease Office: [phone] I spent a total of 65 minutes on the date of this encounter meeting with the patient and reviewing documentation/coordinating care as described in the above note. No procedures were performed at the time of the visit. documented in this encounter Plan of Treatment Upcoming Encounters Date Type Specialty Care Team Description 04/14/2022 Office Visit Infectious Disease Lilian Rushing MD [address] [place] [address] [address] [place] [address] (Wo rk) documented as [...] Last Indicated Resolved Time MRSAComment: Hx of TJIY-Dswj-02/23/2020 08/29/2021 08/29/20 21 C. Stoner 12/31/21 documented as of this encounter Care Teams Software Trainer Relationship Specialty Start Date End Date Marcy Alvarenga, PCP - General Family Medicine - Primary 1 11/13/18 LICENSING ENGINEER Care [address] [place] [address] [address] [place] [address] documented as of this encounter
--- OUTSIDE RECORDS SUMMARY | 2022-03-17 20:19 | XMS_ITS | Encounter Summary ---
:1965 Author Organization [facility] Address [address] [place] [address] Care Team Providers Name Role Phone Marcy Alvarenga SLOTTER OPERATOR HELPER Primary Care Provider [phone] Reason for Visit Reason Onset Date Comments Pre-visit Planning 12/23/2021 Encounter Details Date Type Department Care Team Description 12/23/2021 Telephone [facility] Aissatou Iraheta RN Pre-visit Planning Infectious Disease [address] [place] [address] [place] [address] [phone] Social History Tobacco Use Types Packs/Day Years [...] Visit Infectious Disease Lilian Rushing MD 130 [facility], [address] [place] [address] (Wo rk) Scheduled Orders Name Type Priority Associated Diagnoses Order S chedule SYPHILIS RPR SCREEN Lab Routine Screening for viral O rdered: 12/25/2021 W/REFLEX disease High risk homosexual behavior documented as of this encounter Results UA WITH REFLEX SEDIMENT (CULTURE IF POS) (01/07/2022 10:35 EDT) Color UA Yellow Colorless to Dark [facility] Yellow [facility] Clarity UA Clear Clear [facility] Glucose UA Negative Negative [facility] Bilirubin UA Negative Negative [facility] Ketones UA Negative Negative [facility] Specific [place], 1.020 1.001 - 1.035 [facility] Urine [facility] Blood UA Negative Negative [facility] pH, UA 6.5 4.6 - 8.0 [facility] Protein UA Negative Negative [facility] Urobilinogen UA 0.2 0.2 , 1.0, Normal [facility] mg/dL [facility] Nitrite UA Negative Negative [facility] Leukocyte Esterase UA Negative Negative [facility] Specimen Urine - Urine specimen collection, clean catch (procedure) Performing Organization Address City/State/ZIP Code Phon e Number [facility] [address] [place] [address] MISCELLANEOUS TEST, NORMA (01/07/2022 9:24 EDT) Pathologist [facility] Miscellaneous Test, SEE NOTE [facility] Comment: LABORATORIES Test ? Result ?Flag ??Unit ?? RefValue Posaconazole, S ?2310 ?ng/mL ??>700 ? ADDITIONAL INFORMATION------- ?This test was developed and its performance jimmie [employer] ?determined by [facility] in a manner consistent with CLIA ?requirements. This test has not been cleared or approved by ?the U.S. Food and Drug Administration. ?Test Performed by: ?[facility] [address] ?[address] [place] [address] ?Pipe Installer: Pritesh Mcgee M.D. Ph.D.; CLIA # [id number] Specimen Blood - Venous blood (substance) Performing Organization Address City/State/ZIP Code Phon e Number [facility] [address] [place] [address] (ABNORMAL) COMPREHENSIVE METABOLIC PANEL (CMP) (01/07/2022 9:24 EDT) Pathologist [facility] Sodium 138 136 - 145 [facility] mmol/L [facility] Potassium 4.2 3.5 - 5.0 [facility] mmol/L [facility] Chloride 99 96 - 110 mmol/L [facility] CO2 Total 29 22 - 32 mmol/L [facility] Glucose 113 (H) 70 - 100 mg/dL [facility] BUN 17 10 - 26 mg/dL [facility] Creatinine 0.90 0.66 - 1.25 [facility] mg/dL [facility] eGFR 96 >60 [facility] mL/min/1.73m2 [facility] Total Protein 6.8 6.3 - 8.2 g/dL [facility] Albumin 3.8 3.4 - 4.9 g/dL [facility] Alkaline Phosphatase 90 38 - 126 U/L [facility] AST 23 15 - 46 U/L [facility] ALT 18 <50 U/L [facility] Bilirubin, Total 0.3 <1.4 mg/dL [facility] Calcium 8.7 8.5 - 10.5 [facility] mg/dL [facility] Albumin/Globulin Ratio 1.3 1.0 - 2.5 [facility] Anion Gap 10 5 - 14 [facility] Specimen Blood - Venous blood (substance) Performing Organization Address City/State/ZIP Code Phon e Number [facility] [address] [place] [address] HIV 1 RNA QUANTITATION (01/07/2022 9:24 EDT) HIV RNA Detection, Undetected Undetected [facility] Qual copies/mL LABORATORY SERVICES Specimen Blood - Venous blood (substance) Narrative [facility]OR[facility]ORY SERVICES - 01/09/2022 14:05 EDT New platform in use 05/20/2021 The quantification range of this assay i s 20 IU/mL to 10,000,000 IU/mL. ??Testing was performed using the Areli HIV test ([employer] with the areli 6800 System. Performing Organization Address City/[facility]/ZIP Code Phon e Number [facility]OR[facility]ORY [address] [place] [address] SERVICES T CELL SUBSETS (01/07/2022 9:24 EDT) Pathologist Sig nature % CD3 72 56 - 84 % [facility] LABORATORY SERVICES % CD4 32 31 - 64 % [facility] LABOR[facility]ORY SERVICES % CD8 36 9 - 39 % [facility] SERVICES Absolute CD3 1,086 840-2,669 Cells/uL [facility] SERVICES Absolute CD4 493 488-1,734 Cells/uL [facility] SERVICES Absolute CD8 547 154-1,097 Cells/uL [facility] SERVICES 01/31 Ratio 0.90 >=0.90 [facility] SERVICES Specimen Blood - Venous blood (substance) Performing Organization Address City/State/ZIP Code Phon e Number [facility] [address] [place] [address] SERVICES documented in this encounter Visit Diagnoses [...] Last Indicated Resolved Time MRSAComment: Hx of ERQO-Ttck-77/23/2020 08/29/2021 08/29/20 21 C. Stoner 12/31/21 documented as of this encounter Care Teams Carpenters Supervisor Relationship Specialty Start Date End Date [place]-Marcy Santos, PCP - General Family Medicine - Primary 1 11/13/18 SLOTTER OPERATOR HELPER Care [address] [place] [phone] documented as of this encounter
--- OUTSIDE RECORDS SUMMARY | 2022-03-17 20:19 | XMS_ITS | Encounter Summary ---
:1965 Author Organization [facility] Address [address] [place] [address] Care Team Providers Name Role Phone Marcy Alvarenga ROD TAPE OPERATOR Primary Care Provider [phone] Encounter Details Date Type Department Care Team Description 01/07/2022 Phlebotomy Only [facility] Health Lab, [facility] [place] Asymptomatic HIV infection (HCC); Network - Central Phlebotomy Coccidioid omycosis [facility] - Outpatient Phlebotomy Drawing [address] [place] [address] Social History Tobacco Use Types Packs/Day Years [...] Team Description 04/14/2022 Office Visit Infectious Disease Lliian Rushing MD [address] [facility], [address] [place] [address] (Wo rk) documented as [...] EDT) Color UA Yellow Colorless to Dark [facility] Yellow [facility] Clarity UA Clear Clear [facility] Glucose UA Negative Negative [facility] Bilirubin UA Negative Negative [facility] Ketones UA Negative Negative [facility] Specific [place], 1.020 1.001 - 1.035 [facility] Urine [facility] Blood UA Negative Negative [facility] pH, UA 6.5 4.6 - 8.0 [facility] Protein UA Negative Negative [facility] Urobilinogen UA 0.2 0.2 , 1.0, Normal [facility] mg/dL [facility] Nitrite UA Negative Negative [facility] Leukocyte Esterase UA Negative Negative [facility] Specimen Urine - Urine specimen collection, clean catch (procedure) Performing Organization Address [facility]/ZIP Code Phon e Number [facility] [address] [place] [address] MISCELLANEOUS TEST, MARYKNOLL (01/07/2022 9:24 EDT) Pathologist [facility] Miscellaneous Test, SEE NOTE [facility] Comment: LABORATORIES Test ? Result ?Flag ??Unit ?? RefValue Posaconazole, S ?2310 ?ng/mL ??>700 ? ADDITIONAL INFORMATION------- ?This test was developed and its performance jimmie Better[employer] ?determined by [facility] in a manner consistent with CLIA ?requirements. This test has not been cleared or approved by ?the U.S. Food and Drug Administration. ?Test Performed by: ?[facility] [address] [facility] ?[address] [place] [address] ?Application Systems Engineer: Pritesh Mcgee M.D. Ph.D.; CLIA # [id number] Specimen Blood - Venous blood (substance) Performing Organization Address City/[facility]/ZIP Code Phon e Number [facility] [address] [place] [address] (ABNORMAL) COMPREHENSIVE METABOLIC PANEL (CMP) (01/07/2022 9:24 EDT) Pathologist [facility] nature Sodium 138 136 - 145 [facility] mmol/L [facility] Potassium 4.2 3.5 - 5.0 [facility] mmol/L [facility] Chloride 99 96 - 110 mmol/L [facility] CO2 Total 29 22 - 32 mmol/L [facility] Glucose 113 (H) 70 - 100 mg/dL [facility] BUN 17 10 - 26 mg/dL [facility] Creatinine 0.90 0.66 - 1.25 [facility] mg/dL [facility] eGFR 96 >60 [facility] mL/min/1.73m2 [facility] Total Protein 6.8 6.3 - 8.2 g/dL [facility] Albumin 3.8 3.4 - 4.9 g/dL [facility] Alkaline Phosphatase 90 38 - 126 U/L [facility] AST 23 15 - 46 U/L [facility] ALT 18 <50 U/L [facility] Bilirubin, Total 0.3 <1.4 mg/dL [facility] Calcium 8.7 8.5 - 10.5 [facility] mg/dL [facility] Albumin/Globulin Ratio 1.3 1.0 - 2.5 [facility] Anion Gap 10 5 - 14 [facility] Specimen Blood - Venous blood (substance) Performing Organization Address City/State/ZIP Code Phon e Number [facility] [address] [place] [address] HIV 1 RNA QUANTITATION (01/07/2022 9:24 EDT) HIV RNA Detection, Undetected Undetected [facility] Qual copies/mL LABORATORY SERVICES Specimen Blood - Venous blood (substance) Narrative [facility]OR[facility]ORY SERVICES - 01/09/2022 14:05 EDT New platform in use 05/20/2021 The quantification range of this assay i s 20 IU/mL to 10,000,000 IU/mL. ??Testing was performed using the Areli HIV test ([employer] with the areli 6800 System. Performing Organization Address City/State/ZIP Code Phon e Number [facility]OR[facility]ORY [address] [place] [address] SERVICES T CELL SUBSETS (01/07/2022 9:24 EDT) Pathologist Sig nature % CD3 72 56 - 84 % [facility] LABORATORY SERVICES % CD4 32 31 - 64 % [facility] LABOR[facility]ORY SERVICES % CD8 36 9 - 39 % [facility] SERVICES Absolute CD3 1,086 840-2,669 Cells/uL [facility] SERVICES Absolute CD4 493 488-1,734 Cells/uL [facility] SERVICES Absolute CD8 547 154-1,097 Cells/uL [facility] SERVICES 01/31 Ratio 0.90 >=0.90 [facility] SERVICES Specimen Blood - Venous blood (substance) Performing Organization Address City/State/ZIP Code Phon e Number [facility] [address] [place] [address] SERVICES documented in this encounter Visit Diagnoses Diagnosis Asymptomatic HIV infection (HCC) Asymptomatic human immunodeficiency viru s (HIV) infection status Coccidioidomycosis Coccidioidomycosis, unspecified documented in this encounter Additional Health Concerns Infection Onset Date Last Indicated Resolved Time MRSAComment: Hx of [id number]-Pnwd-43/23/2020 08/29/2021 08/29/20 21 C. Stoner 12/31/21 documented as of this encounter Care Teams Housing Management Officer Relationship Specialty Start Date End Date Gil-Marcy Santos, PCP - General Family Medicine - Primary 1 11/13/18 ROD TAPE OPERATOR Care [address] [place] [phone] documented as of this encounter
--- OUTSIDE RECORDS SUMMARY | 2022-03-17 20:19 | XMS_ITS | Encounter Summary ---
:[address] [facility] Address [address] [place] [address] Care Team Providers Name Role Phone Marcy Alvarenga CYLINDER BLOCK HOLE RELINER Primary Care Provider [phone] Encounter Details Date Type Department Care Team [...] Visit Infectious Disease Lilian Rushing MD [address] [facility], [address] [place] [address] (Wo rk) documented as of this encounter Visit Diagnoses Not on filedocumented in this encounter Additional Health Concerns Infection Onset Date Last Indicated Resolved Time MRSAComment: Hx of BBVQ-Drxs-57/23/2020 08/29/2021 08/29/20 21 C. Stoner 12/31/21 documented as of this encounter Care Teams Hospital Security Officer Relationship Specialty Start Date End Date Marcy Alvarenga, PCP - General Family Medicine - Primary 1 11/13/18 CYLINDER BLOCK HOLE RELINER Care [address] [place] [address] [address] [place] [address] documented as of this encounter
--- OUTSIDE RECORDS SUMMARY | 2022-03-17 20:19 | XMS_ITS | Encounter Summary ---
:1965 Author Organization [facility] Address [address] [place] [address] Care Team Providers Name Role Phone Marcy Alvarenga REGISTERED ACCOUNT ADMINISTRATOR Primary Care Provider [phone] Reason for Visit Reason Onset Date Comments Medications Refill 02/07/2022 Encounter Details Date Type Department Care Team Description 02/07/2022 Telephone [facility] Lilian Rushing MD Medications Refill Infectious Disease [address] [facility] [address] [facility] [address] [place], [place] [address] [place] [address] [phone] (Wo rk) Social History Tobacco Use [...] Aissatou Iraheta RN - 02/07/2022 1421 EDT [facility] will run rx for a 30 day supply. [place] only covers 30 days at a time. New rx was sent. Telephone Encounter - Peace Hunter MA - 02/07/2022 1255 EDT Patient called to request refill for posaconazole to be sent to [facility] in [facility]. Thanks. documented in this encounter Plan of Treatment Upcoming Encounters Date Type Specialty Care Team Description 04/14/2022 Office Visit Infectious Disease Lliian Rushing MD [address] [place] [address] [address] [place] [address] (Wo rk) documented as [...] Last Indicated Resolved Time MRSAComment: Hx of BZNA-Bchc-91/23/2020 08/29/2021 08/29/20 21 C. Stoner 12/31/21 documented as of this encounter Care Teams Resident Care Aide Relationship Specialty Start Date End Date Warren-Marcy Santos, PCP - General Family Medicine - Primary 1 11/13/18 REGISTERED ACCOUNT ADMINISTRATOR Care [address] [phone] documented as of this encounter
--- OUTSIDE RECORDS SUMMARY | 2022-03-17 20:19 | XMS_ITS | Encounter Summary ---
:1965 Author Organization [facility] Address [address] [place] [address] Care Team Providers Name Role Phone Marcy Alvarenga WAREHOUSER Primary Care Provider [phone] Reason for Visit Reason Onset Date Comments Medication Management 02/07/2022 Pt out of RX Encounter Details Date Type Department Care Team Description 02/07/2022 Telephone [facility] Medicat ion Management [facility] - Marcy Ruiz WAREHOUSER (Pt out of RX) [address], [facility] [address] [place] [address] [place] [phone] (Wo rk) Social History Tobacco Use [...] Office Visit Infectious Disease Lilian Rushing MD [address] [place] [address], [address] [place] [address] (Wo rk) documented as of this encounter Visit Diagnoses Not on filedocumented in this encounter Discontinued Medications Medication Sig Discontinue Reason Start Date End Date TAMSulosin (FLOMAX) 0.4 TAKE 1 CAPSULE BY Reorder 11/07/2021 02/07/2022 mg capsule MOUTH ONCE DAILY documented as of this encounter Additional Health Concerns Infection Onset Date Last Indicated Resolved Time MRSAComment: Hx of WDWL-Ivhq-70/23/2020 08/29/2021 08/29/20 21 C. Stoner 12/31/21 documented as of this encounter Care Teams Forming Department End Finder Relationship Specialty Start Date End Date Gil-Marcy Santos, PCP - General Family Medicine - Primary 1 11/13/18 WAREHOUSER Care [address] [place] [phone] documented as of this encounter
--- OUTSIDE RECORDS SUMMARY | 2022-03-17 20:19 | XMS_ITS | Encounter Summary ---
:1965 Author Organization [facility] Address [address] [place] [address] Care Team Providers Name Role Phone Marcy Alvarenga VESSEL TRAFFIC OFFICER Primary Care Provider [phone] Reason for Visit Reason Comments Headache Headache and nausea/vomiting started last night, has not stopped. Has taken ibuprofen to minimal e ffect. Nausea Pt actively vomiting in tria ge, brought to room. Encounter Details Date Type Department Care Team Description 12/30/2021 Emergency [facility] - Crys Orellana DO [address] [place] [address] Acute nonintractable [facility] Emergency Faustino Shi MD [address] [place] [phone] headache, unspecified Department headache type (Primary [address]) [place], [place] [phone] Social History Tobacco Use Types Packs/Day Years [...] nael applied 0 % swab topically PRN [id number]-jkd-enynq-tenof Take 1 Tablet by 90 Tablet 3 2021 ALAFEN (GENVOYA) mouth daily for 90 [phone] mg days. tabletIndications: HIV infection lisinopriL (PRINIVIL) [...] Departure Means Destination Comments Home or Self Long-Term Pt aler wi th no complaints at [...] incurred after he fell while hiking in [place]. He washed an abrasion out with some [...] nerves II through XII are intact bilaterally. Nnsgag-iefb-fugxmy was normal. Normal gross strength in all [...] damage Alternatives discussed: Alternative treatment and observation [place] protocol: Procedure explained and questions answered to [...] Infectious Disease Lilian Rushing MD [address] [facility], [address] [place] [address] (Wo rk) documented as [...] OR CLINIC PERFORMED (12/30/2021 21:31 EST) Narrative [facility] EKG - 12/30/2021 21:3 1 EST Faustino Shi MD ? 12/30/2021 23:08 Lumbar Puncture Date/Time: 12/30/2021 21:31 Performed by: Faustino Shi MD Authorized by: Faustino Shi MD Consent: ??Consent obtained: ??Verbal ??Consent given by: ??Patient ??Risks discussed: ??Bleeding, infectio n, pain, headache and nerve damage ??Alternatives discussed: ??Alternative treatment and observation [place] protocol: ??Procedure explained and questions ans wered [...] City/State/ZIP Code Phon e Number [facility] EKG CELL COUNT, CSF (12/30/2021 21:23 EST) RBC, CSF 0Comment: None /[facility]ENTER LAB Nucleated Cells, 0Comment: None 0 - 5 /cmm [facility] CSF Seen [facility] Total Volume CSF 3.5 ml [facility] Tube Cntd. 4 [facility] Comment, CSF Clear and [facility] colorless [facility] Tube Vol. 1.0 ml [facility] Specimen Fluid - Cerebrospinal fluid sample (spec imen) Performing Organization Address [facility] Phon e Number [facility] [address] [place] [address] (ABNORMAL) TOTAL PROTEIN, CSF (12/30/2021 21:23 EST) Pathologist Sig nature Total Protein, CSF 47 (H) 12 - 45 mg/dL [facility] Specimen Fluid - Cerebrospinal fluid sample (spec imen) Performing Organization Address [facility] Phon e Number [facility] [address] [place] [phone] GLUCOSE CSF (12/30/2021 21:23 EST) Glucose, CSF 59 40 - 70 mg/dL [facility] Comment: [facility] NOTE: Reference range for Glucose in CSF: 60% - 80% of the S lucy/Plasma Glucose Specimen Fluid - Cerebrospinal fluid sample (spec imen) Performing Organization Address [facility] Phon e Number [facility] [address] [place] [phone] BACTERIAL CULTURE/SMEAR (12/30/2021 21:23 EST) Pathologist Sig nature Organism ID No Growth [facility] Smear No Neutrophils [facility] SeenComment: Cytospin [facility] gram stain interpreted. Smear No bacteria seen [facility] Specimen Fluid - Cerebrospinal fluid sample (spec imen) Performing Organization Address [facility] Phon e Number [facility] [address] [place] [address] CT HEAD WO CONTRAST (12/30/2021 20:45 EST) Anatomical Region Laterality Modality Head Computed Tomography Specimen Impressions [facility] RADIOLOGY MAIN CAMPUS - 12/30/2021 21:13 EST No hydrocephalus, acute intracranial hemorrhage, or mass effect. THIS DOCUMENT HAS BEEN ELECTRONICALLY SI GNED BY ANDREW CHRIS MD FOR ANY QUESTIONS OR CONCERNS REGARDING THIS REPORT PLEASE CALL [facility] AT [phone] Narrative [facility] RADIOLOGY MAIN CAMPUS - 12/30/2021 21:13 [...] REGARDING THIS REPORT PLEASE CALL [facility] AT [phone] Performing Organization Address City/State/ZIP Code Phon e Number [facility] RADIOLOGY [facility]AMPUS EKG 12-LEAD (12/30/2021 19:42 EST) Specimen Narrative [facility]ANY - 8:43 EST ? [facility] ? Test Date: ?2021-12-30 Pat Name: ? HA SORIA ?Department: ? Room: ? C03 Gender: ? Male ? Automatic Paint Sprayer Operator: ?? LR : ?1965 ? Requested By: HEDY Eisenberg Order Number: [id number] ? Abdi FERNANDEZ: ?? IDALIA SANTOS MD ? Measurements Intervals ?Amity ? Rate: ? 61 ? P: ?78 CA: ? 142 ?QRS: ?61 QRSD: ? 90 [...] Procedure Note Idalia Santos MD - 12/31/2021 [facility] Test Date: 2021-12-30 Pat Name: HA SORIA Department: Room: C03 Gender: Male Automatic Paint Sprayer Operator: FABIANO : 1965 Requested By: HEDY Eisenberg Order Number: [id number] Reading MD: Shabbir SANTOS MD Measurements Intervals Amity Rate: 61 P: 78 CA: 142 QRS: 61 QRSD: 90 T: 62 [...] Phon e Number [facility] (ABNORMAL) C REACTIVE PROTEIN (12/30/2021 19:38 EST) Pathologist Sig nature C-Reactive Protein 10.0 (H) <10.0 mg/L [facility] Specimen Blood - Venous blood (substance) Performing Organization Address City/State/ZIP Code Phon e Number [facility] [address] [place] [address] (ABNORMAL) COMPLETE BLOOD COUNT AND DIFFERENTIAL (12/30/2021 19:38 EST) Pathologist Sig [facility] WBC 7.17 4.00 - 10.40 [facility] RBC 5.28 4.36 - 5.78 [facility] Hemoglobin 15.0 13.8 - 17.3 [facility] gm/dL [facility] HCT 43.4 39.5 - 50.2 % [facility] MCV 82 81 - 95 fl [facility] MCH 28.4 27.6 - 33.0 pg [facility] MCHC 34.6 32.8 - 36.4 [facility] gm/dL [facility] RDW-CV 13.7 <14.2 % [facility] RDW-SD 41.0 <46.0 fl [facility] PLT 372 141 - 377 K/cmm [facility] MPV 8.7 (L) 9.5 - 12.7 fl [facility] Neutrophils 68.0 % [facility] Lymphocytes 19.9 % [facility] Monocytes 9.9 % [facility] Eosinophils 1.1 % [facility] Basophils 0.4 % [facility] Immature Grans 0.7 % [facility] Absolute Neutrophils 4.87 2.20 - 8.85 [facility] Absolute Lymphocytes 1.43 1.09 - 3.30 [facility] Absolute Monocytes 0.71 0.10 - 0.80 [facility] Absolute Eosinophils 0.08 0.03 - 0.61 [facility] K/cmm [facility] Absolute Basophils 0.03 0.01 - 0.11 [facility] K/cmm [facility] Absolute Immature 0.05 0.00 - 0.06 [facility] Grans K/cm [facility] Type of Differential: Auto [facility] Specimen Blood - Venous blood (substance) Performing Organization Address [facility]/ZIP Code Phon e Number [facility] [address] [place] [address] (ABNORMAL) COMPREHENSIVE METABOLIC PANEL (CMP) (12/30/2021 19:38 EST) Pathologist [facility] Sodium 139 136 - 145 [facility] mmol/L [facility] Potassium 3.6 3.5 - 5.0 [facility] mmol/L [facility] Chloride 98 96 - 110 mmol/L [facility] CO2 Total 32 22 - 32 mmol/L [facility] Glucose 126 (H) 70 - 100 mg/dL [facility] BUN 14 10 - 26 mg/dL [facility] Creatinine 0.82 0.66 - 1.25 [facility] mg/dL [facility] eGFR 100 >60 [facility] mL/min/1.73m2 [facility] Total Protein 7.9 6.3 - 8.2 g/dL [facility] Albumin 4.3 3.4 - 4.9 g/dL [facility] Alkaline Phosphatase 102 38 - 126 U/L [facility] AST 25 15 - 46 U/L [facility] ALT 19 <50 U/L [facility] Bilirubin, Total 0.5 <1.4 mg/dL [facility] Calcium 9.5 8.5 - 10.5 [facility] mg/dL [facility] Albumin/Globulin Ratio 1.2 1.0 - 2.5 [facility] Anion Gap 9 5 - 14 [facility] Specimen Blood - Venous blood (substance) Performing Organization Address City/[facility]/ZIP Code Phon e Number [facility] [address] [place] [phone] documented in this encounter Visit Diagnoses Diagnosis [...] Scheduled Medication Order 12/28/2021 12/29/2021 12/30/2021 acetaminophen ([facility]) IV solution 1,000 mg (COMPLETED) 2024 (Given [...] Last Indicated Resolved Time MRSAComment: Hx of FFBL-Eduz-54/23/2020 08/29/2021 08/29/20 21 C. Stoner 12/31/21 documented as of this encounter Care Teams Driver Lifter Of Sanitation Truck Relationship Specialty Start Date End Date Gil-Marcy Santos, PCP - General Family Medicine - Primary 1 11/13/18 VESSEL TRAFFIC OFFICER Care [address] [place] [phone] documented as of this encounter
--- OUTSIDE RECORDS SUMMARY | 2022-03-17 20:19 | XMS_ITS | Clinical Summary ---
:1965 Author Organization [facility] Address [address] [place] [address] Care Team Providers Name Role Phone Marcy Alvarenga FUNDING ANALYST Primary Care Provider [phone] Allergies No known active allergies Medications Medication [...] Tablet 3 04/24/2021 Active tablet EVERY DAY hsilfcw-sux-bofqa-tenof Take 1 Tablet by mouth 90 Tablet 3 Active ALAFEN (GENVOYA) daily for 90 days. 288-260-280-10 mg tabletIndications: HIV infection TAMSulosin (FLOMAX) 0.4 [...] Patient Info rmation Marcy Ruiz NP Update ([facility]) 02/24/2022 Telephone Family Medicine [place], Urinary [...] encounter 01/07/2022 Phlebotomy Only Clinical Lab, [facility] Asymptomatic HIV infection (HCC); Laboratory Phlebotomy Coccidioidomyco sis 12/30/2021 Emergency Emergency [facility], Acute nonintrac table Medicine Crys Lundy [...] Visit Infectious Disease Lilian Rushing MD [address] [place] [address], [address] [place] [address] (Wo rk) Health Maintenance [...] EDT) Color UA Yellow Colorless to Dark [facility] Yellow [facility] Clarity UA Clear Clear [facility] Glucose UA Negative Negative [facility] Bilirubin UA Negative Negative [facility] Ketones UA Negative Negative [facility] Specific [place], 1.020 1.001 - 1.035 [facility] Urine [facility] Blood UA Negative Negative [facility] pH, UA 6.5 4.6 - 8.0 [facility] Protein UA Negative Negative [facility] Urobilinogen UA 0.2 0.2 , 1.0, Normal [facility] mg/dL [facility] Nitrite UA Negative Negative [facility] Leukocyte Esterase UA Negative Negative [facility] Specimen Urine - Urine specimen collection, clean catch (procedure) Performing Organization Address City/State/ZIP Code Phon e Number [facility] [address] [place] [address] HIV 1 RNA QUANTITATION (01/07/2022 9:24 EDT) [facility] HIV RNA Detection, Undetected Undetected [facility] Qual copies/mL LABORATORY SERVICES Specimen Blood - Venous blood (substance) Narrative [facility] LABORATORY SERVICES - 01/09/2022 14:05 EDT New platform in use 05/20/2021 The quantification range of this assay i s 20 IU/mL to 10,000,000 IU/mL. ??Testing was performed using the Areli HIV test ([employer] with the areli 6800 System. Performing Organization Address [facility] Phon e Number [facility] LABORATORY [address] [place] [address] SERVICES MISCELLANEOUS TEST, [place]ID[place] (01/07/2022 9:24 EDT) Miscellaneous Test, SEE NOTE [facility] Comment: LABORATORIES Test ? Result ?Flag ??Unit ?? RefValue Posaconazole, S ?2310 ?ng/mL ??>700 ? ADDITIONAL INFORMATION------- ?This test was developed and its performance jimmie Kalido ?determined by [facility] in a manner consistent with CLIA ?requirements. This test has not been cleared or approved by ?the U.S. Food and Drug Administration. ?Test Performed by: ?[facility] [address] [place] [address] ?Auto Bumper Straightener: Pritesh Mcgee M.D. Ph.D.; CLIA # [id number] Specimen Blood - Venous blood (substance) Performing Organization Address City/[facility] Phon e Number [facility] LABORATORIES [address] [place] [address] T CELL SUBSETS (01/07/2022 9:24 EDT) Pathologist Sig nature % CD3 72 56 - 84 % [facility] LABORATORY SERVICES % CD4 32 31 - 64 % [facility] LABORATORY SERVICES % CD8 36 9 - 39 % [facility] LABORATORY SERVICES Absolute CD3 1,086 840-2,669 Cells/uL [facility] LABORATORY SERVICES Absolute CD4 493 488-1,734 Cells/uL [facility] LABORATORY SERVICES Absolute CD8 547 154-1,097 Cells/uL [facility] LABORATORY SERVICES 4/8 Ratio 0.90 >=0.90 [facility] LABORATORY SERVICES Specimen Blood - Venous blood (substance) Performing Organization Address City/State/ZIP Code Phon e Number [facility] LABORATORY [address] [place] [address] SERVICES (ABNORMAL) COMPREHENSIVE METABOLIC PANEL (CMP) (01/07/2022 9:24 EDT)Only the most recent of2 resultswithin the time period is included. Pathologist Sig nature Sodium 138 136 - 145 [facility] mmol/L [facility] Potassium 4.2 3.5 - 5.0 [facility] mmol/L [facility] Chloride 99 96 - 110 mmol/L [facility] CO2 Total 29 22 - 32 mmol/L [facility] Glucose 113 (H) 70 - 100 mg/dL [facility] BUN 17 10 - 26 mg/dL [facility] Creatinine 0.90 0.66 - 1.25 [facility] mg/dL [facility] eGFR [address] >60 [facility] mL/min/1.73m2 [facility] Total Protein 6.8 [...] HOSPITAL LAB Calcium 8.7 8.5 - 10.5 [facility] mg/dL [facility] Albumin/Globulin Ratio 1.3 1.0 - 2.5 [facility] ME D [facility] Anion Gap 10 5 - 14 [facility] Specimen Blood - Venous blood (substance) Performing Organization Address City/State/ZIP Code Phon e Number [facility] [address] [place] [address] ECG REPORT - SCANNED (12/31/2021 8:48 EST) Specimen Narrative This result has an attachment that is no t available. ED LUMBAR PUNCTURE BEDSIDE OR CLINIC PERFORMED (12/30/2021 21:31 EST) Narrative [facility] EKG - 12/30/2021 21:3 1 EST Faustino Shi MD ? 12/30/2021 23:08 Lumbar Puncture Date/Time: 12/30/2021 21:31 Performed by: Faustino Shi MD Authorized by: Faustino Shi MD Consent: ??Consent obtained: ??Verbal ??Consent given by: ??Patient ??Risks discussed: ??Bleeding, infectio n, pain, headache and nerve damage ??Alternatives discussed: ??Alternative treatment and observation Clever protocol: ??Procedure explained and questions ans wered [...] well, no immediate complications Performing Organization Address [facility]/ZIP Code Phon e Number [facility] EKG CELL COUNT, CSF (12/30/2021 21:23 EST) RBC, CSF 0Comment: None /cmm [facility] Nucleated Cells, 0Comment: None 0 - 5 /cmm [facility] CSF Seen [facility] Total Volume CSF 3.5 ml [facility] Tube Cntd. 4 [facility] Comment, CSF Clear and [facility] colorless [facility] Tube Vol. 1.0 ml [facility] Specimen Fluid - Cerebrospinal fluid sample (spec imen) Performing Organization Address [facility] Phon e Number [facility] [address] [place] [address] BACTERIAL CULTURE/SMEAR (12/30/2021 21:23 EST) Pathologist Sig nature Organism ID No Growth [facility] Smear No Neutrophils [facility] SeenComment: Cytospin [facility] gram stain interpreted. Smear No bacteria seen [facility] Specimen Fluid - Cerebrospinal fluid sample (spec imen) Performing Organization Address [facility] Phon e Number [facility] [address] [place] [address] (ABNORMAL) TOTAL PROTEIN, CSF (12/30/2021 21:23 EST) Pathologist Sig nature Total Protein, CSF 47 (H) 12 - 45 mg/dL [facility] Specimen Fluid - Cerebrospinal fluid sample (spec imen) Performing Organization Address [facility] Phon e Number [facility] [address] [place] [address] GLUCOSE CSF (12/30/2021 21:23 EST) Glucose, CSF 59 40 - 70 mg/dL [facility] Comment: [facility] NOTE: Reference range for Glucose in CSF: 60% - 80% of the S lucy/Plasma Glucose Specimen Fluid - Cerebrospinal fluid sample (spec imen) Performing Organization Address [facility] Code Phon e Number [facility] [address] [place] [address] CT HEAD WO CONTRAST (12/30/2021 20:45 EST) Anatomical Region Laterality Modality Head Computed Tomography Specimen Impressions [facility] RADIOLOGY MAIN CAMPUS - 12/30/2021 21:13 EST No hydrocephalus, acute intracranial hemorrhage, or mass effect. THIS DOCUMENT HAS BEEN ELECTRONICALLY SI GNED BY ANDREW CHRIS MD FOR ANY QUESTIONS OR CONCERNS REGARDING THIS REPORT PLEASE CALL [facility] AT [phone] Narrative [facility] RADIOLOGY MAIN CAMPUS - 12/30/2021 [...] REGARDING THIS REPORT PLEASE CALL [facility] AT [phone] Performing Organization Address City/State/ZIP Code Phon e Number [facility] RADIOLOGY [facility]US EKG 12-LEAD (12/30/2021 19:42 EST) Specimen Narrative [facility] EPIPHANY - 8:43 EST ? CV ? Test Date: ?2021-12-30 Pat Name: ? HA SORIA ?Department: ? Room: ? C03 Gender: ? Male ? Diesel Engineer: ?? LR : ?1965 ? Requested By: HEDY Eisenberg Order Number: [id number] ? Reading : ?? IDALIA SANTOS MD ? Measurements Intervals ?[place] ? Rate: ? 61 ? P: ?78 MS: ? 142 ?QRS: ?61 QRSD: ? 90 [...] Procedure Note Idalia Santos MD - 12/31/2021 [facility] Test Date: 2021-12-30 Pat Name: HA SORIA Department: Room: C03 Gender: Male Diesel Engineer: FABIANO : 1965 Requested By: HEDY Eisenberg Order Number: [id number] Reading MD: Shabbir SANTOS MD Measurements Intervals [place] Rate: 61 P: 78 MS: 142 QRS: 61 QRSD: 90 T: 62 [...] Code Phon e Number [facility] EPIPHANY (ABNORMAL) COMPLETE BLOOD COUNT AND DIFFERENTIAL (12/30/2021 19:38 EST) Pathologist Sig nature WBC 7.17 4.00 - 10.40 [facility] K/[facility] RBC 5.28 4.36 - 5.78 [facility] Hemoglobin 15.0 13.8 - 17.3 [facility] gm/dL [facility] HCT 43.4 39.5 - 50.2 % [facility] MCV 82 81 - 95 fl [facility] MCH 28.4 27.6 - 33.0 pg [facility] MCHC 34.6 32.8 - 36.4 [facility] gm/dL [facility] RDW-CV 13.7 <14.2 % [facility] RDW-SD 41.0 <46.0 fl [facility] PLT 372 141 - 377 K/cmm [facility] MPV 8.7 (L) 9.5 - 12.7 fl [facility] Neutrophils 68.0 % [facility] Lymphocytes 19.9 % [facility] Monocytes 9.9 % [facility] Eosinophils 1.1 % [facility] Basophils 0.4 % [facility] Immature Grans 0.7 % [facility] Absolute Neutrophils 4.87 2.20 - 8.85 [facility] K/[facility] LAB Absolute Lymphocytes 1.43 1.09 - 3.30 [facility] Absolute Monocytes 0.71 0.10 - 0.80 [facility] Absolute Eosinophils 0.08 0.03 - 0.61 [facility] Absolute Basophils 0.03 0.01 - 0.11 [facility] K/cmm [facility] Absolute Immature 0.05 0.00 - 0.06 [facility] Grans K/cmm [facility] Type of Differential: Auto [facility] Specimen Blood - Venous blood (substance) Performing Organization Address City/State/ZIP Code Phon e Number [facility] [address] [place] [address] (ABNORMAL) C REACTIVE PROTEIN (12/30/2021 19:38 EST) Pathologist Sig nature C-Reactive Protein 10.0 (H) <10.0 mg/L [facility] Specimen Blood - Venous blood (substance) Performing Organization Address City/State/ZIP Code Phon e Number [facility] [address] [place] [address] from Last 3 Months Additional Health Concerns Infection Onset Date Last Indicated MRSAComment: Hx of FAKG-Zqey-29/23/2020 08/29/2021 08/29/2021 C. Stoner 12/31/21 Insurance Payer Benefit Plan / Subscriber ID Effective Phone Address T ype Group Dates [place] [id number] 2021-Prese [address] Medicaid [place], [facility] [address] (Work) [phone] [place] Personal/Family Self 1965 [address] [phone] [place] (Work[place] [address] [place] Personal/Family Self 1965 [address] [phone] [place] (Work) [address] [place] Personal/Family Self 1965 [phone] [phone] [place] (Work) [address] [place] Personal/Family Self 1965 [phone] [facility] (Home) [facility] [phone] [place] (Work) [address] [place] Personal/Family Self 1965 [phone] [address] [facility] [address] (Home) [facility] [phone] [place] (Work) [address] [place] Personal/Family Self 1965 [phone] [address] [facility] [address] (Home) [facility] [phone] [place] (Work) [address] [place] Personal/Family Self 1965 [phone] [facility] (Home) [facility] [phone] [place] (Work) [phone] Care Teams Cook Roast Relationship Specialty Start Date End Date Marcy Alvarenga, PCP - General Family Medicine - Primary 1 11/13/18 FUNDING ANALYST Care [address] [place] [phone]
--- OUTSIDE RECORDS SUMMARY | 2022-03-17 20:19 | XMS_ITS | Encounter Summary ---
:1965 Author Organization [facility] Address [address] [place] [address] Care Team Providers Name Role Phone Marcy Alvarenga VACUUM METALIZER OPERATOR Primary Care Provider [phone] Reason for Referral Consult (See Order Priority) - Authorization Not Required Specialty Diagnoses / Procedures Referred By Contact Refer red To Contact Diagnoses Coccidioidomycosis Other chronic osteomyelitis of left tibia (HCC) Lilian Rushing MD Moschetti, Wayne E, MD [address] 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 Requesting eval for surgical debridement.. Dr. Rainey recommended by Ortho at [facility]. Reason for Visit Reason Onset Date Comments Medication Management 01/16/2022 Encounter Details Date Type Department Care Team Description 01/16/2022 Telephone [facility] - Jennie Rushing MD Medication Management [facility] Infectious Dise ase [address], [address] [place], [place] [address] [place] [phone] (Wo rk) Social History Tobacco Use Types [...] a message back from Dr. Easton at [facility] who saw Poli for Ortho. He recommended seeing Dr. Rainey at [facility]. I'll put in a referral. Can we let Poli know? Telephone Encounter - Aissatou Iraheta, RN - 01/16/2022 1602 EDT Read the below note to patient. Her verbalized understanding. No further questions. Telephone Encounter - Lilina Rushing MD - 01/16/2022 2527 EDT Received call from Dr. Dixon. Returned his call today - He recommend that I get in touch with Dr. Jonnie Guevara at [facility]. He is a spine surgeon but knows about bones and Cocci as he used to work in [place] and has collaborated with Dr. Dixon on other cases. He may know of an orthopedic surgeon in the area that would be willing to take on Poli's case. There is also the medication previously mentioned, olorofim, that is available at [facility] or the [facility]. Currently undergoing trials for treatment failures, which Poli would be qualified for most likely. Dr. 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 I'll start by contacting Dr. Guevara to see if there's an orthopedic surgeon in the area that couldsee Poli or if he should go to [facility]. [email or web address] documented in this encounter Plan of Treatment Upcoming Encounters Date Type Specialty Care Team Description 04/14/2022 Office Visit Infectious Disease Lilian Rushing MD [address] [place] [address], [address] [place] [address] (Wo rk) Scheduled Referrals [...] Last Indicated Resolved Time MRSAComment: Hx of DJLQ-Zwld-80/23/2020 08/29/2021 08/29/20 21 C. Stoner 12/31/21 documented as of this encounter Care Teams Radiation Protection Specialist Relationship Specialty Start Date End Date Gil-Marcy Santos, PCP - General Family Medicine - Primary 1 11/13/18 VACUUM METALIZER OPERATOR Care [address] [place] [phone] documented as of this encounter
--- OUTSIDE RECORDS SUMMARY | 2022-03-17 20:19 | XMS_ITS | Encounter Summary ---
:1965 Author Organization [facility] Address [address] [place] [address] Care Team Providers Name Role Phone Marcy Alvarenga ADMISSION SPECIALIST Primary Care Provider [phone] Reason for Visit Reason Onset Date Comments Urinary Tract Infection 02/24/2022 Encounter Details Date Type Department Care Team Description 02/24/2022 Telephone [facility] [place] Urinary Tract [facility] Family Medicine - Marcy Ruiz ADMISSION SPECIALIST Infection [place] [address] [facility] [address] 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 Please call shellie back at [phone] signed by Argelia Guo at 02/24/2022 15:06 EDTdocumented in this encounter Plan of Treatment Upcoming Encounters Date Type Specialty Care Team Description 04/14/2022 Office Visit Infectious Disease Lilian Rushing MD [address] [place] [address] [address] [place] [address] (Wo rk) Scheduled Orders Name Type Priority Associated Diagnoses Order S chedule UA WITH REFLEX SEDIMENT Lab Routine Dysuria Expe cted: 02/24/2022 (CULTURE IF POS) (Approximat e), Expires: 02/24/2023 documented as of this encounter Visit Diagnoses Diagnosis Dysuria - Primary documented in this encounter Additional Health Concerns Infection Onset Date Last Indicated Resolved Time MRSAComment: Hx of LAXT-Ocan-15/23/2020 08/29/2021 08/29/20 21 C. Stoner 12/31/21 documented as of this encounter Care Teams Social Service Worker Relationship Specialty Start Date End Date Gil-Marcy Santos, PCP - General Family Medicine - Primary 1 11/13/18 ADMISSION SPECIALIST Care [address] [place] [address] [address] [place] [address] documented as of this encounter
--- OUTSIDE RECORDS SUMMARY | 2022-03-17 20:19 | XMS_ITS | Encounter Summary ---
:1965 Author Organization [facility] Address [address] [place] [address] Care Team Providers Name Role Phone Marcy Alvarenga BED CONTROL SPECIALIST Primary Care Provider [phone] Reason for Visit Reason Onset Date Comments Orders (Non Pre-visit) 02/27/2022 Encounter Details Date Type Department Care Team Description 02/27/2022 Telephone [facility] - [place] Orders (Non Pre-visit) [facility] Family Medicine - Marcy Ruiz NP [address], [facility] [address] [place] [address] [place] [phone] (Wo rk) Social History Tobacco Use [...] Miscellaneous Notes Telephone Encounter - Marcy Alvarenga BED CONTROL SPECIALIST - 02/27/2022 1721 EDT [place] for skilled [...] facility. I provided the verbal order. To [facility] to sign off. documented in this encounter Plan of Treatment Upcoming Encounters Date Type Specialty Care Team Description 04/14/2022 Office Visit Infectious Disease Lilian Rushing MD [address] [facility] [address] [place] [address] (Wo rk) documented as of this encounter Visit Diagnoses Not on filedocumented in this encounter Additional Health Concerns Infection Onset Date Last Indicated Resolved Time MRSAComment: Hx of MJPR-Foje-85/23/2020 08/29/2021 08/29/20 21 C. Stoner 12/31/21 documented as of this encounter Care Teams Rn Telephonic Relationship Specialty Start Date End Date Marcy Alvarenga, PCP - General Family Medicine - Primary 1 11/13/18 BED CONTROL SPECIALIST Care [address] [place] [address] [address] [place] [address] documented as of this encounter
--- OUTSIDE RECORDS SUMMARY | 2022-03-17 20:19 | XMS_ITS | Encounter Summary ---
:1965 Author Organization [facility] Address [address] [place] [address] Care Team Providers Name Role Phone Marcy Alvarenga PILL PACKER Primary Care Provider [phone] Encounter Details Date Type Department Care Team Description 03/12/2022 Transcribe Orders [facility] [address] [facility] [address] [place], [place] [address] FLO[address] [address] [place], [place] [id number] [phone] Social History Tobacco Use Types Packs/Day Years [...] Visit Infectious Disease Lilian Rushing MD [address] [place] [address] [address] [place] [address] (Wo rk) documented as of this encounter Visit Diagnoses Not on filedocumented in this encounter Additional Health Concerns Infection Onset Date Last Indicated Resolved Time MRSAComment: Hx of YODF-Osoq-05/23/2020 08/29/2021 08/29/20 21 C. Stoner 12/31/21 documented as of this encounter Care Teams Chiropractic Teacher Relationship Specialty Start Date End Date Gil-Marcy Santos, PCP - General Family Medicine - Primary 1 11/13/18 PILL PACKER Care [address] [place] [address] [address] [place] [address] documented as of this encounter
--- OUTSIDE RECORDS SUMMARY | 2022-03-17 20:19 | XMS_ITS | Encounter Summary ---
:1965 Author Organization [facility] Address [address] [place] [address] Care Team Providers Name Role Phone Marcy Alvarenga APPRENTICE PLUMBER Primary Care Provider [phone] Reason for Visit Reason Onset Date Comments Patient Information Update 02/26/2022 [facility] TCM Encounter Details Date Type Department Care Team Description 02/26/2022 Telephone [facility] - [place], Patient Information [facility] [place] Medicine - Marcy Ruiz, APPRENTICE PLUMBER Update ([facility] TCM) [address], [facility] [address] [place] [address] [place] [phone] (Wo rk) Social History Tobacco Use [...] La Harper, RN - 03/05/2022 0948 EDT [facility] Medicine [facility] TCM Note Reviewed discharge paperwork/notes from [facility] Ha was admitted 02/18/22 and discharged on 02/21/22 with HH services to [facility] Dx: SAGAR, septic arthritis of Left knee Hx: fungal infection of Left knee, HIV infection, MRSA positive Was discharged home with PICC line. To continue IV anbx until 03/18/22 - amphotericin 300mg IV daily Due for CBC and CMP on 03/10/22 Has f/u scheduled already with Dr. Rainey at [facility] Ortho on 03/31/[address] Kristan ECHEVERRIA elephone Encounter - Adriana Peña - 02/26/2022 1307 EDT Admit Date: 02/18/22 Discharge Date: 02/21/22 Facility: [facility] Discharge Location: home with services through [facility] Diagnosis:SAGAR; septic arthritis of knee, left * [facility] TCM scanned to pt docs. documented in this encounter Plan of Treatment Upcoming Encounters Date Type Specialty Care Team Description 04/14/2022 Office Visit Infectious Disease Lilian Rushing MD [address] [place] [address], [address] [place], [place] [phone] (Wo rk) documented as of this encounter Visit Diagnoses Not on filedocumented in this encounter Additional Health Concerns Infection Onset Date Last Indicated Resolved Time MRSAComment: Hx of PIXB-Kbev-43/23/2020 08/29/2021 08/29/20 21 C. Stoner 12/31/21 documented as of this encounter Care Teams Biostatistics Director Relationship Specialty Start Date End Date Gil-Marcy Santos, PCP - General Family Medicine - Primary 1 11/13/18 APPRENTICE PLUMBER Care [address] [place] [phone] documented as of this encounter
--- OUTSIDE RECORDS SUMMARY | 2022-03-17 20:20 | XMS_ITS | Encounter Summary ---
:1965 Author Organization [facility] Address [address] [place] [address] Care Team Providers Name Role Phone Marcy Alvarenga STAVE INSPECTOR Primary Care Provider [phone] Encounter Details Date Type Department Care Team Description 12/24/2020 Lab Requisition [facility] Outr Resulting Lab, Pathology & Laboratory Provider [facility] [address] [id number] Social History Tobacco Use Types Packs/Day Years [...] Visit Infectious Disease Lilian Rushing MD [address] [facility] [address] [place] [address] (Wo rk) documented as of this encounter Procedures Procedure Name Priority Date/Time Associated Diagnosis Comme nts ANAEROBE CULTURE, Routine 12/24/2020 11:05 Result s for this REFERENCE EST procedure are i n the results section. documented in this encounter Results ANAEROBE CULTURE, REFERENCE (12/24/2020 11:05 EST) Pathologist Sig nature Organism ID No Anaerobes [facility] Isolated LABORATORY SERVICES Specimen Fluid - Entire knee region (body structu re) Performing Organization Address City/State/ZIP Code Phon e Number [facility] [address] [place] [address] SERVICES documented in this encounter Visit Diagnoses Not on filedocumented in this encounter Additional Health Concerns Infection Onset Date Last Indicated Resolved Time MRSAComment: Hx of AHSC-Aevn-10/23/2020 08/29/2021 08/29/20 21 C. Stoner 12/31/21 documented as of this encounter Care Teams Supervisor Grips Relationship Specialty Start Date End Date Gil-Marcy Santos, PCP - General Family Medicine - Primary 1 11/13/18 STAVE INSPECTOR Care [address] [place] [address] [address] [place] [address] documented as of this encounter
--- OUTSIDE RECORDS SUMMARY | 2022-03-17 20:20 | XMS_ITS | Encounter Summary ---
:1965 Author Organization [facility] Address [address] [place] [address] Care Team Providers Name Role Phone Marcy Alvarenga DUMP TRUCK DRIVER Primary Care Provider [phone] Reason for Visit Reason Onset Date Comments Appointment Related 06/20/2021 Encounter Details Date Type Department Care Team Description 06/20/2021 Telephone [facility] - [facility] La Harper RN Appointment Related Family Medicine - [place] [address], [address] [place] [address] Social History Tobacco Use Types [...] Office Visit Infectious Disease Lilian Rushing MD [address] [place] [address] [address] [place] [address] (Wo rk) documented as of this encounter Visit Diagnoses Not on filedocumented in this encounter Care Teams Food Counter Worker Relationship Specialty Start Date End Date Marcy Alvarenga, PCP - General Family Medicine - Primary 1 11/13/18 DUMP TRUCK DRIVER Care [address] [place] [address] 2 [place] [phone] documented as of this encounter
--- OUTSIDE RECORDS SUMMARY | 2022-03-17 20:20 | XMS_ITS | Encounter Summary ---
:1965 Author Organization [facility] Address [address] [place] [address] Care Team Providers Name Role Phone Marcy Alvarenga AGILE SCRUM MASTER Primary Care Provider [phone] Reason for Visit Reason Comments Knee Pain Left knee pain Pain Referral (Routine) - Specialty Report Received Specialty Diagnoses / Procedures Referred By Contact Refer red To Contact Orthopedic Surgery Diagnoses DJD (degenerative joint disease) Reginaldo Laura MD [address] [facility] [place], [place] [address] [address] [place] [address] Phone: Fax: Referral ID Status Reason Start Date Expiration Date Visits V isits Requested Authorized [id number] Specialty 1 1 Report Received Encounter Details Date Type Department Care Team Description 06/18/2021 Office Visit [facility] Rustam, Arthritis of left knee Total Joint Program - Frankie Tavares (Primary Dx) [address] [facility] [address] [place], [facility] [phone] Social History Tobacco Use Types Packs/Day Years [...] describes knee swelling. When he was in [place] he suffered a Coccidioides infection. Subs equently, [...] is being followed by Dr. Rushing in [facility]. He was previously evaluated by Dr. Laura in [facility]. According to him, the knee was [...] Office Visit Infectious Disease Lilian Rushing MD [address] [place] [address] [address] [place] [address] (Wo rk) documented as of this encounter Visit Diagnoses Diagnosis Arthritis of left knee - Primary Unspecified arthropathy, lower leg documented in this encounter Care Teams Cut Out Press Operator Relationship Specialty Start Date End Date Gil-Marcy Santos, PCP - General Family Medicine - Primary 1 11/13/18 AGILE SCRUM MASTER Care [address] [place] [address] 2 [place] [phone] documented as of this encounter
--- OUTSIDE RECORDS SUMMARY | 2022-03-17 20:20 | XMS_ITS | Encounter Summary ---
:1965 Author Organization [facility] Address [address] [place] [address] Care Team Providers Name Role Phone Marcy Alvarenga CLIENT BUSINESS MANAGER Primary Care Provider [phone] Encounter Details Date Type Department Care Team Description 06/02/2021 Results Only Imaging [facility] - Lilian Rushing MD [facility] Radiology Resul ts 130 [facility] [address] [facility] [address], [address] [place] [address] [place], [place] [phone] (Wo rk) Social History Tobacco Use [...] Visit Infectious Disease Lilian Rushing MD [address] [place] [address], [address] [place] [address] (Wo rk) documented as of this encounter Procedures Procedure Name Priority Date/Time Associated Diagnosis Comme nts MR KNEE W WO 06/02/2021 10:08 Results for this CONTRAST LEFT EDT procedure are in the results section. documented in this encounter Results MR KNEE W WO CONTRAST LEFT (06/02/2021 10:08 EDT) Specimen Narrative RADIOLOGY - 06/02/2021 10:08 EDT ? EXAM: [...] CC: ? Transcribed Date/Time: 06/02/2021 (1008) ? Steam Clothes Press Operator: ? Printed Date/Time: 06/02/2021 (10 08) ? [...] MD CC: Transcribed Date/Time: 06/02/2021 (1008 ) Steam Clothes Press Operator: Printed Date/Time: 06/02/2021 (1000) PAGE 1 Signed Report Performing Organization Address City/State/ZIP Code Phon e Number RADIOLOGY documented in this encounter Visit Diagnoses Not on filedocumented in this encounter Additional Health Concerns Infection Onset Date Last Indicated Resolved Time MRSAComment: Hx of GIBR-Rube-31/23/2020 08/29/2021 08/29/20 21 C. Stoner 12/31/21 documented as of this encounter Care Teams Senior Living Sales Counselor Relationship Specialty Start Date End Date Gil-Marcy Santos, PCP - General Family Medicine - Primary 1 11/13/18 CLIENT BUSINESS MANAGER Care [address] [place] [phone] documented as of this encounter
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
--- OUTSIDE RECORDS SUMMARY | 2022-03-17 20:20 | XMS_ITS | Encounter Summary ---
:[address] [facility] Address [address] [place] [address] Care Team Providers Name Role Phone Marcy Alvarenga GANG RIDER Primary Care Provider [phone] Reason for Visit Reason Onset Date Comments Prior Auth, Medication 09/09/2021 Encounter Details Date Type Department Care Team Description 09/09/2021 Telephone [facility] - Aissatou Iraheta RN Prior Auth, Medication [facility] [place] [place] Infectious Dise ase [address] [place] [address] [place], [place] [phone] Social History Tobacco Use Types Packs/Day Years [...] been approved. [facility] Encounter - Aissatou Iraheta RN - 09/09/2021 1657 EST PA for Posaconazole 100mg Submitted via cover [employer]. documented in this encounter Plan of Treatment Upcoming Encounters Date Type Specialty Care Team Description 04/14/2022 Office Visit Infectious Disease Lilian Rushing MD [address] [place] [address] [address] [place], [place] [phone] (Wo rk) documented as of this encounter Visit Diagnoses Not on filedocumented in this encounter Additional Health Concerns Infection Onset Date Last Indicated Resolved Time MRSAComment: Hx of YKPZ-Cpbj-42/23/2020 08/29/2021 08/29/20 21 C. Stoner 12/31/21 documented as of this encounter Care Teams Cupola Melter Helper Relationship Specialty Start Date End Date Gil-Marcy Santos, PCP - General Family Medicine - Primary 1 11/13/18 GANG RIDER Care [address] [place] [address] 2 [place] [phone] documented as of this encounter
--- OUTSIDE RECORDS SUMMARY | 2022-03-17 20:20 | XMS_ITS | Encounter Summary ---
:1965 Author Organization [facility] Address [address] [place] [address] Care Team Providers Name Role Phone Marcy Alvarenga PROFESSOR OF PHILOSOPHY Primary Care Provider [phone] Encounter Details Date Type Department Care Team Description 11/26/2020 Lab Requisition [facility] Outr Resulting Lab, Pathology & Laboratory Provider [facility] [address] [id number] Social History Tobacco Use Types Packs/Day Years [...] Visit Infectious Disease Lilian Rushing MD [address] [facility], [address] [place] [address] (Wo rk) documented as of this encounter Procedures Procedure Name Priority Date/Time Associated Diagnosis Comme nts T CELL SUBSETS Routine 11/26/2020 14:07 EST Resul ts for this procedure are i n the results section . documented in this encounter Results (ABNORMAL) IMMUNODEFICIENCY PANEL (11/26/2020 14:07 EST) Pathologist Sig nature % CD3 74 62 - 87 % [facility] % CD4 34 (L) 35 - 63 % [facility] % CD8 36 (H) 10 - 35 % [facility] Absolute CD4 600 329-1,427 Cells/uL [facility] Specimen Blood - Venous blood (substance) Performing Organization Address City/State/ZIP Code Phon e Number [facility] [address] [place] [address] SERVICES documented in this encounter Visit Diagnoses Not on filedocumented in this encounter Additional Health Concerns Infection Onset Date Last Indicated Resolved Time MRSAComment: Hx of NUKN-Qmhv-62/23/2020 08/29/2021 08/29/20 21 C. Stoner 12/31/21 documented as of this encounter Care Teams Investments Manager Relationship Specialty Start Date End Date Gil-Marcy Santos, PCP - General Family Medicine - Primary 1 11/13/18 PROFESSOR OF PHILOSOPHY Care [address] [facility] [address] [place] [address] documented as of this encounter
--- OUTSIDE RECORDS SUMMARY | 2022-03-17 20:20 | XMS_ITS | Encounter Summary ---
:[address] [facility] Address [address] [place] [address] Care Team Providers Name Role Phone Marcy Alvarenga GLASS EDGER Primary Care Provider [phone] Reason for Referral Radiology Services (Routine) - Specialty Report Received Specialty Diagnoses / Procedures Referred By Contact Refer red To Contact Radiology Diagnoses Coccidioidomycosis Lilian Rushing MD Procedures MR LUMBAR SPINE W WO CONTRAST [address] [facility], [address] [place] [address] Referral ID Status Reason Start Date Expiration Date Visits V isits Requested Authorized [id number] Specialty 01/17/2021 1 1 Report Received adiology Services (Routine) - Specialty Report Received Specialty Diagnoses / Procedures Referred By Contact Refer red To Contact Radiology Diagnoses Coccidioidomycosis Lilian Rushing MD Procedures MR HEAD W WO CONTRAST [address] [facility], [address] [place] [address] Referral ID Status Reason Start Date Expiration Date Visits V isits Requested Authorized [id number] Specialty 01/17/2021 1 1 Report Received Reason for Visit Reason Comments Follow-up Knee culture Encounter Details Date Type Department Care Team Description 01/17/2021 Office Visit [facility]se, Lilian Coccidio idomycosis (Primary Dx); - [facility] Zari Ruiz MD Arthritis of left knee; Disease [address] [facility] Asymptomatic HIV infection ([facility] [address], [address] [place] [address] [place], [place] [phone] Social History Tobacco Use Types Packs/Day [...] off antifungals. He was diagnosed with HIV [id number], but his inez CD4 is unknown. He has been well-controlled at least since 10/2015 with undetectable viral loads and CD4 counts in the 389-728 range. See other history review below. Records review: - 2015 ([place]) - no mention of Cocci in PCP notes - 2017 ([place]) - remote h/o Cocci and had swelling in R knee - 10/04/18 ([place]) - PCP visit, had Wayne's cyst of L knee, no pain. - Had been referred to Ortho 01/19/18 for h/o Cocci in that knee. Unclear if he was seen at Ortho. - My initial consult 04/29/19 - he was worried the Cocci was back, was having night sweats. - 05/30/19 did lztx-C-rhhzkc (negative) and referred to Ortho for knee tap with fungal stain/culture - F/u 09/01/19 - He reported that he was unable to get to Ortho appointment due to family issues - Epic change-over at [facility] 08/2019 - No-showed to Ortho appointment 12/01/19 [...] a steroid injection by Ortho here at [facility] - PCP follow up 08/17/20, lump on L scalp. I+D, bloody drainage, came back + MRSA, Doxy prescribed - F/U with me 12/03/20 - no mention of the knee I received a call from Dr. Laura at [facility] on 01/09/21. He had done a tap of the patient's knee in preparation for TKA. The tap was done on 12/24/20 and he had just been notified that the sample was growing mold. The isolate was sent to [facility] and onto [place] for identification. Verbal report of coccidioidomycosis but [...] bacteria Fungal culture - mold, sent to [place] for ID Radiology: Has MRI of the [...] 20,000 of these are diagnosed and reported, 5212-2853 produce pulmonary sequelae, 600-1000 spread hematogenously from [...] with the [facility] ([email or web address]/zjbcdd-vaqtb-ypvvuk/consult-vfce) since this is not a disease we commonly see in [place]. Because it may take another 4-6 weeks [...] SPINE W WO CONTRAST ??? Miscellaneous Test, [place] [facility] Orders Placed This Visit and Additions [...] [facility] Infectious Disease Office: [phone] Cc: Dr. Laura at [facility] Aissatou fiore RN - 01/17/2021 1300 EDT Pt is eligible for covid vaccine. documented in this encounter Plan of Treatment Upcoming Encounters Date Type Specialty Care Team Description 04/14/2022 Office Visit Infectious Disease Lilian Rushing MD [address] [place] [address], [address] [place] [address] (Wo rk) Scheduled Orders Name Type Priority Associated Diagnoses Order S chedule MR HEAD W WO CONTRAST Imaging Routine Coccidioidomycosis Ordered: 01/17/2021 MR LUMBAR SPINE W WO Imaging Routine Coccidioidomycosis O rdered: 01/17/2021 CONTRAST documented as of this encounter Procedures Procedure Name Priority Date/Time Associated Diagnosis Comme nts MISCELLANEOUS TEST, Routine 01/17/2021 13:40 Coccidioidomycosi s Results for this VERGAS EDT procedure are i n the results section. documented in this encounter Results MISCELLANEOUS TEST, VERGAS (01/17/2021 13:40 EDT) Pathologist [facility] MISCELLANEOUS TEST - SEE BELOW () [facility] Comment: [facility] Test ? Result ?? Flag [...] This test has been modified from the system engineer's instructions. Its performance characteristics were determined by [facility] in a manner consistent with CLIA requirements. This test has not been cleared or approved by the U.S. Food and Drug Administration. Test Performed by: [facility] - [address] [address] Hog Tender: Pritesh Mcgee M.D. Ph.D.; CLIA# [id number] Specimen Blood - Venous blood (substance) Performing Organization Address City/State/ZIP Code Phon e Number [facility] [address] [place] [address] documented in this encounter Visit Diagnoses Diagnosis Coccidioidomycosis - Primary Coccidioidomycosis, unspecified Arthritis of left knee Unspecified arthropathy, lower leg Asymptomatic HIV infection (HCC) Asymptomatic human immunodeficiency viru s (HIV) infection status documented in this encounter Care Teams Route Agent Relationship Specialty Start Date End Date Marcy Alvarenga, PCP - General Family Medicine - Primary 1 11/13/18 GLASS EDGER Care [address] [place] [phone] documented as of this encounter
--- OUTSIDE RECORDS SUMMARY | 2022-03-17 20:20 | XMS_ITS | Encounter Summary ---
:1965 Author Organization [facility] Address [address] [place] [address] Care Team Providers Name Role Phone Marcy Alvarenga FURNITURE UPHOLSTERER APPRENTICE Primary Care Provider [phone] Reason for Visit (Routine) - Receiving Office to Obtain Authorization Specialty Diagnoses / Procedures Referred By Contact Refer red To Contact Procedures Unknown, Provider, XR OUTSIDE IMAGES MSK Phone: Referral ID Status Reason Start Expiration Visits Visits Date Date Requested Authorized [id number] Receiving Office 02/12/2021 1 1 to Obtain Authorization Encounter Details Date Type Department Care Team Description 12/24/2020 Hospital Encounter [facility] Secondary Reads Social History Tobacco Use Types [...] 1 nael applied 0 swab topically PRN vnzlclf-gyz-smjvx-tenof Take 1 Tab by mouth 90 Tab 3 05/202106/18/2021 ALAFEN (GENVOYA) daily for 90 days. [phone] mg tabletIndications: HIV infection lisinopriL (PRINIVIL) 10 [...] Office Visit Infectious Disease Lilian Rushing MD [address] [place] [address], [address] [place] [address] (Wo rk) documented as [...] on filedocumented in this encounter Care Teams Pocket Secretary Assembler Relationship Specialty Start Date End Date Gil-Marcy Santos, PCP - General Family Medicine - Primary 1 11/13/18 FURNITURE UPHOLSTERER APPRENTICE Care [address] [place] [phone] documented as of this encounter
--- OUTSIDE RECORDS SUMMARY | 2022-03-17 20:20 | XMS_ITS | Encounter Summary ---
:1965 Author Organization [facility] Address [address] [place] [address] Care Team Providers Name Role Phone Marcy Alvarenga NATURAL SCIENCES DEPARTMENT CHAIR Primary Care Provider [phone] Encounter Details Date Type Department Care Team Description 12/03/2020 Lab Requisition [facility] Outr Resulting Lab, Pathology & Laboratory Provider [facility] [address] [address] Social History Tobacco Use Types Packs/Day Years [...] Visit Infectious Disease Lilian Rushing MD [address] [facility], [address] [place], [place] [address] (Wo rk) documented as of this encounter Procedures Procedure Name Priority Date/Time Associated Comments Diagnosis CHLAMYDIA/N. Routine 12/03/2020 11:45 Results for this GONORRHOEAE AMPLIFIED EST proced ure are in RNA the results section. documented in this encounter Results CHLAMYDIA/N. GONORRHOEAE AMPLIFIED RNA (12/03/2020 11:45 EST) Pathologist Sig nature Gonococcus Result Negative Negative [facility] Chlamydia Result Negative Negative [facility] Specimen Urine - Urine, Dirty Urine Performing Organization Address City/State/ZIP Code Phon e Number [facility] [address] [place] [address] SERVICES documented in this encounter Visit Diagnoses Not on filedocumented in this encounter Additional Health Concerns Infection Onset Date Last Indicated Resolved Time MRSAComment: Hx of QTUP-Tfzr-45/23/2020 08/29/2021 08/29/20 21 C. Stoner 12/31/21 documented as of this encounter Care Teams Account Manager B2B Relationship Specialty Start Date End Date Gil-Marcy Santos, PCP - General Family Medicine - Primary 1 11/13/18 NATURAL SCIENCES DEPARTMENT CHAIR Care [address] [place] [address] [address] [place] [address] documented as of this encounter
--- OUTSIDE RECORDS SUMMARY | 2022-03-17 20:20 | XMS_ITS | Encounter Summary ---
:1965 Author Organization [facility] Address [address] [place] [address] Care Team Providers Name Role Phone Marcy Alvarenga CONSTRUCTION HELPER Primary Care Provider [phone] Reason for Visit Reason Onset Date Comments [...] [address] be seen to [place] [address] please schedule with [phone] Rohit Rushing MD) Social History Tobacco Use [...] Visit Infectious Disease Lilian Rushing MD [address] [facility] [address] [place] [address] (Wo rk) documented as of this encounter Visit Diagnoses Not on filedocumented in this encounter Care Teams Flexo Folder Gluer Operator Relationship Specialty Start Date End Date Gil-Marcy Santos, PCP - General Family Medicine - Primary 1 11/13/18 CONSTRUCTION HELPER Care [address] [place] [address] 2 [place] [address] documented as of this encounter
--- OUTSIDE RECORDS SUMMARY | 2022-03-17 20:20 | XMS_ITS | Encounter Summary ---
:1965 Author Organization [facility] Address [address] [place] [address] Care Team Providers Name Role Phone Marcy Alvarenga RESTORATION OFFICER Primary Care Provider [phone] Reason for Visit Reason Comments Other Encounter Details Date Type Department Care Team Description 04/23/[address] [facility] Geoff Alvarenga, Other Infectious Disease RESTORATION OFFICER [address] [place] [address] [address] [phone] (Wo rk) Social History Tobacco Use [...] Office Visit Infectious Disease Lilian Rushing MD [address] [place] [address] [address] [place] [address] (Wo rk) documented as of this encounter Visit Diagnoses Not on filedocumented in this encounter Discontinued Medications Medication Sig Discontinue Reason Start Date End Date lisinopriL (PRINIVIL) 10 Take 1 Tab by 04/18/2020 mg tabletIndications: mouth daily. hypertension documented as of this encounter Additional Health Concerns Infection Onset Date Last Indicated Resolved Time MRSAComment: Hx of BEXT-Yqgf-94/23/2020 08/29/2021 08/29/20 21 C. Stoner 12/31/21 documented as of this encounter Care Teams Bed Laborer Relationship Specialty Start Date End Date Marcy Alvarenga, PCP - General Family Medicine - Primary 1 11/13/18 RESTORATION OFFICER Care [address] [place] [address] [address] [place] [address] documented as of this encounter
--- OUTSIDE RECORDS SUMMARY | 2022-03-17 20:20 | XMS_ITS | Encounter Summary ---
:1965 Author Organization [facility] Address [address] [place] [address] Care Team Providers Name Role Phone Marcy Alvarenga NAPPING MACHINE OPERATOR Primary Care Provider [phone] Reason for Referral Radiology Services (Routine/Next Available) - Closed Specialty Diagnoses / Procedures Referred By Contact Refer red To Contact Diagnoses Chronic pain of left knee Chaitanya Easton MD Procedures XR KNEE RIGHT 3 VIEWS [address] [place] [address] Referral ID Status Reason Start Date Expiration Date Visits Requ ested Visits Authorized [id number] Closed 03/27/2021 1 1 adiology Services (Routine/Next Available) - Closed Specialty Diagnoses / Procedures Referred By Contact Refer red To Contact Diagnoses Chronic pain of left knee Chaitanya Easton MD Procedures XR KNEE LEFT 4 OR MORE VIEWS [address] [place] [address] Referral ID Status Reason Start Date Expiration Date Visits Requ ested Visits Authorized [id number] Closed 03/27/2021 1 1 Reason for Visit Reason Onset Date Comments Knee Pain 03/27/2021 Encounter Details Date Type Department Care Team Description 03/27/2021 Orders Only [facility] Jr Easton ain of left Total Joint Program - Frankie Tavares knee (Primary Dx) [address] Vito Plasencia, So [facility] [phone] [phone] Social History Tobacco Use Types Packs/Day Years [...] Office Visit Infectious Disease Lilian Rushing MD [address] [place] [address] [address] [place] [address] (Wo rk) Scheduled Orders [...] leg documented in this encounter Care Teams Truck Engine Assembler Relationship Specialty Start Date End Date Gil-Marcy Santos, PCP - General Family Medicine - Primary 1 11/13/18 NAPPING MACHINE OPERATOR Care [address] [place] [address] 2 [place] [address] documented as of this encounter
--- OUTSIDE RECORDS SUMMARY | 2022-03-17 20:20 | XMS_ITS | Encounter Summary ---
:1965 Author Organization Health system Address [address] [place] [address] Care Team Providers Name Role Phone Marcy Alvarenga PLANT MAINTENANCE MANAGER Primary Care Provider [phone] Reason for Visit Reason Onset Date Comments Other 02/20/2021 returning Aissatou's call Encounter Details Date Type Department Care Team Description 02/20/2021 Telephone [facility] - Lilian Rushing, [facility] er (returning Aissatou's [facility] Dermatology MD call) [address] [place], [place] [id number] [place] [address], [place] [address] Social History Tobacco Use Types [...] EDT Pt returning Aissatou's call. CB # [phone] signed by Jeniffer Leiva at 02/22/2021 15:34 [...] Visit Infectious Disease Lilian Rushing MD [address] [place] [address], [address] [place] [address] (Wo rk) documented as of this encounter Visit Diagnoses Not on filedocumented in this encounter Care Teams Sld Teacher Relationship Specialty Start Date End Date Gil-Marcy Santos, PCP - General Family Medicine - Primary 1 11/13/18 PLANT MAINTENANCE MANAGER Care [address] [place] [address] 2 [place] [address] documented as of this encounter
--- OUTSIDE RECORDS SUMMARY | 2022-03-17 20:20 | XMS_ITS | Encounter Summary ---
:1965 Author Organization [facility] Address [address] [place] [address] Care Team Providers Name Role Phone Marcy Alvarenga AUDIOMETRIC TECHNICIAN Primary Care Provider [phone] Reason for Visit Reason Comments Follow-up HIV Infection Encounter Details Date Type Department Care Team Description 12/03/2020 Office Visit [facility] - Lilian Rushing Asy mptomatic HIV infection ([facility]) (Primary Dx); [facility] Infectious MD Medication monitoring encounter; Disease [address] [facility] High risk homosexual behavior [address] [facility], [address] [place] [address] [place] [phone] [address] Social History Tobacco Use Types Packs/Day [...] Sig Dispensed Refills Start Date End Date cfelqxl-rgv-xmuii-tenof Take 1 Tab by mouth 90 Tab 3 05/202106/18/2021 ALAFEN (GENVOYA) daily for 90 days. [phone] mg tabletIndications: HIV infection documented in this [...] increasing creatinine.Remote h/o coccidioidomycosis. He move to [facility] from [place] in the summer of 2018 to take care of his aging parents, but is planning on moving at some point. 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 He is now set up with [facility] for his HIV meds. 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 No other travel since [place]. No side effects from his medications and [...] Other Orders Placed This Visit Procedures ??? [facility] Sites, Chlamydia trachomatis and Neisseria gonorrhoea, Amplified RNA ??? Mis Sites, Chlamydia trachomatis and Neisseria gonorrhoea, Amplified RNA ??? Chlamydia/N. gonorrhoeae Amplified RNA Med Orders Placed This Visit and Additions to the Medication List Medications ??? xmvonys-uzi-zdmrh-tenof ALAFEN (GENVOYA) [phone] mg tablet Sig: Take 1 Tab by mouth daily for 90 days. Dispense: 90 Tab Refill: 3 Lilian Rushing MD, MPH [facility] Infectious Disease Office: [phone] documented in this encounter Miscellaneous Notes Result QuickNote - Aissatou Iraheta RN - 12/03/2020 1100 EST See TE, reviewing per ID protocol. documented in this encounter Plan of Treatment Upcoming Encounters Date Type Specialty Care Team Description 04/14/2022 Office Visit Infectious Disease Lilian Rushing MD [address] [place] [address], [address] [place] [address] (Wo rk) Scheduled Orders Name Type Priority Associated Diagnoses Order S chedule N. GONORRHOEAE AND Microbiology Routine Asymptomatic HIV Order ed: CHLAMYDIA TRACHOMATIS, infection ([facility]) 12/03/2020 [facility] SITES, AMPLIFIED High risk homosexua l RNA behavior N. GONORRHOEAE AND Microbiology Routine Asymptomatic HIV Order ed: CHLAMYDIA TRACHOMATIS, infection ([facility]) 12/03/2020 [facility] SITES, AMPLIFIED High risk homosexua l RNA behavior CHLAMYDIA/N. Microbiology Routine Asymptomatic HIV Ordered: GONORRHOEAE AMPLIFIED infection ([facility]) 12/03/2020 RNA High risk homosexual behavior documented as of this encounter Procedures Procedure Name Priority Date/Time Associated Diagnosis Comme nts MISCELLANEOUS TEST, Routine 12/03/2020 18:57 Asymptomatic HIV Results for this GREEN EST infection ([facility]) procedur e are in the results section. MISCELLANEOUS TEST, Routine 12/03/2020 11:45 Asymptomatic HIV Results for this GREEN EST infection ([facility]) procedur e are in the results section. CHLAMYDIA/GC AMPLIFIED Routine 12/03/2020 11:45 Asymptomatic H IV Results for this [facility] EST infection ([facility]) procedur e are in the results section. MISCELLANEOUS TEST, Routine 12/03/2020 11:40 Asymptomatic HIV Results for this GREEN EST infection ([facility]) procedur e are in the results section. documented in this encounter Results (ABNORMAL) MISCELLANEOUS TEST, [place] (12/03/2020 18:57 EST) [facility] MISCELLANEOUS TEST - SEE BELOW (A) () [facility] Comment: [facility] Test ? Result ?? Flag ??Unit ??RefValue ------ [facility] C trach/N gonor Amplified RNA ??SOURCE: ?THROAT ?C. trach, Misc, Amplified ?Negative ? Negative ?RNA ADDITIONAL INFORMATION ------ This report is intended for use in clinical monitoring and management of patients. ??It is not intended for use i n medical-legal applications. This test has been modified from the bushel worker's instructions. ??Its performance characteristics were determined by [facility] [...] This test has been modified from the bushel worker's instructions. ??Its performance characteristics were determined by [facility] in a manner consistent with CLIA requirements. ??This test has not been cleared or appr sylvester by the U.S. Food and Drug Administration. Test Performed by: [facility] - [address] [address] Scada Operator: Pritesh Mcgee M.D. Ph.D.; CLIA# [id number] Specimen Performing Organization Address City/State/ZIP Code Phon e Number [facility] [address] [place] [address] MISCELLANEOUS TEST, [place] (12/03/2020 11:45 EST) [facility] MISCELLANEOUS TEST - SEE BELOW () [facility] Comment: [facility] Test ? Result ?? Flag ??Unit ??RefValue ------ T.vaginalis, Misc, Amplified RNA ??SOURCE: ?URINE ?T.vaginalis, Misc, ? Negative ? Negative ?amplified RNA ADDITIONAL INFORMATION ------ This test has been modified from the bushel worker's instructions. Its performance characteristics were determined by [facility] in a manner consistent with CLIA requirements. This test has not been cleared or approv ed by the U.S. Food and Drug Administration. Test Performed by: [place] [address] Scada Operator: Pritesh Mcgee M.D. Ph.D.; CLIA# [id number] Specimen Performing Organization Address [facility] Phon e Number [facility] [address] [id number] CHLAMYDIA/GC AMPLIFIED PROBE (12/03/2020 11:45 EST) Chlamydia Result Negative Negative [facility] GC Result Negative Negative [facility] Comment: [facility] Source:URINE Test performed or referred by The [address] [address] SPECIMEN DESCRIP - DNR () [facility] Specimen Performing Organization Address [facility] Phon e Number [facility] [address] [place] [address] MISCELLANEOUS TEST, [place] (12/03/2020 11:40 EST) MISCELLANEOUS TEST - SEE BELOW () [facility] Comment: [facility] Test ? Result ?? Flag ??Unit ??RefValue ------ Misc C trach/N gonor Amplified RNA ??SOURCE: ?RECTUM ?C. trach, Misc, Amplified ?Negative ? Negative ?RNA ADDITIONAL INFORMATION ------ This report is intended for use in clinical monitoring and management of patients. ??It is not intended for use i n medical-legal applications. This test has been modified from the bushel worker's instructions. ??Its performance characteristics were determined by [facility] [...] This test has been modified from the bushel worker's instructions. ??Its performance characteristics were determined by [facility] in a manner consistent with CLIA requirements. ??This test has not been cleared or appr sylvester by the U.S. Food and Drug Administration. Test Performed by: [facility] [address] [place] [address] Scada Operator: Pritesh Mcgee M.D. Ph.D.; CLIA# [id number] Specimen Performing Organization Address City/State/[facility] Code Phon e Number [facility] [address] [place] [address] documented in this encounter Visit Diagnoses Diagnosis Asymptomatic HIV infection (HCC) - Prima ry Asymptomatic human immunodeficiency viru s (HIV) infection status Medication monitoring encounter Encounter for therapeutic drug monitorin g High risk homosexual behavior Problems related to high-risk sexual beh avior documented in this encounter Discontinued Medications Medication Sig Discontinue Reason Start Date End Date slvtmjo-rwe-wsfrf-tenof Take 1 Tab by mouth Reorder 06/04/2020 12/03/2020 ALAFEN (GENVOYA) daily for 90 days. [phone] mg tabletIndications: HIV infection documented as of this encounter Care Teams Pipeline Dispatch Operator Relationship Specialty Start Date End Date Gil-Marcy Santos, PCP - General Family Medicine - Primary 1 11/13/18 AUDIOMETRIC TECHNICIAN Care [address] [place] [phone] documented as of this encounter
--- OUTSIDE RECORDS SUMMARY | 2022-03-17 20:20 | XMS_ITS | Encounter Summary ---
:1965 Author Organization [facility] Address [address] [place] [address] Care Team Providers Name Role Phone Marcy Alvarenga CHILDCARE CENTER ADMINISTRATOR Primary Care Provider [phone] Encounter Details Date Type Department Care Team Description 12/20/[address] [facility] Geoff Alvarenga Family Medicine - Be nicol Ruiz, CHILDCARE CENTER ADMINISTRATOR [address] [facility] [address] [place] [address] [place] [address] (Wo rk) Social History [...] Visit Infectious Disease Lilian Rushing MD [address] [facility], [address] [place], [place] [address] (Wo rk) documented as of this [...] 13:15 EST) Pathologist Sig nature FTA-ABS - [facility] SEE NOTE [facility] Comment: CENTER LAB RPR SCREEN: ??REACTIVE 1:2 FTA ABS: REACTIVE [facility] [place] [place] Specimen Narrative [facility] - 021 8:15 EST AOT: 12/27/20 0938: FTABS REFLEX FOR RPR Performing Organization Address City/[facility]/ZIP Code Phon e Number [facility] [address] [place] [address] RAPID PLASMA REAGIN (RPR) WITH REFLEX, S (12/20/2020 13:15 EST) Pathologist Sig nature APID PLASMA REAGIN - Reactive NEG [facility] Specimen Performing Organization Address City/[facility]/ZIP Code Phon e Number [facility] [address] [place] [address] MISCELLANEOUS TEST, [place] (12/20/2020 13:15 EST) MISCELLANEOUS TEST - SEE BELOW () [facility] Comment: [facility] Test ? Result ?? Flag ??Unit ??RefValue ------ Misc C trach/N gonor Amplified RNA ??SOURCE: ?throat ?C. trach, Misc, Amplified ?Negative ? Negative ?RNA ADDITIONAL INFORMATION ------ This report is intended for use in clinical monitoring and management of patients. ??It is not intended for use i n medical-legal applications. This test has been modified from the schedule clerk's instructions. ??Its performance characteristics were determined by [facility] in a manner consistent with CLIA requirements. [...] This test has been modified from the schedule clerk's instructions. ??Its performance characteristics were determined by [facility] in a manner consistent with CLIA requirements. ??This test has not been cleared or appr sylvester by the U.S. Food and Drug Administration. Test Performed by: [facility] - [address] [address] Crystal Lapper: Pritesh Mcgee M.D. Ph.D.; CLIA# [id number] Specimen Performing Organization Address City/State/ZIP Code Phon e Number [facility] [address] [place] [address] documented in this encounter Visit Diagnoses Not on filedocumented in this encounter Care Teams Optician Relationship Specialty Start Date End Date Marcy Alvarenga, PCP - General Family Medicine - Primary 1 11/13/18 CHILDCARE CENTER ADMINISTRATOR Care [address] [place] [address] documented as of this encounter
--- OUTSIDE RECORDS SUMMARY | 2022-03-17 20:20 | XMS_ITS | Encounter Summary ---
:[address] [facility] Address [address] [place] [address] Care Team Providers Name Role Phone Marcy Alvarenga DETASSELING CREW SUPERVISOR Primary Care Provider [phone] Encounter Details Date Type Department Care Team Description 02/15/2021 Results Only [facility] [place] [facility] [place] Lilian Rushing MD Infectious Disease [address], [address] [place], [place] [address] [place] [phone] (Wo rk) Social History Tobacco Use [...] Visit Infectious Disease Lilian Rushing MD [address] [place] [address], [address] [place] [address] (Wo rk) documented as of this encounter Procedures Procedure Name Priority Date/Time Associated Comments Diagnosis MISCELLANEOUS TEST, Routine 02/15/2021 16:54 Resu lts for this [place] EDT procedure are i n the results section. COMPREHENSIVE Routine 02/15/2021 16:54 Results fo r this METABOLIC PANEL (CMP) EDT proced ure are in the results section. documented in this encounter Results MISCELLANEOUS TEST, [place] (02/15/2021 16:54 EDT) [facility] MISCELLANEOUS TEST - SEE BELOW () [facility] Comment: [facility] Test ?Result ?Flag ??Unit ?RefValue ------ Itraconazole, S ? 2.3 ? mcg/mL ? REFERENCE VALUE ------ >0.5 (localized infection), >1.0 (systemic infection) ??Hydroxyitraconazole ? 1.7 ? mcg/mL ? REFERENCE VALUE ------ No therapeutic range established; activity and serum concentration are similar to parent drug. ADDITIONAL INFORMATION ------ This test was developed and its performance characteri stics determined by [facility] in a manner consistent with CLIA requirements. This test has not been cleared or approv ed by the U.S. Food and Drug Administration. Test Performed by: [facility] [place] [address] Ict Managers: Pritesh Mcgee M.D. Ph.D.; CLIA# [id number] Specimen Performing Organization Address City/State/ZIP Code Phon e Number [facility] [address] [place] [address] COMPREHENSIVE METABOLIC PANEL (CMP) (02/15/2021 16:54 EDT) [place]IN - [facility] [place] 4.0 3.4 - 4.9 [facility] g/dL [facility] ALKALINE 90 38 - 126 U/L [facility] PHOSPHATASE - [facility] BILIRUBIN TOTAL 0.2 0.2 - 1.3 [facility] mg/dL [facility] BUN - [facility] [place] [place] 21 10 - 26 mg/dL [facility] CALCIUM - [facility] [place] 9.6 8.5 - 10.5 [facility] mg/dL [facility] Chloride 99 96 - 110 [facility] mmol/L [facility] CO2 Total 29 21 - 32 mEq/L [facility] CREATININE 1.03 0.66 - 1.25 [facility] mg/dL [facility] eGFR >60 [facility] Comment: [facility] Chronic renal impairment is defined as GFR <60 Multiply result by 1.210 for patients . Anion Gap 12 0 - 18 [facility] GLUCOSE - [facility] [place] 90 70 - 100 [facility] mg/dL [facility] Potassium 4.6 3.5 - 5.0 [facility] mEq/L [facility] Sodium 140 136 - 145 [facility] mEq/L [facility] TOTAL PROTEIN - 7.2 6.2 - 8.2 [facility] gm/dL [facility] SGOT/AST - [facility] [place] 23 17 - 59 U/L [facility] SGPT/ALT - [facility] [place] 20 0 - 50 U/L [facility] Specimen Narrative [facility] - 021 18:50 EDT Does PT Have a Latex Allergy? NO Performing Organization Address City/State/ZIP Code Phon e Number [facility] [address] [place] [address] documented in this encounter Visit Diagnoses Not on filedocumented in this encounter Care Teams Software Test Automation Engineer Relationship Specialty Start Date End Date Gil-Marcy Santos, PCP - General Family Medicine - Primary 1 11/13/18 DETASSELING CREW SUPERVISOR Care [address] [place] [phone] documented as of this encounter
--- OUTSIDE RECORDS SUMMARY | 2022-03-17 20:20 | XMS_ITS | Encounter Summary ---
:1965 Author Organization [facility] Address [address] [place] [address] Care Team Providers Name Role Phone Marcy Alvarenga SUPERVISOR CAR INSTALLATIONS Primary Care Provider [phone] Reason for Referral Radiology Services (Routine/Next Available) - Authorization Not Required Specialty Diagnoses / Procedures Referred By Contact Refer red To Contact Radiology Diagnoses Coccidioidomycosis Arthritis of left knee Lilian Rushing MD [facility] Mri Procedures MR KNEE W WO CONTRAST LEFT 130 [facility] 130 [facility] [address], [address] [place] [address] [place] [address] Referral ID Status Reason Start Expiration Visits Visits Date Date Requested Authorized [id number] Authorization Not 09/03/2021 1 1 Required Reason for Visit Reason Comments Follow-up Patient states no questions or concerns Encounter Details Date Type Department Care Team Description 09/03/2021 Office Visit [facility] Lilian Rushing Coccidio idomycosis (Primary Dx); - [facility] Zari Ruiz MD Arthritis of left knee; Disease [address] Asymptomatic HIV infection (HCC); 130 [facility] [address], [address] Medication monitoring encounter; [place] [address] [place] Flu vaccine need [phone] Social History Tobacco Use Types Packs/Day Years [...] up with dr. Jacobs from the [facility] [place]. See 07/03/21 note for details of that [...] MR KNEE W WO CONTRAST LEFT ??? [id number] - Influenza Vaccine Quad (FLUARIX/FLULAVAL) PF 0.5 [...] of the visit. Lilian Rushing MD, MPH [facility] Infectious Disease Office: [phone] documented in this encounter Plan of Treatment Upcoming Encounters Date Type Specialty Care Team Description 04/14/2022 Office Visit Infectious Disease Lilian Rushing MD [address] [place] [address], [address] [place] [address] (Wo rk) documented as of this encounter Results MR KNEE W WO CONTRAST LEFT (11/27/2021 19:34 EST) Anatomical Region Laterality Modality Lower Extremities Left Magnetic Resonance Specimen Impressions [facility] - 11/27/2021 20:08 EST Similar appearance compared [...] REGARDING THIS REPORT PLEASE CALL [facility] AT [phone] Narrative [facility] - 11/27/2021 20:08 EST PROCEDURE INFORMATION: Exam: [...] REGARDING THIS REPORT PLEASE CALL [facility] AT [phone] Performing Organization Address City/State/ZIP Code Phon e Number [facility] documented in this [...] Last Indicated Resolved Time MRSAComment: Hx of HJIU-Rjax-53/23/2020 08/29/2021 08/29/20 21 C. Stoner 12/31/21 documented as of this encounter Care Teams Chairman & Chief Executive Officer Relationship Specialty Start Date End Date Gil-Marcy Santos, PCP - General Family Medicine - Primary 1 11/13/18 SUPERVISOR CAR INSTALLATIONS Care [address] [place] [phone] documented as of this encounter
--- OUTSIDE RECORDS SUMMARY | 2022-03-17 20:20 | XMS_ITS | Encounter Summary ---
:1965 Author Organization [facility] Address [address] [place] [address] Care Team Providers Name Role Phone Marcy Alvarenga UPHOLSTERY CUTTER Primary Care Provider [phone] Reason for Visit Reason Onset Date Comments Medications Refill 11/06/2021 Encounter Details Date Type Department Care Team Description 11/06/2021 Refill [facility] [place] [facility] Alvarenga Medications Refill Family Medicine - Be nicol Ruiz, UPHOLSTERY CUTTER [address] [facility] [place] [address] [place] [address] [place] [address] [facility] (Wo rk) Social History Tobacco Use [...] Syl Winchester LPN - 11/07/2021 0805 EST [facility] MEDICATION REFILL Medication: tamsulosin Medication, dose, directions [...] Visit Infectious Disease Lilian Rushing MD 130 [facility], [address] [place] [address] (Wo rk) documented as of this encounter Visit Diagnoses Not on filedocumented in this encounter Discontinued Medications Medication Sig Discontinue Reason Start Date End Date TAMSulosin (FLOMAX) 0.4 TAKE 1 CAPSULE BY Reorder 05/01/2021 11/07/2021 mg capsule MOUTH ONCE DAILY documented as of this encounter Additional Health Concerns Infection Onset Date Last Indicated Resolved Time MRSAComment: Hx of MLYV-Ihat-81/23/2020 08/29/2021 08/29/20 21 C. Stoner 12/31/21 documented as of this encounter Care Teams Fruit Raiser Relationship Specialty Start Date End Date Marcy Alvarenga, PCP - General Family Medicine - Primary 1 11/13/18 UPHOLSTERY CUTTER Care [address] [place] [address] [address] [place] [address] documented as of this encounter
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
--- OUTSIDE RECORDS SUMMARY | 2022-03-17 20:20 | XMS_ITS | Encounter Summary ---
:1965 Author Organization [facility] Address [address] [place] [address] Care Team Providers Name Role Phone Marcy Alvarenga FABRICATION OPERATOR Primary Care Provider [phone] Reason for Visit Reason Comments Other Encounter Details Date Type Department Care Team Description 04/30/2021 Refill [facility] Geoff Alvarenga, Other Infectious Disease FABRICATION OPERATOR [address] [place] [address] [address] [place] [phone] (Wo rk) Social History Tobacco Use [...] Visit Infectious Disease Lilian Rushing MD [address] [place] [address] [address] [place], [place] [address] (Wo rk) documented as of this encounter Visit Diagnoses Not on filedocumented in this encounter Discontinued Medications Medication Sig Discontinue Reason Start Date End Date tamsulosin (FLOMAX) 0.4 Take 1 Cap by mouth 04/18/2020 05/01/2021 mg capsule daily. documented as of this encounter Additional Health Concerns Infection Onset Date Last Indicated Resolved Time MRSAComment: Hx of HBNE-Pmqv-81/23/2020 08/29/2021 08/29/20 21 C. Stoner 12/31/21 documented as of this encounter Care Teams Pneumatic Tester Mechanic Relationship Specialty Start Date End Date Gil-Marcy Santos, PCP - General Family Medicine - Primary 1 11/13/18 FABRICATION OPERATOR Care [address] [place] [address] [address] [place] [phone] documented as of this encounter
--- OUTSIDE RECORDS SUMMARY | 2022-03-17 20:20 | XMS_ITS | Encounter Summary ---
:[address] [facility] Address [address] [place] [address] Care Team Providers Name Role Phone Marcy Alvarenga CARTOGRAPHY SUPERVISOR Primary Care Provider [phone] Reason for Visit Reason Onset Date Comments Orders (Non Pre-visit) 09/18/2021 Encounter Details Date Type Department Care Team Description 09/18/2021 Telephone [facility] - Aissatou Iraheta RN Orders (Non Pre-visit) [facility] [place]ious Dise ase [address] [place] [address] [place], [place] [id number] Social History Tobacco Use Types Packs/Day Years [...] Visit Infectious Disease Lilian Rushing MD [address] [place] [address], [address] [place] [address] (Wo rk) documented as of this encounter Results MISCELLANEOUS TEST, [place]MA (10/07/2021 14:01 EST) Miscellaneous Test, SEE NOTE [facility] Comment: LABORATORIES Test ? Result ?Flag ??Unit ?? RefValue Posaconazole, S ?1420 ?ng/mL ??>700 ? ADDITIONAL INFORMATION------- ?This test was developed and its performance jimmie acteristics ?determined by [facility] in a manner consistent with CLIA ?requirements. This test has not been cleared or approved by ?the U.S. Food and Drug Administration. ?Test Performed by: ?[facility] [address] [place] [address] ?Reproductive Healthcare Assistant: Pritesh Mcgee M.D. Ph.D.; CLIA # [id number] Specimen Blood - Venous blood (substance) Performing Organization Address City/State/ZIP Code Phon e Number [facility] [address] [place] [address] documented in this encounter Visit Diagnoses Diagnosis Coccidioidomycosis - Primary Coccidioidomycosis, unspecified Medication monitoring encounter Encounter for therapeutic drug monitorin g documented in this encounter Additional Health Concerns Infection Onset Date Last Indicated Resolved Time MRSAComment: Hx of CFVR-Tbfq-46/23/2020 08/29/2021 08/29/20 21 C. Stoner 12/31/21 documented as of this encounter Care Teams Fibreglass Gun Hand Relationship Specialty Start Date End Date Gil-Marcy Santos, PCP - General Family Medicine - Primary 1 11/13/18 CARTOGRAPHY SUPERVISOR Care [address] [place] [phone] documented as of this encounter
--- OUTSIDE RECORDS SUMMARY | 2022-03-17 20:20 | XMS_ITS | Encounter Summary ---
:1965 Author Organization [facility] Address [address] [place] [address] Care Team Providers Name Role Phone Marcy Alvarenga AUTOMATED CUTTING MACHINE OPERATOR Primary Care Provider [phone] Reason for Visit Reason Onset Date Comments Other 01/22/2021 MRI screening form Encounter Details Date Type Department Care Team Description 01/22/2021 Telephone [facility] - Aissatou Iraheta RN Other (MRI screening [facility] Infectious Dise ase [address] form) [address] [place] [address] [place], [place] [address] Social History Tobacco Use Types Packs/Day Years [...] to [facility]. [facility] [...] Visit Infectious Disease Lilian Rushing MD 130 [facility], [address] [place] [address] (Wo rk) documented as of this encounter Visit Diagnoses Not on filedocumented in this encounter Care Teams Mailroom Coordinator Relationship Specialty Start Date End Date [place]-Marcy Santos, PCP - General Family Medicine - Primary 1 11/13/18 AUTOMATED CUTTING MACHINE OPERATOR Care [address] [phone] documented as of this encounter
--- OUTSIDE RECORDS SUMMARY | 2022-03-17 20:20 | XMS_ITS | Encounter Summary ---
:[address] [facility] Address [address] [place] [address] Care Team Providers Name Role Phone Marcy Alvarenga OPTIMIZATION MANAGER Primary Care Provider [phone] Encounter Details Date Type Department Care Team Description 06/18/2021 Lab Requisition [facility] Outr Resulting Lab, Pathology & Laboratory Provider [facility] [address] [place] [address] Social History Tobacco Use Types Packs/Day Years [...] 130 [facility], [address] [place], [place] [address] (Wo rk) documented as of this encounter Procedures Procedure Name Priority Date/Time Associated Diagnosis Comme nts T CELL SUBSETS Routine 06/18/2021 14:03 EDT Resul ts for this procedure are i n the results section . documented in this encounter Results (ABNORMAL) T CELL SUBSETS (06/18/2021 14:03 EDT) Pathologist Sig nature % CD3 76 56 - 84 % [facility] % CD4 34 31 - 64 % [facility] % CD8 40 (H) 9 - 39 % [facility] Absolute CD3 1,336 840-2,669 Cells/uL [facility] Absolute CD4 591 488-1,734 Cells/uL [facility] Absolute CD8 700 154-1,097 Cells/uL [facility] 4/8 Ratio 0.84 (L) >=0.90 [facility] Specimen Blood - Venous blood (substance) Performing Organization Address City/State/ZIP Code Phon e Number [facility] [address] [place] [address] SERVICES documented in this encounter Visit Diagnoses Not on filedocumented in this encounter Additional Health Concerns Infection Onset Date Last Indicated Resolved Time MRSAComment: Hx of NCIR-Lfjj-52/23/2020 08/29/2021 08/29/20 21 C. Stoner 12/31/21 documented as of this encounter Care Teams Set Up Mechanic Crown Assembly Machine Relationship Specialty Start Date End Date Gil-Marcy Santos, PCP - General Family Medicine - Primary 1 11/13/18 OPTIMIZATION MANAGER Care [address] [facility] [address] [place] [address] documented as of this encounter
--- OUTSIDE RECORDS SUMMARY | 2022-03-17 20:20 | XMS_ITS | Encounter Summary ---
:1965 Author Organization [facility] Address [address] [place] [address] Care Team Providers Name Role Phone Marcy Alvarenga DIRECT SALES PROFESSIONAL Primary Care Provider [phone] Reason for Referral Radiology Services (Routine) - Specialty Report Received Specialty Diagnoses / Procedures Referred By Contact Refer red To Contact Radiology Diagnoses Coccidioidomycosis Lilian Rushing MD Procedures MR KNEE W WO CONTRAST LEFT [address] [facility], [address] [place] [address] Referral ID Status Reason Start Date Expiration Date Visits V isits Requested Authorized [id number] Specialty 05/06/2021 1 1 Report Received Reason for Visit Reason Onset Date Comments Orders (Non Pre-visit) 05/06/2021 Encounter Details Date Type Department Care Team Description 05/06/2021 Telephone [facility] - Aissatou Iraheta RN Orders (Non Pre-visit) [facility] [place] Dise ase [address] [place] [address] [place] [address] Social History Tobacco Use Types [...] Infectious Disease Lilian Rushing MD [address] [facility] [address] [place] [address] (Wo rk) Scheduled Orders Name Type Priority Associated Diagnoses Order S chedule MR KNEE W WO CONTRAST LEFT Imaging Routine Coccidioidomyc osis Ordered: 05/06/2021 documented as of this encounter Visit Diagnoses Diagnosis Coccidioidomycosis - Primary Coccidioidomycosis, unspecified documented in this encounter Care Teams Career Development Facilitator Relationship Specialty Start Date End Date Gil-Marcy Santos, PCP - General Family Medicine - Primary 1 11/13/18 DIRECT SALES PROFESSIONAL Care [address] [place] [address] [address] [place] [phone] documented as of this encounter
--- OUTSIDE RECORDS SUMMARY | 2022-03-17 20:20 | XMS_ITS | Encounter Summary ---
:1965 Author Organization [facility] Address [address] [place] [address] Care Team Providers Name Role Phone Marcy Alvarenga TERRAZZO ROLLER Primary Care Provider [phone] Encounter Details Date Type Department Care Team Description 06/26/2021 Abstract [facility] - [facility] Cht Panel Coord inator, Family Medicine - Be in [facility] [place] [facility] [address], [address] [place] [address] Social History Tobacco Use Types [...] Visit Infectious Disease Lilian Rushing MD [address] [place], [place] [address], [address] [place] [address] (Wo rk) documented as [...] on filedocumented in this encounter Care Teams Audit Clerk Relationship Specialty Start Date End Date Gil-Marcy Santos, PCP - General Family Medicine - Primary 1 11/13/18 TERRAZZO ROLLER Care [address] [place] [address] [address] [place] [phone] documented as of this encounter
--- OUTSIDE RECORDS SUMMARY | 2022-03-17 20:20 | XMS_ITS | Encounter Summary ---
:[address] [facility] Address [address] [place] [address] Care Team Providers Name Role Phone Marcy Alvarenga INSPECTOR SET UP AND LAY OUT Primary Care Provider [phone] Reason for Referral Radiology Services (Routine/Next Available) - Specialty Report Received Specialty Diagnoses / Procedures Referred By Contact Refer red To Contact Diagnoses Chronic pain of left knee Chaitanya Easton MD Procedures XR KNEE LEFT 4 OR MORE VIEWS [address] [place] [address] Referral ID Status Reason Start Date Expiration Date Visits V isits Requested Authorized [id number] Specialty 06/14/2021 1 1 Report Received Reason for Visit Radiology Services (Routine/Next Available) - Specialty Report Received Specialty Diagnoses / Procedures Referred By Contact Refer red To Contact Diagnoses Chronic pain of left knee Chaitanya Easton MD Procedures XR KNEE LEFT 4 OR MORE VIEWS [address] [place] [address] Referral ID Status Reason Start Date Expiration Date Visits V isits Requested Authorized [id number] Specialty 06/14/2021 1 1 Report Received Encounter Details Date Type Department Care Team Description 06/18/2021 Hospital Encounter [facility] Xray Chronic pain of left [address] [place] [address] Social History Tobacco Use Types [...] 3 04/24 mg tablet MOUTH EVERY DAY xkxzbxz-asc-evdde-tenof Take 1 Tablet by 90 Tablet 3 202012/10/2021 ALAFEN (GENVOYA) mouth daily for 90 [phone] mg days. tabletIndications: HIV infection itraconazole (SPORANOX) [...] Office Visit Infectious Disease Lilian Rushing MD [address] [place] [address], [address] [place] [address] (Wo rk) documented as [...] Lower Extremities Left Computed Radiography Specimen Impressions [facility] - 06/18/2021 11:48 EDT FINDINGS / IMPRESSION: * ??Left knee 4 views: Moderate joint ef fusion. Tricompartmental degenerative changes which are moderate to severe. Osteopenia. * ??Right knee 3 views: No significant o steophyte formation. Osteopenia. Narrative [facility] - 06/18/2021 11:48 EDT EXAM/TECHNIQUE: 06/18/2021 9:00 AM ??XR KNEE LEFT 4 OR MORE VIEWS, XR KNEE RIGHT 3 VIEWS 4 (accession [id number]), 3 (accession [id number]) views ?? HISTORY: ??left knee pain COMPARISON: None. Procedure Note Faustino Pereira MD - 06/18/2021 EXAM/TECHNIQUE: 06/18/2021 9:00 AM XR KNE E LEFT 4 OR MORE VIEWS, XR KNEE RIGHT 3 VIEWS 4 (accession [id number]), 3 (accession [id number]) views HISTORY: left knee pain COMPARISON: None. IMPRESSION FINDINGS / IMPRESSION: * Left knee 4 views: Moderate joint effu leigh ann. Tricompartmental degenerative changes which are moderate to severe. Osteopenia. * Right knee 3 views: No significant ost eophyte formation. Osteopenia. Performing Organization Address City/State/ZIP Code Phon e Number [facility] [place] documented in this encounter Visit Diagnoses Diagnosis Chronic pain of left knee Pain in joint, lower leg documented in this encounter Care Teams Foundry Worker Relationship Specialty Start Date End Date Gil-Marcy Santos, PCP - General Family Medicine - Primary 1 11/13/18 INSPECTOR SET UP AND LAY OUT Care [address] [place] [phone] documented as of this encounter
--- OUTSIDE RECORDS SUMMARY | 2022-03-17 20:20 | XMS_ITS | Encounter Summary ---
:1965 Author Organization [facility] Address [address] [place] [address] Care Team Providers Name Role Phone Marcy Alvarenga LAUNDRY EQUIPMENT OPERATOR Primary Care Provider [phone] Encounter Details Date Type Department Care Team Description 02/14/2021 Results Only Imaging [facility] - Lilian Rushing MD [facility] Radiology Resul ts 130 [facility] 130 [facility] [address], [address] [place] [address] [place], [place] [phone] (Wo rk) Social History Tobacco Use [...] Layo - Feng Nguyen RN - 02/14/2021 1746 EDT Message left for patient to call back for results. documented in this encounter Plan of Treatment Upcoming Encounters Date Type Specialty Care Team Description 04/14/2022 Office Visit Infectious Disease Lilian Rushing MD [address] [place] [address], [address] [place], [place] [address] (Wo rk) documented as of this [...] WO CONTRAST (02/14/2021 18:37 EDT) Specimen Narrative [facility] - 02/14/2021 18:37 EDT ? [...] CC: ? Transcribed Date/Time: 02/14/2021 (1837) ? Career And Guidance Counselor: ? Printed Date/Time: 02/14/2021 (18 37) ? PAGE 2 ? Nelly d Report ? Procedure Note Leo Riddle MD - 02/14/2021 EXAM: MAGNETIC RESONANCE IMAGING/LUMBAR S EX. D/ (6028) CLINICAL INFORMATION: B38.9 DISSEMINATED COCCIDIOIDOMYCOSIS PROCEDURE INFORMATION: [...] MD CC: Transcribed Date/Time: 02/14/2021 (1836 ) Career And Guidance Counselor: Printed Date/Time: 02/14/2021 (183) PAGE 2 Signed Report Performing Organization Address City/State/ZIP Code Phon e Number [facility] MR HEAD W WO CONTRAST (02/14/2021 17:48 EDT) Specimen Narrative [facility] - 02/14/2021 17:48 EDT ? [...] CC: ? Transcribed Date/Time: 02/14/2021 (1748) ? Career And Guidance Counselor: HIS.VRAD ? Printed Date/Time: 02/14/2021 (46 48) ? PAGE 1 ? Nelly d [...] Dot Morales MD CC: Transcribed Date/Time: 02/14/2021 (8857 ) Career And Guidance Counselor: Printed Date/Time: 02/14/2021 (1412) PAGE 1 Signed Report Performing Organization Address City/State/ZIP Code Phon e Number [facility] documented in this encounter Visit Diagnoses Not on filedocumented in this encounter Additional Health Concerns Infection Onset Date Last Indicated Resolved Time MRSAComment: Hx of UKWC-Pwqr-74/23/2020 08/29/2021 08/29/20 21 C. Stoner 12/31/21 documented as of this encounter Care Teams Raw Stock Machine Loader Relationship Specialty Start Date End Date Marcy Alvarenga, PCP - General Family Medicine - Primary 1 11/13/18 LAUNDRY EQUIPMENT OPERATOR Care [address] [place] [phone] documented as of this encounter
--- OUTSIDE RECORDS SUMMARY | 2022-03-17 20:20 | XMS_ITS | Encounter Summary ---
:1965 Author Organization [facility] Address [address] [place] [address] Care Team Providers Name Role Phone Marcy Alvarenga DIETETIC INTERN Primary Care Provider [phone] Reason for Visit Reason Onset Date Comments Results 12/05/2020 pos gonorrhea Encounter Details Date Type Department Care Team Description 12/05/2020 Telephone [facility] - Aissatou Iraheta RN Results (pos gonorrhea) [facility] Infectious Dise ase [address] [place] [address] [place], [place] [address] Social History Tobacco Use Types Packs/Day Years [...] 500mg. ??We will need to do a qggq-er-orbs 7-14 days after treatment. documented in this encounter Plan of Treatment Upcoming Encounters Date Type Specialty Care Team Description 04/14/2022 Office Visit Infectious Disease Lilian Rushing MD 130 [facility] [address] [place] [address] (Wo rk) documented as of this encounter Visit Diagnoses Not on filedocumented in this encounter Care Teams Gluing Machine Operator Electronic Relationship Specialty Start Date End Date Gil-Marcy Santos, PCP - General Family Medicine - Primary 1 11/13/18 DIETETIC INTERN Care [address] [place] [phone] documented as of this encounter
--- OUTSIDE RECORDS SUMMARY | 2022-03-17 20:20 | XMS_ITS | Encounter Summary ---
:1965 Author Organization [facility] Address [address] [place] [address] Care Team Providers Name Role Phone Marcy Alvarenga SECURITY ASSURANCE ANALYST Primary Care Provider [phone] Encounter Details Date Type Department Care Team Description 11/26/2020 Results Only [facility] - [facility] Lilian Rushing MD Infectious Disease [address], [address] [place], [place] [phone] [place] [phone] (Wo rk) Social History Tobacco Use Types [...] 130 [facility], [address] [place] [address] (Wo rk) documented as [...] Results (ABNORMAL) IMMUNODEFICIENCY PANEL (11/26/2020 14:07 EST) [facility] % CD3 74 62 - 87 % [facility] % CD4 34 (A) 35 - 63 % [facility] % CD8 36 (A) 10 - 35 % [facility] Absolute CD4 [phone] [facility] Comment: Cells/uL [facility] Test performed or referred by The [address] [address] Specimen Narrative [facility] - 021 20:33 EST Does PT Have a Latex Allergy? NO Performing Organization Address City/State/ZIP Code Phon e Number [facility] [address] [place] [address] HIV 1 RNA QUANTITATION (11/26/2020 14:07 EST) [facility] HIV-1 RNA QUANT - Undetected Undetected [facility] Comment: [facility] INFCE Result Units: copies/mL Result in log copies/mL is Undetected. ADDITIONAL INFORMATION ------ The quantification range of this assay is 20 to 10,000 ,000 copies/mL (1.30 log to 7.00 log copies/mL). Testing wa s performed using the rafael HIV-1 test ([employer] with the rafael 6800 System. This test has been modified from the mixer crane operator's instructions. Its performance characteristics were determined by [facility] in a manner consistent with CLIA requirements. This test has not been cleared or approv ed by the U.S. Food and Drug Administration. Test Performed by: [facility] [address] [place] [address] Fifth Grade Teacher: Pritesh Mcgee M.D. Ph.D.; CLIA# [id number] Specimen Narrative [facility] - 021 20:33 EST Does PT Have a Latex Allergy? NO Performing Organization Address City/State/ZIP Code Phon e Number [facility] [address] [place] [address] URINALYSIS - [facility] (11/26/2020 14:07 EST) URINE APPEARANCE - Clear [facility]AR [facility] URINE BILIRUBIN - Negative NEGATIVE [facility] URINE BLOOD - [facility] Negative NEG [facility] URINE COLOR - [facility] Yellow YELLOW [facility] URINE GLUCOSE - Negative NEGATIVE [facility] URINE KETONE - [facility] Negative NEGATIVE [facility] URINE LEUK ESTERASE Negative NEG [facility] URINE NITRITE - Negative NEG [facility] URINE PH - [facility] 7.0 4.0 - 8.0 [facility] URINE PROTEIN - Negative NEG [facility] URCULTIF+? - [facility] No Culture [facility] IndicatedComment: [facility] CULTURE IS NOT INDICATED, BASED ON RESULTS OF THE URINALYSIS URINE SPECIFIC 1.020 1.001 - 1.035 [facility] GRAVITY - [facility] URINE UROBILINOGEN - 0.2 0.2 - 1.0 [facility] Specimen Narrative [facility] - 021 15:27 EST Does PT Have a Latex Allergy? NO Performing Organization Address City/State/ZIP Code Phon e Number [facility] [address] [place] [address] (ABNORMAL) COMPREHENSIVE METABOLIC PANEL (CMP) (11/26/2020 14:07 EST) ALBUMIN - [facility] 3.8 3.4 - 4.9 [facility] g/dL [facility] ALKALINE 77 38 - 126 U/L [facility]PHATASE [facility] BILIRUBIN TOTAL 0.3 0.2 - 1.3 [facility] mg/dL [facility] BUN - [facility] 21 10 - 26 mg/dL [facility] CALCIUM - [facility] 9.0 8.5 - 10.5 [facility] mg/dL [facility] Chloride 100 96 - 110 [facility] mmol/L [facility] CO2 Total 28 21 - 32 mEq/L [facility] CREATININE 1.04 0.66 - 1.25 [facility] mg/dL [facility] eGFR >60 [facility] Comment: [facility] Chronic renal impairment is defined as GFR <60 Multiply result by 1.210 for patients . Anion Gap 10 0 - 18 [facility] GLUCOSE - [facility] 109 (H) 70 - 100 [facility] mg/dL [facility] Potassium 4.7 3.5 - 5.0 [facility] mEq/L [facility] Sodium 138 136 - 145 [facility] mEq/L [facility] TOTAL PROTEIN - 6.7 6.2 - 8.2 [facility] gm/dL [facility] SGOT/AST - [facility] 20 17 - 59 U/L [facility] SGPT/ALT - [facility] 15 0 - 50 U/L [facility] Specimen Narrative [facility] - 021 15:03 EST Does PT Have a Latex Allergy? NO Performing Organization Address City/State/ZIP Code Phon e Number [facility] [address] [place] [address] (ABNORMAL) COMPLETE BLOOD COUNT WITH DIFFERENTIAL (AUTO) (11/26/2020 14:07 EST) Pathologist Sig nature ABSOLUTE NEUTROPHIL 4.6 2.2 - 8.85 [facility] COUN - [facility] 10e3/uL [facility]ENTER [facility] BASO # - [facility] 0.02 0.01 - 0.11 [facility] 10e/uL [facility] BASO % - [facility] 0 0 - 2 % [facility] EOS # - CV 0.06 0.03 - 0.61 [facility] 10e3/ul [facility] EOS % - [facility] 1 0 - 5 % [facility] GRAN % - [facility] 64.1 40 - 80 % [facility] HEMATOCRIT - [facility] 38.3 (L) 39.5 - 50.2 % [facility] HEMOGLOBIN - [facility] 12.8 (L) 13.8 - 17.3 [facility] g/dl [facility] IG# - [facility] 0.01 0 - 0.7 10e3/uL [facility] IG% - [facility] 0.1 0 - 0.9 % [facility] LYMPH # - CV 1.8 1.09 - 3.3 [facility] 10e3/ul [facility] LYMPH% - [facility] 24.6 20 - 40 % [facility] MEAN CORPUSCULAR HGB 28.3 27.6 - 33.0 pg [facility] ME D - CV [facility] MEAN CORPUSCULAR HGB 33.4 32.8 - 36.4 [facility] CONC - [facility] g/dL [facility] MEAN CELL VOLUME - 84.7 81 - 95 fl [facility] MONO # - [facility] 0.7 0.1 - 0.8 [facility] 10e3/uL [facility] MONO% - CV 10.1 0 - 12 % [facility] PLATELET COUNT 317 141 - 377 [facility] 10e3/ul [facility] RED BLOOD COUNT - 4.52 4.36 - 5.78 [facility] 10e3/ul [facility] RED CELL DISTRI WIDTH 14.4 <14.2 % [facility] WHITE BLOOD COUNT - 7.2 4.0 - 10.4 [facility] 10e3/ul [facility] Specimen Narrative [facility] - 021 14:55 EST Does PT Have a Latex Allergy? NO Performing Organization Address City/State/ZIP Code Phon e Number [facility] [address] [place] [address] documented in this encounter Visit Diagnoses Not on filedocumented in this encounter Care Teams Counter Intelligence Agent Relationship Specialty Start Date End Date Gil-Marcy Santos, PCP - General Family Medicine - Primary 1 11/13/18 SECURITY ASSURANCE ANALYST Care [address] [place] [phone] documented as of this encounter
--- OUTSIDE RECORDS SUMMARY | 2022-03-17 20:20 | XMS_ITS | Encounter Summary ---
:1965 Author Organization [facility] Address [address] [place] [address] Care Team Providers Name Role Phone Marcy Alvarenga CAR SHAKEOUT OPERATOR Primary Care Provider [phone] Encounter Details Date Type Department Care Team Description 02/01/2021 Results Only [facility] - Reginaldo Laura MD Imaging [facility] Radiology Resul [address] [place], [place] [address] [place] [address] [phone] (Wo rk) Social History Tobacco Use Types [...] MD 130 [facility], [address] [place] [address] (Wo rk) documented as [...] were directly comm unicated to Dr. Laura' bilingual medical assistant, ? Lalita Guerra on 02/01/2021 at 3:46 PM . ? REPORT SIGNED IN OTHER VENDOR SYSTEM 02/01/2021 ?Reported B y: Artur Coley MD ? CC: ? Transcribed Date/Time: 02/01/2021 (7463) ? Porcelain Enamel Laborer: ? Printed Date/Time: 02/01/2021 (15 62) ? PAGE 2 ? Nelly d Report [...] were directly communicat ed to Dr. Laura' bilingual medical assistant, Lalita Guerra on 02/01/2021 at 3:46 PM. REPORT SIGNED IN OTHER VENDOR SYSTEM 02/01/2021 Reported By: Artur Coley MD CC: Transcribed Date/Time: 02/01/2021 (5324 ) Porcelain Enamel Laborer: Printed Date/Time: 02/01/2021 (5887) PAGE 2 Signed Report Performing Organization Address City/State/ZIP Code Phon e Number RADIOLOGY documented in this encounter Visit Diagnoses Not on filedocumented in this encounter Additional Health Concerns Infection Onset Date Last Indicated Resolved Time MRSAComment: Hx of [id number]-Bbzg-52/23/2020 08/29/2021 08/29/20 21 C. Stoner 12/31/21 documented as of this encounter Care Teams Recreational Director Relationship Specialty Start Date End Date Gil-Marcy Santos, PCP - General Family Medicine - Primary 1 11/13/18 CAR SHAKEOUT OPERATOR Care [address] [place] [phone] documented as of this encounter
--- OUTSIDE RECORDS SUMMARY | 2022-03-17 20:20 | XMS_ITS | Encounter Summary ---
:[address] [facility] Address [address] [place] [address] Care Team Providers Name Role Phone Marcy Alvarenga WELDING MACHINE OPERATOR GAS Primary Care Provider [phone] Reason for Visit Reason Comments Other Encounter Details Date Type Department Care Team Description 11/26/2021 Refill [facility] Lilian Rushing MD Other Infectious Disease 130 [facility] 130 [facility] [address], [address] [place], [place] [address] [place] [phone] (Wo rk) Social History Tobacco Use [...] Unable to edit the [facility] rx from [facility] pharmacy. Will send new rx for 90 days documented in this encounter Plan of Treatment Upcoming Encounters Date Type Specialty Care Team Description 04/14/2022 Office Visit Infectious Disease Lilian Rushing MD [address] [place] [address] [address] [place] [address] (Wo rk) documented as [...] Last Indicated Resolved Time MRSAComment: Hx of DJHG-Valb-71/23/2020 08/29/2021 08/29/20 21 C. Stoner 12/31/21 documented as of this encounter Care Teams Paint Mixer Hand Relationship Specialty Start Date End Date Gil-Marcy Santos, PCP - General Family Medicine - Primary 1 11/13/18 WELDING MACHINE OPERATOR GAS Care [address] [place] [address] [address] [place] [phone] documented as of this encounter
--- OUTSIDE RECORDS SUMMARY | 2022-03-17 20:20 | XMS_ITS | Encounter Summary ---
:1965 Author Organization [facility] Address [address] [place] [address] Care Team Providers Name Role Phone Marcy Alvarenga EXECUTIVE PILOT Primary Care Provider [phone] Encounter Details Date Type Department Care Team [...] Visit Infectious Disease Lilian Rushing MD 130 [facility], [address] [place] [address] (Wo rk) documented as of this encounter Visit Diagnoses Not on filedocumented in this encounter Care Teams Hiv Nurse Relationship Specialty Start Date End Date Gil-Marcy Santos, PCP - General Family Medicine - Primary 1 11/13/18 EXECUTIVE PILOT Care [address] [place] [address] [address] [place] [phone] documented as of this encounter
--- OUTSIDE RECORDS SUMMARY | 2022-03-17 20:20 | XMS_ITS | Encounter Summary ---
:[address] [facility] Address [address] [place] [address] Care Team Providers Name Role Phone Marcy Alvarenga ACTING TEACHER Primary Care Provider [phone] Reason for Referral Radiology Services (Routine/Next Available) - Specialty Report Received Specialty Diagnoses / Procedures Referred By Contact Refer red To Contact Diagnoses Chronic pain of left knee Chaitanya Easton MD Procedures XR KNEE RIGHT 3 VIEWS [address] [place] [address] Referral ID Status Reason Start Date Expiration Date Visits V isits Requested Authorized [id number] Specialty 06/14/2021 1 1 Report Received adiology Services (Routine/Next Available) - Specialty Report Received Specialty Diagnoses / Procedures Referred By Contact Refer red To Contact Diagnoses Chronic pain of left knee Chaitanya Easton MD Procedures XR KNEE LEFT 4 OR MORE VIEWS [address] [place] [address] Referral ID Status Reason Start Date Expiration Date Visits V isits Requested Authorized [id number] Specialty 06/14/2021 1 1 Report Received Reason for Visit Reason Onset Date Comments Knee Pain 06/13/2021 Encounter Details Date Type Department Care Team Description 06/13/2021 Orders Only [facility] Easton ain of left Total Joint Program - Frankie Tavares knee (Primary Dx) [address] [place]as[place], So [facility] [id number] [phone] Social History Tobacco Use Types Packs/Day Years [...] Visit Infectious Disease Lilian Rushing MD [address] [place] [address], [address] [place] [address] (Wo rk) documented as of this encounter Results XR KNEE RIGHT 3 VIEWS (06/18/2021 9:30 EDT) Anatomical Region Laterality Modality Lower Extremities Right Computed Radiography Specimen Impressions [facility] - 06/18/2021 11:48 EDT FINDINGS / IMPRESSION: * ??Left knee 4 views: Moderate joint ef fusion. Tricompartmental degenerative changes which are moderate to severe. Osteopenia. * ??Right knee 3 views: No significant o steophyte formation. Osteopenia. Narrative [facility] - 06/18/2021 11:48 EDT EXAM/TECHNIQUE: 06/18/2021 9:00 AM ??XR KNEE LEFT 4 OR MORE VIEWS, XR KNEE RIGHT 3 VIEWS 4 (accession [id number]), 3 (accession [id number]) views ?? HISTORY: ??left knee pain COMPARISON: None. Procedure Note Faustino Pereira MD - 06/18/2021 EXAM/TECHNIQUE: 06/18/2021 9:00 AM XR KNE E LEFT 4 OR MORE VIEWS, XR KNEE RIGHT 3 VIEWS 4 (accession [id number]), 3 (accession [id number]) views HISTORY: left knee pain COMPARISON: None. IMPRESSION FINDINGS / IMPRESSION: * Left knee 4 views: Moderate joint effu leigh ann. Tricompartmental degenerative changes which are moderate to severe. Osteopenia. * Right knee 3 views: No significant ost eophyte formation. Osteopenia. Performing Organization Address City/State/ZIP Code Phon e Number [facility] [place] XR KNEE LEFT 4 OR MORE VIEWS (06/18/2021 9:29 EDT) Anatomical Region Laterality Modality Lower Extremities Left Computed Radiography Specimen Impressions [facility] [place] - 06/18/2021 11:48 EDT FINDINGS / IMPRESSION: * ??Left knee 4 views: Moderate joint ef fusion. Tricompartmental degenerative changes which are moderate to severe. Osteopenia. * ??Right knee 3 views: No significant o steophyte formation. Osteopenia. Narrative [facility] - 06/18/2021 11:48 EDT EXAM/TECHNIQUE: 06/18/2021 9:00 AM ??XR KNEE LEFT 4 OR MORE VIEWS, XR KNEE RIGHT 3 VIEWS 4 (accession [id number]), 3 (accession [id number]) views ?? HISTORY: ??left knee pain COMPARISON: None. Procedure Note Faustino Pereira MD - 06/18/2021 EXAM/TECHNIQUE: 06/18/2021 9:00 AM XR KNE E LEFT 4 OR MORE VIEWS, XR KNEE RIGHT 3 VIEWS 4 (accession [id number]), 3 (accession [id number]) views HISTORY: left knee pain COMPARISON: None. IMPRESSION FINDINGS / IMPRESSION: * Left knee 4 views: Moderate joint effu leigh ann. Tricompartmental degenerative changes which are moderate to severe. Osteopenia. * Right knee 3 views: No significant ost eophyte formation. Osteopenia. Performing Organization Address City/State/ZIP Code Phon e Number [facility] documented in this encounter Visit Diagnoses Diagnosis Chronic pain of left knee - Primary Pain in joint, lower leg Chronic pain of left knee Pain in joint, lower leg Chronic pain of left knee Pain in joint, lower leg documented in this encounter Care Teams Unified Communications Architect Relationship Specialty Start Date End Date Gil-Marcy Santos, PCP - General Family Medicine - Primary 1 11/13/18 ACTING TEACHER Care [address] [place] [phone] documented as of this encounter
--- OUTSIDE RECORDS SUMMARY | 2022-03-17 20:20 | XMS_ITS | Encounter Summary ---
:1965 Author Organization Health system Address [address] [place] [address] Care Team Providers Name Role Phone Marcy Alvarenga TRAFFIC SURVEY TECHNICIAN Primary Care Provider [phone] Encounter Details Date Type Department Care Team Description 12/24/2020 Lab Requisition [facility] Outr Resulting Lab, Pathology & Laboratory Provider [facility] [address] [id number] Social History Tobacco Use Types Packs/Day Years [...] Visit Infectious Disease Lilian Rushing MD [address] [place] [address], [address] [place] [address] (Wo rk) documented as of this [...] 11:05 EST) Culture Referred SEE NOTE (A) [facility] for ID, Fungus Comment: LABORATORIES SOURCE: KNEE, Knee fluid CULTURE REFERRED FOR ID, FUNGUS ?FINAL ??COCCIDIOIDES POSADASII/IMMITIS ?? Critical Result. Test Performed by: [facility] - [address] [address] Brand Advocate: Pritesh Mcgee M.D. Ph.D.; CLIA# [id number] Specimen Organism Performing Organization Address City/[facility] Code Phon e Number [facility] [address] [place] [phone] (ABNORMAL) FUNGUS CULTURE/SMEAR (12/24/2020 11:05 EST) Pathologist Sig nature Organism ID Few Coccidiodes [facility] Immitis/Posadasii LABORATORY SERVICES (A)Comment: Assayed by [facility], [place], [place] Fungal Smear No Fungi Seen [facility] Specimen Fluid - Entire knee region (body structu re) Performing Organization Address City/[facility]/ZIP Code Phon e Number [facility] [address] [place] [address] SERVICES documented in this encounter Visit Diagnoses Not on filedocumented in this encounter Additional Health Concerns Infection Onset Date Last Indicated Resolved Time MRSAComment: Hx of SJHQ-Eilw-89/23/2020 08/29/202108/29/20 21 Jonh Payne 12/31/21 documented as of this encounter Care Teams Windows Systems Engineer Relationship Specialty Start Date End Date Gil-Marcy Santos, PCP - General Family Medicine - Primary 1 11/13/18 TRAFFIC SURVEY TECHNICIAN Care [address] [place] [phone] documented as of this encounter
--- OUTSIDE RECORDS SUMMARY | 2022-03-17 20:20 | XMS_ITS | Encounter Summary ---
:1965 Author Organization [facility] Address [address] [place] [address] Care Team Providers Name Role Phone Marcy Alvarenga STAFF RESEARCH ASSOCIATE Primary Care Provider Reason for Visit Reason Onset Date Comments Prior Auth, Medication 08/06/2021 Encounter Details Date Type Department Care Team Description 08/06/2021 Telephone [facility] - Lilian Rushing Pri or Auth, Medication [facility] [place] [address] [place] [address] [place]-, [place] [address] Social History Tobacco Use Types [...] out for 4 days already. Ramirez in [place]. documented in this encounter Plan of Treatment Upcoming Encounters Date Type Specialty Care Team Description 04/14/2022 Office Visit Infectious Disease Lilian Rushing MD [address] [facility] [address] [place] [address] (Wo rk) documented as of this encounter Visit Diagnoses Not on filedocumented in this encounter Care Teams Promotions Executive Relationship Specialty Start Date End Date Gil-Marcy Santos, PCP - General Family Medicine - Primary 1 11/13/18 STAFF RESEARCH ASSOCIATE Care [address] [place] [address] [address] [place] [address] documented as of this encounter
--- OUTSIDE RECORDS SUMMARY | 2022-03-17 20:20 | XMS_ITS | Encounter Summary ---
:1965 Author Organization [facility] Address [address] [place] [address] Care Team Providers Name Role Phone Marcy Alvarenga SCHOOL BOAT DRIVER Primary Care Provider [phone] Reason for Visit Reason Comments Follow-up HIV, Coccidioidomycosis Encounter Details Date Type Department Care Team Description 06/18/2021 Office Visit Health system - Lilian Rushing Asy mptomatic HIV infection ([facility]) (Primary Dx); [facility] Infectious MD Coccidioidomycosis; Disease [address] Arthritis of left knee; [address], [address] Screening for diabetes mellitus; [place] [address] [place] Medication monitoring encoun ter; [phone]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 tabletIndications: HIV infection documented in this encounter Progress Notes Aissatou Morales RN - 06/18/2021 1300 EDT Patient properly identified by name and . Blood drawn via butterfly needle from R [facility] perprotocol. DSD applied. [place] x2, red and purple x4 tube(s) sent to the lab per order. Patient tolerated the procedure well AISSATOU MORALES RN 06/18/2021 14:33 [facility] Infectious Disease Lilian Merino MD - 06/18/2021 [...] visit, I spoke to Dr. Laura at [facility] and we discussed referral to [facility] Ortho for continued management of the knee given the complexities and that he will likely eventually need a TKA. I also spoke to the [facility] in [place]. They recommended treating with antifungals and repeating [...] or rashes. He drove his parents to [place] for a wedding recently - says that's [...] but lost the card. Advised to call [facility] for replacement card and then callus to [...] A1c ??? Itraconazole, S ??? Miscellaneous Test, [place] ??? Miscellaneous Test, [facility] Orders Placed This Visit and Additions to the Medication List Medications ??? ncvpzof-gsn-wploe-tenof ALAFEN (GENVOYA) [phone] mg tablet Sig: Take 1 Tablet by [...] of the visit. Lilian Rushing MD, MPH [facility] Infectious Disease Office: [phone] Cc: PCP, Dr. Easton at [facility] documented in this encounter Plan of Treatment Upcoming Encounters Date Type Specialty Care Team Description 04/14/2022 Office Visit Infectious Disease Lilian Rushing MD [address] [place] [address], [address] [place] [address] (Wo rk) Scheduled Orders Name Type Priority Associated Diagnoses Order S chedule COMPLETE BLOOD COUNT Lab Routine Asymptomatic HIV inf ection Ordered: AND DIFFERENTIAL ([facility]) 06/18/2021 Coccidioidomycosis HIV 1 RNA Lab Routine Asymptomatic HIV infection O rdered: QUANTITATION ([facility]) 06/18/2021 SYPHILIS SEROLOGY Lab Routine Asymptomatic HIV infect ion Ordered: ([facility]) 06/18/2021 URINE SEDIMENT Lab Routine Asymptomatic HIV infection Ordered: (MICRO) WITH REFLEX ([facility]) 06/18/20 21 TO CULTURE ITRACONAZOLE, S Lab Routine Coccidioidomycosis Ordere d: 06/18/2021 MISCELLANEOUS TEST, Lab Routine Asymptomatic HIV infe ction Ordered: MULBERRY GROVE ([facility]) 06/18/2021 Arthritis of left knee MISCELLANEOUS TEST, Lab Routine Coccidioidomycosis Or dered: MULBERRY GROVE 06/18/2021 N. GONORRHOEAE AND Microbiology Routine Gonorrhea of pharynx O rdered: CHLAMYDIA 06/18/2021 TRACHOMATIS, MISC SITES, AMPLIFIED RNA documented as of this encounter Procedures Procedure Name Priority Date/Time Associated Comments Diagnosis URINALYSIS - [facility] Routine 06/18/2021 14:20 Asymptomatic HIV Re sults for this EDT infection ([facility]) procedur e are in the results section. MISCELLANEOUS TEST, MULBERRY GROVE Routine 06/18/2021 14:20 Asymptomatic HIV Results for this EDT infection ([facility]) procedur e are in the results section. IMMUNODEFICIENCY PANEL - Routine 06/18/2021 14:03 Asymptomatic HIV Results for this INTERIM EDT infection ([facility]) procedur e are in the results section. COMPLETE BLOOD COUNT Routine 06/18/2021 14:03 Asymptomatic HIV Results for this WITH DIFFERENTIAL (AUTO) EDT infection ([facility]) procedure are in the results section. RAPID PLASMA REAGIN Routine 06/18/2021 14:03 Asymptomatic HIV Results for this (RPR) WITH REFLEX, S EDT infection ([facility]) procedure are in the results section. MISCELLANEOUS TEST, MULBERRY GROVE Routine 06/18/2021 14:03 Asymptomatic HIV Results for this EDT infection ([facility]) procedur e are in the results section. MISCELLANEOUS TEST, MULBERRY GROVE Routine 06/18/2021 14:03 Asymptomatic HIV Results for this EDT infection ([facility]) procedur e are in the results [...] documented in this encounter Results MISCELLANEOUS TEST, MULBERRY GROVE (06/18/2021 14:20 EDT) [facility] MISCELLANEOUS TEST - SEE BELOW () [facility] Comment: [facility] Test ? Result ?? Flag [...] due to specimen source. Test Performed by: [address] [address] Superintendent Quarry: Pritesh Mcgee M.D. Ph.D.; CLIA# [id number] ? Test ? Result ?? Flag ??Unit [...] use in medical-legal applications. Test Performed by: [facility] [employer] - [address] [address] Superintendent Quarry: Pritesh Mcgee M.D. Ph.D.; CLIA# [id number] CONTAINS ADDITIONAL TEST RESULTS Specimen Performing Organization Address City/State/ZIP Code Phon e Number [facility] [address] [place] [address] URINALYSIS - [facility] (06/18/2021 14:20 EDT) URINE APPEARANCE - Clear CLEAR [facility] URINE BILIRUBIN - Negative NEGATIVE [facility] DIPSTICK - [facility] URINE BLOOD - [facility] Negative NEG [facility] URINE COLOR - [facility] Yellow YELLOW [facility] URINE GLUCOSE - Negative NEGATIVE [facility] DIPSTICK [facility] URINE KETONE - [facility] Negative NEGATIVE [facility] URINE LEUK ESTERASE Negative NEG [facility] URINE NITRITE - Negative NEG [facility] DIPSTICK [facility] URINE PH - [facility] 7.5 4.0 - 8.0 [facility] URINE PROTEIN - Negative NEG [facility] URCULTIF+? - [facility] No Culture [facility] IndicatedComment: [facility] CULTURE IS NOT INDICATED, BASED ON RESULTS OF THE URINALYSIS URINE SPECIFIC 1.015 1.001 - 1.035 [facility] GRAVITY [facility] URINE UROBILINOGEN - 0.2 0.2 - [address] [facility] DIPSTICK [facility] Specimen Performing Organization Address City/State/ZIP Code Phon e Number [facility] [address] [place] [address] MISCELLANEOUS TEST, MULBERRY GROVE (06/18/2021 14:03 EDT) Pathologist [facility] MISCELLANEOUS TEST - SEE BELOW () [facility] Comment: [facility] Coccidioides Ab Screen w/Reflex, S ??Coccidioides Ab Screen: ?Reactive ? Confirmatory testing by complement fixation and immunodiffusion has been ordered. ADDITIONAL INFORMATION ------ This test has been modified from the emergency response coordinator's instructions. Its performance characteristics were determined by [facility] in a manner consistent with CLIA [...] (e.g., dayday al culture) Test Performed by: [place] [address] Superintendent Quarry: Pritesh Mcgee M.D. Ph.D.; IA# [id number] 06/25/21 1128: ??Amended Report ??MISC TEST previously reported as: SEE BELOW ? Specimen Performing Organization Address City/State/ZIP Code Phon e Number [facility] [address] [place] [address] MISCELLANEOUS TEST, MULBERRY GROVE (06/18/2021 14:03 EDT) [facility] MISCELLANEOUS TEST - SEE BELOW () [facility] Comment: [facility] Test ?Result ?Flag ??Unit ?RefValue ------ Itraconazole, S ? 2.5 ? mcg/mL ? REFERENCE VALUE ------ >0.5 (localized infection), >1.0 (systemic infection) ??Hydroxyitraconazole ? 2.1 ? mcg/mL ? REFERENCE VALUE ------ No therapeutic range established; activity and serum concentration are similar to parent drug. ADDITIONAL INFORMATION ------ This test was developed and its performance characteri stics determined by [facility] in a manner consistent with CLIA requirements. This test has not been cleared or approv ed by the U.S. Food and Drug Administration. Test Performed by: [facility] [place] [address] Superintendent Quarry: Pritesh Mcgee M.D. Ph.D.; CLIA# [id number] Specimen Performing Organization Address [facility] Phon e Number [facility] [address] [place] [address] (ABNORMAL) IMMUNODEFICIENCY PANEL - INTERIM (06/18/2021 14:03 EDT) 4/8 RATIO 0.84 (A) >=0.90 [facility] Comment: [facility] Test performed or referred by The [address] [address] CD3 76 56 - 84 % [facility] CD4 34 31 - 64 % [facility] CD8 - [facility] 40 (A) 9 - 39 % [facility] ABSOLUTE CD3 1336 840-2,669 [facility] Cells/uL [facility] ABSOLUTE CD4 591 488-1,[address]34 [facility] Cells/uL [facility] TOTCD8 700 154-1,097 [facility] Cells/uL [facility] Specimen Performing Organization Address City/[facility] Phon e Number [facility] [address] [place] [address] HIV 1 RNA QUANTITATION (06/18/2021 14:03 EDT) Pathologist [facility] HIV-1 RNA QUANT - Undetected Undetected [facility] Comment: [facility] INFCE Result Units: copies/mL Result in log copies/mL is Undetected. ADDITIONAL INFORMATION ------ The quantification range of this assay is 20 to 10,000 ,000 copies/mL (1.30 log to 7.00 log copies/mL). Testing wa s performed using the rafael HIV-1 test ([employer] with the rafael [employer] System. This test has been modified from the emergency response coordinator's instructions. Its performance characteristics were determined by [facility] in a manner consistent with CLIA requirements. This test has not been cleared or approv ed by the U.S. Food and Drug Administration. Test Performed by: [place] [address] Superintendent Quarry: Pritesh Mcgee M.D. Ph.D.; CLIA# [id number] Specimen Performing Organization Address City/[facility]/ZIP Code Phon e Number [facility] [address] [place] [address] RAPID PLASMA REAGIN (RPR) WITH REFLEX, S (06/18/2021 14:03 EDT) Pathologist [facility] APID PLASMA REAGIN - Nonreactive NEG [facility] Specimen Performing Organization Address City/[facility]/ZIP Code Phon e Number [facility] [address] [place] [address] (ABNORMAL) COMPLETE BLOOD COUNT WITH DIFFERENTIAL (AUTO) (06/18/2021 14:03 EDT) Pathologist [facility] ABSOLUTE NEUTROPHIL 5.0 2.2 - 8.85 [facility] COUN - [facility] 10e3/uL CENTER LAB BASO # - [facility] 0.02 0.01 - 0.11 [facility] 10e/uL [facility] BASO % - [facility] 0 0 - 2 % [facility] EOS # - [facility] 0.10 0.03 - 0.61 [facility] 10e3/ul [facility]ENTER [facility] EOS % - [facility] 1 0 - 5 % [facility] GRAN % - [facility] 64.0 40 - 80 % [facility] HEMATOCRIT - [facility] 35.5 (L) 39.5 - 50.2 % [facility] HEMOGLOBIN - [facility] 11.8 (L) 13.8 - 17.3 [facility] g/dl CENTER LAB IG# - [facility] 0.04 0 - 0.7 10e3/uL [facility] IG% - [facility] 0.5 0 - 0.9 % [facility] LYMPH # - [facility] 1.8 1.09 - 3.3 [facility] 10e3/ul [place] [facility] LYMPH% - [facility] 22.7 20 - 40 % [facility] MEAN CORPUSCULAR HGB 28.5 27.6 - 33.[address] [facility] ME D - [facility] CENTER LAB MEAN CORPUSCULAR HGB 33.2 32.8 - 36.4 [facility] CONC - [facility] g/dL CENTER LAB MEAN CELL VOLUME - 85.7 81 - 95 fl [facility] MONO # - [facility] 0.9 (H) 0.1 - 0.8 [facility] 10e3/uL [place] [facility] MONO% - [facility] 11.2 0 - 12 % [facility] PLATELET COUNT 294 141 - 377 [facility] 10e3/ul [place] [facility] RED BLOOD COUNT - 4.14 (L) 4.36 - 5.78 [facility] 10e6/ul [place] [facility] RED CELL DISTRI WIDTH 14.7 <14.2 % [facility] WHITE BLOOD COUNT - 7.7 4.0 - 10.4 [facility] 10e3/ul [place] [facility] Specimen Performing Organization Address City/State/ZIP Code Phon e Number [facility] [address] [place] [address] HEMOGLOBIN A1C (06/18/2021 14:03 EDT) Hemoglobin A1c 5.6 4.0 - 6.0 % [facility] Comment: [facility] > or =18 years: ??Increased risk for diabetes (prediabetes): 5.7-6.4% Diabetes: > or =6.5% Therapeutic goals for glycemic control (ADA) Adults: - Goal of therapy: <7.0% HbA1c - Action suggested: >8.0% HbA1c Pediatric patients: - Toddlers and preschoolers: <8.5% (but >7.5%) - School age (6-12 years): <8% - Adolescents and young adults (13-19 years): <7.5% Est Avg Glucose 114 mg/dL [facility] Specimen Blood - Venous blood (substance) Performing Organization Address [facility] Phon e Number [facility] [place] [facility] [address] [place] [address] (ABNORMAL) LIPID PROFILE (INCLUDES CHOLESTEROL, TRIGLYCERIDES, HDL, LDL) (06/18/2021 14:03 EDT) Triglyceride 50 <150 mg/dL [facility] Comment: [facility] Adult: Normal: ?<150 mg/dl ? Borderline High: 150-199 mg/dl ? High: ?200-499 mg/dl ? Very High: >yn=518 Cholesterol 123 <200 mg/dL [facility] Comment: [facility] Acceptable: ??<200 Borderline: ??200-239 High: ?> or = 240 Chol/HDL Ratio 1.8 0 - 5.0 [facility] Comment: [facility] DESIRABLE RATIO IS LESS THAN 4.1 PATIENTS ARE CONSIDERED AT RISK: WOMEN RATIO >5 MEN RATIO >6 FASTING? - [facility] Unknown [facility] HDL 65 (H) 40 - 60 mg/dL [facility] Comment: [facility] ?? Reference Range Low: ? < 40 ??mg/dL Normal: ??40-60 mg/dL High: ?>= 60 mg/dL LDL CHOLESTEROL - 48 (L) 60 - 100 [facility] mg/dL [facility] Non HDL Cholesterol 58 mg/dl [facility] Comment: [facility] Desirable: ?Less than 130 Borderline High: ??130-159 High: ? 160-189 Very High: ?Greater than or equal to 190 Specimen Blood - Venous blood (substance) Performing Organization Address [facility] Phon e Number [facility] [address] [place] [address] COMPREHENSIVE METABOLIC PANEL (CMP) (06/18/2021 14:03 EDT) ALBUMIN - [facility] 3.7 3.4 - 4.9 [facility] g/dL [facility] ALKALINE 83 38 - 126 U/L [facility] PHOSPHATASE - [facility] BILIRUBIN TOTAL 0.3 0.2 - 1.3 [facility] mg/dL [facility] BUN - [facility] 19 10 - 26 mg/dL [facility] CALCIUM - [facility] 8.7 8.5 - 10.5 [facility] mg/dL [facility] Chloride 102 96 - [address] [facility] mmol/L [facility] CO2 Total 28 21 - 32 mEq/L [facility] CREATININE 0.81 0.66 - 1.25 [facility] mg/dL [facility] eGFR >60 [facility] Comment: [facility] Chronic renal impairment is defined as GFR <60 Multiply result by 1.210 for patients . Anion Gap 9 0 - 18 [facility] GLUCOSE - [facility] 91 70 - [address] [facility] mg/dL [facility] Potassium 4.0 3.5 - 5.0 [facility] mEq/L [facility] Sodium 139 136 - [address] [facility] mEq/L [facility] TOTAL PROTEIN - 6.6 6.2 - 8.2 [facility] gm/dL [facility] SGOT/AST - [facility] 30 17 - 59 U/L [facility] SGPT/ALT - [facility] 27 0 - 50 U/L [facility] Specimen Blood - Venous blood (substance) Performing Organization Address City/State/ZIP Code Phon e Number [facility] [address] [place] [address] documented in this encounter Visit Diagnoses Diagnosis Asymptomatic HIV infection (HCC) - Prima ry Asymptomatic human immunodeficiency viru s (HIV) infection status Coccidioidomycosis Coccidioidomycosis, unspecified Arthritis of left knee Unspecified arthropathy, lower leg Screening for diabetes mellitus Medication monitoring encounter Encounter for therapeutic drug monitorin g [facility] (current) use of antibiotics Gonorrhea of pharynx Gonococcal infection of pharynx documented in this encounter Discontinued Medications Medication Sig Discontinue Reason Start Date End Date gcmedlg-fct-rplce-tenof Take 1 Tab by mouth Reorder 12/03/2020 06/18/2021 ALAFEN (GENVOYA) daily for 90 days. [phone] mg tabletIndications: HIV infection documented as of this encounter Care Teams Product Advisor Relationship Specialty Start Date End Date Marcy Alvarenga, PCP - General Family Medicine - Primary 1 11/13/18 SCHOOL BOAT DRIVER Care [address] [place] [phone] documented as of this encounter
--- OUTSIDE RECORDS SUMMARY | 2022-03-17 20:20 | XMS_ITS | Encounter Summary ---
:1965 Author Organization [facility] Address [address] [place] [address] Care Team Providers Name Role Phone Marcy Alvarenga REWINDER OPERATOR HELPER Primary Care Provider [phone] Reason for Visit Reason Onset Date Comments Labs Only 02/14/2021 Pt called regarding lab orders that JL was to place Encounter Details Date Type Department Care Team Description 02/14/2021 Telephone [facility] - Lilian Rushing, Lab s Only (Pt called [facility] Infectious Dise ase regarding lab orders [address] that JL was [place] place) [place] [address] [facility] [place] [address] Social History Tobacco Use Types [...] Office Visit Infectious Disease Lilian Rushing MD [address] [place] [address], [address] [place] [address] (Wo rk) documented as of this encounter Visit Diagnoses Diagnosis Coccidioidomycosis - Primary Coccidioidomycosis, unspecified documented in this encounter Care Teams Gift Consultant Relationship Specialty Start Date End Date Marcy Alvarenga, PCP - General Family Medicine - Primary 1 11/13/18 REWINDER OPERATOR HELPER Care [address] [place] [phone] documented as of this encounter
--- OUTSIDE RECORDS SUMMARY | 2022-03-17 20:20 | XMS_ITS | Encounter Summary ---
:1965 Author Organization [facility] Address [address] [place] [address] Care Team Providers Name Role Phone Marcy Alvarenga RENTAL REPRESENTATIVE Primary Care Provider [phone] Encounter Details Date Type Department Care Team [...] Visit Infectious Disease Lilian Rushing MD [address] [facility], [address] [place] [address] (Wo rk) documented as of this encounter Visit Diagnoses Not on filedocumented in this encounter Care Teams Fagot Heater Helper Relationship Specialty Start Date End Date Gil-Marcy Santos, PCP - General Family Medicine - Primary 1 11/13/18 RENTAL REPRESENTATIVE Care [address] [facility] [address] [place] [address] documented as of this encounter
--- OUTSIDE RECORDS SUMMARY | 2022-03-17 20:20 | XMS_ITS | Encounter Summary ---
:1965 Author Organization [facility] Address [address] [place] [address] Care Team Providers Name Role Phone Marcy Alvarenga CLINICAL REHABILITATION COORDINATOR Primary Care Provider [phone] Reason for Referral Radiology Services (Routine/Next Available) - Specialty Report Received Specialty Diagnoses / Procedures Referred By Contact Refer red To Contact Diagnoses Chronic pain of left knee Chaitanya [place] MD Procedures XR KNEE RIGHT 3 VIEWS [address] [place] [address] Referral ID Status Reason Start Date Expiration Date Visits V isits Requested Authorized [id number] Specialty 06/14/2021 1 1 Report Received Reason for Visit Radiology Services (Routine/Next Available) - Specialty Report Received Specialty Diagnoses / Procedures Referred By Contact Refer red To Contact Diagnoses Chronic pain of left knee Chaitanya [place] MD Procedures XR KNEE RIGHT 3 VIEWS [address] [place] [address] Referral ID Status Reason Start Date Expiration Date Visits V isits Requested Authorized [id number] Specialty 06/14/2021 1 1 Report Received Encounter Details Date Type Department Care Team Description 06/18/[address] [facility] Xray Chronic pain of left [address] [place] [address] Social History Tobacco Use Types Packs/Day Years [...] Visit Infectious Disease Lilian Rushing MD [address] [place] [address], [address] [place] [address] (Wo rk) documented [...] Lower Extremities Right Computed Radiography Specimen Impressions [facility] [place] - 06/18/2021 11:48 EDT FINDINGS / IMPRESSION: * ??Left knee 4 views: Moderate joint ef fusion. Tricompartmental degenerative changes which are moderate to severe. Osteopenia. * ??Right knee 3 views: No significant o steophyte formation. Osteopenia. Narrative [facility] - 06/18/2021 11:48 EDT EXAM/TECHNIQUE: 06/18/2021 9:00 AM ??XR KNEE LEFT 4 OR MORE VIEWS, XR KNEE RIGHT 3 VIEWS 4 (accession [id number]), 3 (accession [id number]) views ?? HISTORY: ??left knee pain COMPARISON: None. Procedure Note Faustino Pereira MD - 06/18/2021 EXAM/TECHNIQUE: 06/18/2021 9:00 AM XR KNE E LEFT 4 OR MORE VIEWS, XR KNEE RIGHT 3 VIEWS 4 (accession [id number]), 3 (accession [id number]) views HISTORY: left knee pain COMPARISON: None. IMPRESSION FINDINGS / IMPRESSION: * Left knee 4 views: Moderate joint effu leigh ann. Tricompartmental degenerative changes which are moderate to severe. Osteopenia. * Right knee 3 views: No significant ost eophyte formation. Osteopenia. Performing Organization Address City/State/ZIP Code Phon e Number [facility] documented in this encounter Visit Diagnoses Diagnosis Chronic pain of left knee Pain in joint, lower leg documented in this encounter Care Teams Paraeducator Relationship Specialty Start Date End Date Gil-Marcy Santos, PCP - General Family Medicine - Primary 1 11/13/18 CLINICAL REHABILITATION COORDINATOR Care [address] [place] [phone] documented as of this encounter
--- OUTSIDE RECORDS SUMMARY | 2022-03-17 20:20 | XMS_ITS | Encounter Summary ---
:[address] [facility] Address [address] [place] [address] Care Team Providers Name Role Phone Marcy Alvarenga CALCULUS TEACHER Primary Care Provider [phone] Encounter Details Date Type Department Care Team [...] [address] [facility], [address] [place] [address] (Wo rk) documented as of this encounter Visit Diagnoses Not on filedocumented in this encounter Care Teams Interior Painter Relationship Specialty Start Date End Date Gil-Marcy Santos, PCP - General Family Medicine - Primary 1 11/13/18 CALCULUS TEACHER Care [address] [facility] [address] [place] [address] documented as of this encounter
--- OUTSIDE RECORDS SUMMARY | 2022-03-17 20:20 | XMS_ITS | Encounter Summary ---
:1965 Author Organization [facility] Address [address] [place] [address] Care Team Providers Name Role Phone Marcy Alvarenga BUSINESS AND MARKETING TEACHER Primary Care Provider [phone] Encounter Details Date Type Department Care Team Description 09/05/2021 Orders Only [facility] Anabel Tejeda [address] [place] [address] Social History Tobacco Use Types [...] Visit Infectious Disease Lilian Rushing MD [address] [facility], [address] [place] [address] (Wo rk) documented as of this encounter Visit Diagnoses Not on filedocumented in this encounter Additional Health Concerns Infection Onset Date Last Indicated Resolved Time MRSAComment: Hx of NTZT-Xoia-97/23/2020 08/29/2021 08/29/20 21 C. Stoner 12/31/21 documented as of this encounter Care Teams Cyber Threat Analyst Relationship Specialty Start Date End Date Marcy Alvarenga, PCP - General Family Medicine - Primary 1 11/13/18 BUSINESS AND MARKETING TEACHER Care [address] [place] [phone] documented as of this encounter
--- OUTSIDE RECORDS SUMMARY | 2022-03-17 20:20 | XMS_ITS | Encounter Summary ---
:1965 Author Organization [facility] Address [address] [place] [address] Care Team Providers Name Role Phone Marcy Alvarenga SKEIN DRIER Primary Care Provider [phone] Encounter Details Date Type Department Care Team [...] Visit Infectious Disease Lilian Rushing MD [address] [facility], [address] [place] [address] (Wo rk) documented as of this encounter Visit Diagnoses Not on filedocumented in this encounter Care Teams Horse Race Timer Relationship Specialty Start Date End Date Gil-Marcy Santos, PCP - General Family Medicine - Primary 1 11/13/18 SKEIN DRIER Care [address] [facility] [address] [place] [address] documented as of this encounter
--- OUTSIDE RECORDS SUMMARY | 2022-03-17 20:20 | XMS_ITS | Encounter Summary ---
:[address] [facility] Address [address] [place] [address] Care Team Providers Name Role Phone Marcy Alvarenga BUSINESS SYSTEMS ANALYST Primary Care Provider [phone] Reason for Visit Reason Onset Date Comments Results 01/09/2021 Encounter Details Date Type Department Care Team Description 01/09/[address] [facility] - [facility] Lilian Rushing MD Results Infectious Disease [address] [facility] 130 [facility]-, [address] [place], [place] [address] [place] [phone] (Wo rk) Social History Tobacco Use [...] bacteria Fungal culture - mold, sent to [facility] for ID elephone Encounter - Aissatou Iraheta [...] call from Mekhi from Dr. Woods at [facility]. He did a procedure on Ha's knee on 12/24/20 and the culture is now growing mold. The isolate has been sent to [facility] and on to [facility] for identification. Verbal report of Coccidioidomycosis, but Epic chart just says mold. [facility] before making any other decisions, but I would like to see him in clinic next week. Thanks! documented in this encounter Plan of Treatment Upcoming Encounters Date Type Specialty Care Team Description 04/14/2022 Office Visit Infectious Disease Lilian Rushing MD [address] [place] [address] [address] [place] [address] (Wo rk) documented as of this encounter Visit Diagnoses Not on filedocumented in this encounter Care Teams Pharmacist Relationship Specialty Start Date End Date Gil-Marcy Santos, PCP - General Family Medicine - Primary 1 11/13/18 BUSINESS SYSTEMS ANALYST Care [address] [place] [address] 2 [place] [address] documented as of this encounter
--- OUTSIDE RECORDS SUMMARY | 2022-03-17 20:20 | XMS_ITS | Encounter Summary ---
:1965 Author Organization [facility] Address [address] [place] [address] Care Team Providers Name Role Phone Marcy Alvarenga MOLD SHIFTER Primary Care Provider [phone] Reason for Visit Reason Onset Date Comments Pre-visit Orders 11/20/2020 Encounter Details Date Type Department Care Team Description 11/20/2020 Telephone [facility] Aissatou Iraheta RN Pre-visit Orders Infectious Disease [address] [place] [address] [place] [address] [phone] Social History Tobacco Use Types Packs/Day Years [...] Visit Infectious Disease Lilian Rushing MD [address] [facility], [address] [place] [address] (Wo rk) documented as of this encounter Visit Diagnoses Diagnosis Asymptomatic HIV infection (HCC) - Prima ry Asymptomatic human immunodeficiency viru s (HIV) infection status documented in this encounter Care Teams Truck Spotter Relationship Specialty Start Date End Date [place]-Marcy Santos, PCP - General Family Medicine - Primary 1 11/13/18 MOLD SHIFTER Care [address] [place] [address] [address] [place] [address] documented as of this encounter
--- OUTSIDE RECORDS SUMMARY | 2022-03-17 20:20 | XMS_ITS | Encounter Summary ---
:1965 Author Organization [facility] Address [address] [place] [address] Care Team Providers Name Role Phone Marcy Alvarenga SALES AND EVENTS COORDINATOR Primary Care Provider [phone] Reason for Referral Radiology Services (Routine/Next Available) - Authorization Not Required Specialty Diagnoses / Procedures Referred By Contact Refer red To Contact Radiology Diagnoses Coccidioidomycosis Arthritis of left knee Lilian Rushing MD [facility] Mri Procedures MR KNEE W WO CONTRAST LEFT [address] 130 [facility], [address] [phone] Referral ID Status Reason Start Expiration Visits Visits Date Date Requested Authorized [id number] Authorization Not 09/03/2021 1 1 Required Reason for Visit Radiology Services (Routine/Next Available) - Authorization Not Required Specialty Diagnoses / Procedures Referred By Contact Refer red To Contact Radiology Diagnoses Coccidioidomycosis Arthritis of left knee Lilian Rushing MD [facility] Mri Procedures MR KNEE W WO CONTRAST LEFT [address] 130 [facility], [address] [place], [place] [address] [place] [phone] Referral ID Status Reason Start Expiration Visits Visits Date Date Requested Authorized [id number] Authorization Not 09/03/2021 1 1 Required Encounter Details Date Type Department Care Team Description 11/27/2021 Hospital Encounter [facility] - C occidioidomycosis; [facility] MRI Arthritis of left knee [address] [place] [address] Social History Tobacco Use Types Packs/Day Years [...] 3 04/24 mg tablet MOUTH EVERY DAY [id number] Take 1 Tablet by 90 Tablet 3 202012/10/2021 ALAFEN (GENVOYA) mouth daily for 90 [phone] mg days. tabletIndications: HIV infection posaconazole (NOXAFIL) [...] Visit Infectious Disease Lilian Rushing MD [address] [place] [address], [address] [place] [address] (Wo rk) documented as [...] Lower Extremities Left Magnetic Resonance Specimen Impressions [facility] - 11/27/2021 20:08 EST [...] REGARDING THIS REPORT PLEASE CALL [facility] AT [phone] Narrative [facility] - 11/27/2021 20:08 EST [...] REGARDING THIS REPORT PLEASE CALL [facility] AT [phone] Performing Organization Address City/State/ZIP Code Phon e Number [facility] documented in this encounter [...] Last Indicated Resolved Time MRSAComment: Hx of CTCS-Rlff-33/23/2020 08/29/2021 08/29/20 21 C. Stoner 12/31/21 documented as of this encounter Care Teams Braille Translator Relationship Specialty Start Date End Date Gil-Marcy Santos, PCP - General Family Medicine - Primary 1 11/13/18 SALES AND EVENTS COORDINATOR Care [address] [place] [phone] documented as of this encounter
--- OUTSIDE RECORDS SUMMARY | 2022-03-17 20:20 | XMS_ITS | Encounter Summary ---
:1965 Author Organization [facility] Address [address] [place] [address] Care Team Providers Name Role Phone Marcy Alvarenga STATION BAGGAGE PORTER Primary Care Provider [phone] Reason for Visit Reason Onset Date Comments Orders (Non Pre-visit) 09/26/2021 Encounter Details Date Type Department Care Team Description 09/26/2021 Telephone [facility] - Aissatou Iraheta RN Orders (Non Pre-visit) [facility] Infectious Dise ase [address] [place] [address] [place], [place] [id number] Social History Tobacco Use Types Packs/Day Years [...] Visit Infectious Disease Lilian Rushing MD [address] [place] [address] [address] [place], [place] [phone] (Wo rk) documented as of this encounter Visit Diagnoses Not on filedocumented in this encounter Additional Health Concerns Infection Onset Date Last Indicated Resolved Time MRSAComment: Hx of BPLH-Gaaq-37/23/2020 08/29/2021 08/29/20 21 C. Stoner 12/31/21 documented as of this encounter Care Teams Academic Records Specialist Relationship Specialty Start Date End Date Gil-Marcy Santos, PCP - General Family Medicine - Primary 1 11/13/18 STATION BAGGAGE PORTER Care [address] [place] [address] 2 [place] [phone] documented as of this encounter
--- OUTSIDE RECORDS SUMMARY | 2022-03-17 20:20 | XMS_ITS | Encounter Summary ---
:1965 Author Organization [facility] Address [address] [place] [address] Care Team Providers Name Role Phone Marcy Alvarenga PLASTERER TENDER Primary Care Provider [phone] Reason for Visit Reason Onset Date Comments Other 02/05/2021 patient care Encounter Details Date Type Department Care Team Description 02/05/2021 Telephone [facility] - Jennie Rushing MD Other (patient care) [facility] 130 [facility] 130 [facility], [address] [place] [address] [place] [phone] (Wo rk) Social History Tobacco Use [...] as well as the likely referral to [facility]. Also relayed my conversation with the [facility] [place]. They recommended treating with antifungals and repeating [...] did not need to talk with the conductor yard physician, but would like to talk. He will be operating tomorrowand will try to contact you in between patients, or he will be in office on and he said youcan reach him on his cell phone at [phone] signed by Radha Campbell at 02/05/2021 16:13 EDTdocumented in this encounter Plan of Treatment Upcoming Encounters Date Type Specialty Care Team Description 04/14/2022 Office Visit Infectious Disease Lilian Rushing MD [address] [place] [address], [address] [place] [address] (Wo rk) documented as of this encounter Visit Diagnoses Not on filedocumented in this encounter Care Teams Padder Relationship Specialty Start Date End Date Gil-Marcy Santos, PCP - General Family Medicine - Primary 1 11/13/18 PLASTERER TENDER Care [address] [place] [address] [address] [place] [phone] documented as of this encounter
--- OUTSIDE RECORDS SUMMARY | 2022-03-17 20:21 | XMS_ITS | Encounter Summary ---
:1965 Author Organization [facility] Address [address] [place] [address] Care Team Providers Name Role Phone Marcy Alvarenga LAMINATING PRESS OPERATOR Primary Care Provider [phone] Encounter Details Date Type Department Care Team [...] 130 [facility], [address] [place] [address] (Wo rk) documented as of this encounter Visit Diagnoses Not on filedocumented in this encounter Care Teams License Inspector Relationship Specialty Start Date End Date Marcy Alvarenga, PCP - General Family Medicine - Primary 1 11/13/18 LAMINATING PRESS OPERATOR Care [address] [facility] [address] [place] [address] documented as of this encounter
--- OUTSIDE RECORDS SUMMARY | 2022-03-17 20:21 | XMS_ITS | Encounter Summary ---
:[address] [facility] Address [address] [place] [address] Care Team Providers Name Role Phone Marcy Alvarenga SOCIAL SERVICE WORKER Primary Care Provider [phone] Encounter Details Date Type Department Care Team [...] Visit Infectious Disease Lilian Rushing MD [address] [place] [address], [address] [place] [address] (Wo rk) documented as of this encounter Visit Diagnoses Not on filedocumented in this encounter Care Teams Wastewater Process Engineer Relationship Specialty Start Date End Date Marcy Alvarenga, PCP - General Family Medicine - Primary 1 11/13/18 SOCIAL SERVICE WORKER Care [address] [place] [phone] documented as of this encounter
--- OUTSIDE RECORDS SUMMARY | 2022-03-17 20:21 | XMS_ITS | Encounter Summary ---
:1965 Author Organization [facility] Address [address] [place] [address] Care Team Providers Name Role Phone Marcy Alvarenga COBBLER UPPER Primary Care Provider [phone] Encounter Details Date Type Department Care Team Description 03/07/2020 Lab Requisition [facility] Outr Resulting Lab, Pathology & Laboratory Provider [facility] [address] [place] [address] Social History Tobacco Use Types Packs/Day Years [...] Visit Infectious Disease Lilian Rushing MD [address] [place] [address], [address] [place] [address] (Wo rk) documented as of this encounter Procedures Procedure Name Priority Date/Time Associated Diagnosis Comme nts COVID-19 TEST [facility] Today 03/07/2020 14:37 LAB PCR EDT COVID-19 TESTING Routine 03/07/2020 14:37 Results for this EDT procedure are i n the results section. documented in this encounter Results COVID-19 TEST [facility] LAB PCR (03/07/2020 14:37 EDT) Specimen Swab - Entire nasopharynx (body structur e) Performing Organization Address City/[facility] Phon e Number [facility] [address] [place] [address] SERVICES COVID-19 TESTING (03/07/2020 14:37 EDT) COVID-19 rt-PCR Negative Negative [facility] Result Comment: CENTER LABORATORY Negative results do not prec lude 2019-nCoV infection and should not be used as the sole basis for treatment or other patient management decisions. Negative results must be combined with clinical observa SERVICES tions, patient history, and epidemiological informatio n. This test was developed and its performance characteristics determined by [facility]. It has not been cleared or approved [...] by the FDA Performed on the [employer] go2 media 7500 Fast. Performing Lab [facility] Hospital Lab [facility] SERVICES Specimen Swab - Entire nasopharynx (body structur e) Performing Organization Address City/[facility] Phon e Number [facility] [address] [place] [address] SERVICES documented in this encounter Visit Diagnoses Not on filedocumented in this encounter Additional Health Concerns Infection Onset Date Last Indicated Resolved Time MRSAComment: Hx of ANZQ-Hgkm-32/23/2020 08/29/2021 08/29/20 21 C. Stoner 12/31/21 documented as of this encounter Care Teams Box Spring Frame Builder Relationship Specialty Start Date End Date Marcy Alvarenga, PCP - General Family Medicine - Primary 1 11/13/18 COBBLER UPPER Care [address] [place] [phone] documented as of this encounter
--- OUTSIDE RECORDS SUMMARY | 2022-03-17 20:21 | XMS_ITS | Encounter Summary ---
:1965 Author Organization [facility] Address [address] [place] [address] Care Team Providers Name Role Phone Marcy Alvarenga WIRE DRAWING MACHINE TENDER Primary Care Provider [phone] Reason for Visit Reason Onset Date Comments COVID-19 03/07/2020 testing Encounter Details Date Type Department Care Team Description 03/07/2020 Telephone [facility] Aissatou Iraheta RN COVID-19 (testing) Infectious Disease [address] [place] [address] [place], [place] [address] [phone] Social History Tobacco Use Types Packs/Day Years [...] by provider. Routed for testing ordering. Vehicle Wisr Color: Miramontes Cell #: [phone] Spoke to patient and verbally gave instructions for Testing Facility. Patient is instructed to be there at 3:00 pm mingo. elephone Encounter - Gabrielle Diaz - 03/07/2020 1421 EDT LMOM for patient to call back to be scheduled for testing. elephone Encounter - Aissatou Iraheta RN - 03/07/2020 1405 EDT Poli is a 54 year old [...] has a flight planned for tomorrow to [place]. Dr. Rushing Authorized testing. COVID-19 testing has been ordered in today's nurse visit. Sending to [facility] mobile testing pss for scheduling. documented in this encounter Plan of Treatment Upcoming Encounters Date Type Specialty Care Team Description 04/14/2022 Office Visit Infectious Disease Lilian Rushing MD [address] [facility], [address] [place] [address] (Wo rk) documented as of this encounter Visit Diagnoses Not on filedocumented in this encounter Care Teams Process Tech Relationship Specialty Start Date End Date [place]-Marcy Sanots, PCP - General Family Medicine - Primary 1 11/13/18 WIRE DRAWING MACHINE TENDER Care [address] [place] [address] [address] [place] [phone] documented as of this encounter
--- OUTSIDE RECORDS SUMMARY | 2022-03-17 20:21 | XMS_ITS | Encounter Summary ---
:1965 Author Organization [facility] Address [address] [place] [address] Care Team Providers Name Role Phone Marcy Alvarenga KNEE BOLTER Primary Care Provider [phone] Reason for Visit Reason Comments Mass lft side of head-painful Encounter Details Date Type Department Care Team Description 08/17/2020 Walk-In [facility] Krystle Monte NP Abscess (Primary Dx) [facility] [address] [place] [address] [address] [phone] [address] [place] [address] (Wo rk) Social History Tobacco Use Types [...] EDTAssociated Order(s): Incision and DrainagePost-Procedure Diagnose(s): Abscess [facility] Express Care Chief Complaint(s): Mass (lft side [...] to verify the correct patient, procedure, equipment, technical support coordinator and site/side marked as required. Type: abscess [...] no, have they had travel outside the [facility] in the past 14 days? (If no, see in NRC) no If yes, was it to an area that required quarantine? (If yes, see in ARC. If quarantine of 14 days has already been completed, see in NRC) *may be determined by RN/BOARD SETTER or in discussion with available provider (CCA's can defer to Charge Nurse or Nurse they are working with to complete triage when appropriate) Reference Cross State Travel Map to see if the location falls within a low risk area (<400 cases per million): https://accd.[place].gov/covid-19/restart/dbarr-laxbc-nrblma documented in this encounter Plan of Treatment Upcoming Encounters Date Type Specialty Care Team Description 04/14/2022 Office Visit Infectious Disease Lilian Rushing MD [address] [place] [address], [address] [place] [address] (Wo rk) Scheduled Orders Name Type Priority Associated Diagnoses Order S chedule BACTERIAL Microbiology Routine Abscess Ordered: 2019 CULTURE/SMEAR documented as of this encounter Procedures Procedure Name Priority Date/Time Associated Diagnosis Comme nts ROUTINE CULTURE - Routine 08/17/2020 17:16 Abscess Result s for this [facility] EDT procedure are i n the results [...] in this encounter Results ROUTINE CULTURE - [facility] (08/17/2020 17:16 EDT) Culture NEW MRSA RESULTS CALLED TO DAVID BUSH [facility] EXPR ESS CARE - [facility], 08/21/20 0924 [facility] 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 It is resistant to oxacillin, cephalosporins and other beta lactam antibiotics. SPECIMEN IS COMPROMISED. 36 HOURS FROM COLLECTION UNTI L RECEIPT IN THE LABORATORY. FASTIDIOUS ORGANISMS MAY NO T BE RECOVERED STAPHYLOCOCCUS SP STAPHYLOCOCCUS SP [facility] COAG POSITIVE - [facility] COAG POS [facility] QUANT - [facility] MODERATE [facility] Specimen Head Organism Antibiotic Method Susceptibility Staphylococcus sp coag Azithromycin GRAM POSITIVE Resistant pos SUSCEPTIBILITY - [facility] Staphylococcus sp coag Clindamycin GRAM POSITIVE <=0.25: S usceptible pos SUSCEPTIBILITY - [facility] Staphylococcus sp coag Cefazolin GRAM POSITIVE Resistant pos SUSCEPTIBILITY - [facility] Staphylococcus sp coag Erythromycin GRAM POSITIVE >=8: Resi stant pos SUSCEPTIBILITY - [facility] Staphylococcus sp coag Levofloxacin GRAM POSITIVE <=0.12: S usceptible pos SUSCEPTIBILITY - [facility] Staphylococcus sp coag Oxacillin GRAM POSITIVE >=4: Resi stant pos SUSCEPTIBILITY - [facility] Staphylococcus sp coag Trimethoprim-Sulfame GRAM POSITIVE <=10 : Susceptible pos thoxazole SUSCEPTIBILITY - [facility] Staphylococcus sp coag Tetracycline GRAM POSITIVE <=1: Susc eptible pos SUSCEPTIBILITY - [facility] Staphylococcus sp coag Vancomycin GRAM POSITIVE 1: Suscep tible pos SUSCEPTIBILITY - [facility] Staphylococcus sp coag Linezolid GRAM POSITIVE 2: Suscep tible pos SUSCEPTIBILITY - [facility] Comment: Tetracycline susceptible Coa g positive staph is also susceptible to doxycycline a nd minocycline. Comment: GROWTH ON SIDE OF HEAD CELL [phone] BLACK Performing Organization Address City/[facility] Code Phon e Number [facility] [address] [place] [address] GRAM SMEAR (08/17/2020 17:16 EDT) GRAM STAIN - [facility] TWO SWABS RECEIVED [facility] GRAM STAIN GRAM POSITIVE COCCI FEW [facility] - [facility] WBC NO [facility] Specimen Head Performing Organization Address [facility] Phon e Number [facility] [address] [place] [address] CO DRAIN SKIN ABSCESS SIMPLE, HC - INCISION [...] verify the correct patient, procedure, equipmen t, technical support coordinator and site/side marked as required. Type: abscess [...] te documented in this encounter Care Teams Trimming Press Operator Relationship Specialty Start Date End Date Gil-Marcy Santos, PCP - General Family Medicine - Primary 1 11/13/18 KNEE BOLTER Care [address] [place] [phone] documented as of this encounter
--- OUTSIDE RECORDS SUMMARY | 2022-03-17 20:21 | XMS_ITS | Encounter Summary ---
:1965 Author Organization [facility] Address [address] [place] [address] Care Team Providers Name Role Phone Marcy Alvarenga DISTRICT FIRE MANAGEMENT OFFICER Primary Care Provider [phone] Reason for Visit Reason Onset Date Comments Medication Problem 09/29/2019 Encounter Details Date Type Department Care Team Description 09/29/2019 Telephone [facility] Aissatou Iraheta RN Medication Problem Infectious Disease [address] [place] [address] [place] [address] [phone] Social History Tobacco Use Types Packs/Day Years [...] Sig Dispensed Refills Start Date End Date ywrtpvz-deq-qljiz-tenof Take 1 Tab by mouth 90 Tab 1 04/18/2020 ALAFEN (GENVOYA) daily for 90 days. [phone] mg tabletIndications: HIV infection documented in this encounter Miscellaneous Notes Telephone Encounter - Lilian Rushing MD - 10/24/2019 1014 EST Noted, thanks. elephone Encounter - Aissatou Iraheta RN - 10/24/2019 0938 EST Bernardino at [facility] said pt is all set, she mailed out his card today. If he would like to shredder picker meds before the card arrives he needs to give the pharmacy the following information, ID#: [id number] BIN#: [id number] PCN: [id number] I called [facility] in [place] and gave them the above information. The Genvoya is covered in full and theydo have it in stock. She will work on getting the rx ready for shredder picker. Left message for pt stating application has been approved, he will receive card in the mail, and [facility] is getting his rx ready for him. Call if he has any questions or problems. elephone Encounter - Aissatou Iraheta RN - 10/17/2019 1531 EST I called the [facility] office, they are closed until 10/21 elephone Encounter - Aissatou Iraheta RN - 10/17/2019 1405 EST Pt stopped in with completed application, pay stubs, and cable bill. He could not find his old tax 1040 form, its in [place]. He has his brother look for it but he couldn't find it. I faxed the completed application to the [facility] coordinator. I said I can send in his rx to the [facility] in [place]. Once the application is approved he can pick his meds up there. I will call [facility] later today to confirm the received [...] him information to the Patient Navigators at [facility] who can sit down with him and appt [place] insurance per CHT. elephone Encounter - Aissatou Iraheta RN - 10/05/2019 1039 EST Call from [facility] specialty pharmacy. Insuance is stating [place] is not part of medicaid. I spoke with the Sabiha the pharmacist. They are using pts [place] insurance. If Dr. Rushing is not signed [...] Visit Infectious Disease Lilian Rushing MD [address] [place] [address], [address] [place] [address] (Wo rk) documented as of this encounter Visit Diagnoses Not on filedocumented in this encounter Discontinued Medications Medication Sig Discontinue Reason Start Date End Date sgkkvzn-cbi-wadav-tenof Take 1 Tab by mouth Reorder 09/27/2019 10/17/2019 ALAFEN (GENVOYA) daily for 90 days. [phone] mg tabletIndications: HIV infection documented as of this encounter Care Teams Pig Handler Relationship Specialty Start Date End Date Marcy Alvarenga, PCP - General Family Medicine - Primary 1 11/13/18 DISTRICT FIRE MANAGEMENT OFFICER Care [address] [place] [phone] documented as of this encounter
--- OUTSIDE RECORDS SUMMARY | 2022-03-17 20:21 | XMS_ITS | Encounter Summary ---
:1965 Author Organization [facility] Address [address] [place] [address] Care Team Providers Name Role Phone Marcy Alvarenga DIESEL MECHANIC HELPER Primary Care Provider [phone] Reason for Visit Reason Onset Date Comments Update 11/01/2019 med and insurance Encounter Details Date Type Department Care Team Description 11/01/2019 Telephone [facility] - Aissatou Iraheta RN Update (med and [facility] Infectious Dise ase [address] [facility] insurance) [address] [place] [address] [place], [place] [address] Social History Tobacco Use Types Packs/Day Years [...] EST ----- Check in with pt about [place]. documented in this encounter Plan of Treatment Upcoming Encounters Date Type Specialty Care Team Description 04/14/2022 Office Visit Infectious Disease Lilian Rushing MD [address] [place] [address] [address] [place] [address] (Wo rk) documented as of this encounter Visit Diagnoses Not on filedocumented in this encounter Care Teams Refrigeration Technician Relationship Specialty Start Date End Date Gil-Marcy Santos, PCP - General Family Medicine - Primary 1 11/13/18 DIESEL MECHANIC HELPER Care [address] [place] [address] 2 [place] [phone] documented as of this encounter
--- OUTSIDE RECORDS SUMMARY | 2022-03-17 20:21 | XMS_ITS | Encounter Summary ---
:1965 Author Organization [facility] Address [address] [place] [address] Care Team Providers Name Role Phone None, Provider Primary Care Provider Unavailable None, Provider Primary Care Provider Unavailable Encounter Details Date Type Department Care Team Description 04/28/2019 Historical Results [facility] - Lilian Rushing, Only [facility] - Main [facility] 130 [facility] [address] [place] [address] [address]OB[address], [place] [address] Social History Tobacco Use Types [...] Visit Infectious Disease Lilian Rushing MD [address] [facility] [address], [address] [place] [address] (Wo rk) documented as of this encounter Procedures Procedure Name Priority Date/Time Associated Comments Diagnosis HIV 1 RNA Routine 04/28/2019 13:43 Results for this QUANTITATION EDT procedure are i n the results section. documented in this encounter Results HIV 1 RNA QUANTITATION (04/28/2019 13:43 EDT) HIV-1 RNA QUANT - Undetected Undetected [facility] Comment: [facility] INFCE Result Units: copies/mL Result in log copies/mL is Undetected. ADDITIONAL INFORMATION ------ The quantification range of this assay is 20 to 10,000 ,000 copies/mL (1.30 log to 7.00 log copies/mL). Testing wa s performed using the rafael HIV-1 test ([employer] with the rafael Group Therapy Records0 System. This test has been modified from the relay tester's instructions. Its performance characteristics were determined by [facility] in a manner consistent with CLIA requirements. This test has not been cleared or approv ed by the U.S. Food and Drug Administration. Test Performed by: [facility] - [address] [address] Specimen Narrative [facility] - 019 19:31 EDT Does PT Have a Latex Allergy? NO Performing Organization Address City/State/ZIP Code Phon e Number [facility] [address] LAB documented in this encounter Visit Diagnoses Not on filedocumented in this encounter Care Teams School Coordinator Relationship Specialty Start Date End Date None, Provider PCP - General 04/22/19 06/22/19 None, Provider PCP - General 06/23/19 09/12/19 documented as of this encounter
--- OUTSIDE RECORDS SUMMARY | 2022-03-17 20:21 | XMS_ITS | Encounter Summary ---
:1965 Author Organization [facility] Address [address] [place] [address] Care Team Providers Name Role Phone Marcy Alvarenga DIRECTOR DATA PROCESSING Primary Care Provider [phone] Reason for Visit Reason Comments Pain Consult (3 - 10 Business Days) - Specialty Report Received Specialty Diagnoses / Procedures Referred By Contact Refer red To Contact Orthopedic Surgery Diagnoses Arthritis of left knee Marcy Alvarenga [facility], DIRECTOR DATA PROCESSING [address], [address] [place] [address] [address] [place] [address] [place] [address] Referral ID Status Reason Start Expiration Visits Visits Date Date Requested Authorized [id number] Specialty Specialty 05/01/2020 1 1 Report Services Received Required Encounter Details Date Type Department Care Team Description 06/01/2020 Office Visit [facility] - Socorro Bravo Ar thritis of left [facility] Orthopedics & PRINCE Diaz knee (Primary Dx) Sport Medicine [address] [place] [address] [address] [place] [address] [place] [address] (Wo rk) Social History Tobacco [...] verify the correct patient, procedure, equipment, support team member and site/side marked as required. Patient was prepped anddraped in the usual sterile fashion. ahiana Brown LPN - 06/01/2020 1100 EDT CHIEF COMPLAINT: Left knee pain SUBJECTIVE: Ha Soria is a 54 y.o. male who presents today with left knee pain. 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 He is currently under the care of infectious disease here at [facility] for ongoing care of HIV. He states that he has significant knee pain, every once in a whileit will flare, and become swollen, difficult to walk on. 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 Taking care of his aging parents in [place]. He denies any prior history of injury to the left knee, but didhave a previous infection. Has known severe osteoarthritis in that knee. The past medical, family and social history have been reviewed in the patient chart. Past Medical History: Diagnosis Date ??? BPH (benign prostatic hyperplasia) ??? HIV (human immunodeficiency virus infection) ([facility]) ??? Hypertension Social History Tobacco Use ??? [...] swab 1 nael applied topically PRN ??? iggigzi-cjm-wawwv-tenof ALAFEN (GENVOYA) [phone] mg tablet Take 1 Tab by mouth [...] Visit Infectious Disease Lilian Rushing MD [address] [place] [address], [address] [place] [address] (Wo rk) documented as of this encounter Procedures Procedure Name Priority Date/Time Associated Diagnosis Comme nts LARGE JOINT Routine 06/01/2020 11:00 Arthritis of left Result s for this INJECTION/ARTHROCEN EDT knee procedur e are in TESIS the results section. documented in this encounter Results AR ARTHROCENTESIS ASPIR&/INJ MAJOR JT/BURSA W/O US (06/01/2020 11:00 EDT) Narrative [facility] - 06/01/2020 11:00 E Socorro Pascual PA-C [...] y the correct patient, procedure, equipment, support team member and site/side m arked as required. Patient was prepped and draped in the usual sterile fashion. Performing Organization Address City/State/ZIP Code Phon e Number [facility] documented in this encounter Visit Diagnoses [...] Routine documented in this encounter Care Teams News Video Editor Relationship Specialty Start Date End Date Gil-Marcy Santos, PCP - General Family Medicine - Primary 1 1/19/19 DIRECTOR DATA PROCESSING Care [address] [place] [phone] documented as of this encounter
--- OUTSIDE RECORDS SUMMARY | 2022-03-17 20:21 | XMS_ITS | Encounter Summary ---
:1965 Author Organization [facility] Address [address] [place] [address] Care Team Providers Name Role Phone Marcy Alvarenga FILL PLANT OPERATOR Primary Care Provider [phone] Reason for Visit Reason Comments Follow-up Plantar warts Follow-up Encounter Details Date Type Department Care Team Description 06/12/2020 Office Visit [facility] - Perlita Mcmahon P lantar verruca (Primary Dx); [facility] Orthopedics & DPM Digital mucous cyst of toe Podiatry [address], [facility] [address] [place] [address] [place], [place] [phone] (Wo rk) Social History Tobacco Use Types [...] Visit Infectious Disease Lilian Rushing MD [address] [facility] [address] [place] [address] (Wo rk) documented as of this encounter Visit Diagnoses Diagnosis Plantar verruca - Primary Plantar wart Digital mucous cyst of toe documented in this encounter Care Teams Beam Builder Helper Relationship Specialty Start Date End Date Gil-Marcy Santos, PCP - General Family Medicine - Primary 1 11/13/18 FILL PLANT OPERATOR Care [address] [place] [address] [address] [place] [address] documented as of this encounter
--- OUTSIDE RECORDS SUMMARY | 2022-03-17 20:21 | XMS_ITS | Encounter Summary ---
:1965 Author Organization [facility] Address [address] [place] [address] Care Team Providers Name Role Phone Marcy Alvarenga SUPERVISOR GRIPS Primary Care Provider [phone] Encounter Details Date Type Department Care Team [...] Visit Infectious Disease Lilian Rushing MD [address] [place] [address], [address] [place] [address] (Wo rk) documented as of this encounter Visit Diagnoses Not on filedocumented in this encounter Care Teams Embedded Firmware Engineer Relationship Specialty Start Date End Date Marcy Alvarenga, PCP - General Family Medicine - Primary 1 11/13/18 SUPERVISOR GRIPS Care [address] [place] [phone] documented as of this encounter
--- OUTSIDE RECORDS SUMMARY | 2022-03-17 20:21 | XMS_ITS | Encounter Summary ---
:1965 Author Organization [facility] Address [address] [place] [address] Care Team Providers Name Role Phone Marcy Alvarenga MOBILE UI/UX DESIGNER Primary Care Provider [phone] Reason for Visit Reason Comments HIV Infection Encounter Details Date Type Department Care Team Description 03/05/2020 Telemedicine [facility] - Lilian Rushing Asy mptomatic HIV infection ([facility] (Primary Dx); [facility] Infectious MD Encounter for immunization; Disease [address] [facility] Chronic knee pain, unspecified lateralit y; 130 [facility] [address], [address] [place] [address] [place] [phone] Social History Tobacco Use Types Packs/Day [...] increasing creatinine.Remote h/o coccidioidomycosis. He move to [place] from [place] in the summer of 2018 to take care of his aging parents, but is planning on moving at some point. 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 He is now set up with [facility] for his HIV meds. At [...] He said he is pretty much in [employer]. 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 He is getting stir crazy. He is flying to [facility] - a lot of his stuff [...] reflex to culture Lilian Rushing MD, MPH [facility] Infectious Disease Office: [phone] CC: referring provider, PCP?? documented in this encounter Miscellaneous Notes Addendum Note - Aissatou Morales RN - 03/05/2020 1100 EDT Addended by: AISSATOU MORALES on: 03/07/2020 12:55 Modules accepted: Orders documented in this encounter Plan of Treatment Upcoming Encounters Date Type Specialty Care Team Description 04/14/2022 Office Visit Infectious Disease Lilian Rushing MD [address] [facility], [address] [place] [address] (Wo rk) Scheduled Orders [...] xpected: 03/06/2020 SEDIMENT (MICRO) WITHOUT infecti on ([facility]) (Approximate), REFLEX TO CULTURE Medication monitoring E xpires: 03/05/2021 encounter documented as of this encounter Results (ABNORMAL) BASIC METABOLIC PANEL (BMP) (03/07/2020 13:30 EDT) BUN - [facility] 31 (H) 10 - 26 mg/dL [facility] CALCIUM - [facility] 9.6 8.5 - 10.5 [facility] mg/dL [facility] Chloride 99 96 - 110 [facility] mmol/L [facility] CO2 Total 27 21 - 32 mEq/L [facility] CREATININE 1.03 0.66 - 1.25 [facility] mg/dL [facility] eGFR >60 [facility] Comment: [facility] Chronic renal impairment is defined as GFR <60 Multiply result by 1.210 for patients . Anion Gap 8 0 - 18 [facility] GLUCOSE - [facility] 103 (H) 70 - 100 mg/dL [facility] Potassium 4.5 3.5 - 5.0 [facility] mEq/L [facility] Sodium 134 (L) 136 - 145 [facility] mEq/L [facility] Specimen Blood - Venous blood (substance) Performing Organization Address City/State/ZIP Code Phon e Number [facility] [address] [place] [address] [facility] (ABNORMAL) IMMUNODEFICIENCY PANEL (03/07/2020 13:30 EDT) % CD3 75 62 - 87 % [facility] % CD4 33 (A) 35 - 63 % [facility] % CD8 37 (A) 10 - 35 % [facility] Absolute CD4 728 329-1,427 [facility] Comment: Cells/uL [facility] Test performed or referred by The [address] [address] Specimen Blood - Venous blood (substance) Performing Organization Address City/State/ZIP Code Phon e Number [facility] [address] [place] [address] [facility] documented in this encounter Visit [...] 03/05/2020 documented in this encounter Care Teams Roller Printing Supervisor Relationship Specialty Start Date End Date Gil-Marcy Santos, PCP - General Family Medicine - Primary 1 11/13/18 MOBILE UI/UX DESIGNER Care [address] [place] [phone] documented as of this encounter
--- OUTSIDE RECORDS SUMMARY | 2022-03-17 20:21 | XMS_ITS | Encounter Summary ---
:1965 Author Organization [facility] Address [address] [place] [address] Care Team Providers Name Role Phone Marcy Alvarenga CLIENT CARE CONSULTANT Primary Care Provider [phone] Encounter Details Date Type Department Care Team Description 12/05/2019 Abstract [facility] [place] [facility] [place] Coord [facility], Family Medicine - [place] in [place] [address], [address] [place] [address] Social History Tobacco Use Types [...] Office Visit Infectious Disease Lilian Rushing MD [address] [place] [address], [address] [place] [address] (Wo rk) documented as of this encounter Visit Diagnoses Not on filedocumented in this encounter Care Teams Chain Person Relationship Specialty Start Date End Date Marcy Alvarenga, PCP - General Family Medicine - Primary 1 11/13/18 CLIENT CARE CONSULTANT Care [address] [place] [phone] documented as of this encounter
--- OUTSIDE RECORDS SUMMARY | 2022-03-17 20:21 | XMS_ITS | Encounter Summary ---
:1965 Author Organization [facility] Address [address] [place] [address] Care Team Providers Name Role Phone Marcy Alvarenga SHOTWELD OPERATOR Primary Care Provider [phone] Encounter Details Date Type Department Care Team [...] Infectious Disease Lilian Rushing MD [address] [facility], [address] [place] [address] (Wo rk) documented as of this encounter Visit Diagnoses Not on filedocumented in this encounter Care Teams [employer] Workman Relationship Specialty Start Date End Date Marcy Alvarenga, PCP - General Family Medicine - Primary 1 11/13/18 SHOTWELD OPERATOR Care [address] [facility] [address] [place] [address] documented as of this encounter
--- OUTSIDE RECORDS SUMMARY | 2022-03-17 20:21 | XMS_ITS | Encounter Summary ---
:1965 Author Organization [facility] Address [address] [place] [address] Care Team Providers Name Role Phone None, Provider Primary Care Provider Unavailable Encounter Details Date Type Department Care Team Description 09/01/2019 Results Only [facility] - [facility] Lilian Rushing MD Lab - [facility] [address], [address] [place] [address] [place] [address] (Wo rk) Social History Tobacco [...] Visit Infectious Disease Lilian Rushing MD [address] [facility] [address], [address] [place] [address] [...] nature APID PLASMA REAGIN - Nonreactive NEG [facility] Specimen Performing Organization Address City/[facility]/[place]IP [facility] [place] [facility] [address] LAB (ABNORMAL) IMMUNODEFICIENCY PANEL (09/01/2019 11:45 EST) Pathologist [facility] % CD3 60 (A) 62 - 87 % [facility] % CD4 27 (A) 35 - 63 % [facility] % CD8 29 10 - 35 % [facility] Absolute CD4 403 329 - 1,427 [facility] Comment: cells/uL [facility] Reviewed by Dr. Miracle Dominguez Test [place] [address] Specimen Performing Organization Address City/State/ZIP [facility] [place] [facility] [address] LAB HIV 1 RNA QUANTITATION (09/01/2019 11:45 EST) Pathologist [facility] HIV-1 RNA QUANT - Undetected Undetected [facility] Comment: [facility] LAB INFCE Result Units: copies/mL Result in log copies/mL is Undetected. ADDITIONAL INFORMATION ------ The quantification range of this assay is 20 to 10,000 ,000 copies/mL (1.30 log to 7.00 log copies/mL). Testing wa s performed using the rafael HIV-1 test ([employer] with the rafael 6800 System. This test has been modified from the healthcare receptionist's instructions. Its performance characteristics were determined by [facility] in a manner consistent with CLIA requirements. This test has not been cleared or approv ed by the U.S. Food and Drug Administration. Test Performed by: [facility] [address] Combination Building Inspector: Pritesh Mcgee M.D. Ph.D.; CLIA# [id number] Specimen Performing Organization Address [facility] Phon e Number [facility] [address] [place] [address] LAB UA, CHEMICAL AND SEDIMENT ANALYSIS (DIPSTICK AND MICROSCOPIC) (09/01/2019 11:45 EST) Pathologist Sig nature URINE APPEARANCE - Clear CLEAR [facility] URINE BILIRUBIN - Negative NEGATIVE [facility] DIPSTICK [facility] URINE BLOOD - [facility] Negative NEG [facility] URINE COLOR - [facility] Yellow YELLOW [facility] URINE GLUCOSE - Negative NEGATIVE [facility] DIPSTICK [facility] URINE KETONE - [facility] Negative NEGATIVE [facility] URINE LEUK ESTERASE - Negative NEG [facility] URINE NITRITE - Negative NEG [facility] URINE PH - [facility] 6.0 4.0 - 8.0 [facility] URINE PROTEIN - Negative NEG [facility] DIPSTICK [facility] URINE SPECIFIC GRAVITY 1.015 1.001 - 1.035 [facility] ED [facility] URINE UROBILINOGEN - 0.2 0.2 - 1.0 [facility] Specimen Performing Organization Address City/[facility] Phon e Number [facility] [address] LAB COMPREHENSIVE METABOLIC PANEL (CMP) (09/01/2019 11:45 EST) ALBUMIN - [facility] 3.7 3.4 - 4.9 [facility] g/dL [facility] LAB ALKALINE 60 38 - 126 U/L [facility] PHOSPHATASE - [facility] LAB BILIRUBIN TOTAL 0.3 0.2 - 1.3 [facility] mg/dL [facility] LAB BUN - [facility] 20 10 - 26 mg/dL [facility] CALCIUM - [facility] 9.6 8.5 - 10.5 [facility] mg/dL [facility] LAB Chloride 99 96 - 110 [facility] mmol/L [facility] LAB CO2 Total 31 21 - 32 mEq/L [facility] CREATININE 0.88 0.66 - 1.25 [facility] mg/dL [facility] LAB eGFR >60 [facility] Comment: [facility] CENTER LAB Chronic renal impairment is defined as GFR <60 Multiply result by 1.210 for patients . Anion Gap 6 0 - 18 [facility] GLUCOSE - [facility] 85 70 - 100 [facility] mg/dL [facility] LAB Potassium 4.4 3.5 - 5.0 [facility] mEq/L [facility] LAB Sodium 136 136 - 145 [facility] mEq/L [facility] LAB TOTAL PROTEIN - 6.9 6.2 - 8.2 [facility] gm/dL [facility] LAB SGOT/AST - [facility] 17 17 - 59 U/L [facility] SGPT/ALT - [facility] 21 21 - 72 U/L [facility] Specimen Performing Organization Address City/State/ZIP Code Phon e Number [facility] [address] LAB (ABNORMAL) COMPLETE BLOOD COUNT WITH DIFFERENTIAL (AUTO) (09/01/2019 11:45 EST) Pathologist Sig nature ABSOLUTE NEUTROPHIL 4.6 2.2 - 8.85 [facility] COUN - [facility] 10e3/uL CENTER LAB BASO # - [facility] 0.01 0.01 - 0.11 [facility] 10e/uL CENTER LAB BASO % - [facility] 0 0 - 2 % [facility] EOS # - [facility] 0.06 0.03 - 0.61 [facility] 10e3/ul CENTER LAB EOS % - [facility] 1 0 - 5 % [facility] GRAN % - [facility] 68.3 40 - 80 % [facility] HEMATOCRIT - [facility] 40.0 39.5 - 50.2 % [facility] HEMOGLOBIN - [facility] 13.3 (L) 13.8 - 17.3 [facility] g/dl [place] LAB IG# - [facility] 0.03 0 - 0.7 10e3/uL [facility] IG% - [facility] 0.4 0 - 0.9 % [facility] LYMPH # - [facility] 1.5 1.09 - 3.3 [facility] 10e3/ul [place] LAB LYMPH% - [facility] 22.0 20 - 40 % [facility] MEAN CORPUSCULAR HGB 29.6 27.6 - 33.0 pg [facility] ME D - [facility] LAB MEAN CORPUSCULAR HGB 33.3 32.8 - 36.4 [facility] CONC - [facility] g/dL CENTER LAB MEAN CELL VOLUME - 88.9 81 - 95 fl [facility] MONO # - [facility] 0.6 0.1 - 0.8 [facility] 10e3/uL [place] LAB MONO% - [facility] 8.3 0 - 12 % [facility] PLATELET COUNT 290 141 - 377 [facility] 10e3/ul [place] LAB RED BLOOD COUNT - 4.50 4.36 - 5.78 [facility] 10e3/ul [place] LAB RED CELL DISTRI WIDTH 14.2 <14.2 % [facility] LAB WHITE BLOOD COUNT - 6.7 4.0 - 10.4 [facility] 10e3/ul [place] LAB Specimen Performing Organization Address City/State/ZIP Code Phon e Number [facility] [address] [place], [place] [id number] [place] [address] LAB documented in this encounter Visit Diagnoses Not on filedocumented in this encounter Care Teams Insurance Claims Processor Relationship Specialty Start Date End Date None, Provider PCP - General 06/23/19 09/12/19 documented as of this encounter
--- OUTSIDE RECORDS SUMMARY | 2022-03-17 20:21 | XMS_ITS | Encounter Summary ---
:1965 Author Organization [facility] Address [address] [place] [address] Care Team Providers Name Role Phone None, Provider Primary Care Provider Unavailable Reason for Visit Reason Comments Penile Discharge 3-4 day hx penile discharge. Denies notifiication of specific STD. ? fever Encounter Details Date Type Department Care Team Description 06/23/2019 Hospital Encounter [facility] Hay Hebert MD [address] [place] [phone] Concern about STD in male without diagno sis (Primary Dx); Urgent Care - [facility], Provider, Dysuria [address] [address] Social History Tobacco Use Types Packs/Day Years [...] attachments cannot be sent through Care [email or web address] (Hebrew)documented in this encounter Medications at Time of Discharge Medication Sig Dispensed Refills Start Date End Date ferzacs-ilp-xzoir-tenof Take by mouth 0 09/27/2019 ALAFEN (GENVOYA) daily. [phone] mg tabletIndications: HIV infection lisinopril (PRINIVIL) 10 Take 10 mg by mouth 0 04/18/2020 mg tabletIndications: daily. hypertension tamsulosin (FLOMAX) 0.4 mg Take 0.4 mg by 0 02/15/2020 capsule mouth daily. documented as of this encounter Discharge Disposition Disposition Code Departure Means Destination Home or Self Care Car documented in this encounter ED Notes Graeme Najera MA - 06/23/2019 7795 EDT Blood drawn via butterfly needle per protocol, tiger tube(s) sent to lab per order. Crys Hebert MD - 06/23/2019 5960 EDT DOS: 06/23/2019 Chief Complaint Patient presents [...] Outpatient Medications Medication Sig Dispense Refill ??? wvktpdy-qop-mnbpu-tenof ALAFEN (GENVOYA) [phone] mg tablet Take by mouth daily. ??? lisinopril (PRINIVIL) 10 mg tablet Take 10 mg by mouth daily. ??? tamsulosin (FLOMAX) 0.4 mg capsule Take 0.4 mg by mouth daily. No Known Allergies There are no active problems to display for this patient. Past Medical History: Diagnosis Date ??? BPH (benign prostatic hyperplasia) ??? HIV (human immunodeficiency virus infection) ([facility]) ??? Hypertension Social History Tobacco Use [...] Bilirubin Neg Neg Ketones Neg Neg Specific [place] 1.025 1.001 - 1.035 Blood Neg Neg pH 6.0 4.6 - 8.0 Protein 1+ (A) Neg Urobilinogen 0.2 0.2 - 1.0 mg/dL Nitrite Neg Neg Leuk Esterase Trace (A) Neg Tech ID [id number] Radiology orders: None Imaging Results None No [...] of further medications. Upon departure from [facility], the patient's pain was 6 on a zero to ten scale. Any further pain treatment will be at the discretion of the provider following up with the patient based on their clinical assessment . Condition at departure from the [facility] : Good MDM 06/23/2019 16:28 [...] Visit Infectious Disease Lilian Rushing MD [address] [place] [address], [address] [place] [address] (Wo rk) documented as of this [...] EDT) Tests to be added URINE CULTURE [facility] [place] [id number] ([facility] problems CARE)Comment: LABORATORY SERVICES Performed at [facility], [place], [place] Specimen Other Performing Organization Address City/[facility]/ZIP Code Phon e Number [facility] [address] [place] [address] SERVICES (ABNORMAL) CHLAMYDIA/N. GONORRHOEAE AMPLIFIED RNA, URINE (06/23/2019 16:25 EDT) Pathologist Sig nature Chlamydia Result Negative [facility] GC Result Positive (AA) [facility] Specimen Other (qualifier value) - Urine Performing Organization Address City/[facility]/ZIP Code Phon e Number [facility] [address] [place] [address] SERVICES HEPATITIS C AB W REFLEX TO HCV RNA BY PCR (06/23/2019 16:25 EDT) Pathologist Sig nature Hep C Ab w Rfx PCR Negative Negative [facility] HCSCR2 LABORATORY SERVICES Specimen Blood specimen (specimen) - Blood Performing Organization Address City/[facility]/ZIP Code Phon e Number [facility] [address] [place] [address] SERVICES HEPATITIS B SURFACE ANTIGEN (06/23/2019 16:25 EDT) Pathologist Sig nature Hepatitis B Surface Negative Negative [facility] Antigen LABORATORY SERVICES Specimen Blood specimen (specimen) - Blood Performing Organization Address City/[facility]/ZIP [facility] Phon e Number [facility] [address] [place] [address] SERVICES SYPHILIS SEROLOGY (06/23/2019 16:25 EDT) Syphilis Serology NegativeComment: [facility] Reference Range: LABORATORY SERVICES Negative Specimen Blood specimen (specimen) - Blood Performing Organization Address City/[facility]/ZIP Code Phon e Number [facility] [address] [place] [address] SERVICES BACTERIAL CULTURE, URINE (06/23/2019 16:20 EDT) Pathologist Sig nature Result No growth [facility] LABOR[facility] Y SERVICES Specimen Urine Performing Organization Address [facility]/ZIP Code Phon e Number [facility] [address] [place] [address] SERVICES (ABNORMAL) URINALYSIS MICROSCOPIC ONLY (06/23/2019 16:20 EDT) WBC, UA 4 to 10 (A) 0 to 3 /HPF [facility] RBC, UA 0 to 2 0 to 2 /HPF [facility] Squam Epithel, UA None seen None seen [facility] /[facility] LAB[facility] SERVICES Hyaline Casts, UA < or = 10 < or = 10 [facility] /[facility] LABORATORY SERVICES Bacteria, UA None seen None seen [facility] /[facility] LABORATORY SERVICES UA Comment Sediment results [facility] Comment: LABORATORY are unreliable on SERVICES urines unrefrig >2hrs or refrig >8hrs. Performed at [facility], [place], [place] Specimen Urine (substance) - Urine Performing Organization Address [facility]/ZIP [facility] Phon e Number [facility] [address] [place] [address] SERVICES (ABNORMAL) POCT URINE DIPSTICK, [facility] (06/23/2019 16:18 EDT) Color LOGAN Yellow [facility] Clarity, UA Clear Clear [facility] Glucose Neg [facility] LABORATORY SERVICES Bilirubin Neg [facility]ATORY SERVICES Ketones Neg [facility] LABORATORY SERVICES Specific [place] 1.025 1.001 - 1.035 [facility] Blood Neg Neg [facility] pH 6.0 4.6 - 8.0 [facility] Protein 1+ (A) [facility] LABORATORY SERVICES Urobilinogen 0.2 0.2 - 1.0 [facility] mg/dL LABORATORY SERVICES Nitrite Neg Neg [facility] Leuk Esterase Trace (A) [facility] LABORATORY workers compensation attorney ID [id number]: [facility] Test performed at LABORATORY Urgent Care SERVICES Specimen Urine (substance) - Urine Performing Organization Address City/State/ZIP Code Phon e Number [facility] [address] [place] [address] SERVICES documented in this encounter Visit Diagnoses [...] mg by 0 02/15/2020 capsule mouth daily. fokrdxi-mbu-vveug-tenof Take by mouth 0 09/27/2019 ALAFEN (GENVOYA) daily. [phone] mg tabletIndications: HIV infection added in this [...] ine documented in this encounter Care Teams Hospital Educator Relationship Specialty Start Date End Date None, Provider PCP - General 06/23/19 09/12/19 documented as of this encounter
--- OUTSIDE RECORDS SUMMARY | 2022-03-17 20:21 | XMS_ITS | Encounter Summary ---
:1965 Author Organization [facility] Address [address] [place] [address] Care Team Providers Name Role Phone Marcy Alvarenga TANK TRUCK ENGINE MECHANIC Primary Care Provider [phone] Reason for Visit Reason Comments Other ASYMPTOMATIC HIV/AIDS Encounter Details Date Type Department Care Team Description 03/07/2020 Nurse Only [facility] Mobile Scre ening for viral [facility] Testing disea se (Primary Dx) - - Mobile Testing Department [address] [place] [address] Social History Tobacco Use Types [...] other viral disease, Z11.59 Nurse Encounter charge [id number] ampKevin sadler APRN - 03/07/2020 7069 EDT Swab obtained patient tolerated well. documented in this encounter Plan of Treatment Upcoming Encounters Date Type Specialty Care Team Description 04/14/2022 Office Visit Infectious Disease Lilian Rushing MD [address] [place] [address], [address] [place] [address] (Wo rk) documented as of this encounter Procedures Procedure Name Priority Date/Time Associated Comments Diagnosis COVID-19 TESTING Routine 03/07/2020 14:37 Results for this EDT procedure are i n the results section. SHIGA TOXINS 1 & 2 - Routine 03/07/2020 13:30 Res ults for this [facility] EDT procedure are i n the results section. URINALYSIS/COMPLETE - Routine 03/07/2020 13:30 Re sults for this [facility] EDT procedure are i n the results section. COMPLETE BLOOD COUNT Routine 03/07/2020 13:30 Res ults for this WITH DIFFERENTIAL EDT procedure are in (AUTO) the results section. HIV 1 RNA Routine 03/07/2020 13:30 Results for this QUANTITATION EDT procedure are i n the results section. documented in this encounter Results COVID-19 TESTING (03/07/2020 14:37 EDT) Performing Lab AB [address] [facility] LAb [facility] Comment: [facility] Is Patient Admitted or Awaiting Admission?:NO NOTE: RESULTS HAVE BEEN REFORMATTED PLEASE REVIEW RESULTS CAREFULLY THE LOCATION OF INFORMATION MAY HAVE CHANGED Test performed or referred by [facility] [address] [facility], [place] [address] COVID-19 rt-PCR Not Detected Negative [facility] Result Comment: [facility] Negative results do not preclude 2019-nCoV infection a nd should not be used as the sole basis for treatment or other patient management decisions. Negative results must be combined with clinical observations, patient history, and epidemiological information. This test was developed and its performance characteri stics determined by [facility]. It has not been cleared [...] by the FDA Performed on the [employer] Fast. Specimen Performing Organization Address City/[facility]/ZIP Code Phon e Number [facility] [address] [place], [place] [id number] [place] [address] LAB SHIGA TOXINS 1 & 2 - [facility] (03/07/2020 13:30 EDT) Pathologist [facility] E.COLI SHINGA E.COLI SHIGA TOXIN 1 [facility] TOXIN 1 [facility] NOT DETECTED [facility] E.COLI SHIGA TOXIN E.COLI SHIGA TOXIN 2 [facility] T 2 [facility] NOT DETECTED [facility] E.COLI [id number] [facility] NO SALMONELLA OR [facility] SHIGELLA ISOLATED [facility] NO CAMPYLOBACTER SP. [facility] ISOLATED [facility] Specimen Stool specimen (specimen) Performing Organization Address City/[facility]/ZIP [facility] Phon e Number [facility] [address] [place], [place] [id number] [place] [address] LAB (ABNORMAL) HIV 1 RNA QUANTITATION (03/07/2020 13:30 EDT) HIV-1 RNA QUANT - <20 (A) Undetected [facility] Comment: [facility] INFCE Result Units: copies/mL Result in [...] performed using the rafael HIV-1 test ([employer] with the rafael [employer] System. This test has been modified from the manager card's instructions. Its performance characteristics were determined by [facility] in a manner consistent with CLIA requirements. This test has not been cleared or approv ed by the U.S. Food and Drug Administration. Test Performed by: [place] [address] Manufacturing Engineer Automotive: Pritesh Mcgee M.D. Ph.D.; CLIA# [id number] Specimen Performing Organization Address City/State/[facility] Code Phon e Number [facility] [address] [place], [place] [id number] [place] [address] LAB URINALYSIS/COMPLETE - [facility] (03/07/2020 13:30 EDT) URINE APPEARANCE - Clear [facility]AR [facility] URINE BACTERIA - NEG [facility] LAB URINE BILIRUBIN - 1+ NEGATIVE [facility] DIPSTICK [facility] Comment: [facility] Unable to confirm positive urine bilirubin. If clinica l correlation is inconsistent, consider serum bilirubin. URINE BLOOD - [facility] Negative NEG [facility] URINE COLOR - [facility] Yellow YELLOW [facility] URINE GLUCOSE - Negative NEGATIVE [facility] DIPSTICK [facility] URINE KETONE - [facility] Negative NEGATIVE [facility] URINE LEUK ESTERASE Negative NEG [facility] LAB URINE MUCUS - [facility] FEW [facility] URINE NITRITE - Negative NEG [facility] DIPSTICK [facility] LAB URINE PH - [facility] 6.5 4.0 - 8.0 [facility] URINE PROTEIN - Negative NEG [facility] DIPSTICK [facility] LAB URINE RBC - [facility] 1-3 rbc/hpf [facility] URINE SPECIFIC 1.020 1.001 - 1.035 [facility] GRAVITY - [facility] LAB URINE SQUAMOUS RARE NEG #/hpf [facility] CELLS - [facility] LAB URINE UROBILINOGEN 0.2 0.2 - 1.0 [facility] - DIPSTICK - [facility] LAB URINE WBC - [facility] RARE NEG wbc/hpf [facility] Specimen Performing Organization Address City/State/ZIP Code Phon e Number [facility] [address] [place] [address] [facility] (ABNORMAL) COMPLETE BLOOD COUNT WITH DIFFERENTIAL (AUTO) (03/07/2020 13:30 EDT) Pathologist Sig nature Gran # 5.5 2.2 - 8.85 [facility] 10e3/uL [facility] BASO # - [facility] 0.03 0.01 - [address].11 [facility] 10e/uL [facility] BASO % - [facility] 0 0 - 2 % [facility] EOS # - [facility] 0.07 0.03 - 0.61 [facility] 10e3/ul [facility] EOS % - [facility] 1 0 - 5 % [facility] GRAN % - [facility] 61.0 40 - 80 % [facility] HEMATOCRIT - [facility] 39.2 (L) 39.5 - 50.2 % [facility] HEMOGLOBIN - [facility] 13.4 (L) 13.8 - 17.3 [facility] g/dl [facility] IG# - [facility] 0.08 0 - 0.7 10e3/uL [facility] IG% - [facility] 0.9 0 - 0.9 % [facility] LYMPH # - [facility] 2.2 1.09 - 3.3 [facility] 10e3/ul [facility] LYMPH% - [facility] 24.5 20 - 40 % [facility] MEAN CORPUSCULAR HGB 30.1 27.6 - 33.0 pg [facility] ME D - [facility] LAB MEAN CORPUSCULAR HGB 34.2 32.8 - 36.4 [facility] CONC [facility] g/dL [facility] MEAN CELL VOLUME - 88.1 81 - 95 fl [facility] MONO # - [facility] 1.1 (H) 0.1 - 0.8 [place] [id number] MONO% - [facility] 12.5 (H) 0 - 12 % [facility] PLATELET COUNT 390 (H) 141 - [address] LAB RED BLOOD COUNT - 4.45 4.36 - 5.78 [facility] 10e3/[facility] LAB RED CELL DISTRI WIDTH 13.2 <14.2 % [facility] WHITE BLOOD COUNT - 8.9 4.0 - 10.[address] LAB Specimen Performing Organization Address City/State/ZIP Code Phon e Number [facility] [address] [place] [address] [facility] documented in this encounter Visit Diagnoses Diagnosis Screening for viral disease - Primary Special screening examination for unspec ified viral disease documented in this encounter Care Teams Rn Telephone Triage Relationship Specialty Start Date End Date Marcy Alvarenga, PCP - General Family Medicine - Primary 1 11/13/18 TANK TRUCK ENGINE MECHANIC Care [address] [place] [phone] documented as of this encounter
--- OUTSIDE RECORDS SUMMARY | 2022-03-17 20:21 | XMS_ITS | Encounter Summary ---
:1965 Author Organization [facility] Address [address] [place] [address] Care Team Providers Name Role Phone None, Provider Primary Care Provider Unavailable Reason for Visit Reason Onset Date Comments Follow-up 07/04/2019 Encounter Details Date Type Department Care Team Description 07/04/2019 Telephone [facility] Betnia Hebert er Follow-up Care - January Carl jeri Lyons MD [address] [facility] [address] [place] [address] [facility] [phone] [place], [place] [address] (Wo rk) Social History [...] - Gena De Leon RN - 07/04/2019 7721 EDT [facility] reviewed labs and treatment elephone Encounter - Jose Juan Morejon 07/04/2019 0945 EDT [facility] [facility] calling to follow up on reportable disease from 06.23.19 documented in this encounter Plan of Treatment Upcoming Encounters Date Type Specialty Care Team Description 04/14/2022 Office Visit Infectious Disease Lilian Rushing MD [address] [place] [address], [address] [place] [address] (Wo rk) documented as of this encounter Visit Diagnoses Not on filedocumented in this encounter Care Teams Nuclear Reactor Operator Relationship Specialty Start Date End Date None, Provider PCP - General 06/23/19 09/12/19 documented as of this encounter
--- OUTSIDE RECORDS SUMMARY | 2022-03-17 20:21 | XMS_ITS | Encounter Summary ---
:1965 Author Organization [facility] Address [address] [place] [address] Care Team Providers Name Role Phone Marcy Alvarenga SMALL KICK PRESS OPERATOR Primary Care Provider [phone] Reason for Visit Reason Onset Date Comments Medications Refill 02/14/2020 Encounter Details Date Type Department Care Team Description 02/14/2020 Telephone [facility] Lilian uRshing MD Medications Refill Infectious Disease [address] [facility] [address] [facility] [place] [address] [place] [phone] (Wo rk) Social History Tobacco Use [...] Visit Infectious Disease Lilian Rushing MD [address] [place] [address] [address] [place] [address] (Wo rk) documented as of this encounter Visit Diagnoses Not on filedocumented in this encounter Care Teams Manager Local Relationship Specialty Start Date End Date Gil-Marcy Santos, PCP - General Family Medicine - Primary 1 11/13/18 SMALL KICK PRESS OPERATOR Care [address] [place] [address] [address] [place] [address] documented as of this encounter
--- OUTSIDE RECORDS SUMMARY | 2022-03-17 20:21 | XMS_ITS | Encounter Summary ---
:1965 Author Organization [facility] Address [address] [place] [address] Care Team Providers Name Role Phone Marcy Alvarenga TIRE ADJUSTER Primary Care Provider [phone] Encounter Details Date Type Department Care Team Description 03/07/2020 Lab Requisition [facility] Outr Resulting Lab, Pathology & Laboratory Provider [facility] [address] [place] [address] Social History Tobacco Use Types Packs/Day Years [...] Visit Infectious Disease Lilian Rushing MD [address] [place] [address], [address] [place] [address] (Wo rk) documented as of this encounter Procedures Procedure Name Priority Date/Time Associated Diagnosis Comme nts T CELL SUBSETS Routine 03/07/2020 13:30 EDT Resul ts for this procedure are i n the results section . documented in this encounter Results (ABNORMAL) IMMUNODEFICIENCY PANEL (03/07/2020 13:30 EDT) Pathologist Sig nature % CD3 75 62 - 87 % [facility] % CD4 33 (L) 35 - 63 % [facility] % CD8 37 (H) 10 - 35 % [facility] Absolute CD4 728 329-1,427 Cells/uL [facility] Specimen Blood - Venous blood (substance) Performing Organization Address City/State/ZIP Code Phon e Number [facility] [address] [place] [address] SERVICES documented in this encounter Visit Diagnoses Not on filedocumented in this encounter Additional Health Concerns Infection Onset Date Last Indicated Resolved Time MRSAComment: Hx of JILL-Nbkr-29/23/2020 08/29/2021 08/29/20 21 C. Stoner 12/31/21 documented as of this encounter Care Teams Mechanical Handyman Relationship Specialty Start Date End Date Gil-Marcy Santos, PCP - General Family Medicine - Primary 1 11/13/18 TIRE ADJUSTER Care [address] [place] [phone] documented as of this encounter
--- OUTSIDE RECORDS SUMMARY | 2022-03-17 20:21 | XMS_ITS | Encounter Summary ---
:1965 Author Organization [facility] Address [address] [place] [address] Care Team Providers Name Role Phone None, Provider Primary Care Provider Unavailable None, Provider Primary Care Provider Unavailable Encounter Details Date Type Department Care Team Description 05/30/2019 Historical Results [facility] - Lilian Rushing, Only [facility] Lab - Main [facility] [address] [place] [address] [address] [place] [address] [address], [place] [address] Social History Tobacco Use Types [...] Rushing MD [address] [facility] [place], [address] [place] [address] (Wo rk) documented as [...] Routine 05/30/2019 13:01 Resu lts for this [place] EDT procedure are i n the results section. documented in this encounter Results RUBELLA IGG ANTIBODY (05/30/2019 13:09 EDT) RUBELLA IGG Positive [facility] - [facility] Comment: [facility] Expected value: Positive The presence of Rubella IgG suggest immunity against r ubella Specimen Narrative [facility] - 14:32 EDT Does PT Have a Latex Allergy? NO Performing Organization Address [facility] Code Phon e [facility] [address] [place] [address] LAB VARICELLA IGG ANTIBODY (05/30/2019 13:09 EDT) Varicella IgG Ab PositiveComment: Negative [facility] Presumed immune to CENTER LAB Varicella infection. Specimen Narrative [facility] - 22:43 EDT Does PT Have a Latex Allergy? NO Performing Organization Address City/[facility]/ZIP Code Phon e [facility] [address] [place] [address] LAB MEASLES IGG AB (05/30/2019 13:09 EDT) Pathologist Sig nature RUBEOLA IGG ANTIBODY - Negative Negative [facility] D [facility] CENTER LAB Specimen Narrative [facility] - 22:43 EDT Does PT Have a Latex Allergy? NO Performing Organization Address City/State/ZIP Code Phon e [facility] [address] LAB MUMPS ANTIBODY IGG (05/30/2019 13:09 EDT) Pathologist Sig nature Mumps Ab, IgG, S PositiveComment: Negative [facility] Presumed immune to CENTER LAB Mumps infection. Specimen Narrative [facility] - 22:43 EDT Does PT Have a Latex Allergy? NO Performing Organization Address City/State/ZIP Code Phon e Number [facility] [address] [place] [address] [facility] MISCELLANEOUS TEST, [place] (05/30/2019 13:01 EDT) [facility] MISCELLANEOUS TEST - SEE BELOW () [facility] Comment: [facility] Test ? Result ?F lag ??Unit ?? RefValue ------ Fungitell, Serum ? <31 ? pg/mL ??<80 ? Interpretation: The Fungitell assay does not detect ce rtain fungal species such as the genus Cryptococcus (Mony et al. 1991) which produces very low levels of (1-3)-Gata-M-Tcskjw. The assay also does not detect th e Zygomycetes such as Absidia, Mucor and Rhizopus (Susan trinidad et al. 1994) which are not known to produce (1-3)-Seyx-W-Dcjmql. In addition, the yeast phase of Blastomyces dermatitidis produces little (1-3)-Qrzf-G-Biyepd and may not be detected by the [...] false positive results, interpret positive [facility] provided in pour-off tubes with [...] for these modifica tions were determined by [facility]. If sample result is greater than 500 pg/mL, physician may order a titer of the sample. Please contact [facility] if you would l kristi to order a retest of this sample to obtain an actual v alue. Samples are held for 1 week after initial testing date . Test Performed by: [facility], Interface [address] [place] [address] Specimen Performing Organization Address City/State/ZIP Code Phon e Number [facility] [address] LAB documented in this encounter Visit Diagnoses Not on filedocumented in this encounter Care Teams Delivery Driver Relationship Specialty Start Date End Date None, Provider PCP - General 04/22/19 06/22/19 None, Provider PCP - General 06/23/19 09/12/19 documented as of this encounter
--- OUTSIDE RECORDS SUMMARY | 2022-03-17 20:21 | XMS_ITS | Encounter Summary ---
:1965 Author Organization [facility] Address [address] [place] [address] Care Team Providers Name Role Phone Marcy Alvarenga BUSINESS OFFICE TECHNOLOGY INSTRUCTOR Primary Care Provider [phone] Reason for Visit Reason Comments Pain Encounter Details Date Type Department Care Team Description 12/05/2019 Office Visit [facility] [place] Bravo thritis of left [facility] Orthopedics & PRINCE Diaz knee (Primary Dx) Sport Medicine [address], [facility] [address] [place] [address] [place], [place] [address] (Wo rk) Social History Tobacco Use Types [...] the care of infectious disease here at [facility] for ongoing care of HIV. He has an appointment with Dr. Rushing later in the day today. He states that he has significant knee pain, every once in a while it will flare, and become swollen, difficult to walk on. 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 Taking care of his aging parents in [place]. He denies any prior history of injury [...] hyperplasia) ??? HIV (human immunodeficiency virus infection) ([facility]) ??? Hypertension Social History Tobacco Use ??? [...] swab 1 nael applied topically PRN ??? nvfryug-pty-emvgf-tenof ALAFEN (GENVOYA) [phone] mg tablet Take 1 Tab by mouth [...] Visit Infectious Disease Lilian Rushing MD [address] [facility], [address] [place] [address] (Wo rk) documented as of this encounter Procedures Procedure Name Priority Date/Time Associated Diagnosis Comme nts LDL CHOL DIRECT - Routine 12/05/2019 16:30 Arthritis of left R esults for this [facility] EST knee procedure are i n the results section. documented in this encounter Results LDL CHOL DIRECT - [facility] (12/05/2019 16:30 EST) LDL CHOLESTEROL 96 mg/dL [facility] Comment: [facility] The National Cholesterol Education Program Adult Treat ment Panel III (NCEP-ATP III) provides the following classifications of LDL: Category ? mg/dl Optimal ?<100 ? Near Optimal ? 100-129 Borderline High ?130-159 High ? 160-189 Very High ?> or = 190 Specimen Performing Organization Address City/State/ZIP Code Phon e Number [facility] [address] [place], [place] [phone] [place] [address] LAB documented in this encounter Visit Diagnoses Diagnosis Arthritis of left knee - Primary Unspecified arthropathy, lower leg documented in this encounter Care Teams Bilingual Manager Relationship Specialty Start Date End Date Marcy Alvarenga, PCP - General Family Medicine - Primary 1 11/13/18 BUSINESS OFFICE TECHNOLOGY INSTRUCTOR Care [address] [place] [phone] documented as of this encounter
--- OUTSIDE RECORDS SUMMARY | 2022-03-17 20:21 | XMS_ITS | Encounter Summary ---
:1965 Author Organization [facility] Address [address] [place] [address] Care Team Providers Name Role Phone Marcy Alvarenga DOCUMENT PREPARER MICROFILMING Primary Care Provider [phone] Reason for Visit Reason Onset Date Comments Billing Question 11/22/2019 Encounter Details Date Type Department Care Team Description 11/22/2019 Telephone [facility] Lilian Rushing MD Billing Question Infectious Disease 130 [facility] 130 [facility]-, [address] [place], [place] [address] [place] [phone] (Wo rk) Social History Tobacco Use Types [...] Encounter - Aissatou Iraheta RN - 11/30/2019 0804 EST Pt has appt tomorrow. I will [...] Visit Infectious Disease Lilian Rushing MD [address] [place] [address] [address] [place] [address] (Wo rk) documented as of this encounter Visit Diagnoses Not on filedocumented in this encounter Care Teams General Education Professor Relationship Specialty Start Date End Date Gil-Marcy Santos, PCP - General Family Medicine - Primary 1 11/13/18 DOCUMENT PREPARER MICROFILMING Care [address] [place] [address] 2 [place] [address] documented as of this encounter
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
--- OUTSIDE RECORDS SUMMARY | 2022-03-17 20:21 | XMS_ITS | Encounter Summary ---
:1965 Author Organization [facility] Address [address] [place] [address] Care Team Providers Name Role Phone None, [...] Visit Infectious Disease Lilian Rushing MD [address] [place] [address], [address] [place] [address] (Wo rk) documented as of this encounter Visit Diagnoses Not on filedocumented in this encounter Care Teams Mixer Operator Helper Hot Metal Relationship Specialty Start Date End Date None, Provider PCP - General 06/23/19 09/12/19 documented as of this encounter
--- OUTSIDE RECORDS SUMMARY | 2022-03-17 20:21 | XMS_ITS | Encounter Summary ---
:1965 Author Organization [facility] Address [address] [place] [address] Care Team Providers Name Role Phone None, Provider Primary Care Provider Unavailable None, Provider Primary Care Provider Unavailable Encounter Details Date Type Department Care Team Description 04/28/2019 Historical Results [facility] - Lilian Rushing, Only [facility] Lab - Main [facility] [address] [facility] [address] [place] [address] MOB-C, [place] [address] Social History Tobacco Use [...] Visit Infectious Disease Lilian Rushing MD [address] [facility] [address], [address] [place] [address] (Wo rk) documented [...] nature ABSOLUTE NEUTROPHIL 4.4 2.2 - 8.85 [facility] COUN - [facility] 10e3/uL [facility] BASO # - [facility] 0.02 0.01 - 0.11 [facility] 10e/uL [facility] BASO % - [facility] 0 0 - 2 % [facility] LAB EOS # - [facility] 0.05 0.03 - 0.61 [facility] 10e3/ul [facility] EOS % - [facility] 1 0 - 5 % [facility] LAB GRAN % - [facility] 62.2 40 - 80 % [facility] LAB HEMATOCRIT - [facility] 39.9 39.5 - 50.2 % [facility] LAB HEMOGLOBIN - [facility] 13.3 (L) 13.8 - 17.3 [facility] g/dl [facility] IG# - [facility] 0.02 0 - 0.7 10e3/uL [facility] IG% - [facility] 0.3 0 - 0.9 % [facility] LAB LYMPH # - [facility] 1.8 1.09 - 3.3 [facility] 10e3/ul [facility] LYMPH% - [facility] 25.2 20 - 40 % [facility] LAB MEAN CORPUSCULAR HGB 30.0 27.6 - 33.0 pg [facility] ME D - [facility] CENTER LAB MEAN CORPUSCULAR HGB 33.3 32.8 - 36.4 [facility] CONC - [facility] g/dL [facility]ENTER LAB MEAN CELL VOLUME - 89.9 81 - 95 fl [facility] MONO # - [facility] 0.8 0.1 - 0.8 [facility] 10e3/uL [facility] MONO% - [facility] 11.3 0 - 12 % [facility] LAB PLATELET COUNT 330 141 - 377 [facility] 10e3/ul [facility] RED BLOOD COUNT - 4.44 4.36 - 5.78 [facility] 10e3/ul CENTER LAB RED CELL DISTRI WIDTH 13.2 <14.2 % [facility] CENTER LAB WHITE BLOOD COUNT - 7.1 4.0 - 10.4 [facility] 10e3/ul CENTER LAB Specimen Narrative [facility] LAB - 019 13:58 EDT Does PT Have a Latex Allergy? NO Performing Organization Address [facility] Code Phon e Number [facility] [address] LAB (ABNORMAL) IMMUNODEFICIENCY PANEL (04/28/2019 13:43 EDT) % CD3 74 62 - 87 % [facility] LAB % CD4 30 (A) 35 - 63 % [facility] LAB % CD8 38 (A) 10 - 35 % [facility] LAB Absolute CD4 531 329 - 1,427 [facility] Comment: cells/uL [facility] LAB Among the CD3+ T-cells is [...] Cota Test performed or referred by The [address] [address] Specimen Narrative [facility] LAB - 019 19:31 EDT Does PT Have a Latex Allergy? NO Performing Organization Address City/State/ZIP Code Phon e Number [facility] [address] [place] [address] [facility] LAB (ABNORMAL) BASIC METABOLIC PANEL (BMP) (04/28/2019 13:42 EDT) BUN - [facility] 20 10 - 26 mg/dL [facility] LAB CALCIUM - [facility] 9.4 8.5 - 10.5 [facility] mg/dL [facility] LAB Chloride 103 96 - 110 [facility] mmol/L [facility] LAB CO2 Total 28 21 - 32 mEq/L [facility] LAB CREATININE 0.88 0.66 - 1.25 [facility] mg/dL [facility] LAB eGFR >60 [facility] Comment: MED CENTER LAB Chronic renal impairment is defined as GFR <60 Multiply result by 1.210 for patients . Anion Gap 8 0 - 18 [facility] LAB GLUCOSE - [facility] 117 (H) 70 - 100 mg/dL [facility] LAB Potassium 4.5 3.5 - 5.0 [facility] mEq/L [facility] Sodium 139 136 - 145 [facility] mEq/L [facility] LAB Specimen Narrative [facility] LAB - 019 14:15 EDT Does PT Have a Latex Allergy? NO Performing Organization Address City/State/ZIP Code Phon e Number [facility] [address] [place] [address] [facility] documented in this encounter Visit Diagnoses Not on filedocumented in this encounter Care Teams Supervisor Pipeline Maintenance Relationship Specialty Start Date End Date None, Provider PCP - General 04/22/19 06/22/19 None, Provider PCP - General 06/23/19 09/12/19 documented as of this encounter
--- OUTSIDE RECORDS SUMMARY | 2022-03-17 20:21 | XMS_ITS | Encounter Summary ---
:1965 Author Organization [facility] Address [address] [place] [address] Care Team Providers Name Role Phone None, [...] Type Department Care Team Description 06/23/2019 Emergency [facility] Aissatou Morrison P A-Nikkie [address] [facility], [address] [place] [address] Examination, Emergency Department Emergency, MD Celia medicolegal ([facility] Dx) [address] [place] [address] Social History Tobacco Use Types [...] Sig Dispensed Refills Start Date End Date fnskehj-qzz-ekwob-tenof Take by mouth 0 09/27/2019 ALAFEN (GENVOYA) daily. [phone] mg tabletIndications: HIV infection lisinopril (PRINIVIL) 10 [...] with ??? Independent Blood Draw Arrives with [facility] for evidentiary blood draw. Pt states he [...] Visit Infectious Disease Lilian Rushing MD [address] [place] [address], [address] [place] [address] (Wo rk) documented as of this encounter Visit Diagnoses Diagnosis Examination, medicolegal - Primary Examination for medicolegal reason documented in this encounter Care Teams General Production Manager Relationship Specialty Start Date End Date None, Provider PCP - General 06/23/19 09/12/19 documented as of this encounter
--- OUTSIDE RECORDS SUMMARY | 2022-03-17 20:21 | XMS_ITS | Encounter Summary ---
:1965 Author Organization [facility] Address [address] [place] [address] Care Team Providers Name Role Phone None, Provider Primary Care Provider Unavailable Reason for Visit Reason Onset Date Comments Social Work 04/27/2019 Encounter Details Date Type Department Care Team Description 04/27/2019 Telephone [facility] Infectious Molly Gibson LICSW Social Work Disease - [facility] s [address] [place] [address] Social History Tobacco Use Types [...] Office Visit Infectious Disease Lilian Rushing MD [address] [place] [address], [address] [place] [address] (Wo rk) documented as of this encounter Visit Diagnoses Not on filedocumented in this encounter Care Teams Slot Service Specialist Relationship Specialty Start Date End Date None, Provider PCP - General 04/22/19 06/22/19 documented as of this encounter
--- OUTSIDE RECORDS SUMMARY | 2022-03-17 20:21 | XMS_ITS | Encounter Summary ---
:1965 Author Organization [facility] Address [address] [place] [address] Care Team Providers Name Role Phone Marcy Alvarenga FIELD ARTILLERY OPERATIONS SPECIALIST Primary Care Provider [phone] Reason for Referral Consult (Routine) - Closed Specialty Diagnoses / Procedures Referred By Contact Refer red To Contact Orthopedic Surgery Diagnoses Injury of left knee, initial encounter Sobia Brower MD [facility] [address] [place] [address] [address] [place] [address] [place] [address] Referral ID Status Reason Start Date Expiration Date Visits V isits Requested Authorized [id number] Closed Specialty 11/20/2019 1 1 Services Required [...] Type Department Care Team Description 11/20/2019 Walk-In [facility] - Sobia Brower, Inj ury of left knee, initial encounter (Primary Dx); [facility] - MD Instability of left knee joint [place] [address] [place] [address] Road [phone] [address] [place] [address] Social History Tobacco Use Types Packs/Day Years [...] Progress Notes Sobia Brower MD - 11/20/2019 4225 EST [facility] Chief Complaint(s): Chief Complaint Patient [...] upper body with the left knee planted. [place] a stretch and a pop and then [...] Infectious Disease Leyse, Lilian L, MD [address] [facility], [address] [place] [address] (Wo rk) Scheduled Orders [...] CC: ? Transcribed Date/Time: 11/20/2019 (1530) ? Solution Make Up Operator: ? Printed Date/Time: 11/20/2019 (15 30) ? [...] Ashtyn Seaman MD CC: Transcribed Date/Time: 11/20/2019 (0722 ) Solution Make Up Operator: Printed Date/Time: 11/20/2019 (9792) PAGE 1 Signed Report Performing Organization Address City/State/ZIP Code Phon e Number [facility] documented in this encounter Visit Diagnoses Diagnosis Injury of left knee, initial encounter - Primary Instability of left knee joint documented in this encounter Care Teams Ornamental Metalwork Designer Relationship Specialty Start Date End Date Gil-Marcy Santos, PCP - General Family Medicine - Primary 1 11/13/18 FIELD ARTILLERY OPERATIONS SPECIALIST Care [address] [place] [phone] documented as of this encounter
--- OUTSIDE RECORDS SUMMARY | 2022-03-17 20:21 | XMS_ITS | Encounter Summary ---
:1965 Author Organization [facility] Address [address] [place] [address] Care Team Providers Name Role Phone Marcy Alvarenga PANEL FLOW MACHINE OPERATOR Primary Care Provider [phone] Reason for Visit Reason Comments Labs Only Encounter Details Date Type Department Care Team Description 03/07/2020 Nurse Only [facility] - Nurse, [facility] En[place] er for immunization (Primary Dx); [facility] Infectious Infectious Disease Asympt omatic HIV infection ([facility]); Disease Medication monitoring encoun ter; [address] [place], [place] [address] Social History Tobacco Use Types Packs/Day Years [...] mg tablet Clindamycin Phosphate 1 % swab bsuaqxr-itz-lkepi-tenof ALAFEN (GENVOYA) [phone] mg tablet lisinopril (PRINIVIL) 10 mg tablet [...] testing. He has a flight planned to [place] tomorrow. I advised he self-isolate until he gets his results back. He verbalized understanding but stated he really needs to take this flight down to [place]. Will try to get testing set up today at mobile clinic. Pt is aware the scheduling team will be calling him. Aissatou Iraheta RN [facility] Infectious Disease Office: [phone] CC: Lilian Rushing MD documented in this encounter Plan of Treatment Upcoming Encounters Date Type Specialty Care Team Description 04/14/2022 Office Visit Infectious Disease Lilian Rushing MD [address] [place] [address], [address] [place] [address] (Wo rk) Scheduled Orders [...] % CD3 75 62 - 87 % [facility] % CD4 33 (A) 35 - 63 % [facility] % CD8 37 (A) 10 - 35 % [facility] Absolute CD4 728 329-1,427 [facility] Comment: Cells/uL [facility] Test performed or referred by The [address] [address] Specimen Blood - Venous blood (substance) Performing Organization Address [facility] Phon e Number [facility] [address] [place] [address] [facility] LAB (ABNORMAL) BASIC METABOLIC PANEL (BMP) (03/07/2020 13:30 EDT) BUN - [facility] 31 (H) 10 - 26 mg/dL [facility] CALCIUM - [facility] 9.6 8.5 - 10.5 [facility] mg/dL [facility] Chloride 99 96 - 110 [facility] mmol/L [facility] CO2 Total 27 21 - 32 mEq/L [facility] CREATININE 1.03 0.66 - 1.25 [facility] mg/dL [facility] eGFR >60 [facility] Comment: MED CENTER LAB Chronic renal impairment is defined as GFR <60 Multiply result by 1.210 for patients . Anion Gap 8 0 - 18 [facility] GLUCOSE - [facility] 103 (H) 70 - 100 mg/dL [facility] Potassium 4.5 3.5 - 5.0 [facility] mEq/L [facility] Sodium 134 (L) 136 - 145 [facility] mEq/L [facility] Specimen Blood - Venous blood (substance) Performing Organization Address [facility] Phon e Number [facility] [address] [place] [address] [facility] documented in this encounter [...] 03/07/2020 documented in this encounter Care Teams Mother'S Helper Relationship Specialty Start Date End Date Gil-Marcy Santos, PCP - General Family Medicine - Primary 1 11/13/18 PANEL FLOW MACHINE OPERATOR Care [address] [place] [phone] documented as of this encounter
--- OUTSIDE RECORDS SUMMARY | 2022-03-17 20:21 | XMS_ITS | Encounter Summary ---
:1965 Author Organization [facility] Address [address] [place] [address] Care Team Providers Name Role Phone Marcy Alvarenga OPTICAL GLASS ETCHER Primary Care Provider [phone] Reason for Visit Reason Comments New Patient Visit Plantar warts Consult (Routine/Next Available) - Specialty Report Received Specialty Diagnoses / Procedures Referred By Contact Refer red To Contact Orthopedic Surgery Diagnoses Plantar wart of left foot Marcy Alvarenga [facility] [place] [facility], OPTICAL GLASS ETCHER [address], [address] [place] [address] [address] [place] [address] [place] [address] Referral ID Status Reason Start Expiration Visits Visits Date Date Requested Authorized [id number] Specialty Specialty 05/01/2020 1 1 Report Services Received Required Encounter Details Date Type Department Care Team Description 05/18/2020 Office Visit [facility] - Perlita Mcmahon P lantar verruca (Primary Dx); [facility] & DPM Digital mucous cyst of toe Podiatry [address] [place] [address] [place] [address] [address] [place] [address] [place] [address] (Wo rk) Social History Tobacco [...] swab 1 nael applied topically PRN ??? jrogbhs-hdj-lfdzr-tenof ALAFEN (GENVOYA) [phone] mg tablet Take 1 Tab by mouth [...] Visit Infectious Disease Lilian Rushing MD [address] [place] [address] [address] [place] [address] (Wo rk) documented as of this encounter Visit Diagnoses Diagnosis Plantar verruca - Primary Plantar wart Digital mucous cyst of toe documented in this encounter Care Teams Grips Relationship Specialty Start Date End Date Gil-Marcy Santos, PCP - General Family Medicine - Primary 1 11/13/18 OPTICAL GLASS ETCHER Care [address] [place] [address] 2 [place] [address] documented as of this encounter
--- OUTSIDE RECORDS SUMMARY | 2022-03-17 20:21 | XMS_ITS | Encounter Summary ---
:1965 Author Organization [facility] Address [address] [place] [address] Care Team Providers Name Role Phone Marcy Alvarenga KOSHER DIETARY SERVICE MANAGER Primary Care Provider [phone] Reason for Visit Reason Onset Date Comments Medications Refill 09/26/2019 Encounter Details Date Type Department Care Team Description 09/26/2019 Telephone [facility] Lilian Rushing MD Medications Refill Infectious Disease 130 [facility] 130 [facility] [address] [place] [address] [place] [phone] [phone] (Wo rk) Social History Tobacco Use [...] Sig Dispensed Refills Start Date End Date iqcicsr-rca-tyxbn-tenof Take 1 Tab by mouth 90 Tab 1 12/201810/17/2019 ALAFEN (GENVOYA) daily for 90 days. [phone] mg tabletIndications: HIV infection documented in this encounter Miscellaneous Notes Telephone Encounter - Aissatou Iraheta RN - 09/29/2019 1609 EST Confirmed with Aissatou at [facility] specialty pharmacy they received the rx and its in the process of being verified by the pharmacist for shipment. elephone Encounter - Aissatou Iraheta RN - 09/28/2019 1319 EST rx manually faxed this morning. elephone Encounter - Aissatou Iraheta RN - 09/27/2019 1653 EST Called customer service line for [facility] specialty pharmacy. They gave me a fax of [phone] to send new rx;s too. Rx created [...] also [place] Medicaid insurance. His insurance from [place] runs out at the end of the month. I said I will try and figure the pharmacy out in the meantime and get the paperwork together so we can start working on it. elephone Encounter - Flaquita Do - 09/26/2019 1501 EST [facility] specialty phamracy-pt states that he needs a [...] Visit Infectious Disease Lilian Rushing MD [address] [facility] [address] [place] [address] (Wo rk) documented as of this encounter Visit Diagnoses Not on filedocumented in this encounter Discontinued Medications Medication Sig Discontinue Reason Start Date End Date oqcgthu-weh-umtkw-tenof Take by mouth Reorder 12/2018 ALAFEN (GENVOYA) daily. [phone] mg tabletIndications: HIV infection documented as of this encounter Care Teams Garage Worker Relationship Specialty Start Date End Date Marcy Alvarenga, PCP - General Family Medicine - Primary 1 11/13/18 KOSHER DIETARY SERVICE MANAGER Care [address] [place] [address] 2 [place] [address] documented as of this encounter
--- OUTSIDE RECORDS SUMMARY | 2022-03-17 20:21 | XMS_ITS | Encounter Summary ---
:1965 Author Organization [facility] Address [address] [place] [address] Care Team Providers Name Role Phone Marcy Alvarenga LUMBER YARD WORKER Primary Care Provider [phone] Encounter Details Date Type Department Care Team Description 02/15/2020 Orders Only [facility] - [facility] [place] Geoff Alvarenga Family Medicine - Be nicol Ruiz LUMBER YARD WORKER [address] [facility] [place] [address] [place] [address] [place] [address] (Wo rk) Social History [...] Disease Lilian Rushing MD [address] [facility], [address] [place], [place] [phone] (Wo rk) documented as of this encounter Visit Diagnoses Not on filedocumented in this encounter Discontinued Medications Medication Sig Discontinue Reason Start Date End Date tamsulosin (FLOMAX) 0.4 Take 0.4 mg by Reorder mg capsule mouth daily. documented as of this encounter Care Teams Maitre D Relationship Specialty Start Date End Date Marcy Alvarenga, PCP - General Family Medicine - Primary 1 11/13/18 LUMBER YARD WORKER Care [address] [facility] 2 [place] [address] documented as of this encounter
--- OUTSIDE RECORDS SUMMARY | 2022-03-17 20:21 | XMS_ITS | Encounter Summary ---
:1965 Author Organization [facility] Address [address] [place] [address] Care Team Providers Name Role Phone Marcy Alvarenga SENIOR NATIONAL ACCOUNT MANAGER Primary Care Provider [phone] Reason for Visit Reason Comments Follow-up 3m f/u HIV Encounter Details Date Type Department Care Team Description 06/04/2020 Office Visit [facility] - Lilian Rushing Asy mptomatic HIV infection ([facility]) (Primary Dx); [facility] [place] [place] Infectious MD Encounter for immunization; Disease [address] [facility] Medication monitoring encounter [address] [facility], [address] [place] [address] [place] [phone] [phone] Social History Tobacco Use Types Packs/Day [...] Sig Dispensed Refills Start Date End Date zkhlxns-pla-clpkm-tenof Take 1 Tab by mouth 90 Tab 1 07/202012/03/2020 ALAFEN (GENVOYA) daily for 90 days. [phone] mg tabletIndications: HIV infection documented in this [...] increasing creatinine.Remote h/o coccidioidomycosis. He move to [facility] from [place] in the summer of 2018 to take care of his aging parents, but is planning on moving at some point. 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 He is now set up with [facility] for his HIV meds. 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 Found out he needs a knee replacement. He was flying down to [place] to move his belonging out of his brothers house into storage. He c/o of ongoing diarrhea, culture returned negative. Covid test was also negative. He was not sexually active and the Genvoya was going fine. Today, he says his work is open again so he's been working two days a week. No other travel besides [place] as mentioned the last time. No sexual [...] Additions to the Medication List Medications ??? ofxwspn-ely-fuadq-tenof ALAFEN (GENVOYA) [phone] mg tablet Sig: Take 1 Tab by mouth daily for 90 days. Dispense: 90 Tab Refill: 1 Lilian Rushing MD, MPH [facility] [place] [place] Infectious Disease Office: [phone] documented in this encounter Miscellaneous Notes Result [...] Visit Infectious Disease Lilian Rushing MD [address] [facility], [address] [place] [address] (Wo rk) Scheduled Orders Name Type Priority Associated Diagnoses Order S chedule HIV 1 RNA QUANTITATION Lab Routine Asymptomatic HIV O rdered: 06/04/2020 infection ([facility]) URINE CHEMICAL (DIP) & Lab Routine Asymptomatic HIV O rdered: 06/04/2020 SEDIMENT (MICRO) WITHOUT infection ([facility]) REFLEX TO CULTURE documented as of this encounter Procedures Procedure Name Priority Date/Time Associated Diagnosis Comme nts URINALYSIS - [facility] [place] [place] Routine 06/04/2020 16:06 Asymptomatic HIV Re sults for this EDT infection ([facility]) procedur e are in the results section. HIV 1 RNA QUANTITATION Routine 06/04/2020 16:06 Asymptomatic H IV Results for this EDT infection ([facility]) procedur e are in the results section. COMPREHENSIVE Routine 06/04/2020 16:06 Asymptomatic HIV Result s for this METABOLIC PANEL (CMP) EDT infection ([facility]) procedure are in the results section. documented in this encounter Results HIV 1 RNA QUANTITATION (06/04/2020 16:06 EDT) [facility] HIV-1 RNA QUANT - Undetected Undetected [facility] Comment: [facility] INFCE Result Units: copies/mL Result in log copies/mL is Undetected. ADDITIONAL INFORMATION ------ The quantification range of this assay is 20 to 10,000 ,000 copies/mL (1.30 log to 7.00 log copies/mL). Testing wa s performed using the rafael HIV-1 test ([employer] with the rafael [id number] System. This test has been modified from the marine engineering technicians's instructions. Its performance characteristics were determined by [facility] in a manner consistent with CLIA requirements. This test has not been cleared or approv ed by the U.S. Food and Drug Administration. Test Performed by: [facility] - [address] [address] Crown Wheel Assembler: Pritesh Mcgee M.D. Ph.D.; CLIA# [id number] Specimen Performing Organization Address City/[facility]/ZIP Code Phon e Number [facility] [address] [place] [id number] URINALYSIS - [facility] [place] (06/04/2020 16:06 EDT) Pathologist Sig nature URINE APPEARANCE - Clear CLEAR [facility] URINE BILIRUBIN - Negative NEGATIVE [facility] DIPSTICK [facility] URINE BLOOD - [facility] [place] Negative NEG [facility] URINE COLOR - [facility] [place] [place] Yellow YELLOW [facility] URINE GLUCOSE - Negative NEGATIVE [facility] DIPSTICK [facility] URINE KETONE - [facility] [place] [place] Negative NEGATIVE [facility] URINE LEUK ESTERASE - Negative NEG [facility] URINE NITRITE - Negative NEG [facility] DIPSTICK [facility] URINE PH - [facility] [place] [place] 6.5 4.0 - 8.0 [facility] URINE PROTEIN - Negative NEG [facility] DIPSTICK [facility] URINE SPECIFIC GRAVITY 1.020 1.001 - 1.035 [facility] M ED [facility] URINE UROBILINOGEN - 0.2 0.2 - 1.0 [facility] DIPSTICK [facility] Specimen Performing Organization Address City/[facility]/ZIP Code Phon e Number [facility] [address] [place] [address] (ABNORMAL) COMPREHENSIVE METABOLIC PANEL (CMP) (06/04/2020 16:06 EDT) ALBUMIN - [facility] [place] 3.5 3.4 - 4.9 [facility] g/dL [facility] ALKALINE 69 38 - 126 U/L [facility] PHOSPHATASE - [facility] BILIRUBIN TOTAL <0.2 (L) 0.2 - 1.3 [facility] mg/dL [facility] BUN - [facility] [place] [place] 25 10 - 26 mg/dL [facility] CALCIUM - [facility] [place] [place] 9.2 8.5 - 10.5 [facility] mg/dL [facility] Chloride 102 96 - 110 [facility] mmol/L [facility] CO2 Total 29 21 - 32 mEq/L [facility] CREATININE 0.91 0.66 - 1.25 [facility] mg/dL [facility] eGFR >60 [facility] Comment: [facility] Chronic renal impairment is defined as GFR <60 Multiply result by 1.210 for patients . Anion Gap 8 0 - 18 [facility] GLUCOSE - [facility] [place] [place] 97 70 - 100 [facility] mg/dL [facility] Potassium 4.6 3.5 - 5.0 [facility] mEq/L [facility] Sodium 139 136 - 145 [facility] mEq/L [facility] TOTAL PROTEIN - 6.3 6.2 - 8.2 [facility] gm/dL [facility] SGOT/AST - [facility] [place] [place] 22 17 - 59 U/L [facility] SGPT/ALT - [facility] [place] [place] 26 0 - 50 U/L [facility] Specimen Blood - Venous blood (substance) Performing Organization Address City/State/ZIP Code Phon e Number [facility] [address] [place] [address] documented in this encounter Visit Diagnoses Diagnosis Asymptomatic HIV infection (HCC) - Prima ry Asymptomatic human immunodeficiency viru s (HIV) infection status Encounter for immunization Need for other specified prophylactic va ccination against single bacterial disease Medication monitoring encounter Encounter for therapeutic drug monitorin g documented in this encounter Discontinued Medications Medication Sig Discontinue Reason Start Date End Date rwbxmfb-ljr-ewstz-tenof Take 1 Tab by mouth Reorder 04/18/2020 06/04/2020 ALAFEN (GENVOYA) daily for 90 days. [phone] mg tabletIndications: HIV infection documented as of this encounter Orders Immunization/Injection Count Last Ordered Date First O rdered Date SHINGRIX (ZOSTER VACCINE, RECOMBINANT) IM 1 2019 documented in this encounter Care Teams Real Estate Subagent Relationship Specialty Start Date End Date Marcy Alvarenga, PCP - General Family Medicine - Primary 1 11/13/18 SENIOR NATIONAL ACCOUNT MANAGER Care [address] [place] [phone] documented as of this encounter
--- OUTSIDE RECORDS SUMMARY | 2022-03-17 20:21 | XMS_ITS | Encounter Summary ---
:1965 Author Organization [facility] Address [address] [place] [address] Care Team Providers Name Role Phone Marcy Alvarenga PERFORMANCE REPORTER Primary Care Provider [phone] Reason for Visit Reason Onset Date Comments Medications Refill 04/18/2020 Encounter Details Date Type Department Care Team Description 04/18/2020 Telephone [facility] Lilian Rushing MD Medications Refill Infectious Disease 130 [facility] [address] [facility] [address] [place], [place] [address] [place] [address] [phone] (Wo rk) Social History Tobacco Use [...] 90 Cap 3 04/18/2020 05/01/2021 capsule daily. wydocsm-ffr-gokct-tenof Take 1 Tab by mouth 90 Tab 1 06/04/2020 ALAFEN (GENVOYA) daily for 90 days. [phone] mg tabletIndications: HIV infection documented in this encounter Miscellaneous Notes Telephone Encounter - Aissatou Iraheta RN - 04/19/2020 0930 EDT Left detailed message with the below information. I advised he call PCP at [phone] to set up an appt. elephone Encounter [...] all. He said they should go to [facility] in [place]. If Dr. Rushing doesn't rx all these can you call patient to discuss he may be a little confused about his meds. [phone] signed by Shefali Hamm at 04/18/2020 9:28 EDTdocumented in this encounter Plan of Treatment Upcoming Encounters Date Type Specialty Care Team Description 04/14/2022 Office Visit Infectious Disease Lilian Rushnig MD [address] [place] [address], [address] [place], [place] [phone] (Wo rk) documented as of this encounter Visit Diagnoses Not on filedocumented in this encounter Discontinued Medications Medication Sig Discontinue Reason Start Date End Date piukjbq-nvd-cxpmp-tenof Take 1 Tab by Reorder 10/17/2019 ALAFEN (GENVOYA) mouth daily for 90 [phone] mg days. tabletIndications: HIV infection tamsulosin (FLOMAX) 0.4 mg Take 1 Cap by Reorder 02/15/2020 04/18/2020 capsule mouth daily. lisinopril (PRINIVIL) 10 Take 10 mg by Reorder mg tabletIndications: mouth daily. hypertension documented as of this encounter Care Teams Records Officer Relationship Specialty Start Date End Date Marcy Alvarenga, PCP - General Family Medicine - Primary 1 11/13/18 PERFORMANCE REPORTER Care [address] [place] [address] [address] [place] [address] documented as of this encounter
--- OUTSIDE RECORDS SUMMARY | 2022-03-17 20:21 | XMS_ITS | Encounter Summary ---
:1965 Author Organization [facility] Address [address] [place] [address] Care Team Providers Name Role Phone Marcy Alvarenga POT RUNNER Primary Care Provider [phone] Reason for Visit Reason Onset Date Comments Medications Refill 04/19/2020 Encounter Details Date Type Department Care Team Description 04/19/2020 Telephone [facility] Alvarenga er Medications Refill [facility] Family Medicine - L, POT RUNNER [address], [place] [address] [place], [place] [id number] [place] [phone] (Wo rk) Social History Tobacco Use [...] made for 05/01/20 at 1500 with Marcy [facility] MEDICATION REFILL Medication: tamsulosin 0.4 Medication, [...] Visit Infectious Disease Lilian Rushing MD [address] [place] [address] [address] [place] [address] (Wo rk) documented as of this encounter Visit Diagnoses Not on filedocumented in this encounter Care Teams Signs Sales Representative Relationship Specialty Start Date End Date Gil-Marcy Santos, PCP - General Family Medicine - Primary 1 11/13/18 POT RUNNER Care [address] [place] [address] [address] [place] [address] documented as of this encounter
[2022-03-17 20:54] LABS: Abs Immature Grans 0.05 10^3/uL (0.0-0.06); Absolute Basophil Count 0.02 10^3/uL (0.0-0.2); Absolute Eosinophil Count 0.07 10^3/uL (0.0-0.7); Absolute Lymphocyte Count 1.74 10^3/uL (1.2-3.4); Absolute Monocyte Count 0.99 10^3/uL (0.1-0.8); Basophils % 0.3; HGB 11.8 g/dL (13.5-17.5); Immature Grans % 0.7; Lymphocytes % 25.7; MCH 27.5 pg (27.0-33.0); MCHC 31.9 % (32.0-36.0); MCV 86 fL (80-95); MPV 8.3 fL (8.0-11.0); Monocytes % 14.6; Neutrophils % 57.7; Platelet Count 393 10^3/uL (130-400); RBC 4.29 10^6/uL (4.36-5.78); RDW-SD 43.8 fL; WBC 6.77 10^3/uL (4.4-10.8)
[2022-03-17 21:40] LABS: ALT 26 U/L (16-63); AST 11 U/L (15-37); Albumin 3.3 g/dL (3.4-5.0); Alkaline Phosphatase 108 U/L (46-116); Anion Gap 7.1 mmol/L (3-11); BUN 23 mg/dL (7-18); Bilirubin, Total 0.2 mg/dL (0.2-1.0); CO2 27.9 mmol/L (21.0-32.0); CREATININE 1.4 mg/dL (0.70-1.30); Calcium 9.1 mg/dL (8.5-10.1); Chloride 105 mmol/L (98-107); Estimated GFR 52.62 (mL/min/1.73m2); Glucose 104 mg/dL (74-106); Magnesium 2.3 mg/dL (1.8-2.4); Potassium 4.7 mmol/L (3.5-5.1); Sodium 140 mmol/L (136-145); Total Protein 6.8 g/dL (6.4-8.2)
== END 2022-03-17 20:18 | disposition home or self-care (01) ==
LOC: LBN 20:17
PROVIDERS: Visit Provider Internal Medicine Infectious Disease
DX: B95.62 Methicillin resistant Staphylococcus aureus infection as the cause of diseases classified elsewhere (principal); M01.X62 Direct infection of left knee in infectious and parasitic diseases classified elsewhere
CPT/HCPCS: 80053; 83735; 84100; 85025

== ENCOUNTER 2022-03-20 20:14 | Outpatient (REF) | payer MEDICAID, SELFPAY ==
[2022-03-20 21:07] LABS: ALT 20 U/L (16-63); AST 11 U/L (15-37); Albumin 3.4 g/dL (3.4-5.0); Alkaline Phosphatase 103 U/L (46-116); Anion Gap 9.1 mmol/L (3-11); BUN 29 mg/dL (7-18); Bilirubin, Total 0.2 mg/dL (0.2-1.0); CO2 26.9 mmol/L (21.0-32.0); CREATININE 1.7 mg/dL (0.70-1.30); Calcium 8.4 mg/dL (8.5-10.1); Chloride 105 mmol/L (98-107); Estimated GFR 42.05 (mL/min/1.73m2); Glucose 148 mg/dL (74-106); Magnesium 1.9 mg/dL (1.8-2.4); Potassium 4.7 mmol/L (3.5-5.1); Sodium 141 mmol/L (136-145); Total Protein 6.7 g/dL (6.4-8.2)
[2022-03-20 21:23] LABS: PHOSPHORUS 3.9 mg/dL (2.6-4.7)
== END 2022-03-20 20:15 | disposition home or self-care (01) ==
LOC: LBN 20:14
PROVIDERS: Visit Provider Internal Medicine Infectious Disease
DX: B95.62 Methicillin resistant Staphylococcus aureus infection as the cause of diseases classified elsewhere (principal); M01.X62 Direct infection of left knee in infectious and parasitic diseases classified elsewhere
CPT/HCPCS: 80053; 83735; 84100